=== PATIENT | female | born 2000 | race Caucasian/White ===

== ENCOUNTER 2022-03-31 11:09 | Outpatient (CLI) | payer OTHER, MEDICAID, SELFPAY ==
--- OUTSIDE RECORDS SUMMARY | 2022-04-05 15:39 | XMS_ITS | Encounter Summary ---
:2000 Author Organization [facility] Address [address] [place] [address] Care Team Providers Name Role Phone Elsewhere, Pcp Primary Care Provider Unavailable Reason for Visit Reason Onset Date Comments Outpatient COVID-19 Testing 12/17/2020 Encounter Details Date Type Department Care Team Description 12/17/2020 External Outreach Department of Family Ancelmo Juan Contact With And MedicineRick D.O. (Suspected) Exposure Building, in [address] ([place], [place] Dx) [address] [facility] [address] [place], [place] [phone] [address] (Work) [phone] 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 Tobacco Use Types Packs/Day Years Used Date Smoking Tobacco: Never Sex Assigned at Date Recorded Not on file documented as of this encounter Progress Notes Zoraiad See, R.N. - 12/17/2020 1:19 PM CDT [...] RNA, V Asymptomatic (12/18/2020 10:44 AM CDT) [facility] Method Time Signature SARS-CoV-2 Swab, 12/19/2020 [...] pe rformed using the Aptima SARS-CoV-2 assay ([employer] on the [employer] tem under emergency use authorization (EUA) by the U.S. Food and Drug Administ ration. Fact sheets for this EUA assay can be fo und at the following links: For Healthcare Providers: https://www.emere a.gov/media/486229/download For Patients: https://www.fda.gov/media/ 094385/download Specimen Anatomical Collection Method Collection Time Receive d Time (Source) Location / / Volume Laterality Varies 12/18/2020 10:44 12/18/2020 3:01 (Nasopharynx) AM CDT PM CDT Juan Ag D.O. LAB MICROBIOLOGY - GENERAL O [facility]AV[facility]ERAGENEVA Performing Organization Address City/State/ZIP Code Phon e Number [facility]- [address] [place] [address] [place] [address] [address] documented in this encounter Visit Diagnoses Diagnosis Contact With And (Suspected) Exposure To COVID-19 - Primary documented in this encounter Additional Health Concerns Infection Onset Date Last Indicated Resolved Time COVID19 Pending 12/17/2020 12/18/2020 12/19/2020 12:13 AM CDT documented as of this encounter Care Teams Needle Control Cheniller Relationship Specialty Start Date End Date Elsewhere, Pcp PCP - General 03/07/20 documented as of this encounter
--- OUTSIDE RECORDS SUMMARY | 2022-04-05 15:39 | XMS_ITS | Encounter Summary ---
:2000 Author Organization [facility] Address [address] [place] [address] Care Team Providers Name Role Phone Unavailable [...] (129 lb 10.1 oz) 08/19/2016 6:27 PM EXECUTIVE MEETING MANAGER Height - - Body Mass Index - - documented in this encounter Progress Notes Ne Grissom - 08/19/2016 5:51 PM CST [id number] CHIEF COMPLAINT/REASON FOR VISIT Abdominal pain. HISTORY [...] concerns or complaints. MEDICATIONS Please see today's [facility] EMR dated 08/19/2016. No changes. ALLERGIES Please see today's [facility] EMR dated 08/19/2016. No changes. VITAL SIGNS Please see today's [facility] EMR dated 08/19/2016. No changes. PHYSICAL EXAMINATION [...] GRISSOM NP On: 08/22/2016 09:03 AM Source: [facility] Document Id: [id number] UTIVE MEETING MANAGER documented in this encounter Miscellaneous Notes Miscellaneous - Yasmani Cole M.D. - 08/20/2016 7:29 AM CST Custom Result Letter August 20, 2016 AMAIRANI MARTINEZ [address] [facility] [id number] Dear AMAIRANI MARTINEZ, I am pleased to report that your results from the following diagnostic test(s) are benign. If you have questions or concerns, please do not hesitate to call our office. Result Name Current Result XR Abdomen 2 Views 08/19/2016 Sincerely, YASMANI COLE [address] [place] [address] [id number] Electronic Signature Electronically Signed By: YASMANI COLE MD On: August 20, 2016 This document has images extracted. Source: [facility] POWERCHART Document Id: [id number] Electronically signed by Anastasia [facility] Band Instrument Maker [id number] at 01/17/2017 9:47 PM CDT Miscellaneous - Solomon Hanson L.P.N. - 08/19/2016 6:27 PM CST Pediatric Manager College Intake/History Pediatric Manager College Intake/History Entered On: 08/19/2016 18:30 EXECUTIVE MEETING MANAGER Performed On: 08/19/2016 18:27 EXECUTIVE MEETING MANAGER by SOLOMON HANSON LPN Intake Chief Complaint [...] oz) Dosing Weight Clinic : 58.8 kg SOLOOMN HANSON LPN - 08/19/2016 18:27 EXECUTIVE MEETING MANAGER General Info Information Given By : Patient, Mother Preferred Communication Mode : Verbal Languages : Japanese Is Patient Female and 13-50 no hysterectomy : Yes Status : Patient denies Are you ? : No SOLOMON HANSON LPN - 08/19/2016 18:27 EXECUTIVE MEETING MANAGER Subjective Pain Symptoms : Yes SOLOMON HANSON LPN - 08/19/2016 18:27 EXECUTIVE MEETING MANAGER Pain Scale Pain Scale Verbal 0-10 : Open SOLOMON HANSON LPN - 08/19/2016 18:27 EXECUTIVE MEETING MANAGER Pain Pain Assessment Grid Pain 1 Location : Abdomen SOLOMON HANSON LPN - 08/19/2016 18:27 EXECUTIVE MEETING MANAGER Dependent Habits Exposure to Tobacco Smoke : Care provider denies smoking in home Smoking Status : Never smoker Tobacco 2A : No Tobacco Use/Currently Using : No Tobacco Use/Last 30 Days : No Tobacco Use/Last 12 months : No SOLOMON HANSON LPN - 08/19/2016 18:27 EXECUTIVE MEETING MANAGER Source: [facility] POWERCHART Document Id: [id number] EXECUTIVE MEETING MANAGER!36 UTIVE MEETING MANAGER documented in this encounter Plan of Treatment Not on filedocumented as of this encounter Procedures Procedure Name Priority Date/Time Associated Diagnosis Comme nts DX ABDOMEN SUPINE Routine 08/19/2016 7:13 PM Resu lts for this WITH UPRIGHT OR EXECUTIVE MEETING MANAGER procedure ar e in DECUBITUS 2 VIEWS the result s section. documented in this encounter Results DX Abdomen Supine with Upright or Decubitus 2 Views (08/19/2016 7:13 PM EXECUTIVE MEETING MANAGER) Anatomical Region Laterality Modality Abdomen Right Radiographic Imaging Specimen (Source) Anatomical Collection Method Collection Time Re ceived Time Location / / Volume Laterality 08/19/2016 7:13 PM EXECUTIVE MEETING MANAGER Addenda Addendum by Provider, Bob Taylor 08/19/2016 7:13 PM EXECUTIVE MEETING MANAGER RAD^^^OW XR Abdomen 2 Views 08/19/2016 19:13:46 Impressions 08/20/2016 7:08 AM EXECUTIVE MEETING MANAGER 1. ??No acute findings. Please see above dictation. Narrative 08/20/2016 7:08 AM EXECUTIVE MEETING MANAGER EXAM: ??XR Abdomen 2 Views. DEMOGRAPHICS: ??15 [...]
--- OUTSIDE RECORDS SUMMARY | 2022-04-05 15:39 | XMS_ITS | Encounter Summary ---
:2000 Author Organization [facility] Address [address] [place] [address] Care Team Providers Name Role Phone Mary Farr M.D. Primary Care Provider Encounter Details Date Type Department Care Team Description 01/28/2017 Hospital Encounter HX [facility] Mer Encarnacion A PRN, C.N.P. [address] [place], [place] [phone] (Wo rk) 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 Tobacco Use Types Packs/Day Years Used Date Smoking Tobacco: Never Sex Assigned at Date Recorded Not on file documented as of this encounter Nursing Notes Melissa Carlton L.P.N. - 01/31/2017 3:06 PM CDT lab results 01/31/17 Results card sent, per Dr. Diallo. Electronically Signed By: MELISSA CARLTON LPN On: 01/31/2017 03:07 PM Source: [facility] POWERCHART Document Id: [id number] documented in this encounter Plan of Treatment [...] Component Value [facility] Method Time Signature HXChlamydia by POWERCHART [...] Component Value Ref Test Analysis Performed At [facility] REMOTV Range Method Time Signature HX GC by [...] on filedocumented in this encounter Care Teams Project Scheduler Relationship Specialty Start Date End Date Mary Farr M.D. PCP - General 01/20/17 02/03/17 documented as of this encounter
--- OUTSIDE RECORDS SUMMARY | 2022-04-05 15:39 | XMS_ITS | Encounter Summary ---
:2000 Author Organization [facility] Address [address] [place] [address] Care Team Providers Name Role Phone Mer Encarnacion APRN C.N.PRodney Primary Care Provider [phone] Encounter Details Date Type Department Care Team Description 03/03/2017 Hospital Encounter HX FBCV FAMILYPRA Isai Collins, P.ARodney-CRodney [address] [facility] [place] [phone] (Wo rk) 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 [...] Johnson, P.A.-C. - 03/03/2017 2:44 PM CDT [id number] CHIEF COMPLAINT/REASON FOR VISIT Possible UTI. HISTORY [...] JOHNSON PA-C On: 04/27/2017 09:41 PM Source: [facility] MHSDOLBEYNKAYLASYS Document Id: [id number] documented in this encounter Miscellaneous Notes Miscellaneous - Dickson Johnson - 03/09/2017 9:46 PM CDT Results Notification Document Contains Addenda Addendum by TAMARA FONTANA LPN on March 10, 2017 15:33:22 CDT Spoke with: ( _ ) Patient ( X Lilo ) Parent ( _ ) Spouse ( _ ) Child ( ) Other: _ Call back telephone number: [phone] Reason for Call: -lab results Chief Complaint: Patient's mom informed of message below. She states that their insurnace has changed and now they will need to be seen in [place]. She will talk with patient and find someone in [place] to followup with. Patient/Caller response to Education/Information [...] day Callers preferred language for Healthcare discussion: latvian Was an management specialist used for this call? no Other ( --_ ) Addendum by TAMARA FONTANA LPN on March 10, 2017 15:26:46 CDT Left message for patient's mom to return call. Addendum by VANE ALEXANDER on March 10, 2017 12:33:49 CDT Lilo Ramirez (mom) called back again - she will be off work at 1:45 so call back after that please. [phone] Addendum by VANE ALEXANDER on March 10, 2017 10:07:55 CDT Lilo Ramirez (mom) returned call - best time to reach her today is 12:30 - 1:00 (during her lunch break) - otherwise leave a message and she will try back again when she can. [phone] Addendum by TAMARA FONTANA LPN on March [...] Result Name MBO Review Culture Urine Source: [facility] POWERCHART Document Id: [id number] Miscellaneous - Tamara Fontana, LRodneyP.N. - 03/03/2017 2:54 PM CDT Pediatric Manager Truck Intake/History Pediatric Manager Truck Intake/History Entered On: 03/03/2017 14:57 CDT Performed [...] Given By : Patient, Mother Languages : Romanian Is Patient Female and 13-50 no hysterectomy : Yes Status : Patient denies Are you ? : No TAMARA FONTANA HEALTH PHYSICS TECHNICIAN - 03/03/2017 14:54 CDT Subjective Pain Symptoms : No TAMARA FONTANA HEALTH PHYSICS TECHNICIAN - 03/03/2017 14:54 CDT Dependent Habits Exposure to Tobacco Smoke : Care provider denies smoking in home Smoking Status : Never smoker Tobacco 2A : No Tobacco Use/Currently Using : No Tobacco Use/Last 30 Days : No Tobacco Use/Last 12 months : No TAMARA FONTANA HEALTH PHYSICS TECHNICIAN - 03/03/2017 14:54 CDT Source: [facility] POWERCHART Document Id: [id number] CDT!28 documented in this encounter Plan of [...] Aerobic, Urine (03/03/2017 3:45 PM CDT) [facility] gist Method Time Signature Bacterial POWERCHART Culture, Aerobic, Urine HXFinal Mixed ranjan. No POWERCHART further studies unless notified. [facility] Microbiology laboratory [phone]. Specimen Anatomical Collection Method Collection Time Receive [...] Color Yellow Colorless POWERCHART Specific <=1.005 POWERCHART [place], POCT, U Comment: Reference Range Specific [place]: 1.000-1.035 pH, POCT, Urine 6.0 <5.0 POWERCHART [...] on filedocumented in this encounter Care Teams Machine Turner Relationship Specialty Start Date End Date Mer Encarnacion, DUSTY, C.N.P. PCP - General 02/04/17 03/06/[address] [place] [phone] documented as of this encounter
--- OUTSIDE RECORDS SUMMARY | 2022-04-05 15:39 | XMS_ITS | Encounter Summary ---
:2000 Author Organization [facility] Address [address] [place] [address] Care Team Providers Name Role Phone Unavailable Primary Care Provider Unavailable Encounter Details Date Type Department Care Team Description 07/23/2016 Hospital Encounter HX NO MAPPING Mireya Baugh M.D. [address] [place], [place] [phone] (Wo rk) 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 Tobacco Use Types Packs/Day Years Used Date Smoking Tobacco: Never Assessed Sex Assigned at Date Recorded Not on file documented as of this encounter Miscellaneous Notes Miscellaneous - Conversion, Historical Provider Ser - 07/23/2016 11:59 PM EMPLOYMENT MANAGER Coding Summary-Paper Based CODING DATE: 08/04/2016 FINAL [facility] STATUS: * Discharged to Home or Self Care [facility] AD[facility] DX: REASON FOR VISIT DX: FINAL DX: PRINCIPAL: R35.0 Frequency of micturition SECONDARY: PROCEDURES DOCTOR NAME DATE NOTE: The code number assigned matches the documented diagnosis and / or procedure in the patient's chart. However, the narrative phrase printed from the coding software may appear abbreviated, or result in slightly different terminology. Coded By: ORIANA RAMOS Date Saved: 08/04/2016 04:34 pm [facility] Document Id: [id number] documented in this encounter Plan of Treatment Not on filedocumented as of this encounter Visit Diagnoses Not on filedocumented in this encounter Additional Health Concerns Assessment Noted Time PHQ-9 Depression Total Score: 1 04/22/2014 12:46 PM CD T documented as of this encounter
--- OUTSIDE RECORDS SUMMARY | 2022-04-05 15:39 | XMS_ITS | Encounter Summary ---
:2000 Author Organization [facility] Address [address] [place] [address] Care Team Providers Name Role Phone Unavailable Primary Care Provider Unavailable Encounter Details Date Type Department Care Team Description 07/23/2016 Hospital Encounter HX FBCV FAMILYPRA Marley Solorzano M.D. [address] [place], [place] [phone] (Wo rk) 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 [...] (127 lb 10.3 oz) 07/23/2016 3:13 PM NURSERY HAND Height 161.5 cm (5' 3.58) 07/23/2016 3:13 PM NURSERY HAND Body Mass Index 22.2 07/23/2016 3:13 PM NURSERY HAND Body Mass Index Percentile 70.10 % 07/23/2016 3:13 PM CS T Growth Chart: CDC (Girls, 2-20 Years) documented in this encounter Progress Notes Marley Hendricks M.D. - 07/23/2016 2:45 PM CST [id number] CHIEF COMPLAINT/ REASON FOR VISIT Dysuria. HISTORY [...] behalf by Shayy Tipton, a trained medical research assistant. The creation of this record is based on the scribe's personal observations and the provider's statements to them. This document has been thomas cked and approved by the attending provider. Marley Roberson M.D./niko Electronically Signed By: MARLEY HENDRICKS MD On: 08/07/2016 08:26 PM Source: [facility] MHSDOLBEYNONRADSYS Document Id: [id number] ERY HAND documented in this encounter Miscellaneous Notes Miscellaneous - Marley Hendricks M.D. - 07/28/2016 9:10 AM NURSERY HAND Custom Result Letter July 28, 2016 AMAIRANI MARTINEZ [facility] [id number] Dear AMAIRANI MARTINEZ, Chlamydia test is negative Result Name Current Result Chlamydia DNA Probe Review 07/23/2016 GC by Nucleic Acid Amplification 07/23/2016 Sincerely, MARLEY ROBERSON [address] [place] [address] Electronic Signature Electronically Signed By: MARLEY HENDRICKS MD On: July 28, 2016 This document has images extracted. Source: [facility] POWERCHART Document Id: [id number] Electronically signed by Anastasia, [facility] Bush Regenerator [id number] at 01/02/2017 10:58 AM CDT Miscellaneous - Marley Hendricks M.D. - 07/23/2016 7:46 PM NURSERY HAND Ambulatory Patient Summary [address] [id number] Visit Information Name: AMAIRANI MARTINEZ [facility] Number: [id number] Current Date: 07/23/2016 19:46:28 Physicians [...] day x 7 day(s) New Routed to [address] [address] sulfamethoxazole-trimethoprim (Bactrim DS 800 mg-160 mg oral tablet) 1 Tablet(s), Oral, two times a day x 5 day(s) New Routed to [address] [address] Stop Taking the Following Medications: [...] if you dont have one. Go to [email or web address] and click on Create Your Account. Then, follow the directions to complete the online form. Youll be asked for your [facility] number which you can find at the top of this document. Your Goals/Additional instructions: Source: [facility] POWERCHART Document Id: [id number] ERY HAND Miscellaneous - Marley Hendricks M.D. - 07/23/2016 7:46 PM NURSERY HAND Ambulatory Discharge Medication List [address] [id number] Visit Information Name: DONYA AMAIRANICHESTER MOBLEY [facility] Number: [id number] Current Date: 07/23/2016 19:46:27 Attending [...] day x 7 day(s) New Routed to [facility] [address] [place] [address] sulfamethoxazole-trimethoprim (Bactrim DS 800 mg-160 mg oral tablet) 1 Tablet(s), Oral, two times a day x 5 day(s) New Routed to [facility] [address] [place] [address] Stop Taking the Following Medications: [...] MD Signed On:23-JUL-2016 19:46:15 Additional Information: [facility] Document Id: [id number] ERY HAND Miscellaneous - Marley Hendricks M.D. - 07/23/2016 7:42 PM NURSERY HAND Addendum by RUBIO SYLVESTER CMA on July 26, 2016 10:46:32 NURSERY HAND Spoke with: ( _ ) Patient ( [...] language for Healthcare discussion: _ Was an investigations consultant used for this call? _ Other ( --_ ) From: MARLEY HENDRICKS MD To: FADI Gaona Nurse; Sent: 07/23/2016 19:42:24 NURSERY HAND Please notify Amairani that she has a vaginal infection. I sent rx for metronidazole to the pharmacy.One pill twice daily for seven days. No alcohol. Source: [facility] POWERCHART Document Id: [id number] Electronically signed by Anastasia, [facility] [place] Regenerator [id number] at 01/02/2017 10:58 AM CDT Miscellaneous - Araceli Troy L.P.N. - 07/23/2016 3:13 PM CST Pediatric Trauma Surgeon Intake/History Pediatric Trauma Surgeon Intake/History Entered On: 07/23/2016 15:35 NURSERY HAND Performed On: 07/23/2016 15:13 NURSERY HAND by ARACELI TROY REAL ESTATE APPRAISER Intake Chief Complaint : burning with urination [...] Mass Index : 22.2 kg/m2 ARACELI TROY REAL ESTATE APPRAISER - 07/23/2016 15:13 NURSERY HAND General Info Mode of Arrival : Ambulatory Present in Room During Exam/Procedure : Alone Information Given By : Patient Languages : Macanese Is Patient Female and 13-50 no hysterectomy : Yes Status : Patient denies Are you ? : No ARACELI TROY LPN - 07/23/2016 15:13 NURSERY HAND Subjective Pain Symptoms : No ARACELI TROY LPN - 07/23/2016 15:13 NURSERY HAND Dependent Habits Exposure to Tobacco Smoke : Care provider denies smoking in home Smoking Status : Never smoker Tobacco 2A : No Tobacco Use/Currently Using : No Tobacco Use/Last 30 Days : No Tobacco Use/Last 12 months : No ARACELI TROY LPN - 07/23/2016 15:13 NURSERY HAND Source: [facility] POWERCHART Document Id: [id number] NURSERY HAND!36 ERY HAND documented in this encounter Plan of Treatment Not on filedocumented as of this encounter Procedures Procedure Name Priority Date/Time Associated Comments Diagnosis URINALYSIS WITH Routine 07/23/2016 4:10 PM Result s for this MICROSCOPIC NURSERY HAND procedure are i n the results section. BACTERIAL CULTURE, Routine 07/23/2016 4:10 PM Res ults for this AEROBIC, URINE NURSERY HAND procedure are in the results section. TEST, U Routine 07/23/2016 4:10 PM Resu lts for this NURSERY HAND procedure are i n the results section. VAGINITIS BATTERY, Routine 07/23/2016 3:54 PM Res ults for this DNA (GENITAL) NURSERY HAND procedure are in the results section. CHLAMYDIA/GONORRHOEAE Routine 07/23/2016 3:54 PM Results for this AMPLIFIED RNA NURSERY HAND procedure are in the results section. CHLAMYDIA TRACHOMATIS Routine 07/23/2016 3:54 PM Results for this AMPLIFIED RNA NURSERY HAND procedure are in the results section. documented in this encounter Results (ABNORMAL) Urinalysis, Complete, Includes Microscopic (07/23/2016 4:10 PM NURSERY HAND) [facility] Method Time Signature Clarity Cloudy (A) Clear POWERCHART HXUr Color Yellow Colorless POWERCHART Specific 1.020 POWERCHART [place], POCT, U Comment: Reference Range Specific [place]: 1.000-1.035 pH, POCT, Urine 7.5 <5.0 POWERCHART [...] Laterality Urine, First 07/23/2016 4:10 PM Voided NURSERY HAND Marley Baugh M.D. LAB URINE ORDERABLES Performing Organization Address City/State/ZIP Code Phon e Number POWERCHART (ABNORMAL) Bacterial Culture, Aerobic, Urine (07/23/2016 4:10 PM NURSERY HAND) Analysis Performed At Patho logist Time Signature Bacterial SA <=0.5 POWERCHART Culture, (POSITIVE) Aerobic, Urine HXPre [facility] POWERCHART Comment: >100,000 cfu/mL Gram Positive Cocci Presumptive Staphylococcus aureus HXFinal SA POWERCHART Comment: >100,000 cfu/mL Staphylococcus aureus Specimen (Source) Anatomical Collection Method Collection Time Re ceived Time Location / / Volume Laterality Urine, First 07/23/2016 4:10 PM Voided NURSERY HAND Organism Antibiotic Method Susceptibility Staphylococcus aureus Ciprofloxacin [...] POWERCHART Test, Qualitative, Urine (07/23/2016 4:10 PM NURSERY HAND) [facility] Method Time Signature HXBeta-hCG Negative POWERCHART Qualitative Urine Specimen Anatomical Collection Method Collection Time Receive d Time (Source) Location / / Volume Laterality Urine 07/23/2016 4:10 PM 6 4:28 NURSERY HAND PM NURSERY HAND Marley Baugh M.D. LAB URINE ORDERABLES Performing Organization Address City/[facility] Code Phon e Number POWERCHART Chlamydia / Gonorrhoeae Amplified RNA (07/23/2016 3:54 PM NURSERY HAND) Component Value Ref Test Analysis Performed At [facility] [place] Range Method Time Signature HX GC by Nucleic POWERCHART Acid Amplification HXFinal Negative for POWERCHART Neisseria gonorrhea by RNA amplification . HXFinal Reference: POWERCHART Negative HXFinal If you POWERCHART submitted a female urine sample, please note it is a Laboratory Developed Test. Specimen (Source) Anatomical Collection Method Collection Time Re ceived Time Location / / Volume Laterality Vagina 07/23/2016 3:54 PM NURSERY HAND Marley Baugh M.D. LAB MICROBIOLOGY - GEN ERAL ORDERABLES Performing Organization Address City/[facility]/ZIP Code Phon e Number POWERCHART Chlamydia Trachomatis Amplified RNA (07/23/2016 3:54 PM NURSERY HAND) Component Value Ref Test Analysis Performed At [facility] Method Time Signature HXChlamydia by POWERCHART Nucleic Acid Amplification HXFinal Negative for POWERCHART Chlamydia trachomatis by RNA amplification. HXFinal Reference: POWERCHART Negative HXFinal If you POWERCHART submitted a female urine sample, please note it is a Laboratory Developed Test. Specimen (Source) Anatomical Collection Method Collection Time Re ceived Time Location / / Volume Laterality Vagina 07/23/2016 3:54 PM NURSERY HAND Marley Baugh M.D. LAB MICROBIOLOGY - GEN ERAL ORDERABLES Performing Organization Address City/State/ZIP Code Phon e Number POWERCHART (ABNORMAL) VAGINITIS BATTERY, DNA (GENITAL) (07/23/2016 3:54 PM NURSERY HAND) Component Value Ref Test Analysis Performed At [facility] [place] Method Time Signature HXVaginitis (POSITIVE) POWERCHART Battery, DNA (Genital) HXFinal Trichomonas POWERCHART vaginalis DNA negative HXFinal Gardnerella POWERCHART vaginalis DNA positive HXFinal Paige species POWERCHART DNA negative HXFinal Reference: POWERCHART Negative Specimen (Source) Anatomical Collection Method Collection Time Re ceived Time Location / / Volume Laterality Vagina 07/23/2016 3:54 PM NURSERY HAND Marley Baugh M.D. LAB HISTORICAL ORDERS Performing Organization Address City/State/ZIP Code Phon e Number POWERCHART documented in this encounter Visit Diagnoses Not on filedocumented in this encounter Additional Health Concerns Assessment Noted Time PHQ-9 Depression Total Score: 1 04/22/2014 12:46 PM CD T documented as of this encounter
--- OUTSIDE RECORDS SUMMARY | 2022-04-05 15:39 | XMS_ITS | Clinical Summary ---
:2000 Author Organization [facility] Address [address] [place] [address] Care Team Providers Name Role Phone Elsewhere, Pcp Primary Care Provider Unavailable Source Comments Patient records contain information from all sites at [facility]. For routine questions regarding patient records, call [phone] during business hours, M-F 8:00 AM - 5:00 PM Central Time. Record requests for emergency care only can be directed to [phone] at any time.[facility] Immunizations Name Administration Dates Next Due 4vHPV [...] Address T ype Group Dates PREFERREDONE PREFERREDONE [id number] 2019-Pre [phone] PPO ADMINISTRATIVE ADMINISTRATIVE sent [phone] SERVICES SERVICES [place] [phone] Care Teams Last Dipper Relationship Specialty Start Date End Date Elsewhere, Pcp PCP - General 03/07/20
--- OUTSIDE RECORDS SUMMARY | 2022-04-05 15:39 | XMS_ITS | Encounter Summary ---
:2000 Author Organization [facility] Address [address] [place] [address] Care Team Providers Name Role Phone Elsewhere, Pcp Primary Care Provider Unavailable Encounter Details Date Type Department Care Team Description 12/18/2020 Admin Visit Department of Family Medicine, [address] [address] [facility] [phone] 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 Tobacco Use Types Packs/Day Years [...] documented as of this encounter Care Teams Process Automation Engineer Relationship Specialty Start Date End Date Elsewhere, Pcp PCP - General 03/07/20 documented as of this encounter
--- OUTSIDE RECORDS SUMMARY | 2022-04-05 15:39 | XMS_ITS | Encounter Summary ---
:2000 Author Organization [facility] Address [address] [place] [address] Care Team Providers Name Role Phone Unavailable Primary Care Provider Unavailable Encounter Details Date Type Department Care Team Description 11/16/2016 Hospital Encounter HX [facility] Jef Bonilla M.D. [address] [place] [address] ( effie) 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 Tobacco [...] Bonilla M.D. - 11/16/2016 3:40 PM CDT [id number] Patient presents initially with her mom and [...] out whether she should see a thoracic source water protection specialist or a chest surgeon. With the [...] BONILLA MD On: 11/18/2016 04:34 PM Source: [facility] MHSDOLBEYNONRADSYS Document Id: [id number] documented in this encounter Miscellaneous Notes Miscellaneous - Amelie Christie, LRodneyP.N. - 11/18/2016 4:02 PM CDT *General Message From: AMELIE CHRISTIE LPN ( Pediatric Nurse) Sent: 11/18/2016 16:02:57 CDT Subject: *General Message referral submitted to [facility], and to 's insurance Source: [facility] POWERCHART Document Id: [id number] Electronically signed by Anastasia [facility] Cheesemaker Helper [id number] at 01/18/2017 7:36 AM CDT Miscellaneous - Caballero, Lesley S, L.P.N. - 11/16/2016 3:58 PM CDT Pediatric Metal Control Coordinator Intake/History Pediatric Metal Control Coordinator Intake/History Entered On: 11/16/2016 16:00 CDT Performed On: 11/16/2016 15:58 CDT by LESLEY CABALLERO EXPERIMENTAL OUTBOARD MOTORS MECHANIC Intake Peripheral Pulse Rate : 77 /min [...] 11/16/2016 15:58 CDT General Info Languages : Cuban Is Patient Female and 13-50 no hysterectomy [...] CABALLERO LPN - 11/16/2016 15:58 CDT Source: [facility] POWERCHART Document Id: [id number] CDT!34 documented in this encounter Plan of [...]
--- OUTSIDE RECORDS SUMMARY | 2022-04-05 15:39 | XMS_ITS | Encounter Summary ---
:2000 Author Organization [facility] Address [address] [place] [address] Care Team Providers Name Role Phone Unavailable Primary Care Provider Unavailable Encounter Details Date Type Department Care Team Description 09/15/2016 Hospital Encounter HX FBCV FAMILYPRA Mireya Solorzano M.D. [address] [place], [place] [phone] (Wo rk) 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 [...] (128 lb 4.9 oz) 09/15/2016 2:20 PM AUTOMATIC LUMP MAKING MACHINE TENDER Height - - Body Mass Index - - documented in this encounter Progress Notes Mireya Hendricks M.D. - 09/15/2016 2:10 PM CST [id number] CHIEF COMPLAINT/ REASON FOR VISIT Sore throat [...] behalf by Mary Tipton, a trained medical assistant supervisor. The creation of this record is based on the scribe's personal observations and the provider's statements to them. This document has been thomas cked and approved by the attending provider. Mireya Roberson M.D./niko Electronically Signed By: MIREYA HENDRICKS MD On: 10/14/2016 08:15 AM Source: [facility] MHSDOLBEYNONRADSYS Document Id: [id number] MATIC LUMP MAKING MACHINE TENDER documented in this encounter Miscellaneous Notes Miscellaneous - Mireya Hendricks M.D. - 09/16/2016 10:21 PM AUTOMATIC LUMP MAKING MACHINE TENDER Ambulatory Patient Summary [address] [id number] Visit Information Name: AMAIRANI MARTINEZ [facility] Number: [id number] Current Date: 09/16/2016 22:21:07 [...] if you dont have one. Go to [email or web address] and click on Create Your Account. Then, follow the directions to complete the online form. Youll be asked for your [facility] number which you can find at the top of this document. Your Goals/Additional instructions: Source: [facility] Zumbl Document Id: [id number] MATIC LUMP MAKING MACHINE TENDER Miscellaneous - Mireya Hendricks M.D. - 09/16/2016 10:21 PM AUTOMATIC LUMP MAKING MACHINE TENDER Ambulatory Discharge Medication List [address] [id number] Visit Information Name: AMAIRANI MARTINEZ [facility] Number: [id number] Current Date: 09/16/2016 22:21:06 [...] MD Signed On:16-SEP-2016 22:21:00 Additional Information: Source: [facility] POWERCHART Document Id: [id number] MATIC LUMP MAKING MACHINE TENDER Miscellaneous - Amelie Christie L.P.N. - 09/15/2016 2:20 PM CST Pediatric Oncology Radiation Physician Intake/History Pediatric Oncology Radiation Physician Intake/History Entered On: 09/15/2016 14:24 AUTOMATIC LUMP MAKING MACHINE TENDER Performed On: 09/15/2016 14:20 AUTOMATIC LUMP MAKING MACHINE TENDER by AMELIE CHRISTIE MILITARY TECHNOLOGY MANAGER Intake Chief Complaint : c/o ST for [...] Weight Clinic : 58.2 kg AMELIE CHRISTIE MILITARY TECHNOLOGY MANAGER - 09/15/2016 14:20 AUTOMATIC LUMP MAKING MACHINE TENDER General Info Languages : Bengali Is Patient Female and 13-50 no hysterectomy : Yes Status : Patient denies Are you ? : No AMELIE CHRISTIE LPN - 09/15/2016 14:20 AUTOMATIC LUMP MAKING MACHINE TENDER Subjective Pain Symptoms : No AMELIE CHRISTIE LPN - 09/15/2016 14:20 AUTOMATIC LUMP MAKING MACHINE TENDER Dependent Habits Exposure to Tobacco Smoke : Care provider denies smoking in home Smoking Status : Never smoker Tobacco 2A : No Tobacco Use/Currently Using : No Tobacco Use/Last 30 Days : No Tobacco Use/Last 12 months : No AMELIE CHRISTIE LPN - 09/15/2016 14:20 AUTOMATIC LUMP MAKING MACHINE TENDER Source: [facility] POWERCHART Document Id: [id number] AUTOMATIC LUMP MAKING MACHINE TENDER!30 MATIC LUMP MAKING MACHINE TENDER documented in this encounter Plan of Treatment Not on filedocumented as of this encounter Procedures Procedure Name Priority Date/Time Associated Diagnosis Comme nts RAPID STREP A Routine 09/15/2016 2:25 PM Results for this SCREEN AUTOMATIC LUMP MAKING MACHINE TENDER procedure are i n the results section. RAPID STREP A Routine 09/15/2016 2:25 PM Results for this SCREEN AUTOMATIC LUMP MAKING MACHINE TENDER procedure are i n the results section. documented in this encounter Results Rapid Strep A Screen (09/15/2016 2:25 PM AUTOMATIC LUMP MAKING MACHINE TENDER) [facility] Method Time Signature HXRapid Strep POWERCHART Confirmation HXPre Negative for POWERCHART Group A Strep by culture. HXFinal Negative for POWERCHART Group A Strep by culture. Specimen Anatomical Collection Method Collection Time Receive d Time (Source) Location / / Volume Laterality Throat 09/15/2016 2:25 PM 7 2:25 AUTOMATIC LUMP MAKING MACHINE TENDER PM AUTOMATIC LUMP MAKING MACHINE TENDER Mireya Baugh M.D. LAB MICROBIOLOGY - GEN ERAL ORDERABLES Performing Organization Address [facility] Code Phon e Number POWERCHART Rapid Strep A Screen (09/15/2016 2:25 PM AUTOMATIC LUMP MAKING MACHINE TENDER) [facility] Method Time Signature HXStrep A POWERCHART Screen Rapid HXFinal Negative for POWERCHART Strep Group A by rapid screen. HXFinal Culture POWERCHART confirmation to follow. Specimen (Source) Anatomical Collection Method Collection Time Re ceived Time Location / / Volume Laterality Throat 09/15/2016 2:25 PM AUTOMATIC LUMP MAKING MACHINE TENDER Mireya Baugh M.D. LAB MICROBIOLOGY - GEN ERAL ORDERABLES Performing Organization Address City/[facility] Code Phon e Number POWERCHART documented in this encounter Visit Diagnoses Not on filedocumented in this encounter Additional Health Concerns Assessment Noted Time PHQ-9 Depression Total Score: 1 04/22/2014 12:46 PM CD T documented as of this encounter
--- OUTSIDE RECORDS SUMMARY | 2022-04-05 15:39 | XMS_ITS | Encounter Summary ---
:[address] [facility] Address [address] [place] [address] Care Team Providers Name Role Phone Unavailable Primary Care Provider Unavailable Encounter Details Date Type Department Care Team Description 06/15/2016 Hospital Encounter HX FBCV FAMILYPRA Kecia Garcia APRN, C.N.P. [address] [place], [place] [phone] (Wo rk) 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 [...] (132 lb 2.7 oz) 06/15/2016 3:14 PM WEBSPHERE COMMERCE ARCHITECT Height 162 cm (5' 3.78) 06/15/2016 3:14 PM WEBSPHERE COMMERCE ARCHITECT Body Mass Index 22.84 06/15/2016 3:14 PM WEBSPHERE COMMERCE ARCHITECT Body Mass Index Percentile 75.63 % 06/15/2016 [...] APRN, CNP On: 06/15/2016 03:53 PM Source: [facility] POWERCHART Document Id: [id number] PHERE COMMERCE ARCHITECT documented in this encounter Nursing Notes Kecia [...] ?? Muffled voice ?? New rash ?? [phone] [facility], [address] [place] [address], [place] [address]. All rights reserved. This information is not intended as a substitute for professional medical care. Always follow your healthcare professional's instructions. This document has images extracted. Please consider using [employer] for all your patient education needs. Source: [facility] POWERCHART Document Id: [id number] PHERE COMMERCE ARCHITECT documented in this encounter Miscellaneous Notes Miscellaneous - Kecia Garcia APRN, C.N.P. - 06/15/2016 3:52 PM CST Ambulatory Discharge Medication List [address] [id number] Visit Information Name: AMAIRANI NAQVI [facility] Number: [id number] Current Date: 06/15/2016 15:52:51 Attending Provider: KECIA GARCIA APRN [facility] Primary Care Provider: SHAYY HERNANDEZ MD AMAIRANI [...] CNP Signed On:15-JUN-2016 15:52:43 Additional Information: Source: [facility] POWERCHART Document Id: [id number] PHERE COMMERCE ARCHITECT Miscellaneous - Kecia Garcia APRN, C.N.P. - 06/15/2016 3:52 PM CST Ambulatory Patient Summary [address] [id number] Visit Information Name: AMAIRANI NAQVI [facility] Number: [id number] Current Date: 06/15/2016 15:52:52 Physicians [...] are not improving over the next week. [id number] Prompt Medical Attention if any of the [...] ?? Muffled voice ?? New rash ?? [phone] [facility], [address] [place] [address], [place] [address]. All rights reserved. This information is not [...] dont have one. Go to [email or web address] and click on Create Your Account. Then, follow the directions to complete the online form. Youll be asked for your [facility] number which you can find at the top of this document. Your Goals/Additional instructions: This document has images extracted. Please consider using [employer] for all your patient education needs. Source: [facility] POWERCHART Document Id: [id number] PHERE COMMERCE ARCHITECT Miscellaneous - Ara Lange L.P.NRodney - 06/15/2016 3:14 PM CST Pediatric Mottler Operator Intake/History Pediatric Mottler Operator Intake/History Entered On: 06/15/2016 15:16 WEBSPHERE COMMERCE ARCHITECT Performed On: 06/15/2016 15:14 WEBSPHERE COMMERCE ARCHITECT by ARA LANGE LPN Intake Chief Complaint [...] kg/m2 ARA LANGE MOIZ - 06/15/2016 15:14 WEBSPHERE COMMERCE ARCHITECT General Info Present in Room During Exam/Procedure : Mother Information Given By : Patient, Mother Preferred Communication Mode : Verbal Languages : Croatian Is Patient Female and 13-50 no hysterectomy : Yes Status : Patient denies Are you ? : No ARA LANGE MOIZ - 06/15/2016 15:14 WEBSPHERE COMMERCE ARCHITECT Subjective Pain Symptoms : Yes ARA LANGE MOIZ - 06/15/2016 15:14 WEBSPHERE COMMERCE ARCHITECT Pain Scale Pain Scale Verbal 0-10 : Open ARA LANGE MOIZ - 06/15/2016 15:14 WEBSPHERE COMMERCE ARCHITECT Pain Pain Assessment Grid Pain 1 Location : Throat Intensity : 7 Time Pattern : Intermittent ARA LANGE MOIZ - 06/15/2016 15:14 WEBSPHERE COMMERCE ARCHITECT Dependent Habits Exposure to Tobacco Smoke : Care provider denies smoking in home Smoking Status : Never smoker Tobacco 2A : No Tobacco Use/Currently Using : No Tobacco Use/Last 30 Days : No Tobacco Use/Last 12 months : No ARA LANGE MOIZ - 06/15/2016 15:14 WEBSPHERE COMMERCE ARCHITECT Source: [facility] POWERCHART Document Id: [id number] WEBSPHERE COMMERCE ARCHITECT!45 PHERE COMMERCE ARCHITECT documented in this encounter Plan of Treatment Not on filedocumented as of this encounter Procedures Procedure Name Priority Date/Time Associated Diagnosis Comme nts RAPID STREP A Routine 06/15/2016 3:51 PM Results for this SCREEN WEBSPHERE COMMERCE ARCHITECT procedure are i n the results section. RAPID STREP A Routine 06/15/2016 3:51 PM Results for this SCREEN WEBSPHERE COMMERCE ARCHITECT procedure are i n the results section. documented in this encounter Results Rapid Strep A Screen (06/15/2016 3:51 PM WEBSPHERE COMMERCE ARCHITECT) [facility] Method Time Signature HXRapid Strep POWERCHART Confirmation HXPre Negative for POWERCHART Group A Strep by culture. HXFinal Negative for POWERCHART Group A Strep by culture. Specimen Anatomical Collection Method Collection Time Receive d Time (Source) Location / / Volume Laterality Throat 06/15/2016 3:51 PM 6 3:51 WEBSPHERE COMMERCE ARCHITECT PM WEBSPHERE COMMERCE ARCHITECT Kecia J Myrom BOAT LOADER HELPER, C.N.P. LAB MICROBIOLOGY - GENERAL ORDERABLES Performing Organization Address City/State/ZIP Code Phon e Number POWERCHART Rapid Strep A Screen (06/15/2016 3:51 PM WEBSPHERE COMMERCE ARCHITECT) [facility] Method Time Signature HXStrep A POWERCHART Screen Rapid HXFinal Negative for POWERCHART Strep Group A by rapid screen. HXFinal Culture POWERCHART confirmation to follow. Specimen (Source) Anatomical Collection Method Collection Time Re ceived Time Location / / Volume Laterality Throat 06/15/2016 3:51 PM WEBSPHERE COMMERCE ARCHITECT Kecia Garcia APRN, C.N.P. LAB MICROBIOLOGY - GENERAL ORDERABLES Performing Organization Address City/State/[facility] Code Phon e Number POWERCHART documented in this encounter Visit Diagnoses Not on filedocumented in this encounter Additional Health Concerns Assessment Noted Time PHQ-9 Depression Total Score: 1 04/22/2014 12:46 PM CD T documented as of this encounter
--- OUTSIDE RECORDS SUMMARY | 2022-04-05 15:39 | XMS_ITS | Encounter Summary ---
:2000 Author Organization [facility] Address [address] [place] [address] Care Team Providers Name Role Phone Elsewhere, Pcp Primary Care Provider Unavailable Reason for Visit Reason Onset Date Comments Outpatient COVID-19 Testing 06/15/2020 Encounter Details Date Type Department Care Team Description 06/15/2020 External Outreach Department of Juan Ag Infect ion Upper Internal Medicine in J, D.O. Respiratory (Primary [place], [place] [address] Dx) [address] [place] [phone] 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 Tobacco Use Types Packs/Day Years Used Date Smoking Tobacco: Never Sex Assigned at Date Recorded Not on file documented as of this encounter Progress Notes Areli Li CRodneyMRodneyARodney - 06/15/2020 8:42 AM CST Encounter created for the drive-through COVID-19 testing. TOR FUELING SUPERVISOR documented in this encounter Plan of Treatment Not on filedocumented as of this encounter Procedures Procedure Name Priority Date/Time Associated Diagnosis Comme nts SARS CORONAVIRUS-2 Routine 06/15/2020 1:04 PM Infection Upper Results for this RNA, V REACTOR FUELING SUPERVISOR Respiratory procedure are i n the results section. documented in this encounter Results SARS Coronavirus-2 RNA, V Symptomatic (06/15/2020 1:04 PM REACTOR FUELING SUPERVISOR) [facility] Method Time Signature SARS-CoV-2 Swab, 06/16/2020 MKTO Specimen Nasopharynx 2:04 PM REACTOR FUELING SUPERVISOR Source SARS CoV-2 Undetected Undetected 06/16/2020 MKTO RNA, TMA 2:04 PM REACTOR FUELING SUPERVISOR Comment: SARS-CoV-2 RNA absent. This result does not rule out COVID-19 in the patient, as the sensitivity of the test depends o n the timing of the specimen collection and the quality of the specim en. Result should be correlated with patient's history and clinical presentat ion. ----ADDITIONAL INFORMATION---- This test is performed using the Aptima SARS-CoV-2 assay ([employer] which has received Emergency Use Authori zation (EUA) by the U.S. Food and Drug Administration. Fact sheets for this Emergency Use Autho rization (EUA) assay can be found at the following links: For Healthcare Providers: https://www.[facility] a.gov/media/811343/download For Patients: https://www.fda.gov/media/ 564436/download Specimen Anatomical Collection Method Collection Time Receive d Time (Source) Location / / Volume Laterality Varies 06/15/2020 1:04 PM 0 (Nasopharynx) REACTOR FUELING SUPERVISOR 11:28 PM REACTOR FUELING SUPERVISOR Juan Ag D.O. LAB MICROBIOLOGY - GENERAL O DEJAN Performing Organization Address City/State/ZIP Code Phon e Number [facility]- [address] [place] [address] [place] [address] [address] documented in this encounter Visit Diagnoses Diagnosis Infection Upper Respiratory - Primary documented in this encounter Additional Health Concerns Infection Onset Date Last Indicated Resolved Time COVID19 Pending 06/15/2020 06/15/2020 06/16/2020 2:04 PM REACTOR FUELING SUPERVISOR documented as of this encounter Care Teams Campus Aide Relationship Specialty Start Date End Date Elsewhere, Pcp PCP - General 03/07/20 documented as of this encounter
--- OUTSIDE RECORDS SUMMARY | 2022-04-05 15:39 | XMS_ITS | Encounter Summary ---
:2000 Author Organization [facility] Address [address] [place] [address] Care Team Providers Name Role Phone Elsewhere, Pcp Primary Care Provider Unavailable Encounter Details Date Type Department Care Team Description 06/15/2020 Admin Visit Department of Family Medicine, [address] [address] [facility] [phone] 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 Tobacco Use Types Packs/Day Years Used Date Smoking Tobacco: Never Sex Assigned at Date Recorded Not on file documented as of this encounter Plan of Treatment Not on filedocumented as of this encounter Visit Diagnoses Not on filedocumented in this encounter Additional Health Concerns Infection Onset Date Last Indicated Resolved Time COVID19 Pending 06/15/2020 06/15/2020 06/16/2020 2:04 PM TOOL MACHINIST documented as of this encounter Care Teams Custom Feed Mill Operator Relationship Specialty Start Date End Date Elsewhere, Pcp PCP - General 03/07/20 documented as of this encounter
--- OUTSIDE RECORDS SUMMARY | 2022-04-05 15:39 | XMS_ITS | Encounter Summary ---
:2000 Author Organization [facility] Address [address] [place] [address] Care Team Providers Name Role Phone Unavailable Primary Care Provider Unavailable Encounter Details Date Type Department Care Team Description 06/15/2016 Hospital Encounter HX NO MAPPING Mer Encarnacion, DUSTY, C.N.P. [address] [place], [place] [phone] (Wo rk) 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 Tobacco Use Types Packs/Day Years Used Date Smoking Tobacco: Never Assessed Sex Assigned at Date Recorded Not on file documented as of this encounter Miscellaneous Notes Miscellaneous - Conversion, Historical Provider Ser - 06/15/2016 11:59 PM BUSINESS DATA ANALYST Coding Summary-Paper Based CODING DATE: 06/24/2016 FINAL [facility] STATUS: * Discharged to Home or Self Care [facility]: REASON FOR VISIT DX: [...] MOSS Date Saved: 06/24/2016 11:23 am Source: [employer] Document Id: [id number] documented in this encounter Plan of Treatment Not on filedocumented as of this encounter Visit Diagnoses Not on filedocumented in this encounter Additional Health Concerns Assessment Noted Time PHQ-9 Depression Total Score: 1 04/22/2014 12:46 PM CD T documented as of this encounter
--- OUTSIDE RECORDS SUMMARY | 2022-04-05 15:39 | XMS_ITS | Encounter Summary ---
:2000 Author Organization [facility] Address [address] [place] [address] Care Team Providers Name Role Phone Unavailable Primary Care Provider Unavailable Encounter Details Date Type Department Care Team Description 09/15/2016 Hospital Encounter HX NO MAPPING Mireya Baugh M.D. [address] [place], [place] [phone] (Wo rk) 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 Tobacco Use Types Packs/Day Years Used Date Smoking Tobacco: Never Sex Assigned at Date Recorded Not on file documented as of this encounter Miscellaneous Notes Miscellaneous - Anastasia, Claudia Provider Ser - 09/15/2016 11:59 PM ORNAMENTAL MACHINE OPERATOR Coding Summary-Paper Based CODING DATE: 09/27/[address] [facility] STATUS: * Discharged to Home or Self Care [facility] DX: REASON FOR VISIT DX: FINAL DX: PRINCIPAL: J02.9 Acute pharyngitis, unspecified SECONDARY: PROCEDURES DOCTOR NAME DATE NOTE: The code number assigned matches the documented diagnosis and / or procedure in the patient's chart. However, the narrative phrase printed from the coding software may appear abbreviated, or result in slightly different terminology. Coded By: NIKHIL MARINO Date Saved: 09/27/2016 10:22 am Source: [employer] Document Id: [id number] documented in this encounter Plan of Treatment Not on filedocumented as of this encounter Visit Diagnoses Not on filedocumented in this encounter Additional Health Concerns Assessment Noted Time PHQ-9 Depression Total Score: 1 04/22/2014 12:46 PM CD T documented as of this encounter
--- OUTSIDE RECORDS SUMMARY | 2022-04-05 15:39 | XMS_ITS | Encounter Summary ---
:2000 Author Organization [facility] Address [address] [place] [address] Care Team Providers Name Role Phone Elsewhere, Pcp Primary Care Provider Unavailable Reason for Visit Reason Comments COVID Inquiry Encounter Details Date Type Department Care Team Description 12/17/2020 Clinical Communication Department of [facility], Pcp COVID Inquiry [facility], [facility], in [place], [place] [address] [place] [address] 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 Tobacco Use Types Packs/Day Years Used Date Smoking Tobacco: Never Sex Assigned at Date Recorded Not on file documented as of this encounter Miscellaneous Notes Telephone Encounter - Kasia Ayala - 12/17/2020 12:26 PM CDT What is the purpose of the call?: Symptomatic (Calling PCP Office) Calling [place] [facility] What region is the patient calling from? : [place] Have you tested positive for COVID-19 in [...] sending patient for testing in [facility] or [facility], route encounter to the correct testing pool. documented in this encounter Plan of Treatment Not on filedocumented as of this encounter Visit Diagnoses Not on filedocumented in this encounter Care Teams Radio Program Checker Relationship Specialty Start Date End Date Elsewhere, Pcp PCP - General 03/07/20 documented as of this encounter
--- OUTSIDE RECORDS SUMMARY | 2022-04-05 15:39 | XMS_ITS | Clinical Summary ---
:2000 Author Organization [facility] [place] [address] Care Team Providers Name Role Phone Tamara Wei MD Primary Care Provider [phone] Allergies No known active allergies Medications [...] Comments Blood Pressure 118/60 07/17/2021 9:18 AM BUSINESS PLANNING DIRECTOR Pulse 109 07/17/2021 9:18 AM BUSINESS PLANNING DIRECTOR Temperature 36.4 ??C (97.5 ??F) 02/03/2021 3:05 PM CDT Respiratory Rate 14 02/03/2021 3:05 PM CDT Oxygen Saturation 99% 02/03/2021 3:05 PM CDT Inhaled Oxygen Concentration - - Weight 74.7 kg (164 lb 11.2 oz) 07/17/2021 9:18 AM BUSINESS PLANNING DIRECTOR Height 166 cm (5' 5.35) 07/17/2021 9:18 AM BUSINESS PLANNING DIRECTOR Body Mass Index 27.11 07/17/2021 9:18 AM BUSINESS PLANNING DIRECTOR Plan of Treatment Health Maintenance Due Date [...] ss Type Group PREFERRED ONE PREFERRED ONE [id number] 2017-Present [address] [place] [address] [place] [id number] 2021-Presen [address] [address] [place] [address] Care Teams Wireless Sales Manager Relationship Specialty Start Date End Date Tamara Wei MD PCP - General Family Practice 04/12/171999 [place] [address]
--- OUTSIDE RECORDS SUMMARY | 2022-04-05 15:39 | XMS_ITS | Encounter Summary ---
:2000 Author Organization [facility] Address [address] [place] [address] Care Team Providers Name Role Phone Alysha Mer Alba APRN C.N.PRodney Primary Care Provider [phone] Encounter Details Date Type Department Care Team Description 03/03/2017 Hospital Encounter HX NO MAPPING Arturo Collins, P.ARodney-CRodney [address] [facility] [place], [place] [phone] (Wo rk) 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 Tobacco Use Types Packs/Day Years Used Date Smoking Tobacco: Never Sex Assigned at Date Recorded Not on file documented as of this encounter Miscellaneous Notes Miscellaneous - Conversion, Historical Provider Ser - 03/03/2017 11:59 PM CDT Coding Summary-Paper Based CODING DATE: 03/14/2017 FINAL [facility] STATUS: * Discharged to Home or Self Care [facility] DX: REASON FOR VISIT DX: FINAL DX: PRINCIPAL: R30.0 Dysuria SECONDARY: PROCEDURES DOCTOR NAME DATE NOTE: The code number assigned matches the documented diagnosis and / or procedure in the patient's chart. However, the narrative phrase printed from the coding software may appear abbreviated, or result in slightly different terminology. Coded By: NIKHIL MARINO Date Saved: 03/14/2017 09:42 am [facility] Document Id: [id number] documented in this encounter Plan of Treatment Not on filedocumented as of this encounter Visit Diagnoses Not on filedocumented in this encounter Care Teams Weaving Teacher Relationship Specialty Start Date End Date Mer Encarnacion, DUSTY, C.N.P. PCP - General 02/04/17 03/06/[address] [phone] documented as of this encounter
--- OUTSIDE RECORDS SUMMARY | 2022-04-05 15:39 | XMS_ITS | Encounter Summary ---
:2000 Author Organization [facility] Address [address] [place] [address] Care Team Providers Name Role Phone Mary Farr M.D. Primary Care Provider Encounter Details Date Type Department Care Team Description 01/27/2017 Hospital Encounter HX [facility] Kecia Garcia APRN, C.N.P. [address] [place], [place] [phone] (Wo rk) Social [...] go to college. 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 MEDICATIONS No active medications [...] Child & Teen Checkup Charge Developmental Testing ([place]) Charge - 72303 OV Est Pt Prev Svc [id number] Encounter [...] # 84 tab(s), 3 Refill(s), Maintenance, Pharmacy: [id number] Electronically Signed By: KECIA GARCIA APRN, CNP On: 01/27/2017 04:39 PM Source: [facility] POWERCHART Document Id: [id number] documented in this encounter Procedure Notes Ara Lange L.P.N. - 01/27/2017 4:16 PM CDT Vision Testing Vision Testing Entered On: 01/27/2017 16:16 CDT Performed On: 01/27/2017 16:16 CDT by ARA LANGE LPN Vision Testing Eye, Right with Correction : 20/25 Eye, Left w/Correction : 20/20 ARA LANGE LPN - 01/27/2017 16:16 CDT Source: [facility] Document Id: [id number] CDT!4 Ara Lange L.P.N. - 01/27/2017 4:14 [...] LANGE LPN - 01/27/2017 16:14 CDT Source: [facility] Document Id: [id number] CDT!16 documented in this encounter Nursing Notes [...] whole grains every day. Less healthy foods-like cymraes fries, candy, and chips-should be eaten rarely. [...] this visit. Based on recommendations from the [employer], at this visit your [...] away. Next checkup at: PARENT NOTES: ?? [phone] Alyssa Hammond, [address] [place] [address], [place] [address]. All rights reserved. This information is not intended as a substitute for professional medical care. Always follow your healthcare professional's instructions. This document has images extracted. Please consider using [employer] for all your patient education needs. Source: [facility] [employer] Document Id: [id number] documented in this encounter Miscellaneous Notes Miscellaneous - Debbie Orta, MICHAEL([facility]) - 01/27/2017 5:13 PM CDT *General Message [...] Please send new order to queue. [facility] Document Id: [id number] Miscellaneous - Ara Lange L.P.N. - 01/27/2017 [...] LANGE LPN - 01/27/2017 16:44 CDT Source: [facility] Document Id: [id number] CDT!16 Miscellaneous - Kecia Garcia APRN, C.N.P. - 01/27/2017 4:28 PM CDT Ambulatory Patient Summary [facility] [address] [place] [phone] Visit Information Name: AMAIRANI NAQVI [facility] Number: [id number] Current Date: 01/27/2017 16:28:23 Physicians Attending Provider: KECIA GARCIA APRN CLAIMS CUSTOMER SERVICE REPRESENTATIVE Primary Care Provider: KECIA GARCIA APRN CLAIMS CUSTOMER SERVICE REPRESENTATIVE AMAIRANI NAQVI has been given the following [...] Oral, once a day New Routed to [address] [address] Stop Taking the Following Medications: Medication list [...] whole grains every day. Less healthy foods--like cymraes fries, candy, and chips--should be eaten rarely. [...] this visit. Based on recommendations from the [employer], at this visit your [...] away. Next checkup at: PARENT NOTES: ?? [phone] [facility], [address] [place] [address]. All rights reserved. This information is not [...] if you dont have one. Go to [email or web address] and click on Create Your Account. Then, follow the directions to complete the online form. Youll be asked for your [facility] number which you can find at the top of this document. Your Goals/Additional instructions: This document has images extracted. Please consider using [employer] for all your patient education needs. Source: [facility] POWERCHART Document Id: [id number] Miscellaneous - Kecia Garcia APRN, C.N.P. - 01/27/2017 4:28 PM CDT Ambulatory Discharge Medication List [address] [id number] Visit Information Name: AMAIRANI NAQVI [facility] Number: [id number] Current Date: 01/27/2017 16:28:23 Attending [...] Oral, once a day New Routed to [address] [address] Stop Taking the Following Medications: Medication list [...] CNP Signed On:27-JAN-2017 16:28:05 Additional Information: Source: [facility] POWERCHART Document Id: [id number] Miscellaneous - Ara Lange L.P.N. - 01/27/2017 3:58 PM CDT Pediatric Mortar Maker Intake/History Pediatric Mortar Maker Intake/History Entered On: 01/27/2017 16:01 CDT Performed [...] Preferred Communication Mode : Verbal Languages : Mozambican Is Patient Female and 13-50 no hysterectomy [...] LANGE LPN - 01/27/2017 15:58 CDT Source: [facility] POWERCHART Document Id: [id number] CDT!36 documented in this encounter Plan of Treatment Not on filedocumented as of this encounter Visit Diagnoses Not on filedocumented in this encounter Care Teams Sleep Medicine Physician Relationship Specialty Start Date End Date Mary Farr M.D. PCP - General 01/20/17 02/03/17 documented as of this encounter
--- OUTSIDE RECORDS SUMMARY | 2022-04-05 15:40 | XMS_ITS | Encounter Summary ---
:2000 Author Organization [facility] Address [address] [place] [address] Care Team Providers Name Role Phone Unavailable Primary Care Provider Unavailable Encounter Details Date Type Department Care Team Description 08/24/2012 Hospital Encounter HX [facility] Tom Peoples M.D. [address] [place], [place] [address] (Wo rk) 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 Tobacco Use Types Packs/Day Years Used Date Smoking Tobacco: Never Assessed Sex Assigned at Date Recorded Not on file documented as of this encounter Progress Notes Venus Peoples M.D. - 08/24/2012 11:15 AM CST [id number] CHIEF COMPLAINT/REASON FOR VISIT Sore throat. HISTORY OF PRESENT ILLNESS Amairani is 11 years old and here with her mother. Also seen along with [employer] student, Christine Corado. Amairani began this morning [...] PEOPLES MD On: 08/29/2012 08:22 AM Source: [facility] MHSDOLBEYNONRADSYS Document Id: [id number] TH INFORMATION TECHNOLOGIST documented in this encounter Miscellaneous Notes Miscellaneous - Venus Peoples M.D. - 08/24/2012 11:44 AM CST Ambulatory Depart Summary [address] [address] Visit Information Name: AMAIRANI MARTINEZ [facility] Number: [id number] Visit Date: 08/24/2012 11:44:18 Attending [...] your provider for clarification. Additional Information: Source: [facility] POWERCHART Document Id: [id number] RTO Boland - Venus Peoples M.D. - 08/24/2012 11:44 AM CST Ambulatory Patient Summary [address] [address] Visit Information Name: AMAIRANI MARTINEZ [facility] Number: [id number] Current Date: 08/24/2012 11:44:19 Physicians [...] No Appointments found Your Goals/Additional instructions: Source: [facility] POWERCHART Document Id: [id number] RTO Boland - Chantell Pisano 08/24/2012 11:22 AM CST Pediatric Infection Control Coordinator Intake/History Pediatric Infection Control Coordinator Intake/History Entered On: 08/24/2012 11:24 HEALTH INFORMATION TECHNOLOGIST Performed On: 08/24/2012 11:22 HEALTH INFORMATION TECHNOLOGIST by CHANTELL PISANO Intake Chief Complaint : throat hurt, fever, headache, runny nose, cough Temperature Core : 38C(Converted to: 100.4DegF) Apical Heart Rate : 82/min Respiratory Rate : 20/min Systolic Blood Pressure : 100mmHg Diastolic Blood Pressure : 56mmHg NIBP Mean : 71mmHg BP Location : Left upper extremity Blood Pressure Cuff Size : Pediatric CHANTELL PISANO - 08/24/2012 11:22 HEALTH INFORMATION TECHNOLOGIST Subjective Pain Symptoms : No CHANTELL PISANO - 08/24/2012 11:22 HEALTH INFORMATION TECHNOLOGIST Dependent Habits Tobacco Use/Currently Using : No Smoking Status : Never smoker CHANTELL PISANO - 08/24/2012 11:22 HEALTH INFORMATION TECHNOLOGIST Allergy Allergies (Active) NKA Estimated Onset Date: Unspecified ; Created By: CHANTELL UMANA; Reaction Status: Active ; Category: Drug ; Substance: NKA ; Type: Allergy ; Updated By: CHANTELL UMANA; Reviewed Date: 08/24/201211:22 HEALTH INFORMATION TECHNOLOGIST Source: [facility] POWERCHART Document Id: [id number] TH INFORMATION TECHNOLOGIST documented in this encounter Plan of Treatment Not on filedocumented as of this encounter Procedures Procedure Name Priority Date/Time Associated Diagnosis Comme nts RAPID STREP A Routine 08/24/2012 11:35 AM Results for this SCREEN HEALTH INFORMATION TECHNOLOGIST procedure are i n the results section. RAPID STREP A Routine 08/24/2012 11:35 AM Results for this SCREEN HEALTH INFORMATION TECHNOLOGIST procedure are i n the results section. documented in this encounter Results Rapid Strep A Screen (08/24/2012 11:35 AM HEALTH INFORMATION TECHNOLOGIST) [facility] Method Time Signature HXRapid Strep POWERCHART Confirmation HXFinal Negative POWERCHART Specimen Anatomical Collection Method Collection Time Receive d Time (Source) Location / / Volume Laterality Throat 08/24/2012 11:35 08/24/2012 AM HEALTH INFORMATION TECHNOLOGIST 11:35 AM HEALTH INFORMATION TECHNOLOGIST Venus Peoples M.D. LAB MICROBIOLOGY - GENERAL O DEJAN Performing Organization Address City/[facility] Code Phon e Number POWERCHART Rapid Strep A Screen (08/24/2012 11:35 AM HEALTH INFORMATION TECHNOLOGIST) [facility] Method Time Signature HXStrep A POWERCHART Screen Rapid HXFinal Negative for POWERCHART Strep Group A by rapid screen. HXFinal Culture POWERCHART confirmation to follow. Specimen (Source) Anatomical Collection Method Collection Time Re ceived Time Location / / Volume Laterality Throat 08/24/2012 11:35 AM HEALTH INFORMATION TECHNOLOGIST Venus Peoples M.D. LAB MICROBIOLOGY - GENERAL O DEJAN Performing Organization Address City/[facility] Code Phon e Number POWERCHART documented in this encounter Visit Diagnoses Not on filedocumented in this encounter
--- OUTSIDE RECORDS SUMMARY | 2022-04-05 15:40 | XMS_ITS | Encounter Summary ---
:2000 Author Organization [facility] Address [address] [place] [address] Care Team Providers Name Role Phone Unavailable Primary Care Provider Unavailable Encounter Details Date Type Department Care Team Description 09/28/2010 Hospital Encounter HX [facility] Tom Peoples M.D. [address] [place], [place] [address] (Wo rk) 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 Tobacco [...] (77 lb 9.6 oz) 09/28/2010 11:18 AM AIR TRAFFIC CONTROL MANAGER Height - - Body Mass Index - - documented in this encounter Progress Notes Venus Peoples M.D. - 09/28/2010 12:00 AM CST [id number] CHIEF COMPLAINT/ REASON FOR VISIT Fevers. HISTORY [...] difficulty breathing. KSL/sks Signed Venus Peoples M.D. Support Staff Electronically Signed By: VENUS PEOPLES MD On: 10/02/2010 04:21 Source: [facility] MHSDOLBEYNONRADSYS Document Id: [id number] TRAFFIC CONTROL MANAGER documented in this encounter Miscellaneous Notes Miscellaneous - Venus Peoples M.D. - 09/28/2010 11:34 AM CST Ambulatory Patient Summary [address] [address] Visit Information Name: AMAIRANI MARTINEZ Current Date: 09/28/2010 11:34:05 Primary Care Provider: VENUS PEOPLES MD [phone] Your Medications Here is a list of [...] No Appointments found Your Goals/Additional instructions: Source: [employer] Document Id: [id number] Kya - Venus Peoples M.D. - 09/28/2010 11:34 AM CST [place] [address] Visit Information Name: AMAIRANI MARTINEZ Current Date: 09/28/2010 11:34:05 Primary Care Provider: VENUS PEOPLES MD [id number] AMAIRANI MARTINEZ has been given the following [...] to the patient and/or family, guardian/caregiver. Source: [employer] Document Id: [id number] arima Boland - Chantell Sandoval - 09/28/2010 11:18 AM CST Pediatric Steelworker Intake/History Pediatric Steelworker Intake/History Entered On: 09/28/2010 11:20 AIR TRAFFIC CONTROL MANAGER Performed On: 09/28/2010 11:18 AIR TRAFFIC CONTROL MANAGER by CHANTELL UMANA Intake Ambulatory Intake Additional Information: started Thurs. Temps 102, ibuprofen and cough med at night. last night emesis after coughing. scarred tms, ow nml exam VENUS PEOPLES MD - 09/28/2010 11:33 AIR TRAFFIC CONTROL MANAGER Chief Complaint: fever, cough x 4 days Temperature Core: 37.8C(Converted to: 100.0DegF) Apical Heart Rate: 96/min (HI) Respiratory Rate: 22/min Systolic Blood Pressure: 96mmHg Diastolic Blood Pressure: 54mmHg NIBP Mean: 68mmHg BP Location: Right upper extremity Actual Weight: 35.200kg(Converted to: 77lb 10oz) Dosing Weight Clinic: 35.20kg CHANETLL UMANA - 09/28/2010 11:18 AIR TRAFFIC CONTROL MANAGER Subjective Pain Symptoms: No CHANTELL UMANA - 09/28/2010 11:18 AIR TRAFFIC CONTROL MANAGER Dependent Habits Tobacco Use/Currently Using: No CHANTELL UMANA - 09/28/2010 11:18 AIR TRAFFIC CONTROL MANAGER Allergy Allergies (Active) NKA Estimated Onset Date: Unspecified ; Created By: CHANTELL UMANA; Reaction Status: Active ; Category: Drug ; Substance: NKA ; Type: Allergy ; Updated By: CHANTELL UMANA; Reviewed Date: 09/28/201011:18 AIR TRAFFIC CONTROL MANAGER Source: [facility] POWERCHART Document Id: [id number] AIR TRAFFIC CONTROL MANAGER!3 TRAFFIC CONTROL MANAGER documented in this encounter Plan of Treatment Not on filedocumented as of this encounter Visit Diagnoses Not on filedocumented in this encounter
--- OUTSIDE RECORDS SUMMARY | 2022-04-05 15:40 | XMS_ITS | Encounter Summary ---
:2000 Author Organization [facility] Address [address] [place] [address] Care Team Providers Name Role Phone Unavailable Primary Care Provider Unavailable Encounter Details Date Type Department Care Team Description 07/06/2011 Hospital Encounter HX [facility] Tom Peoples M.D. [address] [place], [place] [address] (Wo rk) 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 Tobacco [...] (91 lb 0.8 oz) 07/06/2011 1:40 PM FIELD MARKETING MANAGER Height 148.6 cm (4' 10.5) 07/06/2011 1:40 PM FIELD MARKETING MANAGER Body Mass Index 18.7 07/06/2011 1:40 PM FIELD MARKETING MANAGER Body Mass Index Percentile 68.89 % 07/06/2011 1:40 PM CS T Growth Chart: CDC (Girls, 2-20 Years) documented in this encounter Progress Notes Venus Peoples M.D. - 07/06/2011 12:00 AM CST [id number] CHIEF COMPLAINT/ REASON FOR VISIT Fever and [...] more time. KSL/glt Signed Venus Peoples M.D. Resistance Machine Welder Setter Electronically Signed By: VENUS PEOPLES MD On: 07/08/2011 01:55 PM Source: [facility] MHSDOLBEYNONRADSYS Document Id: [id number] D MARKETING MANAGER documented in this encounter Miscellaneous Notes Miscellaneous - Venus Peoples M.D. - 07/06/2011 1:59 PM CST Ambulatory Patient Summary [address] [address] Visit Information Name: AMAIRANI MARTINEZ Current Date: [...] No Appointments found Your Goals/Additional instructions: Source: [employer] Document Id: [id number] D MARKETING MANAGER Miscellaneous - Venus Peoples M.D. - 07/06/2011 1:59 PM CST Ambulatory Depart Summary [address] [address] Visit Information Name: DONYA AMAIRANICHESTER NICOLELENNIE Current [...] Oral once a day Additional Information: Source: [employer] Document Id: [id number] D MARKETING MANAGER Miscellaneous - Chantell Sandoval - 07/06/2011 1:40 PM CST Pediatric Tongue Stitcher Intake/History Pediatric Tongue Stitcher Intake/History Entered On: 07/06/2011 13:43 FIELD MARKETING MANAGER Performed On: 07/06/2011 13:40 FIELD MARKETING MANAGER by CHANTELL UMANA Intake Chief Complaint : [...] : 18.70kg/m2 CHANTELL UMANA - 07/06/2011 13:40 FIELD MARKETING MANAGER Subjective Pain Symptoms : No CHANTELL UMANA - 07/06/2011 13:40 FIELD MARKETING MANAGER Dependent Habits Tobacco Use/Currently Using : No Smoking Status : Never smoker CHANTELL UMANA - 07/06/2011 13:40 FIELD MARKETING MANAGER Allergy Allergies (Active) NKA Estimated Onset Date: Unspecified ; Created By: CHANTELL UMANA; Reaction Status: Active ; Category: Drug ; Substance: NKA ; Type: Allergy ; Updated By: CHANTELL UMANA; Reviewed Date: 07/06/201113:39 FIELD MARKETING MANAGER Source: [facility] POWERCHART Document Id: [id number] FIELD MARKETING MANAGER!21 D MARKETING MANAGER documented in this encounter Plan of Treatment Not on filedocumented as of this encounter Visit Diagnoses Not on filedocumented in this encounter
--- OUTSIDE RECORDS SUMMARY | 2022-04-05 15:40 | XMS_ITS | Encounter Summary ---
:2000 Author Organization [facility] Address [address] [place] [address] Care Team Providers Name Role Phone Unavailable Primary Care Provider Unavailable Encounter Details Date Type Department Care Team Description 09/22/2012 Hospital Encounter HX [facility] David Campuzano M.D. [address] [place], [place] [phone] (Wo rk) 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 Tobacco Use Types Packs/Day Years Used Date Smoking Tobacco: Never Assessed Sex Assigned at Date Recorded Not on file documented as of this encounter Progress Notes Nneka Mcnair - 09/22/2012 10:22 AM CST [facility] Exam [facility] Exam Entered On: 09/22/2012 10:45 RAILROAD SIGNAL AND SWITCH OPERATOR Performed On: 09/22/2012 10:22 RAILROAD SIGNAL AND SWITCH OPERATOR by NNEKA MCNAIR Chief Complaint and History Chief Complaint : Routine exam (Comment: NEW CE. [NNEKA MCNAIR - 09/22/2012 10:22 RAILROAD SIGNAL AND SWITCH OPERATOR] ) Pain Symptoms : No Smoking Status : Never smoker Comment : HERE WITH MOTHER. STATES ---- 3 MOS HX OF H/A'S. 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 GOOD GEN HEALTH. ROS--WNL. NNEKA MCNAIR - 09/22/2012 10:22 RAILROAD SIGNAL AND SWITCH OPERATOR Vision Testing Right Eye Vision Testing : With glasses - primary, 20/25, -1 Left Eye Vision Testing : With glasses - primary, 20/30 (Comment: PH25 [NNEKA MCNAIR - 09/22/2012 10:22 RAILROAD SIGNAL AND SWITCH OPERATOR] ) Near Vision Right Eye : With glasses - primary, J-3 (Comment: -2 [NATALIYA MCNAIRNA Tom - 09/22/2012 10:22 RAILROAD SIGNAL AND SWITCH OPERATOR] ) Near Vision Left Eye : With glasses - primary, J-1 NATALIYA MCNAIRNA Tom - 09/22/2012 10:22 RAILROAD SIGNAL AND SWITCH OPERATOR Refraction Current Glasses Rx Grid Glasses/RE Glasses/LE Sphere : -3.00 -3.00 Prism : 1/2 BASE UP XUNATALIYAMARYELLEN Santos - 09/22/2012 10:22 RAILROAD SIGNAL AND SWITCH OPERATOR XUNATALIYANA Tom - 09/22/2012 10:22 RAILROAD SIGNAL AND SWITCH OPERATOR Right Eye Manifest Grid Date : 09/22/2012 RAILROAD SIGNAL AND SWITCH OPERATOR Performed by : [employer] Sphere : -3.50 Visual Acuity Distance : 20/20 Visual Acuity Near : 20/20 XUNATALIYAMARYELLEN Santos - 09/22/2012 10:22 RAILROAD SIGNAL AND SWITCH OPERATOR Left Eye Manifest Grid Date : 09/22/2012 RAILROAD SIGNAL AND SWITCH OPERATOR Performed by : [employer] Sphere : -3.50 Visual Acuity Distance : 20/20 Visual Acuity Near : 20/20 XUNATALIYAMARYELLEN Santos - 09/22/2012 10:22 RAILROAD SIGNAL AND SWITCH OPERATOR Ocular Testing EOMS : Normal Comment : 6 TO 3 6 TO 3 -MG Pupils : PERRLA Confrontation Lea : RE Normal, LE Normal NATALIYA MCNAIRNA Tom - 09/22/2012 10:22 RAILROAD SIGNAL AND SWITCH OPERATOR Eye Drops Exam Date of Last Eye Exam : 09/22/2012 RAILROAD SIGNAL AND SWITCH OPERATOR Child Mix Eye Drop Eye : Both eyes Child Mix Eye Drop Amount : One drop Child Mix Eye Drop Time : 10:43 RAILROAD SIGNAL AND SWITCH OPERATOR Child Mix Eye Drop Comment : PERMISSION GIVEN BY MOTHER. NATALIYA MCNAIRNA Tom - 09/22/2012 10:22 RAILROAD SIGNAL AND SWITCH OPERATOR Source: [facility] POWERCHART Document Id: [id number] ROAD SIGNAL AND SWITCH OPERATOR documented in this encounter H&P Notes Ping Rosario M.D. - 09/22/2012 10:01 AM CST [id number] Very pleasant patient who comes in today with myopia and hyperopia with headache. IMPRESSION / REPORT / PLAN We will see her back in 1 year, sooner if there are difficulties or problems. Everything appears to be doing very, very good. We will see her sooner if there are any difficulties or problems. Ping Rosario M.D./arnold DOCID: [id number] Electronically Signed By: PING ROSARIO MD On: 09/27/2012 07:52 AM Source: [facility] MHSDOLBEYNKAYLASYS Document Id: [id number] ROAD SIGNAL AND SWITCH OPERATOR documented in this encounter Miscellaneous Notes Miscellaneous - Ping Rosario M.D. - 09/22/2012 11:20 AM CST Ambulatory Patient Summary [facility] [address] [place] [address] Visit Information Name: AMAIRANI MARTINEZ [facility] Number: [id number] Current Date: 09/22/2012 11:20:46 [...] No Appointments found Your Goals/Additional instructions: Source: [facility] POWERCHART Document Id: [id number] ROAD SIGNAL AND SWITCH OPERATOR Miscellaneous - Ping Rosario M.D. - 09/22/2012 11:20 AM CST Ambulatory Depart Summary [facility] [address] [place] [address] Visit Information Name: AMAIRANI MARTINEZ [facility] Number: [id number] Visit Date: 09/22/2012 11:20:45 [...] clarification. Additional Information: Yes - . Source: [facility] POWERCHART Document Id: [id number] ROAD SIGNAL AND SWITCH OPERATOR documented in this encounter Plan of Treatment Not on filedocumented as of this encounter Visit Diagnoses Not on filedocumented in this encounter
--- OUTSIDE RECORDS SUMMARY | 2022-04-05 15:40 | XMS_ITS | Encounter Summary ---
:[address] [facility] Address [address] [place] [address] Care Team Providers Name Role Phone Unavailable Primary Care Provider Unavailable Encounter Details Date Type Department Care Team Description 12/10/2015 Hospital Encounter HX [facility] PEDIATRIC Sa manolo Farr M.D. [phone] (Wo rk) 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 Tobacco Use Types [...] tired for a week, concerned about mono, ACSTILLO's every other day HISTORY OF PRESENT ILLNESS [...] Absolute: 4.58 12/10/15 Lymph Absolute: 2.88 12/10/15 [place] Absolute: 0.81 High 12/10/15 Eos Absolute: 0.08 [...] FARR MD On: 12/13/2015 12:23 PM Source: [facility] POWERCHART Document Id: [id number] documented in this encounter Miscellaneous Notes Miscellaneous - Mary Farr M.D. - 12/13/2015 12:25 PM CDT Normal Results Letter December 13, 2015 AMAIRANI MARTINEZ [address] [facility] [id number] Dear AMAIRANI MARTINEZ, I am pleased to [...] Absolute (x10(9)/L) 2.88 12/10/2015 1.20 - 5.20 [place] Absolute (x10(9)/L) (H) 0.81 12/10/2015 0.00 - 0.80 Eos Absolute (x10(9)/L) 0.08 12/10/2015 0.00 - 0.50 Baso Absolute (x10(9)/L) 0.02 12/10/2015 0.00 - 0.20 tFerritin Lvl (ng/mL) 37.0 12/10/2015 11.0 - 307.0 Sincerely, MARY FARR 4 [facility] [place] [address] Electronic Signature Electronically Signed By: MARY FARR MD On: December 13, 2015 This document has images extracted. Source: [facility] POWERCHART Document Id: [id number] Electronically signed by Conversion, [facility] [place] Man [id number] at 01/01/2017 1:11 PM CDT Miscellaneous - Mary Farr M.D. - 12/10/2015 5:16 PM CDT Ambulatory Patient Summary [address] [facility] [place]OTHY [place] [id number] Visit Information Name: AMAIRANI MARTINEZ [facility] Number: [id number] Current Date: 12/10/2015 17:16:18 Physicians [...] if you dont have one. Go to [email or web address] and click on Create Your Account. Then, follow the directions to complete the online form. Youll be asked for your [facility] number which you can find at [...] one or two doses per week. Source: [facility] [employer] Document Id: [id number] Miscellaneous - Mary Farr M.D. - 12/10/2015 5:16 PM CDT Ambulatory Discharge Medication List [address] [id number] Visit Information Name: DONYA, AMAIRANICHESTER MOBLEY [facility] Number: [id number] Visit Date: 12/10/2015 17:16:17 Attending [...] MD Signed On:10-DEC-2015 17:13:52 Additional Information: Source: [facility] [employer] Management[employer]ART Document Id: [id number] Miscellaneous - Amelie Christie L.P.N. - 12/10/2015 4:30 PM CDT Pediatric Fixed Interest Dealer Intake/History Pediatric Fixed Interest Dealer Intake/History Entered On: 12/10/2015 16:34 CDT Performed [...] 12/10/2015 16:30 CDT General Info Languages : Eritrean Is Patient Female and 13-50 no hysterectomy [...] CHRISTIE LPN - 12/10/2015 16:30 CDT [facility] P[facility] Document Id: [id number] CDT!32 documented in this encounter Plan of [...] Mononucleosis Screen, POCT (12/10/2015 5:09 PM CDT) [facility] Method Time Signature Infectious POWERCHART [place] Test, S HXFinal Negative POWERCHART HXFinal Reference: POWERCHART Negative Specimen (Source) Anatomical Collection Method Collection Time Re ceived Time Location / / Volume Laterality Blood 12/10/2015 5:09 PM CDT Mary Farr M.D. LAB POCT ORDERABLES-MANUAL Performing Organization Address City/State/ZIP Code Phon e Number POWERCHART (ABNORMAL) Automated Differential (12/10/2015 5:02 PM CDT) [facility] gist Method Time Signature Absolute 4.58 1.80 [...] X109L Erythrocytes 4.58 4.10 - 5.20 POWERCHART E3621P Hemoglobin 13.6 12.2 - 14.8 POWERCHART GDL [...]
--- OUTSIDE RECORDS SUMMARY | 2022-04-05 15:40 | XMS_ITS | Encounter Summary ---
:2000 Author Organization [facility] Address [address] [place] [address] Care Team Providers Name Role Phone Mary Farr M.D. Primary Care Provider Encounter Details Date Type Department Care Team Description 09/23/2014 Historical Ophthalmology [facility] Gentry Russell M.D. [address] [place], [place] [phone] (Wo rk) 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 [...] Plan: Trial contacts. F/u one week. jayne [facility] Reports - EYECL Id: [id number] Status: Fnl documented in this encounter Plan of Treatment Not on filedocumented as of this encounter Visit Diagnoses Not on filedocumented in this encounter Additional Health Concerns Assessment Noted Time PHQ-9 Depression Total Score: 1 04/22/2014 12:46 PM CD T documented as of this encounter Care Teams [employer] Professional Relationship Specialty Start Date End Date Mary Farr M.D. PCP - General 01/20/17 02/03/17 documented as of this encounter
--- OUTSIDE RECORDS SUMMARY | 2022-04-05 15:40 | XMS_ITS | Encounter Summary ---
:2000 Author Organization [facility] Address [address] [place] [address] Care Team Providers Name Role Phone Unavailable Primary Care Provider Unavailable Encounter Details Date Type Department Care Team Description 09/23/2014 Hospital Encounter [facility]X [facility] Tha Mccrary M.D. [address] [place] [phone] (Wo rk) 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 Tobacco Use Types Packs/Day Years Used Date Smoking Tobacco: Never Assessed Sex Assigned at Date Recorded Not on file documented as of this encounter Miscellaneous Notes Miscellaneous - Gentry Cruz M.D. - 09/23/2014 9:47 AM CST Ambulatory Patient Summary [facility] [address] [place] [id number] Visit Information Name: AMAIRANI MARTINEZ [facility] Number: [id number] Current Date: 09/23/2014 09:47:59 Physicians [...] appointment detail needed. Your Goals/Additional instructions: Source: [facility] POWERI [employer] Document Id: [id number] UNICATION ARTS LECTURER Miscellaneous - Gentry Cruz M.D. - 09/23/2014 9:47 AM CST Ambulatory Discharge Medication List [address] [id number] Visit Information Name: AMAIRANI MARTINEZ [facility] Number: [id number] Visit Date: 09/23/2014 09:47:58 Attending [...] MD Signed On:23-SEP-2014 09:47:56 Additional Information: Source: [facility] POWERCHART Document Id: [id number] UNICATION ARTS LECTURER documented in this encounter Plan of Treatment Not on filedocumented as of this encounter Visit Diagnoses Not on filedocumented in this encounter Additional Health Concerns Assessment Noted Time PHQ-9 Depression Total Score: 1 04/22/2014 12:46 PM CD T documented as of this encounter
--- OUTSIDE RECORDS SUMMARY | 2022-04-05 15:40 | XMS_ITS | Encounter Summary ---
:2000 Author Organization [facility] Address [address] [place] [address] Care Team Providers Name Role Phone Unavailable Primary Care Provider Unavailable Encounter Details Date Type Department Care Team Description 02/15/2012 Hospital Encounter [facility] PEDI[facility]RIC Tom Wellington M.D. [address] [place], [place] [address] (Wo rk) 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 Tobacco [...] Wellington M.D. - 02/15/2012 12:00 AM CDT [id number] CHIEF COMPLAINT/REASON FOR VISIT Ear pain HISTORY [...] WELLINGTON MD On: 02/17/2012 08:47 AM Source: [facility] MHSDOLBEYNONRADSYS Document Id: [id number] documented in this encounter Miscellaneous Notes Miscellaneous - Venus Wellington M.D. - 02/15/2012 10:41 AM CDT Ambulatory Patient Summary [address] [phone] Visit Information Name: AMAIRANI MARTINEZ Current Date: [...] Appointments found Your Goals/Additional instructions: Source: [facility] POWERCHART Document Id: [id number] Miscellaneous - Venus Wellington M.D. - 02/15/2012 10:41 AM CDT Ambulatory Depart Summary [place] [address] [facility] [address] Visit Information Name: AMAIRANI MARTINEZ Visit Date: [...] your provider for clarification. Additional Information: [facility] Document Id: [id number] Miscellaneous - Nikki Pisano - 02/15/2012 10:29 AM CDT Pediatric Counter Pocket Trimmer Intake/History Pediatric Counter Pocket Trimmer Intake/History Entered On: 02/15/2012 10:31 CDT Performed [...] NIKKI UMANA; Reviewed Date: 02/15/201210:28 CDT [facility] Document Id: [id number] documented in this encounter Plan of Treatment Not on filedocumented as of this encounter Visit Diagnoses Not on filedocumented in this encounter
--- OUTSIDE RECORDS SUMMARY | 2022-04-05 15:40 | XMS_ITS | Encounter Summary ---
:2000 Author Organization [facility] Address [address] [place] [address] Care Team Providers Name Role Phone Unavailable Primary Care Provider Unavailable Encounter Details Date Type Department Care Team Description 01/28/2012 Hospital Encounter [facility]ED[facility]IC Tom Peoples M.D. [address] [place], [place] [address] (Wo rk) 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 Tobacco [...] Peoples M.D. - 01/28/2012 12:00 AM CDT [id number] CHIEF COMPLAINT/REASON FOR VISIT 11-year-old well-child visit [...] PEOPLES MD On: 02/03/2012 03:20 PM Source: [facility] MHSDOLBEYNONRADSYS Document Id: [id number] documented in this encounter Procedure Notes Chantell [...] CHANTELL PISANO - 01/28/2012 15:27 CDT Source: [employer] Document Id: [id number] Chantell Pisano - 01/28/2012 3:22 PM CDT Vision Testing Vision Testing Entered On: 01/28/2012 15:23 CDT Performed On: 01/28/2012 15:22 CDT by CHANTELL PISANO Vision Testing Corrective Lenses : Glasses Eye, Right with Correction : 20/25 Eye, Left w/Correction : 20/30 CHANTELL PISANO - 01/28/2012 15:22 CDT Source: [employer] Document Id: [id number] documented in this encounter Miscellaneous Notes Miscellaneous - Venus Peoples M.D. - 01/28/2012 3:48 PM CDT Ambulatory Patient Summary [address] [address] Visit Information Name: AMAIRANI MARTINEZ Current Date: [...] No Appointments found Your Goals/Additional instructions: Source: [facility] POWERCHART Document Id: [id number] Miscellaneous - Venus Peoples M.D. - 01/28/2012 3:48 PM CDT Ambulatory Depart Summary [place] [address] [place] [address] Visit Information Name: AMAIRANI MARTINEZ Visit Date: [...] your provider for clarification. Additional Information: Source: [facility] POWERCHART Document Id: [id number] Miscellaneous - Chantell Pisano - 01/28/2012 3:20 PM CDT Pediatric Aircraft Delivery Checker Intake/History Pediatric Aircraft Delivery Checker Intake/History Entered On: 01/28/2012 15:22 CDT Performed [...] CHANTELL UMANA; Reviewed Date: 01/28/201215:20 CDT Source: [facility] POWERCHART Document Id: [id number] documented in this encounter Plan of Treatment Not on filedocumented as of this encounter Visit Diagnoses Not on filedocumented in this encounter
--- OUTSIDE RECORDS SUMMARY | 2022-04-05 15:40 | XMS_ITS | Encounter Summary ---
:2000 Author Organization [facility] Address [address] [place] [address] Care Team Providers Name Role Phone Unavailable Primary Care Provider Unavailable Encounter Details Date Type Department Care Team Description 07/14/2010 Hospital Encounter [facility]X [facility]EDIATRIC Tom Peoples M.D. [address] [place], [place] [address] (Wo rk) 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 Tobacco [...] (78 lb 14.8 oz) 07/14/2010 8:35 AM CLOTH FINISHING RANGE OPERATOR CHIEF Height - - Body Mass Index - - documented in this encounter Progress Notes Venus Peoples M.D. - 07/14/2010 12:00 AM CST [id number] CHIEF COMPLAINT/ REASON FOR VISIT Ear pain [...] Dr. Andrade. KSL/glt Signed Venus Peoples M.D. Wastewater Treatment Engineer Electronically Signed By:VENUS PEOPLES MD On 07/16/2010 03:34 pm Source: [facility] MHSDOLBEYNONRADSYS Document Id: [id number] H FINISHING RANGE OPERATOR CHIEF documented in this encounter Miscellaneous Notes Miscellaneous - Venus Peoples M.D. - 07/14/2010 8:45 AM CST Ambulatory Patient Summary [address] [address] Visit Information Name: AMAIRANI MARTINEZ Current Date: 07/14/2010 08:45:00 Primary Care Provider: VENUS PEOPLES MD [phone] Your Medications Here is a list of [...] No Appointments found Your Goals/Additional instructions: Source: [facility] POWERCHART Document Id: [id number] Miscellaneous - Venus Peoples M.D. - 07/14/2010 8:45 AM CST Ambulatory Depart Summary [address] [address] Visit Information Name: DONYA AMAIRANICHESTER NICOLELENNIE Current Date: 07/14/2010 08:45:00 Primary Care Provider: VENUS PEOPLES MD [phone] AMAIRANI MARTINEZ has been given the following [...] to the patient and/or family, guardian/caregiver. Source: [facility] POWERCHART Document Id: [id number] Electronically signed by Anastasia [facility] System[facility] Wafer Cleaner [id number] at 01/10/2017 4:58 AM CDT Miscellaneous - Chantell Sandoval - 07/14/2010 8:35 AM CST Pediatric Book Critic Intake/History Pediatric Book Critic Intake/History Entered On: 07/14/2010 8:37 CLOTH FINISHING RANGE OPERATOR CHIEF Performed On: 07/14/2010 8:35 CLOTH FINISHING RANGE OPERATOR CHIEF by CHANTELL UMANA Intake Ambulatory Intake Additional Information: 2 large bullous lesions. no fevers VENUS PEOPLES MD - 07/14/2010 8:44 CLOTH FINISHING RANGE OPERATOR CHIEF Chief Complaint: c/o left ear hurting, x 1 day; cold x 1 week Temperature Core: 37.1C(Converted to: 98.8DegF) Apical Heart Rate: 80/min Respiratory Rate: 22/min Systolic Blood Pressure: 102mmHg Diastolic Blood Pressure: 60mmHg NIBP Mean: 74mmHg BP Location: Right upper extremity Actual Weight: 35.800kg(Converted to: 78lb 15oz) Dosing Weight Clinic: 35.80kg CHANTELL UMANA - 07/14/2010 8:35 CLOTH FINISHING RANGE OPERATOR CHIEF Subjective Pain Symptoms: No CHANTELL UMANA - 07/14/2010 8:35 CLOTH FINISHING RANGE OPERATOR CHIEF Dependent Habits Tobacco Use/Currently Using: No CHANTELL UMANA - 07/14/2010 8:35 CLOTH FINISHING RANGE OPERATOR CHIEF Allergy Allergies (Active) NKA Estimated Onset Date: Unspecified ; Created By: CHANTELL UMANA; Reaction Status: Active ; Category: Drug ; Substance: NKA ; Type: Allergy ; Updated By: CHANTELL UMANA; Reviewed Date: 07/14/20108:34 CLOTH FINISHING RANGE OPERATOR CHIEF Source: [facility] POWERCHART Document Id: [id number] CLOTH FINISHING RANGE OPERATOR CHIEF!3 H FINISHING RANGE OPERATOR CHIEF documented in this encounter Plan of Treatment Not on filedocumented as of this encounter Visit Diagnoses Not on filedocumented in this encounter
--- OUTSIDE RECORDS SUMMARY | 2022-04-05 15:40 | XMS_ITS | Encounter Summary ---
:2000 Author Organization [facility] Address [address] [place] [address] Care Team Providers Name Role Phone Unavailable [...] Provider Ser - 06/05/2010 12:00 AM CDT [id number] IMPRESSION/REPORT/PLAN 1. Resolving perforation of the tympanic [...] II, MD On 06/13/2010 09:48 pm Source: [facility] MHSDOLBEYNONRADSYS Document Id: [id number] documented in this encounter Miscellaneous Notes Miscellaneous - Conversion, Historical Provider Ser - 06/05/2010 10:42 AM CDT Pediatric Financial Analyst Accountant Intake/History Pediatric Financial Analyst Accountant Intake/History Entered On: 06/05/2010 10:43 CDT Performed [...] CHANTELL UMANA; Reviewed Date: 06/05/201010:42 CDT Source: [facility] [employer] Document Id: [id number] CDT!14 documented in this encounter Plan of Treatment Not on filedocumented as of this encounter Visit Diagnoses Not on filedocumented in this encounter
--- OUTSIDE RECORDS SUMMARY | 2022-04-05 15:40 | XMS_ITS | Encounter Summary ---
:2000 Author Organization [facility] Address [address] [place] [address] Care Team Providers Name Role Phone Unavailable Primary Care Provider Unavailable Encounter Details Date Type Department Care Team Description 09/22/2012 Hospital Encounter HX [facility] David Cortez M.D. [address], [place] [phone] (Wo rk) 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 Tobacco Use Types Packs/Day Years Used Date Smoking Tobacco: Never Assessed Sex Assigned at Date Recorded Not on file documented as of this encounter Plan of Treatment Not on filedocumented as of this encounter Visit Diagnoses Not on filedocumented in this encounter
--- OUTSIDE RECORDS SUMMARY | 2022-04-05 15:40 | XMS_ITS | Encounter Summary ---
:2000 Author Organization [facility] Address [address] [place] [address] Care Team Providers Name Role Phone Unavailable Primary Care Provider Unavailable Encounter Details Date Type Department Care Team Description 11/11/2014 Hospital Encounter HX [facility]ILY[facility] Vincenzo Ware P.A.-C. [address] [place] [phone] (Wo rk) 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 Tobacco Use [...] Ware P.A.-C. - 11/11/2014 3:13 PM CDT [id number] CHIEF COMPLAINT/REASON FOR VISIT Sports history and [...] have her follow up as needed. Kyle Ware PA-C/ladan Electronically Signed By: KYLE WARE PA-C On: 11/13/2014 10:23 AM Source: [facility] MHSDOLBEYNONRADSYS Document Id: [id number] documented in this encounter Miscellaneous Notes Miscellaneous - Kyle Ware P.A.-C. - 11/11/2014 5:17 PM CDT Ambulatory Patient Summary [address] [id number] Visit Information Name: AMAIRANI MARTINEZ [facility] Number: [id number] Current Date: 11/11/2014 17:17:08 Physicians [...] appointment detail needed. Your Goals/Additional instructions: Source: [facility] POWERCHART Document Id: [id number] Miscellaneous - Kyle Ware P.A.-C. - 11/11/2014 5:17 PM CDT Ambulatory Discharge Medication List [address] [id number] Visit Information Name: AMAIRANI MARTINEZ [facility] Number: [id number] Visit Date: 11/11/2014 17:17:07 Attending [...] PA-C Signed On:11-NOV-2014 17:17:04 Additional Information: Source: [facility] POWERCHART Document Id: [id number] Miscellaneous - Flores Ngo L.P.N. - 11/11/2014 3:34 PM CDT Pediatric Overnight Cashier Intake/History Pediatric Overnight Cashier Intake/History Entered On: 11/11/2014 15:39 CDT Performed [...] Given By : Patient, Mother Languages : Latvian Is Patient Female and 13-50 no hysterectomy [...] FLORES NGO - 11/11/2014 15:34 CDT Source: [facility] [employer] Document Id: [id number] CDT!32 documented in this encounter Plan of Treatment Not on filedocumented as of this encounter Visit Diagnoses Not on filedocumented in this encounter Additional Health Concerns Assessment Noted Time PHQ-9 Depression Total Score: 1 04/22/2014 12:46 PM CD T documented as of this encounter
--- OUTSIDE RECORDS SUMMARY | 2022-04-05 15:40 | XMS_ITS | Encounter Summary ---
:2000 Author Organization [facility] Address [address] [place] [address] Care Team Providers Name Role Phone Unavailable Primary Care Provider Unavailable Encounter Details Date Type Department Care Team Description 06/18/2010 Hospital Encounter [facility] AUDIOLOGY Mojgan Felix am, Au.D. 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 Tobacco Use Types Packs/Day Years Used Date Smoking Tobacco: Never Assessed Sex Assigned at Date Recorded Not on file documented as of this encounter Progress Notes Stas Felix - 06/18/2010 12:00 AM CST [id number] IMPRESSION / REPORT / PLAN She is following with Dr. Andrade. CHIEF COMPLAINT / REASON FOR VISIT Seen for an audiologic evaluation following tube removal. PHYSICAL EXAM AREA EXAM TEXT ENT Tympanograms are normal in both ears. Puretone testing results are consistent with normal hearing bilaterally. MOA/sks Signed Amari Forrest. Audiology Electronically Signed By:STAS FELIX On 06/22/2010 01:08 PM Source: [facility] MHSDOLBEYNONRADSYS Document Id: [id number] RANS' COORDINATOR documented in this encounter Plan of Treatment Not on filedocumented as of this encounter Visit Diagnoses Not on filedocumented in this encounter
--- OUTSIDE RECORDS SUMMARY | 2022-04-05 15:40 | XMS_ITS | Encounter Summary ---
:2000 Author Organization [facility] Address [address] [place] [address] Care Team Providers Name Role Phone Unavailable Primary Care Provider Unavailable Encounter Details Date Type Department Care Team Description 09/05/[address] [facility] Sa manolo Farr M.D. [phone] (Wo rk) 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 Tobacco Use Types [...] (130 lb 1.1 oz) 09/05/2013 8:24 AM RAW SILK GRADER Height - - Body Mass Index - - documented in this encounter Progress Notes Mary Farr M.D. - 09/05/2013 8:21 AM CST [id number] CHIEF COMPLAINT/REASON FOR VISIT Sore throat, cough, [...] test negative. IMPRESSION/REPORT/PLAN Viral illness. Last fever warning analyst was 5 hours prior to the visit. May use ibuprofen or acetaminophenfor fever and discomfort. Best not to use true aspirin. The illness should run its course. Mary Farr M.D./ayaan Electronically Signed By: MARY FARR MD On: 09/06/2013 11:02 AM Source: [facility] MHSDOLBEYNONRADSYS Document Id: [id number] SILK GRADER documented in this encounter Miscellaneous Notes Miscellaneous - Mary Farr M.D. - 09/05/2013 10:18 AM CST Ambulatory Patient Summary [address] [address] Visit Information Name: AMAIRANI MARTINEZ [facility] Number: [id number] Current Date: 09/05/2013 10:18:56 Physicians [...] appointment detail needed. Your Goals/Additional instructions: Source: [facility] POWERCHART Document Id: [id number] SILK GRADER Miscellaneous - Mary Farr M.D. - 09/05/2013 10:18 AM CST Ambulatory Depart Summary [address] [address] Visit Information Name: AMAIRANI MARTINEZ [facility] Number: [id number] Visit Date: 09/05/2013 10:18:55 Attending [...] in case of emergency. Additional Information: Source: [facility] POWERCHART Document Id: [id number] SILK GRADER Kya - Mary Farr M.D. - 09/05/2013 8:52 AM CST School Excuse 05 September 2013 AMAIRANI MARTINEZ [address] [facility] [id number] Dear AMAIRANI MARTINEZ, You were examined in [...] for 24 hours. Sincerely, MARY FARR [address] [place] [address] Electronic Signature Electronically Signed By: MARY FARR MD On: 05 September 2013 This document has images extracted. Source: [facility] POWERCHART Document Id: [id number] Kya - Amelie Christie L.P.NRodney - 09/05/2013 8:24 AM CST Pediatric Manager [place] Intake/History Pediatric Manager China Intake/History Entered On: 09/05/2013 8:28 RAW SILK GRADER Performed On: 09/05/2013 8:24 RAW SILK GRADER by AMELIE CHRISTIE Intake Chief Complaint : [...] kg PRATIK, AMELIE TRUJILLO - 09/05/2013 8:24 RAW SILK GRADER General Info Languages : Croatian PRATIK AMELIE RONNIE - 09/05/2013 8:24 RAW SILK GRADER Subjective Pain Symptoms : No PRATIKAMELIE RONNIE - 09/05/2013 8:24 RAW SILK GRADER Dependent Habits Tobacco Use/Currently Using : No Exposure to Tobacco Smoke : Care provider denies smoking in home Smoking Status : Never smoker PRATIKAMELIE - 09/05/2013 8:24 RAW SILK GRADER Source: [facility] POWERCHART Document Id: [id number] RAW SILK GRADER!23 SILK GRADER documented in this encounter Plan of Treatment Not on filedocumented as of this encounter Procedures Procedure Name Priority Date/Time Associated Diagnosis Comme nts RAPID STREP A Routine 09/05/2013 8:31 AM Results for this SCREEN RAW SILK GRADER procedure are i n the results section. RAPID STREP A Routine 09/05/2013 8:31 AM Results for this SCREEN RAW SILK GRADER procedure are i n the results section. documented in this encounter Results Rapid Strep A Screen (09/05/2013 8:31 AM RAW SILK GRADER) [facility] gist Method Time Signature HXRapid Strep POWERCHART Confirmation HXFinal Negative POWERCHART Specimen Anatomical Collection Method Collection Time Receive d Time (Source) Location / / Volume Laterality Throat 09/05/2013 8:31 AM 4 8:31 RAW SILK GRADER AM RAW SILK GRADER Mary Farr M.D. LAB MICROBIOLOGY - GENERAL O RDERABLES Performing Organization Address City/State/ZIP Code Phon e Number POWERCHART Rapid Strep A Screen (09/05/2013 8:31 AM RAW SILK GRADER) [facility] gist Method Time Signature HXStrep A POWERCHART Screen Rapid HXFinal Negative for POWERCHART Strep Group A by rapid screen. HXFinal Culture POWERCHART confirmation to follow. Specimen (Source) Anatomical Collection Method Collection Time Re ceived Time Location / / Volume Laterality Throat 09/05/2013 8:31 AM RAW SILK GRADER Mary Farr M.D. LAB MICROBIOLOGY - GENERAL O RDERABLES Performing Organization Address City/State/ZIP Code Phon e Number POWERCHART documented in this encounter Visit Diagnoses Not on filedocumented in this encounter
--- OUTSIDE RECORDS SUMMARY | 2022-04-05 15:40 | XMS_ITS | Encounter Summary ---
:2000 Author Organization [facility] Address [address] [place] [address] Care Team Providers Name Role Phone Mary Farr M.D. Primary Care Provider Encounter Details Date Type Department Care Team Description 09/04/2014 Historical Ophthalmology [facility] Gentry Russell M.D. [address] [place], [place] [phone] (Wo rk) 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 [...] both eyes. CDM Reports - EYEGEN Id: [id number] Status: Fnl documented in this encounter Plan of Treatment Not on filedocumented as of this encounter Visit Diagnoses Not on filedocumented in this encounter Additional Health Concerns Assessment Noted Time PHQ-9 Depression Total Score: 1 04/22/2014 12:46 PM CD T documented as of this encounter Care Teams Exchange Teller Relationship Specialty Start Date End Date Mary Farr M.D. PCP - General 01/20/17 02/03/17 documented as of this encounter
--- OUTSIDE RECORDS SUMMARY | 2022-04-05 15:40 | XMS_ITS | Encounter Summary ---
:2000 Author Organization [facility] Address [address] [place] [address] Care Team Providers Name Role Phone Unavailable Primary Care Provider Unavailable Encounter Details Date Type Department Care Team Description 04/22/2014 Hospital Encounter HX [facility] Sa manolo Farr M.D. [phone] (Wo rk) 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 Tobacco Use Types [...] Farr M.D. - 04/22/2014 7:43 AM CDT [id number] CHIEF COMPLAINT/REASON FOR VISIT This 13-1/2-year-old girl is seen for a well-child check. 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 Her academic performance is appropriate, according to [...] has some facial acne. She has an zyjx-ily-kjknlli benzoyl peroxide product for that and is [...] all four extremities. Babinski response negative bilaterally. Gforfg-ry-tnvo testing normal. Romberg negative. Normal tone. IMPRESSION/REPORT/PLAN [...] FARR MD On: 04/23/2014 12:48 PM Source: [facility] MHSDOLBEYNONRADSYS Document Id: [id number] documented in this encounter Miscellaneous Notes Miscellaneous [...] FARR MD - 05/04/2014 12:46 CDT Source: [employer] Document Id: [id number] CDT!15 Loricellaneous - Mary Farr M.D. - 04/22/2014 9:46 AM CDT Ambulatory Patient Summary [address] [id number] Visit Information Name: DONYA AMAIRANICHESTER MOBLEY [facility] Number: [id number] Current Date: 04/22/2014 09:46:04 Physicians [...] appointment detail needed. Your Goals/Additional instructions: Source: [facility] POWERCHART Document Id: [id number] Miscellaneous - Mary Farr M.D. - 04/22/2014 9:46 AM CDT Ambulatory Discharge Medication List [address] [id number] Visit Information Name: AMAIRANI MARTINEZ [facility] Number: [id number] Visit Date: 04/22/2014 09:46:03 Attending [...] MD Signed On:22-APR-2014 09:45:57 Additional Information: Source: [facility] POWERCHART Document Id: [id number] Miscellaneous - Vy Maya L.P.N. - 04/22/2014 8:03 AM CDT Pediatric Apartment Rental Clerk Intake/History Pediatric Apartment Rental Clerk Intake/History Entered On: 04/22/2014 8:06 CDT Performed [...] Information Given By : Mother Languages : Turkish Is Patient Female and 13-50 no hysterectomy [...] MAYA LPN - 04/22/2014 8:03 CDT Source: [facility] [employer] Document Id: [id number] CDT!31 documented in this encounter Plan of Treatment Not on filedocumented as of this encounter Visit Diagnoses Not on filedocumented in this encounter Additional Health Concerns Assessment Noted Time PHQ-9 Depression Total Score: 1 04/22/2014 12:46 PM CD T documented as of this encounter
--- OUTSIDE RECORDS SUMMARY | 2022-04-05 15:40 | XMS_ITS | Encounter Summary ---
:2000 Author Organization [facility] Address [address] [place] [address] Care Team Providers Name Role Phone Unavailable Primary Care Provider Unavailable Encounter Details Date Type Department Care Team Description 01/09/2014 Hospital Encounter [facility]X [facility] Fred Hill M.D. [address] [place] [address] (Wo rk) 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 Tobacco [...] Hill M.D. - 01/09/2014 6:35 PM CDT [id number] CHIEF COMPLAINT/REASON FOR VISIT A 13-year-old female [...] HILL MD On: 01/11/2014 11:26 AM Source: [facility] MHSDOLBEYNONRADSYS Document Id: [id number] documented in this encounter Miscellaneous Notes Miscellaneous - Bean Kohler L.PRodneyNRodney - 01/09/2014 7:09 PM CDT Pediatric Paper Control Clerk Intake/History Pediatric Paper Control Clerk Intake/History Entered On: 01/09/2014 19:13 CDT Performed [...] Given By : Patient, Father Languages : Ivorian BEAN KOHLER - 01/09/2014 19:09 CDT Subjective [...] BEAN KOHLER - 01/09/2014 19:09 CDT Source: [facility] POWERCHART Document Id: [id number] CDT!29 documented in this encounter Plan of Treatment Not on filedocumented as of this encounter Visit Diagnoses Not on filedocumented in this encounter
--- OUTSIDE RECORDS SUMMARY | 2022-04-05 15:40 | XMS_ITS | Encounter Summary ---
:2000 Author Organization [facility] Address [address] [place] [address] Care Team Providers Name Role Phone Unavailable Primary Care Provider Unavailable Encounter Details Date Type Department Care Team Description 11/15/2013 Hospital Encounter HX [facility] M.[facility]. [address] [place], [place] [phone] (Wo rk) 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 Tobacco Use Types Packs/Day Years Used Date Smoking Tobacco: Never Assessed Sex Assigned at Date Recorded Not on file documented as of this encounter Plan of Treatment Not on filedocumented as of this encounter Visit Diagnoses Not on filedocumented in this encounter
--- OUTSIDE RECORDS SUMMARY | 2022-04-05 15:40 | XMS_ITS | Encounter Summary ---
:2000 Author Organization [facility] Address [address] [place] [address] Care Team Providers Name Role Phone Unavailable Primary Care Provider Unavailable Encounter Details Date Type Department Care Team Description 11/14/2013 Hospital Encounter HX [facility] Tha Hanley M.D. [address] [place], [place] [phone] (Wo rk) 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 [...] Right Eye Manifest Grid Date : 09/22/2012 ADVERTISING TEACHER 11/14/2013 CDT Performed by : Anni Sphere : -3.50 -3.75 Visual Acuity Distance : 20/20 20/20 Visual Acuity Near : 20/20 WINDY UGTIERREZ RIKKI - 11/14/2013 16:22 CDT BILLY GUTIERREZYSTAL RIKKI - 11/14/2013 16:22 CDT Left Eye Manifest Grid Date : 09/22/2012 ADVERTISING TEACHER 11/14/2013 CDT Performed by : Anni Sphere [...] Child Mix Eye Drop Time : 16:27 ADVERTISING TEACHER Child Mix Eye Drop Comment : vco WINDY GUTIERREZ RIKKI - 11/14/2013 16:22 CDT Source: [facility] POWERCHART Document Id: [id number] CDT!41 documented in this encounter H&P Notes Gentry Cruz M.D. - 11/14/2013 4:09 PM CDT [id number] CHIEF COMPLAINT/REASON FOR VISIT Routine ophthalmic exam. IMPRESSION/REPORT/PLAN Increased myopia, both eyes. PLAN: Update glasses prescription. Follow up in 1 year. Gentry Cruz M.D./ladan Electronically Signed By: GENTRY CRUZ MD On: 11/15/2013 08:00 AM Source: [facility] MHSDOLBEYNONRADSYS Document Id: [id number] documented in this encounter Miscellaneous Notes Miscellaneous - Gentry Cruz M.D. - 11/14/2013 4:45 PM CDT Ambulatory Patient Summary [facility] [address] [place] [id number] Visit Information Name: AMAIRANI MARTINEZ [facility] Number: [id number] Current Date: 11/14/2013 16:45:19 Physicians [...] appointment detail needed. Your Goals/Additional instructions: Source: [facility] POWERCHART Document Id: [id number] Miscellaneous - Gentry Cruz M.D. - 11/14/2013 4:45 PM CDT Ambulatory Discharge Medication List [facility] [address] [place], [place] [address], [place] [phone] Visit Information Name: AMAIRANI MARTINEZ [facility] Number: [id number] Visit Date: 11/14/2013 16:45:18 Attending [...] MD Signed On:14-NOV-2013 16:45:17 Additional Information: Source: [facility] POWERCHART Document Id: [id number] documented in this encounter Plan of Treatment Not on filedocumented as of this encounter Visit Diagnoses Not on filedocumented in this encounter
--- OUTSIDE RECORDS SUMMARY | 2022-04-05 15:40 | XMS_ITS | Encounter Summary ---
:2000 Author Organization [facility] Address [address] [place] [address] Care Team Providers Name Role Phone Unavailable Primary Care Provider Unavailable Encounter Details Date Type Department Care Team Description 09/04/2014 Hospital Encounter HX [facility] Tha Mccrary M.D. [address] [place], [place] [phone] (Wo rk) 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 Tobacco Use Types Packs/Day Years Used Date Smoking Tobacco: Never Assessed Sex Assigned at Date Recorded Not on file documented as of this encounter Progress Notes Gentry Cruz M.D. - 09/04/2014 3:46 PM CST [id number] The documentation for this visit is available in Synthesis IMPRESSION/REPORT/PLAN #1 Myopia both eyes. Increased from previous exam. Plan: Update glasses. F/u six months. INT Gentry Cruz M.D./tarun Electronically Signed By: GENTRY CRUZ MD On: 09/10/2014 08:04 AM Source: [facility] MHSDOLBEYNONRADSYS Document Id: [id number] ORK SYSTEMS OPERATOR documented in this encounter Miscellaneous Notes Miscellaneous - Gentry Cruz M.D. - 09/04/2014 4:28 PM CST Ambulatory Patient Summary [place] [id number] Visit Information Name: AMAIRANI MARTINEZ [facility] Number: [id number] Current Date: 09/04/2014 16:28:55 [...] appointment detail needed. Your Goals/Additional instructions: Source: [facility] POWERCHART Document Id: [id number] ORK SYSTEMS OPERATOR Miscellaneous - Gentry Cruz M.D. - 09/04/2014 4:28 PM CST Ambulatory Discharge Medication List [facility] [address] [place] [id number] Visit Information Name: AMAIRANI MARTINEZ [facility] Number: [id number] Visit Date: 09/04/2014 16:28:54 [...] MD Signed On:04-SEP-2014 16:28:53 Additional Information: Source: [facility] POWERCHART Document Id: [id number] ORK SYSTEMS OPERATOR documented in this encounter Plan of Treatment Not on filedocumented as of this encounter Visit Diagnoses Not on filedocumented in this encounter Additional Health Concerns Assessment Noted Time PHQ-9 Depression Total Score: 1 04/22/2014 12:46 PM CD T documented as of this encounter
--- OUTSIDE RECORDS SUMMARY | 2022-04-05 15:40 | XMS_ITS | Encounter Summary ---
:2000 Author Organization [facility] Address [address] [place] [address] Care Team Providers Name Role Phone Unavailable Primary Care Provider Unavailable Encounter Details Date Type Department Care Team Description 03/15/2013 Hospital Encounter [facility] Tom Peoples M.D. [address] [place], [place] [address] (Wo rk) 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 Tobacco [...] Peoples M.D. - 03/15/2013 12:34 PM CDT [id number] CHIEF COMPLAINT/REASON FOR VISIT A 12-year-old well-child [...] annual eye exams for her. Venus Peoples M.D./karthik Electronically Signed By: VENUS PEOPLES MD On: 03/19/2013 04:50 PM Source: [facility] MHSDOLBEYNONRADSYS Document Id: [id number] documented in this encounter Procedure Notes Conversion, Historical Provider Ser - 03/15/2013 1:29 PM CDT Vision Testing Vision Testing Entered On: 03/15/2013 13:29 CDT Performed On: 03/15/2013 13:29 CDT by JENN BOLIVAR LPN Vision Testing Corrective Lenses : Glasses Color Vision : Pass Eye, Right with Correction : 20/20 Eye, Left w/Correction : 20/25 JENN BOLIVAR LPN - 03/15/2013 13:29 CDT Source: [facility] [employer] Document Id: [id number] CDT!6 Conversion, Historical Provider Ser - 03/15/2013 [...] BOLIVAR LPN - 03/15/2013 13:29 CDT Source: [facility] [employer] Document Id: [id number] CDT!44 documented in this encounter Miscellaneous Notes Miscellaneous - Venus Peoples M.D. - 03/15/2013 1:49 PM CDT Ambulatory Depart Summary [address] [address] Visit Information Name: AMAIRANI MARTINEZ [facility] Number: [id number] Visit Date: 03/15/2013 13:49:04 Attending [...] your provider for clarification. Additional Information: Source: [employer] Document Id: [id number] Miscellaneous - Venus Peoples M.D. - 03/15/2013 1:49 PM CDT Ambulatory Patient Summary [address] [address] Visit Information Name: AMAIRANI MARTINEZ [facility] Number: [id number] Current Date: 03/15/2013 13:49:04 Physicians [...] No Appointments found Your Goals/Additional instructions: Source: [employer] Document Id: [id number] Miscellaneous - Conversion, Historical Provider Ser - 03/15/2013 1:14 PM CDT Pediatric Oil Scout Intake/History Pediatric Oil Scout Intake/History Entered On: 03/15/2013 13:15 CDT Performed [...] Info Preferred Name : Amairani Languages : German JENN BOLIVAR LPN - 03/15/2013 13:14 CDT Subjective Pain Symptoms : No JENN BOLIVAR LPN - 03/15/2013 13:14 CDT Dependent Habits Tobacco Use/Currently Using : No Exposure to Tobacco Smoke : Care provider denies smoking in home Smoking Status : Never smoker JENN BOLIVAR LPN - 03/15/2013 13:14 CDT Source: [facility] POWERCHART Document Id: [id number] CDT!26 documented in this encounter Plan of Treatment Not on filedocumented as of this encounter Visit Diagnoses Not on filedocumented in this encounter
--- OUTSIDE RECORDS SUMMARY | 2022-04-05 15:40 | XMS_ITS | Encounter Summary ---
:2000 Author Organization [facility] Address [address] [place] [address] Care Team Providers Name Role Phone Unavailable [...] (80 lb 0.4 oz) 06/18/2010 3:28 PM HORSE WRANGLER Height - - Body Mass Index - - documented in this encounter Progress Notes Conversion, Historical Provider Ser - 06/18/2010 12:00 AM CST [id number] IMPRESSION/REPORT/PLAN 1. Resolving otitis media of the [...] II, M.D. ENT CC: Amanda Peoples M.D. Optics Test Technician [address] [place] [id number] Electronically Signed By:JORDYN KNIGHT II, MD On 06/23/2010 02:53 pm Modified by:JORDYN KNIGHT II, MD On 06/23/2010 02:53 pm Source: [facility] MHSDOLBEYNONRADSYS Document Id: [id number] documented in this encounter Miscellaneous Notes Miscellaneous - Conversion, Historical Provider Ser - 06/18/2010 3:28 PM HORSE WRANGLER Pediatric Catering Assistant Intake/History Pediatric Catering Assistant Intake/History Entered On: 06/18/2010 15:29 HORSE WRANGLER Performed On: 06/18/2010 15:28 HORSE WRANGLER by MIESHA ALLISON LPN Intake Chief Complaint: Post-op Temperature Core: 36.4C(Converted to: 97.5DegF) (LOW) Systolic Blood Pressure: 110mmHg Diastolic Blood Pressure: 60mmHg NIBP Mean: 77mmHg BP Location: Right upper extremity Actual Weight: 36.300kg(Converted to: 80lb 0oz) Dosing Weight Clinic: 36.30kg MIESHA ALLISON LPN - 06/18/2010 15:28 HORSE WRANGLER Subjective Pain Symptoms: No MIESHA ALLISON LPN - 06/18/2010 15:28 HORSE WRANGLER Dependent Habits Tobacco Use/Currently Using: No MIESHA ALLISON LPN - 06/18/2010 15:28 HORSE WRANGLER Allergy Allergies (Active) NKA Estimated Onset Date: Unspecified ; Created By: CHANTELL UMANA; Reaction Status: Active ; Category: Drug ; Substance: NKA ; Type: Allergy ; Updated By: CHANTELL UMANA; Reviewed Date: 06/18/201015:27 HORSE WRANGLER Source: [facility] POWERCHART Document Id: [id number] HORSE WRANGLER!14 documented in this encounter Plan of Treatment Not on filedocumented as of this encounter Visit Diagnoses Not on filedocumented in this encounter
--- OUTSIDE RECORDS SUMMARY | 2022-04-05 15:41 | XMS_ITS | Encounter Summary ---
:2000 Author Organization [facility] Address [address] [place] [address] Care Team Providers Name Role Phone Unavailable Primary Care Provider Unavailable Encounter Details Date Type Department Care Team Description 05/14/2010 Hospital Encounter HX [facility] Mojgan Felix am, Au.D. 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 Tobacco Use Types Packs/Day Years Used Date Smoking Tobacco: Never Assessed Sex Assigned at Date Recorded Not on file documented as of this encounter Progress Notes Stas Felix - 05/14/2010 12:00 AM CDT [id number] IMPRESSION / REPORT / PLAN She is [...] By:STAS FELIX On 05/18/2010 05:05 PM Source: [facility] MHSDOLBEYNONRADSYS Document Id: [id number] documented in this encounter Plan of Treatment Not on filedocumented as of this encounter Visit Diagnoses Not on filedocumented in this encounter
--- OUTSIDE RECORDS SUMMARY | 2022-04-05 15:41 | XMS_ITS | Encounter Summary ---
:2000 Author Organization [facility] Address [address] [place] [address] Care Team Providers Name Role Phone Unavailable Primary Care Provider Unavailable Encounter Details Date Type Department Care Team Description 05/21/2010 Hospital Encounter [facility]X [facility] Tom Peoples M.D. [address] [place], [place] [address] (Wo rk) 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 Tobacco [...] Peoples M.D. - 05/21/2010 12:00 AM CDT [id number] CHIEF COMPLAINT/ REASON FOR VISIT Preanesthesia medical [...] surgery date. KSL/glt Signed Venus Peoples M.D. Welding Machine Operator Submerged Arc Electronically Signed By:VENUS PEOPLES MD On 05/26/2010 02:41 pm Source: [facility] MHSDOLBEYNONRADSYS Document Id: [id number] documented in this encounter Miscellaneous Notes Miscellaneous - Chantell Sandoval - 05/21/2010 3:51 PM CDT Pediatric Ordering Machine Operator Intake/History Pediatric Ordering Machine Operator Intake/History Entered On: 05/21/2010 15:52 CDT Performed [...] CHANTELL UMANA; Reviewed Date: 05/14/201014:19 CDT Source: [facility] [employer] Document Id: [id number] CDT!20 documented in this encounter Plan of Treatment Not on filedocumented as of this encounter Visit Diagnoses Not on filedocumented in this encounter
--- OUTSIDE RECORDS SUMMARY | 2022-04-05 15:41 | XMS_ITS | Encounter Summary ---
:2000 Author Organization [facility] Address [address] [place] [address] Care Team Providers Name Role Phone Unavailable [...] Provider Ser - 05/14/2010 12:00 AM CDT [id number] IMPRESSION/REPORT/PLAN 1. Chronic suppurative otitis media of [...] of the hearing and gross clinical speech office coordinator receptionist thresholds are at least close to being [...] limits. The tongue is within normal limits. [place]'s and Stensen's ducts are within normal limits [...] II, M.D. ENT CC: Amanda Peoples M.D. Passenger Car Inspector [address] [place] [address] Electronically Signed By:JORDYN KNIGHT On 05/19/2010 11:26 am Modified by:JORYDN KNIGHT On 05/19/2010 11:26 am Source: [facility] MHSDOLBEYNONRADSYS Document Id: [id number] documented in this encounter Nursing Notes Conversion, Historical Provider Ser - 05/19/2010 10:57 AM CDT ENT Surgery Examine and clean ears, and removal (L) ear tube scheduled for 05/28/10 at [facility] with Dr. Knight. Insurance referral completed. No prior authorization is required per [facility] policy. Electronically Signed By:MIESHA ALLISON LPN On 05/19/2010 10:59 am Source: [facility] [employer] Document Id: [id number] documented in this encounter Miscellaneous Notes Miscellaneous - Conversion, Historical Provider Ser - 05/14/2010 2:20 PM CDT Pediatric Learning And Development Consultant Intake/History Pediatric Learning And Development Consultant Intake/History Entered On: 05/14/2010 14:22 CDT Performed [...] CHANTELL UMANA; Reviewed Date: 05/14/201014:19 CDT Source: [facility] [employer] Document Id: [id number] CDT!14 documented in this encounter Plan of Treatment Not on filedocumented as of this encounter Visit Diagnoses Not on filedocumented in this encounter
--- OUTSIDE RECORDS SUMMARY | 2022-04-05 15:41 | XMS_ITS | Encounter Summary ---
:2000 Author Organization [facility] Address [address] [place] [address] Care Team Providers Name Role Phone Unavailable Primary Care Provider Unavailable Encounter Details Date Type Department Care Team Description 04/10/2010 Hospital Encounter HX [facility] Tom Peoples M.D. [address] [place], [place] [address] (Wo rk) 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 Tobacco [...] Peoples M.D. - 04/10/2010 12:00 AM CDT [id number] CHIEF COMPLAINT/REASON FOR VISIT Left ear pain. [...] her Claritin. KSL/glt Signed Venus Peoples M.D. Automobile Contract Clerk Electronically Signed By:VENUS PEOPLES MD On 04/17/2010 02:47 pm Source: [facility] MHSDOLBEYNONRADSYS Document Id: [id number] documented in this encounter Miscellaneous Notes Miscellaneous - Larish, Lacy M - 04/10/2010 4:12 PM CDT Pediatric Park Warden Intake/History Pediatric Park Warden Intake/History Entered On: 04/10/2010 16:12 CDT Performed [...] CHANTELL UMANA; Reviewed Date: 04/10/201016:11 CDT Source: [facility] POWERCHART Document Id: [id number] CDT!3 Miscellaneous - Chantell Sandoval - 03/03/2009 4:32 PM CDT Pediatric Growth Pediatric Growth Entered On: 04/10/2010 16:33 CDT Performed On: 03/03/2009 16:32 CDT by CHANTELL UMANA Pediatric Growth Height: 132.50cm(Converted to: 4ft 4in, 4.35ft, 52.17in) Actual Weight: 29.100kg(Converted to: 64lb 2oz, 64.155lb, 1,026.472oz) Body Mass Index: 17kg/m2 CHANTELL UMANA - 04/10/2010 16:32 CDT Source: [employer] Document Id: [id number] CDT!5 Miscellaneous - Chantell Sandoval - 03/25/2008 4:33 PM CDT Pediatric Growth Pediatric Growth Entered On: 04/10/2010 16:33 CDT Performed On: 03/25/2008 16:33 CDT by CHANTELL UMANA Pediatric Growth Height: 126.50cm(Converted to: 4ft 2in, 4.15ft, 49.80in) Actual Weight: 25.800kg(Converted to: 56lb 14oz, 56.879lb, 910.068oz) Body Mass Index: 16kg/m2 CHANTELL UMANA - 04/10/2010 16:33 CDT Source: [employer] Document Id: [id number] CDT!5 documented in this encounter Plan of Treatment Not on filedocumented as of this encounter Visit Diagnoses Not on filedocumented in this encounter
--- OUTSIDE RECORDS SUMMARY | 2022-04-05 15:41 | XMS_ITS | Encounter Summary ---
:2000 Author Organization [facility] Address [address] [place] [address] Care Team Providers Name Role Phone Unavailable [...] 05/22/2010 11:24 AM C DT Growth Chart: [facility] (Girls, 2-20 Years) documented in this encounter Progress Notes Conversion, Historical Provider Ser - 05/22/2010 12:00 AM CDT [id number] IMPRESSION/REPORT/PLAN 1. Chronic otitis media. 2. Chronic [...] limits. The tongue is within normal limits. [place]'s and Stensen's ducts are within normal limits [...] by:JORDYN KNIGHT On 05/26/2010 02:00 am Source: [facility] MHSDOLBEYNONRADSYS Document Id: [id number] documented in this encounter Miscellaneous Notes Miscellaneous - Conversion, Historical Provider Ser - 05/22/2010 11:24 AM CDT Adult Senior Functional Analyst Intake/History Adult Senior Functional Analyst Intake/History Entered On: 05/22/2010 11:33 CDT Performed [...] Habits Tobacco Use/Currently Using: Terese MIESHA ALLISON [facility] - 05/22/2010 11:24 CDT Allergies Allergies (Active) NKA Estimated Onset Date: Unspecified ; Created By: CHANTELL UMANA; Reaction Status: Active ; Category: Drug ; Substance: NKA ; Type: Allergy ; Updated By: CHANTELL UMANA; Reviewed Date: 05/22/201011:21 CDT Source: [facility] Document Id: [id number] CDT!14 documented in this encounter Plan of Treatment Not on filedocumented as of this encounter Visit Diagnoses Not on filedocumented in this encounter
--- OUTSIDE RECORDS SUMMARY | 2022-04-05 15:41 | XMS_ITS | Encounter Summary ---
:2000 Author Organization [facility] Address [address] [place] [address] Care Team Providers Name Role Phone Unavailable Primary Care Provider Unavailable Encounter Details Date Type Department Care Team Description 04/21/2010 Hospital Encounter HX [facility] Tom Peoples M.D. [address] [place], [place] [address] (Wo rk) 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 Tobacco [...] Peoples M.D. - 04/21/2010 12:00 AM CDT [id number] CHIEF COMPLAINT/REASON FOR VISIT Persistent ear infection. [...] prescribed Claritin, but insurance does not cover quia-npz-rublwaz medications and they have not been able to get that yet. CURRENT MEDICATIONS Post-visit Medication Reconciliation 1. Cefdinir 250 mg per 5 ml, 10 ml p.o. once daily x10 days. 2. Lovn-wcg-npwqfcx Loratadine or Cetirizine p.o. p.r.n. allergies. ALLERGIES [...] otic drops. KSL/glt Signed Venus Peoples M.D. Digital Learning Platforms Manager Electronically Signed By:VENUS PEOPLES MD On 04/27/2010 11:37 am Source: [facility] MHSDOLBEYNONRADSYS Document Id: [id number] documented in this encounter Miscellaneous Notes Miscellaneous - Chantell Sandoval - 04/21/2010 3:33 PM CDT Pediatric Charge Account Clerk Intake/History Pediatric Charge Account Clerk Intake/History Entered On: 04/21/2010 15:36 CDT Performed [...] CHANTELL UMANA; Reviewed Date: 04/21/201015:33 CDT Source: [facility] Document Id: [id number] CDT!16 documented in this encounter Plan of Treatment Not on filedocumented as of this encounter Visit Diagnoses Not on filedocumented in this encounter
--- OUTSIDE RECORDS SUMMARY | 2022-04-05 15:41 | XMS_ITS | Encounter Summary ---
:2000 Author Organization [facility] Address [address] [place] [address] Care Team Providers Name Role Phone Unavailable Primary Care Provider Unavailable Encounter Details Date Type Department Care Team Description 05/04/2010 Hospital Encounter HX [facility] Tom Peoples M.D. [address] [employer], [place] [address] (Wo rk) 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 Tobacco [...] Peoples M.D. - 05/04/2010 12:00 AM CDT [id number] CHIEF COMPLAINT/REASON FOR VISIT Continued ear drainage. [...] for 05/14/2010. KSL/sks Signed Venus Peoples M.D. Shuttler Electronically Signed By:VENUS PEOPLES MD On 05/07/2010 04:01 pm Source: [facility] MHSDOLBEYNONRADSYS Document Id: [id number] documented in this encounter Miscellaneous Notes Miscellaneous - Chantell Sandoval - 05/04/2010 10:42 AM CDT Pediatric Installation Drafter Intake/History Pediatric Installation Drafter Intake/History Entered On: 05/04/2010 10:44 CDT Performed [...] CHANTELL UMANA; Reviewed Date: 04/21/201015:33 CDT Source: [employer] Document Id: [id number] CDT!16 documented in this encounter Plan of Treatment Not on filedocumented as of this encounter Visit Diagnoses Not on filedocumented in this encounter
== END 2022-03-31 11:10 | disposition home or self-care (01) ==
LOC: NFLDREF 04-05 15:38
PROVIDERS: PCP Family Medicine; Visit Provider Physician Assistant
DX: Z34.91 Encounter for supervision of normal pregnancy, unspecified, first trimester (principal)
CPT/HCPCS: 87086; 87186

== ENCOUNTER 2022-04-05 09:02 | Outpatient (CLI) | payer OTHER, MEDICAID, SELFPAY ==
[2022-04-05 10:33] LABS: HCG Quantitative* 12.87 mIU/mL
== END 2022-04-05 09:03 | disposition home or self-care (01) ==
PROVIDERS: PCP Family Medicine; Visit Provider Advanced Practice Midwife
DX: Z34.90 Encounter for supervision of normal pregnancy, unspecified, unspecified trimester (principal); N96 Recurrent pregnancy loss
CPT/HCPCS: 84702

== ENCOUNTER 2022-04-05 12:27 | Emergency (ER) | payer OTHER, MEDICAID, SELFPAY ==
[2022-04-05 13:10] VITALS: BP 117/78; PULSE 98; RESP 18; TEMP 37.1; O2SAT 99; BMI 27.5
--- NOTE | 2022-04-05 14:05 | ED.GENADULT ---
HPI - General Adult General Time Seen by Provider: 14:05 Date Seen: 04/05/22 Chief complaint: Urogenital Problems, Female Stated complaint: 5 weeks /severe cramps Time Seen by Provider: 04/05/22 14:03 History of Present Illness HPI narrative: Molly is a 21-year-old female at around 5 weeks gestation by LMP 03/03 currently on progesterone then being treated for urinary tract infection presents emerged department with abdominal cramping. Patient states over the last 2 days she has had increased right lower quadrant abdominal cramping that has been persistent, she denies any urinary complaints, she denies any vaginal bleeding, she has had normal bowel movements. She has not had any nausea or vomiting. Patient has had a history of appendectomy. Pain has been constant, crampy in nature, patient has had history of small follicular cysts in the past. She was seen in clinic with a blood draw today her beta HCG was low at 12. She is scheduled for an ultrasound on 04/19 and to see a provider. Patient has had 2 miscarriages in the past. No other concerns at this time. Related Data Previous Rx's Medication Instructions Recorded fosfomycin tromethamine 3 gram 3 g PO ONCE #1 ea 03/15/22 oral packet norelgestromin 150 mcg-e.estradiol 1 patch transdermal QWEEK #3 ea 03/23/22 35 mcg/24 hr weekly transderm patch (Xulane) cephalexin 500 mg capsule 500 mg PO QID #30 caps 04/02/22 progesterone micronized 100 mg 100 mg vaginal QDAY 8 weeks #56 04/02/22 capsule caps Allergies Allergy/AdvReac Type Severity Reaction Status Date / Time No Known Allergies Allergy Unverified 02/25/22 14:51 Review of Systems Status of ROS: Reports: 10 or more systems reviewed and unremarkable except as noted in History and below [facility] Medical History History of heavy vaginal bleeding Previous recurrent miscarriages affecting , antepartum Surgical History History of tonsillectomy (2004) History of tympanostomy (2003) History of umbilical hernia repair (2004) Status post laparoscopic appendectomy Family History Paternal Grandfather Family history of CABG, Onset Age: 50 Maternal Grandmother Diabetes Pancreatic cancer 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 (Updated 02/25/22 @ 14:54 by Kyler Ramsey) Narrative: does not drink alcohol does not exercise non-smoker Exam Const: Vital Signs, click to edit/add: Vital Signs - 24 hr 04/05/22 13:10 Temperature 98.7 F Pulse Rate [Right Pulse Oximeter] 98 Respiratory Rate 18 Blood Pressure [Ri ght Upper Arm] 117/78 Pulse Oximetry 99 Oxygen Delivery Me thod Room Air Common normals: no apparent distress General appearance: cooperative HENMT: Common normals: normocephalic Head and scalp: normocephalic Eye: Common normals: PERRL and EOMs intact bilaterally Pupil: PERRL Neck & C-Spine: Common normals: full ROM and supple Resp: Common normals: normal respiratory effort and clear to auscultation bilaterally Auscultation: clear to auscultation bilaterally GI: Common normals: soft to palpation Auscultation: normoactive bowel sounds Palpation: soft and tender Details: RLQ : Common normals: no CVA tenderness Bladder/kidney exam: no CVA tenderness Back & Pelvis: Common normals: no CVA tenderness Extremity: Common normals: normal to inspection Course Course Hospital Course: Work up will include, TA and TV ultrasound, to repeat labs including, cbc, beta hcg and cmp. tylenol 1 gram for pain. Differential diagnosis include pyelonephritis, urinary tract infection, ovarian torsion, ectopic , ovarian cyst as well as all etiologies. To rule out any ovarian torsion versus ovarian cyst versus less likely ectopic . Patient was in agreement. Reevaluation(s) Reevaluation #1: Patient was updated on her CBC, metabolic panel, imaging and urinalysis results. CBC showed no leukocytosis, urinalysis showed improvement from previous, she is currently on Keflex, urine culture showed le sensitivity to E.coli, patient has just started the keflex, she is feeling better in regards to her urinary symptoms, transvaginal and transabdominal ultrasound showed of unknown location. No identifiable intrauterine gestational sac. No adnexal mass lesions. Per Dr. London Devries. Serum beta hCG 11.48. Recommended to have her recheck serum beta hCG level in 2-3 days, she is feeling better after above care given, plan would be to discharge to follow up with a primary care provider in clinic over. Reasons to return given. Time: 16:24 Vital Signs Vital signs: Initial Vital Signs Temperature 98.7 F 04/05/22 13:10 Temperature Source Temporal Artery Scan 04/05/22 13:10 Pulse Rate 98 04/05/22 13:10 Respiratory Rate 18 04/05/22 13:10 Blood Pressure 117/78 04/05/22 13:10 Blood Pressure Mean 91 04/05/22 13:10 Blood Pressure Position Sitting 04/05/22 13:10 Pulse Oximetry 99 04/05/22 13:10 Oxygen Delivery Method 04/05/22 13:10 Vital Signs Temperature 98.7 F 04/05/22 13:10 Pulse Rate 98 04/05/22 13:10 Respiratory Rate 18 04/05/22 13:10 Blood Pressure 117/78 04/05/22 13:10 Pulse Oximetry 99 04/05/22 13:10 Oxygen Delivery Method 04/05/22 13:10 Temperature 98.7 F 04/05/22 13:10 Pulse Rate 98 04/05/22 13:10 Respiratory Rate 18 04/05/22 13:10 Blood Pressure 117/78 04/05/22 13:10 Pulse Oximetry 99 04/05/22 13:10 Oxygen Delivery Method 04/05/22 13:10 Medical Decision Making Lab Data Labs: Lab Results 04/05/22 04/05/22 04/05/22 Range/Units 14:21 14:21 14:21 WBC 7.03 (4.50-11.00) K/uL RBC 4.56 (4.00-5.20) m/uL Hgb 13.3 (12.0-16.0) gm/dL Hct 39.9 (33.0-51.0) % MCV 88 (80-100) fL MCH 29 (26-34) pg MCHC 33 (32-36) gm/dL RDW Coeff of Roland 12.5 (11.5-15.5) % Plt Count 340 (140-440) K/uL Neut % (Auto) 58.0 (42.0-72.0) % Lymph % (Auto) 26.2 (20-44) % Shelby % (Auto) 14.5 H (0.0-11.0) % Eos % (Auto) 0.6 (0.0-7.0) % Baso % (Auto) 0.6 (0.0-3.0) % Neut # (Auto) 4.08 (1.7-7.0) K/uL Lymph # (Auto) 1.84 (0.90-2.90) K/uL Shelby # (Auto) 1.00 H (0.00-0.90) K/UL Eos # (Auto) 0.04 (0.00-0.50) K/uL Baso # (Auto) 0.04 (0.00-0.30) K/uL Abs Immat Gran (auto) 0.01 (0.00-0.30) K/uL Sodium 138 (135-149) mmol/L Potassium 4.0 (3.6-5.1) mmol/L Chloride 101 (96-114) mmol/L Carbon Dioxide 24 (20-32) mmol/L BUN 7 (5-24) mg/dL Creatinine 0.6 (0.5-1.5) mg/dL Estimated Creat Clear 128.08 Estimated GFR 131 ml/min Glucose 93 (60-115) mg/dL Calcium 9.8 (8.4-10.6) mg/dL Total Bilirubin 0.5 (0.1-1.5) mg/dL AST 21 (12-35) U/L ALT 13 (4-35) U/L Alkaline Phosphatase 128 (40-150) U/L Total Protein 8.2 (6.0-8.3) g/dL Albumin 4.7 (3.3-5.0) g/dL HCG, Quant 11.48 mIU/mL Urine Color Yellow (Yellow) Urine Appearance Clear (Clear) Urine pH 6.0 (5.0-8.5) Ur Specific [place] 1.020 (1.000-1.030) Urine Protein Negative (Negative) Urine Glucose (UA) Negative (Negative) Urine Ketones Negative (Negative) Urine Blood 1+ A (Negative) Urine Nitrite Negative (Negative) Urine Bilirubin Negative (Negative) Urine Urobilinogen 0.2 (0.2-1.0) Ur Leukocyte Esterase Negative (Negative) Urine RBC 2-5 A (0-2) Urine WBC 5-10 A (0-5) Ur Squamous Epith Cells Moderate A (None-Few) Urine Bacteria Moderate A (None) Discharge Plan Discharge Clinical Impression: Urinary tract infection, First trimester , Acute right lower quadrant pain Patient Disposition: Home, Self-Care Condition: Improved Instructions: (ED) Additional Instructions: To follow up with a provider [facility] to recheck serum beta HCG level in the next 2-3 days. Return if worsening symptoms. Prescriptions: No Action fosfomycin tromethamine 3 gram packet 3 g PO ONCE Qty: 1 0RF Xulane 150-35 mcg/24 hr patch weekly 1 patch transdermal QWEEK Qty: 3 3RF Rx Instructions: apply once weekly for 3 weeks of a 4-week cycle progesterone micronized 100 mg capsule 100 mg vaginal QDAY 56 Days Qty: 56 0RF Rx Instructions: Continue daily for 8 weeks or until the 12th week of . cephalexin 500 mg capsule 500 mg PO QID Qty: 30 1RF Rx Instructions: Take 1 tab every every 6 hours x 5 days. After completion of 5 days, take 1 (500 mg) capsule post-intercourse. Follow Up/Referrals: Tim Shane MD [Primary Care Provider] - Stand Alone Forms: Caption Data Info Instructions
--- NOTE | 2022-04-05 14:11 | CRLHL7_ITS ---
For Patients: As a result of the Century Cures Act, medical imaging exams and procedure reports are released immediately into your electronic medical record. You may view this report before your referring provider. If you have questions, please contact your health care provider. INDICATION: , 4 week 5 day, beta HCG 12, right lower quadrant pain. TECHNIQUE: Ultrasound OB pelvis transabdominal and transvaginal. Real-time ross-scale imaging of the pelvis was performed. COMPARISON: None. FINDINGS: Endometrium measures 11 mm. No identifiable intrauterine gestational sac. No adnexal lesions. Right ovary measures 2.3 x 1.9 x 1.4 cm. Normal color flow. Left ovary measures 2.8 x 1.5 x 2.0 cm. Normal color flow. Trace fluid in the cul-de-sac. IMPRESSION: of unknown location. No identifiable intrauterine gestational sac. No adnexal lesions. Dictated by London Devries MD @ 04/05/2022 3:41:08 PM (Electronically Signed)
--- OUTSIDE RECORDS SUMMARY | 2022-04-05 14:30 | XMS_ITS | Encounter Summary ---
:2000 Author Organization [facility] Address [address] [place] [address] Care Team Providers Name Role Phone Elsewhere, Pcp Primary Care Provider Unavailable Reason for Visit Reason Onset Date Comments Outpatient COVID-19 Testing 12/17/2020 Encounter Details Date Type Department Care Team Description 12/17/2020 External Outreach Department of Family Ancelmo Juan Contact With And MedicineRick D.O. (Suspected) Exposure Building, in [address] ([place], [place] Dx) [address] [facility] [address] [place], [place] [phone] [address] (Work) [phone] 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 Tobacco Use Types Packs/Day Years Used Date Smoking Tobacco: Never Sex Assigned at Date Recorded Not on file documented as of this encounter Progress Notes Zoraida See, R.N. - 12/17/2020 1:19 PM CDT Encounter created for COVID-19 screening. documented in this encounter Plan of Treatment Not on filedocumented as of this encounter Procedures Procedure Name Priority Date/Time Associated Diagnosis Comme nts SARS CORONAVIRUS-2 Routine 12/18/2020 10:44 AM Contact With An d Results for this RNA, V CDT (Suspected) Exposure procedu re are in To COVID-19 the results section. documented in this encounter Results SARS Coronavirus-2 RNA, V Asymptomatic (12/18/2020 10:44 AM CDT) [facility] Method Time Signature SARS-CoV-2 Swab, 12/19/2020 MKTO Specimen Nasopharynx 12:12 AM Source CDT SARS CoV-2 Undetected Undetected 12/19/2020 MKTO RNA, TMA 12:12 AM CDT Comment: SARS-CoV-2 RNA absent. This result does not rule out COVID-19 in the patient, as the sensitivity of the test depends o n the timing of the specimen collection and the quality of the specim en. Result should be correlated with patient's history and clinical presentat ion. ----ADDITIONAL INFORMATION---- This molecular amplification test was pe rformed using the Aptima SARS-CoV-2 assay ([employer] on the [employer] tem under emergency use authorization (EUA) by the U.S. Food and Drug Administ ration. Fact sheets for this EUA assay can be fo und at the following links: For Healthcare Providers: https://www.[employer] a.gov/media/817663/download For Patients: https://www.fda.gov/media/ 360504/download Specimen Anatomical Collection Method Collection Time Receive d Time (Source) Location / / Volume Laterality Varies 12/18/2020 10:44 12/18/2020 3:01 (Nasopharynx) AM CDT PM CDT Juan Ag D.O. LAB MICROBIOLOGY - GENERAL O GAVIOTAERAGENEVA Performing Organization Address City/State/ZIP Code Phon e Number [facility]- [address] [place] [address] [place] [address] System in [address] documented in this encounter Visit Diagnoses Diagnosis Contact With And (Suspected) Exposure To COVID-19 - Primary documented in this encounter Additional Health Concerns Infection Onset Date Last Indicated Resolved Time COVID19 Pending 12/17/2020 12/18/2020 12/19/2020 12:13 AM CDT documented as of this encounter Care Teams Marketing Editor Relationship Specialty Start Date End Date Elsewhere, Pcp PCP - General 03/07/20 documented as of this encounter
--- OUTSIDE RECORDS SUMMARY | 2022-04-05 14:30 | XMS_ITS | Encounter Summary ---
:2000 Author Organization [facility] Address [address] [place] [address] Care Team Providers Name Role Phone Unavailable Primary Care Provider Unavailable Encounter Details Date Type Department Care Team Description 08/19/2016 Hospital Encounter [facility] Wang Grissom, DUSTY, C.N.P. 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 Tobacco Use Types Packs/Day Years Used Date Smoking Tobacco: Never Sex Assigned at Date Recorded Not on file documented as of this encounter Last Filed Vital Signs Vital Sign Reading Time Taken Comments Blood Pressure - - Pulse - - Temperature - - Respiratory Rate - - Oxygen Saturation - - Inhaled Oxygen Concentration - - Weight 58.8 kg (129 lb 10.1 oz) 08/19/2016 6:27 PM CASEWORK SPECIALIST Height - - Body Mass Index - - documented in this encounter Progress Notes Ne Grissom - 08/19/2016 5:51 PM CST [id number] CHIEF COMPLAINT/REASON FOR VISIT Abdominal pain. HISTORY OF PRESENT ILLNESS Patient states that she has had a 3-day history of abdominal pain around her belly button. She has had some nausea but not vomited, and she has had some soft stools but no diarrhea. Last menstrual period was last week. The pain is on and off. She has gone to school, been eating and drinking normally. No other concerns or complaints. MEDICATIONS Please see today's [facility] EMR dated 08/19/2016. No changes. ALLERGIES Please see today's [facility] EMR dated 08/19/2016. No changes. VITAL SIGNS Please see today's [facility] EMR dated 08/19/2016. No changes. PHYSICAL EXAMINATION GENERAL: This is a well-nourished, well-developed 15-year-old female whom is non-ill appearing in no acute distress here with her parents. ABDOMEN: Abdominal pain is soft. minimally tender, centralized. There is no rigidity, rebound tenderness, hepatosplenomegaly. Bowel sounds present and active in all quadrants. DIAGNOSTICS X-ray shows significant stool. IMPRESSION/REPORT/PLAN Constipation. PLAN: Encouraged increasing fluids, fiber, and having bowel movement when she feels urge. Return to clinic as symptoms warrant. Ne Grissom N.P./ladan Electronically Signed By: NE GRISSOM NP On: 08/22/2016 09:03 AM Source: [facility] SANDRITASDOLBEYNZABRINA Document Id: [id number] WORK SPECIALIST documented in this encounter Miscellaneous Notes Miscellaneous - Yasmani Cole M.D. - 08/20/2016 7:29 AM CST Custom Result Letter August 20, 2016 AMAIRANI MARTINEZ [address] [facility] [id number] Dear AMAIRANI MARTINEZ, I am pleased to report that your results from the following diagnostic test(s) are benign. If you have questions or concerns, please do not hesitate to call our office. Result Name Current Result XR Abdomen 2 Views 08/19/2016 Sincerely, YASMANI COLE [address] [place] [address] [id number] Electronic Signature Electronically Signed By: YASMANI COLE MD On: August 20, 2016 This document has images extracted. Source: [facility] POWERCHART Document Id: [id number] Electronically signed by Anastasia [facility] Spiritual Minister [id number] at 01/17/2017 9:47 PM CDT Miscellaneous - Solomon Hanson L.P.N. - 08/19/2016 6:27 PM CST Pediatric Ab Initio Etl Developer Intake/History Pediatric Ab Initio Etl Developer Intake/History Entered On: 08/19/2016 18:30 CASEWORK SPECIALIST Performed On: 08/19/2016 18:27 CASEWORK SPECIALIST by SOLOMON HANSON LPN Intake Chief Complaint : Pt has abd pain near belly button, soft stools yesterday, nausea but has not vomitted Onset of Symptoms : x 3 days Temperature Oral : 36.8 DegC(Converted to: 98.2 DegF) Peripheral Pulse Rate : 90 /min Respiratory Rate : 16 /min Systolic Blood Pressure : 119 mmHg Diastolic Blood Pressure : 62 mmHg NIBP Mean : 81 mmHg BP Location : Right upper extremity Blood Pressure Cuff Size : Regular Actual Weight : 58.8 kg(Converted to: 129 lb 10 oz) Dosing Weight Clinic : 58.8 kg SOLOMON HANSON LPN - 08/19/2016 18:27 CASEWORK SPECIALIST General Info Information Given By : Patient, Mother Preferred Communication Mode : Verbal Languages : Japanese Is Patient Female and 13-50 no hysterectomy : Yes Status : Patient denies Are you ? : No SOLOMON HANSON LPN - 08/19/2016 18:27 CASEWORK SPECIALIST Subjective Pain Symptoms : Yes SOLOMON HANSON LPN - 08/19/2016 18:27 CASEWORK SPECIALIST Pain Scale Pain Scale Verbal 0-10 : Open SOLOMON HANSON LPN - 08/19/2016 18:27 CASEWORK SPECIALIST Pain Pain Assessment Grid Pain 1 Location : Abdomen SOLOMON HANSON LPN - 08/19/2016 18:27 CASEWORK SPECIALIST Dependent Habits Exposure to Tobacco Smoke : Care provider denies smoking in home Smoking Status : Never smoker Tobacco 2A : No Tobacco Use/Currently Using : No Tobacco Use/Last 30 Days : No Tobacco Use/Last 12 months : No SOLOMON HANSON LPN - 08/19/2016 18:27 CASEWORK SPECIALIST Source: [facility] POWERCHART Document Id: [id number] CASEWORK SPECIALIST!36 WORK SPECIALIST documented in this encounter Plan of Treatment Not on filedocumented as of this encounter Procedures Procedure Name Priority Date/Time Associated Diagnosis Comme nts DX ABDOMEN SUPINE Routine 08/19/2016 7:13 PM Resu lts for this WITH UPRIGHT OR CASEWORK SPECIALIST procedure ar e in DECUBITUS 2 VIEWS the result s section. documented in this encounter Results DX Abdomen Supine with Upright or Decubitus 2 Views (08/19/2016 7:13 PM CASEWORK SPECIALIST) Anatomical Region Laterality Modality Abdomen Right Radiographic Imaging Specimen (Source) Anatomical Collection Method Collection Time Re ceived Time Location / / Volume Laterality 08/19/2016 7:13 PM CASEWORK SPECIALIST Addenda Addendum by Provider, Bob Taylor 08/19/2016 7:13 PM CASEWORK SPECIALIST RAD^^^OW XR Abdomen 2 Views 08/19/2016 19:13:46 Impressions 08/20/2016 7:08 AM CASEWORK SPECIALIST 1. ??No acute findings. Please see above dictation. Narrative 08/20/2016 7:08 AM CASEWORK SPECIALIST EXAM: ??XR Abdomen 2 Views. DEMOGRAPHICS: ??15 years Female. INDICATION: ??umbilicus pain. ??Not othe rwise specified. COMPARISON: ??None available FINDINGS: ??Nonspecific bowel gas patter n. Moderate quantity of stool within the distal colon, rectal vault. N o appreciable free intraperitoneal air. Mild/moderate prominent lower thoracic/u pper lumbar curve convex left; correlation with physical exam fea tures recommended. Procedure Note Karlos Santa M.D. / Provider, Jean lemons M.D. - 01/24/2017 EXAM: XR Abdomen 2 Views. DEMOGRAPHICS: 15 years Female. INDICATION: umbilicus pain. Not otherwis e specified. COMPARISON: None available FINDINGS: Nonspecific bowel gas pattern. Moderate quantity of stool within the distal colon, rectal vault. N o appreciable free intraperitoneal air. Mild/moderate prominent lower thoracic/u pper lumbar curve convex left; correlation with physical exam fea tures recommended. IMPRESSION: 1. No acute findings. Please see above d ictation. Rachelle Malcolm R.TRodney(R)(CT), R.TRodney(R) IMG DIAGNOSTIC IMAG ING PROCEDURES documented in this encounter Visit Diagnoses Not on filedocumented in this encounter Additional Health Concerns Assessment Noted Time PHQ-9 Depression Total Score: 1 04/22/2014 12:46 PM CD T documented as of this encounter
--- OUTSIDE RECORDS SUMMARY | 2022-04-05 14:30 | XMS_ITS | Encounter Summary ---
:2000 Author Organization [facility] Address [address] [place] [address] Care Team Providers Name Role Phone Mary Farr M.D. Primary Care Provider Encounter Details Date Type Department Care Team Description 01/28/2017 Hospital Encounter HX [facility] Mer Encarnacion A PRN, C.N.P. [address] [place], [place] [phone] (Wo rk) 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 Tobacco Use Types Packs/Day Years Used Date Smoking Tobacco: Never Sex Assigned at Date Recorded Not on file documented as of this encounter Nursing Notes Melissa Carlton L.P.N. - 01/31/2017 3:06 PM CDT lab results 01/31/17 Results card sent, per Dr. Diallo. Electronically Signed By: MELISSA CARLTON LPN On: 01/31/2017 03:07 PM Source: [facility] POWERCHART Document Id: [id number] documented in this encounter Plan of Treatment Not on filedocumented as of this encounter Procedures Procedure Name Priority Date/Time Associated Comments Diagnosis CHLAMYDIA/GONORRHOEAE Routine 01/28/2017 4:33 PM Results for this AMPLIFIED RNA CDT procedure are in the results section. CHLAMYDIA TRACHOMATIS Routine 01/28/2017 4:33 PM Results for this AMPLIFIED RNA CDT procedure are in the results section. documented in this encounter Results Chlamydia trachomatis Amplified RNA (01/28/2017 4:33 PM CDT) Component Value Ref [facility] Method Time Signature HXChlamydia by POWERCHART Nucleic Acid Amplification HXFinal Negative for POWERCHART Chlamydia trachomatis by RNA amplification. HXFinal Reference: POWERCHART Negative HXFinal If you POWERCHART submitted a female urine sample, please note it is a Laboratory Developed Test. Specimen (Source) Anatomical Collection Method Collection Time Re ceived Time Location / / Volume Laterality Urine 01/28/2017 4:33 PM CDT Mer Encarnacion APRN, C.N.P. LAB MICROBIOLOGY - GENERAL ORDERABLES Performing Organization Address City/State/ZIP Code Phon e Number POWERCHART Chlamydia / gonorrhoeae Amplified RNA (01/28/2017 4:33 PM CDT) Component Value Ref Test Analysis Performed At [facility] Range Method Time Signature HX GC by Nucleic POWERCHART Acid Amplification HXFinal Negative for POWERCHART Neisseria gonorrhea by RNA amplification . HXFinal Reference: POWERCHART Negative HXFinal If you POWERCHART submitted a female urine sample, please note it is a Laboratory Developed Test. Specimen (Source) Anatomical Collection Method Collection Time Re ceived Time Location / / Volume Laterality Urine 01/28/2017 4:33 PM CDT Mer Encarnacion APRN, C.N.P. LAB MICROBIOLOGY - GENERAL ORDERABLES Performing Organization Address City/State/ZIP Code Phon e Number POWERCHART documented in this encounter Visit Diagnoses Not on filedocumented in this encounter Care Teams Hydraulic Oil Tool Operator Relationship Specialty Start Date End Date Mary Farr M.D. PCP - General 01/20/17 02/03/17 documented as of this encounter
--- OUTSIDE RECORDS SUMMARY | 2022-04-05 14:30 | XMS_ITS | Encounter Summary ---
:2000 Author Organization [facility] Address [address] [place] [address] Care Team Providers Name Role Phone Unavailable Primary Care Provider Unavailable Encounter Details Date Type Department Care Team Description 11/16/2016 Hospital Encounter [facility]X [facility] Jef Bonilla M.D. [address] [place] [address] ( effie) 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 Tobacco Use Types Packs/Day Years Used Date Smoking Tobacco: Never Sex Assigned at Date Recorded Not on file documented as of this encounter Last Filed Vital Signs Vital Sign Reading Time Taken Comments Blood Pressure - - Pulse - - Temperature - - Respiratory Rate - - Oxygen Saturation - - Inhaled Oxygen Concentration - - Weight 63.2 kg (139 lb 5.3 oz) 11/16/2016 3:58 PM CDT Height - - Body Mass Index - - documented in this encounter Progress Notes Jacobo Bonilla M.D. - 11/16/2016 3:40 PM CDT [id number] Patient presents initially with her mom and then her dad came in after she came back from x-ray. Over many months now she has been having pain in her chest area. It can be when she is even sitting. Shesays it is in her sternum and it is superficial. It does not seem to be worsened by activity and shehas no chest pain with activity otherwise. Family history is negative for any problems although mom has a mild case of scoliosis. She is currently having her period. There has been no trauma. She has just switched schools and that has been mildly stressful but she said the pain was there before she switched schools. She is not in any sports at this time. No history of asthma. We reviewed her medicatio n. We reviewed her allergies. VITAL SIGNS Per EMR. PHYSICAL EXAMINATION LUNGS: Generally clear. HEART: Regular rate, rhythm. ABDOMEN: Negative. CHEST: There is a pectus deformity but it is mild in the lower sternal area. No pain in the xiphoid area. DIAGNOSTICS X-ray reveals mild thoracic scoliosis and a mild pectus defect. IMPRESSION/REPORT/PLAN Chest wall pain with pectus excavatum, seems to be increasing in pain. PLAN: At this point recommend ibuprofen and we discussed proper dosage. I would recommend she followup with her primary provider to sort out whether she should see a thoracic histology specialist or a chest surgeon. With the pain and pectus, one might consider further evaluation. Could consider other possibilities as well. Recommended no heavy lifting or excessive activity that could exacerbate this in the meantime. She is not having any urinary symptoms and declined a urinalysis as she says that has not resolved. Jacobo Bonilla M.D./ladan Electronically Signed By: JACOBO BONILLA MD On: 11/18/2016 04:34 PM Source: [facility] MHSDOLBEYNONRADSYS Document Id: [id number] documented in this encounter Miscellaneous Notes Miscellaneous - Amelie Christie, LRodneyP.N. - 11/18/2016 4:02 PM CDT *General Message From: AMELIE CHRISTIE LPN ( Pediatric Nurse) Sent: 11/18/2016 16:02:57 CDT Subject: *General Message referral submitted to [facility], and to 's insurance Source: [facility] POWERCHART Document Id: [id number] Electronically signed by Anastasia [facility] Weekend Anchor [id number] at 01/18/2017 7:36 AM CDT Miscellaneous - Caballero, Lesley S, L.P.N. - 11/16/2016 3:[address] Light Mechanic Intake/History Pediatric Street Light Mechanic Intake/History Entered On: 11/16/2016 16:00 CDT Performed On: 11/16/2016 15:58 CDT by LESLEY CABALLERO GANG TAILER Intake Peripheral Pulse Rate : 77 /min Systolic Blood Pressure : 120 mmHg Diastolic Blood Pressure : 66 mmHg NIBP Mean : 84 mmHg LESLEY CABALLERO LPN - 11/16/2016 16:01 CDT Chief Complaint : pt has a defect in chest/sternum and pain is in that area, intermittent, Onset of Symptoms : off and on for months Temperature Core : 36.7 DegC(Converted to: 98.1 DegF) BP Location : Right upper extremity Blood Pressure Cuff Size : Regular Actual Weight : 63.2 kg(Converted to: 139 lb 5 oz) Dosing Weight Clinic : 63.2 kg LESLEY CABALLERO LPN - 11/16/2016 15:58 CDT General Info Languages : Austrian Is Patient Female and 13-50 no hysterectomy : Yes Status : Patient denies Are you ? : No LESLEY CABALLERO LPN - 11/16/2016 15:58 CDT Subjective Pain Symptoms : Yes LESLEY CABALLERO LPN - 11/16/2016 15:58 CDT Pain Scale Pain Scale Verbal 0-10 : Open LESLEY CABALLERO LPN - 11/16/2016 15:58 CDT Pain Pain Assessment Grid Pain 1 Location : Chest Time Pattern : Intermittent LESLEY CABALLERO LPN - 11/16/2016 15:58 CDT Dependent Habits Exposure to Tobacco Smoke : Care provider denies smoking in home Smoking Status : Never smoker Tobacco 2A : No Tobacco Use/Currently Using : No Tobacco Use/Last 30 Days : No Tobacco Use/Last 12 months : No LESLEY CABALLERO LPN - 11/16/2016 15:58 CDT Source: [facility] POWERCHART Document Id: [id number] documented in this encounter Plan of Treatment Not on filedocumented as of this encounter Procedures Procedure Name Priority Date/Time Associated Diagnosis Comme nts DX CHEST AP OR PA Routine 11/16/2016 4:21 PM Resu lts for this AND LATERAL 2 VIEWS CDT procedur e are in the results section. documented in this encounter Results DX Chest AP or PA and Lateral 2 Views (11/16/2016 4:21 PM CDT) Anatomical Region Laterality Modality Chest N/A Radiographic Imaging Specimen (Source) Anatomical Collection Method Collection Time Re ceived Time Location / / Volume Laterality 11/16/2016 4:21 PM CDT Addenda Addendum by ProviderClaudia M.D. o matti 11/16/2016 4:21 PM CDT RAD^^^OW XR Chest 2 Views 11/16/2016 16:21:00 Narrative 11/16/2016 4:31 PM CDT EXAM: XR Chest 2 Views INDICATION: pectus now with random pain AGE: 16 years-old COMPARISON: None. ?? Impression: Normal heart size. ??Lungs a re clear. Mild pectus deformity. Thoracic dextroscoliosis. Procedure Note Vasyl Butt M.D. / ProviderClaudia M.D. - 01/24/2017 EXAM: XR Chest 2 Views INDICATION: pectus now with random pain AGE: 16 years-old COMPARISON: None. Impression: Normal heart size. Lungs are clear. Mild pectus deformity. Thoracic dextroscoliosis. Ani RoperT.(R), R.TRodney(R)(M) IMG DIAGNOSTIC IM AGING PROCEDURES documented in this encounter Visit Diagnoses Not on filedocumented in this encounter Additional Health Concerns Assessment Noted Time PHQ-9 Depression Total Score: 1 04/22/2014 12:46 PM CD T documented as of this encounter
--- OUTSIDE RECORDS SUMMARY | 2022-04-05 14:30 | XMS_ITS | Encounter Summary ---
:[address] [facility] Address [address] [place] [address] Care Team Providers Name Role Phone Elsewhere, Pcp Primary Care Provider Unavailable Encounter Details Date Type Department Care Team Description 06/15/2020 Admin Visit Department of Family Medicine, [address] [address] [facility] [phone] 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 Tobacco Use Types Packs/Day Years Used Date Smoking Tobacco: Never Sex Assigned at Date Recorded Not on file documented as of this encounter Plan of Treatment Not on filedocumented as of this encounter Visit Diagnoses Not on filedocumented in this encounter Additional Health Concerns Infection Onset Date Last Indicated Resolved Time COVID19 Pending 06/15/2020 06/15/2020 06/16/2020 2:[address] JUSTICE documented as of this encounter Care Teams Retail Field Supervisor Relationship Specialty Start Date End Date Elsewhere, Pcp PCP - General 03/07/20 documented as of this encounter
--- OUTSIDE RECORDS SUMMARY | 2022-04-05 14:30 | XMS_ITS | Encounter Summary ---
:2000 Author Organization [facility] Address [address] [place] [address] Care Team Providers Name Role Phone Elsewhere, Pcp Primary Care Provider Unavailable Reason for Visit Reason Comments COVID Inquiry Encounter Details Date Type Department Care Team Description 12/17/2020 Clinical Communication Department of [facility], Pcp COVID Inquiry [facility], [facility], in [place], [place] [address] [place] [address] 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 Tobacco Use Types Packs/Day Years Used Date Smoking Tobacco: Never Sex Assigned at Date Recorded Not on file documented as of this encounter Miscellaneous Notes Telephone Encounter - Kasia Ayala - 12/17/2020 12:26 PM CDT What is the purpose of the call?: Symptomatic (Calling PCP Office) Calling [facility] [facility] What region is the patient calling from? : [place] Have you tested positive for COVID-19 in the last 20 days? : No In the past 14 days are any of the following symptoms new to you and not related to an existing health condition?: No symptoms noted In the past 14 days have you had close contact* with a person who has a LABORATORY CONFIRMED case ofCOVID-19?: No exposure noted, follow local process (End Screening) Testing Recommendation Endpoint Is testing recommended? : Recommended to test Plan: Endpoint recommendation: Followed regional OTG *Reminder if sending patient for testing in [facility] or [facility], route encounter to the correct testing pool. documented in this encounter Plan of Treatment Not on filedocumented as of this encounter Visit Diagnoses Not on filedocumented in this encounter Care Teams Parking Attendant Relationship Specialty Start Date End Date Elsewhere, Pcp PCP - General 03/07/20 documented as of this encounter
--- OUTSIDE RECORDS SUMMARY | 2022-04-05 14:30 | XMS_ITS | Encounter Summary ---
:2000 Author Organization [facility] Address [address] [place] [address] Care Team Providers Name Role Phone Alysha Mer Alba APRN C.N.PRodney Primary Care Provider [phone] Encounter Details Date Type Department Care Team Description 03/03/2017 Hospital Encounter HX NO MAPPING Arturo Collins, P.ARodney-CRodney [address] [facility] [place], [place] [phone] (Wo rk) 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 Tobacco Use Types Packs/Day Years Used Date Smoking Tobacco: Never Sex Assigned at Date Recorded Not on file documented as of this encounter Miscellaneous Notes Miscellaneous - Conversion, Historical Provider Ser - 03/03/2017 11:59 PM CDT Coding Summary-Paper Based CODING DATE: 03/14/2017 FINAL [facility] STATUS: * Discharged to Home or Self Care [facility] DX: REASON FOR VISIT DX: FINAL DX: PRINCIPAL: R30.0 Dysuria SECONDARY: PROCEDURES DOCTOR NAME DATE NOTE: The code number assigned matches the documented diagnosis and / or procedure in the patient's chart. However, the narrative phrase printed from the coding software may appear abbreviated, or result in slightly different terminology. Coded By: NIKHIL MARINO Date Saved: 03/14/2017 09:42 am Source: [facility] Document Id: [id number] documented in this encounter Plan of Treatment Not on filedocumented as of this encounter Visit Diagnoses Not on filedocumented in this encounter Care Teams Poultry Packer Relationship Specialty Start Date End Date Mer Encarnacion, DUSTY, C.N.P. PCP - General 02/04/17 03/06/[address] [phone] documented as of this encounter
--- OUTSIDE RECORDS SUMMARY | 2022-04-05 14:30 | XMS_ITS | Clinical Summary ---
:2000 Author Organization [facility] Address [address] [place] [address] Care Team Providers Name Role Phone Elsewhere, Pcp Primary Care Provider Unavailable Source Comments Patient records contain information from all sites at [facility]. For routine questions regarding patient records, call [phone] during business hours, M-F 8:00 AM - 5:00 PM Central Time. Record requests for emergency care only can be directed to [phone] at any time.[facility] Immunizations Name Administration Dates Next Due 4vHPV (discontinued) 04/22/2014, 03/15/2013, 01/28/2012 DTaP (Infanrix, Tripedia) 03/04/2006, 03/15/2002, 03/13/2001 , 01/11/2001, 2000 HepA Pediatric/Adolescent 03/15/2013, 01/28/2012 HepB, Unspecified 12/15/2001, 01/11/2001, 2000 Hib (PRP-T) (ACTHIB, HIBERIX) 12/15/2001, 01/11/2001, 2000 IPV 03/04/2006, 03/13/2001, 01/11/2001, 09/2000 MCV4 (Menactra) 01/28/2012 MMR 03/04/2006, 2001 PCV7 (discontinued) 12/15/2001, 01/11/2001, 2000 Tdap 01/28/2012 JUDI 03/23/2007, 09/11/2003 Family History Medical History Relation Name Comments Coronary artery disease Grandfather Dyslexia Mother Relation Name Status Comments Grandfather Mother 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 Tobacco Use Types Packs/Day Years Used Date Smoking Tobacco: Never Sex Assigned at Date Recorded Not on file Last Filed Vital Signs Vital Sign Reading Time Taken Comments Blood Pressure - - Pulse - - Temperature - - Respiratory Rate - - Oxygen Saturation - - Inhaled Oxygen Concentration - - Weight 65.5 kg (144 lb 6.4 oz) 03/03/2017 2:54 PM CDT Height 164.5 cm (5' 4.76) 01/27/2017 3:58 PM CDT Body Mass Index - - Plan of Treatment Health Maintenance Due Date Last Done Comments Cervical Cancer Screening 2000 Chlamydia and Gonorrhea 2000 Screening HIV Screening 2000 Hearing Screening during 2000 Well Child Visit Hepatitis C Screening 2000 1 week Well Child Check-Up 2000 1 month Well Child Check-Up 2000 2 month Well Child Check-Up 2000 4 month Well Child Check-Up 2000 6 month Well Child / 02/05/2001 Alternative Check-Up 9 month Well Child Check-Up 05/08/2001 12 month Well Child / 08/08/2001 Alternative Check-Up 15 month Well Child Check-Up 11/06/2001 18 month Well Child 02/05/2002 2 year Well Child Check-Up 08/08/2002 30 month Well Child Check-Up 02/05/2003 3 year Well Child Check-Up 08/08/2003 4 year Well Child Check-Up 08/08/2004 5 year Well Child Check-Up 08/08/2005 6 year Well Child Check-Up 08/08/2006 7 year Well Child / 08/08/2007 Alternative Check-Up 8 year Well Child Check-Up 08/08/2008 9 year Well Child / 08/08/2009 Alternative Check-Up 10 year Well Child Check-Up 08/08/2010 11 year Well Child Check-Up 08/08/2011 12 year Well Child Check-Up 08/08/2012 13 year Well Child Check-Up 08/08/2013 14 year Well Child Check-Up 08/08/2014 15 year Well Child Check-Up 08/08/2015 16 year Well Child Check-Up 08/08/2016 17 year Well Child Check-Up 08/08/2017 18 year Well Child Check-Up 08/08/2018 19 year Well Child Check-Up 08/08/2019 20 year Well Child Check-Up 08/08/2020 21 year Well Child Check-Up 08/08/2021 Depression Screening (Annual 08/08/2021 PHQ-2) Well Child Check-Up ([facility]) 08/08/2021 DTaP,Tdap,and Td Vaccines (7 01/27/2022 01/28/2012, 006, - Td or Tdap) 03/15/2002, Additional history exists Influenza Vaccine (#1) 2022 09/15/2020, 05/17/2019, 05/23/2018, Additional history exists Hepatitis B Vaccines Completed 12/15/2001, 12/15/2001, 01/11/2001, Additional history exists Pneumococcal vaccine (0-64 Aged Out 12/15/2001, 2, No longer eligible years) 01/11/2001, Additional based on patient's age history exists to complete this topic Meningococcal Vaccine Aged Out 01/28/2012 No longer eligible based on patient 's age to complete this topic HPV Vaccines Completed 11/16/2017, 04/22/2014, 03/15/2013, Additional history exists COVID-19 Vaccine Completed 10/16/2021, 2020, 08/11/2020 Insurance Payer Benefit Plan / Subscriber ID Effective Phone Address T ype Group Dates PREFERREDONE PREFERREDONE [id number] 2019-Pre [phone] PPO ADMINISTRATIVE ADMINISTRATIVE sent [phone] SERVICES [employer] [place] [phone] Care Teams Outside Medical Sales Representative Relationship Specialty Start Date End Date Elsewhere, Pcp PCP - General 03/07/20
--- OUTSIDE RECORDS SUMMARY | 2022-04-05 14:30 | XMS_ITS | Encounter Summary ---
:2000 Author Organization [facility] Address [address] [place] [address] Care Team Providers Name Role Phone Elsewhere, Pcp Primary Care Provider Unavailable Reason for Visit Reason Onset Date Comments Outpatient COVID-19 Testing 06/15/2020 Encounter Details Date Type Department Care Team Description 06/15/2020 External Outreach Department of Juan Ag Infect ion Upper Internal Medicine in J, D.O. Respiratory (Primary [place], [place] [address] Dx) [address] [place] [phone] 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 Tobacco Use Types Packs/Day Years Used Date Smoking Tobacco: Never Sex Assigned at Date Recorded Not on file documented as of this encounter Progress Notes Areli Li CRodneyMRodneyARodney - 06/15/2020 8:42 AM CST Encounter created for the drive-through COVID-19 testing. [facility] documented in this encounter Plan of Treatment Not on filedocumented as of this encounter Procedures Procedure Name Priority Date/Time Associated Diagnosis Comme nts SARS CORONAVIRUS-2 Routine 06/15/2020 1:04 PM Infection Upper Results for this RNA, V JOCKEY [facility]ET Respiratory procedure are i n the results section. documented in this encounter Results SARS Coronavirus-2 RNA, V Symptomatic (06/15/2020 1:04 PM JOCKEY VALET) [facility] Method Time Signature SARS-CoV-2 Swab, 06/16/2020 MKTO Specimen Nasopharynx 2:04 PM JOCKEY VALET Source SARS CoV-2 Undetected Undetected 06/16/2020 MKTO RNA, TMA 2:04 PM JOCKEY [facility]ET Comment: SARS-CoV-2 RNA absent. This result does not rule out COVID-19 in the patient, as the sensitivity of the test depends o n the timing of the specimen collection and the quality of the specim en. Result should be correlated with patient's history and clinical presentat ion. ----ADDITIONAL INFORMATION---- This test is performed using the Aptima SARS-CoV-2 assay ([employer] which has received Emergency Use Authori zation (EUA) by the U.S. Food and Drug Administration. Fact sheets for this Emergency Use Autho rization (EUA) assay can be found at the following links: For Healthcare Providers: https://www.[employer] a.gov/media/525322/download For Patients: https://www.fda.gov/media/ 007376/download Specimen Anatomical Collection Method Collection Time Receive d Time (Source) Location / / Volume Laterality Varies 06/15/2020 1:04 PM 0 (Nasopharynx) [facility] 11:28 PM [facility]OC[facility] Juan Ag D.O. LAB MICROBIOLOGY - GENERAL O DEJAN Performing Organization Address City/State/ZIP Code Phon e Number [facility]- [address] [place] [address] [place] [address] System [address] documented in this encounter Visit Diagnoses Diagnosis Infection Upper Respiratory - Primary documented in this encounter Additional Health Concerns Infection Onset Date Last Indicated Resolved Time COVID19 Pending 06/15/2020 06/15/2020 06/16/2020 2:04 PM [facility] documented as of this encounter Care Teams Poultry Scalder Relationship Specialty Start Date End Date Elsewhere, Pcp PCP - General 03/07/20 documented as of this encounter
--- OUTSIDE RECORDS SUMMARY | 2022-04-05 14:30 | XMS_ITS | Encounter Summary ---
:2000 Author Organization [facility] Address [address] [place] [address] Care Team Providers Name Role Phone Unavailable Primary Care Provider Unavailable Encounter Details Date Type Department Care Team Description 09/15/2016 Hospital Encounter HX [facility] FAMILYPRA Mireya Solorzano M.D. [address] [place], [place] [phone] (Wo rk) 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 [...] - Inhaled Oxygen Concentration - - Weight 58.2 kg (128 lb 4.9 oz) 09/15/2016 2:20 PM ORACLE APPLICATION CONSULTANT Height - - Body Mass Index - - documented in this encounter Progress Notes Mireya Hendricks M.D. - 09/15/2016 2:10 PM CST [id number] CHIEF COMPLAINT/ REASON FOR VISIT Sore throat and fevers. HISTORY OF PRESENT ILLNESS Amairani is a 16 year old female who presents to the clinic today with her mother for sore throat andfevers. For the last three days she has had a sore throat, fevers, body aches and has been more fatigued than usual. The patient denies any additional questions or concerns at this time. MEDICATIONS Post-visit Medication Reconciliation Reviewed and are as outlined in the EMR dated 09/15/2016. ALLERGIES No known drug allergies. SYSTEMS REVIEW Please see HPI for pertinent positives, otherwise rest of ROS negative. PAST MEDICAL/SURGICAL HISTORY 1. Myopia. 2. Pectus excavatum. 3. Allergic rhinitis. 4. Hearing loss, left ear. PREVENTIVE SERVICES Tobacco use: none, never smoker. VITAL SIGNS WEIGHT: 58.2 kg. TEMP: 37.9 Deg C. PULSE: 104 /min. RESP: 28 /min. SpO2: 98 %. SYSTOLIC: 110 mmHg. DIASTOLIC: 70 mmHg. PHYSICAL EXAMINATION GENERAL: Patient is alert and oriented times three, in no acute distress, good hygiene and is dressed appropriately. ENT: Tympanic membranes are normal bilaterally. Oropharynx is without erythema or exudate. Nasal mucosa is without injection. Neck is without adenopathy. LYMPH NODES: Not palpably enlarged and no nodules are palpated. HEART: Regular rate and rhythm without murmur. LUNGS: Clear to auscultation. ABDOMEN: Soft and nontender with no masses. DIAGNOSTICS: Rapid strep test results: negative, culture is pending. IMPRESSION/REPORT/PLAN 1. Influenza-like illness. Rapid strep test was negative; they will be contacted with culture results and any further recommendations pending results. Symptomatic cares were recommended including rest,fluids and Tylenol or Ibuprofen. She may go to school if she does not have a fever. 2. Follow up. The patient will contact the clinic with any new or worsening symptoms. This document serves as a record of services personally performed by Mireya Gaona MD. It was created on their behalf by Mary Tipton, a trained medical liaison. The creation of this record is based on the scribe's personal observations and the provider's statements to them. This document has been thomas cked and approved by the attending provider. Mireya Roberson M.D./niko Electronically Signed By: MIREYA HENDRICKS MD On: 10/14/2016 08:15 AM Source: [facility] MHSDOLBEYNONRADSYS Document Id: [id number] LE APPLICATION CONSULTANT documented in this encounter Miscellaneous Notes Miscellaneous - Mireya Hendricks M.D. - 09/16/2016 10:21 PM ORACLE APPLICATION CONSULTANT Ambulatory Patient Summary [address] [id number] Visit Information Name: AMAIRANI MARTINEZ [facility] Number: [id number] Current Date: 09/16/2016 22:21:07 Physicians Attending Provider: MIREYA HENDRICKS MD Primary Care Provider: MARY HERNANDEZ MD AMAIRANI MARTINEZ has been given the following list of follow-up instructions, medication list,and patient education materials: Follow-up Instructions Your Medications Here is a list of your medications. It is important to take your medications as directed. Use a pillbox or chart to help remind you to take your medications. Please let your doctor or nurse know if you have problems taking your medications. Medication/Strength How to Take Indications/Special Instructions/Comments/Notes for Patient Medication Changes/Routing No Medications found Stop Taking the Following Medications: Medication list as of 09-16-16 22:21 Attention: If you have any medications at home that are not on this list, DO NOT take them until youcontact your provider for clarification. Give a copy of your medication list to your primary care provider. Update your medication list any time medications or doses are changed and carry your medication list at all times in case of emergency. Electronically Signed By: MIREYA HENDRICKS MD Signed On:16-SEP-2016 22:21:00 Your Allergies & Intolerances Substance Reaction Symptoms Category Comments No Known Allergies Drug Your Problem List Problem Status Onset Comments Allergic Rhinitis, Cause Unspecified Active 04/10/2010 Myopia Active Pectus Excavatum Active Hearing loss L, low tone Active 03/15/2013 Your Upcoming Appointments Date Time Location Provider No Appointments found Attention: Contact your local Clinic if further appointment detail needed. Consider Using Patient Online Services Patient Online Services is a secure online and Mobile application that lets you: ?? View lab and test results ?? View portions of your medical record including clinical notes, immunizations and discharge summaries ?? Request an appointment or medication refill ?? Review your appointment schedule ?? Send secure messages to your care team Its easy to create an account if you dont have one. Go to [email or web address] and click on Create Your Account. Then, follow the directions to complete the online form. Youll be asked for your [facility] number which you can find at the top of this document. Your Goals/Additional instructions: Source: [facility] Jott Document Id: [id number] LE APPLICATION CONSULTANT Miscellaneous - Mireya Hendricks M.D. - 09/16/2016 10:21 PM ORACLE APPLICATION CONSULTANT Ambulatory Discharge Medication List [address] [id number] Visit Information Name: AMAIRANI MARTINEZ [facility] Number: [id number] Current Date: 09/16/2016 22:21:06 Attending Provider: MIREYA HENDRICKS MD Primary Care Provider: MARY HERNANDEZ MD DONYA AMAIRANICHESTER MOBLEY has been given the following list of medications: Your Medications It is important to take your medications as directed. Use a pill box or chart to help remind you to take your medications. Please let your doctor or nurse know if you have problems taking your medications. Medication/Strength How to Take Indications/Special Instructions/Comments/Notes for Patient Medication Changes/Routing No Medications found Stop Taking the Following Medications: Medication list as of 09-16-16 22:21 Attention: If you have any medications at home that are not on this list, DO NOT take them until youcontact your provider for clarification. Give a copy of your medication list to your primary care provider. Update your medication list any time medications or doses are changed and carry your medication list at all times in case of emergency. Electronically Signed By: MIREYA HENDRICKS MD Signed On:16-SEP-2016 22:21:00 Additional Information: Source: [facility] POWERCHART Document Id: [id number] LE APPLICATION CONSULTANT Miscellaneous - Amelie Christie L.P.N. - 09/15/2016 2:20 PM CST Pediatric Implementation Coordinator Intake/History Pediatric Implementation Coordinator Intake/History Entered On: 09/15/2016 14:24 ORACLE APPLICATION CONSULTANT Performed On: 09/15/2016 14:20 ORACLE APPLICATION CONSULTANT by AMELIE CHRISTIE DYE AND CHEMICAL COORDINATOR Intake Chief Complaint : c/o ST for a couple days, fever, interm CASTILLO, no appetite, vomitted once Temperature Core : 37.9 DegC(Converted to: 100.2 DegF) Peripheral Pulse Rate : 104 /min (HI) Respiratory Rate : 28 /min (HI) Heart Rhythm : Regular Systolic Blood Pressure : 110 mmHg Diastolic Blood Pressure : 70 mmHg NIBP Mean : 83 mmHg BP Location : Left upper extremity Blood Pressure Cuff Size : Regular SpO2 : 98 % Actual Weight : 58.2 kg(Converted to: 128 lb 5 oz) Weight Source : Standing scale Dosing Weight Clinic : 58.2 kg AMELIE CHRISTIE DYE AND CHEMICAL COORDINATOR - 09/15/2016 14:20 ORACLE APPLICATION CONSULTANT General Info Languages : Mohawk Is Patient Female and 13-50 no hysterectomy : Yes Status : Patient denies Are you ? : No AMELIE CHRISTIE LPN - 09/15/2016 14:20 ORACLE APPLICATION CONSULTANT Subjective Pain Symptoms : No AMELIE CHRISTIE LPN - 09/15/2016 14:20 ORACLE APPLICATION CONSULTANT Dependent Habits Exposure to Tobacco Smoke : Care provider denies smoking in home Smoking Status : Never smoker Tobacco 2A : No Tobacco Use/Currently Using : No Tobacco Use/Last 30 Days : No Tobacco Use/Last 12 months : No AMELIE CHRISTIE LPN - 09/15/2016 14:20 ORACLE APPLICATION CONSULTANT Source: [facility] POWERCHART Document Id: [id number] ORACLE APPLICATION CONSULTANT!30 LE APPLICATION CONSULTANT documented in this encounter Plan of Treatment Not on filedocumented as of this encounter Procedures Procedure Name Priority Date/Time Associated Diagnosis Comme nts RAPID STREP A Routine 09/15/2016 2:25 PM Results for this SCREEN ORACLE APPLICATION CONSULTANT procedure are i n the results section. RAPID STREP A Routine 09/15/2016 2:25 PM Results for this SCREEN ORACLE APPLICATION CONSULTANT procedure are i n the results section. documented in this encounter Results Rapid Strep A Screen (09/15/2016 2:25 PM ORACLE APPLICATION CONSULTANT) [facility] Method Time Signature HXRapid Strep POWERCHART Confirmation HXPre Negative for POWERCHART Group A Strep by culture. HXFinal Negative for POWERCHART Group A Strep by culture. Specimen Anatomical Collection Method Collection Time Receive d Time (Source) Location / / Volume Laterality Throat 09/15/2016 2:25 PM 7 2:25 ORACLE APPLICATION CONSULTANT PM ORACLE APPLICATION CONSULTANT Mireya Baugh M.D. LAB MICROBIOLOGY - GEN ERAL ORDERABLES Performing Organization Address [facility] Code Phon e Number POWERCHART Rapid Strep A Screen (09/15/2016 2:25 PM ORACLE APPLICATION CONSULTANT) [facility] Method Time Signature HXStrep A POWERCHART Screen Rapid HXFinal Negative for POWERCHART Strep Group A by rapid screen. HXFinal Culture POWERCHART confirmation to follow. Specimen (Source) Anatomical Collection Method Collection Time Re ceived Time Location / / Volume Laterality Throat 09/15/2016 2:25 PM ORACLE APPLICATION CONSULTANT Mireya Baugh M.D. LAB MICROBIOLOGY - GEN ERAL ORDERABLES Performing Organization Address City/[facility] Code Phon e Number POWERCHART documented in this encounter Visit Diagnoses Not on filedocumented in this encounter Additional Health Concerns Assessment Noted Time PHQ-9 Depression Total Score: 1 04/22/2014 12:46 PM CD T documented as of this encounter
--- OUTSIDE RECORDS SUMMARY | 2022-04-05 14:30 | XMS_ITS | Encounter Summary ---
:2000 Author Organization [facility] Address [address] [place] [address] Care Team Providers Name Role Phone Elsewhere, Pcp Primary Care Provider Unavailable Encounter Details Date Type Department Care Team Description 12/18/2020 Admin Visit Department of Family Medicine, [address] [phone] [facility] [phone] 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 Tobacco Use Types Packs/Day Years [...] documented as of this encounter Care Teams Grapple Crew Leader Relationship Specialty Start Date End Date Elsewhere, Pcp PCP - General 03/07/20 documented as of this encounter
--- OUTSIDE RECORDS SUMMARY | 2022-04-05 14:30 | XMS_ITS | Encounter Summary ---
:2000 Author Organization [facility] Address [address] [place] [address] Care Team Providers Name Role Phone Mer Encarnacion APRN C.N.PRodney Primary Care Provider [phone] Encounter Details Date Type Department Care Team Description 03/03/2017 Hospital Encounter HX FBCV FAMILYPRA Isai Collins, P.ARodney-CRodney [address] [facility] [place], [place] [phone] (Wo rk) 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 [...] 6.4 oz) 03/03/2017 2:54 PM CDT Height - - Body Mass Index - - documented in this encounter Progress Notes Dickson Johnson, P.A.-C. - 03/03/2017 2:44 PM CDT [id number] CHIEF COMPLAINT/REASON FOR VISIT Possible UTI. HISTORY OF PRESENT ILLNESS Amairani is a very pleasant 16-year-old female patient who presents with her mother today for evaluation of possible UTI. Patient states that for the past 2 weeks she has had increasing frequency of urination and now it is burning when she goes to the bathroom. She states she has had a UTI in the past and it feels somewhat similar to that time, yet not quite as bad as it did last time yet. She does not have any fevers. She is not having any back pain. She does feel some urgency to go to the bathroom.She denies any known vaginal discharge. Last menstrual period was about 2 weeks ago. She denies any concern for sexually transmitted infections, in fact, she was just started on control a month ago and was screened for gonorrhea and chlamydia then. She states that she has no need for sexually transmitted infection testing today. No abdominal pain. MEDICATIONS Reviewed in EMR. Reclipsen 0.15 mg/0.3 mg oral tablet daily. ALLERGIES No known allergies. SYSTEMS REVIEW Please see HPI. PAST MEDICAL/SURGICAL HISTORY Allergic rhinitis. Myopia. Hearing loss, left low tone. SOCIAL HISTORY No tobacco use. VITAL SIGNS Temperature 37 degrees Celsius. Heart rate 68 beats per minute. Respiratory rate 16. Blood pressure 122/64. Weight 65.5 kg. PHYSICAL EXAMINATION GENERAL: Patient is a well-appearing, well-developed, well-nourished. SKIN: No significant rash or lesion is noted. HEENT: Normocephalic and atraumatic. Pupils are equal, round, and reactive to light. Sclerae are white. Conjunctivae are clear. Extraocular movements are intact. External ears appear normal. Mouth reveals moist mucous membranes. Nares are clear bilaterally. NECK: Supple. No lymphadenopathy noted. ABDOMEN: Nondistended. MUSCULOSKELETAL: No cyanosis, clubbing or edema. NEUROLOGIC: Patient is alert and oriented to person, place, time, and situation. Cranial nerves II through XII are grossly intact. IMPRESSION/REPORT/PLAN Urinary tract infection. UA shows trace blood, trace leukocyte esterase, could be contamination due to 4 to 10 squamous cells. The patient does have 4 to 10 white blood cells as well. Due to the patient's symptoms even with urinalysis not showing nitrites, we did decide to treat today. The patient does not have any antibiotic allergies. She also does have a possibly infected ingrown toenail, so we did decide to do Keflex instead of the Macrobid at this time to try to help with that, although it is not the primary concern. Return if persistent or worsening symptoms. Dickson Johnson P.A.-C./ladan Electronically Signed By: DICKSON JOHNSON PA-C On: 04/27/2017 09:41 PM Source: [facility] MHSDOLBEYNKAYLASYS Document Id: [id number] documented in this encounter Miscellaneous Notes Miscellaneous - Dickson Johnson - 03/09/2017 9:46 PM CDT Results Notification Document Contains Addenda Addendum by TAMARA FONTANA LPN on March 10, 2017 15:33:22 CDT Spoke with: ( _ ) Patient ( X Lilo ) Parent ( _ ) Spouse ( _ ) Child ( ) Other: _ Call back telephone number: [phone] Reason for Call: -lab results Chief Complaint: Patient's mom informed of message below. She states that their insurnace has changed and now they will need to be seen in [place]. She will talk with patient and find someone in [place] to followup with. Patient/Caller response to Education/Information given: ( X ) Verbalizes understanding of instructions ( _ ) Provide intervention per provider instruction ( _ ) Reinforce information already given ( _ ) Reinforce Plan of Care ( _ ) Provide preprinted information by mail (if applicable) Source/Reference used (if applicable): Dickson Johnson OK to leave message on voice mail? NA OK to send message via patient portal? _ Patient told to expect return call: ( _ ) today ( _ ) tomorrow ( _ ) next work day Callers preferred language for Healthcare discussion: citizen of [place] Was an installation technician used for this call? no Other ( --_ ) Addendum by TAMARA FONTANA LPN on March 10, 2017 15:26:46 CDT Left message for patient's mom to return call. Addendum by VANE ALEXANDER on March 10, 2017 12:33:49 CDT Lilo Ramirez (mom) called back again - she will be off work at 1:45 so call back after that please. [phone] Addendum by VANE ALEXANDER on March 10, 2017 10:07:55 CDT Lilo Ramirez (mom) returned call - best time to reach her today is 12:30 - 1:00 (during her lunch break) - otherwise leave a message and she will try back again when she can. [phone] Addendum by TAMARA FONTANA LPN on March 10, 2017 09:54:36 CDT Left message to return call. From: DICKSON JOHNSON PA-C To: FADI Johnson Nurse; Sent: 03/09/2017 21:46:18 CDT Show up: 03/09/2017 21:45:00 CDT Subject: Results Notification Please let the patient know that her culture grew out mixed ranjan which means that the urine abnormalities were more likely due to contamination than from infection. If sheis still having symptoms thenshe may return to consider other testing including vaginal swabs for yeast, overgorwth of vaginal bacteria or other infections Results: Date Result Type Ind Result Name MBO Review Culture Urine Source: [facility] POWERCHART Document Id: [id number] Miscellaneous - Tamara Fontana, LRodneyP.N. - 03/03/2017 2:54 PM CDT Pediatric Product Sales Engineer Intake/History Pediatric Product Sales Engineer Intake/History Entered On: 03/03/2017 14:57 CDT Performed On: 03/03/2017 14:54 CDT by TAMARA FONTANA LPN Intake Chief Complaint : possible UTI, buring during urination and frequency for past 2 weeks, also would like her right great toe looked at Temperature Core : 37 DegC(Converted to: 98.6 DegF) Peripheral Pulse Rate : 68 /min Respiratory Rate : 16 /min Systolic Blood Pressure : 122 mmHg Diastolic Blood Pressure : 64 mmHg NIBP Mean : 83 mmHg BP Location : Left upper extremity Actual Weight : 65.5 kg(Converted to: 144 lb 6 oz) Weight Source : Standing scale Dosing Weight Clinic : 65.5 kg TAMARA FONTANA LPN - 03/03/2017 14:54 CDT General Info Information Given By : Patient, Mother Languages : Hong Konger Is Patient Female and 13-50 no hysterectomy : Yes Status : Patient denies Are you ? : No TAMARA FONTANA MILITARY LOGISTICS SPECIALIST - 03/03/2017 14:54 CDT Subjective Pain Symptoms : No TAMARA FONTANA MILITARY LOGISTICS SPECIALIST - 03/03/2017 14:54 CDT Dependent Habits Exposure to Tobacco Smoke : Care provider denies smoking in home Smoking Status : Never smoker Tobacco 2A : No Tobacco Use/Currently Using : No Tobacco Use/Last 30 Days : No Tobacco Use/Last 12 months : No TAMARA FONTANA MILITARY LOGISTICS SPECIALIST - 03/03/2017 14:54 CDT Source: [facility] POWERCHART Document Id: [id number] CDT!28 documented in this encounter Plan of Treatment Not on filedocumented as of this encounter Procedures Procedure Name Priority Date/Time Associated Diagnosis Comme nts BACTERIAL CULTURE, Routine 03/03/2017 3:45 PM Res ults for this AEROBIC, URINE CDT procedure are in the results section. URINALYSIS, Routine 03/03/2017 3:15 PM Results f or this MIDSTREAM, WITH CDT procedure ar e in CULTURE IF the results INDICATED section. documented in this encounter Results Bacterial Culture, Aerobic, Urine (03/03/2017 3:45 PM CDT) [facility] gist Method Time Signature Bacterial POWERCHART Culture, Aerobic, Urine HXFinal Mixed ranjan. No POWERCHART further studies unless [facility]. [facility] Microbiology laboratory [phone]. Specimen Anatomical Collection Method Collection Time Receive d Time (Source) Location / / Volume Laterality Urine, First 03/03/2017 3:45 PM 7 3:45 Voided CDT PM CDT Dickson Collins P.A.-C. LAB MICROBIOLOGY - GENERAL O RDERABLES Performing Organization Address City/State/ZIP Code Phon e Number POWERCHART POWERCHART NA (ABNORMAL) Urinalysis, Midstream, with culture if indicated (03/03/2017 3:15 PM CDT) athologist Signature Clarity Clear Clear POWERCHART HXUr Color Yellow Colorless POWERCHART Specific <=1.005 POWERCHART [place], POCT, U Comment: Reference Range Specific [place]: 1.000-1.035 pH, POCT, Urine 6.0 <5.0 POWERCHART Comment: Reference Range pH: 5.0-8.0 Protein, Ur, Dip Negative Negative MGDL POWERCHAR T Glucose Negative Negative MGDL POWERCHART Ketones, QL(U) Negative Negative MGDL POWERCHART HXBILIRUBIN Negative Negative POWERCHART HXBLOOD Trace (A) Negative POWERCHART Leukocyte Esterase Trace (A) Negative POWERCHART HXNITRITE Negative Negative POWERCHART Urobilinogen 0.2 0.2 MGDL POWERCHART Comment: Reference Range Urobilinogen: 0.2-1.0 mg/dL HXUR WBC. 4-10 None Seen HPF POWERCHART HXUR RBC. Occ-2 None Seen HPF POWERCHART Squamous Epithelial 4-10 (A) None Seen HPF POWERC THURMAN HXUR Bacteria, Present (A) None Seen POWERCHART Specimen (Source) Anatomical Collection Method Collection Time Re ceived Time Location / / Volume Laterality Urine, First 03/03/2017 3:15 PM Voided CDT Dickson Collins P.A.-C. LAB URINE ORDERABLES Performing Organization Address City/State/ZIP Code Phon e Number POWERCHART POWERCHART NA documented in this encounter Visit Diagnoses Not on filedocumented in this encounter Care Teams Taping Foreman Relationship Specialty Start Date End Date Mer Encarnacion, DUSTY, C.N.P. PCP - General 02/04/17 03/06/[address] [place] [phone] documented as of this encounter
--- OUTSIDE RECORDS SUMMARY | 2022-04-05 14:30 | XMS_ITS | Encounter Summary ---
:2000 Author Organization [facility] Address [address] [place] [address] Care Team Providers Name Role Phone Mary Farr M.D. Primary Care Provider Encounter Details Date Type Department Care Team Description 01/27/2017 Hospital Encounter HX [facility] FAMILYPRA Kecia Garcia APRN, C.N.P. [address] [place], [place] [phone] (Wo rk) 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 [...] - Inhaled Oxygen Concentration - - Weight 64.6 kg (142 lb 6.7 oz) 01/27/2017 3:58 PM CDT Height 164.5 cm (5' 4.76) 01/27/2017 3:58 PM CDT Body Mass Index 23.87 01/27/2017 3:58 PM CDT Body Mass Index Percentile 80.11 % 01/27/2017 3:58 PM CD T Growth Chart: CDC (Girls, 2-20 Years) documented in this encounter H&P Notes Kecia Garcia APRN, C.N.P. - 01/27/2017 4:12 PM CDT 16 year well child exam CHIEF COMPLAINT/REASON FOR VISIT 16 year old well child check. Wants to discuss control options. HISTORY OF PRESENT ILLNESS Amairani is here with her mom for 16 year well-child exam. She is interested in discussing options for control. She has been sexually active in the past. She will do a urine chlamydia screen. [employer] [place] in school, not sure if she wants to go to college. 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 MEDICATIONS No active medications ALLERGIES NKA PAST MEDICAL HISTORY Chronic Allergic Rhinitis, Cause Unspecified Hearing loss L, low tone Myopia Pectus Excavatum Historical No historical problems PROCEDURES/SURGICAL HISTORY Removal impacted cerumen (separate procedure), 1 or both ears (05/28/2010), Ventilating tube removal requiring general anesthesia.. (05/28/2010), Tympanostomy (requiring insertion of ventilating tube), general anesthesia.. (04/18/2008), Repair umbilical hernia, age 5 years or older; reducible.. (2006), Tonsillectomy and adenoidectomy; younger than age 12.. (2006), Tympanostomy (requiring insertion of ventilating tube), general anesthesia.. (2003). SOCIAL HISTORY Date Time: 01/27/2017 15:58 Tobacco: Smoking Status: Never smoker Exposure: Care provider denies smoking in home Alcohol: Use: No Results Found Recreational Drugs: Use: No Results Found Type: No Results Found FAMILY HISTORY Mother:Positive: Dyslexia Grandfather:Positive: Coronary artery disease SYSTEMS REVIEW DENTAL: Up to date in dental care. EYES: Normal vision with corrective lenses. EARS, NOSE, THROAT: No chronic ear or throat problems. Quiet nasal breathing. No snoring. SKIN: No rashes. No large or unusual nevi. RESPIRATORY: No chronic cough or recurrent wheezing. HEART: No murmurs or chest pain. Normal stamina. GASTROINTESTINAL: No recurrent abdominal pain. Regular bowel movements without constipation. GENITOURINARY: No enuresis. No voiding problems. MUSCULOSKELETAL: No weakness or pain in extremities. No joint problems. NEUROLOGIC: No chronic headaches. Normal coordination. ENDOCRINE: No polydipsia or polyuria, normal heat and cold tolerance. SPINE: No back or neck pain. PSYCHIATRIC: Generally p ositive moods and social skills. VITAL SIGNS T: 36.8 ??C (Core) HR: 80 RR: 16 BP: 110 / 68 HT: 164.5 cm WT: 64.60 kg BMI: 23.87 PHYSICAL EXAMINATION GENERAL: Well-developed, well-nourished female in no acute distress. SKIN: Normal color. No birthmarks. HEAD: Normocephalic. ENT: Tympanic membranes are clear bilaterally. Nares clear. Throat clear. Neck is supple. LYMPH NODES: No cervical, axillary or inguinal adenopathy. THYROID: No thyromegaly. BREASTS: No tenderness with breast palpation. No nipple discharge. No retraction. HEART: Regular rate and rhythm. S1 and S2, no murmurs. LUNGS: Clear to auscultation bilaterally. Regular respiratory rate and effort. ABDOMEN: Soft and nontender. No hepatosplenomegaly. GENITALIA: Normal female genitalia. SPINE: Normal range of motion. GAIT: Walks with a normal gait. NEURO: Deep tendon reflexes 2+ and symmetrical. IMPRESSION/REPORT/PLAN Development Age Appropriate (WCC) 29 Day-17 Year Healthy 60 year old with normal growth and development. See Child and Teen Checkup form scanned in the Electronic Health Record. PSC Developmental screening tool utilized. Development appears normal. Screening tool scanned in the Electronic Health Record. Age appropriate anticipatory guidance and safety issues discussed. Immunizations reviewed and up to date. Return for well child exam in one year. Ordered: Child & Teen Checkup Charge Developmental Testing ([place]) Charge - 77801 OV Est Pt Prev Svc [id number] Encounter for screening for infections with a predominantly sexual mode of transmission Ordered: Chlamydia by Nucleic Acid Amp GC by Nucleic Acid Amp Management Contraception Prescription control options reviewed including oral contraceptive pills, Depo Provera injection, Nuva Ring, Mirena IUD and Nexplanon. She is interested in oral contraceptive pills. Prescription provided. She will start them on the first Tuesday after her next period. She will use a back up method for the first month. Advised to use condoms for STI protection. We reviewed what to do if she misses a pill. Risks of smoking discussed. Orders: desogestrel-ethinyl estradiol, 1 tab(s), PO, Daily, # 84 tab(s), 3 Refill(s), Maintenance, Pharmacy: [facility] [id number] Electronically Signed By: KECIA GARCIA APRN, CNP On: 01/27/2017 04:39 PM Source: [facility] POWERCHART Document Id: [id number] documented in this encounter Procedure Notes Ara Lange L.P.N. - 01/27/2017 4:16 PM CDT Vision Testing Vision Testing Entered On: 01/27/2017 16:16 CDT Performed On: 01/27/2017 16:16 CDT by ARA LANGE LPN Vision Testing Eye, Right with Correction : 20/25 Eye, Left w/Correction : 20/20 ARA LANGE LPN - 01/27/2017 16:16 CDT Source: [employer] Document Id: [id number] CDT!4 Ara Lange L.P.N. - 01/27/2017 4:14 PM CDT Hearing Point of Care Testing - Audiometer Hearing Point of Care Testing - Audiometer Entered On: 01/27/2017 16:16 CDT Performed On: 01/27/2017 16:14 CDT by ARA LANGE LPN Hearing Point of Care Testing - Audiometer Left Ear Hearing POC Test Grid Left Ear 20 db Left Ear 25 db 500 Hz : Response 1000 Hz : Response 2000 Hz : Response 4000 Hz : Response ARA LANGE LPN - 01/27/2017 16:14 CDT ARA LANGE LPN - 01/27/2017 16:14 CDT Right Ear Hearing POC Test Grid Right Ear 20 db Right Ear 25 db 500 Hz : Response 1000 Hz : Response 2000 Hz : Response 4000 Hz : Response ARA LANGE LPN - 01/27/2017 16:14 CDT ARA LANGE LPN - 01/27/2017 16:14 CDT Source: [employer] Document Id: [id number] CDT!16 documented in this encounter Nursing Notes Kecia Garcia APRN, C.N.P. - 01/27/2017 4:28 PM CDT Ambulatory Patient Education The following Patient Education Materials have been given to the patient: Patient Education Materials: Pediatrics Well-Child Checkup: 14-18 Years Pediatrics Well-Child Checkup: 14-18 Years During the teen years, its important to keep having yearly checkups. Your teen may be embarrassed about having a checkup. Reassure your teen that the exam is normal and necessary. Also be aware that the healthcare provider may ask to talk with your child without you in the exam room. Stay involved in your teens life. Make sure your teen knows youre always there when he or she needs to talk. School and Social Issues Here are some topics you, your teen, and the healthcare provider may want to discuss during this visit: ?? School performance. How is your child doing in school? Is homework finished on time? Does your child stay organized? These are skills you can help with. Keep in mind that a drop in school performance can be a sign of other problems. ?? Friendships. Do you like your nazia friends? Do the friendships seem healthy? Make sure to talk to your teen about who his or her friends are and how they spend time together. Peer pressure can be a problem among teenagers. ?? Life at home. How is your nazia behavior? Does he or she get along with others in the family? Ishe or she respectful of you, other adults, and authority? Does your child participate in family events, or does he or she withdraw from other family members? ?? Risky behaviors. Many teenagers are curious about drugs, alcohol, smoking, and sex. Talk openly about these issues. Answer your nazia questions, and dont be afraid to ask questions of your own. If youre not sure how to approach these topics, talk to the healthcare provider for advice. Puberty Your teen may still be experiencing some of the changes of puberty, such as: ?? Acne and body odor. Hormones that increase during puberty can cause acne (pimples) on the face and body. Hormones can also increase sweating and cause a stronger body odor. ?? Body changes. The body grows and matures during puberty. Hair will grow in the pubic area and on other parts of the body. Girls grow breasts and menstruate (have monthly periods). A boys voice changes, becoming lower and deeper. As the penis matures, erections and wet dreams will start to happen. Talk to your teen about what to expect, and help him or her deal with these changes when possible. ?? Emotional changes. Along with these physical changes, youll likely notice changes in your teens personality. He or she may develop an interest in dating and becoming more than friends with other kids. Also, its normal for your teen to be linares. Try to be patient and consistent. Encourage conversations, even when he or she doesnt seem to want to talk. No matter how your teen acts, he or she still needs a parent. Nutrition and Exercise Tips Your teenager likely makes his or her own decisions about what to eat and how to spend free time. You cant always have the final say, but you can encourage healthy habits. Your teen should: ?? Get at least 30-60 minutes of activity every day. This time can be broken up throughout the day. After-school sports, dance or martial arts classes, riding a bike, or even walking to school or a friends house counts as activity. ?? Limit screen time to 1-2 hours each day. This includes time spent watching TV, playing video games, using the computer, and texting. If your teen has a TV, computer, or video game console in the bedroom, consider replacing it with a music player. ?? Eat healthy. Your child should eat fruits, vegetables, lean meats, and whole grains every day. Less healthy foods-like english fries, candy, and chips-should be eaten rarely. Some teens fall into thetrap of snacking on junk food and fast food throughout the day. Make sure the kitchen is stocked with healthy options for after-school snacks. If your teen does choose to eat junk food, consider makinghim or her buy it with his or her own money. ?? Eat 3 meals a day. A lot of kids skip breakfast and even lunch. Not only is this unhealthy, it can also hurt school performance. Make sure your teen eats breakfast. Prepare a bag lunch to bring to school (or have your child make it). ?? Have at least one family meal with you each day. Busy schedules often limit time for sitting and talking. Sitting and eating together allows for family time. It also lets you see what and how your child eats. ?? Limit soda and juice drinks. A small soda is okay once in a while. But its no substitute for healthier drinks. Sports and juice drinks are no better. Most of the time, water and low-fat or nonfat milk are the best choices. Hygiene Tips ?? Teenagers should bathe or shower daily and use deodorant. ?? Let the healthcare provider know if you or your teen have questions about hygiene or acne. ?? Bring your teen to the dentist at least twice a year for teeth cleaning and a checkup. ?? Remind your teen to brush and floss his or her teeth before bed. Sleeping Tips During the teen years, sleep patterns may change. Many teenagers have a hard time falling asleep, which can lead to sleeping late the next morning. Here are some tips to help your teen get the rest he or she needs: ?? Encourage your teen to keep a consistent bedtime, even on weekends. Sleeping is easier when the body follows a routine. Dont let your teen stay up too late at night or sleep in too long in the morning. ?? Help your teen wake up, if needed. Go into the bedroom, open the blinds, and get your teen out ofbed-even on weekends or during school vacations. ?? Being active during the day will help your child sleep better at night. ?? Discourage use of the TV, computer, or video games for at least an hour before your teen goes to bed. (This is good advice for parents, too!) ?? Make a rule that cell phones must be turned off at night. Safety Tips ?? Set rules for how your teen can spend time outside of the house. Give your child a nighttime curfew. If your child has a cell phone, check in periodically by calling to ask where he or she is and what he or she is doing. ?? Make sure cell phones and portable music players are used safely and responsibly. Help your teen understand that it is dangerous to talk on the phone, text, or listen to music with headphones while he or she is riding a bike or walking outdoors, especially when crossing the street. ?? Constant loud music can cause hearing damage, so monitor your teens music volume. Many music players let you set a limit for how loud the volume can be turned up. Check the directions for details. ?? When your teen is old enough for a drivers license, encourage safe driving. Teach your teen to always wear a seat belt, drive the speed limit, and follow the rules of the road. Do not allow your teenager to text or talk on a cell phone while driving. (And dont do this yourself! Remember, you set anexample.) ?? Set rules and limits around driving and use of the car. If your teen gets a ticket or has an accident, there should be consequences. Driving is a privilege that can be taken away if your child doesnt follow the rules. ?? Teach your child to make good decisions about drugs, alcohol, sex, and other risky behaviors. Work together to come up with strategies for staying safe and dealing with peer pressure. And make sure your teenager knows he or she can always come to you for help. Tests and Vaccinations 0If you have a strong family history of high cholesterol, your teens blood cholesterol may be testedat this visit. Based on recommendations from the [place] [employer], at this visit your child may receive the following vaccinations: ?? Hepatitis B ?? Meningococcal ?? Tetanus, diphtheria, and pertussis Recognizing Signs of Depression Its normal for teenagers to have extreme mood swings. This is the result of their changing hormones. Its also just a part of growing up. But sometimes a teenagers mood swings are signs of a larger problem. If your teen is always depressed, you should be concerned. Othersigns of depression include: Use of drugs or alcohol Problems in school and at home Frequent episodes of running away Thoughts or talk of or suicide Withdrawal from family and friends Sudden changes in eating or sleeping habits Sexual promiscuity or unplanned Hostile behavior or rage Loss of pleasure in life Depressed teens can be helped with treatment. Talk to your nazia healthcare provider. Or check with your local mental health center, social service agency, or hospital. Assure your teen that his or her pain can be eased. Offer your love and support. And if your teen talks aboutdeath or suicide, seek help right away. Next checkup at: PARENT NOTES: ?? [phone] Alyssa Hammond, [address] [place] [address], [place] [address]. All rights reserved. This information is not intended as a substitute for professional medical care. Always follow your healthcare professional's instructions. This document has images extracted. Please consider using [employer] for all your patient education needs. Source: [facility] [employer] Document Id: [id number] documented in this encounter Miscellaneous Notes Miscellaneous - Debbie Orta, MICHAEL([facility]) - 01/27/2017 5:13 PM CDT *General Message Document Contains Addenda Addendum by KECIA GARCIA APRN, CNP on January 27, 2017 17:15:12 CDT From: KECIA GARCIA APRN, CNP To: DEBBIE ORTA; Sent: 01/27/2017 17:15:12 CDT Subject: RE: *General Message done From: DEBBIE ORTA To: KECIA GARCIA APRN, CNP; Sent: 01/27/2017 17:13:00 CDT Subject: *General Message Patient unable to void. Sent cup home with patient to collect. GC/Chlam canceled. Please send new order to queue. [facility] Document Id: [id number] Miscellaneous - Ara Lange L.P.N. - 01/27/2017 4:44 PM CDT PHQ-9 - Teens PHQ-9 - Teens Entered On: 01/27/2017 16:44 CDT Performed On: 01/27/2017 16:44 CDT by ARA LANGE LPN PHQ-9 - Teens Feeling down, depressed, or hopeless : Not at all Little interest or pleasure in doing things : Not at all Trouble falling or staying asleep, or sleeping too much : Not at all Poor appetite or overeating : Not at all Feeling tired or having little energy : Not at all Feeling bad about yourself or that you are a failure : Not at all Trouble concentrating on things : Not at all Moving or speaking slowly; restless or fidgety : Not at all Thoughts that you would be better off /hurting self : Not at all PHQ-9 Score for Teens : 0 Depressed or sad most days : No Problems make work, home, or dealing with others : Not difficult at all Serious thoughts about ending your life : No Ever try to kill yourself : No ARA LANGE LPN - 01/27/2017 16:44 CDT Source: [employer] Document Id: [id number] CDT!16 Miscellaneous - Kecia Garcia APRN, C.N.P. - 01/27/2017 4:28 PM CDT Ambulatory Patient Summary [facility] [address] [place] [phone] Visit Information Name: AMAIRANI NAQVI [facility] Number: [id number] Current Date: 01/27/2017 16:28:23 Physicians Attending Provider: KECIA GARCIA APRN HYDRAULIC PRESS IN OPERATOR Primary Care Provider: KECIA GARCIA APRN HYDRAULIC PRESS IN OPERATOR AMAIRANI NAQVI has been given the following list of [...] Take Indications/Special Instructions/Comments/Notes for Patient Medication Changes/Routing desogestrel-ethinyl estradiol (Reclipsen 0.15 mg-0.03 mg oral tablet) 1 Tablet(s), Oral, once a day New Routed to [address] [address] Stop Taking the Following Medications: Medication list as of 01-27-17 16:28 Attention: If you have any medications at home that are not on this list, DO NOT take them until youcontact your provider for clarification. Give a copy of your medication list to your primary care provider. Update your medication list any time medications or doses are changed and carry your medication list at all times in case of emergency. Electronically Signed By: KECIA GARCIA APRN, CNP Signed On:27-JAN-2017 16:28:05 Your Allergies & Intolerances Substance Reaction Symptoms Category Comments No Known Allergies Drug Your Problem List Problem Status Onset Comments Allergic Rhinitis, Cause Unspecified Active 04/10/2010 Myopia Active Pectus Excavatum Active Hearing loss L, low tone Active 03/15/2013 Management Contraception Prescription Active Your Upcoming Appointments Date Time Location Provider No Appointments found Attention: Contact your local Clinic if further appointment detail needed. Well-Child Checkup: 14-18 Years During the teen years, its important to keep having yearly checkups. Your teen may be embarrassed about having a checkup. Reassure your teen that the exam is normal and necessary. Also be aware that the healthcare provider may ask to talk with your child without you in the exam room. Stay involved in your teens life. Make sure your teen knows youre always there when he or she needs to talk. School and Social Issues Here are some topics you, your teen, and the healthcare provider may want to discuss during this visit: ?? School performance. How is your child doing in school? Is homework finished on time? Does your child stay organized? These are skills you can help with. Keep in mind that a drop in school performance can be a sign of other problems. ?? Friendships. Do you like your nazia friends? Do the friendships seem healthy? Make sure to talk to your teen about who his or her friends are and how they spend time together. Peer pressure can be a problem among teenagers. ?? Life at home. How is your nazia behavior? Does he or she get along with others in the family? Ishe or she respectful of you, other adults, and authority? Does your child participate in family events, or does he or she withdraw from other family members? ?? Risky behaviors. Many teenagers are curious about drugs, alcohol, smoking, and sex. Talk openly about these issues. Answer your nazia questions, and dont be afraid to ask questions of your own. If youre not sure how to approach these topics, talk to the healthcare provider for advice. Puberty Your teen may still be experiencing some of the changes of puberty, such as: ?? Acne and body odor. Hormones that increase during puberty can cause acne (pimples) on the face and body. Hormones can also increase sweating and cause a stronger body odor. ?? Body changes. The body grows and matures during puberty. Hair will grow in the pubic area and on other parts of the body. Girls grow breasts and menstruate (have monthly periods). A boys voice changes, becoming lower and deeper. As the penis matures, erections and wet dreams will start to happen. Talk to your teen about what to expect, and help him or her deal with these changes when possible. ?? Emotional changes. Along with these physical changes, youll likely notice changes in your teens personality. He or she may develop an interest in dating and becoming more than friends with other kids. Also, its normal for your teen to be linares. Try to be patient and consistent. Encourage conversations, even when he or she doesnt seem to want to talk. No matter how your teen acts, he or she still needs a parent. Nutrition and Exercise Tips Your teenager likely makes his or her own decisions about what to eat and how to spend free time. You cant always have the final say, but you can encourage healthy habits. Your teen should: ?? Get at least 30-60 minutes of activity every day. This time can be broken up throughout the day. After-school sports, dance or martial arts classes, riding a bike, or even walking to school or a friends house counts as activity. ?? Limit screen time to 1-2 hours each day. This includes time spent watching TV, playing video games, using the computer, and texting. If your teen has a TV, computer, or video game console in the bedroom, consider replacing it with a music player. ?? Eat healthy. Your child should eat fruits, vegetables, lean meats, and whole grains every day. Less healthy foods--like english fries, candy, and chips--should be eaten rarely. Some teens fall into the trap of snacking on junk food and fast food throughout the day. Make sure the kitchen is stocked with healthy options for after-school snacks. If your teen does choose to eat junk food, consider making him or her buy it with his or her own money. ?? Eat 3 meals a day. A lot of kids skip breakfast and even lunch. Not only is this unhealthy, it can also hurt school performance. Make sure your teen eats breakfast. Prepare a bag lunch to bring to school (or have your child make it). ?? Have at least one family meal with you each day. Busy schedules often limit time for sitting and talking. Sitting and eating together allows for family time. It also lets you see what and how your child eats. ?? Limit soda and juice drinks. A small soda is okay once in a while. But its no substitute for healthier drinks. Sports and juice drinks are no better. Most of the time, water and low-fat or nonfat milk are the best choices. Hygiene Tips ?? Teenagers should bathe or shower daily and use deodorant. ?? Let the healthcare provider know if you or your teen have questions about hygiene or acne. ?? Bring your teen to the dentist at least twice a year for teeth cleaning and a checkup. ?? Remind your teen to brush and floss his or her teeth before bed. Sleeping Tips During the teen years, sleep patterns may change. Many teenagers have a hard time falling asleep, which can lead to sleeping late the next morning. Here are some tips to help your teen get the rest he or she needs: ?? Encourage your teen to keep a consistent bedtime, even on weekends. Sleeping is easier when the body follows a routine. Dont let your teen stay up too late at night or sleep in too long in the morning. ?? Help your teen wake up, if needed. Go into the bedroom, open the blinds, and get your teen out ofbed--even on weekends or during school vacations. ?? Being active during the day will help your child sleep better at night. ?? Discourage use of the TV, computer, or video games for at least an hour before your teen goes to bed. (This is good advice for parents, too!) ?? Make a rule that cell phones must be turned off at night. Safety Tips ?? Set rules for how your teen can spend time outside of the house. Give your child a nighttime curfew. If your child has a cell phone, check in periodically by calling to ask where he or she is and what he or she is doing. ?? Make sure cell phones and portable music players are used safely and responsibly. Help your teen understand that it is dangerous to talk on the phone, text, or listen to music with headphones while he or she is riding a bike or walking outdoors, especially when crossing the street. ?? Constant loud music can cause hearing damage, so monitor your teens music volume. Many music players let you set a limit for how loud the volume can be turned up. Check the directions for details. ?? When your teen is old enough for a drivers license, encourage safe driving. Teach your teen to always wear a seat belt, drive the speed limit, and follow the rules of the road. Do not allow your teenager to text or talk on a cell phone while driving. (And dont do this yourself! Remember, you set anexample.) ?? Set rules and limits around driving and use of the car. If your teen gets a ticket or has an accident, there should be consequences. Driving is a privilege that can be taken away if your child doesnt follow the rules. ?? Teach your child to make good decisions about drugs, alcohol, sex, and other risky behaviors. Work together to come up with strategies for staying safe and dealing with peer pressure. And make sure your teenager knows he or she can always come to you for help. Tests and Vaccinations If you have a strong family history of high cholesterol, your teens blood cholesterol may be tested at this visit. Based on recommendations from the [place] [employer], at this visit your child may receive the following vaccinations: ?? Hepatitis B ?? Meningococcal ?? Tetanus, diphtheria, and pertussis Recognizing Signs of Depression Its normal for teenagers to have extreme mood swings. This is the result of their changing hormones. Its also just a part of growing up. But sometimes a teenagers mood swings are signs of a larger problem. If your teen is always depressed, you should be concerned. Othersigns of depression include: Use of drugs or alcohol Problems in school and at home Frequent episodes of running away Thoughts or talk of or suicide Withdrawal from family and friends Sudden changes in eating or sleeping habits Sexual promiscuity or unplanned Hostile behavior or rage Loss of pleasure in life Depressed teens can be helped with treatment. Talk to your nazia healthcare provider. Or check with your local mental health center, social service agency, or hospital. Assure your teen that his or her pain can be eased. Offer your love and support. And if your teen talks aboutdeath or suicide, seek help right away. Next checkup at: PARENT NOTES: ?? [phone] [facility], [address] [place] [address]. All rights reserved. This information is not intended as a substitute for professional medical care. Always follow your healthcare professional's instructions. Consider Using Patient Online Services Patient Online [...] if you dont have one. Go to [email or web address] and click on Create Your Account. Then, follow the directions to complete the online form. Youll be asked for your [facility] number which you can find at the top of this document. Your Goals/Additional instructions: This document has images extracted. Please consider using [employer] for all your patient education needs. Source: [facility] POWERCHART Document Id: [id number] Miscellaneous - Kecia Garcia APRN, C.N.P. - 01/27/2017 4:28 PM CDT Ambulatory Discharge Medication List [address] [id number] Visit Information Name: AMAIRANI NAQVI [facility] Number: [id number] Current Date: 01/27/2017 16:28:23 Attending Provider: KECIA GARCIA APRN, CNP Primary Care Provider: KECIA GARCIA APRN, CNP AMAIRANI NAQVI has been given the following list of medications: Your Medications It is important to take your medications as directed. Use a pill box or chart to help remind you to take your medications. Please let your doctor or nurse know if you have problems taking your medications. Medication/Strength How to Take Indications/Special Instructions/Comments/Notes for Patient Medication Changes/Routing desogestrel-ethinyl estradiol (Reclipsen 0.15 mg-0.03 mg oral tablet) 1 Tablet(s), Oral, once a day New Routed to [address] [address] Stop Taking the Following Medications: Medication list as of 01-27-17 16:28 Attention: If you have any medications at home that are not on this list, DO NOT take them until youcontact your provider for clarification. Give a copy of your medication list to your primary care provider. Update your medication list any time medications or doses are changed and carry your medication list at all times in case of emergency. Electronically Signed By: KECIA GARCIA APRN, CNP Signed On:27-JAN-2017 16:28:05 Additional Information: Source: [facility] POWERCHART Document Id: [id number] Miscellaneous - Ara Lange L.P.N. - 01/27/2017 3:58 PM CDT Pediatric Digital Analyst Intake/History Pediatric Digital Analyst Intake/History Entered On: 01/27/2017 16:01 CDT Performed On: 01/27/2017 15:58 CDT by ARA LANGE LPN Intake Chief Complaint : 16 year old well child check. Wants to discuss control options. Temperature Core : 36.8 DegC(Converted to: 98.2 DegF) Peripheral Pulse Rate : 80 /min Respiratory Rate : 16 /min Heart Rhythm : Regular Systolic Blood Pressure : 110 mmHg Diastolic Blood Pressure : 68 mmHg NIBP Mean : 82 mmHg BP Location : Left upper extremity Blood Pressure Cuff Size : Regular Height : 164.5 cm(Converted to: 5 ft 5 inch(es), 65 inch(es)) Actual Weight : 64.60 kg(Converted to: 142 lb 7 oz) Weight Source : Standing scale Dosing Weight Clinic : 64.6 kg Clinic BSA : 1.72 Body Mass Index : 23.87 kg/m2 ARA LANGE LPN - 01/27/2017 15:58 CDT General Info Mode of Arrival : Ambulatory Present in Room During Exam/Procedure : Mother Information Given By : Patient, Mother Preferred Communication Mode : Verbal Languages : Zambian Is Patient Female and 13-50 no hysterectomy : Yes Status : Patient denies Are you ? : No ARA LANGE LPN - 01/27/2017 15:58 CDT Subjective Pain Symptoms : No ARA LANGE LPN - 01/27/2017 15:58 CDT Dependent Habits Exposure to Tobacco Smoke : Care provider denies smoking in home Smoking Status : Never smoker Tobacco 2A : No Tobacco Use/Currently Using : No Tobacco Use/Last 30 Days : No Tobacco Use/Last 12 months : No ARA LANGE LPN - 01/27/2017 15:58 CDT Source: [facility] POWERCHART Document Id: [id number] CDT!36 documented in this encounter Plan of Treatment Not on filedocumented as of this encounter Visit Diagnoses Not on filedocumented in this encounter Care Teams Price Changer Relationship Specialty Start Date End Date Mary Farr M.D. PCP - General 01/20/17 02/03/17 documented as of this encounter
--- OUTSIDE RECORDS SUMMARY | 2022-04-05 14:30 | XMS_ITS | Encounter Summary ---
:2000 Author Organization [facility] Address [address] [place] [address] Care Team Providers Name Role Phone Unavailable Primary Care Provider Unavailable Encounter Details Date Type Department Care Team Description 09/15/2016 Hospital Encounter HX NO MAPPING Mireya Baugh M.D. [address] [place], [place] [phone] (Wo rk) 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 Tobacco Use Types Packs/Day Years Used Date Smoking Tobacco: Never Sex Assigned at Date Recorded Not on file documented as of this encounter Miscellaneous Notes Miscellaneous - Anastasia, Claudia Provider Ser - 09/15/2016 11:59 PM ESTATE PLANNER Coding Summary-Paper Based CODING DATE: 09/27/2016 FINAL [facility] STATUS: * Discharged to Home or Self Care [facility] DX: REASON FOR VISIT DX: FINAL DX: PRINCIPAL: J02.9 Acute pharyngitis, unspecified SECONDARY: PROCEDURES DOCTOR NAME DATE NOTE: The code number assigned matches the documented diagnosis and / or procedure in the patient's chart. However, the narrative phrase printed from the coding software may appear abbreviated, or result in slightly different terminology. Coded By: NIKHIL MARINO Date Saved: 09/27/2016 10:22 am Source: [employer] Document Id: [id number] documented in this encounter Plan of Treatment Not on filedocumented as of this encounter Visit Diagnoses Not on filedocumented in this encounter Additional Health Concerns Assessment Noted Time PHQ-9 Depression Total Score: 1 04/22/2014 12:46 PM CD T documented as of this encounter
--- OUTSIDE RECORDS SUMMARY | 2022-04-05 14:30 | XMS_ITS | Clinical Summary ---
:2000 Author Organization [facility] [place] [address] Care Team Providers Name Role Phone Tamara Wei MD Primary Care Provider [phone] Allergies No known active allergies Medications Medication Sig Dispensed Refills Start Date End Date Status pyridoxine (Vitamin Take 1 Tablet (50 90 Tablet 1 07/17/2021 Active B-6) 50 mg mg) by mouth once tabletIndications: daily. Nausea/vomiting in doxylamine (UNISOM) 25 Take 1-2 Tablets 60 Tablet 0 07/17/2021 Active mg tabletIndications: (25-50 mg) by Nausea/vomiting in mouth at bedtime if needed for Sleep. Active Problems Not on file Immunizations Name Administration Dates Next Due COVID-19 vaccine (Moderna 2020, 08/11/2020 100mcg/0.5mL) PFVICTOR MANUEL DTaP 03/04/2006, 03/15/2002, 03/13/2001, 01/11/2001, 2000 HIB PRP-T (ActHIB,Hiberix) 12/15/2001, 01/11/2001, 1 HIB-HepB (Comvax) 12/15/2001, 01/11/2001, 2000 HPV 9 (Gardasil 9) 11/16/2017 Hepatitis A (Peds) 03/15/2013, 01/28/2012 Hepatitis A, Unspecified 01/28/2012 Hepatitis B, Unspecified 12/15/2001, 01/11/2001, 2000 Hib Conjugate, Unspecified 12/15/2001, 01/11/2001, 1 Human Papilloma Virus Vaccine 04/22/2014, 03/15/2013, 2011 Inactivated Polio Vaccine 03/04/2006, 06/08/2001, 03/13/2001 , 01/11/2001, 2000 Influenza, IIV3 (Age 6-35 mos) 05/23/2018 Influenza, IIV4 09/15/2020, 05/17/2019 Influenza, IIV4 (=>6mos) MDV 09/15/2017 MMR 03/04/2006, 2001 Meningococcal Vaccine (Menactra) 01/28/2012 Pneumococcal Poly,23-Valent 12/15/2001, 01/11/2001, 11/08/19 (Pneumovax) Pneumococcal conj 7-Valent (Prevnar 7) 12/15/2001, 1, 2000 Polio Virus, Unspecified 03/04/2006 Tdap 01/28/2012 Varicella Vaccine 03/23/2007, 09/11/2003 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 Tobacco Use Types Packs/Day Years Used Date Never Smoker Smokeless Tobacco: Never Used Tobacco Cessation: Counseling Given: Yes Alcohol Use Standard Drinks/Week Comments Never 0 (1 standard drink = 0.6 oz pure alcoho l) Alcohol Habits Answer Date Recorded How often do you have a drink containing alcohol? Never 02/03/2021 How many drinks containing alcohol do you have on a typical Not asked day when you are drinking? How often do you have six or more drinks on one occasion? No t asked Comment: Not asked Sex Assigned at Date Recorded Not on file Obstetrics History Para Term AB IAB SAB Ectopic Multiple Living Live Births 1 Date Outcome GA Total Labor/2nd/3rd Weight Sex Delivery Anes PTL Sury A 1 A5 Name Clin Labor Last Filed Vital Signs Vital Sign Reading Time Taken Comments Blood Pressure 118/60 07/17/2021 9:18 AM FAX MACHINE OPERATOR Pulse 109 07/17/2021 9:18 AM FAX MACHINE OPERATOR Temperature 36.4 ??C (97.5 ??F) 02/03/2021 3:05 PM CDT Respiratory Rate 14 02/03/2021 3:05 PM CDT Oxygen Saturation 99% 02/03/2021 3:05 PM CDT Inhaled Oxygen Concentration - - Weight 74.7 kg (164 lb 11.2 oz) 07/17/2021 9:18 AM FAX MACHINE OPERATOR Height 166 cm (5' 5.35) 07/17/2021 9:18 AM FAX MACHINE OPERATOR Body Mass Index 27.11 07/17/2021 9:18 AM FAX MACHINE OPERATOR Plan of Treatment Health Maintenance Due Date Last Done Comments Hepatitis C screening for 2018 age 18-79 COVID-19 vaccine series (3 - 02/05/2021 2020, 021 Booster for Moderna series) Chlamydia for age 16-24 03/19/2021 03/19/2020 Pap test for age 21-65 2021 Tetanus booster 01/27/2022 01/28/2012 Influenza for age 9-49 04/08/2022 09/15/2020, 05/17/2019, 09/15/2017 BMI (ht and wt on same day) 07/17/2022 07/17/2021, 02/04/20 21 for age 18+ Depression screening for age 1207/17/2022 07/17/2021 12+ Meningococcal series for age Aged Out 01/28/2012 No longer eligible 11-21 based on patient 's age to complete this topic Tdap Completed 01/28/2012 HPV series for age 9-26 Completed 11/16/2017, 04/22/2014, 03/15/2013, Additional history exists Results Not on filefrom Last 3 Months Insurance Payer Benefit Plan / Subscriber ID Effective Dates Phone Addre ss Type Group PREFERRED ONE PREFERRED ONE [id number] 2017-Present [address] [place] [address] MEDICAID [place] MEDICAID [id number] 2021-Presen [address] [address] [place] [address] Care Teams Body Artist Relationship Specialty Start Date End Date Tamara Wei MD PCP - General Family Practice 04/12/171999 [place] [address]
--- OUTSIDE RECORDS SUMMARY | 2022-04-05 14:31 | XMS_ITS | Encounter Summary ---
:2000 Author Organization [facility] Address [address] [place] [address] Care Team Providers Name Role Phone Unavailable Primary Care Provider Unavailable Encounter Details Date Type Department Care Team Description 09/05/2013 Hospital Encounter HX [facility] Sa manolo Farr M.D. [phone] (Wo rk) 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 Tobacco Use Types Packs/Day Years Used Date Smoking Tobacco: Never Assessed Sex Assigned at Date Recorded Not on file documented as of this encounter Last Filed Vital Signs Vital Sign Reading Time Taken Comments Blood Pressure - - Pulse - - Temperature - - Respiratory Rate - - Oxygen Saturation - - Inhaled Oxygen Concentration - - Weight 59 kg (130 lb 1.1 oz) 09/05/2013 8:24 AM DIRECTOR FIELD SERVICES Height - - Body Mass Index - - documented in this encounter Progress Notes Mary Farr M.D. - 09/05/2013 8:21 AM CST [id number] CHIEF COMPLAINT/REASON FOR VISIT Sore throat, cough, tactile feet. HISTORY OF PRESENT ILLNESS She got sick yesterday. She went to school but felt ill in the afternoon. She had tactile fever during the night, height not documented. She felt sweaty and chilly with the fever. She has a cough. She is here with her dad who says sometimes Amairani sounds wheezy. She complains of a sore throat and hervoice is mildly hoarse. No vomiting or diarrhea. She is drinking. Current medications, allergies, vital signs see EMR. PHYSICAL EXAMINATION GENERAL: Nose is stuffy and voice is mildly hoarse. SKIN: Numerous small acne me but otherwise free of acute rashes. ENT: Tympanic membranes normal. Nasal mucosa erythematous. Tonsils absent. The pharynx is injected, more so on the left. LYMPH NODES: No anterior or posterior cervical lymph node enlargement. HEART: Normal S1 and physiologically split S2 without murmurs. LUNGS: Clear to auscultation. No wheezes, rales or adventitious sounds. ABDOMEN: Soft and nondistended. No hepatosplenomegaly or masses. LABORATORY: Rapid strep test negative. IMPRESSION/REPORT/PLAN Viral illness. Last fever dispensing and measuring optician was 5 hours prior to the visit. May use ibuprofen or acetaminophenfor fever and discomfort. Best not to use true aspirin. The illness should run its course. Mary Farr M.D./ayaan Electronically Signed By: MARY FARR MD On: 09/06/2013 11:02 AM Source: [facility] [email or web address] Document Id: [id number] CTOR FIELD SERVICES documented in this encounter Miscellaneous Notes Miscellaneous - Mary Farr M.D. - 09/05/2013 10:18 AM CST Ambulatory Patient Summary [address] [address] Visit Information Name: AMAIRANI MARTINEZ [facility] Number: [id number] Current Date: 09/05/2013 10:18:56 Physicians Attending Provider: MARY FARR MD Primary Care Provider: VENUS WELLINGTON MD AMAIRANI MARTINEZ has been given the [...] Take Indications/Special Instructions/Comments/Notes for Patient Medication Changes/Routing Stop Taking the Following Medications: malathion topical (malathion 0.5% topical lotion) Medication list as of 09-05-13 10:18 Attention: If you have any medications at home that are not on this list, DO NOT take them until youcontact your provider for clarification. Give a copy of your medication list to your primary care provider. Update your medication list any time medications or doses are changed and carry your medication list at all times in case of emergency. Your Allergies & Intolerances Substance Reaction Symptoms Category Comments No Known Allergies Drug Your Problem List Problem Status Onset Comments Allergic Rhinitis, Cause Unspecified Active 04/10/2010 Myopia Active Pectus Excavatum Active Hearing loss L, low tone Active 03/15/2013 Your Upcoming Appointments Date Time Location Reason Provider No Appointments found Attention: Contact your local Clinic if further appointment detail needed. Your Goals/Additional instructions: Source: [facility] POWERCHART Document Id: [id number] CTOR FIELD SERVICES Miscellaneous - Mary Farr M.D. - 09/05/2013 10:18 AM CST Ambulatory Depart Summary [address] [address] Visit Information Name: AMAIRANI MARTINEZ [facility] Number: [id number] Visit Date: 09/05/2013 10:18:55 Attending Provider: MARY FARR MD Primary Care Provider: VENUS WELLINGTON MD AMAIRANI MARTINEZ has been given the following list of medications: Your Medications It is important to take your medications as directed. Use a pill box or chart to help remind you to take your medications. Please let your doctor or nurse know if you have problems taking your medications. Medication/Strength How to Take Indications/Special Instructions/Comments/Notes for Patient Medication Changes/Routing Stop Taking the Following Medications: malathion topical (malathion 0.5% topical lotion) Medication list as of 09-05-13 10:18 Attention: If you have any medications at home that are not on this list, DO NOT take them until youcontact your provider for clarification. Give a copy of your medication list to your primary care provider. Update your medication list any time medications or doses are changed and carry your medication list at all times in case of emergency. Additional Information: Source: [facility] POWERCHART Document Id: [id number] CTOR FIELD [employer] Kya - Mary Farr M.D. - 09/05/2013 8:52 AM CST School Excuse 05 September 2013 AMAIRANI MARTINEZ [address] [facility] [id number] Dear AMAIRANI MARTINEZ, You were examined in my office on: 09/05/2013 8:51 To return to school today: ( _ ) Yes ( _x ) No To return to regular activity: ( _ ) Yes ( _ ) No To have modified activity: ( _ ) Yes ( _ ) No As follows: ( _ ) No contact sports ( _ ) May do upper body activities ( _ ) May do lower body activities ( _ ) May do walking program ( _ ) No physical activity ( _ ) Other: _ Duration of activity restriction: ( _ ) Days ( _ ) Weeks ( _ ) Months ( _ ) Other: _ Physical Therapy referral: ( _ ) Yes ( _ ) No School Medication / Procedure Form completed: ( _ ) Yes ( _ ) Not necessary Notes: _ Seen for illness with fever, sore throat, cough. Should stay homr from school until free of fever for 24 hours. Sincerely, MARY FARR [address] [place] [address] Electronic Signature Electronically Signed By: MARY FARR MD On: 05 September 2013 This document has images extracted. Source: [facility] POWERCHART Document Id: [id number] Electronically signed by Anastasia [facility] Fishing Rod Assembler [id number] at 01/04/2017 6:58 AM CDT Kya - Amelie Christie L.P.NRodney - 09/05/2013 8:24 AM CST Pediatric Salon Supervisor Intake/History Pediatric Salon Supervisor Intake/History Entered On: 09/05/2013 8:28 DIRECTOR FIELD SERVICES Performed On: 09/05/2013 8:24 DIRECTOR FIELD SERVICES by AMELIE CHRISTIE Intake Chief Complaint : c/o fever, ST for a couple days Temperature Core : 37.2 DegC(Converted to: 99.0 DegF) Peripheral Pulse Rate : 96 /min (HI) Respiratory Rate : 20 /min Heart Rhythm : Regular Systolic Blood Pressure : 112 mmHg Diastolic Blood Pressure : 60 mmHg NIBP Mean : 77 mmHg BP Location : Left upper extremity Blood Pressure Cuff Size : Regular Actual Weight : 59 kg(Converted to: 130 lb 1 oz) Weight Source : Standing scale Dosing Weight Clinic : 59 kg PRATIK, AMELIE TRUJILLO - 09/05/2013 8:24 DIRECTOR FIELD SERVICES General Info Languages : Tunisian PRATIK AMELIE RONNIE - 09/05/2013 8:24 DIRECTOR FIELD SERVICES Subjective Pain Symptoms : No PRATIKAMELIE RONNIE - 09/05/2013 8:24 DIRECTOR FIELD SERVICES Dependent Habits Tobacco Use/Currently Using : No Exposure to Tobacco Smoke : Care provider denies smoking in home Smoking Status : Never smoker PRATIKAMELIE - 09/05/2013 8:24 DIRECTOR FIELD SERVICES Source: [facility] POWERCHART Document Id: [id number] DIRECTOR FIELD SERVICES!23 [employer] documented in this encounter Plan of Treatment Not on filedocumented as of this encounter Procedures Procedure Name Priority Date/Time Associated Diagnosis Comme nts RAPID STREP A Routine 09/05/2013 8:31 AM Results for this SCREEN DIRECTOR FIELD SERVICES procedure are i n the results section. RAPID STREP A Routine 09/05/2013 8:31 AM Results for this SCREEN DIRECTOR FIELD SERVICES procedure are i n the results section. documented in this encounter Results Rapid Strep A Screen (09/05/2013 8:31 AM DIRECTOR FIELD SERVICES) [facility] gist Method Time Signature HXRapid Strep POWERCHART Confirmation HXFinal Negative POWERCHART Specimen Anatomical Collection Method Collection Time Receive d Time (Source) Location / / Volume Laterality Throat 09/05/2013 8:31 AM 4 8:31 DIRECTOR FIELD SERVICES AM DIRECTOR FIELD SERVICES Mary Farr M.D. LAB MICROBIOLOGY - GENERAL O RDERABLES Performing Organization Address City/State/ZIP Code Phon e Number POWERCHART Rapid Strep A Screen (09/05/2013 8:31 AM DIRECTOR FIELD SERVICES) [facility] gist Method Time Signature HXStrep A POWERCHART Screen Rapid HXFinal Negative for POWERCHART Strep Group A by rapid screen. HXFinal Culture POWERCHART confirmation to follow. Specimen (Source) Anatomical Collection Method Collection Time Re ceived Time Location / / Volume Laterality Throat 09/05/2013 8:31 AM DIRECTOR FIELD SERVICES Mary Farr M.D. LAB MICROBIOLOGY - GENERAL O RDERABLES Performing Organization Address City/State/ZIP Code Phon e Number POWERCHART documented in this encounter Visit Diagnoses Not on filedocumented in this encounter
--- OUTSIDE RECORDS SUMMARY | 2022-04-05 14:31 | XMS_ITS | Encounter Summary ---
:2000 Author Organization [facility] Address [address] [place] [address] Care Team Providers Name Role Phone Unavailable Primary Care Provider Unavailable Encounter Details Date Type Department Care Team Description 07/06/[address] [facility] Tom Peoples M.D. [address] [place], [place] [address] (Wo rk) 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 Tobacco Use Types Packs/Day Years Used Date Smoking Tobacco: Never Assessed Sex Assigned at Date Recorded Not on file documented as of this encounter Last Filed Vital Signs Vital Sign Reading Time Taken Comments Blood Pressure - - Pulse - - Temperature - - Respiratory Rate - - Oxygen Saturation - - Inhaled Oxygen Concentration - - Weight 41.3 kg (91 lb 0.8 oz) 07/06/2011 1:40 PM DOCK LOADER Height 148.6 cm (4' 10.5) 07/06/2011 1:40 PM DOCK LOADER Body Mass Index 18.7 07/06/2011 1:40 PM DOCK LOADER Body Mass Index Percentile 68.89 % 07/06/2011 1:40 PM CS T Growth Chart: CDC (Girls, 2-20 Years) documented in this encounter Progress Notes Venus Peoples M.D. - 07/06/2011 12:00 AM CST [id number] CHIEF COMPLAINT/ REASON FOR VISIT Fever and sore throat HISTORY OF PRESENT ILLNESS Amairani is 10 1/2 years old and here with her mother. She has been sick for 2 days. She has some sore throat, a little bit of runny nose and a cough. She went to the nurse today and was found to have a temperature of 101. She was sent home. No headache or belly pain. No medications given today. CURRENT MEDICATIONS Loratadine tab p.r.n. allergy symptoms, currently not taking. ALLERGIES No known drug allergies. VITAL SIGNS WEIGHT: 41.3 kg TEMPERATURE: 37.5 HEART RATE: 86 RESPIRATORY RATE: 22 BLOOD PRESSURE: 108/56 PHYSICAL EXAM GENERAL: Comfortable, in no distress. SKIN: Evidence of picking at facial lesions. Some open comedones on the nose. No truncal rash. EYES: No injection or drainage. ENT: Ears: Tympanic membranes ross, shiny, pink bilaterally. Scarring seen on the left. Nose is clear. Mouth: Mucous membranes moist. Posterior pharynx with mild erythema. Tonsils are surgically absent. LYMPH NODES: No significant cervical lymphadenopathy. HEART: Regular rate and rhythm, S1-S2, without murmurs. LUNGS: Clear to auscultation bilaterally. IMPRESSION/REPORT/PLAN Acute upper respiratory infection. I think she has a viral respiratory infection associated with sore throat and recommend giving this some more time. KSL/glt Signed Venus Peoples M.D. Land Title Examiner Electronically Signed By: VENUS PEOPLES MD On: 07/08/2011 01:55 PM Source: [facility] MHSDOLBEYNONRADSYS Document Id: [id number] LOADER documented in this encounter Miscellaneous Notes Miscellaneous - Venus Peoples M.D. - 07/06/2011 1:59 PM CST Ambulatory Patient Summary [address] [id number] Visit Information Name: AMAIRANI MARTINEZ Current Date: 07/06/2011 13:59:48 Primary Care Provider: VENUS PEOPLES MD Your Medications Here is a list of your medications. It is important to take your medications as directed. Use a pillbox or chart to help remind you to take your medications. Please let your doctor or nurse know if you have problems taking your medications. Medication/Strength Dose Route Frequency Indications/Special Instructions/Comments loratadine (Loratadine Reditab 10 mg oral tablet, disintegrating) 10 mg Oral once a day Your Allergies & Intolerances Substance Reaction Symptoms Category Comments NKA Drug Your Problem List Problem Status Onset Comments Allergic Rhinitis, Cause Unspecified Active 04/10/2010 Myopia Active Pectus Excavatum Active Your Recommendations We want to make sure you get the tests, immunizations, and guidance you need to stay healthy. Here is a customized list of recommendations, based on information we have in your medical record. Your doctor may have additional recommendations for you, based on your personal medical history and risk factors. You can help us by calling us to make an appointment when you are due for your tests. Additional information regarding recommendations: Test/Treatment Last Done Next Due Additional Information No Health Maintenance records were found Your Upcoming Appointments Date Time Location Reason Provider No Appointments found Your Goals/Additional instructions: Source: [employer] Document Id: [id number] LOADER Miscellaneous - Venus Peoples M.D. - 07/06/2011 1:59 PM CST Ambulatory Depart Summary [address] [address] Visit Information Name: DONYA AMAIRANICHESTER NICOLELENNIE Current Date: 07/06/2011 13:59:47 Primary Care Provider: VENUS PEOPLES MD AMAIRANI MARTINEZ has been given the following list of medications: Your Medications It is important to take your medications as directed. Use a pill box or chart to help remind you to take your medications. Please let your doctor or nurse know if you have problems taking your medications. Medication/Strength Dose Route Frequency Indications/Special Instructions/Comments loratadine (Loratadine Reditab 10 mg oral tablet, disintegrating) 10 mg Oral once a day Additional Information: Source: [employer] Document Id: [id number] LOADER Miscellaneous - Chantell Sandoval - 07/06/2011 1:40 PM CST Pediatric Low Emission Automobile Designer Intake/History Pediatric Low Emission Automobile Designer Intake/History Entered On: 07/06/2011 13:43 DOCK LOADER Performed On: 07/06/2011 13:40 DOCK LOADER by CHANTELL UMANA Intake Chief Complaint : sent home from school, fever, sore throat, cough, runny nose Temperature Core : 37.5C(Converted to: 99.5DegF) Apical Heart Rate : 86/min Respiratory Rate : 22/min Systolic Blood Pressure : 108mmHg Diastolic Blood Pressure : 56mmHg NIBP Mean : 73mmHg BP Location : Left upper extremity Height : 148.6cm(Converted to: 4ft 11inch(es), 58.50inch(es)) Actual Weight : 41.3kg(Converted to: 91lb 1oz) Weight Source : Standing scale Dosing Weight Clinic : 41.30kg Clinic BSA : 1.31 Body Mass Index : 18.70kg/m2 CHANTELL UMANA - 07/06/2011 13:40 DOCK LOADER Subjective Pain Symptoms : No CHANTELL UMANA - 07/06/2011 13:40 DOCK LOADER Dependent Habits Tobacco Use/Currently Using : No Smoking Status : Never smoker CHANTELL UMANA - 07/06/2011 13:40 DOCK LOADER Allergy Allergies (Active) NKA Estimated Onset Date: Unspecified ; Created By: CHANTELL UMANA; Reaction Status: Active ; Category: Drug ; Substance: NKA ; Type: Allergy ; Updated By: CHANTELL UMANA; Reviewed Date: 07/06/201113:39 DOCK LOADER Source: [facility] POWERCHART Document Id: [id number] DOCK LOADER!21 LOADER documented in this encounter Plan of Treatment Not on filedocumented as of this encounter Visit Diagnoses Not on filedocumented in this encounter
--- OUTSIDE RECORDS SUMMARY | 2022-04-05 14:31 | XMS_ITS | Encounter Summary ---
:2000 Author Organization [facility] Address [address] [place] [address] Care Team Providers Name Role Phone Unavailable Primary Care Provider Unavailable Encounter Details Date Type Department Care Team Description 09/23/2014 Hospital Encounter HX [facility] Tha Mccrary M.D. [address] [place] [phone] (Wo rk) 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 Tobacco Use Types Packs/Day Years Used Date Smoking Tobacco: Never Assessed Sex Assigned at Date Recorded Not on file documented as of this encounter Miscellaneous Notes Miscellaneous - Gentry Cruz M.D. - 09/23/2014 9:47 AM CST Ambulatory Patient Summary [facility] [address] [place] [id number] Visit Information Name: AMAIRANI MARTINEZ [facility] Number: [id number] Current Date: 09/23/2014 09:47:59 Physicians Attending Provider: GENTRY CRUZ MD Primary Care Provider: VENUS WELLINGTON MD [...] the Following Medications: Medication list as of 09-23-14 09:47 Attention: If you have any medications at home that are not on this list, DO NOT take them until youcontact your provider for clarification. Give a copy of your medication list to your primary care provider. Update your medication list any time medications or doses are changed and carry your medication list at all times in case of emergency. Electronically Signed By: GENTRY CRUZ MD Signed On:23-SEP-2014 09:47:56 Your Allergies & Intolerances Substance Reaction Symptoms Category Comments No Known Allergies Drug Your Problem List Problem Status Onset Comments Allergic Rhinitis, Cause Unspecified Active 04/10/2010 Myopia Active Pectus Excavatum Active Hearing loss L, low tone Active 03/15/2013 Your Upcoming Appointments Date Time Location Provider No Appointments found Attention: Contact your local Clinic if further appointment detail needed. Your Goals/Additional instructions: Source: [facility] [employer] Document Id: [id number] IALTY DEVELOPMENT CONSULTANT Miscellaneous - Gentry Cruz M.D. - 09/23/2014 9:47 AM CST Ambulatory Discharge Medication List [address] [id number] Visit Information Name: AMAIRANI MARTINEZ [facility] Number: [id number] Visit Date: 09/23/2014 09:47:58 Attending Provider: GENTRY CRUZ MD Primary Care Provider: VENUS WELLINGTON MD [...] the Following Medications: Medication list as of 09-23-14 09:47 Attention: If you have any medications at home that are not on this list, DO NOT take them until youcontact your provider for clarification. Give a copy of your medication list to your primary care provider. Update your medication list any time medications or doses are changed and carry your medication list at all times in case of emergency. Electronically Signed By: GENTRY CRUZ MD Signed On:23-SEP-2014 09:47:56 Additional Information: Source: [facility] POWERCHART Document Id: [id number] IALTY DEVELOPMENT CONSULTANT documented in this encounter Plan of Treatment Not on filedocumented as of this encounter Visit Diagnoses Not on filedocumented in this encounter Additional Health Concerns Assessment Noted Time PHQ-9 Depression Total Score: 1 04/22/2014 12:46 PM CD T documented as of this encounter
--- OUTSIDE RECORDS SUMMARY | 2022-04-05 14:31 | XMS_ITS | Encounter Summary ---
:2000 Author Organization [facility] Address [address] [place] [address] Care Team Providers Name Role Phone Mary Farr M.D. Primary Care Provider Encounter Details Date Type Department Care Team Description 09/23/[address] [facility] Gentry Russell M.D. [address] [place], [place] [phone] (Wo rk) 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 Tobacco Use Types Packs/Day Years Used Date Smoking Tobacco: Never Assessed Sex Assigned at Date Recorded Not on file documented as of this encounter Progress Notes Gentry Russell M.D. - 09/23/2014 10:15 AM CST Contact Lens Exam IMPRESSION / REPORT / PLAN #1 Myopia, both eyes. Good contact lens fit. Plan: Trial contacts. F/u one week. jayne [facility] Reports - EYECL Id: [id number] Status: Fnl Electronically signed by Anastasia [facility] Ophthalmology Notes [id number] at 01/26/2017 12:28 PM CDT documented in this encounter Plan of Treatment Not on filedocumented as of this encounter Visit Diagnoses Not on filedocumented in this encounter Additional Health Concerns Assessment Noted Time PHQ-9 Depression Total Score: 1 04/22/2014 12:46 PM CD T documented as of this encounter Care Teams Air Hammer Operator Relationship Specialty Start Date End Date Mary Farr M.D. PCP - General 01/20/17 02/03/17 documented as of this encounter
--- OUTSIDE RECORDS SUMMARY | 2022-04-05 14:31 | XMS_ITS | Encounter Summary ---
:2000 Author Organization [facility] Address [address] [place] [address] Care Team Providers Name Role Phone Unavailable Primary Care Provider Unavailable Encounter Details Date Type Department Care Team Description 09/22/2012 Hospital Encounter HX [facility] David Campuzano M.D. [address] [place], [place] [phone] (Wo rk) 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 Tobacco Use Types Packs/Day Years Used Date Smoking Tobacco: Never Assessed Sex Assigned at Date Recorded Not on file documented as of this encounter Progress Notes Nneka Mcnair - 09/22/2012 10:22 AM CST Eye Services Clinic Exam [facility] Exam Entered On: 09/22/2012 10:45 RETAIL KEY HOLDER Performed On: 09/22/2012 10:22 RETAIL KEY HOLDER by NNEKA MCNAIR Chief Complaint and History Chief Complaint : Routine exam (Comment: NEW CE. [NNEKA MCNAIR - 09/22/2012 10:22 RETAIL KEY HOLDER] ) Pain Symptoms : No Smoking Status : Never smoker Comment : HERE WITH MOTHER. STATES ---- 3 MOS HX OF H/A'S. 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 GOOD GEN HEALTH. ROS--WNL. NNEKA MCNAIR - 09/22/2012 10:22 RETAIL KEY HOLDER Vision Testing Right Eye Vision Testing : With glasses - primary, 20/25, -1 Left Eye Vision Testing : With glasses - primary, 20/30 (Comment: PH25 [NNEKA MCNAIR - 09/22/2012 10:22 RETAIL KEY HOLDER] ) Near Vision Right Eye : With glasses - primary, J-3 (Comment: -2 [NATALIYA MCNAIRNA Tom - 09/22/2012 10:22 RETAIL KEY HOLDER] ) Near Vision Left Eye : With glasses - primary, J-1 NATALIYA MCNAIRNA Tom - 09/22/2012 10:22 RETAIL KEY HOLDER Refraction Current Glasses Rx Grid Glasses/RE Glasses/LE Sphere : -3.00 -3.00 Prism : 1/2 BASE UP XUNATALIYAMARYELLEN Santos - 09/22/2012 10:22 RETAIL KEY HOLDER XUNATALIYANA Tom - 09/22/2012 10:22 RETAIL KEY HOLDER Right Eye Manifest Grid Date : 09/22/2012 RETAIL KEY HOLDER Performed by : Med fusion Sphere : -3.50 Visual Acuity Distance : 20/20 Visual Acuity Near : 20/20 XUNATALIYAMARYELLEN Santos - 09/22/2012 10:22 RETAIL KEY HOLDER Left Eye Manifest Grid Date : 09/22/2012 RETAIL KEY HOLDER Performed by : Tech Sphere : -3.50 Visual Acuity Distance : 20/20 Visual Acuity Near : 20/20 XUNATALIYAMARYELLEN Santos - 09/22/2012 10:22 RETAIL KEY HOLDER Ocular Testing EOMS : Normal Comment : 6 TO 3 6 TO 3 -MG Pupils : PERRLA Confrontation Lea : RE Normal, LE Normal NATALIYA MCNAIRNA Tom - 09/22/2012 10:22 RETAIL KEY HOLDER Eye Drops Exam Date of Last Eye Exam : 09/22/2012 RETAIL KEY HOLDER Child Mix Eye Drop Eye : Both eyes Child Mix Eye Drop Amount : One drop Child Mix Eye Drop Time : 10:43 RETAIL KEY HOLDER Child Mix Eye Drop Comment : PERMISSION GIVEN BY MOTHER. NATALIYA MCNAIRNA Tom - 09/22/2012 10:22 RETAIL KEY HOLDER Source: [facility] POWERCHART Document Id: [id number] [place] KEY HOLDER documented in this encounter H&P Notes Ping Rosario M.D. - 09/22/2012 10:01 AM CST [id number] Very pleasant patient who comes in today with myopia and hyperopia with headache. IMPRESSION / REPORT / PLAN We will see her back in 1 year, sooner if there are difficulties or problems. Everything appears to be doing very, very good. We will see her sooner if there are any difficulties or problems. Ping Rosario M.D./arnold DOCID: [id number] Electronically Signed By: PING ROSARIO MD On: 09/27/2012 07:52 AM Source: [facility] MHSDOLBEYNKAYLASYS Document Id: [id number] [place] KEY HOLDER documented in this encounter Miscellaneous Notes Miscellaneous - Ping Rosario M.D. - 09/22/2012 11:20 AM CST Ambulatory Patient Summary [facility] [address] [place] [address] Visit Information Name: AMAIRANI MARTINEZ [facility] Number: [id number] Current Date: 09/22/2012 11:20:46 Physicians Attending Provider: PING ROSARIO MD Primary Care Provider: VENUS WELLINGTON MD Your Medications Here is a list of your medications. It is important to take your medications as directed. Use a pillbox or chart to help remind you to take your medications. Please let your doctor or nurse know if you have problems taking your medications. Medication/Strength Dose Route Frequency Indications/Special Instructions/Comments *loratadine (Loratadine Reditab 10 mg oral tablet, disintegrating) 10 mg Oral once a day * You have let us know that you are not taking this medication as listed. Please talk with your primary care provider or the health care provider who prescribed the medication as soon as possible. Attention: If you have any medications at home that are not on this list, DO NOT take them until youcontact your provider for clarification. Your Allergies & Intolerances Substance Reaction Symptoms Category Comments No Known Allergies Drug Your Problem List Problem Status Onset Comments Allergic Rhinitis, Cause Unspecified Active 04/10/2010 Myopia Active Pectus Excavatum Active Your Upcoming Appointments Date Time Location Reason Provider No Appointments found Your Goals/Additional instructions: Source: [facility] POWERCHART Document Id: [id number] [place] KEY HOLDER Miscellaneous - Ping Rosario M.D. - 09/22/2012 11:20 AM CST Ambulatory Depart Summary [facility] [address] [place] [address] Visit Information Name: AMAIRANI MARTINEZ [facility] Number: [id number] Visit Date: 09/22/2012 11:20:45 Attending Provider: PING ROSARIO MD Primary Care Provider: VENUS WELLINGTON MD AMAIRANI MARTINEZ has been given the following list of medications: Your Medications It is important to take your medications as directed. Use a pill box or chart to help remind you to take your medications. Please let your doctor or nurse know if you have problems taking your medications. Medication/Strength Dose Route Frequency Indications/Special Instructions/Comments *loratadine (Loratadine Reditab 10 mg oral tablet, disintegrating) 10 mg Oral once a day * You have let us know that you are not taking this medication as listed. Please talk with your primary care provider or the health care provider who prescribed the medication as soon as possible. Attention: If you have any medications at home that are not on this list, DO NOT take them until youcontact your provider for clarification. Additional Information: Yes - . Source: [facility] POWERCHART Document Id: [id number] [place] KEY HOLDER documented in this encounter Plan of Treatment Not on filedocumented as of this encounter Visit Diagnoses Not on filedocumented in this encounter
--- OUTSIDE RECORDS SUMMARY | 2022-04-05 14:31 | XMS_ITS | Encounter Summary ---
:2000 Author Organization [facility] Address [address] [place] [address] Care Team Providers Name Role Phone Unavailable Primary Care Provider Unavailable Encounter Details Date Type Department Care Team Description 01/09/2014 Hospital Encounter HX [facility] Fred Hill M.D. [address] [place] [phone] (Wo rk) 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 Tobacco Use Types [...] Weight 58.8 kg (129 lb 10.1 oz) 01/09/2014 7:09 PM CDT Height - - Body Mass Index - - documented in this encounter Progress Notes Ankush Hill M.D. - 01/09/2014 6:35 PM CDT [id number] CHIEF COMPLAINT/REASON FOR VISIT A 13-year-old female with an earache and cough over the last few days. No other specific concerns orproblems. VITAL SIGNS Per EMR. PHYSICAL EXAMINATION OROPHARYNX: Clear. EARS: Left side TM erythema, bulging, loss of landmarks. NECK: Negative for mass or nodes of significance. LUNGS: Clear. No accessory muscle use. IMPRESSION/REPORT/PLAN Left otitis media. Amoxicillin. Conservative measures are reviewed. Followup as needed. Ankush Hill M.D./ladan Electronically Signed By: ANKUSH HILL MD On: 01/11/2014 11:26 AM Source: [facility] MHSDOLBEYNONRADSYS Document Id: [id number] documented in this encounter Miscellaneous Notes Miscellaneous - Bean Kohler L.PRodneyNRodney - 01/09/2014 7:09 PM CDT Pediatric Swimming Pool Attendant Intake/History Pediatric Swimming Pool Attendant Intake/History Entered On: 01/09/2014 19:13 CDT Performed On: 01/09/2014 19:09 CDT by BEAN KOHLER Intake Chief Complaint : ear pain and cough Onset of Symptoms : few days Temperature Oral : 36.6 DegC(Converted to: 97.9 DegF) (LOW) Peripheral Pulse Rate : 84 /min Respiratory Rate : 18 /min Systolic Blood Pressure : 102 mmHg Diastolic Blood Pressure : 60 mmHg NIBP Mean : 74 mmHg BP Location : Right upper extremity Blood Pressure Cuff Size : Regular Actual Weight : 58.8 kg(Converted to: 129 lb 10 oz) Dosing Weight Clinic : 58.8 kg BEAN KOHLER - 01/09/2014 19:09 CDT General Info Accompanied By : Father Information Given By : Patient, Father Languages : Turkmen BEAN KOHLER - 01/09/2014 19:09 CDT Subjective Pain Symptoms : Yes BEAN KOHLER - 01/09/2014 19:09 CDT Pain Pain Assessment Grid Pain 1 Location : Ear Laterality : Bilateral BEAN KOHLER - 01/09/2014 19:09 CDT Dependent Habits Tobacco Use/Currently Using : No Exposure to Tobacco Smoke : Care provider denies smoking in home Smoking Status : Never smoker BEAN KOHLER - 01/09/2014 19:09 CDT Source: [facility] POWERCHART Document Id: [id number] CDT!29 documented in this encounter Plan of Treatment Not on filedocumented as of this encounter Visit Diagnoses Not on filedocumented in this encounter
--- OUTSIDE RECORDS SUMMARY | 2022-04-05 14:31 | XMS_ITS | Encounter Summary ---
:[address] [facility] Address [address] [place] [address] Care Team Providers Name Role Phone Unavailable Primary Care Provider Unavailable Encounter Details Date Type Department Care Team Description 08/24/2012 Hospital Encounter HX [facility] Tom Peoples M.D. [address] [place], [place] [address] (Wo rk) 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 Tobacco Use Types Packs/Day Years Used Date Smoking Tobacco: Never Assessed Sex Assigned at Date Recorded Not on file documented as of this encounter Progress Notes Venus Peoples M.D. - 08/24/2012 11:15 AM CST [id number] CHIEF COMPLAINT/REASON FOR VISIT Sore throat. HISTORY OF PRESENT ILLNESS Amairani is 11 years old and here with her mother. Also seen along with BIAS MACHINE OPERATOR student, Christine Corado. Amairani began this morning with sore throat. She did not notice a fever at home but does have low grade fever in the office today. She has had a little bit of cough and runny nose, though very mild. Also, some headaches over the past week attributed to her eyes. She is due for eye checkup and likely needs new corrective lenses. CURRENT MEDICATIONS None. ALLERGIES No known drug allergies. VITAL SIGNS Temperature 38. Please see EMR for other vitals. PHYSICAL EXAMINATION GENERAL: Comfortable, in no distress. EYES: No injection or drainage EARS: Tympanic membranes with mild tympanosclerosis bilaterally. Otherwise normal without fluid or erythema. NOSE: Is clear. MOUTH: Mucous membranes moist. Posterior pharynx is pink. Tonsils are surgically absent. LYMPH: No significant cervical lymphadenopathy. HEART: Regular rate and rhythm S1, S2 without murmurs. LUNGS: Clear to auscultation bilaterally. IMPRESSION/REPORT/PLAN Sore throat. Because of her sore throat we did check rapid strep testing today which was negative. Backup throat culture will be sent and if positive, she should receive antibiotics. Otherwise, this ismore likely a viral illness. I recommend supportive cares. Venus Peoples M.D./cresencio Electronically Signed By: VENUS PEOPLES MD On: 08/29/2012 08:22 AM Modified by and Electronically Signed by: VENUS PEOPLES MD On: 08/29/2012 08:22 AM Source: [facility] [email or web address] Document Id: [id number] ROBE IMAGE CONSULTANT documented in this encounter Miscellaneous Notes Miscellaneous - Venus Peoples M.D. - 08/24/2012 11:44 AM CST Ambulatory Depart Summary [address] [address] Visit Information Name: AMAIRANI MARTINEZ [facility] Number: [id number] Visit Date: 08/24/2012 11:44:18 Attending Provider: VENUS PEOPLES MD Primary Care Provider: VENUS PEOPLES MD AMAIRANI [...] youcontact your provider for clarification. Additional Information: Source: [facility] POWERCHART Document Id: [id number] RTO [place] - Venus Peoples M.D. - 08/24/2012 11:44 AM CST Ambulatory Patient Summary [address] [address] Visit Information Name: AMAIRANI MARTINEZ [facility] Number: [id number] Current Date: 08/24/2012 11:44:19 Physicians Attending Provider: VENUS PEOPLES MD Primary Care Provider: VENUS PEOPLES MD Your [...] No Appointments found Your Goals/Additional instructions: Source: [facility] POWERCHART Document Id: [id number] RTO [place] - Chantell Pisano 08/24/2012 11:22 AM CST Pediatric Coatings Inspector Intake/History Pediatric Coatings Inspector Intake/History Entered On: 08/24/2012 11:24 WARDROBE IMAGE CONSULTANT Performed On: 08/24/2012 11:22 WARDROBE IMAGE CONSULTANT by CHANTELL PISANO Intake Chief Complaint : throat hurt, fever, headache, runny nose, cough Temperature Core : 38C(Converted to: 100.4DegF) Apical Heart Rate : 82/min Respiratory Rate : 20/min Systolic Blood Pressure : 100mmHg Diastolic Blood Pressure : 56mmHg NIBP Mean : 71mmHg BP Location : Left upper extremity Blood Pressure Cuff Size : Pediatric CHANTELL PISANO - 08/24/2012 11:22 WARDROBE IMAGE CONSULTANT Subjective Pain Symptoms : No CHANTELL PISANO - 08/24/2012 11:22 WARDROBE IMAGE CONSULTANT Dependent Habits Tobacco Use/Currently Using : No Smoking Status : Never smoker CHANTELL PISANO - 08/24/2012 11:22 WARDROBE IMAGE CONSULTANT Allergy Allergies (Active) NKA Estimated Onset Date: Unspecified ; Created By: CHANTELL UMANA; Reaction Status: Active ; Category: Drug ; Substance: NKA ; Type: Allergy ; Updated By: CHANTELL UMANA; Reviewed Date: 08/24/201211:22 WARDROBE IMAGE CONSULTANT Source: [facility] POWERCHART Document Id: [id number] ROBE IMAGE CONSULTANT documented in this encounter Plan of Treatment Not on filedocumented as of this encounter Procedures Procedure Name Priority Date/Time Associated Diagnosis Comme nts RAPID STREP A Routine 08/24/2012 11:35 AM Results for this SCREEN WARDROBE IMAGE CONSULTANT procedure are i n the results section. RAPID STREP A Routine 08/24/2012 11:35 AM Results for this SCREEN WARDROBE IMAGE CONSULTANT procedure are i n the results section. documented in this encounter Results Rapid Strep A Screen (08/24/2012 11:35 AM WARDROBE IMAGE CONSULTANT) [facility] Method Time Signature HXRapid Strep POWERCHART Confirmation HXFinal Negative POWERCHART Specimen Anatomical Collection Method Collection Time Receive d Time (Source) Location / / Volume Laterality Throat 08/24/2012 11:35 08/24/2012 AM WARDROBE IMAGE CONSULTANT 11:35 AM WARDROBE IMAGE CONSULTANT Venus Peoples M.D. LAB MICROBIOLOGY - GENERAL O DEJAN Performing Organization Address City/[facility] Code Phon e Number POWERCHART Rapid Strep A Screen (08/24/2012 11:35 AM WARDROBE IMAGE CONSULTANT) [facility] Method Time Signature HXStrep A POWERCHART Screen Rapid HXFinal Negative for POWERCHART Strep Group A by rapid screen. HXFinal Culture POWERCHART confirmation to follow. Specimen (Source) Anatomical Collection Method Collection Time Re ceived Time Location / / Volume Laterality Throat 08/24/2012 11:35 AM WARDROBE IMAGE CONSULTANT Venus Peoples M.D. LAB MICROBIOLOGY - GENERAL O DEJAN Performing Organization Address City/[facility] Code Phon e Number POWERCHART documented in this encounter Visit Diagnoses Not on filedocumented in this encounter
--- OUTSIDE RECORDS SUMMARY | 2022-04-05 14:31 | XMS_ITS | Encounter Summary ---
:2000 Author Organization [facility] Address [address] [place] [address] Care Team Providers Name Role Phone Unavailable Primary Care Provider Unavailable Encounter Details Date Type Department Care Team Description 03/15/2013 Hospital Encounter HX [facility] Tom Peoples M.D. [address] [place], [place] [address] (Wo rk) 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 Tobacco [...] - Inhaled Oxygen Concentration - - Weight 54.3 kg (119 lb 11.4 oz) 03/15/2013 1:14 PM CDT Height 162 cm (5' 3.78) 03/15/2013 1:14 PM CDT Body Mass Index 20.69 03/15/2013 1:14 PM CDT Body Mass Index Percentile 75.77 % 03/15/2013 1:14 PM CD T Growth Chart: CDC (Girls, 2-20 Years) documented in this encounter H&P Notes Venus Peoples M.D. - 03/15/2013 12:34 PM CDT [id number] CHIEF COMPLAINT/REASON FOR VISIT A 12-year-old well-child check HISTORY OF PRESENT ILLNESS Amairani is 12 years old here with her mother and younger sister for a checkup. She has been doing well overall. Still noticing some allergy symptoms in the spring but is otherwise well. She got new eyeglasses recently. Last eye exam was in September. She is trying to eat healthy. She will eat fruits and vegetables. She is a better milk drinker than her sister. Teeth are brushed, and she sees a dentist regularly. CURRENT MEDICATIONS None. ALLERGIES No known drug allergies. REVIEW SYSTEMS Positive for that mentioned in the history of present illness and past medical history. All other systems reviewed and were negative. DEVELOPMENT: Pediatric symptom checklist completed today. This was a low score of 4 which is within the normal range. Amairani had menarche about a year ago. She is having fairly regular periods without any excessive bleeding or cramping. Vision screening with eyeglasses in place: Right eye 20/20; left eye 20/25. Hearing screen: Please see EMR. Left ear she has some low tone hearing loss noted. PAST MEDICAL/SURGICAL HISTORY 1. Tonsilloadenoidectomy and 2007. 2. Several sets of PE tube including removal of PE tube under general anesthesia. 3. Umbilical hernia repair in 2006. 4. Myopia. 5. Seasonal allergies. SOCIAL HISTORY She lives with her mother, stepfather and younger sister in a nonsmoking home. She will be in seventh grade at the [employer] and overall doing well there. She did go to summer school for some extra reading help. FAMILY HISTORY Please see the EMR. VITAL SIGNS Please see EMR. PHYSICAL EXAMINATION GENERAL: A 12-year-old female who appears age appropriate. SKIN: No lesions, rash or jaundice. HEAD: Normocephalic. EYES: Conjunctivae noninjected; sclerae anicteric; lids without ptosis, edema or erythema; extraocular movements intact, pupils equal, round and reactive to light. Symmetric light reflex, normal fundi. ENT: Bilateral TMs flat and shiny. I do not see any fluid. There is some scarring in the left tympanic membrane. Nose clear. Palate is complete. Dentition normal for age. Tonsils small and non-inflamedbilaterally. LYMPH NODES: No significant lymphadenopathy. THYROID: No thyromegaly. BREASTS: Without lesions. [place] 4. PERIPHERAL PULSES: Normal pulses and perfusion. HEART: Regular rate and rhythm. Normal S1 and S2. No murmurs, gallops or rubs. LUNGS: Unlabored respirations; clear breath sounds; no wheezes, crackles, rales, rhonchi or retractions. ABDOMEN: Soft, without organomegaly. Bowel sounds normal. Nontender without rebound. No masses palpable. No distention. GENITALIA: Normal female genitalia. [place] Stage 4 to 5. SPINE: Straight with no lesions. JOINTS: Full range of motion about all joints. EXTREMITIES: No clubbing, cyanosis or edema. Normal upper and lower extremities. GAIT: No limp. Normal gait. MENTAL: Alert and oriented in no distress. Appropriate for age. NEURO: Normal reflexes; normal tone; no focal deficits appreciated. Cranial nerves II - XII intact. IMPRESSION/REPORT/PLAN Normal growth and development. Age-appropriate anticipatory guidance and safety issues were discussed. Amairani received today hepatitis A #2 and HPV #2 which brings immunizations up to date. Next full physical exam is due in a year. She does continue to shows a pattern of some left-sided low-tone hearing loss, likely related to the scarring on her eardrum. I did recommend annual eye exams for her. Venus Peoples M.D./akrthik Electronically Signed By: VENUS PEOPLES MD On: 03/19/2013 04:50 PM Source: [facility] [email or web address] Document Id: [id number] documented in this encounter Procedure Notes Conversion, Historical Provider Ser - 03/15/2013 1:29 PM CDT Vision Testing Vision Testing Entered On: 03/15/2013 13:29 CDT Performed On: 03/15/2013 13:29 CDT by JENN BOLIVAR LPN Vision Testing Corrective Lenses : Glasses Color Vision : Pass Eye, Right with Correction : 20/20 Eye, Left w/Correction : 20/25 JENN BOLIVAR LPN - 03/15/2013 13:29 CDT Source: [facility] POWERMd7 Document Id: [id number] CDT!6 Conversion, Historical Provider Ser - 03/15/2013 1:29 PM CDT Hearing Point of Care Testing - Audiometer Hearing Point of Care Testing - Audiometer Entered On: 03/15/2013 13:32 CDT Performed On: 03/15/2013 13:29 CDT by JENN BOLIVAR LPN Hearing Point of Care Testing - Audiometer Left Ear Hearing POC Test Grid Left Ear 20 db Left Ear 25 db Left Ear 30 db Left Ear 40 db 500 Hz : No response No response Response Response 1000 Hz : Response Response Response Response 2000 Hz : Response Response Response Response 4000 Hz : Response Response Response Response JENN BOLIVAR LPN - 03/15/2013 13:29 CDT JENN BOLIVAR LPN - 03/15/2013 13:29 CDT PRESLEY BOLIVAR LPN - 03/15/2013 13:29 CDT JENN BOLIVAR LPN - 03/15/2013 13:29 CDT Right Ear Hearing POC Test Grid Right Ear 20 db Right Ear 25 db Right Ear 30 db Right Ear 40 db 500 Hz : Response Response Response Response 1000 Hz : Response Response Response Response 2000 Hz : Response Response Response Response 4000 Hz : Response Response Response Response JENN BOLIVAR LPN - 03/15/2013 13:29 CDT JENN BOLIVAR LPN - 03/15/2013 13:29 CDT PRESLEY BOLIVAR LPN - 03/15/2013 13:29 CDT JENN BOLIVAR LPN - 03/15/2013 13:29 CDT Source: [facility] Attune Document Id: [id number] CDT!44 documented in this encounter Miscellaneous Notes Miscellaneous - Venus Peoples M.D. - 03/15/2013 1:49 PM CDT Ambulatory Depart Summary [address] [address] Visit Information Name: AMAIRANI MARTINEZ [facility] Number: [id number] Visit Date: 03/15/2013 13:49:04 Attending Provider: VENUS PEOPLES MD Primary Care [...] your medications. Medication/Strength Dose Route Frequency Indications/Special Instructions/Comments/Notes No Medications found Attention: If you have any medications at home that are not on this list, DO NOT take them until youcontact your provider for clarification. Additional Information: Source: [employer] Document Id: [id number] Miscellaneous - Venus Peoples M.D. - 03/15/2013 1:49 PM CDT Ambulatory Patient Summary [address] [address] Visit Information Name: AMAIRANI MARTINEZ [facility] Number: [id number] Current Date: 03/15/2013 13:49:04 Physicians Attending Provider: VENUS PEOPLES MD Primary Care Provider: VENUS PEOPLES MD Your Medications Here is a list of your medications. It is important to take your medications as directed. Use a pillbox or chart to help remind you to take your medications. Please let your doctor or nurse know if you have problems taking your medications. Medication/Strength Dose Route Frequency Indications/Special Instructions/Comments/Notes No Medications found Attention: If you have any medications at [...] No Appointments found Your Goals/Additional instructions: Source: [employer] Document Id: [id number] Miscellaneous - Conversion, Historical Provider Ser - 03/15/2013 1:14 PM CDT Pediatric Block Saw Operator Intake/History Pediatric Block Saw Operator Intake/History Entered On: 03/15/2013 13:15 CDT Performed On: 03/15/2013 13:14 CDT by JENN BOLIVAR LPN Intake Chief Complaint : 12 year old well child Temperature Core : 37.0 DegC(Converted to: 98.6 DegF) Peripheral Pulse Rate : 82 /min Respiratory Rate : 18 /min Systolic Blood Pressure : 110 mmHg Diastolic Blood Pressure : 76 mmHg NIBP Mean : 87 mmHg BP Location : Left upper extremity Blood Pressure Cuff Size : Regular Height : 162 cm(Converted to: 5 ft 4 inch(es), 63.78 inch(es)) Actual Weight : 54.3 kg(Converted to: 119 lb 11 oz) Weight Source : Standing scale Dosing Weight Clinic : 54.3 kg Clinic BSA : 1.56 Body Mass Index : 20.69 kg/m2 JENN BOLIVAR LPN - 03/15/2013 13:14 CDT General Info Preferred Name : Amairani Languages : Greek JENN BOLIVAR LPN - 03/15/2013 13:14 CDT Subjective Pain Symptoms : No JENN BOLIVAR LPN - 03/15/2013 13:14 CDT Dependent Habits Tobacco Use/Currently Using : No Exposure to Tobacco Smoke : Care provider denies smoking in home Smoking Status : Never smoker JENN BOLIVAR LPN - 03/15/2013 13:14 CDT Source: [facility] POWERCHART Document Id: [id number] CDT!26 documented in this encounter Plan of Treatment Not on filedocumented as of this encounter Visit Diagnoses Not on filedocumented in this encounter
--- OUTSIDE RECORDS SUMMARY | 2022-04-05 14:31 | XMS_ITS | Encounter Summary ---
:2000 Author Organization [facility] Address [address] [place] [address] Care Team Providers Name Role Phone Unavailable Primary Care Provider Unavailable Encounter Details Date Type Department Care Team Description 07/23/2016 Hospital Encounter HX [facility] Marley Solorzano M.D. [address] [place], [place] [phone] (Wo rk) Social [...] - Inhaled Oxygen Concentration - - Weight 57.9 kg (127 lb 10.3 oz) 07/23/2016 3:13 PM VARNISHING UNIT TOOL SETTER Height 161.5 cm (5' 3.58) 07/23/2016 3:13 PM VARNISHING UNIT TOOL SETTER Body Mass Index 22.2 07/23/2016 3:13 PM VARNISHING UNIT TOOL SETTER Body Mass Index Percentile 70.10 % 07/23/2016 3:13 PM CS T Growth Chart: CDC (Girls, 2-20 Years) documented in this encounter Progress Notes Marley Hendricks M.D. - 07/23/2016 2:45 PM CST [id number] CHIEF COMPLAINT/ REASON FOR VISIT Dysuria. HISTORY OF PRESENT ILLNESS Amairani is a 15 year old female who presents to the clinic today for dysuria. For the last couple days she has been having difficulty with burning with urination. It has gotten so bad that Amairani thatshe has tried to avoid urinating. She noticed some blood with wiping once but not in her urine. She has not noticed any sores in her vaginal area. She has not noticed any fevers. Amairani has had some cramping similar to menstrual cramps. She has not noticed any changes in her vaginal discharge. She recently became sexually active and last had sex just before she started her last period. She is not onbirth control but her partner uses a condom. Her last period was last week. The patient denies any additional questions or concerns at this time. MEDICATIONS Post-visit Medication Reconciliation Reviewed and are as outlined in the EMR dated 07/26/2016. ALLERGIES No known drug allergies. SYSTEMS REVIEW Please see HPI for pertinent positives, otherwise rest of ROS negative. PAST MEDICAL/SURGICAL HISTORY 1. Pectus excavatum. 2. Allergic rhinitis. 3. Hearing loss. 4. Tympanostomy x2 in 2003 and 2007. 5. PE tube removal in 2009. 6. Tonsillectomy and adenoidectomy in 2006. 7. Umbilical hernia repair, 2006. PREVENTIVE SERVICES Tobacco use: none, never smoker. VITAL SIGNS HEIGHT: 161.5 cm. WEIGHT: 57.9 kg. BMI: 22.2 kg/m2. TEMP: 37 Deg C. PULSE: 84 /min. RESP: 20 /min. SYSTOLIC: 102 mmHg. DIASTOLIC: 58 mmHg. PHYSICAL EXAMINATION GENERAL: Patient is alert and oriented times three, in no acute distress, good hygiene and is dressed appropriately. HEART: Regular rate and rhythm without murmur. LUNGS: Clear to auscultation. ABDOMEN: Mild suprapubic tenderness. GENITALIA: External genitalia without lesions. Cervix is normal in appearance. Vaginal discharge appears physiologic. Samples taken for vaginitis panel, gonorrhea and chlamydia screening. EXTREMITIES: Within normal limits. DIAGNOSTICS: Vaginitis panel results: pending. Chlamydia screening results: pending. Gonorrhea screening results: pending. UA with culture results: pending. Urine test results: negative. IMPRESSION/REPORT/PLAN 1. Dysuria. Above testing results are pending; further recommendations pending results. 2. Follow up. The patient will contact the clinic with any new or worsening symptoms. This document serves as a record of services personally performed by Marley Gaona MD. It was created on their behalf by Shayy Tipton, a trained medical artist. The creation of this record is based on the scribe's personal observations and the provider's statements to them. This document has been thomas cked and approved by the attending provider. Marley Roberson M.D./niko Electronically Signed By: MARLEY HENDRICKS MD On: 08/07/2016 08:26 PM Source: [facility] MHSDOLBEYNONRADSYS Document Id: [id number] ISHING UNIT TOOL SETTER documented in this encounter Miscellaneous Notes Miscellaneous - Marley Hendricks M.D. - 07/28/2016 9:10 AM VARNISHING UNIT TOOL SETTER Custom Result Letter July 28, 2016 AMAIRANI MARTINEZ [facility] [id number] Dear AMAIRANI MARTINEZ, Chlamydia test is negative Result Name Current Result Chlamydia DNA Probe Review 07/23/2016 GC by Nucleic Acid Amplification 07/23/2016 Sincerely, MARLEY ROBERSON [address] [place] [address] Electronic Signature Electronically Signed By: MARLEY HENDRICKS MD On: July 28, 2016 This document has images extracted. Source: [facility] POWERCHART Document Id: [id number] Electronically signed by Anastasia, [facility] Senior System Operator [id number] at 01/02/2017 10:58 AM CDT Miscellaneous - Marley Hendricks M.D. - 07/23/2016 7:46 PM VARNISHING UNIT TOOL SETTER Ambulatory Patient Summary [address] [id number] Visit Information Name: AMAIRANI MARTINEZ [facility] Number: [id number] Current Date: 07/23/2016 19:46:28 Physicians Attending Provider: MARLEY HENDRICKS MD Primary Care Provider: SHAYY HERNANDEZ MD AMAIRANI MARTINEZ has been given [...] Take Indications/Special Instructions/Comments/Notes for Patient Medication Changes/Routing metroNIDAZOLE (metroNIDAZOLE 500 mg oral tablet) 1 Tablet(s), Oral, two times a day x 7 day(s) New Routed to [address] [address] sulfamethoxazole-trimethoprim (Bactrim DS 800 mg-160 mg oral tablet) 1 Tablet(s), Oral, two times a day x 5 day(s) New Routed to [address] [address] Stop Taking the Following Medications: Medication list as of 07-23-16 19:46 Attention: If you have any medications at home that are not on this list, DO NOT take them until youcontact your provider for clarification. Give a copy of your medication list to your primary care provider. Update your medication list any time medications or doses are changed and carry your medication list at all times in case of emergency. Electronically Signed By: MARLEY HENDRICKS MD Signed On:23-JUL-2016 19:46:15 Your Allergies & Intolerances Substance Reaction Symptoms [...] if you dont have one. Go to [email or web address] and click on Create Your Account. Then, follow the directions to complete the online form. Youll be asked for your [facility] number which you can find at the top of this document. Your Goals/Additional instructions: Source: [facility] POWERCHART Document Id: [id number] ISHING UNIT TOOL SETTER Miscellaneous - Marley Hendricks M.D. - 07/23/2016 7:46 PM VARNISHING UNIT TOOL SETTER Ambulatory Discharge Medication List [address] [id number] Visit Information Name: DONYA AMAIRANICHESTER MOBLEY [facility] Number: [id number] Current Date: 07/23/2016 19:46:27 Attending Provider: MARLEY HENDRICKS MD Primary Care Provider: SHAYY HERNANDEZ MD DONYAAMAIRANI has been given the following list of medications: Your Medications It is important to take your medications as directed. Use a pill box or chart to help remind you to take your medications. Please let your doctor or nurse know if you have problems taking your medications. Medication/Strength How to Take Indications/Special Instructions/Comments/Notes for Patient Medication Changes/Routing metroNIDAZOLE (metroNIDAZOLE 500 mg oral tablet) 1 Tablet(s), Oral, two times a day x 7 day(s) New Routed to [facility] [address] [place] [address] sulfamethoxazole-trimethoprim (Bactrim DS 800 mg-160 mg oral tablet) 1 Tablet(s), Oral, two times a day x 5 day(s) New Routed to [facility] [address] [place] [address] Stop Taking the Following Medications: Medication list as of 07-23-16 19:46 Attention: If you have any medications at home that are not on this list, DO NOT take them until youcontact your provider for clarification. Give a copy of your medication list to your primary care provider. Update your medication list any time medications or doses are changed and carry your medication list at all times in case of emergency. Electronically Signed By: MARLEY HENDRICKS MD Signed On:23-JUL-2016 19:46:15 Additional Information: [facility] Document Id: [id number] ISHING UNIT TOOL SETTER Miscellaneous - Marley Hendricks M.D. - 07/23/2016 7:42 PM VARNISHING UNIT TOOL SETTER Addendum by RUBIO SYLVESTER CMA on July 26, 2016 10:46:32 VARNISHING UNIT TOOL SETTER Spoke with: ( _ ) Patient ( _x ) Parent ( _ ) Spouse ( _ ) Child ( ) Other: _ Call back telephone number: _ Reason for Call: -_ I notified mom of rx. She has already picked it up and started taking it. Chief Complaint: _ Patient/Caller response to Education/Information given: ( _ ) Verbalizes understanding of instructions ( _ ) Provide intervention per provider instruction ( _ ) Reinforce information already given ( _ ) Reinforce Plan of Care ( _ ) Provide preprinted information by mail (if applicable) Source/Reference used (if applicable): _ OK to leave message on voice mail? _ OK to send message via patient portal? _ Patient told to expect return call: ( _ ) today ( _ ) tomorrow ( _ ) next work day Callers preferred language for Healthcare discussion: _ Was an interpreter deaf used for this call? _ Other ( --_ ) From: MARLEY HENDRICKS MD To: FADI Gaona Nurse; Sent: 07/23/2016 19:42:24 VARNISHING UNIT TOOL SETTER Please notify Amairani that she has a vaginal infection. I sent rx for metronidazole to the pharmacy.One pill twice daily for seven days. No alcohol. Source: [facility] POWERCHART Document Id: [id number] Electronically signed by Anastasia, [facility] Senior System Operator [id number] at 01/02/2017 10:58 AM CDT Miscellaneous - Araceli Troy L.P.N. - 07/23/2016 3:13 PM CST Pediatric Tractor Trailer Mechanic Intake/History Pediatric Tractor Trailer Mechanic Intake/History Entered On: 07/23/2016 15:35 VARNISHING UNIT TOOL SETTER Performed On: 07/23/2016 15:13 VARNISHING UNIT TOOL SETTER by ARACELI TROY BREAD PAN GREASER Intake Chief Complaint : burning with urination and blood in urine x1 on 07/21/2016. attempted urine sampleto be obtained and taken to the lab for analysis per pcp instructions with patient unable to void with attempting x 30 min unsucessfully LMP Date : 07/2016 Temperature Core : 37 DegC(Converted to: 98.6 DegF) Peripheral Pulse Rate : 84 /min Respiratory Rate : 20 /min Systolic Blood Pressure : 102 mmHg Diastolic Blood Pressure : 58 mmHg NIBP Mean : 73 mmHg BP Location : Right upper extremity Blood Pressure Cuff Size : Regular Height : 161.5 cm(Converted to: 5 ft 4 inch(es), 64 inch(es)) Actual Weight : 57.90 kg(Converted to: 127 lb 10 oz) Weight Source : Standing scale Dosing Weight Clinic : 57.9 kg Prosthetic device on during patient weight : No Clinic BSA : 1.61 Body Mass Index : 22.2 kg/m2 ARACELI TROY BREAD PAN GREASER - 07/23/2016 15:13 VARNISHING UNIT TOOL SETTER General Info Mode of Arrival : Ambulatory Present in Room During Exam/Procedure : Alone Information Given By : Patient Languages : East Timorese Is Patient Female and 13-50 no hysterectomy : Yes Status : Patient denies Are you ? : No ARACELI TROY LPN - 07/23/2016 15:13 VARNISHING UNIT TOOL SETTER Subjective Pain Symptoms : No ARACELI TROY LPN - 07/23/2016 15:13 VARNISHING UNIT TOOL SETTER Dependent Habits Exposure to Tobacco Smoke : Care provider denies smoking in home Smoking Status : Never smoker Tobacco 2A : No Tobacco Use/Currently Using : No Tobacco Use/Last 30 Days : No Tobacco Use/Last 12 months : No ARACELI TROY LPN - 07/23/2016 15:13 VARNISHING UNIT TOOL SETTER Source: [facility] POWERCHART Document Id: [id number] VARNISHING UNIT TOOL SETTER!36 ISHING UNIT TOOL SETTER documented in this encounter Plan of Treatment Not on filedocumented as of this encounter Procedures Procedure Name Priority Date/Time Associated Comments Diagnosis URINALYSIS WITH Routine 07/23/2016 4:10 PM Result s for this MICROSCOPIC VARNISHING UNIT TOOL SETTER procedure are i n the results section. BACTERIAL CULTURE, Routine 07/23/2016 4:10 PM Res ults for this AEROBIC, URINE VARNISHING UNIT TOOL SETTER procedure are in the results section. TEST, U Routine 07/23/2016 4:10 PM Resu lts for this VARNISHING UNIT TOOL SETTER procedure are i n the results section. VAGINITIS BATTERY, Routine 07/23/2016 3:54 PM Res ults for this DNA (GENITAL) VARNISHING UNIT TOOL SETTER procedure are in the results section. CHLAMYDIA/GONORRHOEAE Routine 07/23/2016 3:54 PM Results for this AMPLIFIED RNA VARNISHING UNIT TOOL SETTER procedure are in the results section. CHLAMYDIA TRACHOMATIS Routine 07/23/2016 3:54 PM Results for this AMPLIFIED RNA VARNISHING UNIT TOOL SETTER procedure are in the results section. documented in this encounter Results (ABNORMAL) Urinalysis, Complete, Includes Microscopic (07/23/2016 4:10 PM VARNISHING UNIT TOOL SETTER) [facility] Method Time Signature Clarity Cloudy (A) Clear POWERCHART HXUr Color Yellow Colorless POWERCHART Specific 1.020 POWERCHART [place], POCT, U Comment: Reference Range Specific [place]: 1.000-1.035 pH, POCT, Urine 7.5 <5.0 POWERCHART Comment: Reference Range pH: 5.0-8.0 Protein, Ur, Dip Trace Negative MGDL POWERCHAR T Glucose Negative Negative MGDL POWERCHART Ketones, QL(U) Negative Negative MGDL POWERCHART HXBILIRUBIN Negative Negative POWERCHART HXBLOOD Trace (A) Negative POWERCHART Leukocyte Esterase Moderate (A) Negative POWERCHA RT HXNITRITE Positive (A) Negative POWERCHART Urobilinogen 1.0 0.2 MGDL POWERCHART Comment: Reference Range Urobilinogen: 0.2-1.0 mg/dL HXUR WBC. 31-40 (A) None Seen HPF POWERCHART HXUR RBC. Occ-2 None Seen HPF POWERCHART Squamous Epithelial Occ-3 (A) None Seen HPF POWERC THURMAN HXUR Bacteria, Present (A) None Seen POWERCHART Crystals Present (A) None Seen POWERCHART Comment: amorphous Specimen (Source) Anatomical Collection Method Collection Time Re ceived Time Location / / Volume Laterality Urine, First 07/23/2016 4:10 PM Voided VARNISHING UNIT TOOL SETTER Marley Baugh M.D. LAB URINE ORDERABLES Performing Organization Address City/State/ZIP Code Phon e Number POWERCHART (ABNORMAL) Bacterial Culture, Aerobic, Urine (07/23/2016 4:10 PM VARNISHING UNIT TOOL SETTER) Analysis Performed At Patho logist Time Signature Bacterial SA <=0.5 POWERCHART Culture, (POSITIVE) Aerobic, Urine HXPre [facility] POWERCHART Comment: >100,000 cfu/mL Gram Positive Cocci Presumptive Staphylococcus aureus HXFinal SA POWERCHART Comment: >100,000 cfu/mL Staphylococcus aureus Specimen (Source) Anatomical Collection Method Collection Time Re ceived Time Location / / Volume Laterality Urine, First 07/23/2016 4:10 PM Voided VARNISHING UNIT TOOL SETTER Organism Antibiotic Method Susceptibility Staphylococcus aureus Ciprofloxacin SUSCEPTIBILITY, <=0.5: Debby ceptible BRITTANEY (MCG/ML) Staphylococcus aureus Daptomycin SUSCEPTIBILITY, 0.25: Susc eptible BRITTANEY (MCG/ML) Staphylococcus aureus Doxycycline SUSCEPTIBILITY, <=0.5: Debby ceptible BRITTANEY (MCG/ML) Staphylococcus aureus Gentamicin SUSCEPTIBILITY, <=0.5: Debby ceptible BRITTANEY (MCG/ML) Staphylococcus aureus Levofloxacin SUSCEPTIBILITY, 0.25: Susc eptible BRITTANEY (MCG/ML) Staphylococcus aureus Linezolid SUSCEPTIBILITY, 2: Suscept ible BRITTANEY (MCG/ML) Staphylococcus aureus Moxifloxacin SUSCEPTIBILITY, <=0.25: [place] sceptible BRITTANEY (MCG/ML) Staphylococcus aureus Oxacillin SUSCEPTIBILITY, 0.5: Susce ptible BRITTANEY (MCG/ML) Staphylococcus aureus Rifampicin SUSCEPTIBILITY, <=0.5: Debby ceptible BRITTANEY (MCG/ML) Staphylococcus aureus Trimethoprim + SUSCEPTIBILITY, <=10: Susc eptible Sulfamethoxazole BRITTANEY (MCG/ML) Staphylococcus aureus Tetracycline SUSCEPTIBILITY, <=1: Susce ptible BRITTANEY (MCG/ML) Staphylococcus aureus Vancomycin SUSCEPTIBILITY, <=0.5: Debby ceptible BRITTANEY (MCG/ML) Marley Baugh M.D. LAB MICROBIOLOGY - GEN ERAL ORDERABLES Performing Organization Address City/State/ZIP Code Phon e Number POWERCHART Test, Qualitative, Urine (07/23/2016 4:10 PM VARNISHING UNIT TOOL SETTER) [facility] Method Time Signature HXBeta-hCG Negative POWERCHART Qualitative Urine Specimen Anatomical Collection Method Collection Time Receive d Time (Source) Location / / Volume Laterality Urine 07/23/2016 4:10 PM 6 4:28 VARNISHING UNIT TOOL SETTER PM VARNISHING UNIT TOOL SETTER Marley Baugh M.D. LAB URINE ORDERABLES Performing Organization Address City/[facility] Code Phon e Number POWERCHART Chlamydia / Gonorrhoeae Amplified RNA (07/23/2016 3:54 PM VARNISHING UNIT TOOL SETTER) Component Value Ref Test Analysis Performed At [facility] [employer] Range Method Time Signature HX GC by Nucleic POWERCHART Acid Amplification HXFinal Negative for POWERCHART Neisseria gonorrhea by RNA amplification . HXFinal Reference: POWERCHART Negative HXFinal If you POWERCHART submitted a female urine sample, please note it is a Laboratory Developed Test. Specimen (Source) Anatomical Collection Method Collection Time Re ceived Time Location / / Volume Laterality Vagina 07/23/2016 3:54 PM VARNISHING UNIT TOOL SETTER Marley Baugh M.D. LAB MICROBIOLOGY - GEN ERAL ORDERABLES Performing Organization Address City/[facility]/ZIP Code Phon e Number POWERCHART Chlamydia Trachomatis Amplified RNA (07/23/2016 3:54 PM VARNISHING UNIT TOOL SETTER) Component Value Ref Test Analysis Performed At [facility] Method Time Signature HXChlamydia by POWERCHART Nucleic Acid Amplification HXFinal Negative for POWERCHART Chlamydia trachomatis by RNA amplification. HXFinal Reference: POWERCHART Negative HXFinal If you POWERCHART submitted a female urine sample, please note it is a Laboratory Developed Test. Specimen (Source) Anatomical Collection Method Collection Time Re ceived Time Location / / Volume Laterality Vagina 07/23/2016 3:54 PM VARNISHING UNIT TOOL SETTER Marley Baugh M.D. LAB MICROBIOLOGY - GEN ERAL ORDERABLES Performing Organization Address City/State/ZIP Code Phon e Number POWERCHART (ABNORMAL) VAGINITIS BATTERY, DNA (GENITAL) (07/23/2016 3:54 PM VARNISHING UNIT TOOL SETTER) Component Value Ref Test Analysis Performed At [facility] [employer] Range Method Time Signature HXVaginitis (POSITIVE) POWERCHART Battery, DNA (Genital) HXFinal Trichomonas POWERCHART vaginalis DNA negative HXFinal Gardnerella POWERCHART vaginalis DNA positive HXFinal Paige species POWERCHART DNA negative HXFinal Reference: POWERCHART Negative Specimen (Source) Anatomical Collection Method Collection Time Re ceived Time Location / / Volume Laterality Vagina 07/23/2016 3:54 PM VARNISHING UNIT TOOL SETTER Marley Baugh M.D. LAB HISTORICAL ORDERS Performing Organization Address City/State/ZIP Code Phon e Number POWERCHART documented in this encounter Visit Diagnoses Not on filedocumented in this encounter Additional Health Concerns Assessment Noted Time PHQ-9 Depression Total Score: 1 04/22/2014 12:46 PM CD T documented as of this encounter
--- OUTSIDE RECORDS SUMMARY | 2022-04-05 14:31 | XMS_ITS | Encounter Summary ---
:2000 Author Organization [facility] Address [address] [place] [address] Care Team Providers Name Role Phone Unavailable Primary Care Provider Unavailable Encounter Details Date Type Department Care Team Description 09/04/2014 Hospital Encounter HX [facility] Tha Mccrary M.D. [address] [place], [place] [phone] (Wo rk) 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 Tobacco Use Types Packs/Day Years Used Date Smoking Tobacco: Never Assessed Sex Assigned at Date Recorded Not on file documented as of this encounter Progress Notes Gentry Cruz M.D. - 09/04/2014 3:46 PM CST [id number] The documentation for this visit is available in Synthesis IMPRESSION/REPORT/PLAN #1 Myopia both eyes. Increased from previous exam. Plan: Update glasses. F/u six months. INT Gentry Cruz M.D./tarun Electronically Signed By: GENTRY CRUZ MD On: 09/10/2014 08:04 AM Source: [facility] MHSDOLBEYNONRADSYS Document Id: [id number] ETIC TRAINER documented in this encounter Miscellaneous Notes Miscellaneous - Gentry Cruz M.D. - 09/04/2014 4:28 PM CST Ambulatory Patient Summary [place] [id number] Visit Information Name: AMAIRANI MARTINEZ [facility] Number: [id number] Current Date: 09/04/2014 16:28:55 Physicians Attending Provider: GENTRY CRUZ MD Primary [...] the Following Medications: Medication list as of 09-04-14 16:28 Attention: If you have any medications [...] Electronically Signed By: GENTRY CRUZ MD Signed On:04-SEP-2014 16:28:53 Your Allergies & Intolerances Substance Reaction Symptoms Category Comments No Known Allergies Drug Your Problem List Problem Status Onset Comments Allergic Rhinitis, Cause Unspecified Active 04/10/2010 Myopia Active Pectus Excavatum Active Hearing loss L, low tone Active 03/15/2013 Your Upcoming Appointments Date Time Location Provider No Appointments found Attention: Contact your local Clinic if further appointment detail needed. Your Goals/Additional instructions: Source: [facility] POWERCHART Document Id: [id number] ETIC TRAINER Miscellaneous - Gentry Cruz M.D. - 09/04/2014 4:28 PM CST Ambulatory Discharge Medication List [facility] [address] [place] [id number] Visit Information Name: AMAIRANI MARTINEZ [facility] Number: [id number] Visit Date: 09/04/2014 16:28:54 Attending Provider: GENTRY CRUZ MD Primary Care [...] the Following Medications: Medication list as of 09-04-14 16:28 Attention: If you have any medications [...] Electronically Signed By: GENTRY CRUZ MD Signed On:04-SEP-2014 16:28:53 Additional Information: Source: [facility] POWERCHART Document Id: [id number] ETIC TRAINER documented in this encounter Plan of Treatment Not on filedocumented as of this encounter Visit Diagnoses Not on filedocumented in this encounter Additional Health Concerns Assessment Noted Time PHQ-9 Depression Total Score: 1 04/22/2014 12:46 PM CD T documented as of this encounter
--- OUTSIDE RECORDS SUMMARY | 2022-04-05 14:31 | XMS_ITS | Encounter Summary ---
:2000 Author Organization [facility] Address [address] [place] [address] Care Team Providers Name Role Phone Unavailable Primary Care Provider Unavailable Encounter Details Date Type Department Care Team Description 04/22/2014 Hospital Encounter HX [facility] Sa manolo Farr M.D. [phone] (Wo rk) 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 Tobacco Use Types Packs/Day Years Used Date Smoking Tobacco: Never Assessed Sex Assigned at Date Recorded Not on file documented as of this encounter Last Filed Vital Signs Vital Sign Reading Time Taken Comments Blood Pressure - - Pulse - - Temperature - - Respiratory Rate - - Oxygen Saturation - - Inhaled Oxygen Concentration - - Weight 59.6 kg (131 lb 6.3 oz) 04/22/2014 8:03 AM CDT Height 163 cm (5' 4.17) 04/22/2014 8:03 AM CDT Body Mass Index 22.43 04/22/2014 8:03 AM CDT Body Mass Index Percentile 81.93 % 04/22/2014 8:03 AM CD T Growth Chart: CDC (Girls, 2-20 Years) documented in this encounter H&P Notes Mary Farr M.D. - 04/22/2014 7:43 AM CDT [id number] CHIEF COMPLAINT/REASON FOR VISIT This 13-1/2-year-old girl is seen for a well-child check. 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 Her academic performance is appropriate, according to MomRodney Bales is known to have pectus excavatum. This has been noted on previous exams and is again noted today. She has a history of hearing loss and on today's testing, she misses the low frequency tones on the left. She is able to hear them adequately on the right. She has some facial acne. She has an mxkw-erb-flwlgch benzoyl peroxide product for that and is not seeking any prescription acne treatment. She wears corrective lenses and vision today with her glasses is normal. She has had several sets of PE tubes and is status post adenotonsillectomy. She has 2 small warts, 1 on the right 3rd finger and a another on one of her toes. Because these aresmall, are not enlarging and because she wishes to treat them at home, I have advised her about that. This is entirely appropriate; she does not need office treatment for these small warts. SYSTEMS REVIEW SKIN: Acne as noted above. EYES: Corrective lenses. DENTAL: Up to date in dental care. ENT: No recurring ear or throat complaints. RESPIRATORY: No history of chronic cough or recurrent wheezing. HEART:No palpitations or chest pain. Normal stamina. GASTROINTESTINAL: Regular bowel movements without pain. No recurrent abdominal pain. GENITOURINARY: Menarche in 2012. No problems with her periods. NEUROLOGIC: No recurrent headache. MUSCULOSKELETAL: No pain or swelling in joints or extremities. SPINE: [place]ack or neck pain. PSYCHIATRIC: Denies marked mood swings or symptoms of depression. PAST MEDICAL/SURGICAL HISTORY 1. Hearing loss, stable. 2. Acne. 3. Pectus excavatum. 4. Status post adenotonsillectomy. 5. History of multiple sets of PE tubes. IMMUNIZATIONS: Reviewed and documented in EMR. SOCIAL HISTORY PHQ-9 for teens completed and reviewed. School attendance and grades discussed. She endorses a normal score of 1 on a PHQ-9. Mother endorses a normal score of 3 on a Pediatric Symptom Checklist with regard to Amairani's mental health and behavior.. FAMILY HISTORY Reviewed and documented in EMR. VITAL SIGNS Reviewed and documented in EMR. PHYSICAL EXAMINATION GENERAL: Well groomed. BMI 22.4 (82nd percentile). SKIN: Small, inflammatory acne papules on the face. Tiny warts, one seen on the right 3rd finger andanother on one of her toes. EYES: She wears eyeglasses. PERRLA. EOM full. Funduscopic exam reveals sharp disk margins and normalvenous pulsations. ENT: Tympanic membranes notable for some otosclerosis. External ears normal. Quiet nasal respirations. Good nasal airway. Pharynx nonerythematous. Tonsils absent. Dentition without obvious deep caries. LYMPH NODES: No lymphadenopathy in cervical or supraclavicular chains. BREASTS: [place] 4 female. THYROID: Normal to visualization and palpation. No enlargement or nodules. PERIPHERAL VESSELS: Normal femoral and pedal pulses. HEART: Quiet precordium. S1 and S2 normal with physiologic splitting of S2. No murmurs or clicks. LUNGS: Pectus excavatum. Lungs are clear to auscultation with effortless breathing movements. ABDOMEN: Soft and nondistended. No hepatosplenomegaly or masses. GENITALIA: Not examined. SPINE: Normal cervical and thoracolumbar spine without scoliosis. Flexibility normal. JOINTS: Full range of motion in extremities. MUSCULOSKELETAL: Normal muscle strength to resistance testing. GAIT: Normal walking gait. Normal heel, toe, and tandem gait. MENTAL: Open and cooperative demeanor. Mood euthymic. Affect appropriate. Speech fluid and goal directed. NEUROLOGIC: Deep tendon reflexes 2+/2+ in all four extremities. Babinski response negative bilaterally. Jpgmsm-du-mljv testing normal. Romberg negative. Normal tone. IMPRESSION/REPORT/PLAN 1. Healthy adolescent with normal growth and development. 2. There are a number of underlying medical issues, which are stable. Her mother does not voice a desire to evaluate Amairani's pectus further. Overall, the pectus excavatum deformity is relatively mild. 3. She does have hearing loss, which is static but which should be monitored regularly, at least every 6 to 12 months. 4. I recommend returning on a yearly basis for a full physical exam. Mary Farr M.D./ladan Electronically Signed By: MARY FARR MD On: 04/23/2014 12:48 PM Source: [facility] MHSDOLBEYNONRADSYS Document Id: [id number] documented in this encounter Miscellaneous Notes Miscellaneous - Mary Farr M.D. - 04/22/2014 12:46 PM CDT PHQ-9 - Teens PHQ-9 - Teens Entered On: 05/04/2014 12:47 CDT Performed On: 04/22/2014 12:46 CDT by MARY FARR MD PHQ-9 - Teens Feeling down, depressed, or [...] at all Trouble concentrating on things : Several days Moving or speaking slowly; restless or fidgety : Not at all Thoughts that you would be better off /hurting self : Not at all PHQ-9 Score for Teens : 1 Depressed or sad most days : No Serious thoughts about ending your life : No Ever try to kill yourself : No MARY FARR MD - 05/04/2014 12:46 CDT Source: [employer] Document Id: [id number] CDT!15 Loricellaneous - Mary Farr M.D. - 04/22/2014 9:46 AM CDT Ambulatory Patient Summary [address] [id number] Visit Information Name: DONYA AMAIRANICHESTER MOBLEY [facility] Number: [id number] Current Date: 04/22/2014 09:46:04 Physicians Attending Provider: MARY FARR MD Primary [...] the Following Medications: Medication list as of 04-22-14 09:46 Attention: If you have any medications at home that are not on this list, DO NOT take them until youcontact your provider for clarification. Give a copy of your medication list to your primary care provider. Update your medication list any time medications or doses are changed and carry your medication list at all times in case of emergency. Electronically Signed By: MARY FARR MD Signed On:22-APR-2014 09:45:57 Your Allergies & Intolerances Substance Reaction Symptoms Category Comments No Known Allergies Drug Your Problem List Problem Status Onset Comments Allergic Rhinitis, Cause Unspecified Active 04/10/2010 Myopia Active Pectus Excavatum Active Hearing loss L, low tone Active 03/15/2013 Your Upcoming Appointments Date Time Location Provider No Appointments found Attention: Contact your local Clinic if further appointment detail needed. Your Goals/Additional instructions: Source: [facility] POWERCHART Document Id: [id number] Miscellaneous - Mary Farr M.D. - 04/22/2014 9:46 AM CDT Ambulatory Discharge Medication List [address] [id number] Visit Information Name: AMAIRANI MARTINEZ [facility] Number: [id number] Visit Date: 04/22/2014 09:46:03 Attending Provider: MARY FARR MD Primary Care [...] the Following Medications: Medication list as of 04-22-14 09:46 Attention: If you have any medications at home that are not on this list, DO NOT take them until youcontact your provider for clarification. Give a copy of your medication list to your primary care provider. Update your medication list any time medications or doses are changed and carry your medication list at all times in case of emergency. Electronically Signed By: MARY FARR MD Signed On:22-APR-2014 09:45:57 Additional Information: Source: [facility] POWERCHART Document Id: [id number] Miscellaneous - Vy Maya L.P.N. - 04/22/2014 8:03 AM CDT Pediatric Motor Checker Intake/History Pediatric Motor Checker Intake/History Entered On: 04/22/2014 8:06 CDT Performed On: 04/22/2014 8:03 CDT by VY MAYA LPN Intake Chief Complaint : well child Temperature Core : 37 DegC(Converted to: 98.6 DegF) Peripheral Pulse Rate : 80 /min Respiratory Rate : 12 /min (<LLOW) Heart Rhythm : Regular Systolic Blood Pressure : 108 mmHg Diastolic Blood Pressure : 72 mmHg NIBP Mean : 84 mmHg BP Location : Left upper extremity Blood Pressure Cuff Size : Regular Height : 163 cm(Converted to: 5 ft 4 inch(es), 64 inch(es)) Actual Weight : 59.6 kg(Converted to: 131 lb 6 oz) Weight Source : Standing scale Dosing Weight Clinic : 59.6 kg Clinic BSA : 1.64 Body Mass Index : 22.43 kg/m2 VY MAYA LPN - 04/22/2014 8:03 CDT General Info Accompanied By : Mother, Sibling Information Given By : Mother Languages : Canadian Is Patient Female and 13-50 no hysterectomy : Yes Status : Patient denies Are you ? : No VY MAYA LPN - 04/22/2014 8:03 CDT Subjective Pain Symptoms : No VY MAYA LPN - 04/22/2014 8:03 CDT Dependent Habits Tobacco Use/Currently Using : No Exposure to Tobacco Smoke : Care provider denies smoking in home Smoking Status : Never smoker VY MAYA LPN - 04/22/2014 8:03 CDT Source: [facility] [employer] Document Id: [id number] CDT!31 documented in this encounter Plan of Treatment Not on filedocumented as of this encounter Visit Diagnoses Not on filedocumented in this encounter Additional Health Concerns Assessment Noted Time PHQ-9 Depression Total Score: 1 04/22/2014 12:46 PM CD T documented as of this encounter
--- OUTSIDE RECORDS SUMMARY | 2022-04-05 14:31 | XMS_ITS | Encounter Summary ---
:2000 Author Organization [facility] Address [address] [place] [address] Care Team Providers Name Role Phone Unavailable Primary Care Provider Unavailable Encounter Details Date Type Department Care Team Description 06/15/2016 Hospital Encounter HX [facility] Kecia Garcia APRN, C.N.P. [address], [phone] (Wo rk) 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 [...] - Inhaled Oxygen Concentration - - Weight 59.9 kg (132 lb 2.7 oz) 06/15/2016 3:14 PM MARINE WATER TENDER Height 162 cm (5' 3.78) 06/15/2016 3:14 PM MARINE WATER TENDER Body Mass Index 22.84 06/15/2016 3:14 PM MARINE WATER TENDER Body Mass Index Percentile 75.63 % 06/15/2016 3:14 PM CS T Growth Chart: CDC (Girls, 2-20 Years) documented in this encounter Progress Notes Kecia Garcia APRN, C.N.P. - 06/15/2016 3:33 PM CST Clinic Full Note CHIEF COMPLAINT/REASON FOR VISIT Sore throat for about a week that comes and goes. No other symtoms. HISTORY OF PRESENT ILLNESS Amairani is here with her mom. She has had intermittent sore throat for the past week. No upper respiratory congestion. No fever. MEDICATIONS No active medications ALLERGIES NKA PAST [...] general anesthesia.. (2003). SOCIAL HISTORY Date Time: 06/15/2016 15:14 Tobacco: Smoking Status: Never smoker Exposure: Care provider denies smoking in home Alcohol: Use: No Results Found Recreational Drugs: Use: No Results Found Type: No Results Found FAMILY HISTORY Mother:Positive: Dyslexia Grandfather:Positive: Coronary artery disease SYSTEMS REVIEW Positive for that mentioned in the History of Present Illness and Past Medical History. All other systems were reviewed and were negative. VITAL SIGNS T: 36.9 ??C (Core) HR: 68 RR: 20 BP: 110 / 68 SpO2: 98% HT: 162 cm WT: 59.95 kg BMI: 22.84 PHYSICAL EXAMINATION GENERAL: Well-developed, well-nourished, in no acute distress. SKIN: Warm and dry. HEENT: TMs clear. Throat erythematous. Nares congested with clear mucus. NECK: Supple. Mild anterior cervical lymphadenopathy. HEART: Regular rate and rhythm. S1, S2. No murmur. LUNGS: Clear to auscultation. No wheezes or rales. ABDOMEN: Soft, nontender. No hepatosplenomegaly. LAB RESULTS Rapid strep is negative. Throat culture is pending. IMPRESSION/REPORT/PLAN Sore Throat (ST) NOS Symptomatic treatment. Encourage fluids, Tylenol for fever and discomfort. Recheck if symptoms do not improve. Ordered: Strep A Screen Rapid Electronically Signed By: KECIA GARCIA APRN, CNP On: 06/15/2016 03:53 PM Source: [facility] POWERCHART Document Id: [id number] NE WATER TENDER documented in this encounter Nursing Notes Kecia Garcia APRN C.N.P. - 06/15/2016 3:52 PM CST Ambulatory Patient Education The following Patient Education Materials have been given to the patient: Patient Education Materials: Ambulatory PHARYNGITIS, Viral Ambulatory Viral Pharyngitis (Sore Throat) Your throat pain is due to an infection called Viral Pharyngitis, commonly known as Sore Throat.This is a contagious illness. It is spread through the air by coughing, kissing or by touching others after touching your mouth or nose. Symptoms include throat pain worse with swallowing, aching all over, headache and fever. Unlike strep throat, which is a bacterial infection, this illness does not require treatment with an antibiotic. Home Care: If your symptoms are severe, rest at home for the first 2-3 days. Children: Use acetaminophen (Tylenol) for fever, fussiness or discomfort. In infants over six monthsof age, you may use ibuprofen (Children's Motrin) instead of Tylenol. [NOTE: If your child has chronic liver or kidney disease or ever had a stomach ulcer or GI bleeding, talk with your nazia doctor before using these medicines.] (Aspirin should never be used in anyone under 18 years of age who is ill with a fever. It may cause severe liver damage.) Adults: You may use acetaminophen (Tylenol) or ibuprofen (Motrin, Advil) to control pain or fever, unless another medicine was prescribed. [NOTE: If you have chronic liver or kidney disease or ever hada stomach ulcer or GI bleeding, talk with your doctor before using these medicines.] Throat lozenges or sprays (Chloraseptic and others) will reduce pain. Gargling with warm salt water will also reduce throat pain. Dissolve 1/2 teaspoon of salt in 1 glass of warm water. This is especially useful just before meals. Follow Up with your doctor or as directed by our staff if you are not improving over the next week. Get Prompt Medical Attention if any of the following occur: ?? Fever over 100.5??F (38.0??C) oral, or over 101.5??F (38.6??C) rectal for more than three days ?? New or worsening ear pain, sinus pain or headache ?? Painful lumps in the back of your neck ?? Unable to swallow liquids or open your mouth wide due to throat pain ?? Trouble breathing or noisy breathing ?? Muffled voice ?? New rash ?? [id number] [facility], [address] [place] [address], [place] [address]. All rights reserved. This information is not intended as a substitute for professional medical care. Always follow your healthcare professional's instructions. This document has images extracted. Please consider using [employer] for all your patient education needs. Source: [facility] POWERCHART Document Id: [id number] NE WATER TENDER documented in this encounter Miscellaneous Notes Miscellaneous - Kecia Garcia APRN, C.N.P. - 06/15/2016 3:52 PM CST Ambulatory Discharge Medication List [address] [id number] Visit Information Name: AMAIRANI NAQVI [facility] Number: [id number] Current Date: 06/15/2016 15:52:51 Attending Provider: KECIA GARCIA APRN [facility] Primary Care Provider: SHAYY HERNANDEZ MD AMAIRANI NAQVI has been given the following [...] the Following Medications: Medication list as of 06-15-16 15:52 Attention: If you have any medications at [...] Signed By: KECIA GARCIA APRN, CNP Signed On:15-JUN-2016 15:52:43 Additional Information: Source: [facility] POWERCHART Document Id: [id number] NE WATER TENDER Miscellaneous - Kecia Garcia APRN, C.N.P. - 06/15/2016 3:52 PM CST Ambulatory Patient Summary [address] [id number] Visit Information Name: AMAIRANI NAQVI [facility] Number: [id number] Current Date: 06/15/2016 15:52:52 Physicians Attending Provider: KECIA GARCIA APRN, CNP Primary Care Provider: SHAYY HERNANDEZ MD AMAIRANI NAQVI has been given the following [...] the Following Medications: Medication list as of 06-15-16 15:52 Attention: If you have any medications at [...] Signed By: KECIA GARCIA APRN, CNP Signed On:15-JUN-2016 15:52:43 Your Allergies & Intolerances Substance Reaction Symptoms Category Comments No Known Allergies Drug Your Problem List Problem Status Onset Comments Allergic Rhinitis, Cause Unspecified Active 04/10/2010 Myopia Active Pectus Excavatum Active Hearing loss L, low tone Active 03/15/2013 Your Upcoming Appointments Date Time Location Provider No Appointments found Attention: Contact your local Clinic if further appointment detail needed. Viral Pharyngitis (Sore Throat) Your throat pain is due to an infection called Viral Pharyngitis, commonly known as Sore Throat.This is a contagious illness. It is spread through the air by coughing, kissing or by touching others after touching your mouth or nose. Symptoms include throat pain worse with swallowing, aching all over, headache and fever. Unlike strep throat, which is a bacterial infection, this illness does not require treatment with an antibiotic. Home Care: If your symptoms are severe, rest at home for the first 2-3 days. Children: Use acetaminophen (Tylenol) for fever, fussiness or discomfort. In infants over six monthsof age, you may use ibuprofen (Children's Motrin) instead of Tylenol. [NOTE: If your child has chronic liver or kidney disease or ever had a stomach ulcer or GI bleeding, talk with your nazia doctor before using these medicines.] (Aspirin should never be used in anyone under 18 years of age who is ill with a fever. It may cause severe liver damage.) Adults: You may use acetaminophen (Tylenol) or ibuprofen (Motrin, Advil) to control pain or fever, unless another medicine was prescribed. [NOTE: If you have chronic liver or kidney disease or ever hada stomach ulcer or GI bleeding, talk with your doctor before using these medicines.] Throat lozenges or sprays (Chloraseptic and others) will reduce pain. Gargling with warm salt water will also reduce throat pain. Dissolve 1/2 teaspoon of salt in 1 glass of warm water. This is especially useful just before meals. Follow Up with your doctor or as directed by our staff if you are not improving over the next week. [id number] Prompt Medical Attention if any of the following occur: ?? Fever over 100.5?F (38.0?C) oral, or over 101.5?F (38.6?C) rectal for more than threedays ?? New or worsening ear pain, sinus pain or headache ?? Painful lumps in the back of your neck ?? Unable to swallow liquids or open your mouth wide due to throat pain ?? Trouble breathing or noisy breathing ?? Muffled voice ?? New rash ?? [id number] [facility], [address] [place] [address], [place] [address]. All rights reserved. This information is not [...] if you dont have one. Go to [email or web address] and click on Create Your Account. Then, follow the directions to complete the online form. Youll be asked for your [facility] number which you can find at the top of this document. Your Goals/Additional instructions: This document has images extracted. Please consider using [employer] for all your patient education needs. Source: [facility] POWERCHART Document Id: [id number] NE WATER TENDER Miscellaneous - Ara Lange L.P.NRodney - 06/15/2016 3:14 PM CST Pediatric Cuprous Chloride Operator Intake/History Pediatric Cuprous Chloride Operator Intake/History Entered On: 06/15/2016 15:16 MARINE WATER TENDER Performed On: 06/15/2016 15:14 MARINE WATER TENDER by ARA LANGE LPN Intake Chief Complaint : Sore throat for about a week that comes and goes. No other symtoms. Temperature Core : 36.9 DegC(Converted to: 98.4 DegF) Peripheral Pulse Rate : 68 /min Respiratory Rate : 20 /min Heart Rhythm : Regular Systolic Blood Pressure : 110 mmHg Diastolic Blood Pressure : 68 mmHg NIBP Mean : 82 mmHg BP Location : Right upper extremity Blood Pressure Cuff Size : Regular SpO2 : 98 % Oxygen Therapy : Room air Height : 162 cm(Converted to: 5 ft 4 inch(es), 64 inch(es)) Actual Weight : 59.95 kg(Converted to: 132 lb 3 oz) Weight Source : Standing scale Dosing Weight Clinic : 59.95 kg Clinic BSA : 1.64 Body Mass Index : 22.84 kg/m2 ARA LANGE MOIZ - 06/15/2016 15:14 MARINE WATER TENDER General Info Present in Room During Exam/Procedure : Mother Information Given By : Patient, Mother Preferred Communication Mode : Verbal Languages : Lithuanian Is Patient Female and 13-50 no hysterectomy : Yes Status : Patient denies Are you ? : No ARA LANGE MOIZ - 06/15/2016 15:14 MARINE WATER TENDER Subjective Pain Symptoms : Yes ARA LANGE MOIZ - 06/15/2016 15:14 MARINE WATER TENDER Pain Scale Pain Scale Verbal 0-10 : Open ARA LANGE MOIZ - 06/15/2016 15:14 MARINE WATER TENDER Pain Pain Assessment Grid Pain 1 Location : Throat Intensity : 7 Time Pattern : Intermittent ARA LANGE MOIZ - 06/15/2016 15:14 MARINE WATER TENDER Dependent Habits Exposure to Tobacco Smoke : Care provider denies smoking in home Smoking Status : Never smoker Tobacco 2A : No Tobacco Use/Currently Using : No Tobacco Use/Last 30 Days : No Tobacco Use/Last 12 months : No ARA LANGE MOIZ - 06/15/2016 15:14 MARINE WATER TENDER Source: [facility] POWERCHART Document Id: [id number] MARINE WATER TENDER!45 NE WATER TENDER documented in this encounter Plan of Treatment Not on filedocumented as of this encounter Procedures Procedure Name Priority Date/Time Associated Diagnosis Comme nts RAPID STREP A Routine 06/15/2016 3:51 PM Results for this SCREEN MARINE WATER TENDER procedure are i n the results section. RAPID STREP A Routine 06/15/2016 3:51 PM Results for this SCREEN MARINE WATER TENDER procedure are i n the results section. documented in this encounter Results Rapid Strep A Screen (06/15/2016 3:51 PM MARINE WATER TENDER) [facility] Method Time Signature HXRapid Strep POWERCHART Confirmation HXPre Negative for POWERCHART Group A Strep by culture. HXFinal Negative for POWERCHART Group A Strep by culture. Specimen Anatomical Collection Method Collection Time Receive d Time (Source) Location / / Volume Laterality Throat 06/15/2016 3:51 PM 6 3:51 MARINE WATER TENDER PM MARINE WATER TENDER Kecia J Myrom WAITER/WAITRESS FIRST CLASS, C.N.P. LAB MICROBIOLOGY - GENERAL ORDERABLES Performing Organization Address City/State/ZIP Code Phon e Number POWERCHART Rapid Strep A Screen (06/15/2016 3:51 PM MARINE WATER TENDER) [facility] Method Time Signature HXStrep A POWERCHART Screen Rapid HXFinal Negative for POWERCHART Strep Group A by rapid screen. HXFinal Culture POWERCHART confirmation to follow. Specimen (Source) Anatomical Collection Method Collection Time Re ceived Time Location / / Volume Laterality Throat 06/15/2016 3:51 PM MARINE WATER TENDER Kecia Garcia APRN, C.N.P. LAB MICROBIOLOGY - GENERAL ORDERABLES Performing Organization Address City/State/[facility] Code Phon e Number POWERCHART documented in this encounter Visit Diagnoses Not on filedocumented in this encounter Additional Health Concerns Assessment Noted Time PHQ-9 Depression Total Score: 1 04/22/2014 12:46 PM CD T documented as of this encounter
--- OUTSIDE RECORDS SUMMARY | 2022-04-05 14:31 | XMS_ITS | Encounter Summary ---
:2000 Author Organization [facility] Address [address] [place] [address] Care Team Providers Name Role Phone Unavailable Primary Care Provider Unavailable Encounter Details Date Type Department Care Team Description 11/15/2013 Hospital Encounter HX [facility] OWTha Marie M.D. [address] [place], [place] [phone] (Wo rk) 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 Tobacco Use Types Packs/Day Years Used Date Smoking Tobacco: Never Assessed Sex Assigned at Date Recorded Not on file documented as of this encounter Plan of Treatment Not on filedocumented as of this encounter Visit Diagnoses Not on filedocumented in this encounter
--- OUTSIDE RECORDS SUMMARY | 2022-04-05 14:31 | XMS_ITS | Encounter Summary ---
:2000 Author Organization [facility] Address [address] [place] [address] Care Team Providers Name Role Phone Unavailable Primary Care Provider Unavailable Encounter Details Date Type Department Care Team Description 07/23/2016 Hospital Encounter HX NO MAPPING Mireya Baugh M.D. [address] [place], [place] [phone] (Wo rk) 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 Tobacco Use Types Packs/Day Years Used Date Smoking Tobacco: Never Assessed Sex Assigned at Date Recorded Not on file documented as of this encounter Miscellaneous Notes Miscellaneous - Conversion, Historical Provider Ser - 07/23/2016 11:59 PM SWAT TEAM MEMBER Coding Summary-Paper Based CODING DATE: 08/04/2016 FINAL [facility] STATUS: * Discharged to Home or Self Care [facility] AD[facility] DX: REASON FOR VISIT DX: FINAL DX: PRINCIPAL: R35.0 Frequency of micturition SECONDARY: PROCEDURES DOCTOR NAME DATE NOTE: The code number assigned matches the documented diagnosis and / or procedure in the patient's chart. However, the narrative phrase printed from the coding software may appear abbreviated, or result in slightly different terminology. Coded By: ORIANA RAMOS Date Saved: 08/04/2016 04:34 pm [facility] Document Id: [id number] documented in this encounter Plan of Treatment Not on filedocumented as of this encounter Visit Diagnoses Not on filedocumented in this encounter Additional Health Concerns Assessment Noted Time PHQ-9 Depression Total Score: 1 04/22/2014 12:46 PM CD T documented as of this encounter
--- OUTSIDE RECORDS SUMMARY | 2022-04-05 14:31 | XMS_ITS | Encounter Summary ---
:2000 Author Organization [facility] Address [address] [place] [address] Care Team Providers Name Role Phone Unavailable Primary Care Provider Unavailable Encounter Details Date Type Department Care Team Description 11/11/2014 Hospital Encounter HX [facility]ILY[facility] Vincenzo Ware P.A.-C. [address] [place] [phone] (Wo rk) 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 Tobacco Use Types [...] Weight 59 kg (130 lb 1.1 oz) 11/11/2014 3:34 PM CDT Height 163 cm (5' 4.17) 11/11/2014 3:34 PM CDT Body Mass Index 22.21 11/11/2014 3:34 PM CDT Body Mass Index Percentile 78.12 % 11/11/2014 3:34 PM CD T Growth Chart: CDC (Girls, 2-20 Years) documented in this encounter H&P Notes Kyle Ware P.A.-C. - 11/11/2014 3:13 PM CDT [id number] CHIEF COMPLAINT/REASON FOR VISIT Sports history and physical. HISTORY OF PRESENT ILLNESS Amairani is a very pleasant 14-year-old girl who comes in today for a sports history and physical. She plans to run track this year. She has no other real concerns. She has had myringotomy tubes in the past. She has had her period; it is irregular. She does not have any problems with that. She has goodfriends. 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 Many of her friends are running track, and she thought that would be fun so she is going to try it as well. She is doing well in school. PHYSICAL EXAMINATION The details of the sports history and physical are documented on the form, which will be scanned into the EMR. IMPRESSION/REPORT/PLAN Sports history and physical. She is up to date on her immunizations. I filled out her sports physical. She is able to participate in sports without any restrictions. If there are any further questions or any problems, she will let us know, and otherwise will have her follow up as needed. Kyle Waer PA-C/ladan Electronically Signed By: KYLE WARE PA-C On: 11/13/2014 10:23 AM Source: [facility] MHSDOLBEYNONRADSYS Document Id: [id number] documented in this encounter Miscellaneous Notes Miscellaneous - Kyle Ware P.A.-C. - 11/11/2014 5:17 PM CDT Ambulatory Patient Summary [address] [id number] Visit Information Name: AMAIRANI MARTINEZ [facility] Number: [id number] Current Date: 11/11/2014 17:17:08 Physicians Attending Provider: KYLE WARE PA-C Primary Care Provider: SHAYY HERNANDEZ MD AMAIRANI [...] the Following Medications: Medication list as of 11-11-14 17:17 Attention: If you have any medications at home that are not on this list, DO NOT take them until youcontact your provider for clarification. Give a copy of your medication list to your primary care provider. Update your medication list any time medications or doses are changed and carry your medication list at all times in case of emergency. Electronically Signed By: KYLE WARE PA-C Signed On:11-NOV-2014 17:17:04 Your Allergies & Intolerances Substance Reaction Symptoms Category Comments No Known Allergies Drug Your Problem List Problem Status Onset Comments Allergic Rhinitis, Cause Unspecified Active 04/10/2010 Myopia Active Pectus Excavatum Active Hearing loss L, low tone Active 03/15/2013 Your Upcoming Appointments Date Time Location Provider No Appointments found Attention: Contact your local Clinic if further appointment detail needed. Your Goals/Additional instructions: Source: [facility] POWERCHART Document Id: [id number] Miscellaneous - Kyle Ware P.A.-C. - 11/11/2014 5:17 PM CDT Ambulatory Discharge Medication List [address] [id number] Visit Information Name: AMAIRANI MARTINEZ [facility] Number: [id number] Visit Date: 11/11/2014 17:17:07 Attending Provider: KYLE WARE PA-C Primary Care Provider: SHAYY HERNANDEZ MD AMAIRANI [...] the Following Medications: Medication list as of 11-11-14 17:17 Attention: If you have any medications at home that are not on this list, DO NOT take them until youcontact your provider for clarification. Give a copy of your medication list to your primary care provider. Update your medication list any time medications or doses are changed and carry your medication list at all times in case of emergency. Electronically Signed By: KYLE WARE PA-C Signed On:11-NOV-2014 17:17:04 Additional Information: Source: [facility] POWERCHART Document Id: [id number] Miscellaneous - Flores Ngo L.P.N. - 11/11/2014 3:34 PM CDT Pediatric Flame Annealing Machine Operator Intake/History Pediatric Flame Annealing Machine Operator Intake/History Entered On: 11/11/2014 15:39 CDT Performed On: 11/11/2014 15:34 CDT by [employer] Intake Chief Complaint : sports physical Temperature Core : 37.0 DegC(Converted to: 98.6 DegF) Peripheral Pulse Rate : 100 /min (HI) Respiratory Rate : 16 /min Systolic Blood Pressure : 108 mmHg Diastolic Blood Pressure : 60 mmHg NIBP Mean : 76 mmHg BP Location : Right upper extremity Blood Pressure Cuff Size : Regular Height : 163 cm(Converted to: 5 ft 4 inch(es), 64 inch(es)) Actual Weight : 59 kg(Converted to: 130 lb 1 oz) Weight Source : Standing scale Dosing Weight Clinic : 59 kg Clinic BSA : 1.63 Body Mass Index : 22.21 kg/m2 [employer] - 11/11/2014 15:34 CDT General Info Information Given By : Patient, Mother Languages : Bengali Is Patient Female and 13-50 no hysterectomy : Yes Status : Patient denies Are you ? : No [employer] - 11/11/2014 15:34 CDT Subjective Pain Symptoms : No [employer] - 11/11/2014 15:34 CDT Dependent Habits Tobacco Use/Currently Using : No Exposure to Tobacco Smoke : Care provider denies smoking in home Smoking Status : Never smoker [employer] - 11/11/2014 15:34 CDT ID Screen Travel Within Last 21 Days : No Contact with someone with Ebola : No [employer] - 11/11/2014 15:34 CDT Source: [facility] [employer] Document Id: [id number]!32 documented in this encounter Plan of Treatment Not on filedocumented as of this encounter Visit Diagnoses Not on filedocumented in this encounter Additional Health Concerns Assessment Noted Time PHQ-9 Depression Total Score: 1 04/22/2014 12:46 PM CD T documented as of this encounter
--- OUTSIDE RECORDS SUMMARY | 2022-04-05 14:31 | XMS_ITS | Encounter Summary ---
:2000 Author Organization [facility] Address [address] [place] [address] Care Team Providers Name Role Phone Unavailable Primary Care Provider Unavailable Encounter Details Date Type Department Care Team Description 09/28/2010 Hospital Encounter HX [facility] Tom Peoples M.D. [address] [place], [place] [address] (Wo rk) 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 Tobacco [...] - Inhaled Oxygen Concentration - - Weight 35.2 kg (77 lb 9.6 oz) 09/28/2010 11:18 AM CORSETS SALESPERSON Height - - Body Mass Index - - documented in this encounter Progress Notes Venus Peoples M.D. - 09/28/2010 12:00 AM CST [id number] CHIEF COMPLAINT/ REASON FOR VISIT Fevers. HISTORY OF PRESENT ILLNESS Amairani is 10 years old and here with her mother. She began with illness on 09/24. She has had fevers, cough and runny nose. Temperature has been as high as 102 degrees. She has been receiving ibuprofen as well as some cough medicine before bed at night to help her sleep. Last night, she was awake. She coughed to point of vomiting. CURRENT MEDICATIONS Ibuprofen and cough medicine p.o. p.r.n.. ALLERGIES No known drug allergies. VITAL SIGNS WEIGHT: 35.2 kg TEMPERATURE: 37.8 HEART RATE: 96 RESPIRATORY RATE: 22 BLOOD PRESSURE: 96/54 PHYSICAL EXAM GENERAL: Tired appearing but otherwise comfortable. SKIN: She has some picked over scabs but no other significant lesions. EYES: No injection or drainage. ENT: Ears: Tympanic membranes with tympanosclerosis bilaterally. Otherwise, flat, shiny ross with good light reflex and no fluid seen. Nose with congestion and rhinorrhea. Mouth mucous membranes moist. Posterior pharynx pink. Tonsils surgically absent. HEART: Regular rate and rhythm without murmurs. LUNGS: Clear to auscultation bilaterally. IMPRESSION/REPORT/PLAN Acute upper respiratory infection. She has a febrile respiratory infection but clear lungs on exam. I recommend continued supportive cares. If she is still having fevers in a few days, I do recommend recheck of this illness. Certainly, she should return for any difficulty breathing. KSL/sks Signed Venus Peoples M.D. Digital Analytics Manager Electronically Signed By: VENUS PEOPLES MD On: 10/02/2010 04:21 Source: [facility] MHSDOLBEYNONRADSYS Document Id: [id number] ETS SALESPERSON documented in this encounter Miscellaneous Notes Miscellaneous - Venus Peoples M.D. - 09/28/2010 11:34 AM CST Ambulatory Patient Summary [address] [id number] Visit Information Name: AMAIRANI MARTINEZ Current Date: 09/28/2010 11:34:05 Primary Care Provider: VENUS PEOPLES MD [phone] Your Medications Here is a list of [...] No Appointments found Your Goals/Additional instructions: Source: [employer] Document Id: [id number] Electronically signed by Conversion, [employer] County Director Welfare [id number] at 01/09/2017 11:05 AM CDT Kya - Venus Peoples M.D. - 09/28/2010 11:34 AM CST [place] [address] Visit Information Name: AMAIRANI MARTINEZ Current Date: 09/28/2010 11:34:05 Primary Care Provider: VENUS PEOPLES MD [id number] AMAIRANI MARTINEZ has been given the following [...] mg Oral once a day Additional Information: Yes - Current list of reconciled medications is provided and explained to the patient and/or family, guardian/caregiver. Source: [employer] Document Id: [id number] Electronically signed by Conversion, [employer] County Director Welfare [id number] at 01/09/2017 11:05 AM CDGarima Boland - Chantell Sandoval - 09/28/2010 11:18 AM CST Pediatric Frame Hand Intake/History Pediatric Frame Hand Intake/History Entered On: 09/28/2010 11:20 CORSETS SALESPERSON Performed On: 09/28/2010 11:18 CORSETS SALESPERSON by CHANTELL UMANA Intake Ambulatory Intake Additional Information: started Thurs. Temps 102, ibuprofen and cough med at night. last night emesis after coughing. scarred tms, ow nml exam VENUS PEOPLES MD - 09/28/2010 11:33 CORSETS SALESPERSON Chief Complaint: fever, cough x 4 days Temperature Core: 37.8C(Converted to: 100.0DegF) Apical Heart Rate: 96/min (HI) Respiratory Rate: 22/min Systolic Blood Pressure: 96mmHg Diastolic Blood Pressure: 54mmHg NIBP Mean: 68mmHg BP Location: Right upper extremity Actual Weight: 35.200kg(Converted to: 77lb 10oz) Dosing Weight Clinic: 35.20kg CHANTELL UMANA - 09/28/2010 11:18 CORSETS SALESPERSON Subjective Pain Symptoms: No CHANTELL UMANA - 09/28/2010 11:18 CORSETS SALESPERSON Dependent Habits Tobacco Use/Currently Using: No CHANTELL UMANA - 09/28/2010 11:18 CORSETS SALESPERSON Allergy Allergies (Active) NKA Estimated Onset Date: Unspecified ; Created By: CHANTELL UMANA; Reaction Status: Active ; Category: Drug ; Substance: NKA ; Type: Allergy ; Updated By: CHANTELL UMANA; Reviewed Date: 09/28/201011:18 CORSETS SALESPERSON Source: [facility] POWERCHART Document Id: [id number] CORSETS SALESPERSON!3 ETS SALESPERSON documented in this encounter Plan of Treatment Not on filedocumented as of this encounter Visit Diagnoses Not on filedocumented in this encounter
--- OUTSIDE RECORDS SUMMARY | 2022-04-05 14:31 | XMS_ITS | Encounter Summary ---
:2000 Author Organization [facility] Address [address] [place] [address] Care Team Providers Name Role Phone Unavailable Primary Care Provider Unavailable Encounter Details Date Type Department Care Team Description 01/28/2012 Hospital Encounter HX [facility] P[facility] Tom Peoples M.D. [address] [place], [place] [address] (Wo rk) 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 Tobacco [...] - Inhaled Oxygen Concentration - - Weight 44.8 kg (98 lb 12.3 oz) 01/28/2012 3:20 PM CDT Height 153.5 cm (5' 0.43) 01/28/2012 3:20 PM CDT Body Mass Index 19.01 01/28/2012 3:20 PM CDT Body Mass Index Percentile 67.77 % 01/28/2012 3:20 PM CD T Growth Chart: CDC (Girls, 2-20 Years) documented in this encounter H&P Notes Venus Peoples M.D. - 01/28/2012 12:00 AM CDT [id number] CHIEF COMPLAINT/REASON FOR VISIT 11-year-old well-child visit HISTORY OF PRESENT ILLNESS Amairani is 11 and 4/12 years old, here with her mother for a checkup. No specific concerns today. Sindy remains somewhat of a picky eater. She drinks some milk. Growth looks appropriate. Amairani brushed teeth once or twice daily. I do recommend twice daily brushing. She has seen a dentist recently. She reports no sleep problems. CURRENT MEDICATIONS: Loratadine Redi-tablets by mouth p.r.n., currently not using. ALLERGIES: No known drug allergies. SYSTEMS REVIEW Positive for that mentioned in the history of present illness and past medical history. All other systems were reviewed and were negative. No menarche yet. VISION SCREENING Right eye 20/25, left eye 20/30 done with eyeglasses in place. HEARING SCREENING Please see EMR. She is showing some hearing loss in the left ear. PAST MEDICAL/SURGICAL HISTORY 1. Seasonal allergies. 2. Myopia, she has had a recent full eye exam. 3. History of mild pectus excavatum. 4. PE tube placement in 2003. 5. Tonsilloadenoidectomy and umbilical hernia repair in 2006. 6. Second set of PE tubes in April 2008. 7. Removal of impacted cerumen and retained PE tubes in May 2010. SOCIAL HISTORY She lives with her mother, stepfather and younger sister in a nonsmoking environment. Amairani will be in 6th grade and will be switching to the [employer] this fall. She does need some extra help with reading. FAMILY HISTORY Paternal grandmother of cancer at age 55. Paternal grandfather has heart disease. Maternal grandfather is of unknown cause. Mother has a history of dyslexia. VITAL SIGNS HEIGHT: 153.5 cm, 80th percentile WEIGHT: 44.8 kg, 75th percentile BMI: 19, 68th percentile TEMPERATURE: 37.4 HEART RATE: 80 RESPIRATORY RATE: 22 BLOOD PRESSURE: 104/60 PHYSICAL EXAM GENERAL: 11-year-old female who appears age appropriate. SKIN: No rash or jaundice. She has multiple picked at sores on her face and arms. Some mild acne over the forehead and nose. HEAD: Normocephalic. EYES: Conjunctivae noninjected; sclerae anicteric; lids without ptosis, edema or erythema; extraocular movements intact, pupils equal, round and reactive to light. Symmetric light reflex, normal fundi. ENT: Tympanic membranes ross, with good light reflex. The left tympanic membrane had significant scarring. Nose clear. Palate is complete. Dentition normal for age. Tonsils small and non-inflamed bilaterally. LYMPH NODES: No significant lymphadenopathy. THYROID: No thyromegaly. BREASTS: Without lesions. [place] three. PERIPHERAL PULSES: Normal pulses and perfusion. HEART: Regular rate and rhythm. Normal S1 and S2. No murmurs, gallops or rubs. LUNGS: Unlabored respirations; clear breath sounds; no wheezes, crackles, rales, rhonchi or retractions. ABDOMEN: Soft, without organomegaly. Bowel sounds normal. Nontender without rebound. No masses palpable. No distention. GENITALIA: Normal female genitalia. [place] three. SPINE: Straight with no lesions. JOINTS: Full range of motion about all joints. EXTREMITIES: No clubbing, cyanosis or edema. Normal upper and lower extremities. GAIT: No limp. Normal gait. MENTAL: Alert and oriented in no distress. Appropriate for age. NEURO: Normal reflexes; normal tone; no focal deficits appreciated. Cranial nerves II - XII intact. IMPRESSION/REPORT/PLAN 1. Normal growth and development. Age appropriate anticipatory guidance and safety issues were discussed. She received today hepatitis A #1, TDaP booster, Menactra and Gardasil #1. Next full physical exam is due in 1 year. Venus Peoples M.D./glt Electronically Signed By: VENUS PEOPLES MD On: 02/03/2012 03:20 PM Modified by and Electronically Signed by: VENUS PEOPLES MD On: 02/03/2012 03:20 PM Source: [facility] MHSDOLBEYNONRADSYS Document Id: [id number] documented in this encounter Procedure Notes Chantell Pisano - 01/28/2012 3:27 PM CDT Hearing Point of Care Testing - Audiometer Hearing Point of Care Testing - Audiometer Entered On: 01/28/2012 15:29 CDT Performed On: 01/28/2012 15:27 CDT by CHANTELL PISANO Hearing Point of Care Testing - Audiometer Left Ear Hearing POC Test Grid Left Ear 20 db Left Ear 25 db Left Ear 30 db Left Ear 40 db 500 Hz : No response Response Response Response 1000 Hz : No response Response Response Response 2000 Hz : Response Response Response Response 4000 Hz : Response Response Response Response CHANTELL PISANO - 01/28/2012 15:27 CDT CHANTELL PISANO - 01/28/2012 15:27 CDT CHANTELL PISANO - 01/28/2012 15:27 CDT CHANTELL PISANO - 01/28/2012 15:27 CDT Right Ear Hearing POC Test Grid Right Ear 20 db Right Ear 25 db Right Ear 30 db Right Ear 40 db 500 Hz : Response Response Response Response 1000 Hz : Response Response Response Response 2000 Hz : Response Response Response Response 4000 Hz : Response Response Response Response CHANTELL PISANO - 01/28/2012 15:27 CDT CHANTELL PISANO - 01/28/2012 15:27 CDT CHANTELL PISANO - 01/28/2012 15:27 CDT CHANTELL PISANO - 01/28/2012 15:27 CDT Source: [employer] Document Id: [id number] Chantell Pisano - 01/28/2012 3:22 PM CDT Vision Testing Vision Testing Entered On: 01/28/2012 15:23 CDT Performed On: 01/28/2012 15:22 CDT by CHANTELL PISANO Vision Testing Corrective Lenses : Glasses Eye, Right with Correction : 20/25 Eye, Left w/Correction : 20/30 CHANTELL PISANO - 01/28/2012 15:22 CDT Source: [employer] Document Id: [id number] documented in this encounter Miscellaneous Notes Miscellaneous - Venus Peoples M.D. - 01/28/2012 3:48 PM CDT Ambulatory Patient Summary [address] [address] Visit Information Name: AMAIRANI MARTINEZ Current Date: 01/28/2012 15:48:51 Physicians Attending Provider: VENUS PEOPLES MD Primary [...] disintegrating) 10 mg Oral once a day Attention: If you have any medications at [...] No Appointments found Your Goals/Additional instructions: Source: [facility] POWERCHART Document Id: [id number] Miscellaneous - Venus Peoples M.D. - 01/28/2012 3:48 PM CDT Ambulatory Depart Summary [id number] [place] [address] Visit Information Name: AMAIRANI MARTINEZ Visit Date: 01/28/2012 15:48:50 Attending Provider: VENUS PEOPLES MD Primary Care Provider: VENUS PEOPLES MD DONYA AMAIRANI ITZ has been given the following list of [...] disintegrating) 10 mg Oral once a day Attention: If you have any medications at home that are not on this list, DO NOT take them until youcontact your provider for clarification. Additional Information: Source: [facility] POWERCHART Document Id: [id number] Miscellaneous - Chantell Pisano - 01/28/2012 3:20 PM CDT Pediatric Special Events Fundraiser Intake/History Pediatric Special Events Fundraiser Intake/History Entered On: 01/28/2012 15:22 CDT Performed On: 01/28/2012 15:20 CDT by CHANTELL PISANO Intake Chief Complaint : well child Temperature Core : 37.4C(Converted to: 99.3DegF) Apical Heart Rate : 80/min Respiratory Rate : 22/min Systolic Blood Pressure : 104mmHg Diastolic Blood Pressure : 60mmHg NIBP Mean : 75mmHg BP Location : Left upper extremity Blood Pressure Cuff Size : Pediatric Height : 153.5cm(Converted to: 5ft 0inch(es), 60.43inch(es)) Actual Weight : 44.8kg(Converted to: 98lb 12oz) Weight Source : Standing scale Dosing Weight Clinic : 44.80kg Clinic BSA : 1.38 Body Mass Index : 19.01kg/m2 CHANTELL PISANO - 01/28/2012 15:20 CDT Subjective Pain Symptoms : No CHANTELL PISANO - 01/28/2012 15:20 CDT Dependent Habits Tobacco Use/Currently Using : No Smoking Status : Never smoker CHANTELL PISANO - 01/28/2012 15:20 CDT Allergy Allergies (Active) NKA Estimated Onset Date: Unspecified ; Created By: CHANTELL UMANA; Reaction Status: Active ; Category: Drug ; Substance: NKA ; Type: Allergy ; Updated By: CHANTELL UMANA; Reviewed Date: 01/28/201215:20 CDT Source: [facility] POWERCHART Document Id: [id number] documented in this encounter Plan of Treatment Not on filedocumented as of this encounter Visit Diagnoses Not on filedocumented in this encounter
--- OUTSIDE RECORDS SUMMARY | 2022-04-05 14:31 | XMS_ITS | Encounter Summary ---
:2000 Author Organization [facility] Address [address] [place] [address] Care Team Providers Name Role Phone Mary Farr M.D. Primary Care Provider Encounter Details Date Type Department Care Team Description 09/04/2014 Historical Ophthalmology [facility] Gentry Russell M.D. [address] [place], [place] [phone] (Wo rk) 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 Tobacco Use Types Packs/Day Years Used Date Smoking Tobacco: Never Assessed Sex Assigned at Date Recorded Not on file documented as of this encounter Progress Notes Gentry Russell M.D. - 09/04/2014 3:56 PM CST Eye General CHIEF COMPLAINT Increased headaches for 2 weeks HISTORY OF PRESENT ILLNESS Pt has had more headaches for the last 2 weeks. Gets them during the afternoon. Has headaches on theweekends, too, but less severe. Prism no longer in the glasses since last visit. IMPRESSION / REPORT / PLAN #1 Myopia both eyes. Increased from previous exam. Plan: Update glasses. F/u six months. INT DIAGNOSIS #1 Myopia both eyes. CDM Reports - EYEGEN Id: [id number] Status: Fnl documented in this encounter Plan of Treatment Not on filedocumented as of this encounter Visit Diagnoses Not on filedocumented in this encounter Additional Health Concerns Assessment Noted Time PHQ-9 Depression Total Score: 1 04/22/2014 12:46 PM CD T documented as of this encounter Care Teams Jacquard Lace Weaver Relationship Specialty Start Date End Date Mary Farr M.D. PCP - General 01/20/17 02/03/17 documented as of this encounter
--- OUTSIDE RECORDS SUMMARY | 2022-04-05 14:31 | XMS_ITS | Encounter Summary ---
:2000 Author Organization [facility] Address [address] [place] [address] Care Team Providers Name Role Phone Unavailable Primary Care Provider Unavailable Encounter Details Date Type Department Care Team Description 09/22/2012 Hospital Encounter HX [facility] David Cortez M.D. [address], [place] [phone] (Wo rk) 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 Tobacco Use Types Packs/Day Years Used Date Smoking Tobacco: Never Assessed Sex Assigned at Date Recorded Not on file documented as of this encounter Plan of Treatment Not on filedocumented as of this encounter Visit Diagnoses Not on filedocumented in this encounter
--- OUTSIDE RECORDS SUMMARY | 2022-04-05 14:31 | XMS_ITS | Encounter Summary ---
:2000 Author Organization [facility] Address [address] [place] [address] Care Team Providers Name Role Phone Unavailable Primary Care Provider Unavailable Encounter Details Date Type Department Care Team Description 06/15/2016 Hospital Encounter HX NO MAPPING Mer Encarnacion, DUSTY, C.N.P. [address] [place], [place] [phone] (Wo rk) 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 Tobacco Use Types Packs/Day Years Used Date Smoking Tobacco: Never Assessed Sex Assigned at Date Recorded Not on file documented as of this encounter Miscellaneous Notes Miscellaneous - Conversion, Historical Provider Ser - 06/15/2016 11:59 PM APPLICATION DEVELOPMENT INTERN Coding Summary-Paper Based CODING DATE: 06/24/2016 FINAL [facility] STATUS: * Discharged to Home or Self Care [facility] AD[facility] DX: REASON FOR VISIT DX: FINAL DX: PRINCIPAL: J02.9 Acute pharyngitis, unspecified SECONDARY: PROCEDURES DOCTOR NAME DATE NOTE: The code number assigned matches the documented diagnosis and / or procedure in the patient's chart. However, the narrative phrase printed from the coding software may appear abbreviated, or result in slightly different terminology. Coded By: NOEL MOSS Date Saved: 06/24/2016 11:23 am Source: Modality Document Id: [id number] documented in this encounter Plan of Treatment Not on filedocumented as of this encounter Visit Diagnoses Not on filedocumented in this encounter Additional Health Concerns Assessment Noted Time PHQ-9 Depression Total Score: 1 04/22/2014 12:46 PM CD T documented as of this encounter
--- OUTSIDE RECORDS SUMMARY | 2022-04-05 14:31 | XMS_ITS | Encounter Summary ---
:2000 Author Organization [facility] Address [address] [place] [address] Care Team Providers Name Role Phone Unavailable Primary Care Provider Unavailable Encounter Details Date Type Department Care Team Description 02/15/2012 Hospital Encounter HX [facility] Tom Wellington M.D. [address] [place], [place] [address] (Wo rk) 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 Tobacco [...] - Inhaled Oxygen Concentration - - Weight 44 kg (97 lb) 02/15/2012 10:29 AM CDT Height - - Body Mass Index - - documented in this encounter Progress Notes Venus Wellington M.D. - 02/15/2012 12:00 AM CDT [id number] CHIEF COMPLAINT/REASON FOR VISIT Ear pain HISTORY OF PRESENT ILLNESS Amairani is 11 years old, here with her sister and I believe her father. Amairani has been swimming quite a bit this past week. She began complaining of left ear pain a couple of days ago and now she has ear pain in both ears. Also, her left jaw has been hurting. She has had no cough or cold symptoms. There have been no fevers. This morning, she has a new problem. She has some belly pain and nausea. No vomiting or diarrhea. She reports no constipation, but says she does not have a bowel movement everyday. CURRENT MEDICATIONS 1. Cortisporin otic 4 drops, both ears, twice daily for 7 days. 2. Loratadine by mouth p.r.n., currently not using. ALLERGIES No known drug allergies. PAST MEDICAL/SURGICAL HISTORY Seasonal allergies. She has had a couple sets of ear tubes, as well as surgical removal of the ear tubes. Status-post umbilical hernia repair and tonsilloadenoidectomy in 2006. VITAL SIGNS Please see EMR for normal vitals. PHYSICAL EXAMINATION GENERAL: She appears mildly uncomfortable. EYES: No injection or drainage. ENT: Ears: Papules and comedonal lesions in the external ears. Left external canal appears wet, erythematous and macerated. Right external canal similar though milder. Eardrums are flat bilaterally without fluid or significant erythema. Mouth: Mucous membranes moist. Posterior pharynx pink. Tonsils surgically absent. LYMPH NODES: No significant cervical lymphadenopathy. HEART: Regular rate and rhythm, S1-S2, without murmurs. LUNGS: Clear to auscultation bilaterally. ABDOMEN: Soft, nontender, nondistended. No hepatosplenomegaly or masses. IMPRESSION/REPORT/PLAN 1. Bilateral acute otitis externa. Prescription sent for Cortisporin otic. Also did recommend to keep her head up above the water until they are feeling better and when she swims again to use ear plugs. 2. Nausea and belly pain. This just started within the last couple of hours and recommend watchful waiting for now. Venus Wellington M.D./markie Electronically Signed By: VENUS WELLINGTON MD On: 02/17/2012 08:47 AM Source: [facility] MHSDOLBEYNONRADSYS Document Id: [id number] documented in this encounter Miscellaneous Notes Miscellaneous - Venus Wellington M.D. - 02/15/2012 10:41 AM CDT Ambulatory Patient Summary [address] [id number] Visit Information Name: AMAIRANI MARTINEZ Current Date: 02/15/2012 10:41:54 Physicians Attending Provider: VENUS WELLINGTON MD Primary Care Provider: VENUS WELLINGTON MD Your Medications Here is a list of your medications. It is important to take your medications as directed. Use a pillbox or chart to help remind you to take your medications. Please let your doctor or nurse know if you have problems taking your medications. Medication/Strength Dose Route Frequency Indications/Special Instructions/Comments neomycin/polymyxin B/hydrocortisone otic (Cortisporin Otic suspension) 4 drop(s) Ears (Both) two times a day for 7 Days loratadine (Loratadine Reditab 10 mg oral tablet, [...] No Appointments found Your Goals/Additional instructions: Source: [facility] POWERCHART Document Id: [id number] Miscellaneous - Venus Wellington M.D. - 02/15/2012 10:41 AM CDT Ambulatory Depart Summary [place] [id number] [facility] [place] [address] Visit Information Name: AMAIRANI MARTINEZ Visit Date: 02/15/2012 10:41:53 Attending Provider: VENUS WELLINGTON MD Primary Care Provider: VENUS WELLINGTON MD AMAIRANI MARTINEZ has been given the following list of medications: Your Medications It is important to take your medications as directed. Use a pill box or chart to help remind you to take your medications. Please let your doctor or nurse know if you have problems taking your medications. Medication/Strength Dose Route Frequency Indications/Special Instructions/Comments neomycin/polymyxin B/hydrocortisone otic (Cortisporin Otic suspension) 4 drop(s) Ears (Both) two times a day for 7 Days loratadine (Loratadine Reditab 10 mg oral tablet, disintegrating) 10 mg Oral once a day Attention: If you have any medications at home that are not on this list, DO NOT take them until youcontact your provider for clarification. Additional Information: [facility] Document Id: [id number] Miscellaneous - Nikki Pisano - 02/15/2012 10:29 AM CDT Pediatric Preparatory Technician Intake/History Pediatric Preparatory Technician Intake/History Entered On: 02/15/2012 10:31 CDT Performed On: 02/15/2012 10:29 CDT by NIKKI PISANO Intake Chief Complaint : c/o ears hurting, now stomach started hurting this morning Temperature Core : 37.6C(Converted to: 99.7DegF) Apical Heart Rate : 80/min Respiratory Rate : 20/min Systolic Blood Pressure : 94mmHg Diastolic Blood Pressure : 52mmHg NIBP Mean : 66mmHg BP Location : Left upper extremity Blood Pressure Cuff Size : Pediatric Actual Weight : 44kg(Converted to: 97lb 0oz) Weight Source : Standing scale Dosing Weight Clinic : 44.00kg NIKKI PISANO - 02/15/2012 10:29 CDT Subjective Pain Symptoms : No NIKKI PISANO - 02/15/2012 10:29 CDT Dependent Habits Tobacco Use/Currently Using : No Smoking Status : Never smoker NIKKI PISANO - 02/15/2012 10:29 CDT Allergy Allergies (Active) NKA Estimated Onset Date: Unspecified ; Created By: NIKKI UMANA; Reaction Status: Active ; Category: Drug ; Substance: NKA ; Type: Allergy ; Updated By: NIKKI UMANA; Reviewed Date: 02/15/201210:28 CDT [facility] Document Id: [id number] documented in this encounter Plan of Treatment Not on filedocumented as of this encounter Visit Diagnoses Not on filedocumented in this encounter
--- OUTSIDE RECORDS SUMMARY | 2022-04-05 14:31 | XMS_ITS | Encounter Summary ---
:2000 Author Organization [facility] Address [address] [place] [address] Care Team Providers Name Role Phone Unavailable Primary Care Provider Unavailable Encounter Details Date Type Department Care Team Description 12/10/2015 Hospital [facility] Sa manolo Farr M.D. [phone] (Wo rk) 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 Tobacco Use Types Packs/Day Years Used Date Smoking Tobacco: Never Assessed Sex Assigned at Date Recorded Not on file documented as of this encounter Last Filed Vital Signs Vital Sign Reading Time Taken Comments Blood Pressure - - Pulse - - Temperature - - Respiratory Rate - - Oxygen Saturation - - Inhaled Oxygen Concentration - - Weight 62 kg (136 lb 11 oz) 12/10/2015 4:30 PM CDT Height 164 cm (5' 4.57) 12/10/2015 4:30 PM CDT Body Mass Index 23.05 12/10/2015 4:30 PM CDT Body Mass Index Percentile 79.05 % 12/10/2015 4:30 PM CD T Growth Chart: CDC (Girls, 2-20 Years) documented in this encounter Progress Notes Mary Farr M.D. - 12/10/2015 12:20 PM CDT Clinic Full Note CHIEF COMPLAINT/REASON FOR VISIT tired for a week, concerned about mono, CASTILLO's every other day HISTORY OF PRESENT ILLNESS Amairani is here with her mother, Lilo. Amairani complains of feeling tired, in spite of going to bed at 9 p.m. and getting up at 6 a.m. So she feels that she's getting enough sleep. She's been complaining that she is too tired to go to school; stayed home from school this morning,feels exhausted. General health: She's not sick too much. Has missed 4-5 days of school, for cramps. Menstrual periods: Regular, about once a month, normal duration. Sometimes uses Midol. Not vomiting. She has reached her maximum height and her weight is stable. No polydipsia or polyphagia. MEDICATIONS No active medications ALLERGIES NKA PAST [...] general anesthesia.. (2003). SOCIAL HISTORY Date Time: 12/10/2015 16:30 Tobacco: Smoking Status: Never smoker Exposure: Care provider denies smoking in home Alcohol: Use: No Results Found Recreational Drugs: Use: No Results Found Type: No Results Found FAMILY HISTORY Mother:Positive: Dyslexia Grandfather:Positive: Coronary artery disease SYSTEMS REVIEW Skin: Has acne, but no other rashes. ENT: No snoring, no recurrent sore throats. Respiratory: No history of chronic cough or wheezing. Heart: No heart murmurs, normal exercise tolerance. GI: States she has regular bowel movements and eats normally. VITAL SIGNS T: 37 ??C (Core) HR: 72 RR: 16 BP: 110 / 60 HT: 164 cm WT: 62 kg BMI: 23.05 PHYSICAL EXAMINATION General: Comfortable and cooperative. Skin: Acne, with a number of primary lesions, no nodules. Eyes: Free of injection or discharge. ENT: Tympanic membranes shiny without middle ear effusion. Normal nasal respirations. Pharynx without erythema. Some malocclusion and gingivitis. Lymph Nodes No cervical or supraclavicular lymphadenopathy. Heart: Normal S1 and S2 without murmurs. S2 splits physiologically. Lungs: Clear to auscultation. Abdomen: Soft and non tender. No hepatosplenomegaly or masses. LAB RESULTS Hgb: 13.6 12/10/15 Hct: 39.4 12/10/15 WBC: 8.4 12/10/15 RBC: 4.58 12/10/15 MCV: 86.0 12/10/15 RDW: 12.9 12/10/15 Platelet: 309 12/10/15 Neutro Absolute: 4.58 12/10/15 Lymph Absolute: 2.88 12/10/15 [place] Absolute: 0.81 High 12/10/15 Eos Absolute: 0.08 12/10/15 Baso Absolute: 0.02 12/10/15 Mononucleosis screen: Negative. Ferritin level: normal at 37. IMPRESSION/REPORT/PLAN Fatigue NOS there are no signs on exam or laboratory testing of a chronic underlying illness or serious medicalcondition. Reassurance. A women's formula vitamin with iron is a good idea but she does not need to take medicinal doses of iron, as her ferritin level is normal. Electronically Signed By: MARY FARR MD On: 12/13/2015 12:23 PM Source: [facility] POWERCHART Document Id: [id number] documented in this encounter Miscellaneous Notes Miscellaneous - Mary Farr M.D. - 12/13/2015 12:25 PM CDT Normal Results Letter December 13, 2015 AMAIRANI MARTINEZ [address] [facility] [id number] Dear AMAIRANI MARTINEZ, I am pleased to report that your results from the following diagnostic test(s) are normal. Please follow up with us as we discussed during your visit or sooner if you have any concerns. If you have questions or concerns, please do not hesitate to call our office. The ferritin level is back now and is normal at 37. This reflects iron stores; you are not iron deficient. However, it is a good idea to take a daily women's formula vitamin with iron. Also, try to drink twofull water bottles daily. Result Name Current Result Normal Range WBC (x10(9)/L) 8.4 12/10/2015 4.1 - 8.9 RBC (x10(12)/L) 4.58 12/10/2015 4.10 - 5.20 Hgb (g/dL) 13.6 12/10/2015 12.2 - 14.8 Hct (%) 39.4 12/10/2015 36.3 - 43.4 MCV (fL) 86.0 12/10/2015 80.0 - 92.0 Platelet (x10(9)/L) 309 12/10/2015 150 - 450 RDW (%) 12.9 12/10/2015 11.2 - 13.5 Neutro Absolute (10(9)/L) 4.58 12/10/2015 1.80 - 8.00 Lymph Absolute (x10(9)/L) 2.88 12/10/2015 1.20 - 5.20 [place] Absolute (x10(9)/L) (H) 0.81 12/10/2015 0.00 - 0.80 Eos Absolute (x10(9)/L) 0.08 12/10/2015 0.00 - 0.50 Baso Absolute (x10(9)/L) 0.02 12/10/2015 0.00 - 0.20 tFerritin Lvl (ng/mL) 37.0 12/10/2015 11.0 - 307.0 Sincerely, MARY FARR [address] [facility] [place] [address] Electronic Signature Electronically Signed By: MARY FARR MD On: December 13, 2015 This document has images extracted. Source: [facility] POWERCHART Document Id: [id number] Electronically signed by Conversion, [facility] Instructional Technologist [id number] at 01/01/2017 1:11 PM CDT Miscellaneous - Mary Farr M.D. - 12/10/2015 5:16 PM CDT Ambulatory Patient Summary [address] [facility] [place] [id number] Visit Information Name: AMAIRANI MARTINEZ [facility] Number: [id number] Current Date: 12/10/2015 17:16:18 Physicians Attending Provider: MARY FARR MD Primary Care Provider: MARY FARR MD AMAIRANI MARTINEZ has been given the [...] the Following Medications: Medication list as of 12-10-15 17:16 Attention: If you have any medications at [...] Electronically Signed By: MARY FARR MD Signed On:10-DEC-2015 17:13:52 Your Allergies & Intolerances Substance Reaction Symptoms [...] dont have one. Go to [email or web address] and click on Create Your Account. Then, follow the directions to complete the online form. Youll be asked for your [facility] number which you can find at the top of this document. Your Goals/Additional instructions: -Your hemoglobin is normal at 13.6 and your mono test is normal.Your ferritin level (which reflects your iron stores) is pending and we will contact you with that. I do recommend a Vitamin D supplement, 400 IU per day, which you can buy over the counter. Usually comes as 400 IU or 1,000 IU and the 400 is fine. Try to drink a full 24 ounce water bottle before goingto school, and another when you get home. Limit Tylenol or ibuprofen to no more than one or two doses per week. Source: [facility] Turbocoating Document Id: [id number] Miscellaneous - Mary Farr M.D. - 12/10/2015 5:16 PM CDT Ambulatory Discharge Medication List [address] [id number] Visit Information Name: DONYA, AMAIRANICHESTER MOBLEY [facility] Number: [id number] Visit Date: 12/10/2015 17:16:17 Attending Provider: MARY FARR MD Primary Care Provider: MARY FARR MD DONYAINESSAAMAIRANICHESTER NICOLELENNIE has been given the following list of [...] the Following Medications: Medication list as of 12-10-15 17:16 Attention: If you have any medications at [...] Electronically Signed By: MARY FARR MD Signed On:10-DEC-2015 17:13:52 Additional Information: Source: [facility] Northern BrewerCHART Document Id: [id number] Miscellaneous - Amelie Christie L.P.N. - 12/10/2015 4:30 PM CDT Pediatric Hand Touch Up Painter Intake/History Pediatric Hand Touch Up Painter Intake/History Entered On: 12/10/2015 16:34 CDT Performed On: 12/10/2015 16:30 CDT by AMELIE CHRISTIE LPN Intake Chief Complaint : tired for a week, concerned about mono, CASTILLO's every other day Temperature Core : 37 DegC(Converted to: 98.6 DegF) Peripheral Pulse Rate : 72 /min Respiratory Rate : 16 /min Heart Rhythm : Regular Systolic Blood Pressure : 110 mmHg Diastolic Blood Pressure : 60 mmHg NIBP Mean : 77 mmHg BP Location : Left upper extremity Blood Pressure Cuff Size : Regular Height : 164 cm(Converted to: 5 ft 5 inch(es), 65 inch(es)) Actual Weight : 62 kg(Converted to: 136 lb 11 oz) Weight Source : Standing scale Dosing Weight Clinic : 62 kg Clinic BSA : 1.68 Body Mass Index : 23.05 kg/m2 AMELIE CHRISTIE LPN - 12/10/2015 16:30 CDT General Info Languages : Prydeinig Is Patient Female and 13-50 no hysterectomy : Yes Status : Patient denies Are you ? : No AMELIE CHRISTIE LPN - 12/10/2015 16:30 CDT Subjective Pain Symptoms : No AMELIE CHRISTIE LPN - 12/10/2015 16:30 CDT Dependent Habits Exposure to Tobacco Smoke : Care provider denies smoking in home Smoking Status : Never smoker Tobacco 2A : No Tobacco Use/Currently Using : No Tobacco Use/Last 30 Days : No Tobacco Use/Last 12 months : No AMELIE CHRISTIE LPN - 12/10/2015 16:30 CDT [facility]: [facility] POWERCHART Document Id: [id number] documented in this encounter Plan of Treatment Not on filedocumented as of this encounter Procedures Procedure Name Priority Date/Time Associated Comments Diagnosis POCT MONONUCLEOSIS Routine 12/10/2015 5:09 PM Res ults for this SCREEN CDT procedure are i n the results section. AUTOMATED Routine 12/10/2015 5:02 PM Results f or this DIFFERENTIAL, B CDT procedure ar e in the results section. CBC WITH DIFFERENTIAL, Routine 12/10/2015 5:02 PM Results for this B CDT procedure are i n the results section. FERRITIN, S Routine 12/10/2015 5:02 PM Results f or this CDT procedure are i n the results section. documented in this encounter Results Mononucleosis Screen, POCT (12/10/2015 5:09 PM CDT) [facility] Time Signature Infectious POWERCHART [place] Test, S HXFinal Negative POWERCHART HXFinal Reference: POWERCHART Negative Specimen (Source) Anatomical Collection Method Collection Time Re ceived Time Location / / Volume Laterality Blood 12/10/2015 5:09 PM CDT Mary Farr M.D. LAB POCT ORDERABLES-MANUAL Performing Organization Address City/State/ZIP Code Phon e Number POWERCHART (ABNORMAL) Automated Differential (12/10/2015 5:02 PM CDT) [facility] gist Method Time Signature Absolute 4.58 1.80 - POWERCHART Neutrophils 8.00 109L Lymphocytes 2.88 1.20 - POWERCHART 5.20 X109L Monocytes 0.81 (H) 0.00 - POWERCHART 0.80 X109L Eosinophils 0.08 0.00 - POWERCHART 0.50 X109L Absolute 0.02 0.00 - POWERCHART Basophil 0.20 X109L Specimen Anatomical Collection Method Collection Time Receive d Time (Source) Location / / Volume Laterality Blood 12/10/2015 5:02 PM 6 5:02 CDT PM CDT Mary Farr M.D. LAB BLOOD ADD-ON Performing Organization Address City/State/ZIP Code Phon e Number POWERCHART CBC with Differential (12/10/2015 5:02 PM CDT) P athologist Signature Leukocytes 8.4 4.1 - 8.9 POWERCHART X109L Erythrocytes 4.58 4.10 - 5.20 POWERCHART [id number] Hemoglobin 13.6 12.2 - 14.8 POWERCHART GDL Hematocrit 39.4 36.3 - 43.4 POWERCHART MCV 86.0 80.0 - 92.0 POWERCHART FL Platelet Count 309 150 - 450 POWERCHART X109L HX RDW 12.9 11.2 - 13.5 POWERCHART Specimen (Source) Anatomical Collection Method Collection Time Re ceived Time Location / / Volume Laterality Blood 12/10/2015 5:02 PM CDT Mary Farr M.D. LAB BLOOD ADD-ON Performing Organization Address City/State/ZIP Code Phon e Number POWERCHART Ferritin (12/10/2015 5:02 PM CDT) P athologist Signature Ferritin, S 37.0 11.0 - POWERCHART 307.0 NGML Specimen (Source) Anatomical Collection Method Collection Time Re ceived Time Location / / Volume Laterality Blood 12/10/2015 5:02 PM CDT Mary Frar M.D. LAB BLOOD ADD-ON Performing Organization Address City/State/ZIP Code Phon e Number POWERCHART documented in this encounter Visit Diagnoses Not on filedocumented in this encounter Additional Health Concerns Assessment Noted Time PHQ-9 Depression Total Score: 1 04/22/2014 12:46 PM CD T documented as of this encounter
--- OUTSIDE RECORDS SUMMARY | 2022-04-05 14:31 | XMS_ITS | Encounter Summary ---
:2000 Author Organization [facility] Address [address] [place] [address] Care Team Providers Name Role Phone Unavailable Primary Care Provider Unavailable Encounter Details Date Type Department Care Team Description 11/14/2013 Hospital Encounter HX [facility] Tha Hanley M.D. [address] [place], [place] [phone] (Wo rk) 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 Tobacco Use Types Packs/Day Years Used Date Smoking Tobacco: Never Assessed Sex Assigned at Date Recorded Not on file documented as of this encounter Progress Notes Windy Gutierrez, C.O.A. - 11/14/2013 4:22 PM CDT [facility] Services [facility] Exam [facility] Exam Entered On: 11/14/2013 16:27 CDT Performed On: 11/14/2013 16:22 CDT by WINDY GUTIERREZ Chief Complaint and History Chief Complaint : Routine exam, Headache Pain Symptoms : No Smoking Status : Never smoker WINDY GUTIERREZ - 11/14/2013 16:22 CDT Vision Testing Right Eye Vision Testing : With glasses - primary, 20/25 Left Eye Vision Testing : With glasses - primary, 20/30, -1 Near Vision Both Eyes : With glasses - primary, J-2 WINDY GUTIERREZ - 11/14/2013 16:22 CDT Refraction Right Eye Manifest Grid Date : 09/22/2012 OYSTER HARVESTER 11/14/2013 CDT Performed by : Anni Sphere : -3.50 -3.75 Visual Acuity Distance : 20/20 20/20 Visual Acuity Near : 20/20 WINDY GUTIERREZ RIKKI - 11/14/2013 16:22 CDT BILLY GUTIERREZYSTAL RIKKI - 11/14/2013 16:22 CDT Left Eye Manifest Grid Date : 09/22/2012 OYSTER HARVESTER 11/14/2013 CDT Performed by : Anni Sphere : -3.50 -3.75 Visual Acuity Distance : 20/20 20/20 Visual Acuity Near : 20/20 WINDY GUTIERREZ RIKKI - 11/14/2013 16:22 CDT WINDY GUTIERREZ RIKKI - 11/14/2013 16:22 CDT Ocular Testing EOMS : Normal Comment : 4-3 4-3 Pupils : PERRLA Confrontation Lea : RE Normal, LE Normal WINDY GUTIERREZ RIKKI - 11/14/2013 16:22 CDT Eye Drops Exam Child Mix Eye Drop Eye : Both eyes Child Mix Eye Drop Time : 16:27 OYSTER HARVESTER Child Mix Eye Drop Comment : vco WINDY GUTIERREZ RIKKI - 11/14/2013 16:22 CDT Source: [facility] POWERCHART Document Id: [id number] CDT!41 documented in this encounter H&P Notes Gentry Cruz M.D. - 11/14/2013 4:09 PM CDT [id number] CHIEF COMPLAINT/REASON FOR VISIT Routine ophthalmic exam. IMPRESSION/REPORT/PLAN Increased myopia, both eyes. PLAN: Update glasses prescription. Follow up in 1 year. Gentry Cruz M.D./ladan Electronically Signed By: GENTRY CRUZ MD On: 11/15/2013 08:00 AM Source: [facility] MHSDOLBEYNONRADSYS Document Id: [id number] documented in this encounter Miscellaneous Notes Miscellaneous - Gentry Cruz M.D. - 11/14/2013 4:45 PM CDT Ambulatory Patient Summary [facility] [address] [place] [id number] Visit Information Name: AMAIRANI MARTINEZ [facility] Number: [id number] Current Date: 11/14/2013 16:45:19 Physicians Attending Provider: GENTRY CRUZ MD Primary [...] the Following Medications: Medication list as of 11-14-13 16:45 Attention: If you have any medications at [...] Electronically Signed By: GENTRY CRUZ MD Signed On:14-NOV-2013 16:45:17 Your Allergies & Intolerances Substance Reaction Symptoms Category Comments No Known Allergies Drug Your Problem List Problem Status Onset Comments Allergic Rhinitis, Cause Unspecified Active 04/10/2010 Myopia Active Pectus Excavatum Active Hearing loss L, low tone Active 03/15/2013 Your Upcoming Appointments Date Time Location Reason Provider No Appointments found Attention: Contact your local Clinic if further appointment detail needed. Your Goals/Additional instructions: Source: [facility] POWERCHART Document Id: [id number] Miscellaneous - Gentry Cruz M.D. - 11/14/2013 4:45 PM CDT Ambulatory Discharge Medication List [facility] [address] [place], [place] [address], [place] [id number] Visit Information Name: AMAIRANI MARTINEZ [facility] Number: [id number] Visit Date: 11/14/2013 16:45:18 Attending Provider: GENTRY CRUZ MD Primary Care Provider: VENUS WELLINGTON MD AMAIRANI AMRTINEZ has been given the following list of [...] the Following Medications: Medication list as of 11-14-13 16:45 Attention: If you have any medications at [...] Electronically Signed By: GENTRY CRUZ MD Signed On:14-NOV-2013 16:45:17 Additional Information: Source: [facility] POWERCHART Document Id: [id number] documented in this encounter Plan of Treatment Not on filedocumented as of this encounter Visit Diagnoses Not on filedocumented in this encounter
--- OUTSIDE RECORDS SUMMARY | 2022-04-05 14:32 | XMS_ITS | Encounter Summary ---
:2000 Author Organization [facility] Address [address] [place] [address] Care Team Providers Name Role Phone Unavailable Primary Care Provider Unavailable Encounter Details Date Type Department Care Team Description 05/14/2010 Hospital Encounter HX [facility] ENT Provider, Historic al 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 Tobacco Use Types Packs/Day Years Used Date Smoking Tobacco: Never Assessed Sex Assigned at Date Recorded Not on file documented as of this encounter Last Filed Vital Signs Vital Sign Reading Time Taken Comments Blood Pressure - - Pulse - - Temperature - - Respiratory Rate - - Oxygen Saturation - - Inhaled Oxygen Concentration - - Weight 35.3 kg (77 lb 13.2 oz) 05/14/2010 2:20 PM CDT Height - - Body Mass Index - - documented in this encounter Consult Notes Conversion, Historical Provider Ser - 05/14/2010 12:00 AM CDT [id number] IMPRESSION/REPORT/PLAN 1. Chronic suppurative otitis media of the left ear. 2. Chronic eustachian tube dysfunction. 3. Conductive hearing los of the left ear which is mild. 4. Hypertrophy of the nasal turbinates. 5. Chronic and recurrent rhinitis and possible allergic rhinitis. DISCUSSION AND PLAN I recommend that the patient go to the operating room to remove the old pressure equalizing tube that is present in the left ear. I discussed with the patient's mother that I could try to remove this in the office but in children of this age sometimes that can be difficult. I told the mother that if there are financial concerns about going to the operating room I could go ahead and attempt to remove the pressure equalizing tube in the office. Frequently removing the pressure equalizing tube in the operating room is more beneficial in that the ear can be thoroughly cleaned and this will help the ear to heal quicker. In the operating room I can thoroughly irrigate the ear and try to remove as much granulation tissue as possible. I can also assess whether there is any evidence of cholesteatoma in the middle ear at the same time. I discussed with the mother that sometimes a cholesteatoma can develop in this clinical situation. I discussed with the patient's mother also that if a perforation remains in the left tympanic membrane that a few months from now the patient may need to have myringoplasty. I don't recommend doing a myringoplasty at this time due to the chronic infection. I discussed with the patient's mother that there is over a 90% chance that the tympanic membrane and middle ear will heal well and that there will not be a residual perforation but I discussed that there is a risk of the perforation remaining in the left tympanic membrane. By definition with the pressure equalizing tube in the tympanic membrane there is a perforation at this time. The patient's mother understands the risks of this procedure and alternative. She understands the risks and alternatives to general anesthesia and she understands why I plan on taking the child to the operating room to do this procedure. The patient's mother and child will also return for one more visit prior to surgery and at that time I will make sure to answer all of her questions once again. I discussed with them at this time that I don't feel that using antibiotic ear drops or oral antibiotic therapy would be of much benefit. The patient and the patient's mother will return to see me sometime within the next few weeks. We will plan on doing the surgery sometime within the next 6-8 weeks. I would appreciate it if Dr. Peoples could do a preoperative history and physical examination on this patient. This is an option but it would be greatly appreciated. CHIEF COMPLAINT/REASON FOR VISIT Requesting physician: Kaylin Peoples M.D. Reason for consultation: Chronic suppurative otitis media. Thank you very much for sending this patient. Chief complaint: Chronic infection of the left ear. HISTORY OF PRESENT ILLNESS The patient is status post bilateral myringotomy and tube surgery in February of 2008. The patient also had a tonsillectomy and probable adenoidectomy at that time. The patient also had bilateral myringotomy and tube surgery in 2003. The patient has been having chronic problems with her left ear for the last several months. She's been having drainage. She's been on multiple courses of antibiotic therapy but the suppurative otitis media persists. The patient has intermittent mild pain. She denies having any severe pain. Her pain has been a level 2 on a level 10 grade of pain. She denies having any tinnitus or popping in the ears. She also denies having any symptoms that would be consistent with vertigo. SYSTEMS REVIEW The patient's past medical history, family medical history, social history and her complete review of systems were all discussed in detail with the patient and the patient's mother. The patient's mother completed a 3-page questionnaire that has now been scanned into the electronic medical record. I've added additional notes to that 3-page questionnaire in a thorough discussion with the patient's mother. PAST MEDICAL/SURGICAL HISTORY The patient's past medical history is documented in the 3-page questionnaire that has now been scanned into the electronic medical record. I've added additional notes to that 3-page questionnaire in a thorough discussion with the patient's mother. SOCIAL HISTORY The patient's social history is documented in the 3-page questionnaire that has now been scanned into the electronic medical record. I've added additional notes to that 3-page questionnaire in a thorough discussion with the patient's mother. FAMILY HISTORY The patient's family medical history is documented in the 3-page questionnaire that has now been scanned into the electronic medical record. I've added additional notes to that 3-page questionnaire in a thorough discussion with the patient's mother. PHYSICAL EXAM AREA EXAM TEXT GENERAL The patient has a normal general appearance with a normal body habitus. The patient seems to have a normal ability to communicate and has a normal quality of voice. SKIN There is no abnormality of the skin of the face or of the neck that can be appreciated. HEAD No scars or lesions can be visualized grossly on examination of the face or neck. With palpation and percussion of the face there is no definite presence of sinus tenderness. Examination of the salivary glands is within normal limits bilaterally. The patient's facial strength is normal bilaterally. EYES The extraocular motility is within normal limits and primary gaze alignment seems to be within normal limits grossly bilaterally. ENT Ears: Examination of the external auditory canals is within normal limits bilaterally. For the left ear there is an old pressure equalizing tube in the inferior tympanic membrane. There is granulation tissue surrounding the pressure equalizing tube and also granulation tissue within the lumen of the pressure equalizing tube. There is no significant purulence seen at this time but I am sure that this ear is having recurrent drainage. There is a possible cholesteatoma in the middle ear space although no cholesteatoma could be seen. The right tympanic membrane shows tympanosclerosis but there is no evidence of otitis media. There is full mobility of the right tympanic membrane with pneumo-otoscopy.. Assessment of the hearing and gross clinical speech service worker helper thresholds are at least close to being normal grossly for both ears. Inspection of the auricles shows each auricle to be within normal limits bilaterally. Nose: The nasal dorsum and tip are without significant gross deviation or deformity. The nasal mucosa is within normal limits. No nasal discharge can be seen on either side of the nose. The turbinates show hypertrophy bilaterally. There is deviation of the nasal septum. No nasal discharge is seen. Oral Cavity: The lips and buccal mucosa are within normal limits. The tongue is within normal limits. [place]'s and Stensen's ducts are within normal limits bilaterally. Oropharynx: The oropharynx shows no erythema. The tonsils are of minimal size or have been removed. The uvula is in the midline and the soft palate is within normal limits. Nasopharynx: Examination of the nasopharynx shows a normal appearance of the mucosa for the portions seen Neck: Examination of the neck shows no masses or asymmetry in tracheal position. Examination of the thyroid shows no enlargement and there is no tenderness in the thyroid. There is no evidence of cervical adenopathy bilaterally. LYMPH NODES Palpation of the neck shows no palpable cervical adenopathy of either side of the neck. HEART Examination of the peripheral vascular system of the neck shows no JVD of the neck vessels. LUNGS Inspection of the chest shows symmetry in expansion of the chest with respiration. EXTREMITIES Musculoskeletal: Examination of the muscles of the neck shows no abnormality. NEURO The cranial nerves show no gross deficit. The patient is oriented to person, place and time. YUNIOR/kristen Signed Jordyn Knight II, M.D. ENT CC: Amanda Peoples M.D. [employer] [address] [place] [address] Electronically Signed By:JORDYN KNIGHT On 05/19/2010 11:26 am Modified by:JORDYN KNIGHT On 05/19/2010 11:26 am Source: [facility] MHSDOLBEYNONRADSYS Document Id: [id number] documented in this encounter Nursing Notes Conversion, Historical Provider Ser - 05/19/2010 10:57 AM CDT ENT Surgery Examine and clean ears, and removal (L) ear tube scheduled for 05/28/10 at [facility] with Dr. Knight. Insurance referral completed. No prior authorization is required per [facility] policy. Electronically Signed By:MIESHA ALLISON LPN On 05/19/2010 10:59 am Source: [facility] POWERPower-One Document Id: [id number] documented in this encounter Miscellaneous Notes Miscellaneous - Conversion, Historical Provider Ser - 05/14/2010 2:20 PM CDT Pediatric Dietitian Assistant Intake/History Pediatric Dietitian Assistant Intake/History Entered On: 05/14/2010 14:22 CDT Performed On: 05/14/2010 14:20 CDT by MIESHA ALLISON LPN Intake Chief Complaint: Chronic (L) ear infection- Hx of bilateral ear tubes Temperature Core: 37.0C(Converted to: 98.6DegF) Systolic Blood Pressure: 100mmHg Diastolic Blood Pressure: 60mmHg NIBP Mean: 73mmHg BP Location: Right upper extremity Actual Weight: 35.300kg(Converted to: 77lb 13oz) Dosing Weight Clinic: 35.30kg MIESHA ALLISON LPN - 05/14/2010 14:20 CDT Subjective Pain Symptoms: No MIESHA ALLISON LPN - 05/14/2010 14:20 CDT Dependent Habits Tobacco Use/Currently Using: No MIESHA ALLISON LPN - 05/14/2010 14:20 CDT Allergy Allergies (Active) NKA Estimated Onset Date: Unspecified ; Created By: CHANTELL UMANA; Reaction Status: Active ; Category: Drug ; Substance: NKA ; Type: Allergy ; Updated By: CHANTELL UMANA; Reviewed Date: 05/14/201014:19 CDT Source: [facility] [employer] Document Id: [id number] CDT!14 documented in this encounter Plan of Treatment Not on filedocumented as of this encounter Visit Diagnoses Not on filedocumented in this encounter
--- OUTSIDE RECORDS SUMMARY | 2022-04-05 14:32 | XMS_ITS | Encounter Summary ---
:2000 Author Organization [facility] Address [address] [place] [address] Care Team Providers Name Role Phone Unavailable Primary Care Provider Unavailable Encounter Details Date Type Department Care Team Description 06/18/2010 Hospital Encounter HX [facility] AUDIOLOGY Mojgan Felix am, Au.D. 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 Tobacco Use Types Packs/Day Years Used Date Smoking Tobacco: Never Assessed Sex Assigned at Date Recorded Not on file documented as of this encounter Progress Notes Stas Felix - 06/18/2010 12:00 AM CST [id number] IMPRESSION / REPORT / PLAN She is following with Dr. Andrade. CHIEF COMPLAINT / REASON FOR VISIT Seen for an audiologic evaluation following tube removal. PHYSICAL EXAM AREA EXAM TEXT ENT Tympanograms are normal in both ears. Puretone testing results are consistent with normal hearing bilaterally. MOA/sks Signed Amari Forrest. Audiology Electronically Signed By:STAS FELIX On 06/22/2010 01:08 PM Source: [facility] MHSDOLBEYNONRADSYS Document Id: [id number] ATOR documented in this encounter Plan of Treatment Not on filedocumented as of this encounter Visit Diagnoses Not on filedocumented in this encounter
--- OUTSIDE RECORDS SUMMARY | 2022-04-05 14:32 | XMS_ITS | Encounter Summary ---
:2000 Author Organization [facility] Address [address] [place] [address] Care Team Providers Name Role Phone Unavailable Primary Care Provider Unavailable Encounter Details Date Type Department Care Team Description 04/10/2010 Hospital Encounter HX [facility] Tom Peoples M.D. [address] [place], [place] [address] (Wo rk) 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 Tobacco [...] - Inhaled Oxygen Concentration - - Weight 34.8 kg (76 lb 11.5 oz) 04/10/2010 4:12 PM CDT Height 132.5 cm (4' 4.17) 03/03/2009 4:32 PM CDT Body Mass Index 16.58 03/03/2009 4:32 PM CDT Body Mass Index Percentile 60.51 % 03/03/2009 4:32 PM CD T Growth Chart: CDC (Girls, 2-20 Years) documented in this encounter Progress Notes Venus Peoples M.D. - 04/10/2010 12:00 AM CDT [id number] CHIEF COMPLAINT/REASON FOR VISIT Left ear pain. HISTORY OF PRESENT ILLNESS 9 1/2 -year-old female here today with her mother and sister. Amairani has been complaining of left ear pain over the last couple of days. She hasn't had a lot of cough or runny nose. There has been no fevers. She hasn't had an ear infection since last fall. At that time, she was having persistent infection which finally grew out resistant bacteria. Ciprofloxacin was used, as that was shown to have sensitivity. The ciprofloxacin finally got rid of her ear infection. Also, she's out of her allergy medication, which Mother requests today for her. Amairani has seasonal allergies. They're mild at the moment. CURRENT MEDICATIONS Post-visit Medication Reconciliation 1. Claritin 10 mg orally once daily. 2. Ciprofloxacin 250 mg tablet, 1 p.o. b.i.d. x10 days. ALLERGIES No known drug allergies. PAST MEDICAL/SURGICAL HISTORY 1. PE tube placement on the left 04/18/2008. 2. Tonsillectomy and umbilical hernia repair at age 6. 3. Bilateral PE tube placement at 3 years of age. 4. Myopia. 5. Pectus excavatum. VITAL SIGNS DATE/TIME 04/10/2010 WEIGHT 34.8 kg TEMPERATURE 37.0 degreesC RESP RATE 20 / min PULSE 80 SYSTOLIC 88 DIASTOLIC 54 PHYSICAL EXAM AREA EXAM TEXT GENERAL Generally comfortable, in no distress. EYES No injection or drainage. ENT Right TM with small white scarring seen. No erythema or fluid. Left tympanic membrane with PE tube in place. There's drainage out the tube. Nose is clear. Mouth: Tonsils surgically absent. Posterior pharynx pink without lesions. LYMPH NODES No significant cervical lymphadenopathy. HEART Regular rate and rhythm. S1 and S2 without murmurs. LUNGS Clear to auscultation bilaterally. No wheezes or crackles. IMPRESSION/REPORT/PLAN 1. Left acute otitis media. Prescription sent for a 10-day course of Ciprofloxacin. 2. Allergies. Also sent the prescription, along with refills, for her Claritin. KSL/glt Signed Venus Peoples M.D. Pinsetter Mechanic Helper Electronically Signed By:VENUS PEOPLES MD On 04/17/2010 02:47 pm Source: [facility] MHSDOLBEYNONRADSYS Document Id: [id number] documented in this encounter Miscellaneous Notes Miscellaneous - Larish, Lacy M - 04/10/2010 4:12 PM CDT Pediatric Paperhanger Pipe Intake/History Pediatric Paperhanger Pipe Intake/History Entered On: 04/10/2010 16:12 CDT Performed On: 04/10/2010 16:12 CDT by CHANTELL UMANA Intake Ambulatory Intake Additional Information: R little scrring. L tube draining VENUS PEOPLES MD - 04/10/2010 16:14 CDT Chief Complaint: c/o ear pain, also out of allergy medication Temperature Core: 37.0DegC(Converted to: 98.6DegF) Apical Heart Rate: 80bpm Respiratory Rate: 20br/min Systolic Blood Pressure: 88mmHg (<LLOW) Diastolic Blood Pressure: 54mmHg NIBP Mean: 65mmHg BP Reading Side: Right upper extremity Actual Weight: 34.800kg(Converted to: 76lb 12oz, 76.721lb, 1,227.534oz) Dosing Weight Clinic: 34.80kg CHANTELL UMANA - 04/10/2010 16:12 CDT Subjective Pain Symptoms: No CHANTELL UMANA - 04/10/2010 16:12 CDT Dependent Habits Tobacco Use/Currently Using: No CHANTELL UMANA - 04/10/2010 16:12 CDT Allergy Allergies (Active) NKA Estimated Onset Date: Unspecified ; Created By: CHANTELL UMANA; Reaction Status: Active ; Category: Drug ; Substance: NKA ; Type: Allergy ; Updated By: CHANTELL UMANA; Reviewed Date: 04/10/201016:11 CDT Source: [facility] POWERCHART Document Id: [id number] CDT!3 Miscellaneous - Chantell Sandoval - 03/03/2009 4:32 PM CDT Pediatric Growth Pediatric Growth Entered On: 04/10/2010 16:33 CDT Performed On: 03/03/2009 16:32 CDT by CHANTELL UMANA Pediatric Growth Height: 132.50cm(Converted to: 4ft 4in, 4.35ft, 52.17in) Actual Weight: 29.100kg(Converted to: 64lb 2oz, 64.155lb, 1,026.472oz) Body Mass Index: 17kg/m2 CHANTELL UMANA - 04/10/2010 16:32 CDT Source: [facility] Document Id: [id number] CDT!5 Miscellaneous - Chantell Sandoval - 03/25/2008 4:33 PM CDT Pediatric Growth Pediatric Growth Entered On: 04/10/2010 16:33 CDT Performed On: 03/25/2008 16:33 CDT by CHANTELL UMANA Pediatric Growth Height: 126.50cm(Converted to: 4ft 2in, 4.15ft, 49.80in) Actual Weight: 25.800kg(Converted to: 56lb 14oz, 56.879lb, 910.068oz) Body Mass Index: 16kg/m2 CHANTELL UMANA - 04/10/2010 16:33 CDT Source: [facility] Document Id: [id number] CDT!5 documented in this encounter Plan of Treatment Not on filedocumented as of this encounter Visit Diagnoses Not on filedocumented in this encounter
--- OUTSIDE RECORDS SUMMARY | 2022-04-05 14:32 | XMS_ITS | Encounter Summary ---
:2000 Author Organization [facility] Address [address] [place] [address] Care Team Providers Name Role Phone Unavailable Primary Care Provider Unavailable Encounter Details Date Type Department Care Team Description 06/18/2010 Hospital Encounter HX [facility] ENT Provider, [...] - Inhaled Oxygen Concentration - - Weight 36.3 kg (80 lb 0.4 oz) 06/18/2010 3:28 PM ELECTRICAL INSTALLATION SUPERVISOR Height - - Body Mass Index - - documented in this encounter Progress Notes Conversion, Historical Provider Ser - 06/18/2010 12:00 AM CST [id number] IMPRESSION/REPORT/PLAN 1. Resolving otitis media of the left ear. 2. Resolving conductive hearing loss of the left ear. 3. Healed left tympanic membrane. 4. Recurrent eustachian tube dysfunction. 5. Turbinate hypertrophy. DISCUSSION AND PLAN I discussed with the patient and with the patient's mother that her tympanic membranes are now healed. The left tympanic membrane has healed well and the patient no longer needs to use dry ear precautions. The patient does not need antibiotic therapy or any other form of therapy at this time. I've asked them to return to see me as needed if she has further problems with her ears or any other ear, nose and throat problems. AUDIOGRAM An audiogram shows that the patient might have a very mild conductive hearing loss in the very lowest frequencies for the left ear but essentially the patient's hearing is within normal limits for most frequencies on the audiogram for both ears. The tympanogram is within normal limits for both ears. CHIEF COMPLAINT/REASON FOR VISIT Mild, intermittent left ear pain. HISTORY OF PRESENT ILLNESS The patient is status post removal of a pressure equalizing tube from the left tympanic membrane. The patient has done well postoperatively. She is not having any ear drainage or any ear pain. All of her ear symptoms are improving. She was having some ear pain last week but this has resolved and this was only very mild pain that resolved very quickly. She denies having any vertigo or any other ear symptoms. SYSTEMS REVIEW The patient's had no change in her past medical history, family medical history, social history, or review of systems except for improvement in her review of systems. PAST MEDICAL/SURGICAL HISTORY The patient's had no change in her past medical history, family medical history, social history, or review of systems except for improvement in her review of systems. SOCIAL HISTORY The patient's had no change in her social history. FAMILY HISTORY The patient's had no change in her family medical history. VITAL SIGNS Reviewed and as per the EMR. PHYSICAL EXAM AREA EXAM TEXT GENERAL The patient has a normal general appearance with a normal body habitus. The patient seems to have a normal ability to communicate and has a normal quality of voice. ENT Ears: Examination of the external auditory canals is within normal limits bilaterally. Both tympanic membranes show tympanosclerosis. There is no evidence of a perforation for either ear. Inspection of the auricles shows each auricle [...] limits. The tongue is within normal limits. Renee's and Stensen's ducts are within normal limits bilaterally. Oropharynx: The oropharynx shows no erythema. The tonsils are of minimal size or have been removed. The uvula is in the midline and the soft palate is within normal limits. Neck: Examination of the neck shows no masses or asymmetry in tracheal position. Examination of the thyroid shows no enlargement and there is no tenderness in the thyroid. There is no evidence of cervical adenopathy bilaterally. RJL/kln Signed Jordyn Knight II, M.D. ENT CC: Amanda Peoples M.D. Director Of Tax Services [address] [place] [id number] Electronically Signed By:JORDYN KNIGHT II, MD On 06/23/2010 02:53 pm Modified by:JORDYN KNIGHT II, MD On 06/23/2010 02:53 pm Source: [facility] MHSDOLBEYNONRADSYS Document Id: [id number] documented in this encounter Miscellaneous Notes Miscellaneous - Conversion, Historical Provider Ser - 06/18/2010 3:28 PM ELECTRICAL INSTALLATION SUPERVISOR Pediatric Notching Machine Operator Intake/History Pediatric Notching Machine Operator Intake/History Entered On: 06/18/2010 15:29 ELECTRICAL INSTALLATION SUPERVISOR Performed On: 06/18/2010 15:28 ELECTRICAL INSTALLATION SUPERVISOR by MIESHA ALLISON LPN Intake Chief Complaint: Post-op Temperature Core: 36.4C(Converted to: 97.5DegF) (LOW) Systolic Blood Pressure: 110mmHg Diastolic Blood Pressure: 60mmHg NIBP Mean: 77mmHg BP Location: Right upper extremity Actual Weight: 36.300kg(Converted to: 80lb 0oz) Dosing Weight Clinic: 36.30kg MIESHA ALLISON LPN - 06/18/2010 15:28 ELECTRICAL INSTALLATION SUPERVISOR Subjective Pain Symptoms: No MIESHA ALLISON LPN - 06/18/2010 15:28 ELECTRICAL INSTALLATION SUPERVISOR Dependent Habits Tobacco Use/Currently Using: No MIESHA ALLISON LPN - 06/18/2010 15:28 ELECTRICAL INSTALLATION SUPERVISOR Allergy Allergies (Active) NKA Estimated Onset Date: Unspecified ; Created By: CHANTELL UMANA; Reaction Status: Active ; Category: Drug ; Substance: NKA ; Type: Allergy ; Updated By: CHANTELL UMANA; Reviewed Date: 06/18/201015:27 ELECTRICAL INSTALLATION SUPERVISOR Source: [facility] POWERCHART Document Id: [id number] ELECTRICAL INSTALLATION SUPERVISOR!14 documented in this encounter Plan of Treatment Not on filedocumented as of this encounter Visit Diagnoses Not on filedocumented in this encounter
--- OUTSIDE RECORDS SUMMARY | 2022-04-05 14:32 | XMS_ITS | Encounter Summary ---
:2000 Author Organization [facility] Address [address] [place] [address] Care Team Providers Name Role Phone Unavailable Primary Care Provider Unavailable Encounter Details Date Type Department Care Team Description 04/21/2010 Hospital Encounter HX [facility] Tom Peoples M.D. [address] [place], [place] [address] (Wo rk) 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 Tobacco [...] Weight 35.3 kg (77 lb 13.2 oz) 04/21/2010 3:33 PM CDT Height - - Body Mass Index - - documented in this encounter Progress Notes Venus Peoples M.D. - 04/21/2010 12:00 AM CDT [id number] CHIEF COMPLAINT/REASON FOR VISIT Persistent ear infection. HISTORY OF PRESENT ILLNESS 9 1/2 -year-old female, here with her mother and younger sister. Amairani was in the Clinic on 04/10, with a draining left ear. She's had trouble with persistent ear infections in the past. Because her last ear infection was treated successfully with ciprofloxacin, based on sensitivities, she was placed on that antibiotic again. It does not seem as though the ear infection ever completely resolved. While she was taking the antibiotics, the ear wasn't draining as much. However, she stopped the medication yesterday and her ear was draining lots today. She's complaining of ear pain today. No fevers. No significant cough or runny nose. There may be a component of allergies. I prescribed Claritin, but insurance does not cover [id number] medications and they have not been able to get that yet. CURRENT MEDICATIONS Post-visit Medication Reconciliation 1. Cefdinir 250 mg per 5 ml, 10 ml p.o. once daily x10 days. 2. Tqii-hoa-yftmogs Loratadine or Cetirizine p.o. p.r.n. allergies. ALLERGIES No known drug allergies. VITAL SIGNS DATE/TIME 04/21/2010 WEIGHT 35.3 kg TEMPERATURE 37.0 degreesC RESP RATE 22 / min PULSE 86 SYSTOLIC 102 DIASTOLIC 58 PHYSICAL EXAM AREA EXAM TEXT GENERAL Comfortable, in no distress. EYES No injection or drainage. ENT Right tympanic membrane is flat, pearly ross, with good light reflex. Left external ear canal with lots of whitish drainage. I do see the ear tube is in place with drainage. Nose is clear. Mouth: Mucous membranes moist. HEART Regular rate and rhythm. S1 and S2 without murmurs. LUNGS Clear to auscultation bilaterally. IMPRESSION/REPORT/PLAN Persistent left acute otitis media. I did take a culture of the ear drainage and will follow up on that. Prescription given to start a course of oral Cefdinir suspension. Amairani does not tolerate otic drops. KSL/glt Signed Venus Peoples M.D. Shirt Finisher Electronically Signed By:VENUS PEOPLES MD On 04/27/2010 11:37 am Source: [facility] MHSDOLBEYNONRADSYS Document Id: [id number] documented in this encounter Miscellaneous Notes Miscellaneous - Chantell Sandoval - 04/21/2010 3:33 PM CDT Pediatric Manager Biologics Intake/History Pediatric Manager Biologics Intake/History Entered On: 04/21/2010 15:36 CDT Performed On: 04/21/2010 15:33 CDT by CHANTELL UMANA Intake Chief Complaint: c/o left ear pain Temperature Core: 37.0C(Converted to: 98.6DegF) Apical Heart Rate: 86bpm Respiratory Rate: 22br/min Systolic Blood Pressure: 102mmHg Diastolic Blood Pressure: 58mmHg NIBP Mean: 73mmHg BP Location: Right upper extremity Actual Weight: 35.300kg(Converted to: 77lb 13oz) Dosing Weight Clinic: 35.30kg CHANTELL UMANA - 04/21/2010 15:33 CDT Subjective Pain Symptoms: No CHANTELL UMANA - 04/21/2010 15:33 CDT Dependent Habits Tobacco Use/Currently Using: No CHANTELL UMANA - 04/21/2010 15:33 CDT Allergy Allergies (Active) NKA Estimated Onset Date: Unspecified ; Created By: CHANTELL UMANA; Reaction Status: Active ; Category: Drug ; Substance: NKA ; Type: Allergy ; Updated By: CHANTELL UMANA; Reviewed Date: 04/21/201015:33 CDT [facility] Document Id: [id number] CDT!16 documented in this encounter Plan of Treatment Not on filedocumented as of this encounter Visit Diagnoses Not on filedocumented in this encounter
--- OUTSIDE RECORDS SUMMARY | 2022-04-05 14:32 | XMS_ITS | Encounter Summary ---
:2000 Author Organization [facility] Address [address] [place] [address] Care Team Providers Name Role Phone Unavailable Primary Care Provider Unavailable Encounter Details Date Type Department Care Team Description 05/21/2010 Hospital Encounter HX [facility] Tom Peoples M.D. [address] [place], [place] [address] (Wo rk) 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 Tobacco [...] - Inhaled Oxygen Concentration - - Weight 34.4 kg (75 lb 13.4 oz) 05/21/2010 3:51 PM CDT Height 140.3 cm (4' 7.24) 05/21/2010 3:51 PM CDT Body Mass Index 17.48 05/21/2010 3:51 PM CDT Body Mass Index Percentile 63.23 % 05/21/2010 3:51 PM CD T Growth Chart: CDC (Girls, 2-20 Years) documented in this encounter Progress Notes Venus Peoples M.D. - 05/21/2010 12:00 AM CDT [id number] CHIEF COMPLAINT/ REASON FOR VISIT Preanesthesia medical evaluation. HISTORY OF PRESENT ILLNESS 9-year-old female accompanied today by her mother and her sister, referred by Dr. Andrade for a preanesthesia medical evaluation. Amairani has a history of recurrent ear infections and currently has persistent left acute otitis media due to retained PE tube. This has been refractory to treatment and she is scheduled to have the PE tube removed, along with cleaning of her ears on 05/28. Otherwise, she has been well. She does not have any significant upper respiratory symptoms. No recent fevers. CURRENT MEDICATIONS None ALLERGIES No known drug allergies. No known allergies to latex, tape, dyes, or anything else. SYSTEMS REVIEW As mentioned in the history of present illness and past medical history. All other systems were reviewed were negative. PAST MEDICAL HISTORY 1. PE tube placement at age 3 2. Left PE tube placement 04/18/2008 3. Tonsilloadenoidectomy and umbilical hernia repair at age 6 4. Myopia 5. Seasonal allergies 6. Mild pectus excavatum SOCIAL HISTORY She lives with her mother and sister. She is in fourth grade. FAMILY HISTORY Maternal grandmother of cancer. Paternal grandfather with heart disease. No known family history of problems with anesthesia or bleeding disorder. VITAL SIGNS HEIGHT:140.3 cm WEIGHT: 34.4 kg TEMPERATURE: 36.8 HEART RATE: 84 RESPIRATORY RATE: 22 BLOOD PRESSURE: 96/60 PHYSICAL EXAM GENERAL: Comfortable, in no distress. SKIN: She has old picked over scabs on her arms and legs. No active rash. HEAD: Normocephalic. EYES: Conjunctivae noninjected with sclerae anicteric. Lids without ptosis, edema or erythema. Extraocular movements are intact and pupils equal, round, reactive to light. Red reflexes present bilaterally and symmetric light reflex. ENT: Left tympanic membrane is mostly obscured by drainage. PE tube is draining fluid. There is an erythematous area on the tympanic membrane. Right tympanic membrane is flat, pearly, with good light reflex. Nose is clear. Mouth: Mucous membranes moist. Tonsils surgically absent. Dentition normal for age. THYROID: No thyromegaly. BREASTS: Mild pectus excavatum noted. HEART: Regular rate and rhythm, S1-S2 without murmurs. LUNGS: Clear to auscultation bilaterally. ABDOMEN: Soft, without organomegaly or other masses. GAIT: Normal and appropriate gait for age. NEURO: Normal reflexes. No focal deficits appreciated. IMPRESSION/REPORT/PLAN 1. Amairani is ASA class I and okay to proceed with the surgery. She should call if she becomes ill prior to the surgery date. KSL/glt Signed Venus Peoples M.D. Nuclear Technician Electronically Signed By:VENUS PEOPLES MD On 05/26/2010 02:41 pm Source: [facility] MHSDOLBEYNONRADSYS Document Id: [id number] documented in this encounter Miscellaneous Notes Miscellaneous - Chantell Sandoval - 05/21/2010 3:51 PM CDT Pediatric Respite Care Provider Intake/History Pediatric Respite Care Provider Intake/History Entered On: 05/21/2010 15:52 CDT Performed On: 05/21/2010 15:51 CDT by CHANTELL UMANA Intake Chief Complaint: pre-op Temperature Core: 36.8C(Converted to: 98.2DegF) Apical Heart Rate: 84/min Respiratory Rate: 22/min Systolic Blood Pressure: 96mmHg Diastolic Blood Pressure: 60mmHg NIBP Mean: 72mmHg BP Location: Right upper extremity SpO2: 98% Height: 140.30cm(Converted to: 4ft 7in, 55.24in) Actual Weight: 34.400kg(Converted to: 75lb 13oz) Dosing Weight Clinic: 34.40kg Clinic BSA: 1.16 Body Mass Index: 17kg/m2 CHANTELL UMANA - 05/21/2010 15:51 CDT Subjective Pain Symptoms: No CHANTELL UMANA - 05/21/2010 15:51 CDT Dependent Habits Tobacco Use/Currently Using: No CHANTELL UMANA - 05/21/2010 15:51 CDT Allergy Allergies (Active) NKA Estimated Onset Date: Unspecified ; Created By: CHANTELL UMANA; Reaction Status: Active ; Category: Drug ; Substance: NKA ; Type: Allergy ; Updated By: CHANTELL UMANA; Reviewed Date: 05/14/201014:19 CDT Source: [facility] [employer] Document Id: [id number] CDT!20 documented in this encounter Plan of Treatment Not on filedocumented as of this encounter Visit Diagnoses Not on filedocumented in this encounter
--- OUTSIDE RECORDS SUMMARY | 2022-04-05 14:32 | XMS_ITS | Encounter Summary ---
:2000 Author Organization [facility] Address [address] [place] [address] Care Team Providers Name Role Phone Unavailable Primary Care Provider Unavailable Encounter Details Date Type Department Care Team Description 07/14/2010 Hospital Encounter HX [facility] Tom Peoples M.D. [address] [place], [place] [address] (Wo rk) 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 Tobacco [...] - Inhaled Oxygen Concentration - - Weight 35.8 kg (78 lb 14.8 oz) 07/14/2010 8:35 AM HEAVY DUTY DIESEL MECHANIC Height - - Body Mass Index - - documented in this encounter Progress Notes Venus Peoples M.D. - 07/14/2010 12:00 AM CST [id number] CHIEF COMPLAINT/ REASON FOR VISIT Ear pain HISTORY OF PRESENT ILLNESS Amairani is [age] years old and here with her father. She has been complaining of ear pain over the past day. She did have some cough and cold symptoms for about a week. No fevers have been noted. No other complaints. CURRENT MEDICATIONS 1. Cefdinir 250 milligrams per 5 ml, 10 ml p.o. daily x10 days ALLERGIES No known drug allergies. PAST MEDICAL/SURGICAL HISTORY Amairani has had lots of troubles with her ears. She has had three sets of ear tubes. She had trouble with chronic otorrhea and had her left PE tube removed under anesthesia on 05/28/2010. She also had an umbilical hernia repair. She has myopia, allergic rhinitis and a mild pectus excavatum. VITAL SIGNS WEIGHT: 35.8 kg TEMPERATURE: 37.1 HEART RATE: 80 RESPIRATORY RATE: 22 BLOOD PRESSURE: 102/60 PHYSICAL EXAM GENERAL: Comfortable, quiet, in no distress. EYES: No injection or drainage. ENT: Ears: Right tympanic membrane is flat and shiny. Left tympanic membrane with cloudy fluid and mild erythema. There are two large blister-like lesions on the eardrum. Nose with mild congestion. Mouth: Mucous membranes moist. Posterior pharynx pink. Tonsils surgically absent. HEART: Regular rate and rhythm, S1-S2 without murmurs. LUNGS: Clear to auscultation bilaterally. IMPRESSION/REPORT/PLAN Left acute otitis media. She is placed on a 10-day course of oral Cefdinir. Discussed that drainage may be noted if she perforates that eardrum. If she begins to have either recurrent ear infections again or we are unable to get rid of this particular ear infection, I would send her back to Dr. Andrade. KSL/glt Signed Venus Peoples M.D. Business Objects Electronically Signed By:VENUS PEOPLES MD On 07/16/2010 03:34 pm Source: [facility] MHSDOLBEYNONRADSYS Document Id: [id number] Y DUTY DIESEL MECHANIC documented in this encounter Miscellaneous Notes Miscellaneous - Venus Peoples M.D. - 07/14/2010 8:45 AM CST Ambulatory Patient Summary [address] [address] Visit Information Name: AMAIRANI MARTINEZ Current Date: 07/14/2010 08:45:00 Primary Care Provider: VENUS PEOPLES MD [id number] Your Medications Here is a list of your medications. It is important to take your medications as directed. Use a pillbox or chart to help remind you to take your medications. Please let your doctor or nurse know if you have problems taking your medications. Medication/Strength Dose Route Frequency Indications/Special Instructions/Comments cefdinir (cefdinir 250 mg/5 mL oral suspension) 500 mg Oral once a day Target Dose: cefdinir 250 mg/5 mL oral suspension 14 mg/kg 07/14/2010 08:43:16 loratadine (Loratadine Reditab 10 mg oral tablet, [...] No Appointments found Your Goals/Additional instructions: Source: [facility] POWERCHART Document Id: [id number] Miscellaneous - Venus Peoples M.D. - 07/14/2010 8:45 AM CST Ambulatory Depart Summary [address] [address] Visit Information Name: DONYA AMAIRANICHESTER NICOLELENNIE Current Date: 07/14/2010 08:45:00 Primary Care Provider: VENUS PEOPLES MD [id number] AMAIRANI MARTINEZ has been given the following list of medications: Your Medications It is important to take your medications as directed. Use a pill box or chart to help remind you to take your medications. Please let your doctor or nurse know if you have problems taking your medications. Medication/Strength Dose Route Frequency Indications/Special Instructions/Comments cefdinir (cefdinir 250 mg/5 mL oral suspension) 500 mg Oral once a day Target Dose: cefdinir 250 mg/5 mL oral suspension 14 mg/kg 07/14/2010 08:43:16 loratadine (Loratadine Reditab 10 mg oral tablet, disintegrating) 10 mg Oral once a day Additional Information: Yes - Current list of reconciled medications is provided and explained to the patient and/or family, guardian/caregiver. Source: [facility] POWERCHART Document Id: [id number] Electronically signed by Anastasia [facility] Gas Maker [id number] at 01/10/2017 4:58 AM CDT Miscellaneous - Chantell Sandoval - 07/14/2010 8:35 AM CST Pediatric Railroad Hand Intake/History Pediatric Railroad Hand Intake/History Entered On: 07/14/2010 8:37 HEAVY DUTY DIESEL MECHANIC Performed On: 07/14/2010 8:35 HEAVY DUTY DIESEL MECHANIC by CHANTELL UMANA Intake Ambulatory Intake Additional Information: 2 large bullous lesions. no fevers VENUS PEOPLES MD - 07/14/2010 8:44 HEAVY DUTY DIESEL MECHANIC Chief Complaint: c/o left ear hurting, x 1 day; cold x 1 week Temperature Core: 37.1C(Converted to: 98.8DegF) Apical Heart Rate: 80/min Respiratory Rate: 22/min Systolic Blood Pressure: 102mmHg Diastolic Blood Pressure: 60mmHg NIBP Mean: 74mmHg BP Location: Right upper extremity Actual Weight: 35.800kg(Converted to: 78lb 15oz) Dosing Weight Clinic: 35.80kg CHANTELL UMANA - 07/14/2010 8:35 HEAVY DUTY DIESEL MECHANIC Subjective Pain Symptoms: No CHANTELL UMANA - 07/14/2010 8:35 HEAVY DUTY DIESEL MECHANIC Dependent Habits Tobacco Use/Currently Using: No CHANTELL UMANA - 07/14/2010 8:35 HEAVY DUTY DIESEL MECHANIC Allergy Allergies (Active) NKA Estimated Onset Date: Unspecified ; Created By: CHANTELL UMANA; Reaction Status: Active ; Category: Drug ; Substance: NKA ; Type: Allergy ; Updated By: CHANTELL UMANA; Reviewed Date: 07/14/20108:34 HEAVY DUTY DIESEL MECHANIC Source: [facility] POWERCHART Document Id: [id number] HEAVY DUTY DIESEL MECHANIC!3 Y DUTY DIESEL MECHANIC documented in this encounter Plan of Treatment Not on filedocumented as of this encounter Visit Diagnoses Not on filedocumented in this encounter
--- OUTSIDE RECORDS SUMMARY | 2022-04-05 14:32 | XMS_ITS | Encounter Summary ---
:2000 Author Organization [facility] Address [address] [place] [address] Care Team Providers Name Role Phone Unavailable Primary Care Provider Unavailable Encounter Details Date Type Department Care Team Description 06/05/2010 Hospital Encounter HX [facility] ENT Provider, [...] - Inhaled Oxygen Concentration - - Weight 35.1 kg (77 lb 6.1 oz) 06/05/2010 10:42 AM CDT Height - - Body Mass Index - - documented in this encounter Progress Notes Conversion, Historical Provider Ser - 06/05/2010 12:00 AM CDT [id number] IMPRESSION/REPORT/PLAN 1. Resolving perforation of the tympanic membrane. 2. Resolving suppurative otitis media. PLAN I have encouraged them to continue using dry ear precautions. I have asked her to return to see me in 13 days. The child no longer needs to use topical antibiotic ear drops. CHIEF COMPLAINT/REASON FOR VISIT Ear HISTORY OF PRESENT ILLNESS The patient has had a retained pressure equalizing tube of the left tympanic membrane. In the operating room, this ear was cultured and it was found to grow staphylococcus aureus. The staphylococcus aureus was sensitive to most antibiotics, although it was resistant to ampicillin and ampicillin with sulbactam. It also only had intermediate sensitivities to certain cephalosporins. Post-operatively the patient was treated with topical drops and has had a very quick resolution of ear symptoms. The child does not complain of having any otalgia. She is also having no symptoms consistent with vertigo. SYSTEMS REVIEW Unchanged. PAST MEDICAL/SURGICAL HISTORY Unchanged. SOCIAL HISTORY Unchanged. FAMILY HISTORY Unchanged. PHYSICAL EXAM AREA EXAM TEXT ENT On exam, the tympanic membrane is healing well on the left ear. There is only a very tiny perforation now, it is less than 2% of the tympanic membrane. The right ear is clean and the tympanic membrane is clear. Nose: No nasal discharge is seen. OC/OP: The oral cavity and oropharynx examinations are each essentially unremarkable. Neck: The neck exam is negative, and there is no cervical adenopathy. RJLatanya/amadous Signed Jordyn Knight II, M.D. ENT Electronically Signed By:JORDYN KNIGHT II, MD On 06/13/2010 09:48 pm Modified by:JORDYN KNIGHT II, MD On 06/13/2010 09:48 pm Source: [facility] MHSDOLBEYNONRADSYS Document Id: [id number] documented in this encounter Miscellaneous Notes Miscellaneous - Conversion, Historical Provider Ser - 06/05/2010 10:42 AM CDT Pediatric Recruiting Specialist Intake/History Pediatric Recruiting Specialist Intake/History Entered On: 06/05/2010 10:43 CDT Performed On: 06/05/2010 10:42 CDT by MIESHA ALLISON LPN Intake Chief Complaint: Post-op Temperature Core: 37.1C(Converted to: 98.8DegF) Systolic Blood Pressure: 90mmHg (<LLOW) Diastolic Blood Pressure: 60mmHg NIBP Mean: 70mmHg BP Location: Right upper extremity Actual Weight: 35.100kg(Converted to: 77lb 6oz) Dosing Weight Clinic: 35.10kg MIESHA ALLISON LPN - 06/05/2010 10:42 CDT Subjective Pain Symptoms: No MIESHA ALLISON LPN - 06/05/2010 10:42 CDT Dependent Habits Tobacco Use/Currently Using: No MIESHA ALLISON LPN - 06/05/2010 10:42 CDT Allergy Allergies (Active) NKA Estimated Onset Date: Unspecified ; Created By: CHANTELL UMANA; Reaction Status: Active ; Category: Drug ; Substance: NKA ; Type: Allergy ; Updated By: CHANTELL UMANA; Reviewed Date: 06/05/201010:42 CDT Source: [facility] [employer] Document Id: [id number] CDT!14 documented in this encounter Plan of Treatment Not on filedocumented as of this encounter Visit Diagnoses Not on filedocumented in this encounter
--- OUTSIDE RECORDS SUMMARY | 2022-04-05 14:32 | XMS_ITS | Encounter Summary ---
:2000 Author Organization [facility] Address [address] [place] [address] Care Team Providers Name Role Phone Unavailable Primary Care Provider Unavailable Encounter Details Date Type Department Care Team Description 05/04/[address] [facility] Tom Peoples M.D. [address] [place], [place] [address] (Wo rk) 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 Tobacco [...] Weight 34.4 kg (75 lb 13.4 oz) 05/04/2010 10:42 AM CDT Height - - Body Mass Index - - documented in this encounter Progress Notes Venus Peoples M.D. - 05/04/2010 12:00 AM CDT [id number] CHIEF COMPLAINT/REASON FOR VISIT Continued ear drainage. HISTORY OF PRESENT ILLNESS Amairani is 9 years old and here with her father. She has had persistent left ear infection for the past several weeks. She was initially placed on Ciprofloxacin because that antibiotic worked on her previous ear infection. She had continued drainage and returned to the clinic on 04/21. Culture was taken and she was placed on Cefdinir. Her culture is yielding staph aureus which is resistant to ampicillin and penicillin, but sensitive to cephalosporins as well as amoxicillin clavulanate, Bactrim and others. Her drainage has never really gone away, it is bothersome. However, she has not had any fevers. CURRENT MEDICATIONS 1. Bactrim Suspension 10 ml. PO b.i.d. times ten days. 2. Loratidine 10 mg. PO once daily p.r.n. ALLERGIES No known drug allergies. VITAL SIGNS WEIGHT 34.4 kg TEMPERATURE 37.0 HEART RATE 90 RESP RATE 22 BLOOD PRESSURE 90/62 PHYSICAL EXAM GENERAL: Comfortable, no distress. EYES: No injection or drainage. ENT: Ears: Right tympanic membrane flat, pearly ross without fluid or erythema. Left external canal with lots of whitish drainage. PE tube appears to be in place with drainage. There is an erythematous papular lesion inferior and posterior to the tube obscured by drainage. Nose is clear. Mouth: Mucous membranes moist with tonsils surgically absent. Posterior pharynx is pink. LYMPH NODES: No significant cervical lymphadenopathy. HEART: Regular rate and rhythm, S1 and S2 without murmurs. LUNGS: Clear to auscultation bilaterally. IMPRESSION/REPORT/PLAN Persistent left acute otitis media. Amairani was placed on a course of Bactrim Suspension today. I am also recommending she follow up with ENT. That appointment has been made for 05/14/2010. KSL/sks Signed Venus Peoples M.D. Repair Clerk Electronically Signed By:VENUS PEOPLES MD On 05/07/2010 04:01 pm Source: [facility] MHSDOLBEYNONRADSYS Document Id: [id number] documented in this encounter Miscellaneous Notes Miscellaneous - Chantell Sandoval - 05/04/2010 10:42 AM CDT Pediatric Bean Roaster Intake/History Pediatric Bean Roaster Intake/History Entered On: 05/04/2010 10:44 CDT Performed On: 05/04/2010 10:42 CDT by CHANTELL UMANA Intake Chief Complaint: c/o ear infections Temperature Core: 37.0C(Converted to: 98.6DegF) Apical Heart Rate: 90/min Respiratory Rate: 22/min Systolic Blood Pressure: 90mmHg (<LLOW) Diastolic Blood Pressure: 62mmHg NIBP Mean: 71mmHg BP Location: Right upper extremity Actual Weight: 34.400kg(Converted to: 75lb 13oz) Dosing Weight Clinic: 34.40kg CHANTELL UMANA - 05/04/2010 10:42 CDT Subjective Pain Symptoms: No CHANTELL UMANA - 05/04/2010 10:42 CDT Dependent Habits Tobacco Use/Currently Using: No CHANTELL UMANA - 05/04/2010 10:42 CDT Allergy Allergies (Active) NKA Estimated Onset Date: Unspecified ; Created By: CHANTELL UMANA; Reaction Status: Active ; Category: Drug ; Substance: NKA ; Type: Allergy ; Updated By: CHANTELL UMANA; Reviewed Date: 04/21/201015:33 CDT Source: [employer] Document Id: [id number] CDT!16 documented in this encounter Plan of Treatment Not on filedocumented as of this encounter Visit Diagnoses Not on filedocumented in this encounter
--- OUTSIDE RECORDS SUMMARY | 2022-04-05 14:32 | XMS_ITS | Encounter Summary ---
:2000 Author Organization [facility] Address [address] [place] [address] Care Team Providers Name Role Phone Unavailable Primary Care Provider Unavailable Encounter Details Date Type Department Care Team Description 05/14/2010 Hospital Encounter HX [facility] AUDIOLOGY Mojgan Felix am, Au.D. 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 Tobacco Use Types Packs/Day Years Used Date Smoking Tobacco: Never Assessed Sex Assigned at Date Recorded Not on file documented as of this encounter Progress Notes Stas Felix - 05/14/2010 12:00 AM CDT [id number] IMPRESSION / REPORT / PLAN She is following with Dr. Andrade. CHIEF COMPLAINT / REASON FOR VISIT Seen for an audiologic evaluation. HISTORY OF PRESENT ILLNESS She has a history of chronic otitis media and tubes. Mom reported otorrhea in the left ear, but not right now. PHYSICAL EXAM AREA EXAM TEXT ENT The right tympanogram is Type A, the left tympanogram is Type B with normal volume. Puretone testing results are consistent with normal hearing bilaterally. Word understanding in quiet is excellent in both ears. MOA/sks Signed Amari Forrest. Audiology Electronically Signed By:STAS FELIX On 05/18/2010 05:05 PM Source: [facility] MHSDOLBEYNONRADSYS Document Id: [id number] documented in this encounter Plan of Treatment Not on filedocumented as of this encounter Visit Diagnoses Not on filedocumented in this encounter
--- OUTSIDE RECORDS SUMMARY | 2022-04-05 14:32 | XMS_ITS | Encounter Summary ---
:2000 Author Organization [facility] Address [address] [place] [address] Care Team Providers Name Role Phone Unavailable Primary Care Provider Unavailable Encounter Details Date Type Department Care Team Description 05/22/2010 Hospital Encounter HX [facility] E[facility] Provider, [...] Weight 35.2 kg (77 lb 9.6 oz) 05/22/2010 11:24 AM CDT Height - - Body Mass Index 17.88 05/21/2010 3:51 PM CDT Body Mass Index Percentile 68.62 % 05/22/2010 11:24 AM C DT Growth Chart: [facility] (Girls, 2-20 Years) documented in this encounter Progress Notes Conversion, Historical Provider Ser - 05/22/2010 12:00 AM CDT [id number] IMPRESSION/REPORT/PLAN 1. Chronic otitis media. 2. Chronic eustachian tube dysfunction. 3. Conductive hearing loss. 4. History of allergic rhinitis and other medical problems as well. DISCUSSION AND PLAN I recommended the patient go to the operating room for an examination of cleaning of her ears under anesthesia and removal of the old pressure equalizing tube. The patient's mother came in with her daughter and after I answered all of her questions, she signed a 2-page consent that has now been scanned into the electronic medical record. This consent discusses the risks and alternatives to the surgery. We have had an extensive discussion of the risks and alternatives. The mother has had an opportunity to answer all the questions that she has and she wants to go ahead with the planned procedure within the next week. CHIEF COMPLAINT/REASON FOR VISIT Ears. HISTORY OF PRESENT ILLNESS The patient has an old pressure equalizing tube that has been in the tympanic membrane for an extended period of time. This has lead to a suppurative otitis media. She has had recurrent and even chronic suppurative otitis media and this is probably secondary to this old pressure equalizing tube. 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 SYSTEMS REVIEW The patient has had no change in her past medical history, family medical history, social history or review of systems. PAST MEDICAL/SURGICAL HISTORY/FMHX/SOHX The patient has had no change in her past medical history, family medical history, social history or review of systems. SOCIAL HISTORY The patient has had no change in her past medical history, family medical history, social history or review of systems. FAMILY HISTORY The patient has had no change in her past medical history, family medical history, social history or review of systems. VITAL SIGNS Please see the electronic medical record. PHYSICAL EXAM AREA EXAM TEXT GENERAL The [...] The patient's facial strength is normal bilaterally. ENT Ears: The patient has an old pressure equalizing tube in contact with the tympanic membrane. There is no purulence in the ears or in the external auditory canal at this time. She also has tympanosclerosis of both tympanic membranes. Inspection of the auricles shows each auricle [...] limits. The tongue is within normal limits. [place]'s and Stensen's ducts are within normal limits bilaterally. Oropharynx: There is no erythema of the oropharynx. The uvula is in the midline and [...] YUNIOR/kristen Signed Jordyn Knight II, M.D. ENT Electronically Signed By:JORDYN KNIGHT On 05/26/2010 02:00 am Modified by:JORDYN KNIGHT On 05/26/2010 02:00 am Source: [facility] MHSDOLBEYNONRADSYS Document Id: [id number] documented in this encounter Miscellaneous Notes Miscellaneous - Conversion, Historical Provider Ser - 05/22/2010 11:24 AM CDT Adult Flash Designer Intake/History Adult Flash Designer Intake/History Entered On: 05/22/2010 11:33 CDT Performed On: 05/22/2010 11:24 CDT by MIESHA ALLISON LPN Intake Chief Complaint: Sign surgical consent Temperature Core: 36.8C(Converted to: 98.2DegF) Systolic Blood Pressure: 100mmHg Diastolic Blood Pressure: 60mmHg NIBP Mean: 73mmHg BP Location: Right upper extremity Actual Weight: 35.200kg(Converted to: 77lb 10oz) Dosing Weight Clinic: 35.20kg MIESHA ALLISON LPN - 05/22/2010 11:24 CDT Subjective Pain Symptoms: No MIESHA ALLISON LPN - 05/22/2010 11:24 CDT Dependent Habits Tobacco Use/Currently Using: Terese MIESHA ALLISON [facility] - 05/22/2010 11:24 CDT Allergies Allergies (Active) NKA Estimated Onset Date: Unspecified ; Created By: CHANTELL UMANA; Reaction Status: Active ; Category: Drug ; Substance: NKA ; Type: Allergy ; Updated By: CHANTELL UMANA; Reviewed Date: 05/22/201011:21 CDT Source: [facility] Document Id: [id number] CDT!14 documented in this encounter Plan of Treatment Not on filedocumented as of this encounter Visit Diagnoses Not on filedocumented in this encounter
[2022-04-05 14:40] LABS: Appearance Urine Clear (Clear); Bilirubin Urine Negative (Negative); Blood Urine 1+ (Negative); Color Urine Yellow (Yellow); Glucose Urine Negative (Negative); Ketones Urine Negative (Negative); Leukocyte Esterase Urine Negative (Negative); Nitrite Urine Negative (Negative); Protein Urine Negative (Negative); Urobilinogen Urine 0.2 (0.2-1.0)
[2022-04-05 14:56] LABS: Bacteria Urine Moderate; Squamous Epithelial Cell Urine Moderate (None-Few)
[2022-04-05 15:13] LABS: Albumin* 4.7 g/dL (3.3-5.0); Chloride* 101 mmol/L (96-114); Sodium* 138 mmol/L (135-149)
[2022-04-05 15:14] LABS: Basophils Absolute Auto 0.04 K/uL (0.00-0.30); Basophils Percent Auto 0.6 % (0.0-3.0); Eosinophils Absolute Auto 0.04 K/uL (0.00-0.50); Eosinophils Percent Auto 0.6 % (0.0-7.0); Hematocrit 39.9 % (33.0-51.0); Hemoglobin* 13.3 gm/dL (12.0-16.0); Immature Granulocytes Abs Auto 0.01 K/uL (0.00-0.30); Lymphocytes Absolute Auto 1.84 K/uL (0.90-2.90); Lymphocytes Percent Auto 26.2 % (20-44); Mean Corpuscular HGB Conc 33 gm/dL (32-36); Mean Corpuscular Hemoglobin 29 pg (26-34); Mean Corpuscular Volume 88 fL (80-100); Monocytes Percent Auto 14.5 % (0.0-11.0); Neutrophils Absolute Auto 4.08 K/uL (1.7-7.0); Platelet Count* 340 K/uL (140-440); RDW Coefficient of Variation % 12.5 % (11.5-15.5); Red Blood Count 4.56 m/uL (4.00-5.20); White Blood Count* 7.03 K/uL (4.50-11.00)
[2022-04-05 15:16] LABS: Alanine Aminotransferase* 13 U/L (4-35); Alkaline Phosphatase* 128 U/L (40-150); Aspartate Amino Transferase* 21 U/L (12-35); Bilirubin Total* 0.5 mg/dL (0.1-1.5); Blood Urea Nitrogen* 7 mg/dL (5-24); Carbon Dioxide* 24 mmol/L (20-32); Creatinine* 0.6 mg/dL (0.5-1.5); Est. Creatinine Clearance* 128.08; Estimated Glomerular Filt Rate 131 ml/min; Glucose* 93 mg/dL (60-115); Total Protein* 8.2 g/dL (6.0-8.3)
[2022-04-05 15:17] LABS: Calcium* 9.8 mg/dL (8.4-10.6)
[2022-04-05 15:28] LABS: Slide Review Reflex No
[2022-04-05 15:32] LABS: HCG Quantitative* 11.48 mIU/mL
== END 2022-04-05 16:43 | disposition home or self-care (01) ==
PROVIDERS: Emergency Provider Student in an Organized Health Care Education/Training Program; PCP Family Medicine
DX: O23.41 Unspecified infection of urinary tract in pregnancy, first trimester (principal); R10.9 Unspecified abdominal pain
CPT/HCPCS: 36415; 76817; 80053; 81003; 81015; 84702; 85025; 87086; 99283; 99284

== ENCOUNTER 2022-04-08 12:40 | Outpatient (CLI) | payer OTHER, MEDICAID, SELFPAY ==
--- OUTSIDE RECORDS SUMMARY | 2022-04-08 09:53 | XMS_ITS | Encounter Summary ---
:2000 Author Organization [facility] Address [address] [place] [address] Care Team Providers Name Role Phone Unavailable Primary Care Provider Unavailable Encounter Details Date Type Department Care Team Description 09/15/2016 Hospital Encounter HX NO MAPPING Mireya Baugh M.D. [address] [place], [place] [phone] (Wo rk) 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 Tobacco Use Types Packs/Day Years Used Date Smoking Tobacco: Never Sex Assigned at Date Recorded Not on file documented as of this encounter Miscellaneous Notes Miscellaneous - Anastasia, Claudia Provider Ser - 09/15/2016 11:59 PM ADJUNCT SOCIOLOGY PROFESSOR Coding Summary-Paper Based CODING DATE: 09/27/2016 FINAL [facility] STATUS: * Discharged to Home or Self Care [facility]: REASON FOR VISIT DX: [...] MARINO Date Saved: 09/27/2016 10:22 am Source: [employer] Document Id: [id number] documented in this encounter Plan of Treatment Not on filedocumented as of this encounter Visit Diagnoses Not on filedocumented in this encounter Additional Health Concerns Assessment Noted Time PHQ-9 Depression Total Score: 1 04/22/2014 12:46 PM CD T documented as of this encounter
--- OUTSIDE RECORDS SUMMARY | 2022-04-08 09:53 | XMS_ITS | Encounter Summary ---
:2000 Author Organization [facility] Address [address] [place] [address] Care Team Providers Name Role Phone Elsewhere, Pcp Primary Care Provider Unavailable Encounter Details Date Type Department Care Team Description 06/15/2020 Admin Visit Department of Family Medicine, [address] [address] [facility] [phone] 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 Tobacco Use Types Packs/Day Years Used Date Smoking Tobacco: Never Sex Assigned at Date Recorded Not on file documented as of this encounter Plan of Treatment Not on filedocumented as of this encounter Visit Diagnoses Not on filedocumented in this encounter Additional Health Concerns Infection Onset Date Last Indicated Resolved Time COVID19 Pending 06/15/2020 06/15/2020 06/16/2020 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
--- OUTSIDE RECORDS SUMMARY | 2022-04-08 09:53 | XMS_ITS | Clinical Summary ---
:2000 Author Organization [facility] Address [address] [place] [address] Care Team Providers Name Role Phone Elsewhere, Pcp Primary Care Provider Unavailable Source Comments Patient records contain information from all sites at [facility]. For routine questions regarding patient records, call [phone] during business hours, M-F 8:00 AM - 5:00 PM Central Time. Record requests for emergency care only can be directed to [phone] at any time.[facility] Immunizations Name Administration Dates Next Due [...] Address T ype Group Dates PREFERREDONE PREFERREDONE [id number] 2019-Pre [phone] PPO ADMINISTRATIVE ADMINISTRATIVE sent [phone] SERVICES SERVICES [place] [phone] Care Teams Legal File Clerk Relationship Specialty Start Date End Date Elsewhere, Pcp PCP - General 03/07/20
--- OUTSIDE RECORDS SUMMARY | 2022-04-08 09:53 | XMS_ITS | Clinical Summary ---
:2000 Author Organization [facility] [place] [address] Care Team Providers Name Role Phone Tamara Wei MD Primary Care Provider [phone] Allergies No known active allergies Medications [...] Comments Blood Pressure 118/60 07/17/2021 9:18 AM DIRECTOR COMMERCIAL SALES Pulse 109 07/17/2021 9:18 AM DIRECTOR COMMERCIAL SALES Temperature 36.4 ??C (97.5 ??F) 02/03/2021 3:05 PM CDT Respiratory Rate 14 02/03/2021 3:05 PM CDT Oxygen Saturation 99% 02/03/2021 3:05 PM CDT Inhaled Oxygen Concentration - - Weight 74.7 kg (164 lb 11.2 oz) 07/17/2021 9:18 AM DIRECTOR COMMERCIAL SALES Height 166 cm (5' 5.35) 07/17/2021 9:18 AM DIRECTOR COMMERCIAL SALES Body Mass Index 27.11 07/17/2021 9:18 AM DIRECTOR COMMERCIAL SALES Plan of Treatment Health Maintenance Due Date [...] ss Type Group PREFERRED ONE PREFERRED ONE [id number] 2017-Present [address] [place] [address] [place]ICA[place]ICA[place] [id number] 2021-Presen [address] [address] [place] [address] Care Teams Phys Asst Relationship Specialty Start Date End Date Tamara Wei MD PCP - General Family Practice 04/12/171999 [place] [address]
--- OUTSIDE RECORDS SUMMARY | 2022-04-08 09:53 | XMS_ITS | Encounter Summary ---
:2000 Author Organization [facility] Address [address] [place] [address] Care Team Providers Name Role Phone Mary Farr M.D. Primary Care Provider Encounter Details Date Type Department Care Team Description 01/27/2017 Hospital Encounter HX [facility] Kecia Garcia APRN, C.N.P. [address] [place], [place] [phone] (Wo rk) 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 [...] go to college. 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 MEDICATIONS No active medications [...] Child & Teen Checkup Charge Developmental Testing ([place]) Charge - 63408 OV Est Pt Prev Svc [id number] Encounter [...] # 84 tab(s), 3 Refill(s), Maintenance, Pharmacy: [id number] Electronically Signed By: KECIA GARCIA APRN, CNP On: 01/27/2017 04:39 PM Source: [facility] POWERCHART Document Id: [id number] documented in this encounter Procedure Notes Ara Lange L.P.N. - 01/27/2017 4:16 PM CDT Vision Testing Vision Testing Entered On: 01/27/2017 16:16 CDT Performed On: 01/27/2017 16:16 CDT by ARA LANGE LPN Vision Testing Eye, Right with Correction : 20/25 Eye, Left w/Correction : 20/20 ARA LANGE LPN - 01/27/2017 16:16 CDT Source: [employer] Document Id: [id number] CDT!4 Ara Lange L.P.N. - 01/27/2017 4:14 [...] LANGE LPN - 01/27/2017 16:14 CDT Source: [employer] Document Id: [id number] CDT!16 documented in this encounter Nursing Notes [...] whole grains every day. Less healthy foods-like micronesian fries, candy, and chips-should be eaten rarely. [...] this visit. Based on recommendations from the [employer] of Pediatric[employer], at this visit your [...] away. Next checkup at: PARENT NOTES: ?? [phone] Alyssa Hammond, [address] [place] [address], [place] [address]. All rights reserved. This information is not intended as a substitute for professional medical care. Always follow your healthcare professional's instructions. This document has images extracted. Please consider using [employer] for all your patient education needs. Source: [facility] [employer] Document Id: [id number] documented in this encounter Miscellaneous Notes Miscellaneous - Debbie Orta, MICHAEL([facility]) - 01/27/2017 5:13 PM CDT *General [...] Please send new order to queue. Source: [facility] Document Id: [id number] Miscellaneous - Ara Lange L.P.N. - 01/27/2017 [...] LANGE LPN - 01/27/2017 16:44 CDT Source: [employer] Document Id: [id number] CDT!16 Miscellaneous - Kecia Garcia APRN, C.N.P. - 01/27/2017 4:28 PM CDT Ambulatory Patient Summary [facility] [address] [place] [id number] Visit Information Name: AMAIRANI NAQVI [facility] Number: [id number] Current Date: 01/27/2017 16:28:23 Physicians Attending Provider: KECIA GARCIA APRN BURR MILL OPERATOR Primary Care Provider: KECIA GARCIA APRN BURR MILL OPERATOR AMAIRANI NAQVI has been given the [...] Oral, once a day New Routed to [address] [address] Stop Taking the Following Medications: Medication list [...] whole grains every day. Less healthy foods--like micronesian fries, candy, and chips--should be eaten rarely. [...] this visit. Based on recommendations from the [employer] Pediatrics, at this visit your [...] away. Next checkup at: PARENT NOTES: ?? [phone] [facility], [address] [place] [address]. All rights reserved. This information is not [...] if you dont have one. Go to [email or web address] and click on Create Your Account. Then, follow the directions to complete the online form. Youll be asked for your [facility] number which you can find at the top of this document. Your Goals/Additional instructions: This document has images extracted. Please consider using [employer] for all your patient education needs. Source: [facility] POWERCHART Document Id: [id number] Miscellaneous - Kecia Garcia APRN, C.N.P. - 01/27/2017 4:28 PM CDT Ambulatory Discharge Medication List [address] [id number] Visit Information Name: AMAIRANI NAQVI [facility] Number: [id number] Current Date: 01/27/2017 16:28:23 [...] Oral, once a day New Routed to [address] [address] Stop Taking the Following Medications: Medication list [...] CNP Signed On:27-JAN-2017 16:28:05 Additional Information: Source: [facility] POWERCHART Document Id: [id number] Miscellaneous - Ara Lange L.P.N. - 01/27/2017 3:58 PM CDT Pediatric Dry House Wheeler Intake/History Pediatric Dry House Wheeler Intake/History Entered On: 01/27/2017 16:01 CDT Performed [...] Preferred Communication Mode : Verbal Languages : Syrian Is Patient Female and 13-50 no hysterectomy [...] LANGE LPN - 01/27/2017 15:58 CDT Source: [facility] Document Id: [id number] CDT!36 documented in this encounter Plan of Treatment Not on filedocumented as of this encounter Visit Diagnoses Not on filedocumented in this encounter Care Teams Zoo Veterinarian Relationship Specialty Start Date End Date Mary Farr M.D. PCP - General 01/20/17 02/03/17 documented as of this encounter
--- OUTSIDE RECORDS SUMMARY | 2022-04-08 09:53 | XMS_ITS | Encounter Summary ---
:2000 Author Organization [facility] Address [address] [place] [address] Care Team Providers Name Role Phone Elsewhere, Pcp Primary Care Provider Unavailable Reason for Visit Reason Comments COVID Inquiry Encounter Details Date Type Department Care Team Description 12/17/2020 Clinical Communication [facility] of [facility], Pcp COVID Inquiry [facility], in [place], [place] [address] [place] [address] 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 Tobacco Use Types Packs/Day Years Used Date Smoking Tobacco: Never Sex Assigned at Date Recorded Not on file documented as of this encounter Miscellaneous Notes Telephone Encounter - Kasia Ayala - 12/17/2020 12:26 PM CDT What is the purpose of the call?: Symptomatic (Calling PCP Office) Calling [place] [facility] What region is the patient calling from? : [place] Have you tested positive for COVID-19 in [...] sending patient for testing in [facility], route encounter to the correct testing pool. documented in this encounter Plan of Treatment Not on filedocumented as of this encounter Visit Diagnoses Not on filedocumented in this encounter Care Teams Critical Care Technician Relationship Specialty Start Date End Date Elsewhere, Pcp PCP - General 03/07/20 documented as of this encounter
--- OUTSIDE RECORDS SUMMARY | 2022-04-08 09:53 | XMS_ITS | Encounter Summary ---
:2000 Author Organization [facility] Address [address] [place] [address] Care Team Providers Name Role Phone Unavailable Primary Care Provider Unavailable Encounter Details Date Type Department Care Team Description 07/23/2016 Hospital Encounter HX FBCV FAMILYPRA Marley Solorzano M.D. [address] [place], [place] [phone] (Wo rk) 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 [...] (127 lb 10.3 oz) 07/23/2016 3:13 PM TITLE CLERK AUTOMOBILE Height 161.5 cm (5' 3.58) 07/23/2016 3:13 PM TITLE CLERK AUTOMOBILE Body Mass Index 22.2 07/23/2016 3:13 PM TITLE CLERK AUTOMOBILE Body Mass Index Percentile 70.10 % 07/23/2016 3:13 PM CS T Growth Chart: CDC (Girls, 2-20 Years) documented in this encounter Progress Notes Marley Hendricks M.D. - 07/23/2016 2:45 PM CST [id number] CHIEF COMPLAINT/ REASON FOR VISIT Dysuria. HISTORY [...] their behalf by Shayy Tipton, a trained administrative medical director. The creation of this record is based on the scribe's personal observations and the provider's statements to them. This document has been thomas cked and approved by the attending provider. Marley Roberson M.D./niko Electronically Signed By: MARLEY HENDRICKS MD On: 08/07/2016 08:26 PM Source: [facility] MHSDOLBEYNONRADSYS Document Id: [id number] E CLERK AUTOMOBILE documented in this encounter Miscellaneous Notes Miscellaneous - Marley Hendricks M.D. - 07/28/2016 9:10 AM TITLE CLERK AUTOMOBILE Custom Result Letter July 28, 2016 AMAIRANI MARTINEZ [facility] [id number] Dear AMAIRANI MARTINEZ, Chlamydia test is negative Result Name Current Result Chlamydia DNA Probe Review 07/23/2016 GC by Nucleic Acid Amplification 07/23/2016 Sincerely, MARLEY ROBERSON [address] [place] [address] Electronic Signature Electronically Signed By: MARLEY HENDRICKS MD On: July 28, 2016 This document has images extracted. Source: [facility] POWERCHART Document Id: [id number] Electronically signed by Anastasia, [facility] Point Of Sale Associate [id number] at 01/02/2017 10:58 AM CDT Miscellaneous - Marley Hendricks M.D. - 07/23/2016 7:46 PM TITLE CLERK AUTOMOBILE Ambulatory Patient Summary [address] [id number] Visit Information Name: AMAIRANI MARTINEZ [facility] Number: [id number] Current Date: 07/23/2016 19:46:28 Physicians [...] day x 7 day(s) New Routed to [address] [address] sulfamethoxazole-trimethoprim (Bactrim DS 800 mg-160 mg oral tablet) 1 Tablet(s), Oral, two times a day x 5 day(s) New Routed to [address] [address] Stop Taking the Following Medications: [...] case of emergency. Electronically Signed By: MARLEY HENDIRCKS MD Signed On:23-JUL-2016 19:46:15 Your Allergies & [...] if you dont have one. Go to [email or web address] and click on Create Your Account. Then, follow the directions to complete the online form. Youll be asked for your [facility] number which you can find at the top of this document. Your Goals/Additional instructions: Source: [facility] POWERCHART Document Id: [id number] E CLERK AUTOMOBILE Miscellaneous - Marley Hendricks M.D. - 07/23/2016 7:46 PM TITLE CLERK AUTOMOBILE Ambulatory Discharge Medication List [address] [id number] Visit Information Name: DONYA AMAIRANICHESTER MOBLEY [facility] Number: [id number] Current Date: 07/23/2016 19:46:27 Attending [...] day x 7 day(s) New Routed to [facility] [address] [place] [address] sulfamethoxazole-trimethoprim (Bactrim DS 800 mg-160 mg oral tablet) 1 Tablet(s), Oral, two times a day x 5 day(s) New Routed to [facility] [address] [place] [address] Stop Taking the Following Medications: [...] MD Signed On:23-JUL-2016 19:46:15 Additional Information: [facility] Document Id: [id number] E CLERK AUTOMOBILE Miscellaneous - Marley Hendricks M.D. - 07/23/2016 7:42 PM TITLE CLERK AUTOMOBILE Addendum by RUBIO SYLVESTER CMA on July 26, 2016 10:46:32 TITLE CLERK AUTOMOBILE Spoke with: ( _ ) Patient ( [...] language for Healthcare discussion: _ Was an agricultural chemicals inspector used for this call? _ Other ( --_ ) From: MARLEY HENDRICKS MD To: FADI Gaona Nurse; Sent: 07/23/2016 19:42:24 TITLE CLERK AUTOMOBILE Please notify Amairani that she has a vaginal infection. I sent rx for metronidazole to the pharmacy.One pill twice daily for seven days. No alcohol. Source: [facility] POWERCHART Document Id: [id number] Electronically signed by Anastasia, [facility] Point Of Sale Associate [id number] at 01/02/2017 10:58 AM CDT Miscellaneous - Araceli Troy L.P.N. - 07/23/2016 3:13 PM CST Pediatric Head Animal Trainer Intake/History Pediatric Head Animal Trainer Intake/History Entered On: 07/23/2016 15:35 TITLE CLERK AUTOMOBILE Performed On: 07/23/2016 15:13 TITLE CLERK AUTOMOBILE by ARACELI TROY BUSINESS TEAM LEADER Intake Chief Complaint : burning with urination [...] Mass Index : 22.2 kg/m2 ARACELI TROY BUSINESS TEAM LEADER - 07/23/2016 15:13 TITLE CLERK AUTOMOBILE General Info Mode of Arrival : Ambulatory Present in Room During Exam/Procedure : Alone Information Given By : Patient Languages : Cymraes Is Patient Female and 13-50 no hysterectomy : Yes Status : Patient denies Are you ? : No ARACELI TROY LPN - 07/23/2016 15:13 TITLE CLERK AUTOMOBILE Subjective Pain Symptoms : No ARACELI TROY LPN - 07/23/2016 15:13 TITLE CLERK AUTOMOBILE Dependent Habits Exposure to Tobacco Smoke : Care provider denies smoking in home Smoking Status : Never smoker Tobacco 2A : No Tobacco Use/Currently Using : No Tobacco Use/Last 30 Days : No Tobacco Use/Last 12 months : No ARACELI TROY LPN - 07/23/2016 15:13 TITLE CLERK AUTOMOBILE Source: [facility] POWERCHART Document Id: [id number] TITLE CLERK AUTOMOBILE!36 E CLERK AUTOMOBILE documented in this encounter Plan of Treatment Not on filedocumented as of this encounter Procedures Procedure Name Priority Date/Time Associated Comments Diagnosis URINALYSIS WITH Routine 07/23/2016 4:10 PM Result s for this MICROSCOPIC TITLE CLERK AUTOMOBILE procedure are i n the results section. BACTERIAL CULTURE, Routine 07/23/2016 4:10 PM Res ults for this AEROBIC, URINE TITLE CLERK AUTOMOBILE procedure are in the results section. TEST, U Routine 07/23/2016 4:10 PM Resu lts for this TITLE CLERK AUTOMOBILE procedure are i n the results section. VAGINITIS BATTERY, Routine 07/23/2016 3:54 PM Res ults for this DNA (GENITAL) TITLE CLERK AUTOMOBILE procedure are in the results section. CHLAMYDIA/GONORRHOEAE Routine 07/23/2016 3:54 PM Results for this AMPLIFIED RNA TITLE CLERK AUTOMOBILE procedure are in the results section. CHLAMYDIA TRACHOMATIS Routine 07/23/2016 3:54 PM Results for this AMPLIFIED RNA TITLE CLERK AUTOMOBILE procedure are in the results section. documented in this encounter Results (ABNORMAL) Urinalysis, Complete, Includes Microscopic (07/23/2016 4:10 PM TITLE CLERK AUTOMOBILE) [facility] Method Time Signature Clarity Cloudy (A) Clear POWERCHART HXUr Color Yellow Colorless POWERCHART Specific 1.020 POWERCHART [place], POCT, U Comment: Reference Range Specific [place]: 1.000-1.035 pH, POCT, Urine 7.5 <5.0 POWERCHART [...] Laterality Urine, First 07/23/2016 4:10 PM Voided TITLE CLERK AUTOMOBILE Marley Baugh M.D. LAB URINE ORDERABLES Performing Organization Address City/State/ZIP Code Phon e Number POWERCHART (ABNORMAL) Bacterial Culture, Aerobic, Urine (07/23/2016 4:10 PM TITLE CLERK AUTOMOBILE) Analysis Performed At Patho logist Time Signature Bacterial SA <=0.5 POWERCHART Culture, (POSITIVE) Aerobic, Urine HXPre [facility] POWERCHART Comment: >100,000 cfu/mL Gram Positive Cocci Presumptive Staphylococcus aureus HXFinal SA POWERCHART Comment: >100,000 cfu/mL Staphylococcus aureus Specimen (Source) Anatomical Collection Method Collection Time Re ceived Time Location / / Volume Laterality Urine, First 07/23/2016 4:10 PM Voided TITLE CLERK AUTOMOBILE Organism Antibiotic Method Susceptibility Staphylococcus aureus Ciprofloxacin [...] POWERCHART Test, Qualitative, Urine (07/23/2016 4:10 PM TITLE CLERK AUTOMOBILE) [facility] Method Time Signature HXBeta-hCG Negative POWERCHART Qualitative Urine Specimen Anatomical Collection Method Collection Time Receive d Time (Source) Location / / Volume Laterality Urine 07/23/2016 4:10 PM 6 4:28 TITLE CLERK AUTOMOBILE PM TITLE CLERK AUTOMOBILE Marley Baugh M.D. LAB URINE ORDERABLES Performing Organization Address City/[facility] Code Phon e Number POWERCHART Chlamydia / Gonorrhoeae Amplified RNA (07/23/2016 3:54 PM TITLE CLERK AUTOMOBILE) Component Value Ref Test Analysis Performed At [facility] Method Time Signature HX GC by Nucleic POWERCHART Acid Amplification HXFinal Negative for POWERCHART Neisseria gonorrhea by RNA amplification . HXFinal Reference: POWERCHART Negative HXFinal If you POWERCHART submitted a female urine sample, please note it is a Laboratory Developed Test. Specimen (Source) Anatomical Collection Method Collection Time Re ceived Time Location / / Volume Laterality Vagina 07/23/2016 3:54 PM TITLE CLERK AUTOMOBILE Marley Baugh M.D. LAB MICROBIOLOGY - GEN ERAL ORDERABLES Performing Organization Address City/[facility]/ZIP Code Phon e Number POWERCHART Chlamydia Trachomatis Amplified RNA (07/23/2016 3:54 PM TITLE CLERK AUTOMOBILE) Component Value Ref Test Analysis Performed At [facility] Method Time Signature HXChlamydia by POWERCHART Nucleic Acid Amplification HXFinal Negative for POWERCHART Chlamydia trachomatis by RNA amplification. HXFinal Reference: POWERCHART Negative HXFinal If you POWERCHART submitted a female urine sample, please note it is a Laboratory Developed Test. Specimen (Source) Anatomical Collection Method Collection Time Re ceived Time Location / / Volume Laterality Vagina 07/23/2016 3:54 PM TITLE CLERK AUTOMOBILE Marley Baugh M.D. LAB MICROBIOLOGY - GEN ERAL ORDERABLES Performing Organization Address City/State/ZIP Code Phon e Number POWERCHART (ABNORMAL) VAGINITIS BATTERY, DNA (GENITAL) (07/23/2016 3:54 PM TITLE CLERK AUTOMOBILE) Component Value Ref Test Analysis Performed At [facility] Method Time Signature HXVaginitis (POSITIVE) POWERCHART Battery, DNA (Genital) HXFinal Trichomonas POWERCHART vaginalis DNA negative HXFinal Gardnerella POWERCHART vaginalis DNA positive HXFinal Paige species POWERCHART DNA negative HXFinal Reference: POWERCHART Negative Specimen (Source) Anatomical Collection Method Collection Time Re ceived Time Location / / Volume Laterality Vagina 07/23/2016 3:54 PM TITLE CLERK AUTOMOBILE Marley Baugh M.D. LAB HISTORICAL ORDERS Performing Organization Address City/State/ZIP Code Phon e Number POWERCHART documented in this encounter Visit Diagnoses Not on filedocumented in this encounter Additional Health Concerns Assessment Noted Time PHQ-9 Depression Total Score: 1 04/22/2014 12:46 PM CD T documented as of this encounter
--- OUTSIDE RECORDS SUMMARY | 2022-04-08 09:53 | XMS_ITS | Encounter Summary ---
:2000 Author Organization [facility] Address [address] [place] [address] Care Team Providers Name Role Phone Mer Encarnacion APRN C.N.PRodney Primary Care Provider [phone] Encounter Details Date Type Department Care Team Description 03/03/2017 Hospital Encounter HX FBCV FAMILYPRA Isai Collins, P.ARodney-CRodney [address] [facility] [place], [place] [phone] (Wo rk) 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 [...] Johnson, P.A.-C. - 03/03/2017 2:44 PM CDT [id number] CHIEF COMPLAINT/REASON FOR VISIT Possible UTI. HISTORY [...] JOHNSON PA-C On: 04/27/2017 09:41 PM Source: [facility] MHSDOLBEYNKAYLASYS Document Id: [id number] documented in this encounter Miscellaneous Notes Miscellaneous - Dickson Johnson - 03/09/2017 9:46 PM CDT Results Notification Document Contains Addenda Addendum by TAMARA FONTANA LPN on March 10, 2017 15:33:22 CDT Spoke with: ( _ ) Patient ( X Lilo ) Parent ( _ ) Spouse ( _ ) Child ( ) Other: _ Call back telephone number: [phone] Reason for Call: -lab results Chief Complaint: Patient's mom informed of message below. She states that their insurnace has changed and now they will need to be seen in [place]. She will talk with patient and find someone in [place] to followup with. Patient/Caller response to Education/Information [...] day Callers preferred language for Healthcare discussion: panamanian Was an acetylene gas compressor used for this call? no Other ( --_ ) Addendum by TAMARA FONTANA LPN on March 10, 2017 15:26:46 CDT Left message for patient's mom to return call. Addendum by VANE ALEXANDER on March 10, 2017 12:33:49 CDT Lilo Ramirez (mom) called back again - she will be off work at 1:45 so call back after that please. [phone] Addendum by VANE ALEXANDER on March 10, 2017 10:07:55 CDT Lilo Ramirez (mom) returned call - best time to reach her today is 12:30 - 1:00 (during her lunch break) - otherwise leave a message and she will try back again when she can. [phone] Addendum by TAMARA FONTANA LPN on March [...] Result Name MBO Review Culture Urine Source: [facility] POWERCHART Document Id: [id number] Miscellaneous - Tamara Fontana, LRodneyP.N. - 03/03/2017 2:54 PM CDT Pediatric Professor Of Apologetics Intake/History Pediatric Professor Of Apologetics Intake/History Entered On: 03/03/2017 14:57 CDT Performed [...] Given By : Patient, Mother Languages : Surinamese Is Patient Female and 13-50 no hysterectomy : Yes Status : Patient denies Are you ? : No TAMARA FONTANA COMPUTER REPAIR ENGINEER - 03/03/2017 14:54 CDT Subjective Pain Symptoms : No TAMARA FONTANA COMPUTER REPAIR ENGINEER - 03/03/2017 14:54 CDT Dependent Habits Exposure to Tobacco Smoke : Care provider denies smoking in home Smoking Status : Never smoker Tobacco 2A : No Tobacco Use/Currently Using : No Tobacco Use/Last 30 Days : No Tobacco Use/Last 12 months : No TAMARA FONTANA COMPUTER REPAIR ENGINEER - 03/03/2017 14:54 CDT Source: [facility] POWERCHART Document Id: [id number] CDT!28 documented in this encounter Plan of [...] Culture, Aerobic, Urine (03/03/2017 3:45 PM CDT) [facility] gist Method Time Signature Bacterial POWERCHART Culture, Aerobic, Urine HXFinal Mixed ranjan. No POWERCHART further studies unless notified. [facility] Microbiology laboratory [phone]. Specimen Anatomical Collection Method Collection Time Receive [...] Color Yellow Colorless POWERCHART Specific <=1.005 POWERCHART [place], POCT, U Comment: Reference Range Specific [place]: 1.000-1.035 pH, POCT, Urine 6.0 <5.0 POWERCHART [...] on filedocumented in this encounter Care Teams Consulting Systems Engineer Relationship Specialty Start Date End Date Mer Encarnacion, DUSTY, C.N.P. PCP - General 02/04/17 03/06/[address] [place] [phone] documented as of this encounter
--- OUTSIDE RECORDS SUMMARY | 2022-04-08 09:53 | XMS_ITS | Encounter Summary ---
:2000 Author Organization [facility] Address [address] [place] [address] Care Team Providers Name Role Phone Elsewhere, Pcp Primary Care Provider Unavailable Reason for Visit Reason Onset Date Comments Outpatient COVID-19 Testing 06/15/2020 Encounter Details Date Type Department Care Team Description 06/15/2020 External Outreach Department of Juan Ag Infect ion Upper Internal Medicine in J, D.O. Respiratory (Primary [place], [place] [address] Dx) [address] [place] [phone] 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 Tobacco Use Types Packs/Day Years Used Date Smoking Tobacco: Never Sex Assigned at Date Recorded Not on file documented as of this encounter Progress Notes Areli Li CRodneyMRodneyARodney - 06/15/2020 8:42 AM CST Encounter created for the drive-through COVID-19 testing. ICAL REGISTERED NURSE documented in this encounter Plan of Treatment Not on filedocumented as of this encounter Procedures Procedure Name Priority Date/Time Associated Diagnosis Comme nts SARS CORONAVIRUS-2 Routine 06/15/2020 1:04 PM Infection Upper Results for this RNA, V CLINICAL REGISTERED NURSE Respiratory procedure are i n the results section. documented in this encounter Results SARS Coronavirus-2 RNA, V Symptomatic (06/15/2020 1:04 PM CLINICAL REGISTERED NURSE) [facility] Method Time Signature SARS-CoV-2 Swab, 06/16/2020 MKTO Specimen Nasopharynx 2:04 PM CLINICAL REGISTERED NURSE Source SARS CoV-2 Undetected Undetected 06/16/2020 MKTO RNA, TMA 2:04 PM CLINICAL REGISTERED NURSE Comment: SARS-CoV-2 RNA absent. This result does not rule out COVID-19 in the patient, as the sensitivity of the test depends o n the timing of the specimen collection and the quality of the specim en. Result should be correlated with patient's history and clinical presentat ion. ----ADDITIONAL INFORMATION---- This test is performed using the Aptima SARS-CoV-2 assay ([employer] which has received Emergency Use Authori zation (EUA) by the U.S. Food and Drug Administration. Fact sheets for this Emergency Use Autho rization (EUA) assay can be found at the following links: For Healthcare Providers: https://www.[employer] a.gov/media/185016/download For Patients: https://www.fda.gov/media/ 987655/download Specimen Anatomical Collection Method Collection Time Receive d Time (Source) Location / / Volume Laterality Varies 06/15/2020 1:04 PM 0 (Nasopharynx) CLINICAL REGISTERED NURSE 11:28 PM CLINICAL REGISTERED NURSE Juan Ag D.O. LAB MICROBIOLOGY - GENERAL O DEJAN Performing Organization Address City/State/ZIP Code Phon e Number [facility]- [address] [place] [address] [place] [address] [address] documented in this encounter Visit Diagnoses Diagnosis Infection Upper Respiratory - Primary documented in this encounter Additional Health Concerns Infection Onset Date Last Indicated Resolved Time COVID19 Pending 06/15/2020 06/15/2020 06/16/2020 2:04 PM CLINICAL REGISTERED NURSE documented as of this encounter Care Teams Chef Saucier Relationship Specialty Start Date End Date Elsewhere, Pcp PCP - General 03/07/20 documented as of this encounter
--- OUTSIDE RECORDS SUMMARY | 2022-04-08 09:53 | XMS_ITS | Encounter Summary ---
:2000 Author Organization [facility] Address [address] [place] [address] Care Team Providers Name Role Phone Unavailable Primary Care Provider Unavailable Encounter Details Date Type Department Care Team Description 09/15/2016 Hospital Encounter HX FBCV FAMILYPRA Mireya Solorzano M.D. [address] [place], [place] [phone] (Wo rk) 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 [...] (128 lb 4.9 oz) 09/15/2016 2:20 PM DIRECTOR OF HEMOPHILIA Height - - Body Mass Index - - documented in this encounter Progress Notes Mireya Hendricks M.D. - 09/15/2016 2:10 PM CST [id number] CHIEF COMPLAINT/ REASON FOR VISIT Sore throat [...] behalf by Mary Tipton, a trained medical terminologist. The creation of this record is based on the scribe's personal observations and the provider's statements to them. This document has been thomas cked and approved by the attending provider. Mireya Roberson M.D./niko Electronically Signed By: MIREYA HENDRICKS MD On: 10/14/2016 08:15 AM Source: [facility] MHSDOLBEYNONRADSYS Document Id: [id number] CTOR OF HEMOPHILIA documented in this encounter Miscellaneous Notes Miscellaneous - Mireya Hendricks M.D. - 09/16/2016 10:21 PM DIRECTOR OF HEMOPHILIA Ambulatory Patient Summary [address] [id number] Visit Information Name: AMAIRANI MARTINEZ [facility] Number: [id number] Current Date: 09/16/2016 22:21:07 Physicians [...] if you dont have one. Go to [email or web address] and click on Create Your Account. Then, follow the directions to complete the online form. Youll be asked for your [facility] number which you can find at the top of this document. Your Goals/Additional instructions: Source: [facility] BLOVES Document Id: [id number] CTOR OF HEMOPHILIA Miscellaneous - Mireya Hendricks M.D. - 09/16/2016 10:21 PM DIRECTOR OF HEMOPHILIA Ambulatory Discharge Medication List [address] [id number] Visit Information Name: AMAIRANI MARTINEZ [facility] Number: [id number] Current Date: 09/16/2016 22:21:06 Attending [...] MD Signed On:16-SEP-2016 22:21:00 Additional Information: Source: [facility] POWERCHART Document Id: [id number] CTOR OF HEMOPHILIA Miscellaneous - Amelie Christie L.P.N. - 09/15/2016 2:20 PM CST Pediatric Game Farm Helper Intake/History Pediatric Game Farm Helper Intake/History Entered On: 09/15/2016 14:24 DIRECTOR OF HEMOPHILIA Performed On: 09/15/2016 14:20 DIRECTOR OF HEMOPHILIA by AMELIE CHRISTIE APPLE PRESS OPERATOR Intake Chief Complaint : c/o ST for [...] Weight Clinic : 58.2 kg AMELIE CHRISTIE APPLE PRESS OPERATOR - 09/15/2016 14:20 DIRECTOR OF HEMOPHILIA General Info Languages : Georgian Is Patient Female and 13-50 no hysterectomy : Yes Status : Patient denies Are you ? : No AMELIE CHRISTIE LPN - 09/15/2016 14:20 DIRECTOR OF HEMOPHILIA Subjective Pain Symptoms : No AMELIE CHRISTIE LPN - 09/15/2016 14:20 DIRECTOR OF HEMOPHILIA Dependent Habits Exposure to Tobacco Smoke : Care provider denies smoking in home Smoking Status : Never smoker Tobacco 2A : No Tobacco Use/Currently Using : No Tobacco Use/Last 30 Days : No Tobacco Use/Last 12 months : No AMELIE CHRISTIE LPN - 09/15/2016 14:20 DIRECTOR OF HEMOPHILIA Source: [facility] POWERCHART Document Id: [id number] DIRECTOR OF HEMOPHILIA!30 CTOR OF HEMOPHILIA documented in this encounter Plan of Treatment Not on filedocumented as of this encounter Procedures Procedure Name Priority Date/Time Associated Diagnosis Comme nts RAPID STREP A Routine 09/15/2016 2:25 PM Results for this SCREEN DIRECTOR OF HEMOPHILIA procedure are i n the results section. RAPID STREP A Routine 09/15/2016 2:25 PM Results for this SCREEN DIRECTOR OF HEMOPHILIA procedure are i n the results section. documented in this encounter Results Rapid Strep A Screen (09/15/2016 2:25 PM DIRECTOR OF HEMOPHILIA) [facility] Method Time Signature HXRapid Strep POWERCHART Confirmation HXPre Negative for POWERCHART Group A Strep by culture. HXFinal Negative for POWERCHART Group A Strep by culture. Specimen Anatomical Collection Method Collection Time Receive d Time (Source) Location / / Volume Laterality Throat 09/15/2016 2:25 PM 7 2:25 DIRECTOR OF HEMOPHILIA PM DIRECTOR OF HEMOPHILIA Mireya Baugh M.D. LAB MICROBIOLOGY - GEN ERAL ORDERABLES Performing Organization Address [facility] Code Phon e Number POWERCHART Rapid Strep A Screen (09/15/2016 2:25 PM DIRECTOR OF HEMOPHILIA) [facility] Method Time Signature HXStrep A POWERCHART Screen Rapid HXFinal Negative for POWERCHART Strep Group A by rapid screen. HXFinal Culture POWERCHART confirmation to follow. Specimen (Source) Anatomical Collection Method Collection Time Re ceived Time Location / / Volume Laterality Throat 09/15/2016 2:25 PM DIRECTOR OF HEMOPHILIA Mireya Baugh M.D. LAB MICROBIOLOGY - GEN ERAL ORDERABLES Performing Organization Address City/[facility] Code Phon e Number POWERCHART documented in this encounter Visit Diagnoses Not on filedocumented in this encounter Additional Health Concerns Assessment Noted Time PHQ-9 Depression Total Score: 1 04/22/2014 12:46 PM CD T documented as of this encounter
--- OUTSIDE RECORDS SUMMARY | 2022-04-08 09:53 | XMS_ITS | Encounter Summary ---
:2000 Author Organization [facility] Address [address] [place] [address] Care Team Providers Name Role Phone Elsewhere, Pcp Primary Care Provider Unavailable Encounter Details Date Type Department Care Team Description 12/18/2020 Admin Visit Department of Family Medicine, [address] [address] [facility] [phone] 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 Tobacco Use Types Packs/Day Years [...] documented as of this encounter Care Teams Compressor Service Technician Relationship Specialty Start Date End Date Elsewhere, Pcp PCP - General 03/07/20 documented as of this encounter
--- OUTSIDE RECORDS SUMMARY | 2022-04-08 09:53 | XMS_ITS | Encounter Summary ---
:2000 Author Organization [facility] Address [address] [place] [address] Care Team Providers Name Role Phone Unavailable Primary Care Provider Unavailable Encounter Details Date Type Department Care Team Description 11/16/2016 Hospital Encounter [facility]X [facility] Jef Bonilla M.D. [address] [place] [address] ( effie) 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 Tobacco [...] Bonilla M.D. - 11/16/2016 3:40 PM CDT [id number] Patient presents initially with her mom and [...] out whether she should see a thoracic health science specialist or a chest surgeon. With the [...] BONILLA MD On: 11/18/2016 04:34 PM Source: [facility] MHSDOLBEYNONRADSYS Document Id: [id number] documented in this encounter Miscellaneous Notes Miscellaneous - Amelie Christie, LRodneyP.N. - 11/18/2016 4:02 PM CDT *General Message From: AMELIE CHRISTIE LPN ( Pediatric Nurse) Sent: 11/18/2016 16:02:57 CDT Subject: *General Message referral submitted to [facility], and to 's insurance Source: [facility] POWERCHART Document Id: [id number] Electronically signed by Anastasia [facility] Marketing Communications Assistant [id number] at 01/18/2017 7:36 AM CDT Miscellaneous - Caballero, Lesley S, L.P.N. - 11/16/2016 3:58 PM CDT Pediatric Yardmaster Intake/History Pediatric Yardmaster Intake/History Entered On: 11/16/2016 16:00 CDT Performed On: 11/16/2016 15:58 CDT by LESLEY CABALLERO COLLAR PADDER BLINDSTITCH Intake Peripheral Pulse Rate : 77 /min [...] 11/16/2016 15:58 CDT General Info Languages : Lao Is Patient Female and 13-50 no hysterectomy : Yes Status : Patient denies Are you ? : No LELSEY CABALLERO LPN - 11/16/2016 15:58 CDT Subjective [...] CABALLERO LPN - 11/16/2016 15:58 CDT Source: [facility] POWERCHART Document Id: [id number] CDT!34 documented in this encounter Plan of [...]
--- OUTSIDE RECORDS SUMMARY | 2022-04-08 09:53 | XMS_ITS | Encounter Summary ---
:2000 Author Organization [facility] Address [address] [place] [address] Care Team Providers Name Role Phone Unavailable Primary Care Provider Unavailable Encounter Details Date Type Department Care Team Description 07/23/2016 Hospital Encounter HX NO MAPPING Mireya Baugh M.D. [address] [place], [place] [phone] (Wo rk) 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 Tobacco Use Types Packs/Day Years Used Date Smoking Tobacco: Never Assessed Sex Assigned at Date Recorded Not on file documented as of this encounter Miscellaneous Notes Miscellaneous - Conversion, Historical Provider Ser - 07/23/2016 11:59 PM SHIPPING INSPECTOR Coding Summary-Paper Based CODING DATE: 08/04/2016 FINAL [facility] STATUS: * Discharged to Home or Self Care [facility]: REASON FOR VISIT DX: [...] RAMOS Date Saved: 08/04/2016 04:34 pm [facility] Document Id: [id number] documented in this encounter Plan of Treatment Not on filedocumented as of this encounter Visit Diagnoses Not on filedocumented in this encounter Additional Health Concerns Assessment Noted Time PHQ-9 Depression Total Score: 1 04/22/2014 12:46 PM CD T documented as of this encounter
--- OUTSIDE RECORDS SUMMARY | 2022-04-08 09:53 | XMS_ITS | Encounter Summary ---
:[address] [facility] Address [address] [place] [address] Care Team Providers Name Role Phone Unavailable [...] (129 lb 10.1 oz) 08/19/2016 6:27 PM MANAGER SUPPLIER Height - - Body Mass Index - - documented in this encounter Progress Notes Ne Grissom - 08/19/2016 5:51 PM CST [id number] CHIEF COMPLAINT/REASON FOR VISIT Abdominal pain. HISTORY [...] concerns or complaints. MEDICATIONS Please see today's [facility] EMR dated 08/19/2016. No changes. ALLERGIES Please see today's [facility] EMR dated 08/19/2016. No changes. VITAL SIGNS Please see today's [facility] EMR dated 08/19/2016. No changes. PHYSICAL EXAMINATION [...] GRISSOM NP On: 08/22/2016 09:03 AM Source: [facility] SAN[facility]IT[facility]OL[facility]ABRINA Document Id: [id number] GER SUPPLIER documented in this encounter Miscellaneous Notes Miscellaneous - Yasmani Cole M.D. - 08/20/2016 7:29 AM CST Custom Result Letter August 20, 2016 AMAIRANI MARTINEZ [address] [facility] [id number] Dear AMAIRANI MARTINEZ, I am pleased to report that your results from the following diagnostic test(s) are benign. If you have questions or concerns, please do not hesitate to call our office. Result Name Current Result XR Abdomen 2 Views 08/19/2016 Sincerely, YASMANI COLE [address] [place] [address] [id number] Electronic Signature Electronically Signed By: YASMANI COLE MD On: August 20, 2016 This document has images extracted. Source: [facility] POWERCHART Document Id: [id number] Electronically signed by Anastasia [facility] Perforator Typist [id number] at 01/17/2017 9:47 PM CDT Miscellaneous - Solomon Hanson L.P.N. - 08/19/2016 6:27 PM CST Pediatric Nipple Threader Intake/History Pediatric Nipple Threader Intake/History Entered On: 08/19/2016 18:30 MANAGER SUPPLIER Performed On: 08/19/2016 18:27 MANAGER SUPPLIER by SOLOMON HANSON LPN Intake Chief Complaint [...] kg SOLOMON HANSON LPN - 08/19/2016 18:27 MANAGER SUPPLIER General Info Information Given By : Patient, Mother Preferred Communication Mode : Verbal Languages : Kazakh Is Patient Female and 13-50 no hysterectomy : Yes Status : Patient denies Are you ? : No SOLOMON HANSON LPN - 08/19/2016 18:27 MANAGER SUPPLIER Subjective Pain Symptoms : Yes SOLOMON HANSON LPN - 08/19/2016 18:27 MANAGER SUPPLIER Pain Scale Pain Scale Verbal 0-10 : Open SOLOMON HANSON LPN - 08/19/2016 18:27 MANAGER SUPPLIER Pain Pain Assessment Grid Pain 1 Location : Abdomen SOLOMON HANSON LPN - 08/19/2016 18:27 MANAGER SUPPLIER Dependent Habits Exposure to Tobacco Smoke : Care provider denies smoking in home Smoking Status : Never smoker Tobacco 2A : No Tobacco Use/Currently Using : No Tobacco Use/Last 30 Days : No Tobacco Use/Last 12 months : No SOLOMON HANSON LPN - 08/19/2016 18:27 MANAGER SUPPLIER Source: [facility] POWERCHART Document Id: [id number] MANAGER SUPPLIER!36 GER SUPPLIER documented in this encounter Plan of Treatment Not on filedocumented as of this encounter Procedures Procedure Name Priority Date/Time Associated Diagnosis Comme nts DX ABDOMEN SUPINE Routine 08/19/2016 7:13 PM Resu lts for this WITH UPRIGHT OR MANAGER SUPPLIER procedure ar e in DECUBITUS 2 VIEWS the result s section. documented in this encounter Results DX Abdomen Supine with Upright or Decubitus 2 Views (08/19/2016 7:13 PM MANAGER SUPPLIER) Anatomical Region Laterality Modality Abdomen Right Radiographic Imaging Specimen (Source) Anatomical Collection Method Collection Time Re ceived Time Location / / Volume Laterality 08/19/2016 7:13 PM MANAGER SUPPLIER Addenda Addendum by Provider, Bob Taylor 08/19/2016 7:13 PM MANAGER SUPPLIER RAD^^^OW XR Abdomen 2 Views 08/19/2016 19:13:46 Impressions 08/20/2016 7:08 AM MANAGER SUPPLIER 1. ??No acute findings. Please see above dictation. Narrative 08/20/2016 7:08 AM MANAGER SUPPLIER EXAM: ??XR Abdomen 2 Views. DEMOGRAPHICS: ??15 [...]
--- OUTSIDE RECORDS SUMMARY | 2022-04-08 09:53 | XMS_ITS | Encounter Summary ---
:2000 Author Organization [facility] Address [address] [place] [address] Care Team Providers Name Role Phone Mary Farr M.D. Primary Care Provider Encounter Details Date Type Department Care Team Description 01/28/2017 Hospital Encounter HX [facility] Mer Encarnacion A PRN, C.N.P. [address] [place], [place] [phone] (Wo rk) 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 Tobacco Use Types Packs/Day Years Used Date Smoking Tobacco: Never Sex Assigned at Date Recorded Not on file documented as of this encounter Nursing Notes Melissa Carlton L.P.N. - 01/31/2017 3:06 PM CDT lab results 01/31/17 Results card sent, per Dr. Diallo. Electronically Signed By: MELISSA CARLTON LPN On: 01/31/2017 03:07 PM Source: [facility] POWERCHART Document Id: [id number] documented in this encounter Plan of Treatment [...] Component Value Ref [facility] Method Time Signature HXChlamydia by POWERCHART [...] Component Value Ref Test Analysis Performed At [facility] Range Method Time Signature HX GC by [...] on filedocumented in this encounter Care Teams Fishing Vessel Mate Relationship Specialty Start Date End Date Mary Farr M.D. PCP - General 01/20/17 02/03/17 documented as of this encounter
--- OUTSIDE RECORDS SUMMARY | 2022-04-08 09:53 | XMS_ITS | Encounter Summary ---
:2000 Author Organization [facility] Address [address] [place] [address] Care Team Providers Name Role Phone Alysha Mer Alba APRN C.N.PRodney Primary Care Provider [phone] Encounter Details Date Type Department Care Team Description 03/03/2017 Hospital Encounter HX NO MAPPING Arturo Collins, P.ARodney-CRodney [address] [facility] [place], [place] [phone] (Wo rk) 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 Tobacco Use Types Packs/Day Years Used Date Smoking Tobacco: Never Sex Assigned at Date Recorded Not on file documented as of this encounter Miscellaneous Notes Miscellaneous - Conversion, Historical Provider Ser - 03/03/2017 11:59 PM CDT Coding Summary-Paper Based CODING DATE: 03/14/2017 FINAL [facility] STATUS: * Discharged to Home or Self Care [facility] AD[facility] DX: REASON FOR VISIT DX: FINAL DX: PRINCIPAL: R30.0 Dysuria SECONDARY: PROCEDURES DOCTOR NAME DATE NOTE: The code number assigned matches the documented diagnosis and / or procedure in the patient's chart. However, the narrative phrase printed from the coding software may appear abbreviated, or result in slightly different terminology. Coded By: NIKHIL MARINO Date Saved: 03/14/2017 09:42 am [facility] Document Id: [id number] documented in this encounter Plan of Treatment Not on filedocumented as of this encounter Visit Diagnoses Not on filedocumented in this encounter Care Teams Top Spotter Relationship Specialty Start Date End Date Mer Encarnacion, DUSTY, C.N.P. PCP - General 02/04/17 03/06/[address] [phone] documented as of this encounter
--- OUTSIDE RECORDS SUMMARY | 2022-04-08 09:54 | XMS_ITS | Encounter Summary ---
:2000 Author Organization [facility] Address [address] [place] [address] Care Team Providers Name Role Phone Unavailable Primary Care Provider Unavailable Encounter Details Date Type Department Care Team Description 07/14/2010 Hospital Encounter HX [facility] Tom Peoples M.D. [address] [place], [place] [address] (Wo rk) 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 [...] (78 lb 14.8 oz) 07/14/2010 8:35 AM BROWN STOCK WASHER Height - - Body Mass Index - - documented in this encounter Progress Notes Venus Peoples M.D. - 07/14/2010 12:00 AM CST [id number] CHIEF COMPLAINT/ REASON FOR VISIT Ear pain [...] Dr. Andrade. KSL/glt Signed Venus Peoples M.D. Fraud Examiner Electronically Signed By:VENUS PEOPLES MD On 07/16/2010 03:34 pm Source: [facility] MHSDOLBEYNONRADSYS Document Id: [id number] N STOCK WASHER documented in this encounter Miscellaneous Notes Miscellaneous - Venus Peoples M.D. - 07/14/2010 8:45 AM CST Ambulatory Patient Summary [address] [address] Visit Information Name: AMAIRANI MARTINEZ Current Date: 07/14/2010 08:45:00 Primary Care Provider: VENUS PEOPLES MD [id number] Your Medications Here is a list of [...] No Appointments found Your Goals/Additional instructions: Source: [facility] POWERCHART Document Id: [id number] Miscellaneous - Venus Peoples M.D. - 07/14/2010 8:45 AM CST Ambulatory Depart Summary [address] [address] Visit Information Name: DONYA AMAIRANICHESTER NICOLELENNIE Current Date: 07/14/2010 08:45:00 Primary Care Provider: VENUS PEOPLES MD [id number] AMAIRANI MARTINEZ has been given the following [...] to the patient and/or family, guardian/caregiver. Source: [facility] POWERCHART Document Id: [id number] Electronically signed by Anastasia [facility] Gear And Spline Grinder [id number] at 01/10/2017 4:58 AM CDT Miscellaneous - Chantell Sandoval - 07/14/2010 8:35 AM CST Pediatric Heat Treat Operator Intake/History Pediatric Heat Treat Operator Intake/History Entered On: 07/14/2010 8:37 BROWN STOCK WASHER Performed On: 07/14/2010 8:35 BROWN STOCK WASHER by CHANTELL UMANA Intake Ambulatory Intake Additional Information: 2 large bullous lesions. no fevers VENUS PEOPLES MD - 07/14/2010 8:44 BROWN STOCK WASHER Chief Complaint: c/o left ear hurting, x 1 day; cold x 1 week Temperature Core: 37.1C(Converted to: 98.8DegF) Apical Heart Rate: 80/min Respiratory Rate: 22/min Systolic Blood Pressure: 102mmHg Diastolic Blood Pressure: 60mmHg NIBP Mean: 74mmHg BP Location: Right upper extremity Actual Weight: 35.800kg(Converted to: 78lb 15oz) Dosing Weight Clinic: 35.80kg CHANTELL UMANA - 07/14/2010 8:35 BROWN STOCK WASHER Subjective Pain Symptoms: No CHANTELL UMANA - 07/14/2010 8:35 BROWN STOCK WASHER Dependent Habits Tobacco Use/Currently Using: No CHANTELL UMANA - 07/14/2010 8:35 BROWN STOCK WASHER Allergy Allergies (Active) NKA Estimated Onset Date: Unspecified ; Created By: CHANTELL UMANA; Reaction Status: Active ; Category: Drug ; Substance: NKA ; Type: Allergy ; Updated By: CHANTELL UMANA; Reviewed Date: 07/14/20108:34 BROWN STOCK WASHER Source: [facility] POWERCHART Document Id: [id number] BROWN STOCK WASHER!3 N STOCK WASHER documented in this encounter Plan of Treatment Not on filedocumented as of this encounter Visit Diagnoses Not on filedocumented in this encounter
--- OUTSIDE RECORDS SUMMARY | 2022-04-08 09:54 | XMS_ITS | Encounter Summary ---
:2000 Author Organization [facility] Address [address] [place] [address] Care Team Providers Name Role Phone Unavailable Primary Care Provider Unavailable Encounter Details Date Type Department Care Team Description 07/06/2011 Hospital Encounter HX [facility] Tom Peoples M.D. [address] [place], [place] [address] (Wo rk) 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 Tobacco [...] (91 lb 0.8 oz) 07/06/2011 1:40 PM DOUBLER HELPER Height 148.6 cm (4' 10.5) 07/06/2011 1:40 PM DOUBLER HELPER Body Mass Index 18.7 07/06/2011 1:40 PM DOUBLER HELPER Body Mass Index Percentile 68.89 % 07/06/2011 1:40 PM CS T Growth Chart: CDC (Girls, 2-20 Years) documented in this encounter Progress Notes Venus Peoples M.D. - 07/06/2011 12:00 AM CST [id number] CHIEF COMPLAINT/ REASON FOR VISIT Fever and [...] more time. KSL/glt Signed Venus Peoples M.D. Title Clerk Automobile Electronically Signed By: VENUS PEOPLES MD On: 07/08/2011 01:55 PM Source: [facility] MHSDOLBEYNONRADSYS Document Id: [id number] LER HELPER documented in this encounter Miscellaneous Notes Miscellaneous - Venus Peoples M.D. - 07/06/2011 1:59 PM CST Ambulatory Patient Summary [address] [address] Visit Information Name: AMAIRANI MARTINEZ Current Date: [...] No Appointments found Your Goals/Additional instructions: Source: [facility] Document Id: [id number] LER HELPER Miscellaneous - Venus Peoples M.D. - 07/06/2011 1:59 PM CST Ambulatory Depart Summary [address] [address] Visit Information Name: DONYA AMAIRANICHESTER NICOLELENNIE Current [...] Oral once a day Additional Information: Source: [facility] Document Id: [id number] LER HELPER Miscellaneous - Chantell Sandoval - 07/06/2011 1:40 PM CST Pediatric Dental Treatment Coordinator Intake/History Pediatric Dental Treatment Coordinator Intake/History Entered On: 07/06/2011 13:43 DOUBLER HELPER Performed On: 07/06/2011 13:40 DOUBLER HELPER by CHANTELL UMANA Intake Chief Complaint : [...] : 18.70kg/m2 CHANTELL UMANA - 07/06/2011 13:40 DOUBLER HELPER Subjective Pain Symptoms : No CHANTELL UMANA - 07/06/2011 13:40 DOUBLER HELPER Dependent Habits Tobacco Use/Currently Using : No Smoking Status : Never smoker CHANTELL UMANA - 07/06/2011 13:40 DOUBLER HELPER Allergy Allergies (Active) NKA Estimated Onset Date: Unspecified ; Created By: CHANTELL UMANA; Reaction Status: Active ; Category: Drug ; Substance: NKA ; Type: Allergy ; Updated By: CHANTELL UMANA; Reviewed Date: 07/06/201113:39 DOUBLER HELPER Source: [facility] POWERCHART Document Id: [id number] DOUBLER HELPER!21 LER HELPER documented in this encounter Plan of Treatment Not on filedocumented as of this encounter Visit Diagnoses Not on filedocumented in this encounter
--- OUTSIDE RECORDS SUMMARY | 2022-04-08 09:54 | XMS_ITS | Encounter Summary ---
:2000 Author Organization [facility] Address [address] [place] [address] Care Team Providers Name Role Phone Mary Farr M.D. Primary Care Provider Encounter Details Date Type Department Care Team Description 09/23/2014 Historical Ophthalmology [facility] Gentry Russell M.D. [address] [place], [place] [phone] (Wo rk) 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 [...] Plan: Trial contacts. F/u one week. jayne [facility] Reports - EYECL Id: [id number] Status: Fnl Electronically signed by Anastasia [facility] Ophthalmology Notes [id number] at 01/26/2017 12:28 PM CDT documented in this encounter Plan of Treatment Not on filedocumented as of this encounter Visit Diagnoses Not on filedocumented in this encounter Additional Health Concerns Assessment Noted Time PHQ-9 Depression Total Score: 1 04/22/2014 12:46 PM CD T documented as of this encounter Care Teams Supervisor Paper Coating Relationship Specialty Start Date End Date Mary Farr M.D. PCP - General 01/20/17 02/03/17 documented as of this encounter
--- OUTSIDE RECORDS SUMMARY | 2022-04-08 09:54 | XMS_ITS | Encounter Summary ---
:[address] [facility] Address [address] [place] [address] Care Team Providers Name Role Phone Unavailable Primary Care Provider Unavailable Encounter Details Date Type Department Care Team Description 08/24/2012 Hospital Encounter [facility]X [facility] Tom Peoples M.D. [address] [place], [place] [address] (Wo rk) 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 Tobacco Use Types Packs/Day Years Used Date Smoking Tobacco: Never Assessed Sex Assigned at Date Recorded Not on file documented as of this encounter Progress Notes Venus Peoples M.D. - 08/24/2012 11:15 AM CST [id number] CHIEF COMPLAINT/REASON FOR VISIT Sore throat. HISTORY OF PRESENT ILLNESS Amairani is 11 years old and here with her mother. Also seen along with CENTRAL SERVICE SUPPLY DISTRIBUTOR student, Christine Corado. Amairani began this morning [...] PEOPLES MD On: 08/29/2012 08:22 AM Source: [facility] MHSDOLBEYNONRADSYS Document Id: [id number] SILK GRADER documented in this encounter Miscellaneous Notes Miscellaneous - Venus Peoples M.D. - 08/24/2012 11:44 AM CST Ambulatory Depart Summary [address] [address] Visit Information Name: AMAIRANI MARTINEZ [facility] Number: [id number] Visit Date: 08/24/2012 11:44:18 Attending [...] your provider for clarification. Additional Information: Source: [facility] POWERCHART Document Id: [id number] RTO [place] - Venus Peoples M.D. - 08/24/2012 11:44 AM CST Ambulatory Patient Summary [address] [address] Visit Information Name: AMAIRANI MARTINEZ [facility] Number: [id number] Current Date: 08/24/2012 11:44:19 Physicians [...] No Appointments found Your Goals/Additional instructions: Source: [facility] POWERCHART Document Id: [id number] RTO [place]and - Chantell Pisano 08/24/2012 11:22 AM CST Pediatric Microphone Boom Operator Intake/History Pediatric Microphone Boom Operator Intake/History Entered On: 08/24/2012 11:24 RAW SILK GRADER Performed On: 08/24/2012 11:22 RAW SILK GRADER by CHANTELL PISANO Intake Chief Complaint : throat hurt, fever, headache, runny nose, cough Temperature Core : 38C(Converted to: 100.4DegF) Apical Heart Rate : 82/min Respiratory Rate : 20/min Systolic Blood Pressure : 100mmHg Diastolic Blood Pressure : 56mmHg NIBP Mean : 71mmHg BP Location : Left upper extremity Blood Pressure Cuff Size : Pediatric CHANTELL PISANO - 08/24/2012 11:22 RAW SILK GRADER Subjective Pain Symptoms : No CHANTELL PISANO - 08/24/2012 11:22 RAW SILK GRADER Dependent Habits Tobacco Use/Currently Using : No Smoking Status : Never smoker CHANTELL PISANO - 08/24/2012 11:22 RAW SILK GRADER Allergy Allergies (Active) NKA Estimated Onset Date: Unspecified ; Created By: CHANTELL UMANA; Reaction Status: Active ; Category: Drug ; Substance: NKA ; Type: Allergy ; Updated By: CHANTELL UMANA; Reviewed Date: 08/24/201211:22 RAW SILK GRADER Source: [facility] POWERCHART Document Id: [id number] SILK GRADER documented in this encounter Plan of Treatment Not on filedocumented as of this encounter Procedures Procedure Name Priority Date/Time Associated Diagnosis Comme nts RAPID STREP A Routine 08/24/2012 11:35 AM Results for this SCREEN RAW SILK GRADER procedure are i n the results section. RAPID STREP A Routine 08/24/2012 11:35 AM Results for this SCREEN RAW SILK GRADER procedure are i n the results section. documented in this encounter Results Rapid Strep A Screen (08/24/2012 11:35 AM RAW SILK GRADER) [facility] Method Time Signature HXRapid Strep POWERCHART Confirmation HXFinal Negative POWERCHART Specimen Anatomical Collection Method Collection Time Receive d Time (Source) Location / / Volume Laterality Throat 08/24/2012 11:35 08/24/2012 AM RAW SILK GRADER 11:35 AM RAW SILK GRADER Venus Peoples M.D. LAB MICROBIOLOGY - GENERAL O DEJAN Performing Organization Address City/[facility] Code Phon e Number POWERCHART Rapid Strep A Screen (08/24/2012 11:35 AM RAW SILK GRADER) [facility] Method Time Signature HXStrep A POWERCHART Screen Rapid HXFinal Negative for POWERCHART Strep Group A by rapid screen. HXFinal Culture POWERCHART confirmation to follow. Specimen (Source) Anatomical Collection Method Collection Time Re ceived Time Location / / Volume Laterality Throat 08/24/2012 11:35 AM RAW SILK GRADER Venus Peoples M.D. LAB MICROBIOLOGY - GENERAL O DEJAN Performing Organization Address City/[facility] Code Phon e Number POWERCHART documented in this encounter Visit Diagnoses Not on filedocumented in this encounter
--- OUTSIDE RECORDS SUMMARY | 2022-04-08 09:54 | XMS_ITS | Encounter Summary ---
:2000 Author Organization [facility] Address [address] [place] [address] Care Team Providers Name Role Phone Unavailable Primary Care Provider Unavailable Encounter Details Date Type Department Care Team Description 05/14/2010 Hospital Encounter HX [facility] FBCV AUDIOLOGY Mojgan Felix am, Au.D. 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 Tobacco Use Types Packs/Day Years Used Date Smoking Tobacco: Never Assessed Sex Assigned at Date Recorded Not on file documented as of this encounter Progress Notes Stas Felix - 05/14/2010 12:00 AM CDT [id number] IMPRESSION / REPORT / PLAN She is [...] By:STAS FELIX On 05/18/2010 05:05 PM Source: [facility] MHSDOLBEYNONRADSYS Document Id: [id number] documented in this encounter Plan of Treatment Not on filedocumented as of this encounter Visit Diagnoses Not on filedocumented in this encounter
--- OUTSIDE RECORDS SUMMARY | 2022-04-08 09:54 | XMS_ITS | Encounter Summary ---
:2000 Author Organization [facility] Address [address] [place] [address] Care Team Providers Name Role Phone Unavailable Primary Care Provider Unavailable Encounter Details Date Type Department Care Team Description 01/09/2014 Hospital Encounter [facility] Fred Hill M.D. [address] [place] [address] (Wo rk) 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 Tobacco [...] Hill M.D. - 01/09/2014 6:35 PM CDT [id number] CHIEF COMPLAINT/REASON FOR VISIT A 13-year-old female [...] HILL MD On: 01/11/2014 11:26 AM Source: [facility] MHSDOLBEYNONRADSYS Document Id: [id number] documented in this encounter Miscellaneous Notes Miscellaneous - Bean Kohler L.PRodneyNRodney - 01/09/2014 7:09 PM CDT Pediatric Ham Smoker Intake/History Pediatric Ham Smoker Intake/History Entered On: 01/09/2014 19:13 CDT Performed [...] Given By : Patient, Father Languages : Paraguayan BEAN KOHLER - 01/09/2014 19:09 CDT Subjective [...] BEAN KOHLER - 01/09/2014 19:09 CDT Source: [facility] POWERCHART Document Id: [id number] CDT!29 documented in this encounter Plan of Treatment Not on filedocumented as of this encounter Visit Diagnoses Not on filedocumented in this encounter
--- OUTSIDE RECORDS SUMMARY | 2022-04-08 09:54 | XMS_ITS | Encounter Summary ---
:2000 Author Organization [facility] Address [address] [place] [address] Care Team Providers Name Role Phone Unavailable Primary Care Provider Unavailable Encounter Details Date Type Department Care Team Description 11/11/2014 Hospital Encounter HX [facility] Vincenzo Ware P.A.-C. [address] [place] [phone] (Wo rk) 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 Tobacco Use [...] Ware P.A.-C. - 11/11/2014 3:13 PM CDT [id number] CHIEF COMPLAINT/REASON FOR VISIT Sports history and [...] WARE PA-C On: 11/13/2014 10:23 AM Source: [facility] MHSDOLBEYNONRADSYS Document Id: [id number] documented in this encounter Miscellaneous Notes Miscellaneous - Kyle Ware P.A.-C. - 11/11/2014 5:17 PM CDT Ambulatory Patient Summary [address] [id number] Visit Information Name: AMAIRANI MARTINEZ [facility] Number: [id number] Current Date: 11/11/2014 17:17:08 Physicians [...] [facility] POWERCHART Document Id: [id number] Miscellaneous - Kyle Ware P.A.-C. - 11/11/2014 5:17 PM CDT Ambulatory Discharge Medication List [address] [id number] Visit Information Name: AMAIRANI MARTINEZ [facility] Number: [id number] Visit Date: 11/11/2014 17:17:07 Attending [...] PA-C Signed On:11-NOV-2014 17:17:04 Additional Information: Source: [facility] POWERCHART Document Id: [id number] Miscellaneous - Flores Ngo L.P.N. - 11/11/2014 3:34 PM CDT Pediatric Household Appliances Service Technician Intake/History Pediatric Household Appliances Service Technician Intake/History Entered On: 11/11/2014 15:39 CDT Performed [...] Given By : Patient, Mother Languages : Swedish Is Patient Female and 13-50 no hysterectomy [...] FLORES NGO - 11/11/2014 15:34 CDT Source: [facility] [employer] Document Id: [id number] CDT!32 documented in this encounter Plan of Treatment Not on filedocumented as of this encounter Visit Diagnoses Not on filedocumented in this encounter Additional Health Concerns Assessment Noted Time PHQ-9 Depression Total Score: 1 04/22/2014 12:46 PM CD T documented as of this encounter
--- OUTSIDE RECORDS SUMMARY | 2022-04-08 09:54 | XMS_ITS | Encounter Summary ---
:2000 Author Organization [facility] Address [address] [place] [address] Care Team Providers Name Role Phone Unavailable [...] (80 lb 0.4 oz) 06/18/2010 3:28 PM CCNP Height - - Body Mass Index - - documented in this encounter Progress Notes Conversion, Historical Provider Ser - 06/18/2010 12:00 AM CST [id number] IMPRESSION/REPORT/PLAN 1. Resolving otitis media of the [...] II, M.D. ENT CC: Amanda Peoples M.D. Volleyball Player [address] [place] [id number] Electronically Signed By:JORDYN KNIGHT II, MD On 06/23/2010 02:53 pm Modified by:JORDYN KNIGHT II, MD On 06/23/2010 02:53 pm Source: [facility] MHSDOLBEYNONRADSYS Document Id: [id number] documented in this encounter Miscellaneous Notes Miscellaneous - Conversion, Historical Provider Ser - 06/18/2010 3:28 PM CCNP Pediatric Batchmaker Intake/History Pediatric Batchmaker Intake/History Entered On: 06/18/2010 15:29 CCNP Performed On: 06/18/2010 15:28 CCNP by MIESHA ALLISON LPN Intake Chief Complaint: Post-op Temperature Core: 36.4C(Converted to: 97.5DegF) (LOW) Systolic Blood Pressure: 110mmHg Diastolic Blood Pressure: 60mmHg NIBP Mean: 77mmHg BP Location: Right upper extremity Actual Weight: 36.300kg(Converted to: 80lb 0oz) Dosing Weight Clinic: 36.30kg MIESHA ALLISON LPN - 06/18/2010 15:28 CCNP Subjective Pain Symptoms: No MIESHA ALLISON LPN - 06/18/2010 15:28 CCNP Dependent Habits Tobacco Use/Currently Using: No MIESHA ALLISON LPN - 06/18/2010 15:28 CCNP Allergy Allergies (Active) NKA Estimated Onset Date: Unspecified ; Created By: CHANTELL UMANA; Reaction Status: Active ; Category: Drug ; Substance: NKA ; Type: Allergy ; Updated By: CHANTELL UMANA; Reviewed Date: 06/18/201015:27 CCNP Source: [facility] POWERCHART Document Id: [id number] CCNP!14 documented in this encounter Plan of Treatment Not on filedocumented as of this encounter Visit Diagnoses Not on filedocumented in this encounter
--- OUTSIDE RECORDS SUMMARY | 2022-04-08 09:54 | XMS_ITS | Encounter Summary ---
:2000 Author Organization [facility] Address [address] [place] [address] Care Team Providers Name Role Phone Unavailable Primary Care Provider Unavailable Encounter Details Date Type Department Care Team Description 09/05/[address] [facility] Sa manolo Farr M.D. [phone] (Wo rk) 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 Tobacco Use Types [...] (130 lb 1.1 oz) 09/05/2013 8:24 AM WOOL HAT HYDRAULICKER Height - - Body Mass Index - - documented in this encounter Progress Notes Mary Farr M.D. - 09/05/2013 8:21 AM CST [id number] CHIEF COMPLAINT/REASON FOR VISIT Sore throat, cough, [...] test negative. IMPRESSION/REPORT/PLAN Viral illness. Last fever market development specialist was 5 hours prior to the visit. May use ibuprofen or acetaminophenfor fever and discomfort. Best not to use true aspirin. The illness should run its course. Mary Farr M.D./ayaan Electronically Signed By: MARY FARR MD On: 09/06/2013 11:02 AM Source: [facility] MHSDOLBEYNONRADSYS Document Id: [id number] HAT HYDRAULICKER documented in this encounter Miscellaneous Notes Miscellaneous - Mary Farr M.D. - 09/05/2013 10:18 AM CST Ambulatory Patient Summary [address] [phone] Visit Information Name: AMAIRANI MARTINEZ [facility] Number: [id number] Current Date: 09/05/2013 10:18:56 Physicians [...] appointment detail needed. Your Goals/Additional instructions: Source: [facility] POWERCHART Document Id: [id number] HAT HYDRAULICKER Miscellaneous - Mary Farr M.D. - 09/05/2013 10:18 AM CST Ambulatory Depart Summary [address] [phone] Visit Information Name: AMAIRANI MARTINEZ [facility] Number: [id number] Visit Date: 09/05/2013 10:18:55 Attending [...] in case of emergency. Additional Information: Source: [facility] POWERCHART Document Id: [id number] HAT HYDRAULICKER Kya - Mary Farr M.D. - 09/05/2013 8:52 AM CST School Excuse 05 September 2013 AMAIRANI MARTINEZ [address] [facility] [id number] Dear AMAIRANI MARTINEZ, You were examined in [...] for 24 hours. Sincerely, MARY FARR [address] [place] [address] Electronic Signature Electronically Signed By: MARY FARR MD On: 05 September 2013 This document has images extracted. Source: [facility] POWERCHART Document Id: [id number] Electronically signed by Anastasia [facility] Laser Technician [id number] at 01/04/2017 6:58 AM CDT Kya - Amelie Christie L.P.NRodney - 09/05/2013 8:24 AM CST Pediatric Airplane Electrical Repairer Intake/History Pediatric Airplane Electrical Repairer Intake/History Entered On: 09/05/2013 8:28 WOOL HAT HYDRAULICKER Performed On: 09/05/2013 8:24 WOOL HAT HYDRAULICKER by AMELIE CHRISTIE Intake Chief Complaint : [...] kg PRATIK, AMELIE TRUJILLO - 09/05/2013 8:24 WOOL HAT HYDRAULICKER General Info Languages : Mozambican PRATIK AMELIE RONNIE - 09/05/2013 8:24 WOOL HAT HYDRAULICKER Subjective Pain Symptoms : No PRATIKAMELIE RONNIE - 09/05/2013 8:24 WOOL HAT HYDRAULICKER Dependent Habits Tobacco Use/Currently Using : No Exposure to Tobacco Smoke : Care provider denies smoking in home Smoking Status : Never smoker PRATIKAMELIE - 09/05/2013 8:24 WOOL HAT HYDRAULICKER Source: [facility] POWERCHART Document Id: [id number] WOOL HAT HYDRAULICKER!23 HAT HYDRAULICKER documented in this encounter Plan of Treatment Not on filedocumented as of this encounter Procedures Procedure Name Priority Date/Time Associated Diagnosis Comme nts RAPID STREP A Routine 09/05/2013 8:31 AM Results for this SCREEN WOOL HAT HYDRAULICKER procedure are i n the results section. RAPID STREP A Routine 09/05/2013 8:31 AM Results for this SCREEN WOOL HAT HYDRAULICKER procedure are i n the results section. documented in this encounter Results Rapid Strep A Screen (09/05/2013 8:31 AM WOOL HAT HYDRAULICKER) [facility] Method Time Signature HXRapid Strep POWERCHART Confirmation HXFinal Negative POWERCHART Specimen Anatomical Collection Method Collection Time Receive d Time (Source) Location / / Volume Laterality Throat 09/05/2013 8:31 AM 4 8:31 WOOL HAT HYDRAULICKER AM WOOL HAT HYDRAULICKER Mary Farr M.D. LAB MICROBIOLOGY - GENERAL O RDERABLES Performing Organization Address City/State/ZIP Code Phon e Number POWERCHART Rapid Strep A Screen (09/05/2013 8:31 AM WOOL HAT HYDRAULICKER) [facility] Method Time Signature HXStrep A POWERCHART Screen Rapid HXFinal Negative for POWERCHART Strep Group A by rapid screen. HXFinal Culture POWERCHART confirmation to follow. Specimen (Source) Anatomical Collection Method Collection Time Re ceived Time Location / / Volume Laterality Throat 09/05/2013 8:31 AM WOOL HAT HYDRAULICKER Mary Farr M.D. LAB MICROBIOLOGY - GENERAL O RDERABLES Performing Organization Address City/State/ZIP Code Phon e Number POWERCHART documented in this encounter Visit Diagnoses Not on filedocumented in this encounter
--- OUTSIDE RECORDS SUMMARY | 2022-04-08 09:54 | XMS_ITS | Encounter Summary ---
:2000 Author Organization [facility] Address [address] [place] [address] Care Team Providers Name Role Phone Unavailable [...] Provider Ser - 06/05/2010 12:00 AM CDT [id number] IMPRESSION/REPORT/PLAN 1. Resolving perforation of the tympanic [...] II, MD On 06/13/2010 09:48 pm Source: [facility] MHSDOLBEYNONRADSYS Document Id: [id number] documented in this encounter Miscellaneous Notes Miscellaneous - Conversion, Historical Provider Ser - 06/05/2010 10:42 AM CDT Pediatric Child Adolescent Care Intake/History Pediatric Child Adolescent Care Intake/History Entered On: 06/05/2010 10:43 CDT Performed [...] CHANTELL UMANA; Reviewed Date: 06/05/201010:42 CDT Source: [facility] [employer] Document Id: [id number] CDT!14 documented in this encounter Plan of Treatment Not on filedocumented as of this encounter Visit Diagnoses Not on filedocumented in this encounter
--- OUTSIDE RECORDS SUMMARY | 2022-04-08 09:54 | XMS_ITS | Encounter Summary ---
:2000 Author Organization [facility] Address [address] [place] [address] Care Team Providers Name Role Phone Unavailable Primary Care Provider Unavailable Encounter Details Date Type Department Care Team Description 04/10/2010 Hospital Encounter HX [facility] Tom Peoples M.D. [address] [place], [place] [address] (Wo rk) 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 Tobacco [...] Peoples M.D. - 04/10/2010 12:00 AM CDT [id number] CHIEF COMPLAINT/REASON FOR VISIT Left ear pain. [...] her Claritin. KSL/glt Signed Venus Peoples M.D. Adult Live In Caregiver Electronically Signed By:VENUS PEOPLES MD On 04/17/2010 02:47 pm Source: [facility] MHSDOLBEYNONRADSYS Document Id: [id number] documented in this encounter Miscellaneous Notes Miscellaneous - Larish, Lacy M - 04/10/2010 4:12 PM CDT Pediatric Churn Tender Intake/History Pediatric Churn Tender Intake/History Entered On: 04/10/2010 16:12 CDT Performed [...] CHANTELL UMANA; Reviewed Date: 04/10/201016:11 CDT Source: [facility] POWERCHART Document Id: [id number] CDT!3 Miscellaneous - Chantell Sandoval - 03/03/2009 4:32 PM CDT Pediatric Growth Pediatric Growth Entered On: 04/10/2010 16:33 CDT Performed On: 03/03/2009 16:32 CDT by CHANTELL UMANA Pediatric Growth Height: 132.50cm(Converted to: 4ft 4in, 4.35ft, 52.17in) Actual Weight: 29.100kg(Converted to: 64lb 2oz, 64.155lb, 1,026.472oz) Body Mass Index: 17kg/m2 CHANTELL UMANA - 04/10/2010 16:32 CDT Source: [employer] Document Id: [id number] CDT!5 Miscellaneous - Chantell Sandoval - 03/25/2008 4:33 PM CDT Pediatric Growth Pediatric Growth Entered On: 04/10/2010 16:33 CDT Performed On: 03/25/2008 16:33 CDT by CHANTELL UMANA Pediatric Growth Height: 126.50cm(Converted to: 4ft 2in, 4.15ft, 49.80in) Actual Weight: 25.800kg(Converted to: 56lb 14oz, 56.879lb, 910.068oz) Body Mass Index: 16kg/m2 CHANTELL UMANA - 04/10/2010 16:33 CDT Source: [employer] Document Id: [id number] CDT!5 documented in this encounter Plan of Treatment Not on filedocumented as of this encounter Visit Diagnoses Not on filedocumented in this encounter
--- OUTSIDE RECORDS SUMMARY | 2022-04-08 09:54 | XMS_ITS | Encounter Summary ---
:2000 Author Organization [facility] Address [address] [place] [address] Care Team Providers Name Role Phone Unavailable Primary Care Provider Unavailable Encounter Details Date Type Department Care Team Description 09/28/2010 Hospital Encounter HX [facility] Tom Peoples M.D. 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 - 09/28/2010 12:00 AM CST [id number] CHIEF COMPLAINT/ REASON FOR VISIT Fevers. HISTORY [...] difficulty breathing. KSL/sks Signed Venus Peoples M.D. Anodizing Line Operator Electronically Signed By: VENUS PEOPLES MD On: 10/02/2010 04:21 Source: [facility] MHSDOLBEYNONRADSYS Document Id: [id number] DIGGER TRUCK DRIVER documented in this encounter Miscellaneous Notes Miscellaneous - Venus Peoples M.D. - 09/28/2010 11:34 AM CST Ambulatory Patient Summary [address] [address] Visit Information Name: AMAIRANI MARTINEZ Current Date: 09/28/2010 11:34:05 Primary Care Provider: VENUS PEOPLES MD [phone] Your Medications Here is a list of [...] No Appointments found Your Goals/Additional instructions: Source: [employer] Document Id: [id number] Kya - Venus Peoples M.D. - 09/28/2010 11:34 AM CST [place] [address] Visit Information Name: AMAIRANI MARTINEZ Current Date: 09/28/2010 11:34:05 Primary Care Provider: VENUS PEOPLES MD [phone] AMAIRANI MARTINEZ has been given the following [...] to the patient and/or family, guardian/caregiver. Source: [employer] Document Id: [id number] arima Boland - Chanetll Sandoval - 09/28/2010 11:18 AM CST Pediatric Mushroom Picker Intake/History Pediatric Mushroom Picker Intake/History Entered On: 09/28/2010 11:20 HOLE DIGGER TRUCK DRIVER Performed On: 09/28/2010 11:18 HOLE DIGGER TRUCK DRIVER by CHANTELL UMANA Intake Ambulatory Intake Additional Information: started Thurs. Temps 102, ibuprofen and cough med at night. last night emesis after coughing. scarred tms, ow nml exam VENUS PEOPLES MD - 09/28/2010 11:33 HOLE DIGGER TRUCK DRIVER Chief Complaint: fever, cough x 4 days Temperature Core: 37.8C(Converted to: 100.0DegF) Apical Heart Rate: 96/min (HI) Respiratory Rate: 22/min Systolic Blood Pressure: 96mmHg Diastolic Blood Pressure: 54mmHg NIBP Mean: 68mmHg BP Location: Right upper extremity Actual Weight: 35.200kg(Converted to: 77lb 10oz) Dosing Weight Clinic: 35.20kg CHANTELL UMANA - 09/28/2010 11:18 HOLE DIGGER TRUCK DRIVER Subjective Pain Symptoms: No CHANTELL UMANA - 09/28/2010 11:18 HOLE DIGGER TRUCK DRIVER Dependent Habits Tobacco Use/Currently Using: No CHANTELL UMANA - 09/28/2010 11:18 HOLE DIGGER TRUCK DRIVER Allergy Allergies (Active) NKA Estimated Onset Date: Unspecified ; Created By: CHANTELL UMANA; Reaction Status: Active ; Category: Drug ; Substance: NKA ; Type: Allergy ; Updated By: CHANTELL UMANA; Reviewed Date: 09/28/201011:18 HOLE DIGGER TRUCK DRIVER Source: [facility] POWERCHART Document Id: [id number] HOLE DIGGER TRUCK DRIVER!3 DIGGER TRUCK DRIVER documented in this encounter Plan of Treatment Not on filedocumented as of this encounter Visit Diagnoses Not on filedocumented in this encounter
--- OUTSIDE RECORDS SUMMARY | 2022-04-08 09:54 | XMS_ITS | Encounter Summary ---
:2000 Author Organization [facility] Address [address] [place] [address] Care Team Providers Name Role Phone Unavailable [...] 05/22/2010 11:24 AM C DT Growth Chart: [facility] (Girls, 2-20 Years) documented in this encounter Progress Notes Conversion, Historical Provider Ser - 05/22/2010 12:00 AM CDT [id number] IMPRESSION/REPORT/PLAN 1. Chronic otitis media. 2. Chronic [...] limits. The tongue is within normal limits. Paton's and Stensen's ducts are within normal limits [...] by:JORDYN KNIGHT On 05/26/2010 02:00 am Source: [facility] MHSDOLBEYNONRADSYS Document Id: [id number] documented in this encounter Miscellaneous Notes Miscellaneous - Conversion, Historical Provider Ser - 05/22/2010 11:24 AM CDT Adult Plate Developer Intake/History Adult Plate Developer Intake/History Entered On: 05/22/2010 11:33 CDT Performed [...] Habits Tobacco Use/Currently Using: Terese MIESHA ALLISON [facility] - 05/22/2010 11:24 CDT Allergies Allergies (Active) NKA Estimated Onset Date: Unspecified ; Created By: CHANTELL UMANA; Reaction Status: Active ; Category: Drug ; Substance: NKA ; Type: Allergy ; Updated By: CHANTELL UMANA; Reviewed Date: 05/22/201011:21 CDT [facility] Document Id: [id number] CDT!14 documented in this encounter Plan of Treatment Not on filedocumented as of this encounter Visit Diagnoses Not on filedocumented in this encounter
--- OUTSIDE RECORDS SUMMARY | 2022-04-08 09:54 | XMS_ITS | Encounter Summary ---
:2000 Author Organization [facility] Address [address] [place] [address] Care Team Providers Name Role Phone Unavailable Primary Care Provider Unavailable Encounter Details Date Type Department Care Team Description 09/04/2014 Hospital Encounter HX [facility] Tha Mccrary M.D. [address] [place], [place] [phone] (Wo rk) 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 Tobacco Use Types Packs/Day Years Used Date Smoking Tobacco: Never Assessed Sex Assigned at Date Recorded Not on file documented as of this encounter Progress Notes Gentry Cruz M.D. - 09/04/2014 3:46 PM CST [id number] The documentation for this visit is available in [employer] IMPRESSION/REPORT/PLAN #1 Myopia both eyes. Increased from previous exam. Plan: Update glasses. F/u six months. INT Gentry Cruz M.D./tarun Electronically Signed By: GENTRY CRUZ MD On: 09/10/2014 08:04 AM Source: [facility] MHSDOLBEYNONRADSYS Document Id: [id number] AL SCIENCES INSTRUCTOR documented in this encounter Miscellaneous Notes Miscellaneous - Gentry Cruz M.D. - 09/04/2014 4:28 PM CST Ambulatory Patient Summary [address] [id number] Visit Information Name: AMAIRANI MARTINEZ [facility] Number: [id number] Current Date: 09/04/2014 16:28:55 [...] appointment detail needed. Your Goals/Additional instructions: Source: [facility] POWERCHART Document Id: [id number] AL SCIENCES INSTRUCTOR Miscellaneous - Gentry Cruz M.D. - 09/04/2014 4:28 PM CST Ambulatory Discharge Medication List [facility] [address] [place] [id number] Visit Information Name: AMAIRANI MARTINEZ [facility] Number: [id number] Visit Date: 09/04/2014 16:28:54 [...] MD Signed On:04-SEP-2014 16:28:53 Additional Information: Source: [facility] POWERCHART Document Id: [id number] AL SCIENCES INSTRUCTOR documented in this encounter Plan of Treatment Not on filedocumented as of this encounter Visit Diagnoses Not on filedocumented in this encounter Additional Health Concerns Assessment Noted Time PHQ-9 Depression Total Score: 1 04/22/2014 12:46 PM CD T documented as of this encounter
--- OUTSIDE RECORDS SUMMARY | 2022-04-08 09:54 | XMS_ITS | Encounter Summary ---
:2000 Author Organization [facility] Address [address] [place] [address] Care Team Providers Name Role Phone Unavailable Primary Care Provider Unavailable Encounter Details Date Type Department Care Team Description 09/22/2012 Hospital Encounter HX [facility] David Cortez M.D. [address], [place] [phone] (Wo rk) 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 Tobacco Use Types Packs/Day Years Used Date Smoking Tobacco: Never Assessed Sex Assigned at Date Recorded Not on file documented as of this encounter Plan of Treatment Not on filedocumented as of this encounter Visit Diagnoses Not on filedocumented in this encounter
--- OUTSIDE RECORDS SUMMARY | 2022-04-08 09:54 | XMS_ITS | Encounter Summary ---
:2000 Author Organization [facility] Address [address] [place] [address] Care Team Providers Name Role Phone Unavailable Primary Care Provider Unavailable Encounter Details Date Type Department Care Team Description 05/21/2010 Hospital Encounter HX [facility] Tom Peoples M.D. [address] [place], [place] [address] (Wo rk) 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 Tobacco [...] Peoples M.D. - 05/21/2010 12:00 AM CDT [id number] CHIEF COMPLAINT/ REASON FOR VISIT Preanesthesia medical [...] surgery date. KSL/glt Signed Venus Peoples M.D. Auto Damage Estimator Electronically Signed By:VENUS PEOPLES MD On 05/26/2010 02:41 pm Source: [facility] MHSDOLBEYNONRADSYS Document Id: [id number] documented in this encounter Miscellaneous Notes Miscellaneous - Chantell Sandoval - 05/21/2010 3:51 PM CDT Pediatric Driller'S Assistant Intake/History Pediatric Driller'S Assistant Intake/History Entered On: 05/21/2010 15:52 CDT Performed [...] CHANTELL UMANA; Reviewed Date: 05/14/201014:19 CDT Source: [facility] [employer] Document Id: [id number] CDT!20 documented in this encounter Plan of Treatment Not on filedocumented as of this encounter Visit Diagnoses Not on filedocumented in this encounter
--- OUTSIDE RECORDS SUMMARY | 2022-04-08 09:54 | XMS_ITS | Encounter Summary ---
:2000 Author Organization [facility] Address [address] [place] [address] Care Team Providers Name Role Phone Unavailable Primary Care Provider Unavailable Encounter Details Date Type Department Care Team Description 06/18/2010 Hospital Encounter HX [facility] AUDIOLOGY Mojgan Felix am, Au.D. 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 Tobacco Use Types Packs/Day Years Used Date Smoking Tobacco: Never Assessed Sex Assigned at Date Recorded Not on file documented as of this encounter Progress Notes Stas Felix - 06/18/2010 12:00 AM CST [id number] IMPRESSION / REPORT / PLAN She is following with Dr. Andrade. CHIEF COMPLAINT / REASON FOR VISIT Seen for an audiologic evaluation following tube removal. PHYSICAL EXAM AREA EXAM TEXT ENT Tympanograms are normal in both ears. Puretone testing results are consistent with normal hearing bilaterally. MOA/sks Signed Amari Forrest. Audiology Electronically Signed By:STAS FELIX On 06/22/2010 01:08 PM Source: [facility] MHSDOLBEYNONRADSYS Document Id: [id number] documented in this encounter Plan of Treatment Not on filedocumented as of this encounter Visit Diagnoses Not on filedocumented in this encounter
--- OUTSIDE RECORDS SUMMARY | 2022-04-08 09:54 | XMS_ITS | Encounter Summary ---
:2000 Author Organization [facility] Address [address] [place] [address] Care Team Providers Name Role Phone Unavailable Primary Care Provider Unavailable Encounter Details Date Type Department Care Team Description 11/15/2013 Hospital Encounter HX [facility] OWTha Marie M.D. [address] [place], [place] [phone] (Wo rk) 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 Tobacco Use Types Packs/Day Years Used Date Smoking Tobacco: Never Assessed Sex Assigned at Date Recorded Not on file documented as of this encounter Plan of Treatment Not on filedocumented as of this encounter Visit Diagnoses Not on filedocumented in this encounter
--- OUTSIDE RECORDS SUMMARY | 2022-04-08 09:54 | XMS_ITS | Encounter Summary ---
:2000 Author Organization [facility] Address [address] [place] [address] Care Team Providers Name Role Phone Unavailable Primary Care Provider Unavailable Encounter Details Date Type Department Care Team Description 02/15/2012 Hospital Encounter HX [facility] PED[facility] Tom Wellington M.D. [address] [place], [place] [address] (Wo rk) 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 Tobacco [...] Wellington M.D. - 02/15/2012 12:00 AM CDT [id number] CHIEF COMPLAINT/REASON FOR VISIT Ear pain HISTORY [...] WELLINGTON MD On: 02/17/2012 08:47 AM Source: [facility] MHSDOLBEYNONRADSYS Document Id: [id number] documented in this encounter Miscellaneous Notes Miscellaneous - Venus Wellington M.D. - 02/15/2012 10:41 AM CDT Ambulatory Patient Summary [address] [address] Visit Information Name: AMAIRANI MARTINEZ Current Date: [...] No Appointments found Your Goals/Additional instructions: Source: [facility] POWERCHART Document Id: [id number] Miscellaneous - Venus Wellington M.D. - 02/15/2012 10:41 AM CDT Ambulatory Depart Summary [place] [id number] [facility] [place] [address] Visit Information Name: AMAIRANI MARTINEZ Visit Date: [...] your provider for clarification. Additional Information: [facility] Document Id: [id number] Miscellaneous - Nikki Pisano - 02/15/2012 10:29 AM CDT Pediatric Data Solutions Architect Intake/History Pediatric Data Solutions Architect Intake/History Entered On: 02/15/2012 10:31 CDT Performed [...] NIKKI UMANA; Reviewed Date: 02/15/201210:28 CDT [facility] Document Id: [id number] documented in this encounter Plan of Treatment Not on filedocumented as of this encounter Visit Diagnoses Not on filedocumented in this encounter
--- OUTSIDE RECORDS SUMMARY | 2022-04-08 09:54 | XMS_ITS | Encounter Summary ---
:2000 Author Organization [facility] Address [address] [place] [address] Care Team Providers Name Role Phone Mary Farr M.D. Primary Care Provider Encounter Details Date Type Department Care Team Description 09/04/2014 Historical Ophthalmology [facility] OPH Gentry Russell M.D. [address] [place], [place] [phone] (Wo rk) 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 [...] both eyes. CDM Reports - EYEGEN Id: [id number] Status: Fnl documented in this encounter Plan of Treatment Not on filedocumented as of this encounter Visit Diagnoses Not on filedocumented in this encounter Additional Health Concerns Assessment Noted Time PHQ-9 Depression Total Score: 1 04/22/2014 12:46 PM CD T documented as of this encounter Care Teams Employment Office Clerk Relationship Specialty Start Date End Date Mary Farr M.D. PCP - General 01/20/17 02/03/17 documented as of this encounter
--- OUTSIDE RECORDS SUMMARY | 2022-04-08 09:54 | XMS_ITS | Encounter Summary ---
:2000 Author Organization [facility] Address [address] [place] [address] Care Team Providers Name Role Phone Unavailable Primary Care Provider Unavailable Encounter Details Date Type Department Care Team Description 11/14/2013 Hospital Encounter HX [facility] Tha Hanley M.D. [address] [place], [place] [phone] (Wo rk) 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 Tobacco Use Types Packs/Day Years Used Date Smoking Tobacco: Never Assessed Sex Assigned at Date Recorded Not on file documented as of this encounter Progress Notes Wnidy Gutierrez, C.O.A. - 11/14/2013 4:22 PM CDT [...] Right Eye Manifest Grid Date : 09/22/2012 SORTING AND FOLDING SUPERVISOR 11/14/2013 CDT Performed by : Anni Sphere : -3.50 -3.75 Visual Acuity Distance : 20/20 20/20 Visual Acuity Near : 20/20 WINDY GUTIERREZ RIKKI - 11/14/2013 16:22 CDT BILLY GUTIERREZYSTAL RIKKI - 11/14/2013 16:22 CDT Left Eye Manifest Grid Date : 09/22/2012 SORTING AND FOLDING SUPERVISOR 11/14/2013 CDT Performed by : Anni Sphere [...] Child Mix Eye Drop Time : 16:27 SORTING AND FOLDING SUPERVISOR Child Mix Eye Drop Comment : vco WINDY GUTIERREZ RIKKI - 11/14/2013 16:22 CDT Source: [facility] POWERCHART Document Id: [id number] CDT!41 documented in this encounter H&P Notes Gentry Cruz M.D. - 11/14/2013 4:09 PM CDT [id number] CHIEF COMPLAINT/REASON FOR VISIT Routine ophthalmic exam. IMPRESSION/REPORT/PLAN Increased myopia, both eyes. PLAN: Update glasses prescription. Follow up in 1 year. Gentry Cruz M.D./ladan Electronically Signed By: GENTRY CRUZ MD On: 11/15/2013 08:00 AM Source: [facility] MHSDOLBEYNONRADSYS Document Id: [id number] documented in this encounter Miscellaneous Notes Miscellaneous - Gentry Cruz M.D. - 11/14/2013 4:45 PM CDT Ambulatory Patient Summary [place] [facility] [address] [place] [id number] Visit Information Name: AMAIRANI MARTINEZ [facility] Number: [id number] Current Date: 11/14/2013 16:45:19 Physicians [...] Source: [facility] POWERCHART Document Id: [id number] Miscellaneous - Gentry Cruz M.D. - 11/14/2013 4:45 PM CDT Ambulatory Discharge Medication List [facility] [address] [place], [place] [address], [place] [phone] Visit Information Name: AMAIRANI MARTINEZ [facility] Number: [id number] Visit Date: 11/14/2013 16:45:18 Attending [...] MD Signed On:14-NOV-2013 16:45:17 Additional Information: Source: [facility] POWERCHART Document Id: [id number] documented in this encounter Plan of Treatment Not on filedocumented as of this encounter Visit Diagnoses Not on filedocumented in this encounter
--- OUTSIDE RECORDS SUMMARY | 2022-04-08 09:54 | XMS_ITS | Encounter Summary ---
:2000 Author Organization [facility] Address [address] [place] [address] Care Team Providers Name Role Phone Unavailable Primary Care Provider Unavailable Encounter Details Date Type Department Care Team Description 06/15/2016 Hospital Encounter HX NO MAPPING Mer Encarnacion, DUSTY, C.N.P. [address] [place], [place] [phone] (Wo rk) 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 Tobacco Use Types Packs/Day Years Used Date Smoking Tobacco: Never Assessed Sex Assigned at Date Recorded Not on file documented as of this encounter Miscellaneous Notes Miscellaneous - Conversion, Historical Provider Ser - 06/15/2016 11:59 PM ADVERTISING PRODUCTION MANAGER Coding Summary-Paper Based CODING DATE: 06/24/2016 FINAL [facility] STATUS: * Discharged to Home or Self Care [facility]: REASON FOR [...] MOSS Date Saved: 06/24/2016 11:23 am Source: [employer] Document Id: [id number] documented in this encounter Plan of Treatment Not on filedocumented as of this encounter Visit Diagnoses Not on filedocumented in this encounter Additional Health Concerns Assessment Noted Time PHQ-9 Depression Total Score: 1 04/22/2014 12:46 PM CD T documented as of this encounter
--- OUTSIDE RECORDS SUMMARY | 2022-04-08 09:54 | XMS_ITS | Encounter Summary ---
:2000 Author Organization [facility] Address [address] [place] [address] Care Team Providers Name Role Phone Unavailable Primary Care Provider Unavailable Encounter Details Date Type Department Care Team Description 01/28/[address] [facility] Tom Peoples M.D. [address] [place], [place] [address] (Wo rk) 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 Tobacco [...] Peoples M.D. - 01/28/2012 12:00 AM CDT [id number] CHIEF COMPLAINT/REASON FOR VISIT 11-year-old well-child visit [...] PEOPLES MD On: 02/03/2012 03:20 PM Source: [facility] MHSDOLBEYNONRADSYS Document Id: [id number] documented in this encounter Procedure Notes Chantell [...] CHANTELL PISANO - 01/28/2012 15:27 CDT CHANTELL PISNAO - 01/28/2012 15:27 CDT CHANTELL PISANO - 01/28/2012 15:27 CDT CHANTELL PISANO - 01/28/2012 15:27 CDT Source: [employer] Document Id: [id number] Chantell Pisano - 01/28/2012 3:22 PM CDT Vision Testing Vision Testing Entered On: 01/28/2012 15:23 CDT Performed On: 01/28/2012 15:22 CDT by CHANTELL PISANO Vision Testing Corrective Lenses : Glasses Eye, Right with Correction : 20/25 Eye, Left w/Correction : 20/30 CHANTELL PISANO - 01/28/2012 15:22 CDT Source: [employer] Document Id: [id number] documented in this encounter Miscellaneous Notes Miscellaneous - Venus Peoples M.D. - 01/28/2012 3:48 PM CDT Ambulatory Patient Summary [address] [address] Visit Information Name: AMAIRANI MARTINEZ Current Date: [...] found Your Goals/Additional instructions: Source: [facility] POWERCHART Document Id: [id number] Miscellaneous - Venus Peoples M.D. - 01/28/2012 3:48 PM CDT Ambulatory Depart Summary [place] [id number] [place] [address] Visit Information Name: AMAIRANI AMRTINEZ Visit Date: 01/28/2012 15:48:50 Attending Provider: VENUS [...] your provider for clarification. Additional Information: Source: [facility] POWERCHART Document Id: [id number] Miscellaneous - Chantell Pisano - 01/28/2012 3:20 PM CDT Pediatric Fixture Designer Intake/History Pediatric Fixture Designer Intake/History Entered On: 01/28/2012 15:22 CDT Performed [...] CHANTELL UMANA; Reviewed Date: 01/28/201215:20 CDT Source: [facility] POWERCHART Document Id: [id number] documented in this encounter Plan of Treatment Not on filedocumented as of this encounter Visit Diagnoses Not on filedocumented in this encounter
--- OUTSIDE RECORDS SUMMARY | 2022-04-08 09:54 | XMS_ITS | Encounter Summary ---
:2000 Author Organization [facility] Address [address] [place] [address] Care Team Providers Name Role Phone Unavailable Primary Care Provider Unavailable Encounter Details Date Type Department Care Team Description 12/10/2015 Hospital En[facility] Sa manolo Farr M.D. [phone] (Wo rk) 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 Tobacco Use Types [...] Absolute: 4.58 12/10/15 Lymph Absolute: 2.88 12/10/15 [place] Absolute: 0.81 High 12/10/15 Eos Absolute: 0.08 [...] FARR MD On: 12/13/2015 12:23 PM Source: [facility] POWERCHART Document Id: [id number] documented in this encounter Miscellaneous Notes Miscellaneous - Mary Farr M.D. - 12/13/2015 12:25 PM CDT Normal Results Letter December 13, 2015 AMAIRANI MARTINEZ [address] [facility] [id number] Dear AMAIRANI MARTINEZ, I am pleased to [...] Absolute (x10(9)/L) 2.88 12/10/2015 1.20 - 5.20 [place] Absolute (x10(9)/L) (H) 0.81 12/10/2015 0.00 - 0.80 Eos Absolute (x10(9)/L) 0.08 12/10/2015 0.00 - 0.50 Baso Absolute (x10(9)/L) 0.02 12/10/2015 0.00 - 0.20 tFerritin Lvl (ng/mL) 37.0 12/10/2015 11.0 - 307.0 Sincerely, MARY FARR [facility] [place] [address] Electronic Signature Electronically Signed By: MARY FARR MD On: December 13, 2015 This document has images extracted. Source: [facility] POWERCHART Document Id: [id number] Electronically signed by Conversion, [facility] Environmental Field Technician [id number] at 01/01/2017 1:11 PM CDT Miscellaneous - Mary Farr M.D. - 12/10/2015 5:16 PM CDT Ambulatory Patient Summary [address] [facility] [place] [phone] Visit Information Name: AMAIRANI MARTINEZ [facility] Number: [id number] Current Date: 12/10/2015 17:16:18 Physicians [...] if you dont have one. Go to [email or web address] and click on Create Your Account. Then, follow the directions to complete the online form. Youll be asked for your [facility] number which you can find at the [...] one or two doses per week. Source: [facility] [employer] Document Id: [id number] Miscellaneous - Mary Farr M.D. - 12/10/2015 5:16 PM CDT Ambulatory Discharge Medication List [address] [id number] Visit Information Name: DONYA, AMAIRANICHESTER MOBLEY [facility] Number: [id number] Visit Date: 12/10/2015 17:16:17 Attending [...] MD Signed On:10-DEC-2015 17:13:52 Additional Information: Source: [facility] LivestageCHART Document Id: [id number] Miscellaneous - Amelie Christie L.P.N. - 12/10/2015 4:30 PM CDT Pediatric Red Cross Worker Intake/History Pediatric Red Cross Worker Intake/History Entered On: 12/10/2015 16:34 CDT Performed [...] 12/10/2015 16:30 CDT General Info Languages : Cypriot Is Patient Female and 13-50 no hysterectomy [...] CHRISTIE LPN - 12/10/2015 16:30 CDT [facility] POWERCHART Document Id: [id number] CDT!32 documented in this encounter Plan of [...] Mononucleosis Screen, POCT (12/10/2015 5:09 PM CDT) [facility]jefferson health gist Method Time Signature Infectious POWERCHART [place] Test, S HXFinal Negative POWERCHART HXFinal Reference: [...] X109L Erythrocytes 4.58 4.10 - 5.20 POWERCHART [id number] Hemoglobin 13.6 12.2 - 14.8 POWERCHART GDL [...]
--- OUTSIDE RECORDS SUMMARY | 2022-04-08 09:54 | XMS_ITS | Encounter Summary ---
:2000 Author Organization [facility] Address [address] [place] [address] Care Team Providers Name Role Phone Unavailable Primary Care Provider Unavailable Encounter Details Date Type Department Care Team Description 04/22/2014 Hospital Encounter [facility] Sa manolo Farr M.D. [phone] (Wo rk) 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 Tobacco Use Types [...] Farr M.D. - 04/22/2014 7:43 AM CDT [id number] CHIEF COMPLAINT/REASON FOR VISIT This 13-1/2-year-old girl is seen for a well-child check. 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 Her academic performance is appropriate, according to [...] has some facial acne. She has an wrcg-lkx-ovyagty benzoyl peroxide product for that and is [...] all four extremities. Babinski response negative bilaterally. Zpfmxs-og-xmhy testing normal. Romberg negative. Normal tone. IMPRESSION/REPORT/PLAN [...] Mary Farr M.D./ladan Electronically Signed By: MARY AFRR MD On: 04/23/2014 12:48 PM Source: [facility] MHSDOLBEYNONRADSYS Document Id: [id number] documented in this encounter Miscellaneous Notes Miscellaneous [...] FARR MD - 05/04/2014 12:46 CDT Source: [employer] Document Id: [id number] CDT!15 Loricellaneous - Mary Farr M.D. - 04/22/2014 9:46 AM CDT Ambulatory Patient Summary [address] [id number] Visit Information Name: DONYA AMAIRANICHESTER MOBLEY [facility] Number: [id number] Current Date: 04/22/2014 09:46:04 Physicians [...] appointment detail needed. Your Goals/Additional instructions: Source: [facility] POWERCHART Document Id: [id number] Miscellaneous - Mary Farr M.D. - 04/22/2014 9:46 AM CDT Ambulatory Discharge Medication List [address] [id number] Visit Information Name: AMAIRANI MARTINEZ [facility] Number: [id number] Visit Date: 04/22/2014 09:46:03 Attending [...] MD Signed On:22-APR-2014 09:45:57 Additional Information: Source: [facility] POWERCHART Document Id: [id number] Miscellaneous - Vy Maya L.P.N. - 04/22/2014 8:03 AM CDT Pediatric Wrapper Sizer Intake/History Pediatric Wrapper Sizer Intake/History Entered On: 04/22/2014 8:06 CDT Performed [...] Information Given By : Mother Languages : Maldivian Is Patient Female and 13-50 no hysterectomy [...] MAYA LPN - 04/22/2014 8:03 CDT Source: [facility] [email or web address] Document Id: [id number] CDT!31 documented in this encounter Plan of Treatment Not on filedocumented as of this encounter Visit Diagnoses Not on filedocumented in this encounter Additional Health Concerns Assessment Noted Time PHQ-9 Depression Total Score: 1 04/22/2014 12:46 PM CD T documented as of this encounter
--- OUTSIDE RECORDS SUMMARY | 2022-04-08 09:54 | XMS_ITS | Encounter Summary ---
:2000 Author Organization [facility] Address [address] [place] [address] Care Team Providers Name Role Phone Unavailable Primary Care Provider Unavailable Encounter Details Date Type Department Care Team Description 06/15/2016 Hospital Encounter HX [facility] FAMILYPRA Kecia Garcia APRN, C.N.P. [address], [place] [phone] (Wo rk) 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 [...] (132 lb 2.7 oz) 06/15/2016 3:14 PM BREASTFEEDING PEER COUNSELOR Height 162 cm (5' 3.78) 06/15/2016 3:14 PM BREASTFEEDING PEER COUNSELOR Body Mass Index 22.84 06/15/2016 3:14 PM BREASTFEEDING PEER COUNSELOR Body Mass Index Percentile 75.63 % 06/15/2016 [...] APRN, CNP On: 06/15/2016 03:53 PM Source: [facility] POWERCHART Document Id: [id number] STFEEDING PEER COUNSELOR documented in this encounter Nursing Notes Kecia [...] ?? Muffled voice ?? New rash ?? [phone] Alyssa [facility], [address] [place] [address], [place] [address]. All rights reserved. This information is not intended as a substitute for professional medical care. Always follow your healthcare professional's instructions. This document has images extracted. Please consider using Source MDx for all your patient education needs. Source: [facility] POWERCHART Document Id: [id number] STFEEDING PEER COUNSELOR documented in this encounter Miscellaneous Notes Miscellaneous - Kecia Garcia APRN, C.N.P. - 06/15/2016 3:52 PM CST Ambulatory Discharge Medication List [address] [id number] Visit Information Name: AMAIRANI NAQVI [facility] Number: [id number] Current Date: 06/15/2016 15:52:51 Attending Provider: KECIA GARCIA APRN [facility] Primary Care Provider: SHAYY HERNANDEZ MD [...] CNP Signed On:15-JUN-2016 15:52:43 Additional Information: Source: [facility] POWERCHART Document Id: [id number] STFEEDING PEER COUNSELOR Miscellaneous - Kecia Garcia APRN, C.N.P. - 06/15/2016 3:52 PM CST Ambulatory Patient Summary [address] [id number] Visit Information Name: AMAIRANI NAQVI [facility] Number: [id number] Current Date: 06/15/2016 [...] are not improving over the next week. [id number] Prompt Medical Attention if any of the [...] ?? Muffled voice ?? New rash ?? [id number] Alyssa [facility], [address] [place] [address], [place] [address]. All rights reserved. This information is not [...] if you dont have one. Go to [email or web address] and click on Create Your Account. Then, follow the directions to complete the online form. Youll be asked for your [facility] number which you can find at the top of this document. Your Goals/Additional instructions: This document has images extracted. Please consider using Source MDx for all your patient education needs. Source: [facility] POWERCHART Document Id: [id number] STFEEDING PEER COUNSELOR Miscellaneous - Ara Lange L.P.NRodney - 06/15/2016 3:14 PM CST Pediatric Emergency Room Nurse Intake/History Pediatric Emergency Room Nurse Intake/History Entered On: 06/15/2016 15:16 BREASTFEEDING PEER COUNSELOR Performed On: 06/15/2016 15:14 BREASTFEEDING PEER COUNSELOR by ARA LANGE LPN Intake Chief Complaint [...] kg/m2 ARA LANGE MOIZ - 06/15/2016 15:14 BREASTFEEDING PEER COUNSELOR General Info Present in Room During Exam/Procedure : Mother Information Given By : Patient, Mother Preferred Communication Mode : Verbal Languages : Turkmen Is Patient Female and 13-50 no hysterectomy : Yes Status : Patient denies Are you ? : No ARA LANGE MOIZ - 06/15/2016 15:14 BREASTFEEDING PEER COUNSELOR Subjective Pain Symptoms : Yes ARA LANGE MOIZ - 06/15/2016 15:14 BREASTFEEDING PEER COUNSELOR Pain Scale Pain Scale Verbal 0-10 : Open ARA LANGE MOIZ - 06/15/2016 15:14 BREASTFEEDING PEER COUNSELOR Pain Pain Assessment Grid Pain 1 Location : Throat Intensity : 7 Time Pattern : Intermittent ARA LANGE MOIZ - 06/15/2016 15:14 BREASTFEEDING PEER COUNSELOR Dependent Habits Exposure to Tobacco Smoke : Care provider denies smoking in home Smoking Status : Never smoker Tobacco 2A : No Tobacco Use/Currently Using : No Tobacco Use/Last 30 Days : No Tobacco Use/Last 12 months : No ARA LANGE MOIZ - 06/15/2016 15:14 BREASTFEEDING PEER COUNSELOR Source: [facility] POWERCHART Document Id: [id number] BREASTFEEDING PEER COUNSELOR!45 STFEEDING PEER COUNSELOR documented in this encounter Plan of Treatment Not on filedocumented as of this encounter Procedures Procedure Name Priority Date/Time Associated Diagnosis Comme nts RAPID STREP A Routine 06/15/2016 3:51 PM Results for this SCREEN BREASTFEEDING PEER COUNSELOR procedure are i n the results section. RAPID STREP A Routine 06/15/2016 3:51 PM Results for this SCREEN BREASTFEEDING PEER COUNSELOR procedure are i n the results section. documented in this encounter Results Rapid Strep A Screen (06/15/2016 3:51 PM BREASTFEEDING PEER COUNSELOR) [facility] Method Time Signature HXRapid Strep POWERCHART Confirmation HXPre Negative for POWERCHART Group A Strep by culture. HXFinal Negative for POWERCHART Group A Strep by culture. Specimen Anatomical Collection Method Collection Time Receive d Time (Source) Location / / Volume Laterality Throat 06/15/2016 3:51 PM 6 3:51 BREASTFEEDING PEER COUNSELOR PM BREASTFEEDING PEER COUNSELOR Kecia J Myrom GERIATRIC PHYSICAL THERAPIST, C.N.P. LAB MICROBIOLOGY - GENERAL ORDERABLES Performing Organization Address City/State/ZIP Code Phon e Number POWERCHART Rapid Strep A Screen (06/15/2016 3:51 PM BREASTFEEDING PEER COUNSELOR) [facility] Method Time Signature HXStrep A POWERCHART Screen Rapid HXFinal Negative for POWERCHART Strep Group A by rapid screen. HXFinal Culture POWERCHART confirmation to follow. Specimen (Source) Anatomical Collection Method Collection Time Re ceived Time Location / / Volume Laterality Throat 06/15/2016 3:51 PM BREASTFEEDING PEER COUNSELOR Kecia Garcia APRN, C.N.P. LAB MICROBIOLOGY - GENERAL ORDERABLES Performing Organization Address City/State/[facility] Code Phon e Number POWERCHART documented in this encounter Visit Diagnoses Not on filedocumented in this encounter Additional Health Concerns Assessment Noted Time PHQ-9 Depression Total Score: 1 04/22/2014 12:46 PM CD T documented as of this encounter
--- OUTSIDE RECORDS SUMMARY | 2022-04-08 09:54 | XMS_ITS | Encounter Summary ---
:2000 Author Organization [facility] Address [address] [place] [address] Care Team Providers Name Role Phone Unavailable Primary Care Provider Unavailable Encounter Details Date Type Department Care Team Description 04/21/2010 Hospital Encounter HX [facility] PEDIATRIC Tom Peoples M.D. [address] [place], [place] [address] (Wo rk) 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 Tobacco [...] Peoples M.D. - 04/21/2010 12:00 AM CDT [id number] CHIEF COMPLAINT/REASON FOR VISIT Persistent ear infection. [...] prescribed Claritin, but insurance does not cover rhlo-hrn-msspxmn medications and they have not been able to get that yet. CURRENT MEDICATIONS Post-visit Medication Reconciliation 1. Cefdinir 250 mg per 5 ml, 10 ml p.o. once daily x10 days. 2. Dbsf-xnm-lwseacn Loratadine or Cetirizine p.o. p.r.n. allergies. ALLERGIES [...] otic drops. KSL/glt Signed Venus Peoples M.D. [employer] Electronically Signed By:VENUS PEOPLES MD On 04/27/2010 11:37 am Source: [facility] MHSDOLBEYNONRADSYS Document Id: [id number] documented in this encounter Miscellaneous Notes Miscellaneous - Chantell Sandoval - 04/21/2010 3:33 PM CDT Pediatric Food Safety Scientist Intake/History Pediatric Food Safety Scientist Intake/History Entered On: 04/21/2010 15:36 CDT Performed [...] CHANTELL UMANA; Reviewed Date: 04/21/201015:33 CDT [facility] Document Id: [id number] CDT!16 documented in this encounter Plan of Treatment Not on filedocumented as of this encounter Visit Diagnoses Not on filedocumented in this encounter
--- OUTSIDE RECORDS SUMMARY | 2022-04-08 09:54 | XMS_ITS | Encounter Summary ---
:2000 Author Organization [facility] Address [address] [place] [address] Care Team Providers Name Role Phone Unavailable Primary Care Provider Unavailable Encounter Details Date Type Department Care Team Description 03/15/2013 Hospital Encounter HX [facility] PEDIATRIC Tom Peoples M.D. [address] [place], [place] [address] (Wo rk) 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 [...] Peoples M.D. - 03/15/2013 12:34 PM CDT [id number] CHIEF COMPLAINT/REASON FOR VISIT A 12-year-old well-child [...] PEOPLES MD On: 03/19/2013 04:50 PM Source: [facility] MHSDOLBEYNONRADSYS Document Id: [id number] documented in this encounter Procedure Notes Conversion, Historical Provider Ser - 03/15/2013 1:29 PM CDT Vision Testing Vision Testing Entered On: 03/15/2013 13:29 CDT Performed On: 03/15/2013 13:29 CDT by JENN BOLIVAR LPN Vision Testing Corrective Lenses : Glasses Color Vision : Pass Eye, Right with Correction : 20/20 Eye, Left w/Correction : 20/25 JENN BOLIVAR LPN - 03/15/2013 13:29 CDT Source: [facility] POWERReocar Document Id: [id number] CDT!6 Conversion, Historical Provider Ser - 03/15/2013 [...] BOLIVAR LPN - 03/15/2013 13:29 CDT Source: [facility] The Invisible Armor Document Id: [id number] CDT!44 documented in this encounter Miscellaneous Notes Miscellaneous - Venus Peoples M.D. - 03/15/2013 1:49 PM CDT Ambulatory Depart Summary [address] [address] Visit Information Name: AMAIRANI MARTINEZ [facility] Number: [id number] Visit Date: 03/15/2013 13:49:04 [...] your provider for clarification. Additional Information: Source: [employer] Document Id: [id number] Miscellaneous - Venus Peoples M.D. - 03/15/2013 1:49 PM CDT Ambulatory Patient Summary [address] [address] Visit Information Name: AMAIRANI MARTINEZ [facility] Number: [id number] Current Date: 03/15/2013 13:49:04 [...] No Appointments found Your Goals/Additional instructions: Source: [employer] Document Id: [id number] Miscellaneous - Conversion, Historical Provider Ser - 03/15/2013 1:14 PM CDT Pediatric Senior Bookkeeper Intake/History Pediatric Senior Bookkeeper Intake/History Entered On: 03/15/2013 13:15 CDT Performed [...] Info Preferred Name : Amairani Languages : Canadian JENN BOLIVAR LPN - 03/15/2013 13:14 CDT Subjective Pain Symptoms : No JENN BOLIVAR LPN - 03/15/2013 13:14 CDT Dependent Habits Tobacco Use/Currently Using : No Exposure to Tobacco Smoke : Care provider denies smoking in home Smoking Status : Never smoker JENN BOLIVAR LPN - 03/15/2013 13:14 CDT Source: [facility] POWERCHART Document Id: [id number] CDT!26 documented in this encounter Plan of Treatment Not on filedocumented as of this encounter Visit Diagnoses Not on filedocumented in this encounter
--- OUTSIDE RECORDS SUMMARY | 2022-04-08 09:54 | XMS_ITS | Encounter Summary ---
:2000 Author Organization [facility] Address [address] [place] [address] Care Team Providers Name Role Phone Unavailable Primary Care Provider Unavailable Encounter Details Date Type Department Care Team Description 09/22/2012 Hospital Encounter HX [facility] David Campuzano M.D. [address] [place], [place] [phone] (Wo rk) 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 Tobacco Use Types Packs/Day Years Used Date Smoking Tobacco: Never Assessed Sex Assigned at Date Recorded Not on file documented as of this encounter Progress Notes Nneka Mcnair - 09/22/2012 10:22 AM CST [facility] Exam [facility] Exam Entered On: 09/22/2012 10:45 TROLLEY CAR OVERHAULER Performed On: 09/22/2012 10:22 TROLLEY CAR OVERHAULER by NNEKA MCNAIR Chief Complaint and History Chief Complaint : Routine exam (Comment: NEW CE. [NNEKA MCNAIR - 09/22/2012 10:22 TROLLEY CAR OVERHAULER] ) Pain Symptoms : No Smoking Status : Never smoker Comment : HERE WITH MOTHER. STATES ---- 3 MOS HX OF H/A'S. 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 GOOD GEN HEALTH. ROS--WNL. NNEKA MCNAIR - 09/22/2012 10:22 TROLLEY CAR OVERHAULER Vision Testing Right Eye Vision Testing : With glasses - primary, 20/25, -1 Left Eye Vision Testing : With glasses - primary, 20/30 (Comment: PH25 [NNEKA MCNAIR - 09/22/2012 10:22 TROLLEY CAR OVERHAULER] ) Near Vision Right Eye : With glasses - primary, J-3 (Comment: -2 [NATALIYA MCNAIRNA Tom - 09/22/2012 10:22 TROLLEY CAR OVERHAULER] ) Near Vision Left Eye : With glasses - primary, J-1 NATALIYA MCNAIRNA Tom - 09/22/2012 10:22 TROLLEY CAR OVERHAULER Refraction Current Glasses Rx Grid Glasses/RE Glasses/LE Sphere : -3.00 -3.00 Prism : 1/2 BASE UP XUNATALIYAMARYELLEN Santos - 09/22/2012 10:22 TROLLEY CAR OVERHAULER XUNATALIYANA Tom - 09/22/2012 10:22 TROLLEY CAR OVERHAULER Right Eye Manifest Grid Date : 09/22/2012 TROLLEY CAR OVERHAULER Performed by : [employer] Sphere : -3.50 Visual Acuity Distance : 20/20 Visual Acuity Near : 20/20 XUNATALIYAMARYELLEN Santos - 09/22/2012 10:22 TROLLEY CAR OVERHAULER Left Eye Manifest Grid Date : 09/22/2012 TROLLEY CAR OVERHAULER Performed by : Tech Sphere : -3.50 Visual Acuity Distance : 20/20 Visual Acuity Near : 20/20 XUNATALIYAMARYELLEN Santos - 09/22/2012 10:22 TROLLEY CAR OVERHAULER Ocular Testing EOMS : Normal Comment : 6 TO 3 6 TO 3 -MG Pupils : PERRLA Confrontation Lea : RE Normal, LE Normal NATALIYA MCNAIRNA Tom - 09/22/2012 10:22 TROLLEY CAR OVERHAULER Eye Drops Exam Date of Last Eye Exam : 09/22/2012 TROLLEY CAR OVERHAULER Child Mix Eye Drop Eye : Both eyes Child Mix Eye Drop Amount : One drop Child Mix Eye Drop Time : 10:43 TROLLEY CAR OVERHAULER Child Mix Eye Drop Comment : PERMISSION GIVEN BY MOTHER. NATALIYA MCNAIRNA Tom - 09/22/2012 10:22 TROLLEY CAR OVERHAULER Source: [facility] POWERCHART Document Id: [id number] LEY CAR OVERHAULER documented in this encounter H&P Notes Ping Rosario M.D. - 09/22/2012 10:01 AM CST [id number] Very pleasant patient who comes in today with myopia and hyperopia with headache. IMPRESSION / REPORT / PLAN We will see her back in 1 year, sooner if there are difficulties or problems. Everything appears to be doing very, very good. We will see her sooner if there are any difficulties or problems. Ping Rosario M.D./arnold DOCID: [id number] Electronically Signed By: PING ROSARIO MD On: 09/27/2012 07:52 AM Source: [facility] MHSDOLBEYNKAYLASYS Document Id: [id number] LEY CAR OVERHAULER documented in this encounter Miscellaneous Notes Miscellaneous - Ping Rosario M.D. - 09/22/2012 11:20 AM CST Ambulatory Patient Summary [facility] [address] [place] [address] Visit Information Name: AMAIRANI MARTINEZ [facility] Number: [id number] Current Date: 09/22/2012 11:20:46 Physicians [...] No Appointments found Your Goals/Additional instructions: Source: [facility] POWERCHART Document Id: [id number] LEY CAR OVERHAULER Miscellaneous - Ping Rosario M.D. - 09/22/2012 11:20 AM CST Ambulatory Depart Summary [facility] [address] [place] [address] Visit Information Name: AMAIRANI MARTINEZ [facility] Number: [id number] Visit Date: 09/22/2012 11:20:45 Attending [...] clarification. Additional Information: Yes - . Source: [facility] POWERCHART Document Id: [id number] LEY CAR OVERHAULER documented in this encounter Plan of Treatment Not on filedocumented as of this encounter Visit Diagnoses Not on filedocumented in this encounter
--- OUTSIDE RECORDS SUMMARY | 2022-04-08 09:54 | XMS_ITS | Encounter Summary ---
:2000 Author Organization [facility] Address [address] [place] [address] Care Team Providers Name Role Phone Unavailable [...] Provider Ser - 05/14/2010 12:00 AM CDT [id number] IMPRESSION/REPORT/PLAN 1. Chronic suppurative otitis media of [...] of the hearing and gross clinical speech hospital receptionist thresholds are at least close to [...] limits. The tongue is within normal limits. [place]'s and Stensen's ducts are within normal limits [...] II, M.D. ENT CC: Amanda Peoples M.D. It Security Specialist [address] [place] [address] Electronically Signed By:JORDYN KNIGHT On 05/19/2010 11:26 am Modified by:JORDYN KNIGHT On 05/19/2010 11:26 am Source: [facility] MHSDOLBEYNONRADSYS Document Id: [id number] documented in this encounter Nursing Notes Conversion, Historical Provider Ser - 05/19/2010 10:57 AM CDT ENT Surgery Examine and clean ears, and removal (L) ear tube scheduled for 05/28/10 at [facility] with Dr. Knight. Insurance referral completed. No prior authorization is required per [facility] policy. Electronically Signed By:MIESHA ALLISON LPN On 05/19/2010 10:59 am Source: [facility] POWERAthletes' Performance Document Id: [id number] documented in this encounter Miscellaneous Notes Miscellaneous - Conversion, Historical Provider Ser - 05/14/2010 2:20 PM CDT Pediatric Behavioral School Counselors Intake/History Pediatric Behavioral School Counselors Intake/History Entered On: 05/14/2010 14:22 CDT Performed [...] CHANTELL UMANA; Reviewed Date: 05/14/201014:19 CDT Source: [facility] Kiptronic Document Id: [id number] CDT!14 documented in this encounter Plan of Treatment Not on filedocumented as of this encounter Visit Diagnoses Not on filedocumented in this encounter
--- OUTSIDE RECORDS SUMMARY | 2022-04-08 09:54 | XMS_ITS | Encounter Summary ---
:2000 Author Organization [facility] Address [address] [place] [address] Care Team Providers Name Role Phone Unavailable Primary Care Provider Unavailable Encounter Details Date Type Department Care Team Description 05/04/2010 Hospital Encounter [facility]X [facility] PEDIATRIC Tom Peoples M.D. [address] [place], [place] [address] (Wo rk) 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 Tobacco [...] Peoples M.D. - 05/04/2010 12:00 AM CDT [id number] CHIEF COMPLAINT/REASON FOR VISIT Continued ear drainage. [...] for 05/14/2010. KSL/sks Signed Venus Peoples M.D. Oracle Sql Developer Electronically Signed By:VENUS PEOPLES MD On 05/07/2010 04:01 pm Source: [facility] MHSDOLBEYNONRADSYS Document Id: [id number] documented in this encounter Miscellaneous Notes Miscellaneous - Chantell Sandoval - 05/04/2010 10:42 AM CDT Pediatric Eastern Philosophy Professor Intake/History Pediatric Eastern Philosophy Professor Intake/History Entered On: 05/04/2010 10:44 CDT Performed [...] CHANTELL UMANA; Reviewed Date: 04/21/201015:33 CDT Source: [employer] Document Id: [id number] CDT!16 documented in this encounter Plan of Treatment Not on filedocumented as of this encounter Visit Diagnoses Not on filedocumented in this encounter
[2022-04-08 18:30] LABS: HCG Quantitative* < 2.39 mIU/mL
== END 2022-04-08 12:41 | disposition home or self-care (01) ==
PROVIDERS: PCP Family Medicine; Visit Provider Advanced Practice Midwife
DX: O26.20 Pregnancy care for patient with recurrent pregnancy loss, unspecified trimester (principal)
CPT/HCPCS: 84702

== ENCOUNTER 2022-05-14 18:25 | Outpatient (CLI) | payer OTHER, MEDICAID, SELFPAY ==
--- OUTSIDE RECORDS SUMMARY | 2022-05-14 18:44 | XMS_ITS | Encounter Summary ---
:2000 Author Organization [facility] Address [address] [place] [address] Care Team Providers Name Role Phone Unavailable [...] (129 lb 10.1 oz) 08/19/2016 6:27 PM EPITAXIAL REACTOR OPERATOR Height - - Body Mass Index - - documented in this encounter Progress Notes Ne Grissom - 08/19/2016 5:51 PM CST [id number] CHIEF COMPLAINT/REASON FOR VISIT Abdominal pain. HISTORY [...] concerns or complaints. MEDICATIONS Please see today's [facility] EMR dated 08/19/2016. No changes. ALLERGIES Please see today's [facility] EMR dated 08/19/2016. No changes. VITAL SIGNS Please see today's [facility] EMR dated 08/19/2016. No changes. PHYSICAL EXAMINATION [...] GRISSOM NP On: 08/22/2016 09:03 AM Source: [facility] SANDRITASDOLBEYNZABRINA Document Id: [id number] AXIAL REACTOR OPERATOR documented in this encounter Miscellaneous Notes Miscellaneous - Yasmani Cole M.D. - 08/20/2016 7:29 AM CST Custom Result Letter August 20, 2016 AMAIRANI MARTINEZ [address] [facility] [id number] Dear AMAIRANI MARTINEZ, I am pleased to report that your results from the following diagnostic test(s) are benign. If you have questions or concerns, please do not hesitate to call our office. Result Name Current Result XR Abdomen 2 Views 08/19/2016 Sincerely, YASMANI COLE [address] [place] [id number] Electronic Signature Electronically Signed By: YASMANI COLE MD On: August 20, 2016 This document has images extracted. Source: [facility] POWERCHART Document Id: [id number] Electronically signed by Anastasia [facility] Division[facility] Carpet Loom Fixer [id number] at 01/17/2017 9:47 PM CDT Miscellaneous - Solomon Hanson L.P.N. - 08/19/2016 6:27 PM CST Pediatric Hot Pipe Gauger Intake/History Pediatric Hot Pipe Gauger Intake/History Entered On: 08/19/2016 18:30 EPITAXIAL REACTOR OPERATOR Performed On: 08/19/2016 18:27 EPITAXIAL REACTOR OPERATOR by SOLOMON HANSON LPN Intake Chief Complaint [...] kg SOLOMON HANSON LPN - 08/19/2016 18:27 EPITAXIAL REACTOR OPERATOR General Info Information Given By : Patient, Mother Preferred Communication Mode : Verbal Languages : German Is Patient Female and 13-50 no hysterectomy : Yes Status : Patient denies Are you ? : No SOLOMON HANSON LPN - 08/19/2016 18:27 EPITAXIAL REACTOR OPERATOR Subjective Pain Symptoms : Yes SOLOMON HANSON LPN - 08/19/2016 18:27 EPITAXIAL REACTOR OPERATOR Pain Scale Pain Scale Verbal 0-10 : Open SOLOMON HANSON LPN - 08/19/2016 18:27 EPITAXIAL REACTOR OPERATOR Pain Pain Assessment Grid Pain 1 Location : Abdomen SOLOMON HANSON LPN - 08/19/2016 18:27 EPITAXIAL REACTOR OPERATOR Dependent Habits Exposure to Tobacco Smoke : Care provider denies smoking in home Smoking Status : Never smoker Tobacco 2A : No Tobacco Use/Currently Using : No Tobacco Use/Last 30 Days : No Tobacco Use/Last 12 months : No SOLOMON HANSON LPN - 08/19/2016 18:27 EPITAXIAL REACTOR OPERATOR Source: [facility] POWERCHART Document Id: [id number] EPITAXIAL REACTOR OPERATOR!36 AXIAL REACTOR OPERATOR documented in this encounter Plan of Treatment Not on filedocumented as of this encounter Procedures Procedure Name Priority Date/Time Associated Diagnosis Comme nts DX ABDOMEN SUPINE Routine 08/19/2016 7:13 PM Resu lts for this WITH UPRIGHT OR EPITAXIAL REACTOR OPERATOR procedure ar e in DECUBITUS 2 VIEWS the result s section. documented in this encounter Results DX Abdomen Supine with Upright or Decubitus 2 Views (08/19/2016 7:13 PM EPITAXIAL REACTOR OPERATOR) Anatomical Region Laterality Modality Abdomen Right Radiographic Imaging Specimen (Source) Anatomical Collection Method Collection Time Re ceived Time Location / / Volume Laterality 08/19/2016 7:13 PM EPITAXIAL REACTOR OPERATOR Addenda Addendum by Provider, Bob Taylor 08/19/2016 7:13 PM EPITAXIAL REACTOR OPERATOR RAD^^^OW XR Abdomen 2 Views 08/19/2016 19:13:46 Impressions 08/20/2016 7:08 AM EPITAXIAL REACTOR OPERATOR 1. ??No acute findings. Please see above dictation. Narrative 08/20/2016 7:08 AM EPITAXIAL REACTOR OPERATOR EXAM: ??XR Abdomen 2 Views. DEMOGRAPHICS: ??15 [...]
--- OUTSIDE RECORDS SUMMARY | 2022-05-14 18:44 | XMS_ITS | Encounter Summary ---
:2000 Author Organization [facility] Address [address] [place] [address] Care Team Providers Name Role Phone Mary Farr M.D. Primary Care Provider Encounter Details Date Type Department Care Team Description 09/04/2014 Historical Ophthalmology [facility] O[facility] Gentry Russell M.D. [address] [place], [place] [phone] (Wo rk) 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 [...] both eyes. CDM Reports - EYEGEN Id: [id number] Status: Fnl documented in this encounter Plan of Treatment Not on filedocumented as of this encounter Visit Diagnoses Not on filedocumented in this encounter Additional Health Concerns Assessment Noted Time PHQ-9 Depression Total Score: 1 04/22/2014 12:46 PM CD T documented as of this encounter Care Teams Meal Room Hand Relationship Specialty Start Date End Date Mary Farr M.D. PCP - General 01/20/17 02/03/17 documented as of this encounter
--- OUTSIDE RECORDS SUMMARY | 2022-05-14 18:44 | XMS_ITS | Encounter Summary ---
:2000 Author Organization [facility] Address [address] [place] [address] Care Team Providers Name Role Phone Elsewhere, Pcp Primary Care Provider Unavailable Encounter Details Date Type Department Care Team Description 12/18/2020 Admin Visit Department of Family Medicine, [address] [address] [facility] [phone] 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 Tobacco Use Types Packs/Day Years [...] documented as of this encounter Care Teams Helicopter Pilot Relationship Specialty Start Date End Date Elsewhere, Pcp PCP - General 03/07/20 documented as of this encounter
--- OUTSIDE RECORDS SUMMARY | 2022-05-14 18:44 | XMS_ITS | Encounter Summary ---
:2000 Author Organization [facility] Address [address] [place] [address] Care Team Providers Name Role Phone Unavailable Primary Care Provider Unavailable Encounter Details Date Type Department Care Team Description 11/11/2014 Hospital Encounter HX [facility] FAMILYPRA Vincenzo Ware P.A.-C. [address] [place] [phone] (Wo rk) 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 Tobacco Use [...] Years) documented in this encounter H&P Notes Kyel Ware P.A.-C. - 11/11/2014 3:13 PM CDT [id number] CHIEF COMPLAINT/REASON FOR VISIT Sports history and [...] WARE PA-C On: 11/13/2014 10:23 AM Source: [facility] MHSDOLBEYNONRADSYS Document Id: [id number] documented in this encounter Miscellaneous Notes Miscellaneous - Kyle Ware P.A.-C. - 11/11/2014 5:17 PM CDT Ambulatory Patient Summary [address] [id number] Visit Information Name: AMAIRANI MARTINEZ [facility] Number: [id number] Current Date: 11/11/2014 [...] appointment detail needed. Your Goals/Additional instructions: Source: [facility] POWERCHART Document Id: [id number] Miscellaneous - Kyle Ware P.A.-C. - 11/11/2014 5:17 PM CDT Ambulatory Discharge Medication List [address] [id number] Visit Information Name: AMAIRANI MARTINEZ [facility] Number: [id number] Visit Date: 11/11/2014 [...] PA-C Signed On:11-NOV-2014 17:17:04 Additional Information: Source: [facility] POWERCHART Document Id: [id number] Miscellaneous - Flores Ngo L.P.N. - 11/11/2014 3:34 PM CDT Pediatric Senior Director Of Strategy Intake/History Pediatric Senior Director Of Strategy Intake/History Entered On: 11/11/2014 15:39 CDT Performed [...] Given By : Patient, Mother Languages : Kyrgyz Is Patient Female and 13-50 no hysterectomy [...] FLORES NGO - 11/11/2014 15:34 CDT Source: [facility] Hotel [employer] Document Id: [id number] CDT!32 documented in this encounter Plan of Treatment Not on filedocumented as of this encounter Visit Diagnoses Not on filedocumented in this encounter Additional Health Concerns Assessment Noted Time PHQ-9 Depression Total Score: 1 04/22/2014 12:46 PM CD T documented as of this encounter
--- OUTSIDE RECORDS SUMMARY | 2022-05-14 18:44 | XMS_ITS | Encounter Summary ---
:2000 Author Organization [facility] Address [address] [place] [address] Care Team Providers Name Role Phone Mary Farr M.D. Primary Care Provider Encounter Details Date Type Department Care Team Description 09/23/2014 Historical Ophthalmology [facility] O[facility] Gentry Russell M.D. [address] [place], [place] [phone] (Wo rk) 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 [...] Plan: Trial contacts. F/u one week. jayne [facility] Reports - EYECL Id: [id number] Status: Fnl Electronically signed by Anastasia [facility] Ophthalmology Notes [id number] at 01/26/2017 12:28 PM CDT documented in this encounter Plan of Treatment Not on filedocumented as of this encounter Visit Diagnoses Not on filedocumented in this encounter Additional Health Concerns Assessment Noted Time PHQ-9 Depression Total Score: 1 04/22/2014 12:46 PM CD T documented as of this encounter Care Teams Facilities Operator Relationship Specialty Start Date End Date Mary Farr M.D. PCP - General 01/20/17 02/03/17 documented as of this encounter
--- OUTSIDE RECORDS SUMMARY | 2022-05-14 18:44 | XMS_ITS | Encounter Summary ---
:2000 Author Organization [facility] Address [address] [place] [address] Care Team Providers Name Role Phone Unavailable Primary Care Provider Unavailable Encounter Details Date Type Department Care Team Description 06/15/2016 Hospital Encounter HX [facility] FAMILYPRA Kecia Garcia APRN, C.N.P. [address], [place] [phone] (Wo rk) 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 [...] (132 lb 2.7 oz) 06/15/2016 3:14 PM PLASTICS FITTER Height 162 cm (5' 3.78) 06/15/2016 3:14 PM PLASTICS FITTER Body Mass Index 22.84 06/15/2016 3:14 PM PLASTICS FITTER Body Mass Index Percentile 75.63 % 06/15/2016 [...] APRN, CNP On: 06/15/2016 03:53 PM Source: [facility] POWERCHART Document Id: [id number] TICS FITTER documented in this encounter Nursing Notes Kecia [...] ?? Muffled voice ?? New rash ?? [phone] Alyssa [facility], [address] [place] [address], [place] [address]. All rights reserved. This information is not intended as a substitute for professional medical care. Always follow your healthcare professional's instructions. This document has images extracted. Please consider using [employer] for all your patient education needs. Source: [facility] POWERCHART Document Id: [id number] TICS FITTER documented in this encounter Miscellaneous Notes Miscellaneous - Kecia Garcia APRN, C.N.P. - 06/15/2016 3:52 PM CST Ambulatory Discharge Medication List [address] [id number] Visit Information Name: AMAIRANI NAQVI [facility] Number: [id number] Current Date: 06/15/2016 15:52:51 Attending Provider: KECIA GARCIA APRN [facility] Primary Care Provider: SHAYY HERNANDEZ MD [...] CNP Signed On:15-JUN-2016 15:52:43 Additional Information: Source: [facility] POWERCHART Document Id: [id number] TICS FITTER Miscellaneous - Kecia Garcia APRN, C.N.P. - 06/15/2016 3:52 PM CST Ambulatory Patient Summary [address] [id number] Visit Information Name: AMAIRANI NAQVI [facility] Number: [id number] Current Date: 06/15/2016 15:52:52 [...] are not improving over the next week. [email or web address] Prompt Medical Attention if any of the [...] ?? Muffled voice ?? New rash ?? [phone] Alyssa Hammond, [address] [place] [address], [place] [address]. All rights reserved. This information is not [...] if you dont have one. Go to [email or web address] and click on Create Your Account. Then, follow the directions to complete the online form. Youll be asked for your [facility] number which you can find at the top of this document. Your Goals/Additional instructions: This document has images extracted. Please consider using [employer] for all your patient education needs. Source: [facility] POWERCHART Document Id: [id number] TICS FITTER Miscellaneous - Ara Lange L.P.NRodney - 06/15/2016 3:14 PM CST Pediatric Shared Services And Outsourcing Manager Intake/History Pediatric Shared Services And Outsourcing Manager Intake/History Entered On: 06/15/2016 15:16 PLASTICS FITTER Performed On: 06/15/2016 15:14 PLASTICS FITTER by ARA LANGE LPN Intake Chief Complaint [...] kg/m2 ARA LANGE MOIZ - 06/15/2016 15:14 PLASTICS FITTER General Info Present in Room During Exam/Procedure : Mother Information Given By : Patient, Mother Preferred Communication Mode : Verbal Languages : Croatian Is Patient Female and 13-50 no hysterectomy : Yes Status : Patient denies Are you ? : No ARA LANGE MOIZ - 06/15/2016 15:14 PLASTICS FITTER Subjective Pain Symptoms : Yes ARA LANGE MOIZ - 06/15/2016 15:14 PLASTICS FITTER Pain Scale Pain Scale Verbal 0-10 : Open ARA LANGE MOIZ - 06/15/2016 15:14 PLASTICS FITTER Pain Pain Assessment Grid Pain 1 Location : Throat Intensity : 7 Time Pattern : Intermittent ARA LANGE MOIZ - 06/15/2016 15:14 PLASTICS FITTER Dependent Habits Exposure to Tobacco Smoke : Care provider denies smoking in home Smoking Status : Never smoker Tobacco 2A : No Tobacco Use/Currently Using : No Tobacco Use/Last 30 Days : No Tobacco Use/Last 12 months : No ARA LANGE MOIZ - 06/15/2016 15:14 PLASTICS FITTER Source: [facility] POWERCHART Document Id: [id number] PLASTICS FITTER!45 TICS FITTER documented in this encounter Plan of Treatment Not on filedocumented as of this encounter Procedures Procedure Name Priority Date/Time Associated Diagnosis Comme nts RAPID STREP A Routine 06/15/2016 3:51 PM Results for this SCREEN PLASTICS FITTER procedure are i n the results section. RAPID STREP A Routine 06/15/2016 3:51 PM Results for this SCREEN PLASTICS FITTER procedure are i n the results section. documented in this encounter Results Rapid Strep A Screen (06/15/2016 3:51 PM PLASTICS FITTER) [facility] Method Time Signature HXRapid Strep POWERCHART Confirmation HXPre Negative for POWERCHART Group A Strep by culture. HXFinal Negative for POWERCHART Group A Strep by culture. Specimen Anatomical Collection Method Collection Time Receive d Time (Source) Location / / Volume Laterality Throat 06/15/2016 3:51 PM 6 3:51 PLASTICS FITTER PM PLASTICS FITTER Kecia J Myrom OVERHEAD CRANE OPERATOR, C.N.P. LAB MICROBIOLOGY - GENERAL ORDERABLES Performing Organization Address City/State/ZIP Code Phon e Number POWERCHART Rapid Strep A Screen (06/15/2016 3:51 PM PLASTICS FITTER) [facility] Method Time Signature HXStrep A POWERCHART Screen Rapid HXFinal Negative for POWERCHART Strep Group A by rapid screen. HXFinal Culture POWERCHART confirmation to follow. Specimen (Source) Anatomical Collection Method Collection Time Re ceived Time Location / / Volume Laterality Throat 06/15/2016 3:51 PM PLASTICS FITTER Kecia Garcia APRN, C.N.P. LAB MICROBIOLOGY - GENERAL ORDERABLES Performing Organization Address City/State/[facility] Code Phon e Number POWERCHART documented in this encounter Visit Diagnoses Not on filedocumented in this encounter Additional Health Concerns Assessment Noted Time PHQ-9 Depression Total Score: 1 04/22/2014 12:46 PM CD T documented as of this encounter
--- OUTSIDE RECORDS SUMMARY | 2022-05-14 18:44 | XMS_ITS | Encounter Summary ---
:2000 Author Organization [facility] Address [address] [place] [address] Care Team Providers Name Role Phone Unavailable Primary Care Provider Unavailable Encounter Details Date Type Department Care Team Description 09/15/2016 Hospital Encounter HX NO MAPPING Mireya Baugh M.D. [address] [place], [place] [phone] (Wo rk) 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 Tobacco Use Types Packs/Day Years Used Date Smoking Tobacco: Never Sex Assigned at Date Recorded Not on file documented as of this encounter Miscellaneous Notes Miscellaneous - Anastasia, Claudia Provider Ser - 09/15/2016 11:59 PM HERBICIDE SERVICE SALES REPRESENTATIVE Coding Summary-Paper Based CODING DATE: 09/27/2016 FINAL [facility] STATUS: * Discharged to Home or Self Care [facility]: REASON FOR VISIT [...] MARINO Date Saved: 09/27/2016 10:22 am Source: [employer] Document Id: [id number] documented in this encounter Plan of Treatment Not on filedocumented as of this encounter Visit Diagnoses Not on filedocumented in this encounter Additional Health Concerns Assessment Noted Time PHQ-9 Depression Total Score: 1 04/22/2014 12:46 PM CD T documented as of this encounter
--- OUTSIDE RECORDS SUMMARY | 2022-05-14 18:44 | XMS_ITS | Encounter Summary ---
:2000 Author Organization [facility] Address [address] [place] [address] Care Team Providers Name Role Phone Elsewhere, Pcp Primary Care Provider Unavailable Reason for Visit Reason Onset Date Comments Outpatient COVID-19 Testing 12/17/2020 Encounter Details Date Type Department Care Team Description 12/17/2020 External Outreach Department of Family Ancelmo Juan Contact With And MedicineRick D.O. (Suspected) Exposure Building, in [address]-19 ([place], [place] Dx) [address] [facility] [address] [place], [place] [phone] [address] (Work) [phone] 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 Tobacco Use Types Packs/Day Years [...] RNA, V Asymptomatic (12/18/2020 10:44 AM CDT) [facility] Method Time Signature SARS-CoV-2 Swab, 12/19/2020 [...] pe rformed using the Aptima SARS-CoV-2 assay ([employer] on the [employer] tem under emergency use authorization (EUA) by the U.S. Food and Drug Administ ration. Fact sheets for this EUA assay can be fo und at the following links: For Healthcare Providers: https://www.Plugaround a.gov/media/161956/download For Patients: https://www.fda.gov/media/ 026531/download Specimen Anatomical Collection Method Collection Time Receive d Time (Source) Location / / Volume Laterality Varies 12/18/2020 10:44 12/18/2020 3:01 (Nasopharynx) AM CDT PM CDT Juan Ag D.O. LAB MICROBIOLOGY - GENERAL O GAVIOTAERAGENEVA Performing Organization Address City/State/ZIP Code Phon e Number [facility]- [address] [place] [address] [place] [address] [address] documented in this encounter Visit Diagnoses Diagnosis Contact With And (Suspected) Exposure To COVID-19 - Primary documented in this encounter Additional Health Concerns Infection Onset Date Last Indicated Resolved Time COVID19 Pending 12/17/2020 12/18/2020 12/19/2020 12:13 AM CDT documented as of this encounter Care Teams Warp Dyeing Vat Tender Relationship Specialty Start Date End Date Elsewhere, Pcp PCP - General 03/07/20 documented as of this encounter
--- OUTSIDE RECORDS SUMMARY | 2022-05-14 18:44 | XMS_ITS | Encounter Summary ---
:2000 Author Organization [facility] Address [address] [place] [address] Care Team Providers Name Role Phone Mary Farr M.D. Primary Care Provider Encounter Details Date Type Department Care Team Description 01/28/2017 Hospital Encounter HX [facility] LAB Mer Encarnacion A PRN, C.N.P. [address] [place], [place] [phone] (Wo rk) 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 Tobacco Use Types Packs/Day Years Used Date Smoking Tobacco: Never Sex Assigned at Date Recorded Not on file documented as of this encounter Nursing Notes Melissa Carlton L.P.N. - 01/31/2017 3:06 PM CDT lab results 01/31/17 Results card sent, per Dr. Diallo. Electronically Signed By: MELISSA CARLTON LPN On: 01/31/2017 03:07 PM Source: [facility] POWERCHART Document Id: [id number] documented in this encounter Plan of Treatment [...] Component Value Ref [facility] Method Time Signature HXChlamydia by POWERCHART [...] Component Value Ref Test Analysis Performed At [facility] Method Time Signature HX GC by [...] on filedocumented in this encounter Care Teams Coordinator Of Genetic Services Relationship Specialty Start Date End Date Mary Farr M.D. PCP - General 01/20/17 02/03/17 documented as of this encounter
--- OUTSIDE RECORDS SUMMARY | 2022-05-14 18:44 | XMS_ITS | Encounter Summary ---
:2000 Author Organization [facility] Address [address] [place] [address] Care Team Providers Name Role Phone Unavailable Primary Care Provider Unavailable Encounter Details Date Type Department Care Team Description 09/23/2014 Hospital Encounter HX [facility] Tha Mccrary M.D. [address] [place] [phone] (Wo rk) 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 Tobacco Use Types Packs/Day Years Used Date Smoking Tobacco: Never Assessed Sex Assigned at Date Recorded Not on file documented as of this encounter Miscellaneous Notes Miscellaneous - Gentry Cruz M.D. - 09/23/2014 9:47 AM CST Ambulatory Patient Summary [facility] [address] [place] [id number] Visit Information Name: AMAIRANI MARTINEZ [facility] Number: [id number] Current Date: 09/23/2014 09:47:59 Physicians [...] appointment detail needed. Your Goals/Additional instructions: Source: [facility] [email or web address] Document Id: [id number] VERY CREW WORKER Miscellaneous - Gentry Cruz M.D. - 09/23/2014 9:47 AM CST Ambulatory Discharge Medication List [address] [id number] Visit Information Name: AMAIRANI MARTINEZ [facility] Number: [id number] Visit Date: 09/23/2014 09:47:58 Attending [...] MD Signed On:23-SEP-2014 09:47:56 Additional Information: Source: [facility] POWERCHART Document Id: [id number] VERY CREW WORKER documented in this encounter Plan of Treatment Not on filedocumented as of this encounter Visit Diagnoses Not on filedocumented in this encounter Additional Health Concerns Assessment Noted Time PHQ-9 Depression Total Score: 1 04/22/2014 12:46 PM CD T documented as of this encounter
--- OUTSIDE RECORDS SUMMARY | 2022-05-14 18:44 | XMS_ITS | Encounter Summary ---
:2000 Author Organization [facility] Address [address] [place] [address] Care Team Providers Name Role Phone Unavailable Primary Care Provider Unavailable Encounter Details Date Type Department Care Team Description 11/16/2016 Hospital Encounter HX [facility]RGENTCAR Jef Bonilla M.D. [address] [place] [phone] ( effie) 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 Tobacco [...] Bonilla M.D. - 11/16/2016 3:40 PM CDT [id number] Patient presents initially with her mom and [...] out whether she should see a thoracic contract law specialist or a chest surgeon. With the [...] BONILLA MD On: 11/18/2016 04:34 PM Source: [facility] MHSDOLBEYNONRADSYS Document Id: [id number] documented in this encounter Miscellaneous Notes Miscellaneous - Amelie Christie, LRodneyP.N. - 11/18/2016 4:02 PM CDT *General Message From: AMELIE CHRISTIE LPN ( Pediatric Nurse) Sent: 11/18/2016 16:02:57 CDT Subject: *General Message referral submitted to [facility], and to 's insurance Source: [facility] POWERCHART Document Id: [id number] Miscellaneous - Caballero, Lesley S, L.P.N. - 11/16/2016 3:58 PM CDT Pediatric Staff Pharmacist Hospital Intake/History Pediatric Staff Pharmacist Hospital Intake/History Entered On: 11/16/2016 16:00 CDT Performed On: 11/16/2016 15:58 CDT by LESLEY CABALLERO MEMOR[facility] DESIGNER Intake Peripheral Pulse Rate : 77 /min [...] 11/16/2016 15:58 CDT General Info Languages : Yemeni Is Patient Female and 13-50 no hysterectomy [...] CABALLERO LPN - 11/16/2016 15:58 CDT Source: [facility] POWERCHART Document Id: [id number] CDT!34 documented in this encounter Plan of [...]
--- OUTSIDE RECORDS SUMMARY | 2022-05-14 18:44 | XMS_ITS | Encounter Summary ---
:2000 Author Organization [facility] Address [address] [place] [address] Care Team Providers Name Role Phone Unavailable Primary Care Provider Unavailable Encounter Details Date Type Department Care Team Description 07/23/2016 Hospital Encounter HX [facility]BCV FAMILYPRA Marley Solorzano M.D. [address] [place], [place] [phone] (Wo rk) 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 [...] (127 lb 10.3 oz) 07/23/2016 3:13 PM CRATE LINER Height 161.5 cm (5' 3.58) 07/23/2016 3:13 PM CRATE LINER Body Mass Index 22.2 07/23/2016 3:13 PM CRATE LINER Body Mass Index Percentile 70.10 % 07/23/2016 3:13 PM CS T Growth Chart: CDC (Girls, 2-20 Years) documented in this encounter Progress Notes Marley Hendricks M.D. - 07/23/2016 2:45 PM CST [id number] CHIEF COMPLAINT/ REASON FOR VISIT Dysuria. HISTORY [...] behalf by Shayy Tipton, a trained medical oncologist. The creation of this record is based on the scribe's personal observations and the provider's statements to them. This document has been thomas cked and approved by the attending provider. Marley Roberson M.D./niko Electronically Signed By: MARLEY HENDRICKS MD On: 08/07/2016 08:26 PM Source: [facility] MHSDOLBEYNONRADSYS Document Id: [id number] E LINER documented in this encounter Miscellaneous Notes Miscellaneous - Marley Hendricks M.D. - 07/28/2016 9:10 AM CRATE LINER Custom Result Letter July 28, 2016 AMAIRANI MARTINEZ [facility] [id number] Dear AMAIRANI MARTINEZ, Chlamydia test is negative Result Name Current Result Chlamydia DNA Probe Review 07/23/2016 GC by Nucleic Acid Amplification 07/23/2016 Sincerely, MARLEY ROBERSON [address] [place] [address] Electronic Signature Electronically Signed By: MARLEY HENDRICKS MD On: July 28, 2016 This document has images extracted. Source: [facility] POWERCHART Document Id: [id number] Miscellaneous - Marley Hendricks M.D. - 07/23/2016 7:46 PM CRATE LINER Ambulatory Patient Summary [address] [id number] Visit Information Name: AMAIRANI MARTINEZ [facility] Number: [id number] Current Date: 07/23/2016 19:46:28 Physicians [...] day x 7 day(s) New Routed to [address] [address] sulfamethoxazole-trimethoprim (Bactrim DS 800 mg-160 mg oral tablet) 1 Tablet(s), Oral, two times a day x 5 day(s) New Routed to [address] [address] Stop Taking the Following Medications: [...] if you dont have one. Go to [email or web address] and click on Create Your Account. Then, follow the directions to complete the online form. Youll be asked for your [facility] number which you can find at the top of this document. Your Goals/Additional instructions: Source: [facility] POWERCHART Document Id: [id number] E LINER Miscellaneous - Marley Hendricks M.D. - 07/23/2016 7:46 PM CRATE [facility]ER Ambulatory Discharge Medication List [address] [id number] Visit Information Name: DONYA AMAIRANICHESTER MOBLEY [facility] Number: [id number] Current Date: 07/23/2016 19:46:27 Attending [...] New Routed to [facility] [address] [place] [address] sulfamethoxazole-trimethoprim (Bactrim DS 800 mg-160 mg oral tablet) 1 Tablet(s), Oral, two times a day x 5 day(s) New Routed to [facility] [address] [place] [address] Stop Taking the Following Medications: [...] MD Signed On:23-JUL-2016 19:46:15 Additional Information: [facility] Document Id: [id number] E LINER Miscellaneous - Marley Hendricks M.D. - 07/23/2016 7:42 PM CRATE [facility]ER Addendum by RUBIO SYLVESTER CMA on July 26, 2016 10:46:32 [facility]ER Spoke with: ( _ ) Patient ( [...] language for Healthcare discussion: _ Was an full time staff interpreter used for this call? _ Other ( --_ ) From: MARLEY HENDRICKS MD To: FADI Gaona Nurse; Sent: 07/23/2016 19:42:24 CRATE LINER Please notify Amairani that she has a vaginal infection. I sent rx for metronidazole to the pharmacy.One pill twice daily for seven days. No alcohol. Source: [facility] POWERCHART Document Id: [id number] Miscellaneous - Araceli Troy L.P.N. - 07/23/2016 3:13 PM CST Pediatric Limb Driver Intake/History Pediatric Limb Driver Intake/History Entered On: 07/23/2016 15:35 CRATE LINER Performed On: 07/23/2016 15:13 [facility]ATE [facility]ER by ARACELI TROY HYDRATOR OPERATOR Intake Chief Complaint : burning with urination [...] Mass Index : 22.2 kg/m2 ARACELI TROY HYDRATOR OPERATOR - 07/23/2016 15:13 CRATE LINER General Info Mode of Arrival : Ambulatory Present in Room During Exam/Procedure : Alone Information Given By : Patient Languages : Georgian Is Patient Female and 13-50 no hysterectomy : Yes Status : Patient denies Are you ? : No ARACLEI TROY LPN - 07/23/2016 15:13 [facility] Subjective Pain Symptoms : No ARACELI TROY LPN - 07/23/2016 15:13 CRATE LINER Dependent Habits Exposure to Tobacco Smoke : Care provider denies smoking in home Smoking Status : Never smoker Tobacco 2A : No Tobacco Use/Currently Using : No Tobacco Use/Last 30 Days : No Tobacco Use/Last 12 months : No ARACELI TROY LPN - 07/23/2016 15:13 CRATE LINER Source: [facility] POWERCHART Document Id: [id number] CRATE LINER!36 E LINER documented in this encounter Plan of Treatment Not on filedocumented as of this encounter Procedures Procedure Name Priority Date/Time Associated Comments Diagnosis URINALYSIS WITH Routine 07/23/2016 4:10 PM Result s for this MICROSCOPIC [facility]ER procedure are i n the results section. BACTERIAL CULTURE, Routine 07/23/2016 4:10 PM Res ults for this AEROBIC, URINE [facility]ER procedure are in the results section. TEST, U Routine 07/23/2016 4:10 PM Resu lts for this [facility]ER procedure are i n the results section. VAGINITIS BATTERY, Routine 07/23/2016 3:54 PM Res ults for this DNA (GENITAL) [facility] procedure are in the results section. CHLAMYDIA/GONORRHOEAE Routine 07/23/2016 3:54 PM Results for this AMPLIFIED RNA [facility]ER procedure are in the results section. CHLAMYDIA TRACHOMATIS Routine 07/23/2016 3:54 PM Results for this AMPLIFIED RNA [facility] procedure are in the results section. documented in this encounter Results (ABNORMAL) Urinalysis, Complete, Includes Microscopic (07/23/2016 4:10 PM CRATE LINER) [facility] Method Time Signature Clarity Cloudy (A) Clear POWERCHART HXUr Color Yellow Colorless POWERCHART Specific 1.020 POWERCHART [place], POCT, U Comment: Reference Range Specific [place]: 1.000-1.035 pH, POCT, Urine 7.5 <5.0 POWERCHART [...] Laterality Urine, First 07/23/2016 4:10 PM Voided [facility]ATE [facility]ER Marley Baugh M.D. LAB URINE ORDERABLES Performing Organization Address City/State/ZIP Code Phon e Number POWERCHART (ABNORMAL) Bacterial Culture, Aerobic, Urine (07/23/2016 4:10 PM CRATE LINER) Analysis Performed At Patho logist Time Signature Bacterial SA <=0.5 POWERCHART Culture, (POSITIVE) Aerobic, Urine HXPre [facility] POWERCHART Comment: >100,000 cfu/mL Gram Positive Cocci Presumptive Staphylococcus aureus HXFinal SA POWERCHART Comment: >100,000 cfu/mL Staphylococcus aureus Specimen (Source) Anatomical Collection Method Collection Time Re ceived Time Location / / Volume Laterality Urine, First 07/23/2016 4:10 PM Voided [facility]ER Organism Antibiotic Method Susceptibility Staphylococcus aureus Ciprofloxacin [...] POWERCHART Test, Qualitative, Urine (07/23/2016 4:10 PM CRATE LINER) [facility] Method Time Signature HXBeta-hCG Negative POWERCHART Qualitative Urine Specimen Anatomical Collection Method Collection Time Receive d Time (Source) Location / / Volume Laterality Urine 07/23/2016 4:10 PM 6 4:28 CRATE LINER PM [facility]ER Marley Baugh M.D. LAB URINE ORDERABLES Performing Organization Address City/[facility] Code Phon e Number POWERCHART Chlamydia / Gonorrhoeae Amplified RNA (07/23/2016 3:54 PM CRATE LINER) Component Value Ref Test Analysis Performed At [facility] [employer] Range Method Time Signature HX GC by Nucleic POWERCHART Acid Amplification HXFinal Negative for POWERCHART Neisseria gonorrhea by RNA amplification . HXFinal Reference: POWERCHART Negative HXFinal If you POWERCHART submitted a female urine sample, please note it is a Laboratory Developed Test. Specimen (Source) Anatomical Collection Method Collection Time Re ceived Time Location / / Volume Laterality Vagina 07/23/2016 3:54 PM [facility]ATE LINER Marley Baugh M.D. LAB MICROBIOLOGY - GEN ERAL ORDERABLES Performing Organization Address City/[facility]/ZIP Code Phon e Number POWERCHART Chlamydia Trachomatis Amplified RNA (07/23/2016 3:54 PM CRATE LINER) Component Value Ref Test Analysis Performed At [facility] Method Time Signature HXChlamydia by POWERCHART Nucleic Acid Amplification HXFinal Negative for POWERCHART Chlamydia trachomatis by RNA amplification. HXFinal Reference: POWERCHART Negative HXFinal If you POWERCHART submitted a female urine sample, please note it is a Laboratory Developed Test. Specimen (Source) Anatomical Collection Method Collection Time Re ceived Time Location / / Volume Laterality Vagina 07/23/2016 3:54 PM [facility]ATE LINER Marley Baugh M.D. LAB MICROBIOLOGY - GEN ERAL ORDERABLES Performing Organization Address City/State/ZIP Code Phon e Number POWERCHART (ABNORMAL) VAGINITIS BATTERY, DNA (GENITAL) (07/23/2016 3:54 PM CRATE LINER) Component Value Ref Test Analysis Performed At [facility] [employer] Range Method Time Signature HXVaginitis (POSITIVE) POWERCHART Battery, DNA (Genital) HXFinal Trichomonas POWERCHART vaginalis DNA negative HXFinal Gardnerella POWERCHART vaginalis DNA positive HXFinal Paige species POWERCHART DNA negative HXFinal Reference: POWERCHART Negative Specimen (Source) Anatomical Collection Method Collection Time Re ceived Time Location / / Volume Laterality Vagina 07/23/2016 3:54 PM CRATE LINER Marley Baugh M.D. LAB HISTORICAL ORDERS Performing Organization Address City/State/ZIP Code Phon e Number POWERCHART documented in this encounter Visit Diagnoses Not on filedocumented in this encounter Additional Health Concerns Assessment Noted Time PHQ-9 Depression Total Score: 1 04/22/2014 12:46 PM CD T documented as of this encounter
--- OUTSIDE RECORDS SUMMARY | 2022-05-14 18:44 | XMS_ITS | Encounter Summary ---
:2000 Author Organization [facility] Address [address] [place] [address] Care Team Providers Name Role Phone Alysha Mer Alba APRN C.N.PRodney Primary Care Provider [phone] Encounter Details Date Type Department Care Team Description 03/03/2017 Hospital Encounter HX NO MAPPING Arturo Collins, P.ARodney-CRodney [address] [facility] [address] [place], [place] [phone] (Wo rk) 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 Tobacco Use Types Packs/Day Years Used Date Smoking Tobacco: Never Sex Assigned at Date Recorded Not on file documented as of this encounter Miscellaneous Notes Miscellaneous - Conversion, Historical Provider Ser - 03/03/2017 11:59 PM CDT Coding Summary-Paper Based CODING DATE: 03/14/2017 FINAL [facility] STATUS: * Discharged to Home or Self Care [facility] DX: REASON FOR VISIT DX: FINAL DX: PRINCIPAL: R30.0 Dysuria SECONDARY: PROCEDURES DOCTOR NAME DATE NOTE: The code number assigned matches the documented diagnosis and / or procedure in the patient's chart. However, the narrative phrase printed from the coding software may appear abbreviated, or result in slightly different terminology. Coded By: NIKHIL MARINO Date Saved: 03/14/2017 09:42 am Source: [facility] NETWORK[facility]uppet Document Id: [id number] documented in this encounter Plan of Treatment Not on filedocumented as of this encounter Visit Diagnoses Not on filedocumented in this encounter Care Teams Oil Burner Mechanic Relationship Specialty Start Date End Date Mer Encarnacion, DUSTY, C.N.P. PCP - General 02/04/17 03/06/[address] [phone] documented as of this encounter
--- OUTSIDE RECORDS SUMMARY | 2022-05-14 18:44 | XMS_ITS | Encounter Summary ---
:2000 Author Organization [facility] Address [address] [place] [address] Care Team Providers Name Role Phone Elsewhere, Pcp Primary Care Provider Unavailable Encounter Details Date Type Department Care Team Description 06/15/2020 Admin Visit Department of Family Medicine, [address] [address] [facility] [place] [phone] 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 Tobacco Use Types Packs/Day Years Used Date Smoking Tobacco: Never Sex Assigned at Date Recorded Not on file documented as of this encounter Plan of Treatment Not on filedocumented as of this encounter Visit Diagnoses Not on filedocumented in this encounter Additional Health Concerns Infection Onset Date Last Indicated Resolved Time COVID19 Pending 06/15/2020 06/15/2020 06/16/2020 2:04 PM BAND DIRECTOR documented as of this encounter Care Teams Radio Despatcher Relationship Specialty Start Date End Date Elsewhere, Pcp PCP - General 03/07/20 documented as of this encounter
--- OUTSIDE RECORDS SUMMARY | 2022-05-14 18:44 | XMS_ITS | Encounter Summary ---
:2000 Author Organization [facility] Address [address] [place] [address] Care Team Providers Name Role Phone Elsewhere, Pcp Primary Care Provider Unavailable Reason for Visit Reason Onset Date Comments Outpatient COVID-19 Testing 06/15/2020 Encounter Details Date Type Department Care Team Description 06/15/2020 External Outreach Department of Juan Ag Infect ion Upper Internal Medicine in J, D.O. Respiratory (Primary [place], [place] [address] Dx) [address] [place] [phone] 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 Tobacco Use Types Packs/Day Years Used Date Smoking Tobacco: Never Sex Assigned at Date Recorded Not on file documented as of this encounter Progress Notes Areli Li CRodneyMRodneyARodney - 06/15/2020 8:42 AM CST Encounter created for the drive-through COVID-19 testing. GHT BRAKEMAN documented in this encounter Plan of Treatment Not on filedocumented as of this encounter Procedures Procedure Name Priority Date/Time Associated Diagnosis Comme nts SARS CORONAVIRUS-2 Routine 06/15/2020 1:04 PM Infection Upper Results for this RNA, V FREIGHT BRAKEMAN Respiratory procedure are i n the results section. documented in this encounter Results SARS Coronavirus-2 RNA, V Symptomatic (06/15/2020 1:04 PM FREIGHT BRAKEMAN) [facility] Method Time Signature SARS-CoV-2 Swab, 06/16/2020 MKTO Specimen Nasopharynx 2:04 PM FREIGHT BRAKEMAN Source SARS CoV-2 Undetected Undetected 06/16/2020 MKTO RNA, TMA 2:04 PM FREIGHT BRAKEMAN Comment: SARS-CoV-2 RNA absent. This result does not rule out COVID-19 in the patient, as the sensitivity of the test depends o n the timing of the specimen collection and the quality of the specim en. Result should be correlated with patient's history and clinical presentat ion. ----ADDITIONAL INFORMATION---- This test is performed using the Aptima SARS-CoV-2 assay ([employer] which has received Emergency Use Authori zation (EUA) by the U.S. Food and Drug Administration. Fact sheets for this Emergency Use Autho rization (EUA) assay can be found at the following links: For Healthcare Providers: https://www.[employer] a.gov/media/255506/download For Patients: https://www.fda.gov/media/ 361473/download Specimen Anatomical Collection Method Collection Time Receive d Time (Source) Location / / Volume Laterality Varies 06/15/2020 1:04 PM 0 (Nasopharynx) FREIGHT BRAKEMAN 11:28 PM FREIGHT BRAKEMAN Juan Ag D.O. LAB MICROBIOLOGY - GENERAL O DEJAN Performing Organization Address City/State/ZIP Code Phon e Number [facility]- [address] [place] [address] [place] [address] [address] documented in this encounter Visit Diagnoses Diagnosis Infection Upper Respiratory - Primary documented in this encounter Additional Health Concerns Infection Onset Date Last Indicated Resolved Time COVID19 Pending 06/15/2020 06/15/2020 06/16/2020 2:04 PM FREIGHT BRAKEMAN documented as of this encounter Care Teams Water Sponger Relationship Specialty Start Date End Date Elsewhere, Pcp PCP - General 03/07/20 documented as of this encounter
--- OUTSIDE RECORDS SUMMARY | 2022-05-14 18:44 | XMS_ITS | Encounter Summary ---
:2000 Author Organization [facility] Address [address] [place] [address] Care Team Providers Name Role Phone Elsewhere, Pcp Primary Care Provider Unavailable Reason for Visit Reason Comments COVID Inquiry Encounter Details Date Type Department Care Team Description 12/17/2020 Clinical Communication Department of [facility], Pcp COVID Inquiry [facility], [facility], in [place], [place] [address] [place] [phone] 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 Tobacco Use Types Packs/Day Years Used Date Smoking Tobacco: Never Sex Assigned at Date Recorded Not on file documented as of this encounter Miscellaneous Notes Telephone Encounter - Kasia Ayala - 12/17/2020 12:26 PM CDT What is the purpose of the call?: Symptomatic (Calling PCP Office) Calling [facility] PCP Office What region is the patient calling from? : [place] Have you tested positive for COVID-19 in [...] sending patient for testing in [facility], route encounter to the correct testing pool. documented in this encounter Plan of Treatment Not on filedocumented as of this encounter Visit Diagnoses Not on filedocumented in this encounter Care Teams Construction Scheduler Relationship Specialty Start Date End Date Elsewhere, Pcp PCP - General 03/07/20 documented as of this encounter
--- OUTSIDE RECORDS SUMMARY | 2022-05-14 18:44 | XMS_ITS | Encounter Summary ---
:2000 Author Organization [facility] Address [address] [place] [address] Care Team Providers Name Role Phone Unavailable Primary Care Provider Unavailable Encounter Details Date Type Department Care Team Description 06/15/2016 Hospital Encounter HX NO MAPPING Mer Encarnacion, DUSTY, C.N.P. [address] [place], [place] [phone] (Wo rk) 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 Tobacco Use Types Packs/Day Years Used Date Smoking Tobacco: Never Assessed Sex Assigned at Date Recorded Not on file documented as of this encounter Miscellaneous Notes Miscellaneous - Conversion, Historical Provider Ser - 06/15/2016 11:59 PM CATTYMAN Coding Summary-Paper Based CODING DATE: 06/24/2016 FINAL [facility] STATUS: * Dis[facility] to Home or Self Care [facility]: REASON FOR VISIT DX: [...] MOSS Date Saved: 06/24/2016 11:23 am Source: [facility] Document Id: [id number] documented in this encounter Plan of Treatment Not on filedocumented as of this encounter Visit Diagnoses Not on filedocumented in this encounter Additional Health Concerns Assessment Noted Time PHQ-9 Depression Total Score: 1 04/22/2014 12:46 PM CD T documented as of this encounter
--- OUTSIDE RECORDS SUMMARY | 2022-05-14 18:44 | XMS_ITS | Encounter Summary ---
:2000 Author Organization [facility] Address [address] [place] [address] Care Team Providers Name Role Phone Mary Farr M.D. Primary Care Provider Encounter Details Date Type Department Care Team Description 01/27/2017 Hospital Encounter HX FBCV FAMILYPRA Kecia Garcia APRN, C.N.P. [address] [place], [place] [phone] (Wo rk) 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 [...] go to college. 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 MEDICATIONS No active medications [...] Child & Teen Checkup Charge Developmental Testing ([place]) Charge - [id number] OV Est Pt Prev Svc [id number] Encounter [...] # 84 tab(s), 3 Refill(s), Maintenance, Pharmacy: [id number] Electronically Signed By: KECIA GARCIA APRN, CNP On: 01/27/2017 04:39 PM Source: [facility] POWERCHART Document Id: [id number] documented in this encounter Procedure Notes Ara Lange L.P.N. - 01/27/2017 4:16 PM CDT Vision Testing Vision Testing Entered On: 01/27/2017 16:16 CDT Performed On: 01/27/2017 16:16 CDT by ARA LANGE LPN Vision Testing Eye, Right with Correction : 20/25 Eye, Left w/Correction : 20/20 ARA LANGE LPN - 01/27/2017 16:16 CDT Source: [employer] Document Id: [id number] CDT!4 Ara Lange L.P.N. - 01/27/2017 4:14 [...] LANGE LPN - 01/27/2017 16:14 CDT Source: [employer] Document Id: [id number] CDT!16 documented in this encounter Nursing Notes [...] whole grains every day. Less healthy foods-like cayman islander fries, candy, and chips-should be eaten rarely. [...] this visit. Based on recommendations from the [place] [employer], at this visit your [...] away. Next checkup at: PARENT NOTES: ?? [phone] Alyssa Hammond, [address] [place] [address], [place] [address]. All rights reserved. This information is not intended as a substitute for professional medical care. Always follow your healthcare professional's instructions. This document has images extracted. Please consider using [employer] for all your patient education needs. Source: [facility] 1o1Media Document Id: [id number] documented in this encounter Miscellaneous Notes Miscellaneous - Debbie Orta, MICHAEL([facility]) - 01/27/2017 5:13 PM CDT *General [...] Please send new order to queue. [facility] Document Id: [id number] Miscellaneous - Ara Lange L.P.N. - 01/27/2017 [...] LANGE LPN - 01/27/2017 16:44 CDT Source: [employer] Document Id: [id number] CDT!16 Miscellaneous - Kecia Garcia APRN, C.N.P. - 01/27/2017 4:28 PM CDT Ambulatory Patient Summary [facility] [address] [place] [id number] Visit Information Name: AMAIRANI NAQVI [facility] Number: [id number] Current Date: 01/27/2017 16:28:23 Physicians Attending Provider: KECIA GARCIA APRN TOP SPOTTER Primary Care Provider: KECIA GARCIA APRN TOP SPOTTER AMAIRANI NAQVI has been given the following [...] Oral, once a day New Routed to [address] [address] Stop Taking the Following Medications: Medication list [...] whole grains every day. Less healthy foods--like cayman islander fries, candy, and chips--should be eaten rarely. [...] this visit. Based on recommendations from the [employer], at this visit your [...] away. Next checkup at: PARENT NOTES: ?? [phone] [facility], [address] [place] [address]. All rights reserved. This information is not [...] if you dont have one. Go to [email or web address] and click on Create Your Account. Then, follow the directions to complete the online form. Youll be asked for your [facility] number which you can find at the top of this document. Your Goals/Additional instructions: This document has images extracted. Please consider using [employer] for all your patient education needs. Source: [facility] POWERCHART Document Id: [id number] Miscellaneous - Kecia Garcia APRN, C.N.P. - 01/27/2017 4:28 PM CDT Ambulatory Discharge Medication List [address] [id number] Visit Information Name: AMAIRANI NAQVI [facility] Number: [id number] Current Date: 01/27/2017 16:28:23 [...] Oral, once a day New Routed to [address] [address] Stop Taking the Following Medications: Medication list [...] CNP Signed On:27-JAN-2017 16:28:05 Additional Information: Source: [facility] POWERCHART Document Id: [id number] Miscellaneous - Ara Lange L.P.N. - 01/27/2017 3:58 PM CDT Pediatric Migratory Worker Intake/History Pediatric Migratory Worker Intake/History Entered On: 01/27/2017 16:01 CDT Performed [...] Preferred Communication Mode : Verbal Languages : Welsh Is Patient Female and 13-50 no hysterectomy [...] LANGE LPN - 01/27/2017 15:58 CDT Source: [facility] POWERCHART Document Id: [id number] CDT!36 documented in this encounter Plan of Treatment Not on filedocumented as of this encounter Visit Diagnoses Not on filedocumented in this encounter Care Teams Launch Operator Relationship Specialty Start Date End Date Mary Farr M.D. PCP - General 01/20/17 02/03/17 documented as of this encounter
--- OUTSIDE RECORDS SUMMARY | 2022-05-14 18:44 | XMS_ITS | Encounter Summary ---
:2000 Author Organization [facility] Address [address] [place] [address] Care Team Providers Name Role Phone Mer Encarnacion APRN C.N.PRodney Primary Care Provider [phone] Encounter Details Date Type Department Care Team Description 03/03/2017 Hospital Encounter HX FBCV FAMILYPRA Isai Collins, P.ARodney-CRodney [address] [facility] [address] [place] [place] [phone] (Wo rk) 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 [...] Johnson, P.A.-C. - 03/03/2017 2:44 PM CDT [id number] CHIEF COMPLAINT/REASON FOR VISIT Possible UTI. HISTORY [...] [facility] MHSDOLBEYNKAYLASYS Document Id: [id number] documented in this encounter Miscellaneous Notes Miscellaneous - Dickson Johnson - 03/09/2017 9:46 PM CDT Results Notification Document Contains Addenda Addendum by TAMARA FONTANA LPN on March 10, 2017 15:33:22 CDT Spoke with: ( _ ) Patient ( X Lilo ) Parent ( _ ) Spouse ( _ ) Child ( ) Other: _ Call back telephone number: [phone] Reason for Call: -lab results Chief Complaint: Patient's mom informed of message below. She states that their insurnace has changed and now they will need to be seen in [place]. She will talk with patient and find someone in [place] to followup with. Patient/Caller response to Education/Information [...] day Callers preferred language for Healthcare discussion: hong konger Was an senior research project manager used for this call? no Other ( --_ ) Addendum by TAMARA FONTANA LPN on March 10, 2017 15:26:46 CDT Left message for patient's mom to return call. Addendum by VANE ALEXANDER on March 10, 2017 12:33:49 CDT Lilo Ramirez (mom) called back again - she will be off work at 1:45 so call back after that please. [phone] Addendum by VANE ALEXANDER on March 10, 2017 10:07:55 CDT Lilo Ramirez (mom) returned call - best time to reach her today is 12:30 - 1:00 (during her lunch break) - otherwise leave a message and she will try back again when she can. [phone] Addendum by TAMARA FONTANA LPN on March [...] [facility] POWER[facility] Document Id: [id number] Miscellaneous - Tamara Fontana, LRodneyP.N. - 03/03/2017 2:54 PM CDT Pediatric Manager Cardiac Intake/History Pediatric Manager Cardiac Intake/History Entered On: 03/03/2017 14:57 CDT Performed [...] Given By : Patient, Mother Languages : Salvadorean Is Patient Female and 13-50 no hysterectomy : Yes Status : Patient denies Are you ? : No TAMARA FONTANA ACADEMIC DIRECTOR - 03/03/2017 14:54 CDT Subjective Pain Symptoms : No TAMARA FONTANA ACADEMIC DIRECTOR - 03/03/2017 14:54 CDT Dependent Habits Exposure to Tobacco Smoke : Care provider denies smoking in home Smoking Status : Never smoker Tobacco 2A : No Tobacco Use/Currently Using : No Tobacco Use/Last 30 Days : No Tobacco Use/Last 12 months : No TAMARA FONTANA ACADEMIC DIRECTOR - 03/03/2017 14:54 CDT Source: [facility] POWERCHART Document Id: [id number] CDT!28 documented in this encounter Plan of [...] Culture, Aerobic, Urine (03/03/2017 3:45 PM CDT) [facility] gist Method Time Signature Bacterial POWERCHART Culture, Aerobic, Urine HXFinal Mixed rajnan. No POWERCHART further studies unless notified. [facility] Microbiology laboratory [phone]. Specimen Anatomical Collection Method Collection Time Receive [...] Color Yellow Colorless POWERCHART Specific <=1.005 POWERCHART [place], POCT, U Comment: Reference Range Specific [place]: 1.000-1.035 pH, POCT, Urine 6.0 <5.0 POWERCHART [...] on filedocumented in this encounter Care Teams Performance Test Engineer Relationship Specialty Start Date End Date Mer Encarnacion, DUSTY, C.N.P. PCP - General 02/04/17 03/06/[address] [place] [phone] documented as of this encounter
--- OUTSIDE RECORDS SUMMARY | 2022-05-14 18:44 | XMS_ITS | Encounter Summary ---
:2000 Author Organization [facility] Address [address] [place] [address] Care Team Providers Name Role Phone Unavailable Primary Care Provider Unavailable Encounter Details Date Type Department Care Team Description 04/22/2014 Hospital Encounter HX [facility] Sa manolo Farr M.D. [phone] (Wo rk) 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 Tobacco Use Types [...] Farr M.D. - 04/22/2014 7:43 AM CDT [id number] CHIEF COMPLAINT/REASON FOR VISIT This 13-1/2-year-old girl is seen for a well-child check. 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 Her academic performance is appropriate, according to [...] has some facial acne. She has an caui-til-jblofpj benzoyl peroxide product for that and is [...] all four extremities. Babinski response negative bilaterally. Evhjkn-ls-efyh testing normal. Romberg negative. Normal tone. IMPRESSION/REPORT/PLAN [...] FARR MD On: 04/23/2014 12:48 PM Source: [facility] MHSDOLBEYNONRADSYS Document Id: [id number] documented in this encounter Miscellaneous Notes Miscellaneous [...] FARR MD - 05/04/2014 12:46 CDT Source: [employer] Document Id: [id number] CDT!15 Loricellaneous - Mary Farr M.D. - 04/22/2014 9:46 AM CDT Ambulatory Patient Summary [address] [id number] Visit Information Name: DONYA AMAIRANICHESTER MOBLEY [facility] Number: [id number] Current Date: 04/22/2014 09:46:04 Physicians [...] appointment detail needed. Your Goals/Additional instructions: Source: [facility] POWERCHART Document Id: [id number] Miscellaneous - Mary Farr M.D. - 04/22/2014 9:46 AM CDT Ambulatory Discharge Medication List [address] [id number] Visit Information Name: AMAIRANI MARTINEZ [facility] Number: [id number] Visit Date: 04/22/2014 09:46:03 Attending [...] MD Signed On:22-APR-2014 09:45:57 Additional Information: Source: [facility] POWERCHART Document Id: [id number] Miscellaneous - Vy Maya L.P.N. - 04/22/2014 8:03 AM CDT Pediatric Crossbow Maker Intake/History Pediatric Crossbow Maker Intake/History Entered On: 04/22/2014 8:06 CDT Performed [...] Information Given By : Mother Languages : German Is Patient Female and [...] MAYA LPN - 04/22/2014 8:03 CDT Source: [facility] [employer] Document Id: [id number] CDT!31 documented in this encounter Plan of Treatment Not on filedocumented as of this encounter Visit Diagnoses Not on filedocumented in this encounter Additional Health Concerns Assessment Noted Time PHQ-9 Depression Total Score: 1 04/22/2014 12:46 PM CD T documented as of this encounter
--- OUTSIDE RECORDS SUMMARY | 2022-05-14 18:44 | XMS_ITS | Clinical Summary ---
:2000 Author Organization [facility] Address [address] [place] [address] Care Team Providers Name Role Phone Elsewhere, Pcp Primary Care Provider Unavailable Source Comments Patient records contain information from all sites at [facility]. For routine questions regarding patient records, call [phone] during business hours, M-F 8:00 AM - 5:00 PM Central Time. Record requests for emergency care only can be directed to [phone] at any time.[facility] Immunizations Name Administration Dates Next [...] Screening (Annual 08/08/2021 PHQ-2) Well Child Check-Up ([facility]) 08/08/2021 COVID-19 Vaccine (4 - 12/11/2021 10/16/2021, 2020, Booster for Moderna series) 08/11/2020 DTaP,Tdap,and Td Vaccines (7 01/27/2022 01/28/2012, 006, [...] Completed 11/16/2017, 04/22/2014, 03/15/2013, Additional history exists Insurance Payer Benefit Plan / Subscriber ID Effective Phone Address T e Group Dates PREFERREDONE PREFERREDONE [id number] 2019-Pre [phone] PPO ADMINISTRATIVE ADMINISTRATIVE sent [phone] SERVICES SERVICES [place] [phone] Care Teams Technical Project Lead Relationship Specialty Start Date End Date Elsewhere, Pcp PCP - General 03/07/20
--- OUTSIDE RECORDS SUMMARY | 2022-05-14 18:44 | XMS_ITS | Encounter Summary ---
:2000 Author Organization [facility] Address [address] [place] [address] Care Team Providers Name Role Phone Unavailable Primary Care Provider Unavailable Encounter Details Date Type Department Care Team Description 07/23/2016 Hospital Encounter HX NO MAPPING Mireya Baugh M.D. [address] [place], [place] [phone] (Wo rk) 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 Tobacco Use Types Packs/Day Years Used Date Smoking Tobacco: Never Assessed Sex Assigned at Date Recorded Not on file documented as of this encounter Miscellaneous Notes Miscellaneous - Conversion, Historical Provider Ser - 07/23/2016 11:59 PM GRAPHIC DESIGN PROFESSOR Coding Summary-Paper Based CODING DATE: 08/04/2016 FINAL [facility] STATUS: * Discharged to Home or Self Care [facility]: REASON FOR VISIT DX: [...] RAMOS Date Saved: 08/04/2016 04:34 pm Source: [facility] [employer] Document Id: [id number] documented in this encounter Plan of Treatment Not on filedocumented as of this encounter Visit Diagnoses Not on filedocumented in this encounter Additional Health Concerns Assessment Noted Time PHQ-9 Depression Total Score: 1 04/22/2014 12:46 PM CD T documented as of this encounter
--- OUTSIDE RECORDS SUMMARY | 2022-05-14 18:44 | XMS_ITS | Clinical Summary ---
:2000 Author Organization [facility] [place] [address] Care Team Providers Name Role Phone Tamara Wei MD Primary Care Provider [phone] Allergies No known active allergies Medications [...] Comments Blood Pressure 118/60 07/17/2021 9:18 AM IMPREGNATING MACHINE OPERATOR Pulse 109 07/17/2021 9:18 AM IMPREGNATING MACHINE OPERATOR Temperature 36.4 ??C (97.5 ??F) 02/03/2021 3:05 PM CDT Respiratory Rate 14 02/03/2021 3:05 PM CDT Oxygen Saturation 99% 02/03/2021 3:05 PM CDT Inhaled Oxygen Concentration - - Weight 74.7 kg (164 lb 11.2 oz) 07/17/2021 9:18 AM IMPREGNATING MACHINE OPERATOR Height 166 cm (5' 5.35) 07/17/2021 9:18 AM IMPREGNATING MACHINE OPERATOR Body Mass Index 27.11 07/17/2021 9:18 AM IMPREGNATING MACHINE OPERATOR Plan of Treatment Health Maintenance [...] ss Type Group PREFERRED ONE PREFERRED ONE [id number] 2017-Present [address] [place] [address] [place]ICAID [place]ICA[place] [id number] 2021-Presen [address] [address] [place] [address] Care Teams Liquefied Natural Gas Plant Operator Relationship Specialty Start Date End Date Tamara Wei MD PCP - General Family Practice 04/12/171999 [place] [address]
--- OUTSIDE RECORDS SUMMARY | 2022-05-14 18:44 | XMS_ITS | Encounter Summary ---
:2000 Author Organization [facility] Address [address] [place] [address] Care Team Providers Name Role Phone Unavailable Primary Care Provider Unavailable Encounter Details Date Type Department Care Team Description 09/04/[address] [facility] hTa Mccrary M.D. [address] [place], [place] [phone] (Wo rk) 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 Tobacco Use Types Packs/Day Years Used Date Smoking Tobacco: Never Assessed Sex Assigned at Date Recorded Not on file documented as of this encounter Progress Notes Gentry Cruz M.D. - 09/04/2014 3:46 PM CST [id number] The documentation for this visit is available in [employer] IMPRESSION/REPORT/PLAN #1 Myopia both eyes. Increased from previous exam. Plan: Update glasses. F/u six months. INT Gentry Cruz M.D./tarun Electronically Signed By: GENTRY CRUZ MD On: 09/10/2014 08:04 AM Source: [facility] MHSDOLBEYNONRADSYS Document Id: [id number] OMIZER documented in this encounter Miscellaneous Notes Miscellaneous - Gentry Cruz M.D. - 09/04/2014 4:28 PM CST Ambulatory Patient Summary [place] [id number] Visit Information Name: AMAIRANI MARTINEZ [facility] Number: [id number] Current Date: 09/04/2014 16:28:55 [...] appointment detail needed. Your Goals/Additional instructions: Source: [facility] POWERCHART Document Id: [id number] OMIZER Miscellaneous - Gentry Cruz M.D. - 09/04/2014 4:28 PM CST Ambulatory Discharge Medication List [facility] [address] [place] [id number] Visit Information Name: AMAIRANI MARTINEZ [facility] Number: [id number] Visit Date: 09/04/2014 16:28:54 [...] MD Signed On:04-SEP-2014 16:28:53 Additional Information: Source: [facility] POWERCHART Document Id: [id number] OMIZER documented in this encounter Plan of Treatment Not on filedocumented as of this encounter Visit Diagnoses Not on filedocumented in this encounter Additional Health Concerns Assessment Noted Time PHQ-9 Depression Total Score: 1 04/22/2014 12:46 PM CD T documented as of this encounter
--- OUTSIDE RECORDS SUMMARY | 2022-05-14 18:44 | XMS_ITS | Encounter Summary ---
:2000 Author Organization [facility] Address [address] [place] [address] Care Team Providers Name Role Phone Unavailable Primary Care Provider Unavailable Encounter Details Date Type Department Care Team Description 09/15/2016 Hospital Encounter HX FBCV FAMILYPRA Mireya Solorzano M.D. [address] [place], [place] [phone] (Wo rk) 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 [...] (128 lb 4.9 oz) 09/15/2016 2:20 PM SUPPORT REPRESENTATIVE Height - - Body Mass Index - - documented in this encounter Progress Notes Mireya Hendricks M.D. - 09/15/2016 2:10 PM CST [id number] CHIEF COMPLAINT/ REASON FOR VISIT Sore throat [...] behalf by Mary Tipton, a trained medical case manager. The creation of this record is based on the scribe's personal observations and the provider's statements to them. This document has been thomas cked and approved by the attending provider. Mireya Roberson M.D./niko Electronically Signed By: MIREYA HENDRICKS MD On: 10/14/2016 08:15 AM Source: [facility] MHSDOLBEYNONRADSYS Document Id: [id number] ORT REPRESENTATIVE documented in this encounter Miscellaneous Notes Miscellaneous - Mireya Hendricks M.D. - 09/16/2016 10:21 PM SUPPORT REPRESENTATIVE Ambulatory Patient Summary [address] [id number] Visit Information Name: AMAIRANI MARTINEZ [facility] Number: [id number] Current Date: 09/16/2016 22:21:07 Physicians [...] if you dont have one. Go to [email or web address] and click on Create Your Account. Then, follow the directions to complete the online form. Youll be asked for your [facility] number which you can find at the top of this document. Your Goals/Additional instructions: Source: [facility] [employer] Document Id: [id number] ORT REPRESENTATIVE Miscellaneous - Mireya Hendricks M.D. - 09/16/2016 10:21 PM SUPPORT REPRESENTATIVE Ambulatory Discharge Medication List [address] [id number] Visit Information Name: AMAIRANI MARTINEZ [facility] Number: [id number] Current Date: 09/16/2016 22:21:06 Attending [...] MD Signed On:16-SEP-2016 22:21:00 Additional Information: Source: [facility] POWERCHART Document Id: [id number] ORT REPRESENTATIVE Miscellaneous - Amelie Christie L.P.N. - 09/15/2016 2:20 PM CST Pediatric Customer Resolution Specialist Intake/History Pediatric Customer Resolution Specialist Intake/History Entered On: 09/15/2016 14:24 SUPPORT REPRESENTATIVE Performed On: 09/15/2016 14:20 SUPPORT REPRESENTATIVE by AMELIE CHRISTIE CHIMNEY BUILDER Intake Chief Complaint : c/o ST for [...] Weight Clinic : 58.2 kg AMELIE CHRISTIE CHIMNEY BUILDER - 09/15/2016 14:20 SUPPORT REPRESENTATIVE General Info Languages : Italian Is Patient Female and 13-50 no hysterectomy : Yes Status : Patient denies Are you ? : No AMELIE CHRISTIE LPN - 09/15/2016 14:20 SUPPORT REPRESENTATIVE Subjective Pain Symptoms : No AMELIE CHRISTIE LPN - 09/15/2016 14:20 SUPPORT REPRESENTATIVE Dependent Habits Exposure to Tobacco Smoke : Care provider denies smoking in home Smoking Status : Never smoker Tobacco 2A : No Tobacco Use/Currently Using : No Tobacco Use/Last 30 Days : No Tobacco Use/Last 12 months : No AMELIE CHRISTIE LPN - 09/15/2016 14:20 SUPPORT REPRESENTATIVE Source: [facility] POWERCHART Document Id: [id number] SUPPORT REPRESENTATIVE!30 ORT REPRESENTATIVE documented in this encounter Plan of Treatment Not on filedocumented as of this encounter Procedures Procedure Name Priority Date/Time Associated Diagnosis Comme nts RAPID STREP A Routine 09/15/2016 2:25 PM Results for this SCREEN SUPPORT REPRESENTATIVE procedure are i n the results section. RAPID STREP A Routine 09/15/2016 2:25 PM Results for this SCREEN SUPPORT REPRESENTATIVE procedure are i n the results section. documented in this encounter Results Rapid Strep A Screen (09/15/2016 2:25 PM SUPPORT REPRESENTATIVE) [facility] Method Time Signature HXRapid Strep POWERCHART Confirmation HXPre Negative for POWERCHART Group A Strep by culture. HXFinal Negative for POWERCHART Group A Strep by culture. Specimen Anatomical Collection Method Collection Time Receive d Time (Source) Location / / Volume Laterality Throat 09/15/2016 2:25 PM 7 2:25 SUPPORT REPRESENTATIVE PM SUPPORT REPRESENTATIVE Mireya Baugh M.D. LAB MICROBIOLOGY - GEN ERAL ORDERABLES Performing Organization Address [facility] Code Phon e Number POWERCHART Rapid Strep A Screen (09/15/2016 2:25 PM SUPPORT REPRESENTATIVE) [facility] Method Time Signature HXStrep A POWERCHART Screen Rapid HXFinal Negative for POWERCHART Strep Group A by rapid screen. HXFinal Culture POWERCHART confirmation to follow. Specimen (Source) Anatomical Collection Method Collection Time Re ceived Time Location / / Volume Laterality Throat 09/15/2016 2:25 PM SUPPORT REPRESENTATIVE Mireya Baugh M.D. LAB MICROBIOLOGY - GEN ERAL ORDERABLES Performing Organization Address City/[facility] Code Phon e Number POWERCHART documented in this encounter Visit Diagnoses Not on filedocumented in this encounter Additional Health Concerns Assessment Noted Time PHQ-9 Depression Total Score: 1 04/22/2014 12:46 PM CD T documented as of this encounter
--- OUTSIDE RECORDS SUMMARY | 2022-05-14 18:44 | XMS_ITS | Encounter Summary ---
:2000 Author Organization [facility] Address [address] [place] [address] Care Team Providers Name Role Phone Unavailable Primary Care Provider Unavailable Encounter Details Date Type Department Care Team Description 12/10/2015 Hospital Encounter HX [facility] PEDIATRIC Sa manolo Farr M.D. [phone] (Wo rk) 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 Tobacco Use Types [...] Absolute: 4.58 12/10/15 Lymph Absolute: 2.88 12/10/15 [place] Absolute: 0.81 High 12/10/15 Eos Absolute: 0.08 [...] FARR MD On: 12/13/2015 12:23 PM Source: [facility] POWERCHART Document Id: [id number] documented in this encounter Miscellaneous Notes Miscellaneous - Mary Farr M.D. - 12/13/2015 12:25 PM CDT Normal Results Letter December 13, 2015 AMAIRANI MARTINEZ [address] [facility] [id number] Dear AMAIRANI MARTINEZ, I am pleased to [...] Absolute (x10(9)/L) 2.88 12/10/2015 1.20 - 5.20 [place] Absolute (x10(9)/L) (H) 0.81 12/10/2015 0.00 - 0.80 Eos Absolute (x10(9)/L) 0.08 12/10/2015 0.00 - 0.50 Baso Absolute (x10(9)/L) 0.02 12/10/2015 0.00 - 0.20 tFerritin Lvl (ng/mL) 37.0 12/10/2015 11.0 - 307.0 Sincerely, MARY FARR [facility] TIMOTHY Marino [address] Electronic Signature Electronically Signed By: MARY FARR MD On: December 13, 2015 This document has images extracted. Source: [facility] POWERCHART Document Id: [id number] Electronically signed by Conversion, [facility] Prototype Model Maker [id number] at 01/01/2017 1:11 PM CDT Miscellaneous - Mary Farr M.D. - 12/10/2015 5:16 PM CDT Ambulatory Patient Summary [address] [facility] TIMOTHY Marino [id number] Visit Information Name: AMAIRANI MARTINEZ [facility] Number: [id number] Current Date: 12/10/2015 17:16:18 Physicians [...] dont have one. Go to [facility] [email or web address] and click on Create Your Account. Then, follow the directions to complete the online form. Youll be asked for your [facility] number which you can find at the [...] one or two doses per week. Source: [facility] [employer] Document Id: [id number] Miscellaneous - Mary Farr M.D. - 12/10/2015 5:16 PM CDT Ambulatory Discharge Medication List [address] [id number] Visit Information Name: DONYA, AMAIRANICHESTER MOBLEY [facility] Number: [id number] Visit Date: 12/10/2015 17:16:17 Attending [...] MD Signed On:10-DEC-2015 17:13:52 Additional Information: Source: [facility] ENDOTRONIXCHART Document Id: [id number] Miscellaneous - Amelie Christie L.P.N. - 12/10/2015 4:30 PM CDT Pediatric Seamer Intake/History Pediatric Seamer Intake/History Entered On: 12/10/2015 16:34 CDT Performed [...] 12/10/2015 16:30 CDT General Info Languages : Belizean Is Patient Female and 13-50 no hysterectomy [...] CHRISTIE LPN - 12/10/2015 16:30 CDT [facility] Document Id: [id number] CDT!32 documented in this encounter Plan of [...] health gist Method Time Signature Infectious POWERCHART [place] Test, S HXFinal Negative POWERCHART HXFinal Reference: POWERCHART Negative Specimen (Source) Anatomical Collection Method Collection Time Re ceived Time Location / / Volume Laterality Blood 12/10/2015 5:09 PM CDT Mary Farr M.D. LAB POCT ORDERABLES-MANUAL Performing Organization Address City/State/ZIP Code Phon e Number POWERCHART (ABNORMAL) Automated Differential (12/10/2015 5:02 PM CDT) [facility] gist Method Time Signature Absolute 4.58 [...] X109L Erythrocytes 4.58 4.10 - 5.20 POWERCHART [id number] Hemoglobin 13.6 12.2 - 14.8 POWERCHART GDL [...]
--- OUTSIDE RECORDS SUMMARY | 2022-05-14 18:45 | XMS_ITS | Encounter Summary ---
:2000 Author Organization [facility] Address [address] [place] [address] Care Team Providers Name Role Phone Unavailable Primary Care Provider Unavailable Encounter Details Date Type Department Care Team Description 11/15/2013 Hospital Encounter HX [facility] OW[facility]a Marie M.D. [address] [place], [place] [phone] (Wo rk) 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 Tobacco Use Types Packs/Day Years Used Date Smoking Tobacco: Never Assessed Sex Assigned at Date Recorded Not on file documented as of this encounter Plan of Treatment Not on filedocumented as of this encounter Visit Diagnoses Not on filedocumented in this encounter
--- OUTSIDE RECORDS SUMMARY | 2022-05-14 18:45 | XMS_ITS | Encounter Summary ---
:2000 Author Organization [facility] Address [address] [place] [address] Care Team Providers Name Role Phone Unavailable Primary Care Provider Unavailable Encounter Details Date Type Department Care Team Description 03/15/2013 Hospital Encounter HX [facility] PEDIATRIC Tom Peoples M.D. [address] [place], [place] [address] (Wo rk) 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 Tobacco [...] Peoples M.D. - 03/15/2013 12:34 PM CDT [id number] CHIEF COMPLAINT/REASON FOR VISIT A 12-year-old well-child [...] PEOPLES MD On: 03/19/2013 04:50 PM Source: [facility] MHSDOLBEYNONRADSYS Document Id: [id number] documented in this encounter Procedure Notes Conversion, Historical Provider Ser - 03/15/2013 1:29 PM CDT Vision Testing Vision Testing Entered On: 03/15/2013 13:29 CDT Performed On: 03/15/2013 13:29 CDT by JENN BOLIVAR LPN Vision Testing Corrective Lenses : Glasses Color Vision : Pass Eye, Right with Correction : 20/20 Eye, Left w/Correction : 20/25 JENN BOLIVAR LPN - 03/15/2013 13:29 CDT Source: [facility] POWERSkipjump Document Id: [id number] CDT!6 Conversion, Historical Provider Ser - 03/15/2013 [...] BOLIVAR LPN - 03/15/2013 13:29 CDT Source: [facility] Combatant Gentlemen Document Id: [id number] CDT!44 documented in this encounter Miscellaneous Notes Miscellaneous - Venus Peolpes M.D. - 03/15/2013 1:49 PM CDT Ambulatory Depart Summary [address] [address] Visit Information Name: AMAIRANI MARTINEZ [facility] Number: [id number] Visit Date: 03/15/2013 13:49:04 Attending [...] your provider for clarification. Additional Information: Source: [employer] Document Id: [id number] Miscellaneous - Venus Peoples M.D. - 03/15/2013 1:49 PM CDT Ambulatory Patient Summary [address] [address] Visit Information Name: AMAIRANI MARTINEZ [facility] Number: [id number] Current Date: 03/15/2013 13:49:04 Physicians [...] No Appointments found Your Goals/Additional instructions: Source: [employer] Document Id: [id number] Miscellaneous - Conversion, Historical Provider Ser - 03/15/2013 1:14 PM CDT Pediatric Ibm Mainframe Developer Intake/History Pediatric Ibm Mainframe Developer Intake/History Entered On: 03/15/2013 13:15 CDT Performed [...] Info Preferred Name : Amairani Languages : Paraguayan JENN BOLIVAR LPN - 03/15/2013 13:14 CDT Subjective Pain Symptoms : No JENN BOLIVAR LPN - 03/15/2013 13:14 CDT Dependent Habits Tobacco Use/Currently Using : No Exposure to Tobacco Smoke : Care provider denies smoking in home Smoking Status : Never smoker JENN BOLIVAR LPN - 03/15/2013 13:14 CDT Source: [facility] POWERCHART Document Id: [id number] CDT!26 documented in this encounter Plan of Treatment Not on filedocumented as of this encounter Visit Diagnoses Not on filedocumented in this encounter
--- OUTSIDE RECORDS SUMMARY | 2022-05-14 18:45 | XMS_ITS | Encounter Summary ---
:2000 Author Organization [facility] Address [address] [place] [address] Care Team Providers Name Role Phone Unavailable Primary Care Provider Unavailable Encounter Details Date Type Department Care Team Description 09/22/2012 Hospital Encounter HX [facility] David Cortez M.D. [address], [place] [phone] (Wo rk) 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 Tobacco Use Types Packs/Day Years Used Date Smoking Tobacco: Never Assessed Sex Assigned at Date Recorded Not on file documented as of this encounter Plan of Treatment Not on filedocumented as of this encounter Visit Diagnoses Not on filedocumented in this encounter
--- OUTSIDE RECORDS SUMMARY | 2022-05-14 18:45 | XMS_ITS | Encounter Summary ---
:2000 Author Organization [facility] Address [address] [place] [address] Care Team Providers Name Role Phone Unavailable Primary Care Provider Unavailable Encounter Details Date Type Department Care Team Description 11/14/2013 Hospital Encounter HX [facility] Tha Hanley M.D. [address] [place], [place] [phone] (Wo rk) 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 [...] Right Eye Manifest Grid Date : 09/22/2012 FLIGHT CONTROL TOWER OPERATOR 11/14/2013 CDT Performed by : Anni Sphere : -3.50 -3.75 Visual Acuity Distance : 20/20 20/20 Visual Acuity Near : 20/20 WINDY GUTIERREZ RIKKI - 11/14/2013 16:22 CDT BILLY GUTIERREZYSTAL RIKKI - 11/14/2013 16:22 CDT Left Eye Manifest Grid Date : 09/22/2012 FLIGHT CONTROL TOWER OPERATOR 11/14/2013 CDT Performed by : Anni Sphere [...] Child Mix Eye Drop Time : 16:27 FLIGHT CONTROL TOWER OPERATOR Child Mix Eye Drop Comment : vco WINDY GUTIERREZ RIKKI - 11/14/2013 16:22 CDT Source: [facility] POWERCHART Document Id: [id number] CDT!41 documented in this encounter H&P Notes Gentry Cruz M.D. - 11/14/2013 4:09 PM CDT [id number] CHIEF COMPLAINT/REASON FOR VISIT Routine ophthalmic exam. IMPRESSION/REPORT/PLAN Increased myopia, both eyes. PLAN: Update glasses prescription. Follow up in 1 year. Gentry Cruz M.D./ladan Electronically Signed By: GENTRY CRUZ MD On: 11/15/2013 08:00 AM Source: [facility] MHSDOLBEYNONRADSYS Document Id: [id number] documented in this encounter Miscellaneous Notes Miscellaneous - Gentry Cruz M.D. - 11/14/2013 4:45 PM CDT Ambulatory Patient Summary [facility] [address] [place] [phone] Visit Information Name: AMAIRANI MARTINEZ [facility] Number: [id number] Current Date: 11/14/2013 16:45:19 Physicians Attending Provider: GENTRY CRUZ MD Primary Care Provider: VENUS WLELINGTON MD AMAIRANI MARTINEZ has been given the [...] appointment detail needed. Your Goals/Additional instructions: Source: [facility] POWERCHART Document Id: [id number] Miscellaneous - Gentry Cruz M.D. - 11/14/2013 4:45 PM CDT Ambulatory Discharge Medication List [facility] [address] [place], [place] [address] [id number] Visit Information Name: AMAIRANI MARTINEZ [facility] Number: [id number] Visit Date: 11/14/2013 16:45:18 Attending [...] MD Signed On:14-NOV-2013 16:45:17 Additional Information: Source: [facility] POWERCHART Document Id: [id number] documented in this encounter Plan of Treatment Not on filedocumented as of this encounter Visit Diagnoses Not on filedocumented in this encounter
--- OUTSIDE RECORDS SUMMARY | 2022-05-14 18:45 | XMS_ITS | Encounter Summary ---
:2000 Author Organization [facility] Address [address] [place] [address] Care Team Providers Name Role Phone Unavailable Primary Care Provider Unavailable Encounter Details Date Type Department Care Team Description 01/09/2014 Hospital Encounter HX [facility] Fred Hill M.D. [address] [place] [address] (Wo rk) 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 [...] Hill M.D. - 01/09/2014 6:35 PM CDT [id number] CHIEF COMPLAINT/REASON FOR VISIT A 13-year-old female [...] HILL MD On: 01/11/2014 11:26 AM Source: [facility] MHSDOLBEYNONRADSYS Document Id: [id number] documented in this encounter Miscellaneous Notes Miscellaneous - Bean Kohler L.PRodneyNRodney - 01/09/2014 7:09 PM CDT Pediatric Early Childhood Lead Teacher Intake/History Pediatric Early Childhood Lead Teacher Intake/History Entered On: 01/09/2014 19:13 CDT Performed [...] Given By : Patient, Father Languages : Equatorial Guinean BEAN KOHLER - 01/09/2014 19:09 CDT Subjective [...] BEAN KOHLER - 01/09/2014 19:09 CDT Source: [facility] POWERCHART Document Id: [id number] CDT!29 documented in this encounter Plan of Treatment Not on filedocumented as of this encounter Visit Diagnoses Not on filedocumented in this encounter
--- OUTSIDE RECORDS SUMMARY | 2022-05-14 18:45 | XMS_ITS | Encounter Summary ---
:2000 Author Organization [facility] Address [address] [place] [address] Care Team Providers Name Role Phone Unavailable Primary Care Provider Unavailable Encounter Details Date Type Department Care Team Description 09/28/2010 Hospital Encounter HX [facility] PEDIATRIC Tom Peoples M.D. [address] [place], [place] [address] (Wo rk) 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 Tobacco [...] (77 lb 9.6 oz) 09/28/2010 11:18 AM GROUP FITNESS INSTRUCTOR Height - - Body Mass Index - - documented in this encounter Progress Notes Venus Peoples M.D. - 09/28/2010 12:00 AM CST [id number] CHIEF COMPLAINT/ REASON FOR VISIT Fevers. HISTORY [...] difficulty breathing. KSL/sks Signed Venus Peoples M.D. Locomotive Driver Electronically Signed By: VENUS PEOPLES MD On: 10/02/2010 04:21 Source: [facility] MHSDOLBEYNONRADSYS Document Id: [id number] P FITNESS INSTRUCTOR documented in this encounter Miscellaneous Notes Miscellaneous - Venus Peoples M.D. - 09/28/2010 11:34 AM CST Ambulatory Patient Summary [address] [address] Visit Information Name: AMAIRANI MARTINEZ Current Date: 09/28/2010 11:34:05 Primary Care Provider: VENUS PEOPLES MD [id number] Your Medications Here is a list of [...] No Appointments found Your Goals/Additional instructions: Source: [employer] Document Id: [id number] Kya - Venus Peoples M.D. - 09/28/2010 11:34 AM CST [place] [address] Visit Information Name: AMAIRANI MARTINEZ Current Date: 09/28/2010 11:34:05 Primary Care Provider: VENUS PEOPLES MD [phone] AMAIRANI MARTINEZ has been given the following [...] to the patient and/or family, guardian/caregiver. Source: [employer] Document Id: [id number] arima Boland - Chantell Sandoval - 09/28/2010 11:18 AM CST Pediatric Search Marketing Analyst Intake/History Pediatric Search Marketing Analyst Intake/History Entered On: 09/28/2010 11:20 GROUP FITNESS INSTRUCTOR Performed On: 09/28/2010 11:18 GROUP FITNESS INSTRUCTOR by CHANTELL UMANA Intake Ambulatory Intake Additional Information: started Thurs. Temps 102, ibuprofen and cough med at night. last night emesis after coughing. scarred tms, ow nml exam VENUS PEOPLES MD - 09/28/2010 11:33 GROUP FITNESS INSTRUCTOR Chief Complaint: fever, cough x 4 days Temperature Core: 37.8C(Converted to: 100.0DegF) Apical Heart Rate: 96/min (HI) Respiratory Rate: 22/min Systolic Blood Pressure: 96mmHg Diastolic Blood Pressure: 54mmHg NIBP Mean: 68mmHg BP Location: Right upper extremity Actual Weight: 35.200kg(Converted to: 77lb 10oz) Dosing Weight Clinic: 35.20kg CHANTELL UMANA - 09/28/2010 11:18 GROUP FITNESS INSTRUCTOR Subjective Pain Symptoms: No CHANTELL UMANA - 09/28/2010 11:18 GROUP FITNESS INSTRUCTOR Dependent Habits Tobacco Use/Currently Using: No CHANTELL UMANA - 09/28/2010 11:18 GROUP FITNESS INSTRUCTOR Allergy Allergies (Active) NKA Estimated Onset Date: Unspecified ; Created By: CHANTELL UMANA; Reaction Status: Active ; Category: Drug ; Substance: NKA ; Type: Allergy ; Updated By: CHANTELL UMANA; Reviewed Date: 09/28/201011:18 GROUP FITNESS INSTRUCTOR Source: [facility] POWERCHART Document Id: [id number] GROUP FITNESS INSTRUCTOR!3 P FITNESS INSTRUCTOR documented in this encounter Plan of Treatment Not on filedocumented as of this encounter Visit Diagnoses Not on filedocumented in this encounter
--- OUTSIDE RECORDS SUMMARY | 2022-05-14 18:45 | XMS_ITS | Encounter Summary ---
:2000 Author Organization [facility] Address [address] [place] [address] Care Team Providers Name Role Phone Unavailable [...] 11:24 AM C DT Growth Chart: [facility] (Girls, 2-20 Years) documented in this encounter Progress Notes Conversion, Historical Provider Ser - 05/22/2010 12:00 AM CDT [id number] IMPRESSION/REPORT/PLAN 1. Chronic otitis media. 2. Chronic [...] limits. The tongue is within normal limits. Rye's and Stensen's ducts are within normal limits [...] by:JORDYN KNIGHT On 05/26/2010 02:00 am Source: [facility] MHSDOLBEYNONRADSYS Document Id: [id number] documented in this encounter Miscellaneous Notes Miscellaneous - Conversion, Historical Provider Ser - 05/22/2010 11:24 AM CDT Adult Printer Technician Intake/History Adult Printer Technician Intake/History Entered On: 05/22/2010 11:33 CDT Performed [...] Habits Tobacco Use/Currently Using: Terese MIESHA ALLISON [facility] - 05/22/2010 11:24 CDT Allergies Allergies (Active) NKA Estimated Onset Date: Unspecified ; Created By: CHANTELL UMANA; Reaction Status: Active ; Category: Drug ; Substance: NKA ; Type: Allergy ; Updated By: CHANTELL UMANA; Reviewed Date: 05/22/201011:21 CDT Source: [facility] Document Id: [id number] CDT!14 documented in this encounter Plan of Treatment Not on filedocumented as of this encounter Visit Diagnoses Not on filedocumented in this encounter
--- OUTSIDE RECORDS SUMMARY | 2022-05-14 18:45 | XMS_ITS | Encounter Summary ---
:2000 Author Organization [facility] Address [address] [place] [address] Care Team Providers Name Role Phone Unavailable Primary Care Provider Unavailable Encounter Details Date Type Department Care Team Description 07/14/2010 Hospital Encounter [facility]X [facility]EDI[facility]RIC Tom Peoples M.D. [address] [place], [place] [address] (Wo rk) 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 Tobacco [...] (78 lb 14.8 oz) 07/14/2010 8:35 AM MALTED MILK MIXER Height - - Body Mass Index - - documented in this encounter Progress Notes Venus Peoples M.D. - 07/14/2010 12:00 AM CST [id number] CHIEF COMPLAINT/ REASON FOR VISIT Ear pain [...] Dr. Andrade. KSL/glt Signed Venus Peoples M.D. Air Bag Stripper Electronically Signed By:VENUS PEOPLES MD On 07/16/2010 03:34 pm Source: [facility] MHSDOLBEYNONRADSYS Document Id: [id number] ED MILK MIXER documented in this encounter Miscellaneous Notes Miscellaneous - Venus Peoples M.D. - 07/14/2010 8:45 AM CST Ambulatory Patient Summary [address] [address] Visit Information Name: AMAIRANI MARTINEZ Current Date: 07/14/2010 08:45:00 Primary Care Provider: VENUS PEOPLES MD [phone] Your Medications Here is a list of [...] No Appointments found Your Goals/Additional instructions: Source: [facility] POWERCHART Document Id: [id number] Miscellaneous - Venus Peoples M.D. - 07/14/2010 8:45 AM CST Ambulatory Depart Summary [address] [address] Visit Information Name: DONYA AMAIRANICHESTER NICOLELENNIE Current Date: 07/14/2010 08:45:00 Primary Care Provider: VENUS PEOPLES MD [phone] AMAIRANI MARTINEZ has been given the following [...] to the patient and/or family, guardian/caregiver. Source: [facility] POWERCHART Document Id: [id number] Electronically signed by Anastasia [facility] Social Security Assessor [id number] at 01/10/2017 4:58 AM CDT Miscellaneous - Chantell Sandoval - 07/14/2010 8:35 AM CST Pediatric Automatic Trimming Sewer Intake/History Pediatric Automatic Trimming Sewer Intake/History Entered On: 07/14/2010 8:37 MALTED MILK MIXER Performed On: 07/14/2010 8:35 MALTED MILK MIXER by CHANTELL UMANA Intake Ambulatory Intake Additional Information: 2 large bullous lesions. no fevers VENUS PEOPLES MD - 07/14/2010 8:44 MALTED MILK MIXER Chief Complaint: c/o left ear hurting, x 1 day; cold x 1 week Temperature Core: 37.1C(Converted to: 98.8DegF) Apical Heart Rate: 80/min Respiratory Rate: 22/min Systolic Blood Pressure: 102mmHg Diastolic Blood Pressure: 60mmHg NIBP Mean: 74mmHg BP Location: Right upper extremity Actual Weight: 35.800kg(Converted to: 78lb 15oz) Dosing Weight Clinic: 35.80kg CHANTELL UMANA - 07/14/2010 8:35 MALTED MILK MIXER Subjective Pain Symptoms: No CHANTELL UMANA - 07/14/2010 8:35 MALTED MILK MIXER Dependent Habits Tobacco Use/Currently Using: No CHANTELL UMANA - 07/14/2010 8:35 MALTED MILK MIXER Allergy Allergies (Active) NKA Estimated Onset Date: Unspecified ; Created By: CHANTELL UMANA; Reaction Status: Active ; Category: Drug ; Substance: NKA ; Type: Allergy ; Updated By: CHANTELL UMANA; Reviewed Date: 07/14/20108:34 MALTED MILK MIXER Source: [facility] POWERCHART Document Id: [id number] MALTED MILK MIXER!3 ED MILK MIXER documented in this encounter Plan of Treatment Not on filedocumented as of this encounter Visit Diagnoses Not on filedocumented in this encounter
--- OUTSIDE RECORDS SUMMARY | 2022-05-14 18:45 | XMS_ITS | Encounter Summary ---
:2000 Author Organization [facility] Address [address] [place] [address] Care Team Providers Name Role Phone Unavailable Primary Care Provider Unavailable Encounter Details Date Type Department Care Team Description 06/18/2010 Hospital Encounter HX [facility] AUDIOLOGY Mojgan Felix am, Au.D. 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 Tobacco Use Types Packs/Day Years Used Date Smoking Tobacco: Never Assessed Sex Assigned at Date Recorded Not on file documented as of this encounter Progress Notes Stas Felix - 06/18/2010 12:00 AM CST [id number] IMPRESSION / REPORT / PLAN She is following with Dr. Andrade. CHIEF COMPLAINT / REASON FOR VISIT Seen for an audiologic evaluation following tube removal. PHYSICAL EXAM AREA EXAM TEXT ENT Tympanograms are normal in both ears. Puretone testing results are consistent with normal hearing bilaterally. MOA/sks Signed Amari Forrest. Audiology Electronically Signed By:STAS FELIX On 06/22/2010 01:08 PM Source: [facility] MHSDOLBEYNONRADSYS Document Id: [id number] [employer] documented in this encounter Plan of Treatment Not on filedocumented as of this encounter Visit Diagnoses Not on filedocumented in this encounter
--- OUTSIDE RECORDS SUMMARY | 2022-05-14 18:45 | XMS_ITS | Encounter Summary ---
:2000 Author Organization [facility] Address [address] [place] [address] Care Team Providers Name Role Phone Unavailable Primary Care Provider Unavailable Encounter Details Date Type Department Care Team Description 04/10/2010 Hospital Encounter [facility] Tom Peoples M.D. [address] [place], [place] [address] (Wo rk) 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 Tobacco [...] Peoples M.D. - 04/10/2010 12:00 AM CDT [id number] CHIEF COMPLAINT/REASON FOR VISIT Left ear pain. [...] her Claritin. KSL/glt Signed Venus Peoples M.D. Director Of Health Education Electronically Signed By:VENUS PEOPLES MD On 04/17/2010 02:47 pm Source: [facility] MHSDOLBEYNONRADSYS Document Id: [id number] documented in this encounter Miscellaneous Notes Miscellaneous - Larish, Lacy M - 04/10/2010 4:12 PM CDT Pediatric Soaker Intake/History Pediatric Soaker Intake/History Entered On: 04/10/2010 16:12 CDT Performed [...] CHANTELL UMANA; Reviewed Date: 04/10/201016:11 CDT Source: [facility] POWERCHART Document Id: [id number] CDT!3 Miscellaneous - Chantell Sandoval - 03/03/2009 4:32 PM CDT Pediatric Growth Pediatric Growth Entered On: 04/10/2010 16:33 CDT Performed On: 03/03/2009 16:32 CDT by CHANTELL UMANA Pediatric Growth Height: 132.50cm(Converted to: 4ft 4in, 4.35ft, 52.17in) Actual Weight: 29.100kg(Converted to: 64lb 2oz, 64.155lb, 1,026.472oz) Body Mass Index: 17kg/m2 CHANTELL UMANA - 04/10/2010 16:32 CDT Source: [employer] Document Id: [id number] CDT!5 Miscellaneous - Chantell Sandoval - 03/25/2008 4:33 PM CDT Pediatric Growth Pediatric Growth Entered On: 04/10/2010 16:33 CDT Performed On: 03/25/2008 16:33 CDT by CHANTELL UMANA Pediatric Growth Height: 126.50cm(Converted to: 4ft 2in, 4.15ft, 49.80in) Actual Weight: 25.800kg(Converted to: 56lb 14oz, 56.879lb, 910.068oz) Body Mass Index: 16kg/m2 CHANTELL UMANA - 04/10/2010 16:33 CDT Source: [employer] Document Id: [id number] CDT!5 documented in this encounter Plan of Treatment Not on filedocumented as of this encounter Visit Diagnoses Not on filedocumented in this encounter
--- OUTSIDE RECORDS SUMMARY | 2022-05-14 18:45 | XMS_ITS | Encounter Summary ---
:2000 Author Organization [facility] Address [address] [place] [address] Care Team Providers Name Role Phone Unavailable Primary Care Provider Unavailable Encounter Details Date Type Department Care Team Description 05/21/2010 Hospital Encounter [facility] Tom Peoples M.D. [address] [place], [place] [address] (Wo rk) 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 Tobacco [...] Peoples M.D. - 05/21/2010 12:00 AM CDT [id number] CHIEF COMPLAINT/ REASON FOR VISIT Preanesthesia medical [...] surgery date. KSL/glt Signed Venus Peoples M.D. Steelworker Electronically Signed By:VENUS PEOPLES MD On 05/26/2010 02:41 pm Source: [facility] MHSDOLBEYNONRADSYS Document Id: [id number] documented in this encounter Miscellaneous Notes Miscellaneous - Chantell Sandoval - 05/21/2010 3:51 PM CDT Pediatric Geoscience Laboratory Technician Intake/History Pediatric Geoscience Laboratory Technician Intake/History Entered On: 05/21/2010 15:52 CDT Performed [...] CHANTELL UMANA; Reviewed Date: 05/14/201014:19 CDT Source: [facility] [employer] Document Id: [id number] CDT!20 documented in this encounter Plan of Treatment Not on filedocumented as of this encounter Visit Diagnoses Not on filedocumented in this encounter
--- OUTSIDE RECORDS SUMMARY | 2022-05-14 18:45 | XMS_ITS | Encounter Summary ---
:2000 Author Organization [facility] Address [address] [place] [address] Care Team Providers Name Role Phone Unavailable Primary Care Provider Unavailable Encounter Details Date Type Department Care Team Description 09/05/2013 Hospital Encounter [facility]X [facility] Sa manolo Farr M.D. [phone] (Wo rk) 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 Tobacco Use Types [...] (130 lb 1.1 oz) 09/05/2013 8:24 AM MEDICAL ASST Height - - Body Mass Index - - documented in this encounter Progress Notes Mary Farr M.D. - 09/05/2013 8:21 AM CST [id number] CHIEF COMPLAINT/REASON FOR VISIT Sore throat, cough, [...] test negative. IMPRESSION/REPORT/PLAN Viral illness. Last fever licensed insurance agent was 5 hours prior to the visit. May use ibuprofen or acetaminophenfor fever and discomfort. Best not to use true aspirin. The illness should run its course. Mary Farr M.D./ayaan Electronically Signed By: MARY FARR MD On: 09/06/2013 11:02 AM Source: [facility] MHSDOLBEYNONRADSYS Document Id: [id number] CAL ASST documented in this encounter Miscellaneous Notes Miscellaneous - Mary Farr M.D. - 09/05/2013 10:18 AM CST Ambulatory Patient Summary [address] [address] Visit Information Name: AMAIRANI MARTINEZ [facility] Number: [id number] Current Date: 09/05/2013 10:18:56 [...] Source: [facility] POWERCHART Document Id: [id number] CAL ASST Miscellaneous - Mary Farr M.D. - 09/05/2013 10:18 AM CST Ambulatory Depart Summary [address] [address] Visit Information Name: AMAIRANI MARTINEZ [facility] Number: [id number] Visit Date: 09/05/2013 10:18:55 [...] in case of emergency. Additional Information: Source: [facility] POWERCHART Document Id: [id number] CAL ASST Kya - Mary Farr M.D. - 09/05/2013 8:52 AM CST School Excuse 05 September 2013 AMAIRANI MARTINEZ [address] [facility] [id number] Dear AMAIRANI MARTINEZ, You were examined in [...] for 24 hours. Sincerely, MARY FARR [address] [place] [address] Electronic Signature Electronically Signed By: MARY FARR MD On: 05 September 2013 This document has images extracted. Source: [facility] POWERCHART Document Id: [id number] Electronically signed by Anastasia [facility] Assessor [id number] at 01/04/2017 6:58 AM CDT Kya - Amelie Christie L.P.NRodney - 09/05/2013 8:24 AM CST Pediatric Banquet Lead Intake/History Pediatric Banquet Lead Intake/History Entered On: 09/05/2013 8:28 MEDICAL ASST Performed On: 09/05/2013 8:24 MEDICAL ASST by AMELIE CHRISTIE Intake Chief Complaint : [...] kg PRATIK, AMELIE TRUJILLO - 09/05/2013 8:24 MEDICAL ASST General Info Languages : Paraguayan PRATIK AMELIE RONNIE - 09/05/2013 8:24 MEDICAL ASST Subjective Pain Symptoms : No PRATIKAMELIE RONNIE - 09/05/2013 8:24 MEDICAL ASST Dependent Habits Tobacco Use/Currently Using : No Exposure to Tobacco Smoke : Care provider denies smoking in home Smoking Status : Never smoker PRATIKAMELIE - 09/05/2013 8:24 MEDICAL ASST Source: [facility] POWERCHART Document Id: [id number] MEDICAL ASST!23 CAL ASST documented in this encounter Plan of Treatment Not on filedocumented as of this encounter Procedures Procedure Name Priority Date/Time Associated Diagnosis Comme nts RAPID STREP A Routine 09/05/2013 8:31 AM Results for this SCREEN MEDICAL ASST procedure are i n the results section. RAPID STREP A Routine 09/05/2013 8:31 AM Results for this SCREEN MEDICAL ASST procedure are i n the results section. documented in this encounter Results Rapid Strep A Screen (09/05/2013 8:31 AM MEDICAL ASST) [facility] gist Method Time Signature HXRapid Strep POWERCHART Confirmation HXFinal Negative POWERCHART Specimen Anatomical Collection Method Collection Time Receive d Time (Source) Location / / Volume Laterality Throat 09/05/2013 8:31 AM 4 8:31 MEDICAL ASST AM MEDICAL ASST Mary Farr M.D. LAB MICROBIOLOGY - GENERAL O RDERABLES Performing Organization Address City/State/ZIP Code Phon e Number POWERCHART Rapid Strep A Screen (09/05/2013 8:31 AM MEDICAL ASST) [facility] gist Method Time Signature HXStrep A POWERCHART Screen Rapid HXFinal Negative for POWERCHART Strep Group A by rapid screen. HXFinal Culture POWERCHART confirmation to follow. Specimen (Source) Anatomical Collection Method Collection Time Re ceived Time Location / / Volume Laterality Throat 09/05/2013 8:31 AM MEDICAL ASST Mary Farr M.D. LAB MICROBIOLOGY - GENERAL O RDERABLES Performing Organization Address City/State/ZIP Code Phon e Number POWERCHART documented in this encounter Visit Diagnoses Not on filedocumented in this encounter
--- OUTSIDE RECORDS SUMMARY | 2022-05-14 18:45 | XMS_ITS | Encounter Summary ---
:2000 Author Organization [facility] Address [address] [place] [address] Care Team Providers Name Role Phone Unavailable Primary Care Provider Unavailable Encounter Details Date Type Department Care Team Description 05/14/2010 Hospital Encounter HX [facility] Mojgan Felix am, Au.D. 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 Tobacco Use Types Packs/Day Years Used Date Smoking Tobacco: Never Assessed Sex Assigned at Date Recorded Not on file documented as of this encounter Progress Notes Stas Felix - 05/14/2010 12:00 AM CDT [id number] IMPRESSION / REPORT / PLAN She is [...] By:STAS FELIX On 05/18/2010 05:05 PM Source: [facility] MHSDOLBEYNONRADSYS Document Id: [id number] documented in this encounter Plan of Treatment Not on filedocumented as of this encounter Visit Diagnoses Not on filedocumented in this encounter
--- OUTSIDE RECORDS SUMMARY | 2022-05-14 18:45 | XMS_ITS | Encounter Summary ---
:2000 Author Organization [facility] Address [address] [place] [address] Care Team Providers Name Role Phone Unavailable [...] Provider Ser - 06/05/2010 12:00 AM CDT [id number] IMPRESSION/REPORT/PLAN 1. Resolving perforation of the tympanic [...] II, MD On 06/13/2010 09:48 pm Source: [facility] MHSDOLBEYNONRADSYS Document Id: [id number] documented in this encounter Miscellaneous Notes Miscellaneous - Conversion, Historical Provider Ser - 06/05/2010 10:42 AM CDT Pediatric Plate Printer Intake/History Pediatric Plate Printer Intake/History Entered On: 06/05/2010 10:43 CDT Performed [...] CHANTELL UMANA; Reviewed Date: 06/05/201010:42 CDT Source: [facility] [employer] Document Id: [id number] CDT!14 documented in this encounter Plan of Treatment Not on filedocumented as of this encounter Visit Diagnoses Not on filedocumented in this encounter
--- OUTSIDE RECORDS SUMMARY | 2022-05-14 18:45 | XMS_ITS | Encounter Summary ---
:2000 Author Organization [facility] Address [address] [place] [address] Care Team Providers Name Role Phone Unavailable Primary Care Provider Unavailable Encounter Details Date Type Department Care Team Description 08/24/2012 Hospital Encounter [facility]X [facility] Tom Peoples M.D. [address] [place], [place] [address] (Wo rk) 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 Tobacco Use Types Packs/Day Years Used Date Smoking Tobacco: Never Assessed Sex Assigned at Date Recorded Not on file documented as of this encounter Progress Notes Venus Peolpes M.D. - 08/24/2012 11:15 AM CST [id number] CHIEF COMPLAINT/REASON FOR VISIT Sore throat. HISTORY OF PRESENT ILLNESS Amairani is 11 years old and here with her mother. Also seen along with SWITCHBOARD MECHANIC student, Christine Corado. Amairani began this morning [...] PEOPLES MD On: 08/29/2012 08:22 AM Source: [facility] MHSDOLBEYNONRADSYS Document Id: [id number] SELF SERVICE STATION ATTENDANT documented in this encounter Miscellaneous Notes Miscellaneous - Venus Peoples M.D. - 08/24/2012 11:44 AM CST Ambulatory Depart Summary [address] [address] Visit Information Name: AMAIRANI MARTINEZ [facility] Number: [id number] Visit Date: 08/24/2012 [...] your provider for clarification. Additional Information: Source: [facility] POWERCHART Document Id: [id number] RTO [place] - Venus Peoples M.D. - 08/24/2012 11:44 AM CST Ambulatory Patient Summary [address] [address] Visit Information Name: AMAIRANI MARTINEZ [facility] Number: [id number] Current Date: 08/24/2012 [...] No Appointments found Your Goals/Additional instructions: Source: [facility] POWERCHART Document Id: [id number] RTO [place] - Chantell Pisano 08/24/2012 11:22 AM CST Pediatric Auto Parts Counter Person Intake/History Pediatric Auto Parts Counter Person Intake/History Entered On: 08/24/2012 11:24 AUTO SELF SERVICE STATION ATTENDANT Performed On: 08/24/2012 11:22 AUTO SELF SERVICE STATION ATTENDANT by CHANTELL PISANO Intake Chief Complaint : throat hurt, fever, headache, runny nose, cough Temperature Core : 38C(Converted to: 100.4DegF) Apical Heart Rate : 82/min Respiratory Rate : 20/min Systolic Blood Pressure : 100mmHg Diastolic Blood Pressure : 56mmHg NIBP Mean : 71mmHg BP Location : Left upper extremity Blood Pressure Cuff Size : Pediatric CHANTELL PISANO - 08/24/2012 11:22 AUTO SELF SERVICE STATION ATTENDANT Subjective Pain Symptoms : No CHANTELL PISANO - 08/24/2012 11:22 AUTO SELF SERVICE STATION ATTENDANT Dependent Habits Tobacco Use/Currently Using : No Smoking Status : Never smoker CHANTELL PISANO - 08/24/2012 11:22 AUTO SELF SERVICE STATION ATTENDANT Allergy Allergies (Active) NKA Estimated Onset Date: Unspecified ; Created By: CHANTELL UMANA; Reaction Status: Active ; Category: Drug ; Substance: NKA ; Type: Allergy ; Updated By: CHANTELL UMANA; Reviewed Date: 08/24/201211:22 AUTO SELF SERVICE STATION ATTENDANT Source: [facility] POWERCHART Document Id: [id number] SELF SERVICE STATION ATTENDANT documented in this encounter Plan of Treatment Not on filedocumented as of this encounter Procedures Procedure Name Priority Date/Time Associated Diagnosis Comme nts RAPID STREP A Routine 08/24/2012 11:35 AM Results for this SCREEN AUTO SELF SERVICE STATION ATTENDANT procedure are i n the results section. RAPID STREP A Routine 08/24/2012 11:35 AM Results for this SCREEN AUTO SELF SERVICE STATION ATTENDANT procedure are i n the results section. documented in this encounter Results Rapid Strep A Screen (08/24/2012 11:35 AM AUTO SELF SERVICE STATION ATTENDANT) [facility] Method Time Signature HXRapid Strep POWERCHART Confirmation HXFinal Negative POWERCHART Specimen Anatomical Collection Method Collection Time Receive d Time (Source) Location / / Volume Laterality Throat 08/24/2012 11:35 08/24/2012 AM AUTO SELF SERVICE STATION ATTENDANT 11:35 AM AUTO SELF SERVICE STATION ATTENDANT Venus Peoples M.D. LAB MICROBIOLOGY - GENERAL O DEJAN Performing Organization Address City/[facility] Code Phon e Number POWERCHART Rapid Strep A Screen (08/24/2012 11:35 AM AUTO SELF SERVICE STATION ATTENDANT) [facility] Method Time Signature HXStrep A POWERCHART Screen Rapid HXFinal Negative for POWERCHART Strep Group A by rapid screen. HXFinal Culture POWERCHART confirmation to follow. Specimen (Source) Anatomical Collection Method Collection Time Re ceived Time Location / / Volume Laterality Throat 08/24/2012 11:35 AM AUTO SELF SERVICE STATION ATTENDANT Venus Peoples M.D. LAB MICROBIOLOGY - GENERAL O DEJAN Performing Organization Address City/[facility] Code Phon e Number POWERCHART documented in this encounter Visit Diagnoses Not on filedocumented in this encounter
--- OUTSIDE RECORDS SUMMARY | 2022-05-14 18:45 | XMS_ITS | Encounter Summary ---
:2000 Author Organization [facility] Address [address] [place] [address] Care Team Providers Name Role Phone Unavailable Primary Care Provider Unavailable Encounter Details Date Type Department Care Team Description 09/22/2012 Hospital Encounter HX [facility] David Campuzano M.D. [address] [place], [place] [phone] (Wo rk) 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 Tobacco Use Types Packs/Day Years Used Date Smoking Tobacco: Never Assessed Sex Assigned at Date Recorded Not on file documented as of this encounter Progress Notes Nneka Mcnair - 09/22/2012 10:22 AM CST [facility] Ex[facility] Exam Entered On: 09/22/2012 10:45 ASSEMBLER INSTALLER STRUCTURES Performed On: 09/22/2012 10:22 ASSEMBLER INSTALLER STRUCTURES by NNEKA MCNAIR Chief Complaint and History Chief Complaint : Routine exam (Comment: NEW CE. [NNEKA MCNAIR - 09/22/2012 10:22 ASSEMBLER INSTALLER STRUCTURES] ) Pain Symptoms : No Smoking Status : Never smoker Comment : HERE WITH MOTHER. STATES ---- 3 MOS HX OF H/A'S. 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 GOOD GEN HEALTH. ROS--WNL. NNEKA MCNAIR - 09/22/2012 10:22 ASSEMBLER INSTALLER STRUCTURES Vision Testing Right Eye Vision Testing : With glasses - primary, 20/25, -1 Left Eye Vision Testing : With glasses - primary, 20/30 (Comment: PH25 [NNEKA MCNAIR - 09/22/2012 10:22 ASSEMBLER INSTALLER STRUCTURES] ) Near Vision Right Eye : With glasses - primary, J-3 (Comment: -2 [NATALIYA MCNAIRNA Tom - 09/22/2012 10:22 ASSEMBLER INSTALLER STRUCTURES] ) Near Vision Left Eye : With glasses - primary, J-1 NATALIYA MCNAIRNA Tom - 09/22/2012 10:22 ASSEMBLER INSTALLER STRUCTURES Refraction Current Glasses Rx Grid Glasses/RE Glasses/LE Sphere : -3.00 -3.00 Prism : 1/2 BASE UP XUNATALIYAMARYELLEN Santos - 09/22/2012 10:22 ASSEMBLER INSTALLER STRUCTURES XUNATALIYANA Tom - 09/22/2012 10:22 ASSEMBLER INSTALLER STRUCTURES Right Eye Manifest Grid Date : 09/22/2012 ASSEMBLER INSTALLER STRUCTURES Performed by : MoveEZ Sphere : -3.50 Visual Acuity Distance : 20/20 Visual Acuity Near : 20/20 XUNATALIYAMARYELLEN Santos - 09/22/2012 10:22 ASSEMBLER INSTALLER STRUCTURES Left Eye Manifest Grid Date : 09/22/2012 ASSEMBLER INSTALLER STRUCTURES Performed by : Tech Sphere : -3.50 Visual Acuity Distance : 20/20 Visual Acuity Near : 20/20 XUNATALIYAMARYELLEN Santos - 09/22/2012 10:22 ASSEMBLER INSTALLER STRUCTURES Ocular Testing EOMS : Normal Comment : 6 TO 3 6 TO 3 -MG Pupils : PERRLA Confrontation Lea : RE Normal, LE Normal NATALIYA MCNAIRNA Tom - 09/22/2012 10:22 ASSEMBLER INSTALLER STRUCTURES Eye Drops Exam Date of Last Eye Exam : 09/22/2012 ASSEMBLER INSTALLER STRUCTURES Child Mix Eye Drop Eye : Both eyes Child Mix Eye Drop Amount : One drop Child Mix Eye Drop Time : 10:43 ASSEMBLER INSTALLER STRUCTURES Child Mix Eye Drop Comment : PERMISSION GIVEN BY MOTHER. NATALIYA MCNAIRNA Tom - 09/22/2012 10:22 ASSEMBLER INSTALLER STRUCTURES Source: [facility] POWERCHART Document Id: [id number] MBLER INSTALLER STRUCTURES documented in this encounter H&P Notes Ping Rosario M.D. - 09/22/2012 10:01 AM CST [id number] Very pleasant patient who comes in today with myopia and hyperopia with headache. IMPRESSION / REPORT / PLAN We will see her back in 1 year, sooner if there are difficulties or problems. Everything appears to be doing very, very good. We will see her sooner if there are any difficulties or problems. Ping Rosario M.D./arnold DOCID: [id number] Electronically Signed By: PING ROSARIO MD On: 09/27/2012 07:52 AM Source: [facility] MHSDOLBEYNKAYLASYS Document Id: [id number] MBLER INSTALLER STRUCTURES documented in this encounter Miscellaneous Notes Miscellaneous - Ping Rosario M.D. - 09/22/2012 11:20 AM CST Ambulatory Patient Summary [facility] [address] [place] [address] Visit Information Name: AMAIRANI MARTINEZ [facility] Number: [id number] Current Date: 09/22/2012 11:20:46 Physicians [...] No Appointments found Your Goals/Additional instructions: Source: [facility] POWERCHART Document Id: [id number] MBLER INSTALLER STRUCTURES Miscellaneous - Ping Rosario M.D. - 09/22/2012 11:20 AM CST Ambulatory Depart Summary [facility] [address] [place] [address] Visit Information Name: AMAIRANI MARTINEZ [facility] Number: [id number] Visit Date: 09/22/2012 11:20:45 Attending [...] clarification. Additional Information: Yes - . Source: [facility] POWERCHART Document Id: [id number] MBLER INSTALLER STRUCTURES documented in this encounter Plan of Treatment Not on filedocumented as of this encounter Visit Diagnoses Not on filedocumented in this encounter
--- OUTSIDE RECORDS SUMMARY | 2022-05-14 18:45 | XMS_ITS | Encounter Summary ---
:2000 Author Organization [facility] Address [address] [place] [address] Care Team Providers Name Role Phone Unavailable Primary Care Provider Unavailable Encounter Details Date Type Department Care Team Description 02/15/2012 Hospital Encounter HX [facility] Tom Wellington M.D. [address] [place], [place] [address] (Wo rk) 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 Tobacco [...] Wellington M.D. - 02/15/2012 12:00 AM CDT [id number] CHIEF COMPLAINT/REASON FOR VISIT Ear pain HISTORY [...] [place] MD On: 02/17/2012 08:47 AM Source: [facility] MHSDOLBEYNONRADSYS Document Id: [id number] documented in this encounter Miscellaneous Notes Miscellaneous - Venus Wellington M.D. - 02/15/2012 10:41 AM CDT Ambulatory Patient Summary [address] [address] Visit Information Name: AMAIRANI MARTINEZ Current Date: [...] No Appointments found Your Goals/Additional instructions: Source: [facility] POWERCHART Document Id: [id number] Miscellaneous - Venus Wellington M.D. - 02/15/2012 10:41 AM CDT Ambulatory Depart Summary [place] [address] [facility] [place] [address] Visit Information Name: AMAIRANI MARTINEZ Visit Date: [...] your provider for clarification. Additional Information: [facility] Document Id: [id number] Miscellaneous - Nikki Pisano - 02/15/2012 10:29 AM CDT Pediatric Security Support Analyst Intake/History Pediatric Security Support Analyst Intake/History Entered On: 02/15/2012 10:31 CDT Performed [...] NIKKI UMANA; Reviewed Date: 02/15/201210:28 CDT [facility] Document Id: [id number] documented in this encounter Plan of Treatment Not on filedocumented as of this encounter Visit Diagnoses Not on filedocumented in this encounter
--- OUTSIDE RECORDS SUMMARY | 2022-05-14 18:45 | XMS_ITS | Encounter Summary ---
:2000 Author Organization [facility] Address [address] [place] [address] Care Team Providers Name Role Phone Unavailable Primary Care Provider Unavailable Encounter Details Date Type Department Care Team Description 04/21/2010 Hospital Encounter [facility] Tom Peoples M.D. [address] [place], [place] [address] (Wo rk) 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 Tobacco [...] Peoples M.D. - 04/21/2010 12:00 AM CDT [id number] CHIEF COMPLAINT/REASON FOR VISIT Persistent ear infection. [...] prescribed Claritin, but insurance does not cover nfza-ydx-mfmimjx medications and they have not been able to get that yet. CURRENT MEDICATIONS Post-visit Medication Reconciliation 1. Cefdinir 250 mg per 5 ml, 10 ml p.o. once daily x10 days. 2. Qamh-zuj-gkmgzzp Loratadine or Cetirizine p.o. p.r.n. allergies. ALLERGIES [...] otic drops. KSL/glt Signed Venus Peoples M.D. Caramel Candy Maker Electronically Signed By:VENUS PEOPLES MD On 04/27/2010 11:37 am Source: [facility] MHSDOLBEYNONRADSYS Document Id: [id number] documented in this encounter Miscellaneous Notes Miscellaneous - Chantell Sandoval - 04/21/2010 3:33 PM CDT Pediatric Pressing Machine Tender Intake/History Pediatric Pressing Machine Tender Intake/History Entered On: 04/21/2010 15:36 CDT Performed [...] CHANTELL UMANA; Reviewed Date: 04/21/201015:33 CDT [facility] Document Id: [id number] CDT!16 documented in this encounter Plan of Treatment Not on filedocumented as of this encounter Visit Diagnoses Not on filedocumented in this encounter
--- OUTSIDE RECORDS SUMMARY | 2022-05-14 18:45 | XMS_ITS | Encounter Summary ---
:2000 Author Organization [facility] Address [address] [place] [address] Care Team Providers Name Role Phone Unavailable Primary Care Provider Unavailable Encounter Details Date Type Department Care Team Description 07/06/2011 Hospital Encounter [facility] Tom Peoples M.D. [address] [place], [place] [address] (Wo rk) 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 Tobacco [...] (91 lb 0.8 oz) 07/06/2011 1:40 PM MEN'S LOCKER ROOM ATTENDANT Height 148.6 cm (4' 10.5) 07/06/2011 1:40 PM MEN'S LOCKER ROOM ATTENDANT Body Mass Index 18.7 07/06/2011 1:40 PM MEN'S LOCKER ROOM ATTENDANT Body Mass Index Percentile 68.89 % 07/06/2011 1:40 PM CS T Growth Chart: CDC (Girls, 2-20 Years) documented in this encounter Progress Notes Venus Peoples M.D. - 07/06/2011 12:00 AM CST [id number] CHIEF COMPLAINT/ REASON FOR VISIT Fever and [...] more time. KSL/glt Signed Venus Peoples M.D. Sql Application Developer Electronically Signed By: VENUS PEOPLES MD On: 07/08/2011 01:55 PM Source: [facility] MHSDOLBEYNONRADSYS Document Id: [id number] 'S LOCKER ROOM ATTENDANT documented in this encounter Miscellaneous Notes Miscellaneous - Venus Peoples M.D. - 07/06/2011 1:59 PM CST Ambulatory Patient Summary [address] [address] Visit Information Name: AMAIRANI MARTINEZ Current Date: [...] No Appointments found Your Goals/Additional instructions: Source: [employer] Document Id: [id number] 'S LOCKER ROOM ATTENDANT Miscellaneous - Venus Peoples M.D. - 07/06/2011 1:59 PM CST Ambulatory Depart Summary [address] [address] Visit Information Name: DONYA AMAIRANICHESTER NICOLELENNIE Current [...] Oral once a day Additional Information: Source: [employer] Document Id: [id number] 'S LOCKER ROOM ATTENDANT Miscellaneous - Chantell Sandoval - 07/06/2011 1:40 PM CST Pediatric Guest Specialist Intake/History Pediatric Guest Specialist Intake/History Entered On: 07/06/2011 13:43 MEN'S LOCKER ROOM ATTENDANT Performed On: 07/06/2011 13:40 MEN'S LOCKER ROOM ATTENDANT by CHANTELL UMANA Intake Chief Complaint : [...] : 18.70kg/m2 CHANTELL UMANA - 07/06/2011 13:40 MEN'S LOCKER ROOM ATTENDANT Subjective Pain Symptoms : No CHANTELL UMANA - 07/06/2011 13:40 MEN'S LOCKER ROOM ATTENDANT Dependent Habits Tobacco Use/Currently Using : No Smoking Status : Never smoker CHANTELL UMANA - 07/06/2011 13:40 MEN'S LOCKER ROOM ATTENDANT Allergy Allergies (Active) NKA Estimated Onset Date: Unspecified ; Created By: CHANTELL UMANA; Reaction Status: Active ; Category: Drug ; Substance: NKA ; Type: Allergy ; Updated By: CHANTELL UMANA; Reviewed Date: 07/06/201113:39 MEN'S LOCKER ROOM ATTENDANT Source: [facility] POWERCHART Document Id: [id number] MEN'S LOCKER ROOM ATTENDANT!21 'S LOCKER ROOM ATTENDANT documented in this encounter Plan of Treatment Not on filedocumented as of this encounter Visit Diagnoses Not on filedocumented in this encounter
--- OUTSIDE RECORDS SUMMARY | 2022-05-14 18:45 | XMS_ITS | Encounter Summary ---
:2000 Author Organization [facility] Address [address] [place] [address] Care Team Providers Name Role Phone Unavailable [...] (80 lb 0.4 oz) 06/18/2010 3:28 PM MISSILE FACILITIES REPAIRER Height - - Body Mass Index - - documented in this encounter Progress Notes Conversion, Historical Provider Ser - 06/18/2010 12:00 AM CST [id number] IMPRESSION/REPORT/PLAN 1. Resolving otitis media of the [...] II, M.D. ENT CC: Amanda Peoples M.D. Bottom Buffer [address] [place] [address] Electronically Signed By:JORDYN KNIGHT II, MD On 06/23/2010 02:53 pm Modified by:JORDYN KNIGHT II, MD On 06/23/2010 02:53 pm Source: [facility] MHSDOLBEYNONRADSYS Document Id: [id number] documented in this encounter Miscellaneous Notes Miscellaneous - Conversion, Historical Provider Ser - 06/18/2010 3:28 PM MISSILE FACILITIES REPAIRER Pediatric Sister Superior Intake/History Pediatric Sister Superior Intake/History Entered On: 06/18/2010 15:29 MISSILE FACILITIES REPAIRER Performed On: 06/18/2010 15:28 MISSILE FACILITIES REPAIRER by MIESHA ALLISON LPN Intake Chief Complaint: Post-op Temperature Core: 36.4C(Converted to: 97.5DegF) (LOW) Systolic Blood Pressure: 110mmHg Diastolic Blood Pressure: 60mmHg NIBP Mean: 77mmHg BP Location: Right upper extremity Actual Weight: 36.300kg(Converted to: 80lb 0oz) Dosing Weight Clinic: 36.30kg MIESHA ALLISON LPN - 06/18/2010 15:28 MISSILE FACILITIES REPAIRER Subjective Pain Symptoms: No MIESHA ALLISON LPN - 06/18/2010 15:28 MISSILE FACILITIES REPAIRER Dependent Habits Tobacco Use/Currently Using: No MIESHA ALLISON LPN - 06/18/2010 15:28 MISSILE FACILITIES REPAIRER Allergy Allergies (Active) NKA Estimated Onset Date: Unspecified ; Created By: CHANTELL UMANA; Reaction Status: Active ; Category: Drug ; Substance: NKA ; Type: Allergy ; Updated By: CHANTELL UMANA; Reviewed Date: 06/18/201015:27 MISSILE FACILITIES REPAIRER Source: [facility] POWERCHART Document Id: [id number] MISSILE FACILITIES REPAIRER!14 documented in this encounter Plan of Treatment Not on filedocumented as of this encounter Visit Diagnoses Not on filedocumented in this encounter
--- OUTSIDE RECORDS SUMMARY | 2022-05-14 18:45 | XMS_ITS | Encounter Summary ---
:2000 Author Organization [facility] Address [address] [place] [address] Care Team Providers Name Role Phone Unavailable Primary Care Provider Unavailable Encounter Details Date Type Department Care Team Description 05/04/2010 Hospital Encounter [facility] Tom Peoples M.D. [address] [place], [place] [address] (Wo rk) 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 Tobacco [...] Peoples M.D. - 05/04/2010 12:00 AM CDT [id number] CHIEF COMPLAINT/REASON FOR VISIT Continued ear drainage. [...] for 05/14/2010. KSL/sks Signed Venus Peoples M.D. Retail General Manager Electronically Signed By:VENUS PEOPLES MD On 05/07/2010 04:01 pm Source: [facility] MHSDOLBEYNONRADSYS Document Id: [id number] documented in this encounter Miscellaneous Notes Miscellaneous - Chantell Sandoval - 05/04/2010 10:42 AM CDT Pediatric Cash Register Balancer Intake/History Pediatric Cash Register Balancer Intake/History Entered On: 05/04/2010 10:44 CDT Performed [...] CHANTELL UMANA; Reviewed Date: 04/21/201015:33 CDT Source: [employer] Document Id: [id number] CDT!16 documented in this encounter Plan of Treatment Not on filedocumented as of this encounter Visit Diagnoses Not on filedocumented in this encounter
--- OUTSIDE RECORDS SUMMARY | 2022-05-14 18:45 | XMS_ITS | Encounter Summary ---
:2000 Author Organization [facility] Address [address] [place] [address] Care Team Providers Name Role Phone Unavailable Primary Care Provider Unavailable Encounter Details Date Type Department Care Team Description 01/28/2012 Hospital Encounter HX [facility]ED[facility] Tom Peoples M.D. [address] [place], [place] [address] (Wo rk) 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 Tobacco [...] Peoples M.D. - 01/28/2012 12:00 AM CDT [id number] CHIEF COMPLAINT/REASON FOR VISIT 11-year-old well-child visit [...] On: 02/03/2012 03:20 PM Source: [facility] MHSDOLBEYNONRADSYS Document Id: [id number] documented in this encounter Procedure Notes Chantell [...] CHANTELL PISANO - 01/28/2012 15:27 CDT Source: [employer] Document Id: [id number] Chantell Pisano - 01/28/2012 3:22 PM CDT Vision Testing Vision Testing Entered On: 01/28/2012 15:23 CDT Performed On: 01/28/2012 15:22 CDT by CHANTELL PISANO Vision Testing Corrective Lenses : Glasses Eye, Right with Correction : 20/25 Eye, Left w/Correction : 20/30 CHANTELL PISANO - 01/28/2012 15:22 CDT Source: [employer] Document Id: [id number] documented in this encounter Miscellaneous Notes Miscellaneous - Venus Peoples M.D. - 01/28/2012 3:48 PM CDT Ambulatory Patient Summary [address] [address] Visit Information Name: AMAIRANI MARTINEZ Current Date: [...] found Your Goals/Additional instructions: Source: [facility] POWERCHART Document Id: [id number] Miscellaneous - Venus Peoples M.D. - 01/28/2012 3:48 PM CDT Ambulatory Depart Summary [id number] [place] [address] Visit Information Name: AMAIRANI MARTINEZ Visit Date: [...] for clarification. Additional Information: Source: [facility] POWERCHART Document Id: [id number] Miscellaneous - Chantell Pisano - 01/28/2012 3:20 PM CDT Pediatric Supervisor Pipeline Maintenance Intake/History Pediatric Supervisor Pipeline Maintenance Intake/History Entered On: 01/28/2012 15:22 CDT Performed [...] Reviewed Date: 01/28/201215:20 CDT Source: [facility] POWERCHART Document Id: [id number] documented in this encounter Plan of Treatment Not on filedocumented as of this encounter Visit Diagnoses Not on filedocumented in this encounter
--- OUTSIDE RECORDS SUMMARY | 2022-05-14 18:45 | XMS_ITS | Encounter Summary ---
:2000 Author Organization [facility] Address [address] [place] [address] Care Team Providers Name Role Phone Unavailable [...] Provider Ser - 05/14/2010 12:00 AM CDT [id number] IMPRESSION/REPORT/PLAN 1. Chronic suppurative otitis media of [...] of the hearing and gross clinical speech reception clerk thresholds are at least close to being [...] limits. The tongue is within normal limits. Lolo's and Stensen's ducts are within normal limits [...] II, M.D. ENT CC: Amanda Peoples M.D. Heel Former [address] [place] [address] Electronically Signed By:JORDYN KNIGHT On 05/19/2010 11:26 am Modified by:JORDYN KNIGHT On 05/19/2010 11:26 am Source: [facility] MHSDOLBEYNONRADSYS Document Id: [id number] documented in this encounter Nursing Notes Conversion, Historical Provider Ser - 05/19/2010 10:57 AM CDT ENT Surgery Examine and clean ears, and removal (L) ear tube scheduled for 05/28/10 at [facility] with Dr. Knight. Insurance referral completed. No prior authorization is required per [facility] policy. Electronically Signed By:MIESHA ALLISON LPN On 05/19/2010 10:59 am Source: [facility] [employer] Document Id: [id number] documented in this encounter Miscellaneous Notes Miscellaneous - Conversion, Historical Provider Ser - 05/14/2010 2:20 PM CDT Pediatric Jumpbasting Collar Baster Intake/History Pediatric Jumpbasting Collar Baster Intake/History Entered On: 05/14/2010 14:22 CDT Performed [...] Onset Date: Unspecified ; Created By: CHANTELL MUANA; Reaction Status: Active ; Category: Drug ; Substance: NKA ; Type: Allergy ; Updated By: CHANTELL UMANA; Reviewed Date: 05/14/201014:19 CDT Source: [facility] [employer] Document Id: [id number] CDT!14 documented in this encounter Plan of Treatment Not on filedocumented as of this encounter Visit Diagnoses Not on filedocumented in this encounter
[2022-05-14 23:08] LABS: Chlamydia DNA Amplified* NOT DETECTED (No Detected); GC DNA Amplified* NOT DETECTED (No Detected)
== END 2022-05-14 18:26 | disposition home or self-care (01) ==
PROVIDERS: PCP Family Medicine; Visit Provider Student in an Organized Health Care Education/Training Program
DX: N76.0 Acute vaginitis (principal)
CPT/HCPCS: 87086; 87491; 87591

== ENCOUNTER 2022-07-19 14:51 | Outpatient (CLI) | payer OTHER, MEDICAID, SELFPAY ==
--- OUTSIDE RECORDS SUMMARY | 2022-07-19 14:54 | XMS_ITS | Encounter Summary ---
:2000 Author Organization [facility] Address [address] [place] [address] Care Team Providers Name Role Phone Unavailable Primary Care Provider Unavailable Encounter Details Date Type Department Care Team Description 07/23/2016 Hospital Encounter HX NO MAPPING Mireya Baugh M.D. [address] [place], [place] [phone] (Wo rk) 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 Tobacco Use Types Packs/Day Years Used Date Smoking Tobacco: Never Assessed Sex Assigned at Date Recorded Not on file documented as of this encounter Miscellaneous Notes Miscellaneous - Conversion, Historical Provider Ser - 07/23/2016 11:59 PM [employer] Coding Summary-Paper Based CODING DATE: 08/04/2016 FINAL [facility] STATUS: * Discharged to Home or Self Care PAYOR: [facility] ADMIT DX: REASON FOR VISIT DX: FINAL DX: PRINCIPAL: R35.0 Frequency of micturition SECONDARY: PROCEDURES DOCTOR NAME DATE NOTE: The code number assigned matches the documented diagnosis and / or procedure in the patient's chart. However, the narrative phrase printed from the coding software may appear abbreviated, or result in slightly different terminology. Coded By: ORIANA RAMOS Date Saved: 08/04/2016 04:34 pm [facility] Document Id: [id number] documented in this encounter Plan of Treatment Not on filedocumented as of this encounter Visit Diagnoses Not on filedocumented in this encounter Additional Health Concerns Assessment Noted Time PHQ-9 Depression Total Score: 1 04/22/2014 12:46 PM CD T documented as of this encounter
--- OUTSIDE RECORDS SUMMARY | 2022-07-19 14:54 | XMS_ITS | Encounter Summary ---
:2000 Author Organization [facility] Address [address] [place] [address] Care Team Providers Name Role Phone Unavailable Primary Care Provider Unavailable Encounter Details Date Type Department Care Team Description 07/23/2016 Hospital Encounter HX [facility] Marley Solorzano M.D. [address] [place], [place] [phone] (Wo rk) 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 [...] (127 lb 10.3 oz) 07/23/2016 3:13 PM CERTIFIED SURGICAL TECHNICIAN Height 161.5 cm (5' 3.58) 07/23/2016 3:13 PM CERTIFIED SURGICAL TECHNICIAN Body Mass Index 22.2 07/23/2016 3:13 PM CERTIFIED SURGICAL TECHNICIAN Body Mass Index Percentile 70.10 % 07/23/2016 3:13 PM CS T Growth Chart: CDC (Girls, 2-20 Years) documented in this encounter Progress Notes Marley Blair M.D. - 07/23/2016 2:45 PM CST [id number] CHIEF COMPLAINT/ REASON FOR VISIT Dysuria. HISTORY OF PRESENT ILLNESS Amairani is a 15 year old female who presents to the clinic today for dysuria. For the last couple days she has been having difficulty with burning with urination. It has gotten so bad that Amairani johnson has tried to avoid urinating. She noticed [...] their behalf by Shayy Tipton, a trained certified medical asst. The creation of this record is based on the scribe's personal observations and the provider's statements to them. This document has been thomas cked and approved by the attending provider. Marley Roberson M.D./niko Electronically Signed By: MARLEY BLAIR MD On: 08/07/2016 08:26 PM Source: [facility] MHSDOLBEYNONRADSYS Document Id: [id number] IFIED SURGICAL TECHNICIAN documented in this encounter Miscellaneous Notes Miscellaneous - Marley Blair M.D. - 07/28/2016 9:10 AM CERTIFIED SURGICAL TECHNICIAN Custom Result Letter July 28, 2016 AMAIRANI MARTINEZ [address] [facility] [id number] Dear AMAIRANI MARTINEZ, Chlamydia test is negative Result Name Current Result Chlamydia DNA Probe Review 07/23/2016 GC by Nucleic Acid Amplification 07/23/2016 Sincerely, MARLEY ROBERSON [address] [place] [address] Electronic Signature Electronically Signed By: MARLEY BLAIR MD On: July 28, 2016 This document has images extracted. Source: [facility] POWERCHART Document Id: [id number] Electronically signed by [facility]ast[facility] Religious Education Director [id number] at 01/02/2017 10:58 AM CDT Miscellaneous - Marley Blair M.D. - 07/23/2016 7:46 PM CERTIFIED SURGICAL TECHNICIAN Ambulatory Patient Summary [address] [id number] Visit Information Name: AMAIRANI MARTINEZ [facility] Number: [id number] Current Date: 07/23/2016 19:46:28 Physicians Attending Provider: MARLEY BLAIR MD Primary Care Provider: SHAYY HERNANDEZ MD [...] day x 7 day(s) New Routed to [address] [address] sulfamethoxazole-trimethoprim (Bactrim DS 800 mg-160 mg oral tablet) 1 Tablet(s), Oral, two times a day x 5 day(s) New Routed to [address] [address] Stop Taking the Following Medications: [...] case of emergency. Electronically Signed By: MARLEY BLAIR MD Signed On:23-JUL-2016 19:46:15 Your Allergies & [...] if you dont have one. Go to [email or web address] and click on Create Your Account. Then, follow the directions to complete the online form. Youll be asked for your [facility] number which you can find at the top of this document. Your Goals/Additional instructions: Source: [facility] POWERCHART Document Id: [id number] IFIED SURGICAL TECHNICIAN Miscellaneous - Marley Blair M.D. - 07/23/2016 7:46 PM CERTIFIED SURGICAL TECHNICIAN Ambulatory Discharge Medication List [address] [id number] Visit Information Name: DONYA AMAIRANICHESTER MOBLEY [facility] Number: [id number] Current Date: 07/23/2016 19:46:27 Attending Provider: MARLEY BLAIR MD Primary Care Provider: SHAYY HERNANDEZ MD DONYAINESSAAMAIRANICHESTER MOBLEY has been given the following list [...] day x 7 day(s) New Routed to [facility] [address] [place] [address] sulfamethoxazole-trimethoprim (Bactrim DS 800 mg-160 mg oral tablet) 1 Tablet(s), Oral, two times a day x 5 day(s) New Routed to [facility] [address] [place], [place] [id number] Stop Taking the Following Medications: Medication list [...] case of emergency. Electronically Signed By: MARLEY BLAIR MD Signed On:23-JUL-2016 19:46:15 Additional Information: Source: [facility] Stampsy Document Id: [id number] IFIED SURGICAL TECHNICIAN Miscellaneous - Marley Blair M.D. - 07/23/2016 7:42 PM CERTIFIED SURGICAL TECHNICIAN Addendum by RUBIO SYLVESTER CMA on July 26, 2016 10:46:32 CERTIFIED SURGICAL TECHNICIAN Spoke with: ( _ ) Patient ( [...] language for Healthcare discussion: _ Was an director behavioral health used for this call? _ Other ( --_ ) From: MARLEY BLAIR MD To: FADI Gaona Nurse; Sent: 07/23/2016 19:42:24 CERTIFIED SURGICAL TECHNICIAN Please notify Amairani that she has a vaginal infection. I sent rx for metronidazole to the pharmacy.One pill twice daily for seven days. No alcohol. Source: [facility] POWERCHART Document Id: [id number] Electronically signed by Anastasia [facility] Religious Education Director [id number] at 01/02/2017 10:58 AM CDT Miscellaneous - Araceli Montana L.P.N. - 07/23/2016 3:13 PM CST Pediatric Construction Job Cost Estimator Intake/History Pediatric Construction Job Cost Estimator Intake/History Entered On: 07/23/2016 15:35 CERTIFIED SURGICAL TECHNICIAN Performed On: 07/23/2016 15:13 CERTIFIED SURGICAL TECHNICIAN by ARACELI MONTANA SPOOLER OPERATOR Intake Chief Complaint : burning with [...] Body Mass Index : 22.2 kg/m2 ARACELI MONTANA [facility] - 07/23/2016 15:13 CERTIFIED SURGICAL TECHNICIAN General Info Mode of Arrival : Ambulatory Present in Room During Exam/Procedure : Alone Information Given By : Patient Languages : Turkish Is Patient Female and 13-50 no hysterectomy : Yes Status : Patient denies Are you ? : No ARACELI MONTANA SPOOLER OPERATOR - 07/23/2016 15:13 CERTIFIED SURGICAL TECHNICIAN Subjective Pain Symptoms : No ARACELI MONTANA LPN - 07/23/2016 15:13 CERTIFIED SURGICAL TECHNICIAN Dependent Habits Exposure to Tobacco Smoke : Care provider denies smoking in home Smoking Status : Never smoker Tobacco 2A : No Tobacco Use/Currently Using : No Tobacco Use/Last 30 Days : No Tobacco Use/Last 12 months : No ARACELI MONTANA LPN - 07/23/2016 15:13 CERTIFIED SURGICAL TECHNICIAN Source: [facility] POWERCHART Document Id: [id number] CERTIFIED SURGICAL TECHNICIAN!36 IFIED SURGICAL TECHNICIAN documented in this encounter Plan of Treatment Not on filedocumented as of this encounter Procedures Procedure Name Priority Date/Time Associated Comments Diagnosis URINALYSIS WITH Routine 07/23/2016 4:10 PM Result s for this MICROSCOPIC CERTIFIED SURGICAL TECHNICIAN procedure are i n the results section. BACTERIAL CULTURE, Routine 07/23/2016 4:10 PM Res ults for this AEROBIC, URINE CERTIFIED SURGICAL TECHNICIAN procedure are in the results section. TEST, U Routine 07/23/2016 4:10 PM Resu lts for this CERTIFIED SURGICAL TECHNICIAN procedure are i n the results section. VAGINITIS BATTERY, Routine 07/23/2016 3:54 PM Res ults for this DNA (GENITAL) CERTIFIED SURGICAL TECHNICIAN procedure are in the results section. CHLAMYDIA/GONORRHOEAE Routine 07/23/2016 3:54 PM Results for this AMPLIFIED RNA CERTIFIED SURGICAL TECHNICIAN procedure are in the results section. CHLAMYDIA TRACHOMATIS Routine 07/23/2016 3:54 PM Results for this AMPLIFIED RNA CERTIFIED SURGICAL TECHNICIAN procedure are in the results section. documented in this encounter Results (ABNORMAL) Urinalysis, Complete, Includes Microscopic (07/23/2016 4:10 PM CERTIFIED SURGICAL TECHNICIAN) [facility] Method Time Signature Clarity Cloudy (A) Clear POWERCHART HXUr Color Yellow Colorless POWERCHART Specific 1.020 POWERCHART [place], POCT, U Comment: Reference Range Specific [place]: 1.000-1.035 pH, POCT, Urine 7.5 <5.0 POWERCHART [...] Laterality Urine, First 07/23/2016 4:10 PM Voided CERTIFIED SURGICAL TECHNICIAN Marley Baugh M.D. LAB URINE ORDERABLES Performing Organization Address City/[facility]/ZIP Code Phon e Number POWERCHART (ABNORMAL) Bacterial Culture, Aerobic, Urine (07/23/2016 4:10 PM CERTIFIED SURGICAL TECHNICIAN) Analysis Performed At Patho logist Time Signature Bacterial SA <=0.5 POWERCHART Culture, (POSITIVE) Aerobic, Urine HXPre [facility] POWERCHART Comment: >100,000 cfu/mL Gram Positive Cocci Presumptive Staphylococcus aureus HXFinal SA POWERCHART Comment: >100,000 cfu/mL Staphylococcus aureus Specimen (Source) Anatomical Collection Method Collection Time Re ceived Time Location / / Volume Laterality Urine, First 07/23/2016 4:10 PM Voided CERTIFIED SURGICAL TECHNICIAN Organism Antibiotic Method Susceptibility Staphylococcus aureus Ciprofloxacin [...] POWERCHART Test, Qualitative, Urine (07/23/2016 4:10 PM CERTIFIED SURGICAL TECHNICIAN) [facility] Method Time Signature HXBeta-hCG Negative POWERCHART Qualitative Urine Specimen Anatomical Collection Method Collection Time Receive d Time (Source) Location / / Volume Laterality Urine 07/23/2016 4:10 PM 6 4:28 CERTIFIED SURGICAL TECHNICIAN PM CERTIFIED SURGICAL TECHNICIAN Marley Baugh M.D. LAB URINE ORDERABLES Performing Organization Address City/State/ZIP Code Phon e Number POWERCHART Chlamydia / Gonorrhoeae Amplified RNA (07/23/2016 3:54 PM CERTIFIED SURGICAL TECHNICIAN) Component Value Ref Test Analysis Performed At [facility] Range Method Time Signature HX GC by Nucleic POWERCHART Acid Amplification HXFinal Negative for POWERCHART Neisseria gonorrhea by RNA amplification . HXFinal Reference: POWERCHART Negative HXFinal If you POWERCHART submitted a female urine sample, please note it is a Laboratory Developed Test. Specimen (Source) Anatomical Collection Method Collection Time Re ceived Time Location / / Volume Laterality Vagina 07/23/2016 3:54 PM CERTIFIED SURGICAL TECHNICIAN Marley Baugh M.D. LAB MICROBIOLOGY - GEN ERAL ORDERABLES Performing Organization Address [facility] Code Phon e Number POWERCHART Chlamydia Trachomatis Amplified RNA (07/23/2016 3:54 PM CERTIFIED SURGICAL TECHNICIAN) Component Value Ref Test Analysis Performed At [facility] Method Time Signature HXChlamydia by POWERCHART Nucleic Acid Amplification HXFinal Negative for POWERCHART Chlamydia trachomatis by RNA amplification. HXFinal Reference: POWERCHART Negative HXFinal If you POWERCHART submitted a female urine sample, please note it is a Laboratory Developed Test. Specimen (Source) Anatomical Collection Method Collection Time Re ceived Time Location / / Volume Laterality Vagina 07/23/2016 3:54 PM CERTIFIED SURGICAL TECHNICIAN Marley Baugh M.D. LAB MICROBIOLOGY - GEN ERAL ORDERABLES Performing Organization Address City/State/ZIP Code Phon e Number POWERCHART (ABNORMAL) VAGINITIS BATTERY, DNA (GENITAL) (07/23/2016 3:54 PM CERTIFIED SURGICAL TECHNICIAN) Component Value Ref Test Analysis Performed At [facility] Range Method Time Signature HXVaginitis (POSITIVE) POWERCHART Battery, DNA (Genital) HXFinal Trichomonas POWERCHART vaginalis DNA negative HXFinal Gardnerella POWERCHART vaginalis DNA positive HXFinal Paige species POWERCHART DNA negative HXFinal Reference: POWERCHART Negative Specimen (Source) Anatomical Collection Method Collection Time Re ceived Time Location / / Volume Laterality Vagina 07/23/2016 3:54 PM CERTIFIED SURGICAL TECHNICIAN Marley Baugh M.D. LAB HISTORICAL ORDERS Performing Organization Address City/State/ZIP Code Phon e Number POWERCHART documented in this encounter Visit Diagnoses Not on filedocumented in this encounter Additional Health Concerns Assessment Noted Time PHQ-9 Depression Total Score: 1 04/22/2014 12:46 PM CD T documented as of this encounter
--- OUTSIDE RECORDS SUMMARY | 2022-07-19 14:54 | XMS_ITS | Encounter Summary ---
:2000 Author Organization [facility] Address [address] [place] [address] Care Team Providers Name Role Phone Elsewhere, Pcp Primary Care Provider Unavailable Reason for Visit Reason Onset Date Comments Outpatient COVID-19 Testing 12/17/2020 Encounter Details Date Type Department Care Team Description 12/17/2020 External Outreach Department of Family Juan Ag Contact With And Medicine, [facility] Jac Alba D.O. (Suspected) Exposure Building, in [address] COVID-19 (Primary [place], [place] Dx) [address] [facility] [address] [place], [place] [phone] [address] (Work) [phone] 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 Tobacco Use Types Packs/Day Years Used Date Smoking Tobacco: Never Sex Assigned at Date Recorded Not on file documented as of this encounter Progress Notes Zoraida See R.N. - 12/17/2020 1:19 PM CDT Encounter [...] RNA, V Asymptomatic (12/18/2020 10:44 AM CDT) [facility] Method Time Signature SARS-CoV-2 Swab, 12/19/2020 MKTO [...] pe rformed using the Aptima SARS-CoV-2 assay ([employer] on the Guarant[employer]s tem under emergency use authorization (EUA) by the U.S. Food and Drug Administ ration. Fact sheets for this EUA assay can be fo und at the following links: For Healthcare Providers: https://www.fd a.gov/media/429641/download For Patients: https://www.fda.gov/media/ 734223/download Specimen Anatomical Collection Method Collection Time Receive d Time (Source) Location / / Volume Laterality Varies 12/18/2020 10:44 12/18/2020 3:01 (Nasopharynx) AM CDT PM CDT Juan Ag D.O. LAB MICROBIOLOGY - GENERAL O DEJAN Performing Organization Address City/State/ZIP Code Phon e Number [facility]- [address] [place] [phone] [place] [address] [place] [address] System in [address] documented in this encounter Visit Diagnoses Diagnosis Contact With And (Suspected) Exposure To COVID-19 - Primary documented in this encounter Additional Health Concerns Infection Onset Date Last Indicated Resolved Time COVID19 Pending 12/17/2020 12/18/2020 12/19/2020 12:13 AM CDT documented as of this encounter Care Teams Patient Accounts Manager Relationship Specialty Start Date End Date Elsewhere, Pcp PCP - General 03/07/20 documented as of this encounter
--- OUTSIDE RECORDS SUMMARY | 2022-07-19 14:54 | XMS_ITS | Encounter Summary ---
:2000 Author Organization [facility] Address [address] [place] [address] Care Team Providers Name Role Phone Unavailable Primary Care Provider Unavailable Encounter Details Date Type Department Care Team Description 09/23/2014 Hospital Encounter HX [facility] Tha Mccrary M.D. [address] [place] [phone] (wo rk) 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 Tobacco Use Types Packs/Day Years Used Date Smoking Tobacco: Never Assessed Sex Assigned at Date Recorded Not on file documented as of this encounter Miscellaneous Notes Miscellaneous - Gentry Cruz M.D. - 09/23/2014 9:47 AM CST Ambulatory Patient Summary [facility] [address] [place] [id number] Visit Information Name: AMAIRANI MARTINEZ [facility] [...] appointment detail needed. Your Goals/Additional instructions: Source: [facility] POWERSmartBIM Document Id: [id number] RINTENDENT DISTRIBUTION Miscellaneous - Gentry Cruz M.D. - 09/23/2014 9:47 AM CST Ambulatory Discharge Medication List [address] [id number] Visit Information Name: AMAIRANI MARTINEZ [facility] [...] MD Signed On:23-SEP-2014 09:47:56 Additional Information: Source: [facility] POWERCHART Document Id: [id number] RINTENDENT DISTRIBUTION documented in this encounter Plan of Treatment Not on filedocumented as of this encounter Visit Diagnoses Not on filedocumented in this encounter Additional Health Concerns Assessment Noted Time PHQ-9 Depression Total Score: 1 04/22/2014 12:46 PM CD T documented as of this encounter
--- OUTSIDE RECORDS SUMMARY | 2022-07-19 14:54 | XMS_ITS | Clinical Summary ---
:2000 Author Organization [facility] Address [address] [place] [address] Care Team Providers Name Role Phone Elsewhere, Pcp Primary Care Provider Unavailable Source Comments Patient records contain information from all sites at [facility]. For routine questions regarding patient records, call [phone] during business hours, M-F 8:00 AM - 5:00 PM Central Time. Record requests for emergency care only can be directed to [phone] at any time.[facility] Immunizations Name Administration Dates Next [...] Child Check-Up 08/08/2008 9 year Well Child Check-Up 08/08/2009 10 year Well Child Check-Up 08/08/2010 11 [...] Screening (Annual 08/08/2021 PHQ-2) Well Child Check-Up ([facility]) 08/08/2021 COVID-19 Vaccine (4 - 12/11/2021 10/16/2021, 2020, Booster for Moderna series) 08/11/2020 Influenza Vaccine (#1) 2022 09/15/2020, 05/17/2019, 05/23/2018, Additional history exists DTaP,Tdap,and Td Vaccines (8 12/11/2031 12/10/2021, 012, - Td or Tdap) 03/04/2006, Additional history exists Hepatitis B Vaccines Completed [...] Address T e Group Dates PREFERREDONE PREFERREDONE [id number] 2019-Pre [phone] PPO ADMINISTRATIVE ADMINISTRATIVE sent [phone] [employer] [place] [phone] Care Teams Driver Examiner Relationship Specialty Start Date End Date Elsewhere, Pcp PCP - General 03/07/20
--- OUTSIDE RECORDS SUMMARY | 2022-07-19 14:54 | XMS_ITS | Encounter Summary ---
:2000 Author Organization [facility] Address [address] [place] [address] Care Team Providers Name Role Phone Unavailable [...] (129 lb 10.1 oz) 08/19/2016 6:27 PM STARS SPECIALIST Height - - Body Mass Index - - documented in this encounter Progress Notes Ne Grissom - 08/19/2016 5:51 PM CST [id number] CHIEF COMPLAINT/REASON FOR VISIT Abdominal pain. HISTORY [...] concerns or complaints. MEDICATIONS Please see today's [facility] EMR dated 08/19/2016. No changes. ALLERGIES Please see today's [facility] EMR dated 08/19/2016. No changes. VITAL SIGNS Please see today's [facility] EMR dated 08/19/2016. No changes. PHYSICAL [...] to clinic as symptoms warrant. Ne Grissom NLucie/ladan Electronically Signed By: NE GRISSOM NP On: 08/22/2016 09:03 AM Source: [facility] SANDRITASDOLBEYNKAYLASYS Document Id: [id number] S SPECIALIST documented in this encounter Miscellaneous Notes Miscellaneous - Yasmani Cole M.D. - 08/20/2016 7:29 AM CST Custom Result Letter August 20, 2016 AMAIRANI MARTINEZ [address] [facility] [id number] Dear AMAIRANI MARTINEZ, I am pleased to report that your results from the following diagnostic test(s) are benign. If you have questions or concerns, please do not hesitate to call our office. Result Name Current Result XR Abdomen 2 Views 08/19/2016 Sincerely, YASMANI COLE [address] [place] [address] Electronic Signature Electronically Signed By: YASMANI COLE MD On: August 20, 2016 This document has images extracted. Source: [facility] POWERCHART Document Id: [id number] Electronically signed by Anastasia, [facility] Production Planning Supervisor [id number] at 01/17/2017 9:47 PM CDT Miscellaneous - Solomon Hanson L.P.N. - 08/19/2016 6:27 PM CST Pediatric Guide Dog Trainer Intake/History Pediatric Guide Dog Trainer Intake/History Entered On: 08/19/2016 18:30 STARS SPECIALIST Performed On: 08/19/2016 18:27 STARS SPECIALIST by SOLOMON HANSON LPN Intake Chief [...] kg SOLOMON HANSON LPN - 08/19/2016 18:27 STARS SPECIALIST General Info Information Given By : Patient, Mother Preferred Communication Mode : Verbal Languages : Azeri Is Patient Female and 13-50 no hysterectomy : Yes Status : Patient denies Are you ? : No SOLOMON HANSON LPN - 08/19/2016 18:27 STARS SPECIALIST Subjective Pain Symptoms : Yes SOLOMON HANSON LPN - 08/19/2016 18:27 STARS SPECIALIST Pain Scale Pain Scale Verbal 0-10 : Open SOLOMON HANSON LPN - 08/19/2016 18:27 STARS SPECIALIST Pain Pain Assessment Grid Pain 1 Location : Abdomen SOLOMON HANSON LPN - 08/19/2016 18:27 STARS SPECIALIST Dependent Habits Exposure to Tobacco Smoke : Care provider denies smoking in home Smoking Status : Never smoker Tobacco 2A : No Tobacco Use/Currently Using : No Tobacco Use/Last 30 Days : No Tobacco Use/Last 12 months : No SOLOMON HANSON LPN - 08/19/2016 18:27 STARS SPECIALIST Source: [facility] POWERCHART Document Id: [id number] STARS SPECIALIST!36 S SPECIALIST documented in this encounter Plan of Treatment Not on filedocumented as of this encounter Procedures Procedure Name Priority Date/Time Associated Diagnosis Comme nts DX ABDOMEN SUPINE Routine 08/19/2016 7:13 PM Resu lts for this WITH UPRIGHT OR STARS SPECIALIST procedure ar e in DECUBITUS 2 VIEWS the result s section. documented in this encounter Results DX Abdomen Supine with Upright or Decubitus 2 Views (08/19/2016 7:13 PM STARS SPECIALIST) Anatomical Region Laterality Modality Abdomen Right Radiographic Imaging Specimen (Source) Anatomical Collection Method Collection Time Re ceived Time Location / / Volume Laterality 08/19/2016 7:13 PM STARS SPECIALIST Addenda Addendum by Provider, Bob Taylor o matti 08/19/2016 7:13 PM STARS SPECIALIST RAD^^^OW XR Abdomen 2 Views 08/19/2016 19:13:46 Impressions 08/20/2016 7:08 AM STARS SPECIALIST 1. ??No acute findings. Please see above dictation. Narrative 08/20/2016 7:08 AM STARS SPECIALIST EXAM: ??XR Abdomen 2 Views. DEMOGRAPHICS: [...] Please see above d ictation. Rachelle Malcolm R.T.(R)(CT), R.T.(R) IMG DIAGNOSTIC IMAG ING PROCEDURES documented in this encounter Visit Diagnoses Not on filedocumented in this encounter Additional Health Concerns Assessment Noted Time PHQ-9 Depression Total Score: 1 04/22/2014 12:46 PM CD T documented as of this encounter
--- OUTSIDE RECORDS SUMMARY | 2022-07-19 14:54 | XMS_ITS | Encounter Summary ---
:2000 Author Organization [facility] Address [address] [place] [address] Care Team Providers Name Role Phone Mary Farr M.D. Primary Care Provider Encounter Details Date Type Department Care Team Description 09/04/2014 Historical Ophthalmology [facility] Gentry Russell M.D. [address] [place], [place] [phone] (Wo rk) 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 [...] both eyes. CDM Reports - EYEGEN Id: [id number] Status: Fnl Electronically signed by Anastasia [facility] Op[facility] Notes [id number] at 01/26/2017 11:48 AM CDT documented in this encounter Plan of Treatment Not on filedocumented as of this encounter Visit Diagnoses Not on filedocumented in this encounter Additional Health Concerns Assessment Noted Time PHQ-9 Depression Total Score: 1 04/22/2014 12:46 PM CD T documented as of this encounter Care Teams Chemical Strength Tester Relationship Specialty Start Date End Date Mary Farr M.D. PCP - General 01/20/17 02/03/17 documented as of this encounter
--- OUTSIDE RECORDS SUMMARY | 2022-07-19 14:54 | XMS_ITS | Encounter Summary ---
:2000 Author Organization [facility] Address [address] [place] [address] Care Team Providers Name Role Phone Unavailable Primary Care Provider Unavailable Encounter Details Date Type Department Care Team Description 11/11/2014 Hospital Encounter HX [facility] FAMILYPR[facility] Vincenzo Ware P.A.-C. [address] [place] [phone] (Wo rk) 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 Tobacco Use [...] Ware P.A.-C. - 11/11/2014 3:13 PM CDT [id number] CHIEF COMPLAINT/REASON FOR VISIT Sports history and [...] WARE PA-C On: 11/13/2014 10:23 AM Source: [facility] MHSDOLBEYNONRADSYS Document Id: [id number] documented in this encounter Miscellaneous Notes Miscellaneous - Kyle Ware P.A.-C. - 11/11/2014 5:17 PM CDT Ambulatory Patient Summary [address] [id number] Visit Information Name: AMAIRANI MARTINEZ [facility] Number: [id number] Current Date: 11/11/2014 17:17:08 Physicians [...] appointment detail needed. Your Goals/Additional instructions: Source: [facility] POWERCHART Document Id: [id number] Miscellaneous - Kyle Ware P.A.-C. - 11/11/2014 5:17 PM CDT Ambulatory Discharge Medication List [address] [id number] Visit Information Name: AMAIRANI MARTINEZ [facility] Number: [id number] Visit Date: 11/11/2014 17:17:07 Attending [...] PA-C Signed On:11-NOV-2014 17:17:04 Additional Information: Source: [facility] POWERCHART Document Id: [id number] Miscellaneous - Flores Ngo L.P.N. - 11/11/2014 3:34 PM CDT Pediatric Rn Gastroenterology Intake/History Pediatric Rn Gastroenterology Intake/History Entered On: 11/11/2014 15:39 CDT Performed [...] Given By : Patient, Mother Languages : Iranian Is Patient Female and 13-50 no hysterectomy [...] FLORES NGO - 11/11/2014 15:34 CDT Source: [facility] POWERCHART Document Id: [id number] CDT!32 documented in this encounter Plan of Treatment Not on filedocumented as of this encounter Visit Diagnoses Not on filedocumented in this encounter Additional Health Concerns Assessment Noted Time PHQ-9 Depression Total Score: 1 04/22/2014 12:46 PM CD T documented as of this encounter
--- OUTSIDE RECORDS SUMMARY | 2022-07-19 14:54 | XMS_ITS | Encounter Summary ---
:2000 Author Organization [facility] Address [address] [place] [address] Care Team Providers Name Role Phone Mary Farr M.D. Primary Care Provider Encounter Details Date Type Department Care Team Description 01/28/2017 Hospital Encounter HX [facility] Mer Encarnacion, Nicholas PRN, C.N.P. [address] [place], [place] [phone] (Wo rk) 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 Tobacco Use Types Packs/Day Years Used Date Smoking Tobacco: Never Sex Assigned at Date Recorded Not on file documented as of this encounter Nursing Notes Melissa Carlton, L.P.N. - 01/31/2017 3:06 PM CDT lab results 01/31/17 Results card sent, per Dr. Diallo. Electronically Signed By: MELISSA CARLTON LPN On: 01/31/2017 03:07 PM Source: [facility] POWERCHART Document Id: [id number] documented in this encounter Plan of Treatment [...] Component Value Ref Test Analysis Performed At [facility] [employer] Method Time Signature HXChlamydia by POWERCHART [...] Component Value Ref Test Analysis Performed At [facility] [employer] Method Time Signature HX GC by [...] on filedocumented in this encounter Care Teams Cable Dispatcher Relationship Specialty Start Date End Date Mary Farr M.D. PCP - General 01/20/17 02/03/17 documented as of this encounter
--- OUTSIDE RECORDS SUMMARY | 2022-07-19 14:54 | XMS_ITS | Encounter Summary ---
:2000 Author Organization [facility] Address [address] [place] [address] Care Team Providers Name Role Phone Elsewhere, Pcp Primary Care Provider Unavailable Encounter Details Date Type Department Care Team Description 12/18/2020 Admin Visit Department of Family Medicine, [address] [phone] [facility] [phone] 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 Tobacco Use Types Packs/Day Years [...] documented as of this encounter Care Teams Security Administrator Relationship Specialty Start Date End Date Elsewhere, Pcp PCP - General 03/07/20 documented as of this encounter
--- OUTSIDE RECORDS SUMMARY | 2022-07-19 14:54 | XMS_ITS | Encounter Summary ---
:2000 Author Organization [facility] Address [address] [place] [address] Care Team Providers Name Role Phone Mary Farr M.D. Primary Care Provider Encounter Details Date Type Department Care Team Description 01/27/2017 Hospital Encounter HX [facility] FAMILYPRA Kecia Garcia, DUSTY, C.N.P. [address] [place], [place] [phone] (Wo rk) 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 [...] go to college. She is applying for retirement jobs forthe summer. MEDICATIONS No active medications [...] Child & Teen Checkup Charge Developmental Testing ([place]) Charge - [id number] OV Est Pt Prev Svc [id number] Encounter [...] Refill(s), Maintenance, Pharmacy: [id number] Electronically Signed By: KECIA GARCIA APRN, CNP On: 01/27/2017 04:39 PM Source: [facility] [employer] Document Id: [id number] documented in this encounter Procedure Notes Ara Lange L.P.N. - 01/27/2017 4:16 PM CDT Vision Testing Vision Testing Entered On: 01/27/2017 16:16 CDT Performed On: 01/27/2017 16:16 CDT by ARA LANGE LPN Vision Testing Eye, Right with Correction : 20/25 Eye, Left w/Correction : 20/20 ARA LANGE LPN - 01/27/2017 16:16 CDT Source: [employer] Document Id: [id number] CDT!4 Ara Lange L.P.N. - 01/27/2017 4:14 [...] LANGE LPN - 01/27/2017 16:14 CDT Source: [employer] Document Id: [id number] CDT!16 documented in this encounter Nursing Notes [...] whole grains every day. Less healthy foods-like swiss fries, candy, and chips-should be eaten rarely. [...] this visit. Based on recommendations from the [employer], at this visit your [...] away. Next checkup at: PARENT NOTES: ?? [phone] Alyssa Hammond, [address] [place] [address], [place] [address]. All rights reserved. This information is not intended as a substitute for professional medical care. Always follow your healthcare professional's instructions. This document has images extracted. Please consider using [employer] for all your patient education needs. [facility] Document Id: [id number] documented in this encounter Miscellaneous Notes Miscellaneous - Debbie Orta, MICHAEL([facility]) - 01/27/2017 5:13 PM CDT [...] Please send new order to queue. [facility] Document Id: [id number] Miscellaneous - Ara Lange L.P.N. - 01/27/2017 [...] LANGE LPN - 01/27/2017 16:44 CDT Source: [employer] Document Id: [id number] CDT!16 Miscellaneous - Kecia Garcia APRN, C.N.P. - 01/27/2017 4:28 PM CDT Ambulatory Patient Summary [facility] [place] [facility] [address] [place] [id number] Visit Information Name: AMAIRANI NAQVI [facility] Number: [id number] Current Date: 01/27/2017 16:28:23 Physicians Attending Provider: KECIA GARCIA APRN SCHOOL COUNSELOR Primary Care Provider: KECIA GARCIA APRN SCHOOL COUNSELOR AMAIRANI NAQVI has been given the following [...] Oral, once a day New Routed to [place] [id number] Stop Taking the Following Medications: Medication list [...] whole grains every day. Less healthy foods--like swiss fries, candy, and chips--should be eaten rarely. [...] this visit. Based on recommendations from the [employer], at this visit your [...] away. Next checkup at: [facility] NOT[facility]: ?? [facility], [address] [place] [address]. All rights reserved. This information is not [...] if you dont have one. Go to [email or web address] and click on Create Your Account. Then, follow the directions to complete the online form. Youll be asked for your [facility] number which you can find at the top of this document. Your Goals/Additional instructions: This document has images extracted. Please consider using [employer] for all your patient education needs. Source: [facility] POWERCHART Document Id: [id number] Miscellaneous - Kecia Garcia APRN, C.N.P. - 01/27/2017 4:28 PM CDT Ambulatory Discharge Medication List [facility] [address] [place], [place] [id number] Visit Information Name: AMAIRANI NAQVI [facility] Number: [id number] Current Date: 01/27/2017 16:28:23 Attending Provider: KECIA GARCIA APRN, CNP Primary Care Provider: KECIA GARICA APRN, CNP AMAIRANI NAQVI has been given [...] once a day New Routed to [address] [address] Stop Taking the Following Medications: Medication list [...] On:27-JAN-2017 16:28:05 Additional Information: Source: [facility] POWERCHART Document Id: [id number] Miscellaneous - Ara Lange L.P.N. - 01/27/2017 3:58 PM CDT Pediatric Kiln Fireman Intake/History Pediatric Kiln Fireman Intake/History Entered On: 01/27/2017 16:01 CDT Performed [...] Preferred Communication Mode : Verbal Languages : Macedonian Is Patient Female and 13-50 no hysterectomy [...] LANGE LPN - 01/27/2017 15:58 CDT Source: [facility] POWERCHART Document Id: [id number] CDT!36 documented in this encounter Plan of Treatment Not on filedocumented as of this encounter Visit Diagnoses Not on filedocumented in this encounter Care Teams Meter Installer And Remover Relationship Specialty Start Date End Date Mary Farr M.D. PCP - General 01/20/17 02/03/17 documented as of this encounter
--- OUTSIDE RECORDS SUMMARY | 2022-07-19 14:54 | XMS_ITS | Encounter Summary ---
:2000 Author Organization [facility] Address [address] [place] [address] Care Team Providers Name Role Phone Elsewhere, Pcp Primary Care Provider Unavailable Reason for Visit Reason Comments COVID Inquiry Encounter Details Date Type Department Care Team Description 12/17/2020 Clinical Communication Department of [facility], Pcp COVID Inquiry [facility], [facility], in [place], [place] [address] [place] [phone] 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 Tobacco Use Types Packs/Day Years Used Date Smoking Tobacco: Never Sex Assigned at Date Recorded Not on file documented as of this encounter Miscellaneous Notes Telephone Encounter - Kasia Ayala - 12/17/2020 12:26 PM CDT What is the purpose of the call?: Symptomatic (Calling PCP Office) Calling [place] PCP Office What region is the patient calling from? : [place] Have you tested positive for COVID-19 in [...] sending patient for testing in [facility] or [facility], route encounter to the correct testing pool. documented in this encounter Plan of Treatment Not on filedocumented as of this encounter Visit Diagnoses Not on filedocumented in this encounter Care Teams Down Filler Relationship Specialty Start Date End Date Elsewhere, Pcp PCP - General 03/07/20 documented as of this encounter
--- OUTSIDE RECORDS SUMMARY | 2022-07-19 14:54 | XMS_ITS | Encounter Summary ---
:2000 Author Organization [facility] Address [address] [place] [address] Care Team Providers Name Role Phone Unavailable Primary Care Provider Unavailable Encounter Details Date Type Department Care Team Description 09/15/2016 Hospital Encounter HX NO MAPPING Mireya Baugh M.D. [address] [place], [place] [phone] (Wo rk) 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 Tobacco Use Types Packs/Day Years Used Date Smoking Tobacco: Never Sex Assigned at Date Recorded Not on file documented as of this encounter Miscellaneous Notes Miscellaneous - Conversion, Historical Provider Ser - 09/15/2016 11:59 PM [employer] OFFICER Coding Summary-Paper Based CODING DATE: 09/27/2016 [facility] STATUS: * Discharged to Home or Self Care PAYOR: [facility] ADMIT DX: REASON FOR VISIT DX: [...] MARINO Date Saved: 09/27/2016 10:22 am [facility] Document Id: [id number] documented in this encounter Plan of Treatment Not on filedocumented as of this encounter Visit Diagnoses Not on filedocumented in this encounter Additional Health Concerns Assessment Noted Time PHQ-9 Depression Total Score: 1 04/22/2014 12:46 PM CD T documented as of this encounter
--- OUTSIDE RECORDS SUMMARY | 2022-07-19 14:54 | XMS_ITS | Encounter Summary ---
:2000 Author Organization [facility] Address [address] [place] [address] Care Team Providers Name Role Phone Unavailable Primary Care Provider Unavailable Encounter Details Date Type Department Care Team Description 09/15/2016 Hospital Encounter HX [facility] FAMILYPRA Mireya Solorzano M.D. [address] [place], [place] [phone] (Wo rk) 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 [...] (128 lb 4.9 oz) 09/15/2016 2:20 PM TURN DOWN MAN Height - - Body Mass Index - - documented in this encounter Progress Notes Mireya Hendricks M.D. - 09/15/2016 2:10 PM CST [id number] CHIEF COMPLAINT/ REASON FOR VISIT Sore throat [...] behalf by Mary Tipton, a trained medical planner. The creation of this record is based on the scribe's personal observations and the provider's statements to them. This document has been thomas cked and approved by the attending provider. Mireya Roberson M.D./niko Electronically Signed By: MIREYA HENDRICKS MD On: 10/14/2016 08:15 AM Source: [facility] MHSDOLBEYNONRADSYS Document Id: [id number] DOWN MAN documented in this encounter Miscellaneous Notes Miscellaneous - Mireya Hendricks M.D. - 09/16/2016 10:21 PM TURN DOWN MAN Ambulatory Patient Summary [address] [id number] Visit Information Name: AMAIRANI MARTINEZ [facility] Number: [id number] Current Date: 09/16/2016 22:21:07 [...] if you dont have one. Go to [email or web address] and click on Create Your Account. Then, follow the directions to complete the online form. Youll be asked for your [facility] number which you can find at the top of this document. Your Goals/Additional instructions: Source: [facility] [employer] Document Id: [id number] DOWN MAN Miscellaneous - Mireya Hendricks M.D. - 09/16/2016 10:21 PM TURN DOWN MAN Ambulatory Discharge Medication List [address] [id number] Visit Information Name: AMAIRANI MARTINEZ [facility] Number: [id number] Current Date: 09/16/2016 22:21:06 [...] MD Signed On:16-SEP-2016 22:21:00 Additional Information: Source: [facility] POWERCHART Document Id: [id number] DOWN MAN Miscellaneous - Amelie Christie L.P.NRodney - 09/15/2016 2:20 PM CST Pediatric Fairground Operator Intake/History Pediatric Fairground Operator Intake/History Entered On: 09/15/2016 14:24 TURN DOWN MAN Performed On: 09/15/2016 14:20 TURN DOWN MAN by AMELIE CHRISTIE LPN Intake Chief Complaint : c/o ST for [...] Weight Clinic : 58.2 kg AMELIE CHRISTIE [facility] - 09/15/2016 14:20 TURN DOWN MAN General Info Languages : Italian Is Patient Female and 13-50 no hysterectomy : Yes Status : Patient denies Are you ? : No AMELIE CHRISTIE LPN - 09/15/2016 14:20 TURN DOWN MAN Subjective Pain Symptoms : No AMELIE CHRISTIE LPN - 09/15/2016 14:20 TURN DOWN MAN Dependent Habits Exposure to Tobacco Smoke : Care provider denies smoking in home Smoking Status : Never smoker Tobacco 2A : No Tobacco Use/Currently Using : No Tobacco Use/Last 30 Days : No Tobacco Use/Last 12 months : No AMELIE CHRISTIE LPN - 09/15/2016 14:20 TURN DOWN MAN Source: [facility] POWERCHART Document Id: [id number] TURN DOWN MAN!30 DOWN MAN documented in this encounter Plan of Treatment Not on filedocumented as of this encounter Procedures Procedure Name Priority Date/Time Associated Diagnosis Comme nts RAPID STREP A Routine 09/15/2016 2:25 PM Results for this SCREEN TURN DOWN MAN procedure are i n the results section. RAPID STREP A Routine 09/15/2016 2:25 PM Results for this SCREEN TURN DOWN MAN procedure are i n the results section. documented in this encounter Results Rapid Strep A Screen (09/15/2016 2:25 PM TURN DOWN MAN) [facility] [employer] Method Time Signature HXRapid Strep POWERCHART Confirmation HXPre Negative for POWERCHART Group A Strep by culture. HXFinal Negative for POWERCHART Group A Strep by culture. Specimen Anatomical Collection Method Collection Time Receive d Time (Source) Location / / Volume Laterality Throat 09/15/2016 2:25 PM 7 2:25 TURN DOWN MAN PM TURN DOWN MAN Mireya Baugh M.D. LAB MICROBIOLOGY - GEN ERAL ORDERABLES Performing Organization Address [facility] Code Phon e Number POWERCHART Rapid Strep A Screen (09/15/2016 2:25 PM TURN DOWN MAN) [facility] [employer] Method Time Signature HXStrep A POWERCHART Screen Rapid HXFinal Negative for POWERCHART Strep Group A by rapid screen. HXFinal Culture POWERCHART confirmation to follow. Specimen (Source) Anatomical Collection Method Collection Time Re ceived Time Location / / Volume Laterality Throat 09/15/2016 2:25 PM TURN DOWN MAN Mireya Baugh M.D. LAB MICROBIOLOGY - GEN ERAL ORDERABLES Performing Organization Address City/State/[facility] Code Phon e Number POWERCHART documented in this encounter Visit Diagnoses Not on filedocumented in this encounter Additional Health Concerns Assessment Noted Time PHQ-9 Depression Total Score: 1 04/22/2014 12:46 PM CD T documented as of this encounter
--- OUTSIDE RECORDS SUMMARY | 2022-07-19 14:54 | XMS_ITS | Encounter Summary ---
:2000 Author Organization [facility] Address [address] [place] [address] Care Team Providers Name Role Phone Unavailable Primary Care Provider Unavailable Encounter Details Date Type Department Care Team Description 12/10/2015 Hospital Encounter HX [facility] Sa manolo Farr M.D. [phone] (Wo rk) 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 Tobacco Use Types [...] Absolute: 4.58 12/10/15 Lymph Absolute: 2.88 12/10/15 [place] Absolute: 0.81 High 12/10/15 Eos Absolute: 0.08 [...] FARR MD On: 12/13/2015 12:23 PM Source: [facility] POWERCHART Document Id: [id number] documented in this encounter Miscellaneous Notes Miscellaneous - Mary Farr M.D. - 12/13/2015 12:25 PM CDT Normal Results Letter December 13, 2015 AMAIRANI MARTINEZ [facility] [id number] Dear MAAIRANI MARTINEZ, I am pleased to report that [...] Absolute (x10(9)/L) 2.88 12/10/2015 1.20 - 5.20 [place] Absolute (x10(9)/L) (H) 0.81 12/10/2015 0.00 - 0.80 Eos Absolute (x10(9)/L) 0.08 12/10/2015 0.00 - 0.50 Baso Absolute (x10(9)/L) 0.02 12/10/2015 0.00 - 0.20 tFerritin Lvl (ng/mL) 37.0 12/10/2015 11.0 - 307.0 Sincerely, MARY FARR 4 [facility] [place]HY [place] [address] Electronic Signature Electronically Signed By: MARY FARR MD On: December 13, 2015 This document has images extracted. Source: [facility] POWERCHART Document Id: [id number] Electronically signed by Conversion, [facility] Community Product Specialist [id number] at 01/01/2017 1:11 PM CDT Miscellaneous - Mary Farr M.D. - 12/10/2015 5:16 PM CDT Ambulatory Patient Summary [address] [facility] [place] [id number] Visit Information Name: AMAIRANI MARTINEZ [facility] Number: [id number] Current Date: 12/10/2015 17:16:18 Physicians [...] if you dont have one. Go to [email or web address] and click on Create Your Account. Then, follow the directions to complete the online form. Youll be asked for your [facility] number which you can find at the [...] one or two doses per week. Source: [facility] Document Id: [id number] Miscellaneous - Mary Farr M.D. - 12/10/2015 5:16 PM CDT Ambulatory Discharge Medication List [address] [id number] Visit Information Name: DONYA, AMAIRANICHESTER MOBLEY [facility] Number: [id number] Visit Date: 12/10/2015 17:16:17 Attending Provider: MARY FARR MD Primary Care Provider: MARY FARR MD DONYAINESSAAMAIRANICHESTER MOBLEY has been given the [...] MD Signed On:10-DEC-2015 17:13:52 Additional Information: [facility] Document Id: [id number] Miscellaneous - Amelie Christie L.P.N. - 12/10/2015 4:30 PM CDT Pediatric A P Mechanic Intake/History Pediatric A P Mechanic Intake/History Entered On: 12/10/2015 16:34 CDT Performed [...] CHRISTIE LPN - 12/10/2015 16:30 CDT Source: [employer] POWERCHART Document Id: [id number] CDT!32 documented in this encounter Plan of [...] Mononucleosis Screen, POCT (12/10/2015 5:09 PM CDT) Patholo gist Method Time Signature Infectious POWERCHART [place] Test, S HXFinal Negative POWERCHART HXFinal Reference: POWERCHART Negative Specimen (Source) Anatomical Collection Method Collection Time Re ceived Time Location / / Volume Laterality Blood 12/10/2015 5:09 PM CDT Mary Farr M.D. LAB POCT ORDERABLES-MANUAL Performing Organization Address City/State/ZIP Code Phon e Number POWERCHART (ABNORMAL) Automated Differential (12/10/2015 5:02 PM CDT) Patholo gist Method Time Signature Absolute 4.58 1.80 [...] X109L Erythrocytes 4.58 4.10 - 5.20 POWERCHART T2888K Hemoglobin 13.6 12.2 - 14.8 POWERCHART GDL [...]
--- OUTSIDE RECORDS SUMMARY | 2022-07-19 14:54 | XMS_ITS | Encounter Summary ---
:2000 Author Organization [facility] Address [address] [place] [address] Care Team Providers Name Role Phone Mer Encarnacion APRN C.N.PRodney Primary Care Provider [phone] Encounter Details Date Type Department Care Team Description 03/03/2017 Hospital Encounter HX [facility] FAMILYPRA Isai Collins PBryce [address] [place], [place] [phone] (Wo rk) 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 [...] in this encounter Progress Notes Dickson Johnson, PPool.-Joe - 03/03/2017 2:44 PM CDT [id number] CHIEF COMPLAINT/REASON FOR VISIT Possible UTI. HISTORY [...] JOHNSON PA-C On: 04/27/2017 09:41 PM Source: [facility] SANDRITASDBRAIN Document Id: [id number] documented in this encounter Miscellaneous Notes Miscellaneous - Dickson Johnson - 03/09/2017 9:46 PM CDT Results Notification Document Contains Addenda Addendum by HAYLEY FONTANA LPN on March 10, 2017 15:33:22 CDT Spoke with: ( _ ) Patient ( Charlette Nagy ) Parent ( _ ) Spouse ( _ ) Child ( ) Other: _ Call back telephone number: [phone] Reason for Call: -lab results Chief Complaint: Patient's mom informed of message below. She states that their insurnace has changed and now they will need to be seen in [place]. She will talk with patient and find someone in [place] to followup with. Patient/Caller response to Education/Information [...] day Callers preferred language for Healthcare discussion: maldivian Was an language interpreter used for this call? no Other ( --_ ) Addendum by HAYLEY FONTANA LPN on March 10, 2017 15:26:46 CDT Left message for patient's mom to return call. Addendum by VANE ALEXANDER on March 10, 2017 12:33:49 CDT Lilo Ramirez (mom) called back again - she will be off work at 1:45 so call back after that please. [phone] Addendum by VANE ALEXANDER on March 10, 2017 10:07:55 CDT Lilo Ramirez (mom) returned call - best time to reach her today is 12:30 - 1:00 (during her lunch break) - otherwise leave a message and she will try back again when she can. [phone] Addendum by HAYLEY FONTANA LPN on March 10, 2017 09:54:36 [...] Result Name MBO Review Culture Urine Source: [facility] POWERCHART Document Id: [id number] Miscellaneous - Hayley Fontana, L.P.N. - 03/03/2017 2:54 PM CDT Pediatric Global Logistics Manager Intake/History Pediatric Global Logistics Manager Intake/History Entered On: 03/03/2017 14:57 CDT Performed On: 03/03/2017 14:54 CDT by HAYLEY FONTANA LPN Intake Chief Complaint : possible [...] scale Dosing Weight Clinic : 65.5 kg HAYLEY FONTANA LPN - 03/03/2017 14:54 CDT General Info Information Given By : Patient, Mother Languages : Sami Is Patient Female and 13-50 no hysterectomy : Yes Status : Patient denies Are you ? : No ELZARHONDAHAYLEY S RADIOLOGIC TECHNOLOGY TEACHER - 03/03/2017 14:54 CDT Subjective Pain Symptoms : No HAYLEY FONTANA Hema ROCKWELL - 03/03/2017 14:54 CDT Dependent Habits Exposure to Tobacco Smoke : Care provider denies smoking in home Smoking Status : Never smoker Tobacco 2A : No Tobacco Use/Currently Using : No Tobacco Use/Last 30 Days : No Tobacco Use/Last 12 months : No FELICIANAIMARHONDAHAYLEYISSAC Garrido LPN - 03/03/2017 14:54 CDT Source: [facility] POWERCHART Document Id: [id number] CDT!28 documented in this encounter Plan of [...] Culture, Aerobic, Urine (03/03/2017 3:45 PM CDT) [facility] Method Time Signature Bacterial POWERCHART Culture, Aerobic, Urine HXFinal Mixed ranjan. No POWERCHART further studies unless notified. [facility] [place] POWERCHART Microbiology laboratory [phone]. Specimen Anatomical Collection Method Collection Time Receive [...] Color Yellow Colorless POWERCHART Specific <=1.005 POWERCHART [place], POCT, U Comment: Reference Range Specific [place]: 1.000-1.035 pH, POCT, Urine 6.0 <5.0 POWERCHART [...] on filedocumented in this encounter Care Teams Line Assembly Utility Worker Relationship Specialty Start Date End Date Mer Encarnacion, DUSTY, C.N.P. PCP - General 02/04/17 03/06/[address] [place] [phone] documented as of this encounter
--- OUTSIDE RECORDS SUMMARY | 2022-07-19 14:54 | XMS_ITS | Encounter Summary ---
:2000 Author Organization [facility] Address [address] [place] [address] Care Team Providers Name Role Phone Unavailable Primary Care Provider Unavailable Encounter Details Date Type Department Care Team Description 04/22/2014 Hospital Encounter HX [facility] Sa manolo Farr M.D. [phone] (Wo rk) 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 Tobacco Use Types [...] Farr M.D. - 04/22/2014 7:43 AM CDT [id number] CHIEF COMPLAINT/REASON FOR VISIT This 13-1/2-year-old girl is seen for a well-child check. 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 Her academic performance is appropriate, according to [...] has some facial acne. She has an xzvz-utt-jqitwgf benzoyl peroxide product for that and is [...] all four extremities. Babinski response negative bilaterally. Ibniqu-up-kolf testing normal. Romberg negative. Normal tone. IMPRESSION/REPORT/PLAN [...] FARR MD On: 04/23/2014 12:48 PM Source: [facility] MHSDOLBEYNONRADSYS Document Id: [id number] documented in this encounter Miscellaneous Notes Miscellaneous [...] FARR MD - 05/04/2014 12:46 CDT Source: [employer] Document Id: [id number] CDT!15 Miscellaneous - Mary Farr M.D. - 04/22/2014 9:46 AM CDT Ambulatory Patient Summary [address] [id number] Visit Information Name: DONYAINESSA DarbyAMAIRANI ITZ [facility] Number: [id number] Current Date: 04/22/2014 09:46:04 Physicians [...] appointment detail needed. Your Goals/Additional instructions: Source: [facility] POWERCHART Document Id: [id number] Miscellaneous - Mary Farr M.D. - 04/22/2014 9:46 AM CDT Ambulatory Discharge Medication List [address] [id number] Visit Information Name: AMAIRANI MARTINEZ [facility] Number: [id number] Visit Date: 04/22/2014 09:46:03 Attending [...] MD Signed On:22-APR-2014 09:45:57 Additional Information: Source: [facility] POWERCHART Document Id: [id number] Miscellaneous - Vy Maya L.PRodneyNRodney - 04/22/2014 8:03 AM CDT Pediatric Gasoline Attendant Intake/History Pediatric Gasoline Attendant Intake/History Entered On: 04/22/2014 8:06 CDT Performed [...] Information Given By : Mother Languages : [place] Islander Is Patient Female and 13-50 no hysterectomy [...] MAYA LPN - 04/22/2014 8:03 CDT Source: [facility] AppMakr Document Id: [id number] CDT!31 documented in this encounter Plan of Treatment Not on filedocumented as of this encounter Visit Diagnoses Not on filedocumented in this encounter Additional Health Concerns Assessment Noted Time PHQ-9 Depression Total Score: 1 04/22/2014 12:46 PM CD T documented as of this encounter
--- OUTSIDE RECORDS SUMMARY | 2022-07-19 14:54 | XMS_ITS | Encounter Summary ---
:2000 Author Organization [facility] Address [address] [place] [address] Care Team Providers Name Role Phone Unavailable Primary Care Provider Unavailable Encounter Details Date Type Department Care Team Description 09/04/2014 Hospital Encounter HX [facility] Tha Mccrary M.D. [address] [place], [place] [phone] (Wo rk) 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 Tobacco Use Types Packs/Day Years Used Date Smoking Tobacco: Never Assessed Sex Assigned at Date Recorded Not on file documented as of this encounter Progress Notes Gentry Cruz M.D. - 09/04/2014 3:46 PM CST [id number] The documentation for this visit is available in Synthesis IMPRESSION/REPORT/PLAN #1 Myopia both eyes. Increased from previous exam. Plan: Update glasses. F/u six months. INT Gentry Cruz M.D./tarun Electronically Signed By: GENTRY CRUZ MD On: 09/10/2014 08:04 AM Source: [facility] MHSDOLBEYNONRADSYS Document Id: [id number] HT ENGINEER HELICOPTER documented in this encounter Miscellaneous Notes Miscellaneous - Gentry Cruz M.D. - 09/04/2014 4:28 PM CST Ambulatory Patient Summary [facility] [address] [facility] [place] [id number] Visit Information Name: AMAIRANI MARTINEZ [facility] Number: [id number] Current Date: 09/04/2014 16:28:55 Physicians [...] appointment detail needed. Your Goals/Additional instructions: Source: [facility] POWERCHART Document Id: [id number] HT ENGINEER HELICOPTER Miscellaneous - Gentry Cruz M.D. - 09/04/2014 4:28 PM CST Ambulatory Discharge Medication List [facility] [address] [facility] [place] [id number] Visit Information Name: AMAIRANI MARTINEZ [facility] Number: [id number] Visit Date: 09/04/2014 16:28:54 Attending [...] MD Signed On:04-SEP-2014 16:28:53 Additional Information: Source: [facility] POWERCHART Document Id: [id number] HT ENGINEER HELICOPTER documented in this encounter Plan of Treatment Not on filedocumented as of this encounter Visit Diagnoses Not on filedocumented in this encounter Additional Health Concerns Assessment Noted Time PHQ-9 Depression Total Score: 1 04/22/2014 12:46 PM CD T documented as of this encounter
--- OUTSIDE RECORDS SUMMARY | 2022-07-19 14:54 | XMS_ITS | Encounter Summary ---
:2000 Author Organization [facility] Address [address] [place] [address] Care Team Providers Name Role Phone Unavailable Primary Care Provider Unavailable Encounter Details Date Type Department Care Team Description 11/16/2016 Hospital Encounter HX [facility] Jef Bonilla M.D. [address] [place] [phone] (Christa chou) 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 Tobacco Use Types Packs/Day Years [...] Bonilla M.D. - 11/16/2016 3:40 PM CDT [id number] Patient presents initially with her mom and [...] out whether she should see a thoracic physical medicine specialist or a chest surgeon. With the [...] BONILLA MD On: 11/18/2016 04:34 PM Source: [facility] MHSDOLBEYNONRADSYS Document Id: [id number] documented in this encounter Miscellaneous Notes Miscellaneous - Willow Christie LRodneyPRodneyN. - 11/18/2016 4:02 PM CDT *General Message From: WILLOW CHRISTIE LPN ( Pediatric Nurse) Sent: 11/18/2016 16:02:57 CDT Subject: *General Message referral submitted to [facility], and to 's insurance Source: [facility] POWERCHART Document Id: [id number] Miscellaneous - Ki Caballero L.PRodneyN. - 11/16/2016 3:58 PM CDT Pediatric Refinery Operator Light Ends Recovery Intake/History Pediatric Refinery Operator Light Ends Recovery Intake/History Entered On: 11/16/2016 16:00 CDT Performed On: 11/16/2016 15:58 CDT by KI CABALLERO LPN Intake Peripheral Pulse Rate : 77 /min Systolic Blood Pressure : 120 mmHg Diastolic Blood Pressure : 66 mmHg NIBP Mean : 84 mmHg KI CABALLERO LPN - 11/16/2016 16:01 CDT Chief [...] oz) Dosing Weight Clinic : 63.2 kg KI CABALLERO LPN - 11/16/2016 15:58 CDT General Info Languages : Kinyarwanda Is Patient Female and 13-50 no hysterectomy : Yes Status : Patient denies Are you ? : No KI CABALLERO LPN - 11/16/2016 15:58 CDT Subjective Pain Symptoms : Yes KI CABALLERO LPN - 11/16/2016 15:58 CDT Pain Scale Pain Scale Verbal 0-10 : Open KI CABALLERO LPN - 11/16/2016 15:58 CDT Pain Pain Assessment Grid Pain 1 Location : Chest Time Pattern : Intermittent KI CABALLERO LPN - 11/16/2016 15:58 CDT Dependent Habits Exposure to Tobacco Smoke : Care provider denies smoking in home Smoking Status : Never smoker Tobacco 2A : No Tobacco Use/Currently Using : No Tobacco Use/Last 30 Days : No Tobacco Use/Last 12 months : No KI CABALLERO LPN - 11/16/2016 15:58 CDT Source: [facility] POWERCHART Document Id: [id number] CDT!34 documented in this encounter Plan of [...] 11/16/2016 4:21 PM CDT Addenda Addendum by Provider, Bob Taylor o matti 11/16/2016 4:21 PM CDT RAD^^^OW [...] clear. Mild pectus deformity. Thoracic dextroscoliosis. Ani Tucker(R), R.TRodney(R)(M) IMG DIAGNOSTIC IM AGING PROCEDURES documented in this encounter Visit Diagnoses Not on filedocumented in this encounter Additional Health Concerns Assessment Noted Time PHQ-9 Depression Total Score: 1 04/22/2014 12:46 PM CD T documented as of this encounter
--- OUTSIDE RECORDS SUMMARY | 2022-07-19 14:54 | XMS_ITS | Encounter Summary ---
:2000 Author Organization [facility] Address [address] [place] [address] Care Team Providers Name Role Phone Unavailable Primary Care Provider Unavailable Encounter Details Date Type Department Care Team Description 06/15/2016 Hospital Encounter HX [facility] FAMILYPRA Kecia Garcia APRN, C.N.P. [address], [place] [phone] (Wo rk) 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 [...] (132 lb 2.7 oz) 06/15/2016 3:14 PM LABORER ADJUSTABLE STEEL JOIST Height 162 cm (5' 3.78) 06/15/2016 3:14 PM LABORER ADJUSTABLE STEEL JOIST Body Mass Index 22.84 06/15/2016 3:14 PM LABORER ADJUSTABLE STEEL JOIST Body Mass Index Percentile 75.63 % 06/15/2016 [...] APRN, CNP On: 06/15/2016 03:53 PM Source: [facility] POWERCHART Document Id: [id number] RER ADJUSTABLE STEEL JOIST documented in this encounter Nursing Notes Kecia [...] ?? Muffled voice ?? New rash ?? [id number], [place] [address]. All rights reserved. This information is not intended as a substitute for professional medical care. Always follow your healthcare professional's instructions. This document has images extracted. Please consider using [employer] for all your patient education needs. Source: [facility] POWERCHART Document Id: [id number] RER ADJUSTABLE STEEL JOIST documented in this encounter Miscellaneous Notes Miscellaneous - Kecia Garcia APRN, C.N.P. - 06/15/2016 3:52 PM CST Ambulatory Discharge Medication List [address] [id number] Visit Information Name: AMAIRANI NAQVI [facility] Number: [id number] Current Date: 06/15/2016 15:52:51 Attending Provider: KECIA GARCIA APRN [facility] Primary Care Provider: SHAYY HERNANDEZ MD [...] CNP Signed On:15-JUN-2016 15:52:43 Additional Information: Source: [facility] POWERCHART Document Id: [id number] RER ADJUSTABLE STEEL JOIST Miscellaneous - Kecia Garcia APRN, C.N.P. - 06/15/2016 3:52 PM CST Ambulatory Patient Summary [address] [id number] Visit Information Name: AMAIRANI NAQVI [facility] Number: [id number] Current Date: 06/15/2016 15:52:52 [...] are not improving over the next week. [id number] Prompt Medical Attention if any of the [...] ?? Muffled voice ?? New rash ?? [id number] [facility], [address] [place] [address], [place] [address]. All rights reserved. This information is not [...] dont have one. Go to [facility] [email or web address] and click on Create Your Account. Then, follow the directions to complete the online form. Youll be asked for your [facility] number which you can find at the top of this document. Your Goals/Additional instructions: This document has images extracted. Please consider using [employer] for all your patient education needs. Source: [facility] POWERCHART Document Id: [id number] RER ADJUSTABLE STEEL JOIST Miscellaneous - Ara Lange L.P.N. - 06/15/2016 3:14 PM CST Pediatric Sales And Marketing Intern Intake/History Pediatric Sales And Marketing Intern Intake/History Entered On: 06/15/2016 15:16 LABORER ADJUSTABLE STEEL JOIST Performed On: 06/15/2016 15:14 LABORER ADJUSTABLE STEEL JOIST by ARA LANGE LPN Intake Chief Complaint [...] kg/m2 ARA LANGE MOIZ - 06/15/2016 15:14 LABORER ADJUSTABLE STEEL JOIST General Info Present in Room During Exam/Procedure : Mother Information Given By : Patient, Mother Preferred Communication Mode : Verbal Languages : Malay Is Patient Female and 13-50 no hysterectomy : Yes Status : Patient denies Are you ? : No BEATRIZTELLYARA Bergeron MOIZ - 06/15/2016 15:14 LABORER ADJUSTABLE STEEL JOIST Subjective Pain Symptoms : Yes ARA LANGE MOIZ - 06/15/2016 15:14 LABORER ADJUSTABLE STEEL JOIST Pain Scale Pain Scale Verbal 0-10 : Open ARA LANGE MOIZ - 06/15/2016 15:14 LABORER ADJUSTABLE STEEL JOIST Pain Pain Assessment Grid Pain 1 Location : Throat Intensity : 7 Time Pattern : Intermittent ARA LANGE MOIZ - 06/15/2016 15:14 LABORER ADJUSTABLE STEEL JOIST Dependent Habits Exposure to Tobacco Smoke : Care provider denies smoking in home Smoking Status : Never smoker Tobacco 2A : No Tobacco Use/Currently Using : No Tobacco Use/Last 30 Days : No Tobacco Use/Last 12 months : No NAZARIOARAWilner ROCKWELL - 06/15/2016 15:14 LABORER ADJUSTABLE STEEL JOIST Source: [facility] POWERCHART Document Id: [id number] LABORER ADJUSTABLE STEEL JOIST!45 RER ADJUSTABLE STEEL JOIST documented in this encounter Plan of Treatment Not on filedocumented as of this encounter Procedures Procedure Name Priority Date/Time Associated Diagnosis Comme nts RAPID STREP A Routine 06/15/2016 3:51 PM Results for this SCREEN LABORER ADJUSTABLE STEEL JOIST procedure are i n the results section. RAPID STREP A Routine 06/15/2016 3:51 PM Results for this SCREEN LABORER ADJUSTABLE STEEL JOIST procedure are i n the results section. documented in this encounter Results Rapid Strep A Screen (06/15/2016 3:51 PM LABORER ADJUSTABLE STEEL JOIST) [facility] Method Time Signature HXRapid Strep POWERCHART Confirmation HXPre Negative for POWERCHART Group A Strep by culture. HXFinal Negative for POWERCHART Group A Strep by culture. Specimen Anatomical Collection Method Collection Time Receive d Time (Source) Location / / Volume Laterality Throat 06/15/2016 3:51 PM 11/08/201 6 3:51 LABORER ADJUSTABLE STEEL JOIST PM LABORER ADJUSTABLE STEEL JOIST Kecia Garcia APRN, C.N.P. LAB MICROBIOLOGY - GENERAL ORDERABLES Performing Organization Address City/State/ZIP Code Phon e Number POWERCHART Rapid Strep A Screen (06/15/2016 3:51 PM LABORER ADJUSTABLE STEEL JOIST) [facility] Method Time Signature HXStrep A POWERCHART Screen Rapid HXFinal Negative for POWERCHART Strep Group A by rapid screen. HXFinal Culture POWERCHART confirmation to follow. Specimen (Source) Anatomical Collection Method Collection Time Re ceived Time Location / / Volume Laterality Throat 06/15/2016 3:51 PM LABORER ADJUSTABLE STEEL JOIST Kecia Garcia APRN, C.N.P. LAB MICROBIOLOGY - GENERAL ORDERABLES Performing Organization Address City/State/[facility] Code Phon e Number POWERCHART documented in this encounter Visit Diagnoses Not on filedocumented in this encounter Additional Health Concerns Assessment Noted Time PHQ-9 Depression Total Score: 1 04/22/2014 12:46 PM CD T documented as of this encounter
--- OUTSIDE RECORDS SUMMARY | 2022-07-19 14:54 | XMS_ITS | Encounter Summary ---
:2000 Author Organization [facility] Address [address] [place] [address] Care Team Providers Name Role Phone Elsewhere, Pcp Primary Care Provider Unavailable Reason for Visit Reason Onset Date Comments Outpatient COVID-19 Testing 06/15/2020 Encounter Details Date Type Department Care Team Description 06/15/2020 External Outreach Department of Juan Ag Infect ion Upper Internal Medicine in J, D.O. Respiratory (Primary [place], [place] [address] Dx) [address] [place] [phone] 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 Tobacco Use Types Packs/Day Years Used Date Smoking Tobacco: Never Sex Assigned at Date Recorded Not on file documented as of this encounter Progress Notes Areil Li, CRodneyMRodneyA. - 06/15/2020 8:42 AM CST Encounter created for the drive-through COVID-19 testing. OF ADVERTISING documented in this encounter Plan of Treatment Not on filedocumented as of this encounter Procedures Procedure Name Priority Date/Time Associated Diagnosis Comme nts SARS CORONAVIRUS-2 Routine 06/15/2020 1:04 PM Infection Upper Results for this RNA, V HEAD OF ADVERTISING Respiratory procedure are i n the results section. documented in this encounter Results SARS Coronavirus-2 RNA, V Symptomatic (06/15/2020 1:04 PM HEAD OF ADVERTISING) [facility] Method Time Signature SARS-CoV-2 Swab, 06/16/2020 MKTO Specimen Nasopharynx 2:04 PM HEAD OF ADVERTISING Source SARS CoV-2 Undetected Undetected 06/16/2020 MKTO RNA, TMA 2:04 PM HEAD OF ADVERTISING Comment: SARS-CoV-2 RNA absent. This result does not rule out COVID-19 in the patient, as the sensitivity of the test depends o n the timing of the specimen collection and the quality of the specim en. Result should be correlated with patient's history and clinical presentat ion. ----ADDITIONAL INFORMATION---- This test is performed using the Aptima SARS-CoV-2 assay ([employer] which has received Emergency Use Authori zation (EUA) by the U.S. Food and Drug Administration. Fact sheets for this Emergency Use Autho rization (EUA) assay can be found at the following links: For Healthcare Providers: https://www.SocialCom a.gov/media/282018/download For Patients: https://www.fda.gov/media/ 684519/download Specimen Anatomical Collection Method Collection Time Receive d Time (Source) Location / / Volume Laterality Varies 06/15/2020 1:04 PM 0 (Nasopharynx) HEAD OF ADVERTISING 11:28 PM HEAD OF ADVERTISING Juan Ag D.O. LAB MICROBIOLOGY - GENERAL O RDERABLES Performing Organization Address City/State/ZIP Code Phon e Number [facility]- [address] [place] [address] [place] [address] [address] documented in this encounter Visit Diagnoses Diagnosis Infection Upper Respiratory - Primary documented in this encounter Additional Health Concerns Infection Onset Date Last Indicated Resolved Time COVID19 Pending 06/15/2020 06/15/2020 06/16/2020 2:04 PM HEAD OF ADVERTISING documented as of this encounter Care Teams Seismographer Relationship Specialty Start Date End Date Elsewhere, Pcp PCP - General 03/07/20 documented as of this encounter
--- OUTSIDE RECORDS SUMMARY | 2022-07-19 14:54 | XMS_ITS | Encounter Summary ---
:2000 Author Organization [facility] Address [address] [place] [address] Care Team Providers Name Role Phone Mer Encarnacion APRN C.N.P. Primary Care Provider [phone] Encounter Details Date Type Department Care Team Description 03/03/2017 Hospital Encounter HX NO MAPPING Arturo Collins, PRodneyARodney-CRodney [address] [place], [place] [phone] (Wo rk) 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 Tobacco Use Types Packs/Day Years Used Date Smoking Tobacco: Never Sex Assigned at Date Recorded Not on file documented as of this encounter Miscellaneous Notes Miscellaneous - Anastasia, Claudia Provider Ser - 03/03/2017 11:59 PM CDT Coding Summary-Paper Based CODING DATE: 03/14/2017 FINAL [facility] STATUS: * Discharged to Home or Self Care [facility] DX: REASON FOR VISIT DX: FINAL DX: PRINCIPAL: R30.0 Dysuria SECONDARY: PROCEDURES DOCTOR NAME DATE NOTE: The code number assigned matches the documented diagnosis and / or procedure in the patient's chart. However, the narrative phrase printed from the coding software may appear abbreviated, or result in slightly different terminology. Coded By: NIKHIL MARINO Date Saved: 03/14/2017 09:42 am Source: [facility] Document Id: [id number] documented in this encounter Plan of Treatment Not on filedocumented as of this encounter Visit Diagnoses Not on filedocumented in this encounter Care Teams Sales Merchandise Associate Relationship Specialty Start Date End Date Mer Encarnacion, DUSTY, C.N.P. PCP - General 02/04/17 03/06/20 [address] [place] [phone] documented as of this encounter
--- OUTSIDE RECORDS SUMMARY | 2022-07-19 14:54 | XMS_ITS | Encounter Summary ---
:2000 Author Organization [facility] Address [address] [place] [address] Care Team Providers Name Role Phone Elsewhere, Pcp Primary Care Provider Unavailable Encounter Details Date Type Department Care Team Description 06/15/2020 Admin Visit Department of Family Medicine, [address] [address] [facility] [phone] 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 Tobacco Use Types Packs/Day Years Used Date Smoking Tobacco: Never Sex Assigned at Date Recorded Not on file documented as of this encounter Plan of Treatment Not on filedocumented as of this encounter Visit Diagnoses Not on filedocumented in this encounter Additional Health Concerns Infection Onset Date Last Indicated Resolved Time COVID19 Pending 06/15/2020 06/15/2020 06/16/2020 2:04 PM APPRENTICE MACHINIST OUTSIDE documented as of this encounter Care Teams Environmental Lead Relationship Specialty Start Date End Date Elsewhere, Pcp PCP - General 03/07/20 documented as of this encounter
--- OUTSIDE RECORDS SUMMARY | 2022-07-19 14:54 | XMS_ITS | Encounter Summary ---
:2000 Author Organization [facility] Address [address] [place] [address] Care Team Providers Name Role Phone Unavailable Primary Care Provider Unavailable Encounter Details Date Type Department Care Team Description 01/09/2014 Hospital Encounter [facility] Fred Hill M.D. [address] [place] [address] (Wo rk) 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 Tobacco [...] Hill M.D. - 01/09/2014 6:35 PM CDT [id number] CHIEF COMPLAINT/REASON FOR VISIT A 13-year-old female [...] HILL MD On: 01/11/2014 11:26 AM Source: [facility] MHSDOLBEYNONRADSYS Document Id: [id number] documented in this encounter Miscellaneous Notes Miscellaneous - Bean Kohler L.P.NRodney - 01/09/2014 7:09 PM CDT Pediatric Medical Leader Intake/History Pediatric Medical Leader Intake/History Entered On: 01/09/2014 19:13 CDT Performed [...] Given By : Patient, Father Languages : Telugu BEAN KOHLER - 01/09/2014 19:09 CDT Subjective [...] BEAN KOHLER - 01/09/2014 19:09 CDT Source: [facility] POWERCHART Document Id: [id number] CDT!29 documented in this encounter Plan of Treatment Not on filedocumented as of this encounter Visit Diagnoses Not on filedocumented in this encounter
--- OUTSIDE RECORDS SUMMARY | 2022-07-19 14:54 | XMS_ITS | Encounter Summary ---
:2000 Author Organization [facility] Address [address] [place] [address] Care Team Providers Name Role Phone Unavailable Primary Care Provider Unavailable Encounter Details Date Type Department Care Team Description 06/15/2016 Hospital Encounter HX NO MAPPING Mer Ecnarnacion, CYBER INTEL PLANNER, C.N.P. [address] [place], [place] [address] (Wo rk) 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 Tobacco Use Types Packs/Day Years Used Date Smoking Tobacco: Never Assessed Sex Assigned at Date Recorded Not on file documented as of this encounter Miscellaneous Notes Miscellaneous - Conversion, Historical Provider Ser - 06/15/2016 11:59 PM ASSOCIATE PROFESSOR OF ECONOMICS Coding Summary-Paper Based CODING DATE: 06/24/2016 FINAL [facility] STATUS: * Discharged to Home or Self Care PAYOR: [facility] ADMIT DX: REASON FOR VISIT DX: [...] MOSS Date Saved: 06/24/2016 11:23 am [facility] Document Id: [id number] documented in this encounter Plan of Treatment Not on filedocumented as of this encounter Visit Diagnoses Not on filedocumented in this encounter Additional Health Concerns Assessment Noted Time PHQ-9 Depression Total Score: 1 04/22/2014 12:46 PM CD T documented as of this encounter
--- OUTSIDE RECORDS SUMMARY | 2022-07-19 14:55 | XMS_ITS | Encounter Summary ---
:2000 Author Organization [facility] Address [address] [place] [address] Care Team Providers Name Role Phone Unavailable Primary Care Provider Unavailable Encounter Details Date Type Department Care Team Description 04/21/2010 Hospital Encounter HX [facility] Tom Peoples M.D. [address] [place], [place] [address] (Wo rk) 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 Tobacco [...] Peoples M.D. - 04/21/2010 12:00 AM CDT [id number] CHIEF COMPLAINT/REASON FOR VISIT Persistent ear infection. [...] prescribed Claritin, but insurance does not cover mwlf-puy-czqajud medications and they have not been able to get that yet. CURRENT MEDICATIONS Post-visit Medication Reconciliation 1. Cefdinir 250 mg per 5 ml, 10 ml p.o. once daily x10 days. 2. Bbhs-lyl-ipxjdse Loratadine or Cetirizine p.o. p.r.n. allergies. ALLERGIES [...] otic drops. KSL/glt Signed Venus Peoples M.D. X Ray Operator Electronically Signed By:VENUS PEOPLES MD On 04/27/2010 11:37 am Source: [facility] MHSDOLBEYNONRADSYS Document Id: [id number] documented in this encounter Miscellaneous Notes Miscellaneous - Chantell Sandoval - 04/21/2010 3:33 PM CDT Pediatric Horticulture/Floriculture Teacher Intake/History Pediatric Horticulture/Floriculture Teacher Intake/History Entered On: 04/21/2010 15:36 CDT Performed [...] CHANTELL UMANA; Reviewed Date: 04/21/201015:33 CDT Source: [facility] POWERCHART Document Id: [id number] CDT!16 documented in this encounter Plan of Treatment Not on filedocumented as of this encounter Visit Diagnoses Not on filedocumented in this encounter
--- OUTSIDE RECORDS SUMMARY | 2022-07-19 14:55 | XMS_ITS | Encounter Summary ---
:2000 Author Organization [facility] Address [address] [place] [address] Care Team Providers Name Role Phone Unavailable Primary Care Provider Unavailable Encounter Details Date Type Department Care Team Description 07/06/2011 Hospital Encounter HX [facility] Tom Peoples M.D. [address] [place], [...] (91 lb 0.8 oz) 07/06/2011 1:40 PM LEGAL BILLING SPECIALIST Height 148.6 cm (4' 10.5) 07/06/2011 1:40 PM LEGAL BILLING SPECIALIST Body Mass Index 18.7 07/06/2011 1:40 PM LEGAL BILLING SPECIALIST Body Mass Index Percentile 68.89 % 07/06/2011 1:40 PM CS T Growth Chart: CDC (Girls, 2-20 Years) documented in this encounter Progress Notes Venus Peoples M.D. - 07/06/2011 12:00 AM CST [id number] CHIEF COMPLAINT/ REASON FOR VISIT Fever and [...] more time. KSL/glt Signed Venus Peoples M.D. Optical Sales Associate Electronically Signed By: VENUS PEOPLES MD On: 07/08/2011 01:55 PM Source: [facility] MHSDOLBEYNONRADSYS Document Id: [id number] L BILLING SPECIALIST documented in this encounter Miscellaneous Notes Miscellaneous - Venus Peoples M.D. - 07/06/2011 1:59 PM CST Ambulatory Patient Summary [address] [address] Visit Information Name: AMAIRANI MARTINEZ Current Date: [...] No Appointments found Your Goals/Additional instructions: Source: [employer] Document Id: [id number] L BILLING SPECIALIST Miscellaneous - Venus Peoples M.D. - 07/06/2011 1:59 PM CST Ambulatory Depart Summary [address] [address] Visit Information Name: DONYA AMAIRANICHESTER NICOLELENNIE Current [...] Oral once a day Additional Information: Source: [employer] Document Id: [id number] L BILLING SPECIALIST Miscellaneous - Chantell Sandoval - 07/06/2011 1:40 PM CST Pediatric Chief Projectionist Intake/History Pediatric Chief Projectionist Intake/History Entered On: 07/06/2011 13:43 LEGAL BILLING SPECIALIST Performed On: 07/06/2011 13:40 LEGAL BILLING SPECIALIST by CHANTELL UMANA Intake Chief Complaint : [...] : 18.70kg/m2 CHANTELL UMANA - 07/06/2011 13:40 LEGAL BILLING SPECIALIST Subjective Pain Symptoms : No CHANTELL UMANA - 07/06/2011 13:40 LEGAL BILLING SPECIALIST Dependent Habits Tobacco Use/Currently Using : No Smoking Status : Never smoker CHANTELL UMANA - 07/06/2011 13:40 LEGAL BILLING SPECIALIST Allergy Allergies (Active) NKA Estimated Onset Date: Unspecified ; Created By: CHANTELL UMANA; Reaction Status: Active ; Category: Drug ; Substance: NKA ; Type: Allergy ; Updated By: CHANTELL UMANA; Reviewed Date: 07/06/201113:39 LEGAL BILLING SPECIALIST Source: [facility] POWERCHART Document Id: [id number] LEGAL BILLING SPECIALIST!21 L BILLING SPECIALIST documented in this encounter Plan of Treatment Not on filedocumented as of this encounter Visit Diagnoses Not on filedocumented in this encounter
--- OUTSIDE RECORDS SUMMARY | 2022-07-19 14:55 | XMS_ITS | Encounter Summary ---
:2000 Author Organization [facility] Address [address] [place] [address] Care Team Providers Name Role Phone Unavailable Primary Care Provider Unavailable Encounter Details Date Type Department Care Team Description 07/14/2010 Hospital Encounter HX [facility] Tom Peoples M.D. [address] [place], [place] [address] (Wo rk) 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 Tobacco [...] (78 lb 14.8 oz) 07/14/2010 8:35 AM SWITCHBOARD MANAGER Height - - Body Mass Index - - documented in this encounter Progress Notes Venus Peoples M.D. - 07/14/2010 12:00 AM CST [id number] CHIEF COMPLAINT/ REASON FOR VISIT Ear pain [...] Dr. Andrade. KSL/glt Signed Venus Peoples M.D. Base Manager Electronically Signed By:VENUS PEOPLES MD On 07/16/2010 03:34 pm Source: [facility] MHSDOLBEYNONRADSYS Document Id: [id number] CHBOARD MANAGER documented in this encounter Miscellaneous Notes Miscellaneous - Venus Peoples M.D. - 07/14/2010 8:45 AM CST Ambulatory Patient Summary [address] [address] Visit Information Name: AMAIRANI MARTINEZ Current Date: 07/14/2010 08:45:00 Primary Care Provider: VENUS PEOPLES MD [id number] Your Medications Here is a list of [...] No Appointments found Your Goals/Additional instructions: Source: [facility] POWERCHART Document Id: [id number] Electronically signed by Anastasia [facility] [employer] [id number] at 01/10/2017 4:58 AM CDT Miscellaneous - Venus Peoples M.D. - 07/14/2010 8:45 AM CST Ambulatory Depart Summary [address] [address] Visit Information Name: AMAIRANI MARTINEZ Current Date: 07/14/2010 08:45:00 Primary Care Provider: VENUS PEOPLES MD [id number] DONYA, AMAIRANI ITZ has been given the following [...] to the patient and/or family, guardian/caregiver. Source: [facility] TrueVaultCHART Document Id: [id number] Electronically signed by Anastasia [facility] Sifter And Miller [id number] at 01/10/2017 4:58 AM CDT Miscellaneous - Chantell Sandoval - 07/14/2010 8:35 AM CST Pediatric Oceanography Teacher Intake/History Pediatric Oceanography Teacher Intake/History Entered On: 07/14/2010 8:37 SWITCHBOARD MANAGER Performed On: 07/14/2010 8:35 SWITCHBOARD MANAGER by CHANTELL UMANA Intake Ambulatory Intake Additional Information: 2 large bullous lesions. no fevers VENUS PEOPLES MD - 07/14/2010 8:44 SWITCHBOARD MANAGER Chief Complaint: c/o left ear hurting, x 1 day; cold x 1 week Temperature Core: 37.1C(Converted to: 98.8DegF) Apical Heart Rate: 80/min Respiratory Rate: 22/min Systolic Blood Pressure: 102mmHg Diastolic Blood Pressure: 60mmHg NIBP Mean: 74mmHg BP Location: Right upper extremity Actual Weight: 35.800kg(Converted to: 78lb 15oz) Dosing Weight Clinic: 35.80kg CHANTELL UMANA - 07/14/2010 8:35 SWITCHBOARD MANAGER Subjective Pain Symptoms: No CHANTELL UMANA - 07/14/2010 8:35 SWITCHBOARD MANAGER Dependent Habits Tobacco Use/Currently Using: No CHANTELL UMANA - 07/14/2010 8:35 SWITCHBOARD MANAGER Allergy Allergies (Active) NKA Estimated Onset Date: Unspecified ; Created By: CHANTELL UMANA; Reaction Status: Active ; Category: Drug ; Substance: NKA ; Type: Allergy ; Updated By: CHANTELL UMANA; Reviewed Date: 07/14/20108:34 SWITCHBOARD MANAGER Source: [facility] TrueVaultCHART Document Id: [id number] SWITCHBOARD MANAGER!3 CHBOARD MANAGER documented in this encounter Plan of Treatment Not on filedocumented as of this encounter Visit Diagnoses Not on filedocumented in this encounter
--- OUTSIDE RECORDS SUMMARY | 2022-07-19 14:55 | XMS_ITS | Encounter Summary ---
:2000 Author Organization [facility] Address [address] [place] [address] Care Team Providers Name Role Phone Unavailable [...] Provider Ser - 06/05/2010 12:00 AM CDT [id number] IMPRESSION/REPORT/PLAN 1. Resolving perforation of the tympanic [...] negative, and there is no cervical adenopathy. YUNIOR/ayaan Signed Jordyn Knight II, M.D. ENT Electronically Signed By:JORDYN KNIGHT II, MD On 06/13/2010 09:48 pm Modified by:JORDYN KNIGHT II, MD On 06/13/2010 09:48 pm Source: [facility] MHSDOLBEYNONRADSYS Document Id: [id number] documented in this encounter Miscellaneous Notes Miscellaneous - Conversion, Historical Provider Ser - 06/05/2010 10:42 AM CDT Pediatric Mental Health Clinician Intake/History Pediatric Mental Health Clinician Intake/History Entered On: 06/05/2010 10:43 CDT Performed [...] CHANTELL UMANA; Reviewed Date: 06/05/201010:42 CDT Source: [facility] [employer] Document Id: [id number] CDT!14 documented in this encounter Plan of Treatment Not on filedocumented as of this encounter Visit Diagnoses Not on filedocumented in this encounter
--- OUTSIDE RECORDS SUMMARY | 2022-07-19 14:55 | XMS_ITS | Encounter Summary ---
:2000 Author Organization [facility] Address [address] [place] [address] Care Team Providers Name Role Phone Unavailable Primary Care Provider Unavailable Encounter Details Date Type Department Care Team Description 11/14/2013 Hospital Encounter HX [facility] Tha Hanley M.D. [address] [place], [place] [address] (Wo rk) 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 [...] Right Eye Manifest Grid Date : 09/22/2012 CREDENTIALER 11/14/2013 CDT Performed by : Anni Sphere : -3.50 -3.75 Visual Acuity Distance : 20/20 20/20 Visual Acuity Near : 20/20 WINDY GUTIERREZ RIKKI - 11/14/2013 16:22 CDT WILLIAMBILLY GarridoWINDY RIKKI - 11/14/2013 16:22 CDT Left Eye Manifest Grid Date : 09/22/2012 CREDENTIALER 11/14/2013 CDT Performed by : Anni Sphere [...] Child Mix Eye Drop Time : 16:27 CREDENTIALER Child Mix Eye Drop Comment : vco WINDY GUTIERREZ - 11/14/2013 16:22 CDT Source: [facility] POWERCHART Document Id: [id number] CDT!41 documented in this encounter H&P Notes Gentry Cruz M.D. - 11/14/2013 4:09 PM CDT [id number] CHIEF COMPLAINT/REASON FOR VISIT Routine ophthalmic exam. IMPRESSION/REPORT/PLAN Increased myopia, both eyes. PLAN: Update glasses prescription. Follow up in 1 year. Gentry Cruz M.D./ladan Electronically Signed By: GENTRY CRUZ MD On: 11/15/2013 08:00 AM Source: [facility] MHSDOLBEYNONRADSYS Document Id: [id number] documented in this encounter Miscellaneous Notes Miscellaneous - Gentry Cruz M.D. - 11/14/2013 4:45 PM CDT Ambulatory Patient Summary [facility] [address] [place] [id number] Visit Information Name: AMAIRANI MARTINEZ [facility] Number: [id number] Current Date: 11/14/2013 16:45:19 [...] appointment detail needed. Your Goals/Additional instructions: Source: [facility] POWERCHART Document Id: [id number] Miscellaneous - Gentry Cruz M.D. - 11/14/2013 4:45 PM CDT Ambulatory Discharge Medication List [facility] [address] [place], [place] [address] [phone] Visit Information Name: AMAIRANI MARTINEZ [facility] Number: [id number] Visit Date: 11/14/2013 16:45:18 [...] MD Signed On:14-NOV-2013 16:45:17 Additional Information: Source: [facility] POWERCHART Document Id: [id number] documented in this encounter Plan of Treatment Not on filedocumented as of this encounter Visit Diagnoses Not on filedocumented in this encounter
--- OUTSIDE RECORDS SUMMARY | 2022-07-19 14:55 | XMS_ITS | Encounter Summary ---
:2000 Author Organization [facility] Address [address] [place] [address] Care Team Providers Name Role Phone Unavailable Primary Care Provider Unavailable Encounter Details Date Type Department Care Team Description 09/22/2012 Hospital Encounter HX [facility] David Cortez M.D. [address] [place], [place] [phone] (Wo rk) 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 Tobacco Use Types Packs/Day Years Used Date Smoking Tobacco: Never Assessed Sex Assigned at Date Recorded Not on file documented as of this encounter Plan of Treatment Not on filedocumented as of this encounter Visit Diagnoses Not on filedocumented in this encounter
--- OUTSIDE RECORDS SUMMARY | 2022-07-19 14:55 | XMS_ITS | Encounter Summary ---
:2000 Author Organization [facility] Address [address] [place] [address] Care Team Providers Name Role Phone Unavailable [...] (80 lb 0.4 oz) 06/18/2010 3:28 PM DATA SCIENCES DIRECTOR Height - - Body Mass Index - - documented in this encounter Progress Notes Conversion, Historical Provider Ser - 06/18/2010 12:00 AM CST [id number] IMPRESSION/REPORT/PLAN 1. Resolving otitis media of the [...] is no evidence of cervical adenopathy bilaterally. RJL/adamn Signed Jordyn Knight II, M.D. ENT CC: Amanda Peoples M.D. Natural Gas Basis Trader [address] [place] [id number] Electronically Signed By:JORDYN KNIGHT II, MD On 06/23/2010 02:53 pm Modified by:JORDYN KNIGHT II, MD On 06/23/2010 02:53 pm Source: [facility] MHSDOLBEYNONRADSY Document Id: [id number] documented in this encounter Miscellaneous Notes Miscellaneous - Conversion, Historical Provider Ser - 06/18/2010 3:28 PM DATA SCIENCES DIRECTOR Pediatric Asphalt Tamper Intake/History Pediatric Asphalt Tamper Intake/History Entered On: 06/18/2010 15:29 DATA SCIENCES DIRECTOR Performed On: 06/18/2010 15:28 DATA SCIENCES DIRECTOR by MIESHA ALLISON LPN Intake Chief Complaint: Post-op Temperature Core: 36.4C(Converted to: 97.5DegF) (LOW) Systolic Blood Pressure: 110mmHg Diastolic Blood Pressure: 60mmHg NIBP Mean: 77mmHg BP Location: Right upper extremity Actual Weight: 36.300kg(Converted to: 80lb 0oz) Dosing Weight Clinic: 36.30kg MIESHA ALLISON LPN - 06/18/2010 15:28 DATA SCIENCES DIRECTOR Subjective Pain Symptoms: No MIESHA ALLISON LPN - 06/18/2010 15:28 DATA SCIENCES DIRECTOR Dependent Habits Tobacco Use/Currently Using: No MIESHA ALLISON LPN - 06/18/2010 15:28 DATA SCIENCES DIRECTOR Allergy Allergies (Active) NKA Estimated Onset Date: Unspecified ; Created By: CHANTELL UMANA; Reaction Status: Active ; Category: Drug ; Substance: NKA ; Type: Allergy ; Updated By: CHANTELL UMANA; Reviewed Date: 06/18/201015:27 DATA SCIENCES DIRECTOR Source: [facility] POWERCHART Document Id: [id number] DATA SCIENCES DIRECTOR!14 documented in this encounter Plan of Treatment Not on filedocumented as of this encounter Visit Diagnoses Not on filedocumented in this encounter
--- OUTSIDE RECORDS SUMMARY | 2022-07-19 14:55 | XMS_ITS | Encounter Summary ---
:2000 Author Organization [facility] Address [address] [place] [address] Care Team Providers Name Role Phone Unavailable [...] 05/22/2010 11:24 AM C DT Growth Chart: CDC (Girls, 2-20 Years) documented in this encounter Progress Notes Conversion, Historical Provider Ser - 05/22/2010 12:00 AM CDT [id number] IMPRESSION/REPORT/PLAN 1. Chronic otitis media. 2. Chronic [...] by:JORDYN KNIGHT On 05/26/2010 02:00 am Source: [facility] MHSDOLBEYNONRADSYS Document Id: [id number] documented in this encounter Miscellaneous Notes Miscellaneous - Conversion, Historical Provider Ser - 05/22/2010 11:24 AM CDT Adult Vending Service Technician Intake/History Adult Vending Service Technician Intake/History Entered On: 05/22/2010 11:33 CDT [...] 05/22/2010 11:24 CDT Subjective Pain Symptoms: No MEISHA ALLISON LPN - 05/22/2010 11:24 CDT Dependent Habits Tobacco Use/Currently Using: Terese GOODMANMIESHA MCBRIDE NICKEL PLATER - 05/22/2010 11:24 CDT Allergies Allergies (Active) NKA Estimated Onset Date: Unspecified ; Created By: CHANTELL UMANA; Reaction Status: Active ; Category: Drug ; Substance: NKA ; Type: Allergy ; Updated By: CHANTELL UMANA; Reviewed Date: 05/22/201011:21 CDT Source: [facility] [employer] Document Id: [id number] CDT!14 documented in this encounter Plan of Treatment Not on filedocumented as of this encounter Visit Diagnoses Not on filedocumented in this encounter
--- OUTSIDE RECORDS SUMMARY | 2022-07-19 14:55 | XMS_ITS | Encounter Summary ---
:2000 Author Organization [facility] Address [address] [place] [address] Care Team Providers Name Role Phone Unavailable Primary Care Provider Unavailable Encounter Details Date Type Department Care Team Description 05/21/[address] [facility] Tom Peoples M.D. [address] [place], [place] [address] (Wo rk) 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 [...] Peoples M.D. - 05/21/2010 12:00 AM CDT [id number] CHIEF COMPLAINT/ REASON FOR VISIT Preanesthesia medical [...] surgery date. KSL/glt Signed Venus Peoples M.D. Oil Pit Attendant Electronically Signed By:VENUS PEOPLES MD On 05/26/2010 02:41 pm Source: [facility] MHSDOLBEYNONRADSYS Document Id: [id number] documented in this encounter Miscellaneous Notes Miscellaneous - Chantell Sandoval - 05/21/2010 3:51 PM CDT Pediatric Tax Compliance Agent Intake/History Pediatric Tax Compliance Agent Intake/History Entered On: 05/21/2010 15:52 CDT Performed [...] UMANA; Reviewed Date: 05/14/201014:19 CDT Source: [facility] [employer] Document Id: [id number] CDT!20 documented in this encounter Plan of Treatment Not on filedocumented as of this encounter Visit Diagnoses Not on filedocumented in this encounter
--- OUTSIDE RECORDS SUMMARY | 2022-07-19 14:55 | XMS_ITS | Encounter Summary ---
:2000 Author Organization [facility] Address [address] [place] [address] Care Team Providers Name Role Phone Unavailable Primary Care Provider Unavailable Encounter Details Date Type Department Care Team Description 03/15/2013 Hospital Encounter HX [facility] PEDI[facility]IC Tom Peoples M.D. [address] [place], [place] [address] (Wo rk) 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 Tobacco [...] Peoples M.D. - 03/15/2013 12:34 PM CDT [id number] CHIEF COMPLAINT/REASON FOR VISIT A 12-year-old well-child [...] PEOPLES MD On: 03/19/2013 04:50 PM Source: [facility] MHSDOLBEYNONRADSYS Document Id: [id number] documented in this encounter Procedure Notes Conversion, Historical Provider Ser - 03/15/2013 1:29 PM CDT Vision Testing Vision Testing Entered On: 03/15/2013 13:29 CDT Performed On: 03/15/2013 13:29 CDT by JENN BOLIVAR LPN Vision Testing Corrective Lenses : Glasses Color Vision : Pass Eye, Right with Correction : 20/20 Eye, Left w/Correction : 20/25 JENN BOLIVAR LPN - 03/15/2013 13:29 CDT Source: [facility] POWERCHART Document Id: [id number] CDT!6 Conversion, Historical Provider Ser - 03/15/2013 [...] BOLIVAR LPN - 03/15/2013 13:29 CDT Source: [facility] [facility] Document Id: [id number] CDT!44 documented in this encounter Miscellaneous Notes Miscellaneous - Venus Peoples M.D. - 03/15/2013 1:49 PM CDT Ambulatory Depart Summary [address] [address] Visit Information Name: AMAIRANI MARTINEZ [facility] Number: [phone] Visit Date: 03/15/2013 13:49:04 Attending [...] your provider for clarification. Additional Information: Source: [employer] ([employer] Document Id: [id number] Miscellaneous - Venus Peoples M.D. - 03/15/2013 1:49 PM CDT Ambulatory Patient Summary [address] [address] Visit Information Name: AMAIRANI MARTINEZ [facility] Number: [id number] Current Date: 03/15/2013 13:49:04 Physicians [...] No Appointments found Your Goals/Additional instructions: Source: [employer] ([employer] Document Id: [id number] Miscellaneous - Conversion, Historical Provider Ser - 03/15/2013 1:14 PM CDT Pediatric Sole Seamer Intake/History Pediatric Sole Seamer Intake/History Entered On: 03/15/2013 13:15 CDT Performed [...] Info Preferred Name : Amairani Languages : Upper Sorbian JENN BOLIVAR LPN - 03/15/2013 13:14 CDT Subjective Pain Symptoms : No JENN BOLIVAR LPN - 03/15/2013 13:14 CDT Dependent Habits Tobacco Use/Currently Using : No Exposure to Tobacco Smoke : Care provider denies smoking in home Smoking Status : Never smoker JENN BOLIVAR LPN - 03/15/2013 13:14 CDT Source: [facility] POWERCHART Document Id: [id number] CDT!26 documented in this encounter Plan of Treatment Not on filedocumented as of this encounter Visit Diagnoses Not on filedocumented in this encounter
--- OUTSIDE RECORDS SUMMARY | 2022-07-19 14:55 | XMS_ITS | Encounter Summary ---
:2000 Author Organization [facility] Address [address] [place] [address] Care Team Providers Name Role Phone Unavailable Primary Care Provider Unavailable Encounter Details Date Type Department Care Team Description 04/10/2010 Hospital Encounter [facility]X [facility] PEDIATRIC Tom Peoples M.D. [address] [place], [place] [address] (Wo rk) 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 Tobacco [...] Peoples M.D. - 04/10/2010 12:00 AM CDT [id number] CHIEF COMPLAINT/REASON FOR VISIT Left ear pain. [...] her Claritin. KSL/glt Signed Venus Peoples M.D. Hotel Registration Clerk Electronically Signed By:VENUS PEOPLES MD On 04/17/2010 02:47 pm Source: [facility] MHSDOLBEYNONRADSYS Document Id: [id number] documented in this encounter Miscellaneous Notes Miscellaneous - Chantell Sandoval - 04/10/2010 4:12 PM CDT Pediatric Pararescue Craftsman Intake/History Pediatric Pararescue Craftsman Intake/History Entered On: 04/10/2010 16:12 CDT Performed [...] CHANTELL UMANA; Reviewed Date: 04/10/201016:11 CDT Source: [facility] POWERCHART Document Id: [id number] CDT!3 Miscellaneous - Chantell Sandoval - 03/03/2009 4:32 PM CDT Pediatric Growth Pediatric Growth Entered On: 04/10/2010 16:33 CDT Performed On: 03/03/2009 16:32 CDT by CHANTELL UMANA Pediatric Growth Height: 132.50cm(Converted to: 4ft 4in, 4.35ft, 52.17in) Actual Weight: 29.100kg(Converted to: 64lb 2oz, 64.155lb, 1,026.472oz) Body Mass Index: 17kg/m2 CHANTELL UMANA - 04/10/2010 16:32 CDT Source: [employer] Document Id: [id number] CDT!5 Miscellaneous - Chantell Sandoval - 03/25/2008 4:33 PM CDT Pediatric Growth Pediatric Growth Entered On: 04/10/2010 16:33 CDT Performed On: 03/25/2008 16:33 CDT by CHANTELL UMANA Pediatric Growth Height: 126.50cm(Converted to: 4ft 2in, 4.15ft, 49.80in) Actual Weight: 25.800kg(Converted to: 56lb 14oz, 56.879lb, 910.068oz) Body Mass Index: 16kg/m2 CHANTELL UMANA - 04/10/2010 16:33 CDT Source: [employer] Document Id: [id number] CDT!5 documented in this encounter Plan of Treatment Not on filedocumented as of this encounter Visit Diagnoses Not on filedocumented in this encounter
--- OUTSIDE RECORDS SUMMARY | 2022-07-19 14:55 | XMS_ITS | Encounter Summary ---
:2000 Author Organization [facility] Address [address] [place] [address] Care Team Providers Name Role Phone Unavailable Primary Care Provider Unavailable Encounter Details Date Type Department Care Team Description 06/18/2010 Hospital Encounter HX [facility] AUDIOLOGY Mojgan Felix am, Au.D. 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 Tobacco Use Types Packs/Day Years Used Date Smoking Tobacco: Never Assessed Sex Assigned at Date Recorded Not on file documented as of this encounter Progress Notes Stas Felix - 06/18/2010 12:00 AM CST [id number] IMPRESSION / REPORT / PLAN She is following with Dr. Andrade. CHIEF COMPLAINT / REASON FOR VISIT Seen for an audiologic evaluation following tube removal. PHYSICAL EXAM AREA EXAM TEXT ENT Tympanograms are normal in both ears. Puretone testing results are consistent with normal hearing bilaterally. MOA/sks Signed Amari Forrset. Audiology Electronically Signed By:STAS FELIX On 06/22/2010 01:08 PM Source: [facility] MHSDOLBEYNONRADSYS Document Id: [id number] H MIXER documented in this encounter Plan of Treatment Not on filedocumented as of this encounter Visit Diagnoses Not on filedocumented in this encounter
--- OUTSIDE RECORDS SUMMARY | 2022-07-19 14:55 | XMS_ITS | Encounter Summary ---
:2000 Author Organization [facility] Address [address] [place] [address] Care Team Providers Name Role Phone Unavailable Primary Care Provider Unavailable Encounter Details Date Type Department Care Team Description 01/28/2012 Hospital Encounter HX [facility] PEDIATRIC Tom Peoples M.D. [address] [place], [place] [address] (Wo rk) Social History Tobacco [...] Peoples M.D. - 01/28/2012 12:00 AM CDT [id number] CHIEF COMPLAINT/REASON FOR VISIT 11-year-old well-child visit [...] is due in 1 year. Venus Peoples M.D./lesly Electronically Signed By: VENUS PEOPLES MD On: 02/03/2012 03:20 PM Modified by and Electronically Signed by: VENUS PEOPLES MD On: 02/03/2012 03:20 PM Source: [facility] MHSDOLBEYNONRADSYS Document Id: [id number] documented in this encounter Procedure Notes Chantell [...] CHANTELL PISANO - 01/28/2012 15:27 CDT Source: [employer] Document Id: [id number] Chantell Pisano - 01/28/2012 3:22 PM CDT Vision Testing Vision Testing Entered On: 01/28/2012 15:23 CDT Performed On: 01/28/2012 15:22 CDT by CHANTELL PISANO Vision Testing Corrective Lenses : Glasses Eye, Right with Correction : 20/25 Eye, Left w/Correction : 20/30 CHANTELL PISANO - 01/28/2012 15:22 CDT Source: [employer] Document Id: [id number] documented in this encounter Miscellaneous Notes Miscellaneous - Venus Peoples M.D. - 01/28/2012 3:48 PM CDT Ambulatory Patient Summary [address] [place] [address] Visit Information Name: AMAIRANI MARTINEZ Current Date: [...] No Appointments found Your Goals/Additional instructions: Source: [facility] POWERCHART Document Id: [id number] Miscellaneous - Venus Peoples M.D. - 01/28/2012 3:48 PM CDT Ambulatory Depart Summary [address] [address] Visit Information Name: AMAIRANI MARTINEZ Visit Date: [...] your provider for clarification. Additional Information: Source: [facility] POWERCHART Document Id: [id number] Miscellaneous - Chantell Pisano - 01/28/2012 3:20 PM CDT Pediatric Buffing Wheel Former Automatic Intake/History Pediatric Buffing Wheel Former Automatic Intake/History Entered On: 01/28/2012 15:22 CDT Performed [...] CHANTELL UMANA; Reviewed Date: 01/28/201215:20 CDT Source: [facility] POWERCHART Document Id: [id number] documented in this encounter Plan of Treatment Not on filedocumented as of this encounter Visit Diagnoses Not on filedocumented in this encounter
--- OUTSIDE RECORDS SUMMARY | 2022-07-19 14:55 | XMS_ITS | Encounter Summary ---
:2000 Author Organization [facility] Address [address] [place] [address] Care Team Providers Name Role Phone Unavailable Primary Care Provider Unavailable Encounter Details Date Type Department Care Team Description 11/15/2013 Hospital Encounter HX [facility] Tha Ching M.D. [address] [place], [place] [phone] (Wo rk) Social History Tobacco Use Types Packs/Day Years Used Date Smoking Tobacco: Never Assessed Sex Assigned at Date Recorded Not on file documented as of this encounter Plan of Treatment Not on filedocumented as of this encounter Visit Diagnoses Not on filedocumented in this encounter
--- OUTSIDE RECORDS SUMMARY | 2022-07-19 14:55 | XMS_ITS | Encounter Summary ---
:2000 Author Organization [facility] Address [address] [place] [address] Care Team Providers Name Role Phone Unavailable Primary Care Provider Unavailable Encounter Details Date Type Department Care Team Description 05/14/2010 Hospital Encounter HX [facility] AUDIOLOGY Mojgan Felix am, Au.D. Social History Tobacco Use Types Packs/Day Years Used Date Smoking Tobacco: Never Assessed Sex Assigned at Date Recorded Not on file documented as of this encounter Progress Notes Stas Felix - 05/14/2010 12:00 AM CDT [id number] IMPRESSION / REPORT / PLAN She is [...] By:STAS FELIX On 05/18/2010 05:05 PM Source: [facility] MHSDOLBEYNONRADSYS Document Id: [id number] documented in this encounter Plan of Treatment Not on filedocumented as of this encounter Visit Diagnoses Not on filedocumented in this encounter
--- OUTSIDE RECORDS SUMMARY | 2022-07-19 14:55 | XMS_ITS | Encounter Summary ---
:2000 Author Organization [facility] Address [address] [place] [address] Care Team Providers Name Role Phone Unavailable Primary Care Provider Unavailable Encounter Details Date Type Department Care Team Description 05/04/2010 Hospital Encounter HX [facility] PEDIATRIC Tom Peoples M.D. [address] [place], [place] [address] (Wo rk) Social History Tobacco [...] Peoples M.D. - 05/04/2010 12:00 AM CDT [id number] CHIEF COMPLAINT/REASON FOR VISIT Continued ear drainage. [...] for 05/14/2010. KSL/sks Signed Venus Peoples M.D. Physical Geographer Electronically Signed By:VENUS PEOPLES MD On 05/07/2010 04:01 pm Source: [facility] MHSDOLBEYNONRADSYS Document Id: [id number] documented in this encounter Miscellaneous Notes Miscellaneous - Chantell Sandoval - 05/04/2010 10:42 AM CDT Pediatric Core Drill Operator Helper Intake/History Pediatric Core Drill Operator Helper Intake/History Entered On: 05/04/2010 10:44 CDT Performed [...] CHANTELL UMANA; Reviewed Date: 04/21/201015:33 CDT [facility] Document Id: [id number] CDT!16 documented in this encounter Plan of Treatment Not on filedocumented as of this encounter Visit Diagnoses Not on filedocumented in this encounter
--- OUTSIDE RECORDS SUMMARY | 2022-07-19 14:55 | XMS_ITS | Encounter Summary ---
:2000 Author Organization [facility] Address [address] [place] [address] Care Team Providers Name Role Phone Unavailable Primary Care Provider Unavailable Encounter Details Date Type Department Care Team Description 09/28/2010 Hospital Encounter [facility]X [facility] PEDIATRIC Tom Peoples M.D. [address] [place], [place] [address] (Wo rk) Social History Tobacco [...] (77 lb 9.6 oz) 09/28/2010 11:18 AM TOMATO PASTE MAKER Height - - Body Mass Index - - documented in this encounter Progress Notes Venus Peoples M.D. - 09/28/2010 12:00 AM CST [id number] CHIEF COMPLAINT/ REASON FOR VISIT Fevers. HISTORY [...] difficulty breathing. KSL/sks Signed Venus Peoples M.D. Disintegrator Feeder Electronically Signed By: VENUS PEOPLES MD On: 10/02/2010 04:21 Source: [facility] MHSDOLBEYNONRADSYS Document Id: [id number] TO PASTE MAKER documented in this encounter Miscellaneous Notes Miscellaneous - Venus Peoples M.D. - 09/28/2010 11:34 AM CST Ambulatory Patient Summary [address] [address] Visit Information Name: AMAIRANI MARTINEZ Current Date: 09/28/2010 11:34:05 Primary Care Provider: VENUS PEOPLES MD [phone] Your Medications Here is a list of [...] No Appointments found Your Goals/Additional instructions: Source: [employer] Document Id: [id number] Venus Woodson M.D. - 09/28/2010 11:34 AM CST Ambulatory Depart Summary [address] [address] Visit Information Name: DONYA AMAIRANICHESTER MOBLEY Current Date: 09/28/2010 11:34:05 Primary Care Provider: VENUS PEOPLES MD [phone] AMAIRANI MARTINEZ has been given the following [...] to the patient and/or family, guardian/caregiver. Source: [employer] Document Id: [id number] Chantell Sanders - 09/28/2010 11:18 AM CST Pediatric Slot Floor Supervisor Intake/History Pediatric Slot Floor Supervisor Intake/History Entered On: 09/28/2010 11:20 TOMATO PASTE MAKER Performed On: 09/28/2010 11:18 TOMATO PASTE MAKER by CHANTELL UMANA Intake Ambulatory Intake Additional Information: started Thurs. Temps 102, ibuprofen and cough med at night. last night emesis after coughing. scarred tms, ow nml exam VENUS PEOPLES MD - 09/28/2010 11:33 TOMATO PASTE MAKER Chief Complaint: fever, cough x 4 days Temperature Core: 37.8C(Converted to: 100.0DegF) Apical Heart Rate: 96/min (HI) Respiratory Rate: 22/min Systolic Blood Pressure: 96mmHg Diastolic Blood Pressure: 54mmHg NIBP Mean: 68mmHg BP Location: Right upper extremity Actual Weight: 35.200kg(Converted to: 77lb 10oz) Dosing Weight Clinic: 35.20kg CHANTELL UMANA - 09/28/2010 11:18 TOMATO PASTE MAKER Subjective Pain Symptoms: No CHANTELL UMANA - 09/28/2010 11:18 TOMATO PASTE MAKER Dependent Habits Tobacco Use/Currently Using: No CHANTELL UMANA - 09/28/2010 11:18 TOMATO PASTE MAKER Allergy Allergies (Active) NKA Estimated Onset Date: Unspecified ; Created By: CHANTELL UMANA; Reaction Status: Active ; Category: Drug ; Substance: NKA ; Type: Allergy ; Updated By: CHANTELL UMANA; Reviewed Date: 09/28/201011:18 TOMATO PASTE MAKER Source: [facility] POWERCHART Document Id: [id number] TOMATO PASTE MAKER!3 TO PASTE MAKER documented in this encounter Plan of Treatment Not on filedocumented as of this encounter Visit Diagnoses Not on filedocumented in this encounter
--- OUTSIDE RECORDS SUMMARY | 2022-07-19 14:55 | XMS_ITS | Encounter Summary ---
:2000 Author Organization [facility] Address [address] [place] [address] Care Team Providers Name Role Phone Unavailable Primary Care Provider Unavailable Encounter Details Date Type Department Care Team Description 02/15/2012 Hospital Encounter HX [facility] PEDIATRIC Tom Wellington M.D. [address] [place], [place] [address] (Wo rk) Social History Tobacco [...] Wellington M.D. - 02/15/2012 12:00 AM CDT [id number] CHIEF COMPLAINT/REASON FOR VISIT Ear pain HISTORY [...] MD On: 02/17/2012 08:47 AM Source: [facility] MHSDOLBEYNONRADSYS Document Id: [id number] documented in this encounter Miscellaneous Notes Miscellaneous - Venus Wellington M.D. - 02/15/2012 10:41 AM CDT Ambulatory Patient Summary [address] [address] Visit Information Name: AMAIRANI MARTINEZ Current Date: [...] Appointments found Your Goals/Additional instructions: Source: [facility] POWERCHART Document Id: [id number] Miscellaneous - Venus Wellington M.D. - 02/15/2012 10:41 AM CDT Ambulatory Depart Summary [address] [place] [address] Visit Information Name: AMAIRANI MARTINEZ Visit Date: 02/15/2012 10:41:53 Attending Provider: VEUNS WELLINGTON MD Primary Care Provider: VENUS WELLINGTON [...] your provider for clarification. Additional Information: Source: [facility] [employer] Document Id: [id number] Miscellaneous - Nikki Pisano - 02/15/2012 10:29 AM CDT Pediatric Landscape Architecture Teacher Intake/History Pediatric Landscape Architecture Teacher Intake/History Entered On: 02/15/2012 10:31 CDT Performed [...] NIKKI UMANA; Reviewed Date: 02/15/201210:28 CDT Source: [facility] [employer] Document Id: [id number] documented in this encounter Plan of Treatment Not on filedocumented as of this encounter Visit Diagnoses Not on filedocumented in this encounter
--- OUTSIDE RECORDS SUMMARY | 2022-07-19 14:55 | XMS_ITS | Encounter Summary ---
:2000 Author Organization [facility] Address [address] [place] [address] Care Team Providers Name Role Phone Unavailable Primary Care Provider Unavailable Encounter Details Date Type Department Care Team Description 09/05/2013 Hospital Encounter HX [facility] Sa manolo Farr M.D. [phone] (Wo rk) Social History Tobacco Use Types [...] (130 lb 1.1 oz) 09/05/2013 8:24 AM CHIEF HYDROELECTRIC STATION OPERATOR Height - - Body Mass Index - - documented in this encounter Progress Notes Shayy Farr M.D. - 09/05/2013 8:21 AM CST [id number] CHIEF COMPLAINT/REASON FOR VISIT Sore throat, cough, [...] test negative. IMPRESSION/REPORT/PLAN Viral illness. Last fever manager qa was 5 hours prior to the visit. May use ibuprofen or acetaminophenfor fever and discomfort. Best not to use true aspirin. The illness should run its course. Shayy Farr M.D./ayaan Electronically Signed By: SHAYY FARR MD On: 09/06/2013 11:02 AM Source: [facility] MHSDOLBEYNONRADSYS Document Id: [id number] F HYDROELECTRIC STATION OPERATOR documented in this encounter Miscellaneous Notes Miscellaneous - Shayy Farr M.D. - 09/05/2013 10:18 AM CST Ambulatory Patient Summary [address] [address] Visit Information Name: AMAIRANI MARTINEZ [facility] Number: [id number] Current Date: 09/05/2013 10:18:56 Physicians Attending Provider: SHAYY FARR MD Primary Care Provider: VENUS WELLINGTON MD DONYAINESSAAMAIRANI ITZ has been given the following list [...] appointment detail needed. Your Goals/Additional instructions: Source: [facility] POWERCHART Document Id: [id number] F HYDROELECTRIC STATION OPERATOR Miscellaneous - Shayy Farr M.D. - 09/05/2013 10:18 AM CST Ambulatory Depart Summary [address] [address] Visit Information Name: AMAIRANI MARTINEZ [facility] Number: [id number] Visit Date: 09/05/2013 10:18:55 Attending Provider: SHAYY FARR MD Primary Care Provider: VENUS WELLINGTON [...] in case of emergency. Additional Information: Source: [facility] [employer] Document Id: [id number] F HYDROELECTRIC STATION OPERATOR Kya - Shayy Farr M.D. - 09/05/2013 8:52 AM CST School Excuse 05 September 2013 AMAIRANI MARTINEZ [address] [facility] [id number] Dear AMAIRANI MARTINEZ, You were examined in [...] free of fever for 24 hours. Sincerely, SHAYY FARR [address] [place] [address] Electronic Signature Electronically Signed By: SHAYY FARR MD On: 05 September 2013 This document has images extracted. Source: [facility] POWERCHART Document Id: [id number] Kya - Willow Christie L.P.NRodney - 09/05/2013 8:24 AM CST Pediatric Telecommunications Switch Technician Intake/History Pediatric Telecommunications Switch Technician Intake/History Entered On: 09/05/2013 8:28 CHIEF HYDROELECTRIC STATION OPERATOR Performed On: 09/05/2013 8:24 CHIEF HYDROELECTRIC STATION OPERATOR by WILLOW CHRISTIE Intake Chief Complaint : c/o fever, [...] scale Dosing Weight Clinic : 59 kg WILLOW CHRISTIEE - 09/05/2013 8:24 CHIEF HYDROELECTRIC STATION OPERATOR General Info Languages : Comoran WILLOW CHRISTIEE - 09/05/2013 8:24 CHIEF HYDROELECTRIC STATION OPERATOR Subjective Pain Symptoms : No WILLOW CHRISTIEE - 09/05/2013 8:24 CHIEF HYDROELECTRIC STATION OPERATOR Dependent Habits Tobacco Use/Currently Using : No Exposure to Tobacco Smoke : Care provider denies smoking in home Smoking Status : Never smoker PRATIK, WILLOW TRUJILLO - 09/05/2013 8:24 CHIEF HYDROELECTRIC STATION OPERATOR Source: [facility] POWERCHART Document Id: [id number] CHIEF HYDROELECTRIC STATION OPERATOR!23 F HYDROELECTRIC STATION OPERATOR documented in this encounter Plan of Treatment Not on filedocumented as of this encounter Procedures Procedure Name Priority Date/Time Associated Diagnosis Comme nts RAPID STREP A Routine 09/05/2013 8:31 AM Results for this SCREEN CHIEF HYDROELECTRIC STATION OPERATOR procedure are i n the results section. RAPID STREP A Routine 09/05/2013 8:31 AM Results for this SCREEN CHIEF HYDROELECTRIC STATION OPERATOR procedure are i n the results section. documented in this encounter Results Rapid Strep A Screen (09/05/2013 8:31 AM CHIEF HYDROELECTRIC STATION OPERATOR) [facility] gist Method Time Signature HXRapid Strep POWERCHART Confirmation HXFinal Negative POWERCHART Specimen Anatomical Collection Method Collection Time Receive d Time (Source) Location / / Volume Laterality Throat 09/05/2013 8:31 AM 4 8:31 CHIEF HYDROELECTRIC STATION OPERATOR AM CHIEF HYDROELECTRIC STATION OPERATOR Shayy Farr M.D. LAB MICROBIOLOGY - GENERAL O RDERABLES Performing Organization Address City/State/ZIP Code Phon e Number POWERCHART Rapid Strep A Screen (09/05/2013 8:31 AM CHIEF HYDROELECTRIC STATION OPERATOR) [facility] gist Method Time Signature HXStrep A POWERCHART Screen Rapid HXFinal Negative for POWERCHART Strep Group A by rapid screen. HXFinal Culture POWERCHART confirmation to follow. Specimen (Source) Anatomical Collection Method Collection Time Re ceived Time Location / / Volume Laterality Throat 09/05/2013 8:31 AM CHIEF HYDROELECTRIC STATION OPERATOR Shayy Farr M.D. LAB MICROBIOLOGY - GENERAL O RDERABLES Performing Organization Address City/State/ZIP Code Phon e Number POWERCHART documented in this encounter Visit Diagnoses Not on filedocumented in this encounter
--- OUTSIDE RECORDS SUMMARY | 2022-07-19 14:55 | XMS_ITS | Encounter Summary ---
:2000 Author Organization [facility] Address [address] [place] [address] Care Team Providers Name Role Phone Unavailable [...] Provider Ser - 05/14/2010 12:00 AM CDT [id number] IMPRESSION/REPORT/PLAN 1. Chronic suppurative otitis media of [...] of the hearing and gross clinical speech studio receptionist thresholds are at least close to [...] limits. The tongue is within normal limits. Campbell's and Stensen's ducts are within normal limits [...] II, M.D. ENT CC: Amanda Peoples M.D. Software Educator [address] [place] [address] Electronically Signed By:JORDYN KNIGHT On 05/19/2010 11:26 am Modified by:JORDYN KNIGHT On 05/19/2010 11:26 am Source: [id number] Document Id: [id number] documented in this encounter Nursing Notes Conversion, Historical Provider Ser - 05/19/2010 10:57 AM CDT ENT Surgery Examine and clean ears, and removal (L) ear tube scheduled for 05/28/10 at [facility] with Dr. Knight. Insurance referral completed. No prior authorization is required per [facility] policy. Electronically Signed By:MIESHA ALLISON LPN On 05/19/2010 10:59 am Source: [facility] [employer] Document Id: [id number] documented in this encounter Miscellaneous Notes Miscellaneous - Conversion, Historical Provider Ser - 05/14/2010 2:20 PM CDT Pediatric Clinical Advisor Intake/History Pediatric Clinical Advisor Intake/History Entered On: 05/14/2010 14:22 CDT Performed [...] CHANTELL UMANA; Reviewed Date: 05/14/201014:19 CDT Source: [facility] [employer] Document Id: [id number] CDT!14 documented in this encounter Plan of Treatment Not on filedocumented as of this encounter Visit Diagnoses Not on filedocumented in this encounter
--- NOTE | 2022-07-19 15:00 | CRLHL7_ITS ---
For Patients: As a result of the Century Cures Act, medical imaging exams and procedure reports are released immediately into your electronic medical record. You may view this report before your referring provider. If you have questions, please contact your health care provider. INDICATION: Pelvic pain TECHNIQUE: Ultrasound pelvis vaginal only COMPARISON: None FINDINGS: Uterus: 0.6 centimeter x 3.0 centimeter x 3.8 centimeter. Normal echotexture of the myometrium. No masses. Endometrium: Transvaginal imaging was performed to better evaluate the endometrium. Millimeters in thickness. No sign of endometrial mass or fluid. Right ovary: 3.6 centimeter x 2.1 centimeter x 2.0 centimeter. No ovarian or adnexal masses. Normal arterial and venous blood flow. Left ovary: 0.9 centimeter x 1.2 centimeter x 1.8 centimeter. No ovarian or adnexal masses. Normal arterial and venous blood flow. 1.6 centimeter right paraovarian cyst. Cul-de-sac: No significant free fluid. IMPRESSION: 1.6 centimeter right paraovarian cyst, otherwise unremarkable pelvic ultrasound. Dictated by Vasyl Heck MD @ 07/19/2022 6:58:00 PM (Electronically Signed)
== END 2022-07-19 14:52 | disposition home or self-care (01) ==
LOC: US 14:52
PROVIDERS: PCP Family Medicine; Visit Provider Obstetrics & Gynecology
DX: R10.2 Pelvic and perineal pain (principal); N83.201 Unspecified ovarian cyst, right side
CPT/HCPCS: 76830

== ENCOUNTER 2022-08-27 15:22 | Outpatient (CLI) | payer OTHER, MEDICAID, SELFPAY ==
[2022-08-29 22:32] LABS: Prolactin 7.7 ng/mL (2.8-29.2)
[2022-08-30 00:54] LABS: Beta-2-Microglob Serum/Plasma 1.4 mg/L (0.8-2.4)
[2022-08-30 01:00] LABS: Cardiolipin Antibody IgA <10 APL (<=11); Cardiolipin Antibody IgG <10 GPL (<=14); Cardiolipin Antibody IgM <10 MPL (<=12)
[2022-09-04 17:19] LABS: Prothrombin Time 13.1 sec (12.0-15.5); dRVVT Screen 38 sec (33-44)
== END 2022-08-27 15:23 | disposition home or self-care (01) ==
PROVIDERS: PCP Family Medicine; Visit Provider Obstetrics & Gynecology
DX: N39.0 Urinary tract infection, site not specified (principal); N89.8 Other specified noninflammatory disorders of vagina; N96 Recurrent pregnancy loss; R30.0 Dysuria
CPT/HCPCS: 82232; 84146; 84443; 85610; 85613; 85730; 86147; 87086; 87491; 87591; 88262

== ENCOUNTER 2022-09-15 11:45 | Outpatient (CLI) | payer OTHER, MEDICAID, SELFPAY ==
[2022-09-15 15:24] LABS: HCG Quantitative* < 2.39 mIU/mL
== END 2022-09-15 11:46 | disposition home or self-care (01) ==
LOC: NFLDREF 11:45
PROVIDERS: PCP Family Medicine; Visit Provider Obstetrics & Gynecology
DX: Z87.59 Personal history of other complications of pregnancy, childbirth and the puerperium (principal)
CPT/HCPCS: 84702

== ENCOUNTER 2022-11-09 05:35 | Emergency (ER) | payer OTHER, MEDICAID, SELFPAY ==
[2022-11-09 05:40] VITALS: BP 134/80; PULSE 106; RESP 20; TEMP 36.6; O2SAT 98; BMI 27.5
--- NOTE | 2022-11-09 05:45 | ED_ITS ---
HPI - General Adult General Time Seen by Provider: 05:45 Date Seen: 11/09/22 Chief complaint: Cough Stated complaint: Cold symptoms/chest pain Time Seen by Provider: 11/09/22 05:44 Source: patient, RN notes reviewed and old records reviewed Mode of arrival: ambulatory Limitations: no limitations History of Present Illness HPI narrative: Molly is a very pleasant 22-year-old female who currently denies any who comes to the emergency room with 8 days of sore throat cough and worsening symptoms. Patient states initially she had the onset of a sore throat 1 week ago associated with lymph node swelling on the right. She notes that has improved somewhat but now she has had chest pain for the past 2 days. While it is associated with breathing it is always present. She states that the shortness of breath is new within the last 48 hours as well. Patient notes that she has been able to eat or drink but it has not been a lot of sustenance. She denies a fever but stated her boyfriend felt that she was warm 1 night. She notes no vomiting or diarrhea. She states her nose is running constantly. She was seen in urgent care yesterday at which time a COVID and influenza were negative. She had no further tests at that time. She denies lower extremity calf pain edema or history of DVT. Related Data Previous Rx's Medication Instructions Recorded norgestimate 0.25 mg-ethinyl 1 tab PO QDAY #84 tabs 08/27/22 estradiol 35 mcg tablet (Sprintec (28)) Allergies Allergy/AdvReac Type Severity Reaction Status Date / Time No Known Allergies Allergy Verified 11/05/22 15:11 Review of Systems Status of ROS: Reports: 10 or more systems reviewed and unremarkable except as noted in History and below Const: Reports: fatigue; Denies: fever or chills Eyes: Denies: change in vision ENMT: Reports: throat pain, neck pain (On the right) and difficulty swallowing; Denies: hoarseness Cardio: Reports: chest pain and shortness of breath with exertion; Denies: palpitations, swelling of feet/ankles or lightheadedness Resp: Reports: shortness of breath and cough GI: Reports: difficulty swallowing; Denies: abdominal pain, nausea, vomiting or diarrhea : Denies: painful urination or urinary frequency Musculo: Reports: neck pain (On the right); Denies: extremity pain Neuro: Denies: headache or numbness in extremities Endo: Reports: fatigue [facility] Medical History History of heavy vaginal bleeding ?Z87.42 - Personal history of other diseases of the female genital tract (ICD-10) Previous recurrent miscarriages affecting , antepartum ?O26.20 - care for patient with recurrent loss, unspecified trimester (ICD-10) URI (upper respiratory infection) ?J06.9 - Acute upper respiratory infection, unspecified (ICD-10) Surgical History History of tonsillectomy (2004) ?Z90.89 - Acquired absence of other organs (ICD-10) History of tympanostomy (2003) ?Z98.890 - Other specified postprocedural states (ICD-10) History of umbilical hernia repair (2004) ?Z98.890 - Other specified postprocedural states (ICD-10) ?Z87.19 - Personal history of other diseases of the digestive system (ICD-10) Status post laparoscopic appendectomy ?Z90.49 - Acquired absence of other specified parts of digestive tract (ICD- 10) Family History Paternal Grandfather Family history of CABG, Onset Age: 50 Maternal Grandmother Diabetes Pancreatic cancer Social History Narrative: does not drink alcohol does not exercise non-smoker Smoking Status: Never smoker Do you use any of these nicotine containing products: None How often do you have a drink containing alcohol: never How often do you have six or more drinks on one occasion: Never AUDIT-C Alcohol total score: 0 Non-prescribed substance use: denies use service: No Exam Narrative: Exam Narrative: Molly is alert and oriented. She has a mildly ?hot potato? type voice. She is protecting her airway and there is no drooling or spitting up saliva. Eyes are clear. Oral cavity with moist mucous membranes. Posterior oropharynx is visualized. She has a 2 cm mobile and slightly tender swelling on the right mid anterior cervical chain. Heart is with a tachycardic rate but normal rhythm. Lungs are clear in all lung degroot. Pressing of the chest wall healed slight tenderness. No crepitus noted no subcutaneous emphysema noted Abdomen is soft nontender. Lower extremity show no calf tenderness negative Homans sign and no swelling. Const: Vital Signs, click to edit/add: Vital Signs - 24 hr 11/09/22 05:40 11/09/22 06:47 Temperature 98 F Pulse Rate [Left P ulse Oximeter] 106 H 93 Respiratory Rate 20 20 Blood Pressure [Le ft Upper Arm] 134/80 Pulse Oximetry 98 98 Oxygen Delivery Me thod Room Air Room Air Documenting provider has reviewed patient's vital signs: yes Course Course Hospital Course: Differential diagnosis includes but is not limited to viral syndrome, mono, pneumonia, PE, bronchitis, pericarditis. We will obtain EKG and troponin, chest x-ray, place an IV and obtain blood work to include a CBC, comprehensive, CRP, mono and urinalysis. Will give patient 1 L of normal saline and 15 mg of IV Toradol. Reevaluation(s) Reevaluation #1: Patient noted to be feeling improved. Strep is negative. Vital Signs Vital signs: Initial Vital Signs Temperature 98 F 11/09/22 05:40 Temperature Source Temporal Artery Scan 11/09/22 05:40 Pulse Rate 106 H 11/09/22 05:40 Pulse Rhythm Regular 11/09/22 05:40 Respiratory Rate 20 11/09/22 05:40 Blood Pressure 134/80 11/09/22 05:40 Blood Pressure Mean 98 11/09/22 05:40 Blood Pressure Position Supine 11/09/22 05:40 Pulse Oximetry 98 11/09/22 05:40 Oxygen Delivery Method Room Air 11/09/22 05:40 Vital Signs Temperature 98 F 11/09/22 05:40 Pulse Rate 106 H 11/09/22 05:40 Respiratory Rate 20 11/09/22 05:40 Blood Pressure 134/80 11/09/22 05:40 Pulse Oximetry 98 11/09/22 05:40 Oxygen Delivery Method Room Air 11/09/22 05:40 Temperature 98 F 11/09/22 05:40 Pulse Rate 93 11/09/22 06:47 Respiratory Rate 20 11/09/22 06:47 Blood Pressure 134/80 11/09/22 05:40 Pulse Oximetry 98 11/09/22 06:47 Oxygen Delivery Method Room Air 11/09/22 06:47 Medical Decision Making MDM Narrative Medical decision making narrative: 1. Pharyngitis-patient does have mild cough but clear lungs and chest x-ray. She has tested negative for COVID again and is negative for strep. Well this most likely represents viral illness, she has persisting symptoms and definite right-sided anterior cervical lymphadenopathy. At this time she has no difficul ty with swallowing and she states that it is actually improved somewhat. I would like to start her on Augmentin at this time and have her follow up with her primary MD tomorrow. If she has continued or worsening symptoms we may need to consider CT soft tissue neck. 2. Dehydration-patient's heart rate has improved to 80s with 1 L of normal saline. 3. Disposition-patient feeling better at this time after Toradol 15 mg IV. Will discharge patient home. Patient has not had fever during her stay here. I would ask her to return for worsening symptoms. Patient noted to have normal heart rate and no hypoxia. I do not think that this was potential PE given patient's vital signs at this time after hydration. EKG also reassuring and troponin is negative. Medical Records Medical records reviewed: Yes I reviewed the patient's medical records Lab Data Lab results reviewed: Yes I reviewed the patient's lab results Labs: Lab Results 11/09/22 11/09/22 11/09/22 Range/Units 06:00 06:05 07:00 WBC 7.89 (4.50-11.00) K/uL RBC 4.54 (4.00-5.20) m/uL Hgb 12.8 (12.0-16.0) gm/dL Hct 38.0 (33.0-51.0) % MCV 84 (80-100) fL MCH 28 (26-34) pg MCHC 34 (32-36) gm/dL RDW Coeff of Roland 12.3 (11.5-15.5) % Plt Count 299 (140-440) K/uL Neut % (Auto) 62.1 (42.0-72.0) % Lymph % (Auto) 25.6 (20-44) % [place] % (Auto) 10.6 (0.0-11.0) % Eos % (Auto) 0.4 (0.0-7.0) % Baso % (Auto) 0.4 (0.0-3.0) % Neut # (Auto) 4.90 (1.7-7.0) K/uL Lymph # (Auto) 2.02 (0.90-2.90) K/uL [place] # (Auto) 0.80 (0.00-0.90) K/UL Eos # (Auto) 0.03 (0.00-0.50) K/uL Baso # (Auto) 0.03 (0.00-0.30) K/uL Sodium 136 (135-149) mmol/L Potassium 3.3 L (3.6-5.1) mmol/L Chloride 103 (96-114) mmol/L Carbon Dioxide 23 (20-32) mmol/L BUN 6 (5-24) mg/dL Creatinine 0.5 (0.5-1.5) mg/dL Estimated Creat Clear 152.40 Estimated GFR 136 ml/min Glucose 136 H (60-115) mg/dL Calcium 9.2 (8.4-10.6) mg/dL Total Bilirubin 0.4 (0.1-1.5) mg/dL AST 24 (12-35) U/L ALT 20 (4-35) U/L Alkaline Phosphatase 90 (40-150) U/L C-Reactive Protein 3.7 H (0.5-1.0) mg/dL Total Protein 7.8 (6.0-8.3) g/dL Albumin 4.4 (3.3-5.0) g/dL HCG, Qual Negative (Negative) Urine Color Yellow (Yellow) Urine Appearance Clear (Clear) Urine pH 6.0 (5.0-8.5) Ur Specific [place] 1.025 (1.000-1.030) Urine Protein Negative (Negative) Urine Glucose (UA) Negative (Negative) Urine Ketones 1+ A (Negative) Urine Blood 1+ A (Negative) Urine Nitrite Negative (Negative) Urine Bilirubin Negative (Negative) Urine Urobilinogen 0.2 (0.2-1.0) Ur Leukocyte Esterase Negative (Negative) Urine RBC 0-2 (0-2) Urine WBC 0-2 (0-5) Ur Squamous Epith Cells Few (None-Few) Amorphous Sediment Few A (None) Urine Bacteria Moderate A (None) Urine Mucus Few A (None) SARS-CoV-2 (PCR) Negative SARS-CoV-2 (Negative) Monoscreen Negative (Negative) Influenza Type A (PCR) Negative PCR FLU A (Negative) Influenza Type B (PCR) Negative PCR FLU B (Negative) RSV (PCR) Negative PCR RSV (Negative) Group A Strep DNA (Not Detectd) POC Troponin I 0.00 L (0.01-0.04) ng/ml 11/09/22 Range/Units 07:25 WBC (4.50-11.00) K/uL RBC (4.00-5.20) m/uL Hgb (12.0-16.0) gm/dL Hct (33.0-51.0) % MCV (80-100) fL MCH (26-34) pg MCHC (32-36) gm/dL RDW Coeff of Roland (11.5-15.5) % Plt Count (140-440) K/uL Neut % (Auto) (42.0-72.0) % Lymph % (Auto) (20-44) % [place] % (Auto) (0.0-11.0) % Eos % (Auto) (0.0-7.0) % Baso % (Auto) (0.0-3.0) % Neut # (Auto) (1.7-7.0) K/uL Lymph # (Auto) (0.90-2.90) K/uL [place] # (Auto) (0.00-0.90) K/UL Eos # (Auto) (0.00-0.50) K/uL Baso # (Auto) (0.00-0.30) K/uL Sodium (135-149) mmol/L Potassium (3.6-5.1) mmol/L Chloride (96-114) mmol/L Carbon Dioxide (20-32) mmol/L BUN (5-24) mg/dL Creatinine (0.5-1.5) mg/dL Estimated Creat Clear Estimated GFR ml/min Glucose (60-115) mg/dL Calcium (8.4-10.6) mg/dL Total Bilirubin (0.1-1.5) mg/dL AST (12-35) U/L ALT (4-35) U/L Alkaline Phosphatase (40-150) U/L C-Reactive Protein (0.5-1.0) mg/dL Total Protein (6.0-8.3) g/dL Albumin (3.3-5.0) g/dL HCG, Qual (Negative) Urine Color (Yellow) Urine Appearance (Clear) Urine pH (5.0-8.5) Ur Specific [place] (1.000-1.030) Urine Protein (Negative) Urine Glucose (UA) (Negative) Urine Ketones (Negative) Urine Blood (Negative) Urine Nitrite (Negative) Urine Bilirubin (Negative) Urine Urobilinogen (0.2-1.0) Ur Leukocyte Esterase (Negative) Urine RBC (0-2) Urine WBC (0-5) Ur Squamous Epith Cells (None-Few) Amorphous Sediment (None) Urine Bacteria (None) Urine Mucus (None) SARS-CoV-2 (PCR) (Negative) Monoscreen (Negative) Influenza Type A (PCR) (Negative) Influenza Type B (PCR) (Negative) RSV (PCR) (Negative) Group A Strep DNA NOT DETECTED (Not Detectd) POC Troponin I (0.01-0.04) ng/ml Imaging Data Chest x-ray: Attestation: I have reviewed the pertinent imaging results. My impression: No obvious infiltrates Radiologist's impression: ardiovasculature and mediastinum:? Heart size and vasculature are normal in caliber and appearance.? Lungs and pleural spaces:? Lungs are clear.? No sign of infiltrate or mass. ?No sign of pleural effusion.? No pneumothorax.? Bones and soft tissues:? No significant findings. IMPRESSION: No acute findings and no significant changes from the prior exam. ECG Data Attestation: I personally reviewed and interpreted this ECG as follows: Prior ECG tracings: not available for review Interpretation: EKG by my read shows sinus tachycardia at a rate of 103. T-wave inversion noted in 3 AVF and V3. QT is within normal limits. Discharge Plan Discharge Clinical Impression: Pharyngitis Patient Disposition: Home, Self-Care Condition: Improved Additional Instructions: Augmentin 875 mg twice daily for 10 days. Please follow-up with primary MD tomorrow for a recheck. Return to the emergency room if you have increased swelling of the neck, difficulty swallowing or actually have worsening symptoms. Prescriptions: No Action norgestimate-ethinyl estradiol [Sprintec (28)] 0.25-35 mg-mcg tablet 1 tab PO QDAY Qty: 84 4RF Follow Up/Referrals: Tim Shane MD [Primary Care Provider] - Stand Alone Forms: [employer] Info Instructions
--- NOTE | 2022-11-09 05:58 | CRLHL7_ITS ---
For Patients: As a result of the Century Cures Act, medical imaging exams and procedure reports are released immediately into your electronic medical record. You may view this report before your referring provider. If you have questions, please contact your health care provider. INDICATION: Chest pain and cough. TECHNIQUE: Chest 1 views. COMPARISON: 08/13/2021. FINDINGS: Cardiovasculature and mediastinum: Heart size and vasculature are normal in caliber and appearance. Lungs and pleural spaces: Lungs are clear. No sign of infiltrate or mass. No sign of pleural effusion. No pneumothorax. Bones and soft tissues: No significant findings. IMPRESSION: No acute findings and no significant changes from the prior exam. Dictated by Juaquin Canales MD @ 11/09/2022 8:06:24 AM (Electronically Signed)
[2022-11-09] MEDS: KETOROLAC 15 MG/ML inj IVP (06:13)
[2022-11-09] MEDS: 0.9 % SODIUM CHLORIDE 1000 ml 1,000 ML IV (06:13)
[2022-11-09 06:15] LABS: Basophils Absolute Auto 0.03 K/uL (0.00-0.30); Basophils Percent Auto 0.4 % (0.0-3.0); Eosinophils Absolute Auto 0.03 K/uL (0.00-0.50); Eosinophils Percent Auto 0.4 % (0.0-7.0); Hemoglobin* 12.8 gm/dL (12.0-16.0); Immature Granulocytes Abs Auto 0.07 K/uL (0.00-0.30); Immature Granulocytes Pct Auto 0.9 %; Lymphocytes Absolute Auto 2.02 K/uL (0.90-2.90); Lymphocytes Percent Auto 25.6 % (20-44); Mean Corpuscular HGB Conc 34 gm/dL (32-36); Mean Corpuscular Hemoglobin 28 pg (26-34); Mean Corpuscular Volume 84 fL (80-100); Monocytes Percent Auto 10.6 % (0.0-11.0); Neutrophils Percent Auto 62.1 % (42.0-72.0); Platelet Count* 299 K/uL (140-440); RDW Coefficient of Variation % 12.3 % (11.5-15.5); Red Blood Count 4.54 m/uL (4.00-5.20); White Blood Count* 7.89 K/uL (4.50-11.00)
[2022-11-09 06:17] LABS: Slide Review Reflex No
[2022-11-09 06:24] LABS: Mono Screen* Negative (Negative)
[2022-11-09 06:26] LABS: Albumin* 4.4 g/dL (3.3-5.0); Chloride* 103 mmol/L (96-114); Sodium* 136 mmol/L (135-149)
[2022-11-09 06:27] LABS: Potassium* 3.3 mmol/L (3.6-5.1)
[2022-11-09 06:28] LABS: Creatinine* 0.5 mg/dL (0.5-1.5); Estimated Glomerular Filt Rate 136 ml/min
[2022-11-09 06:29] LABS: Alanine Aminotransferase* 20 U/L (4-35); Alkaline Phosphatase* 90 U/L (40-150); Aspartate Amino Transferase* 24 U/L (12-35); Bilirubin Total* 0.4 mg/dL (0.1-1.5); Blood Urea Nitrogen* 6 mg/dL (5-24); Carbon Dioxide* 23 mmol/L (20-32); Total Protein* 7.8 g/dL (6.0-8.3)
[2022-11-09 06:30] LABS: Calcium* 9.2 mg/dL (8.4-10.6); Glucose* 136 mg/dL (60-115)
[2022-11-09 06:32] LABS: C Reactive Protein* 3.7 mg/dL (0.5-1.0)
[2022-11-09 06:37] LABS: HCG Qualitative Serum* Negative (Negative)
[2022-11-09 06:47] VITALS: PULSE 93; RESP 20; O2SAT 98
[2022-11-09 06:51] LABS: PCR FLU A Negative PCR FLU A (Negative); PCR FLU B Negative PCR FLU B (Negative); PCR RSV Negative PCR RSV (Negative)
[2022-11-09 06:59] LABS: SARS PCR* Negative SARS-CoV-2 (Negative)
[2022-11-09 07:25] LABS: Appearance Urine Clear (Clear); Bilirubin Urine Negative (Negative); Blood Urine 1+ (Negative); Color Urine Yellow (Yellow); Glucose Urine Negative (Negative); Ketones Urine 1+ (Negative); Leukocyte Esterase Urine Negative (Negative); Nitrite Urine Negative (Negative); Protein Urine Negative (Negative); Specific Gravity Urine 1.025 (1.000-1.030); Urobilinogen Urine 0.2 (0.2-1.0)
[2022-11-09 07:33] LABS: Amorphous Sediment Urine Few; Bacteria Urine Moderate; RBC Urine 0-2 (0-2); Squamous Epithelial Cell Urine Few (None-Few); WBC Urine 0-2 (0-5)
[2022-11-09 07:34] LABS: Mucus Urine Few
[2022-11-09 08:04] LABS: Strep A DNA Probe* NOT DETECTED (Not Detectd)
[2022-11-09 09:02] VITALS: BP 128/78; PULSE 78; RESP 18; TEMP 37.1; O2SAT 98
== END 2022-11-09 09:04 | disposition home or self-care (01) ==
PROVIDERS: Emergency Provider Family Medicine; PCP Family Medicine
DX: J02.9 Acute pharyngitis, unspecified (principal); E86.0 Dehydration
CPT/HCPCS: 36415; 71045; 80053; 81001; 84484; 84703; 85025; 86140; 86308; 87086; 87631; 87651; 93005; 96374; 99284; 99285; J1885; J7030

== ENCOUNTER 2023-01-27 06:19 | Emergency (ER) | payer OTHER, MEDICAID, SELFPAY ==
[2023-01-27 06:29] VITALS: BP 124/77; PULSE 90; RESP 18; TEMP 36.6; O2SAT 100; BMI 26.9
--- NOTE | 2023-01-27 06:42 | ED.GENADULT ---
HPI - General Adult General Chief complaint: Nausea/Vomiting Stated complaint: Vomiting Time Seen by Provider: 01/27/23 06:26 Source: patient Mode of arrival: ambulatory Limitations: no limitations History of Present Illness HPI narrative: 22-year-old female with a 3 day history of nausea and vomiting, 2 week history of intermittent diarrhea. Last night, had a little bit of blood streaking in her vomit. Denies that she has been able to hold down solid food for the last couple days. Has not tried anti nausea medicine, Pepto or other stomach acid medications. Has not tried Imodium for the diarrhea. No antibiotic use, no known illness exposures, no pertinent travel. History of prior appendectomy, no other abdominal surgeries. No prior history of similar symptoms. No fevers. No blood in her stools. No abdominal pain. Scissor past medical history is benign, no major long-term health problems. Denies long-term medications, no allergies. No tobacco use. ROS notable for the GI symptoms and a little bit of sore throat and irritation which she attributes to vomiting, otherwise denies times 12 systems. Clinic note from 3 days ago reviewed, no red flags, was not vomiting at that time. Related Data Previous Rx's Medication Instructions Recorded norgestimate 0.25 mg-ethinyl 1 tab PO QDAY #84 tabs 08/27/22 estradiol 35 mcg tablet (Sprintec (28)) triamcinolone acetonide 0.1 % 1 applic topical BID PRN eczema 01/25/23 topical cream #30 grams Allergies Allergy/AdvReac Type Severity Reaction Status Date / Time No Known Allergies Allergy Verified 01/27/23 06:29 [facility] Medical History Rash ?R21 - Rash and other nonspecific skin eruption (ICD-10) Diarrhea ?R19.7 - Diarrhea, unspecified (ICD-10) URI (upper respiratory infection) ?J06.9 - Acute upper respiratory infection, unspecified (ICD-10) History of heavy vaginal bleeding ?Z87.42 - Personal history of other diseases of the female genital tract (ICD-10) Previous recurrent miscarriages affecting , antepartum ?O26.20 - care for patient with recurrent loss, unspecified trimester (ICD-10) Surgical History Status post laparoscopic appendectomy ?Z90.49 - Acquired absence of other specified parts of digestive tract (ICD-10) History of umbilical hernia repair (2004) ?Z98.890 - Other specified postprocedural states (ICD-10) ?Z87.19 - Personal history of other diseases of the digestive system (ICD-10) History of tympanostomy (2003) ?Z98.890 - Other specified postprocedural states (ICD-10) History of tonsillectomy (2004) ?Z90.89 - Acquired absence of other organs (ICD-10) Family History Paternal Grandfather Family history of CABG, Onset Age: 50 Maternal Grandmother Diabetes Pancreatic cancer Social History Narrative: does not drink alcohol does not exercise non-smoker Smoking Status: Never smoker Do you use any of these nicotine containing products: None How often do you have a drink containing alcohol: monthly or less How often do you have six or more drinks on one occasion: Never AUDIT-C Alcohol total score: 1 Non-prescribed substance use: denies use service: No Exam Const: Vital Signs, click to edit/add: Vital Signs - 24 hr 01/27/23 06:29 Temperature 97.8 F Pulse Rate [Pulse Oximeter] 90 Respiratory Rate 18 Blood Pressure [Le ft Upper Arm] 124/77 Pulse Oximetry 100 Oxygen Delivery Me thod Room Air Documenting provider has reviewed patient's vital signs: yes Common normals: no apparent distress General appearance: cooperative, comfortable and well kempt Other: Does not appear acutely ill HENMT: Common normals: normocephalic and head/scalp atraumatic Head and scalp: normocephalic and atraumatic Mouth: oral and palatal mucosa normal Throat: posterior oropharynx normal Eye: Common normals: conjunctivae normal General eye: normal appearance of both eyes Conjunctiva: conjunctiva(e) normal Neck & C-Spine: Common normals: full ROM and no lymphadenopathy Resp: Common normals: normal respiratory effort, no use of accessory muscles and clear to auscultation bilaterally Effort & inspection: able to speak in complete sentences Auscultation: clear to auscultation bilaterally Cardio: Common normals: regular rate, regular rhythm, S1 normal heart sound, S2 normal heart sound and no murmurs Rate: regular rate Rhythm: regular rhythm Heart sounds: S1 normal and S2 normal GI: Common normals: Normal to inspection, nondistended, normoactive bowel sounds present, soft to palpation, no hepatosplenomegaly and no masses Palpation: soft and no hepatosplenomegaly Other: Mild tenderness to left lower quadrant only, certainly no rebound tenderness or guarding Extremity: Common normals: normal to inspection and no pedal edema Neuro: Speech: speech normal Motor exam: strength 5/5 throughout and no movement abnormalities noted Psych: Appearance: well kempt Attitude: calm Mood and affect: euthymic mood Skin: Common normals: no rashes or lesions noted General skin exam: no rashes or lesions noted Course Course Hospital Course: Differential diagnosis including gastroenteritis, pancreatitis, colitis, gallbladder disease, gynecological issues, among others. Possible Maliha-Mills tear, gastritis. Recommended basic labs, looking for pancreatitis, electrolyte abnormalities. Will start 1 L of LR, 20 mg of famotidine, 8 mg of IV Zofran. Will give Imodium once the Zofran has kicked in. Suspect gastroenteritis is most likely. Will re-evaluate after interventions. Reevaluation(s) Time of Reevaluation #1: 07:58 Reevaluation #1: Patient reports improvement in her nausea, feeling better. Will give Imodium p.o. x1. Counseled on home management. Recommended PPI or Pepcid once daily for the next week, will give prescription for Zofran as needed. Continue p.r.n. Imodium. Alarm symptoms reviewed as indications to come back to ED. Patient verbalizes understanding and agreement. Labs reassuring. Reviewed with patient. Vital Signs Vital signs: Initial Vital Signs Temperature 97.8 F 01/27/23 06:29 Temperature Source Temporal Artery Scan 01/27/23 06:29 Pulse Rate 90 01/27/23 06:29 Respiratory Rate 18 01/27/23 06:29 Blood Pressure 124/77 01/27/23 06:29 Blood Pressure Mean 92 01/27/23 06:29 Pulse Oximetry 100 01/27/23 06:29 Oxygen Delivery Method Room Air 01/27/23 06:29 Vital Signs Temperature 97.8 F 01/27/23 06:29 Pulse Rate 90 01/27/23 06:29 Respiratory Rate 18 01/27/23 06:29 Blood Pressure 124/77 01/27/23 06:29 Pulse Oximetry 100 01/27/23 06:29 Oxygen Delivery Method Room Air 01/27/23 06:29 Temperature 97.8 F 01/27/23 06:29 Pulse Rate 90 01/27/23 06:29 Respiratory Rate 18 01/27/23 06:29 Blood Pressure 124/77 01/27/23 06:29 Pulse Oximetry 100 01/27/23 06:29 Oxygen Delivery Method Room Air 01/27/23 06:29 Medical Decision Making Lab Data Lab results reviewed: Yes I reviewed the patient's lab results Lab results narrative: Reassuring. Labs: Lab Results 01/27/23 Range/Units 06:50 Sodium 137 (135-149) mmol/L Potassium 3.5 L (3.6-5.1) mmol/L Chloride 103 (96-114) mmol/L Carbon Dioxide 20 (20-32) mmol/L BUN 10 (5-24) mg/dL Creatinine 0.6 (0.5-1.5) mg/dL Estimated Creat Clear 127.00 Estimated GFR 130 ml/min Glucose 85 (60-115) mg/dL Calcium 9.2 (8.4-10.6) mg/dL Total Bilirubin 0.7 (0.1-1.5) mg/dL AST 22 (12-35) U/L ALT 18 (4-35) U/L Alkaline Phosphatase 91 (40-150) U/L C-Reactive Protein 2.4 H (0.5-1.0) mg/dL Total Protein 7.3 (6.0-8.3) g/dL Albumin 4.4 (3.3-5.0) g/dL Lipase 39 (23-300) U/L Discharge Plan Discharge Clinical Impression: Gastroenteritis Patient Disposition: Home, Self-Care Condition: Improved Instructions: Gastroenteritis (DC) Additional Instructions: As we discussed, labs look great. No signs of any severe illness. I recommend that you take [id number] famotidine or omeprazole, these are sold as Pepcid and Prilosec respectively. Take these once daily for the next week. This will help with stomach irritation. You may continue using the Zofran, also known as ondansetron. This is the anti nausea medicine that I gave you in the emergency department. He will pick this up from the vending machine in the lobby. You may take 1 tablet every 6 hours as needed. Drink plenty of fluids. You were given a single dose of Imodium for diarrhea. You may continue using this up to 6 times daily as needed for diarrhea. Come back to the emergency department if you have severe pain, loss of blood in her stools, fevers over 100.4 or are severely weak. If not improving by Tuesday, make a follow-up appointment in the clinic. May return to work tomorrow if improved. Activity Level: Activity as Tolerated Discharge Diet: Regular Prescriptions: No Action norgestimate-ethinyl estradiol [Sprintec (28)] 0.25-35 mg-mcg tablet 1 tab PO QDAY Qty: 84 4RF triamcinolone acetonide 0.1 % cream 1 applic topical BID PRN (Reason: eczema) Qty: 30 1RF Follow Up/Referrals: Tim Shane MD [Primary Care Provider] - Stand Alone Forms: [employer] Info Instructions
[2023-01-27] MEDS: LACTATED RINGERS 1000 ML 1,000 ML IV (06:58)
[2023-01-27] MEDS: FAMOTIDINE 10 MG/ML inj 20 MG IVP (06:59)
[2023-01-27] MEDS: ONDANSETRON 2 MG/ML inj 8 MG IVP (06:59)
[2023-01-27 07:13] LABS: Albumin* 4.4 g/dL (3.3-5.0); Chloride* 103 mmol/L (96-114)
[2023-01-27 07:14] LABS: Potassium* 3.5 mmol/L (3.6-5.1); Sodium* 137 mmol/L (135-149)
[2023-01-27 07:16] LABS: Alkaline Phosphatase* 91 U/L (40-150); Aspartate Amino Transferase* 22 U/L (12-35); Bilirubin Total* 0.7 mg/dL (0.1-1.5); Carbon Dioxide* 20 mmol/L (20-32); Creatinine* 0.6 mg/dL (0.5-1.5); Estimated Glomerular Filt Rate 130 ml/min; Total Protein* 7.3 g/dL (6.0-8.3)
[2023-01-27 07:17] LABS: Alanine Aminotransferase* 18 U/L (4-35); Blood Urea Nitrogen* 10 mg/dL (5-24); Calcium* 9.2 mg/dL (8.4-10.6); Lipase* 39 U/L (23-300)
[2023-01-27 07:19] LABS: C Reactive Protein* 2.4 mg/dL (0.5-1.0)
[2023-01-27 07:39] LABS: Glucose* 85 mg/dL (60-115)
[2023-01-27] MEDS: LOPERAMIDE HCL 2 MG CAPSULE 4 MG PO (07:57)
[2023-01-27 08:12] VITALS: BP 120/70; PULSE 82; RESP 18; O2SAT 98
[2023-01-27 15:39] LABS: Basophils Absolute Auto 0.03 K/uL (0.00-0.30); Basophils Percent Auto 0.3 % (0.0-3.0); Eosinophils Absolute Auto 0.12 K/uL (0.00-0.50); Eosinophils Percent Auto 1.3 % (0.0-7.0); Hemoglobin* 12.7 gm/dL (12.0-16.0); Immature Granulocytes Abs Auto 0.08 K/uL (0.00-0.30); Immature Granulocytes Pct Auto 0.9 %; Lymphocytes Percent Auto 15.9 % (20-44); Mean Corpuscular HGB Conc 33 gm/dL (32-36); Mean Corpuscular Hemoglobin 29 pg (26-34); Mean Corpuscular Volume 88 fL (80-100); Monocytes Percent Auto 6.1 % (0.0-11.0); Neutrophils Percent Auto 75.5 % (42.0-72.0); Platelet Count* 265 K/uL (140-440); RDW Coefficient of Variation % 12.7 % (11.5-15.5); Red Blood Count 4.41 m/uL (4.00-5.20); White Blood Count* 9.01 K/uL (4.50-11.00)
[2023-01-27 15:49] LABS: Slide Review Reflex No
== END 2023-01-27 08:12 | disposition home or self-care (01) ==
PROVIDERS: Emergency Provider Family Medicine; PCP Family Medicine
DX: K52.9 Noninfective gastroenteritis and colitis, unspecified (principal)
CPT/HCPCS: 36415; 80053; 83690; 85025; 86140; 96374; 99284; A9270; J2405; J7120; S0028

== ENCOUNTER 2023-03-06 20:30 | Emergency (ER) | payer OTHER, MEDICAID, SELFPAY ==
--- NOTE | 2023-03-06 20:42 | CRLHL7_ITS ---
For Patients: As a result of the Cures Act, medical imaging exams and procedure reports are released immediately into your electronic medical record. You may view this report before your referring provider. If you have questions, please contact your health care provider. Indication: Power tool injury Technique: Three views of the left 2nd finger Comparison: None Findings and Impression: Acute, comminuted, predominantly transverse, extra-articular fracture of the 2nd distal phalanx with overlying soft tissue swelling and soft tissue defect. No dislocation. Joint spaces are maintained. No radiopaque foreign body. Dictated by Nohemi Woodward MD @ 03/06/2023 9:58:24 PM (Electronically Signed)
[2023-03-06 20:44] VITALS: BP 139/84; PULSE 95; RESP 18; TEMP 36.7; O2SAT 99; BMI 28.2
--- NOTE | 2023-03-06 20:59 | ED.NURSE ---
pt arrives with finger in gauze and pressure wrap, wrap removed, finger laceration exposed, pulsating blood flow out of finger, medium finger tourniquet applied at 2031, bleeding stopped, MD miguel at bedside, MD placed injection block, 2039 tourniquet removed, bleeding to minimal drip. pt states pain relief post block. 1L NS irrigation to wound, pt tolerated without pain, felt pressure.
--- NOTE | 2023-03-06 21:47 | ED.UPPEXIN ---
HPI - Extremity Injury (Upper) General Chief Complaint: Extremity Pain/Injury, Upper Stated Complaint: Finger cut in farm equipment Time Seen by Provider: 03/06/23 20:33 History of Present Illness HPI narrative: This 22-year-old female comes in with the injury to her left index finger that occurred just prior to arrival. 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 They were working with this and she got her finger caught in that process. She has a laceration over the distal portion of the finger with a deviation of the finger tip suggesting fracture or dislocation. She does not report any other injury. Related Data Previous Rx's Medication Instructions Recorded norgestimate 0.25 mg-ethinyl 1 tab PO QDAY #84 tabs 08/27/22 estradiol 35 mcg tablet (Sprintec (28)) Allergies Allergy/AdvReac Type Severity Reaction Status Date / Time No Known Allergies Allergy Verified 03/06/23 20:46 Review of Systems Status of ROS: Reports: 10 or more systems reviewed and unremarkable except as noted in History and below Narrative: Constitutional: No fevers, no weight gain or loss. Eyes: No discharge. No vision changes. HENT: No congestion, no sore throat, no ear pain. Cardiovascular: No chest pain, no palpitations. Respiratory: No shortness of breath, no wheezes, no cough. Gastrointestinal: No abdominal pain, no vomiting, no diarrhea. Genitourinary: No dysuria, no hematuria. Musculoskeletal: Left index finger injury as described above. Skin: No rashes, no pruritis. Neurological: No dizziness, weakness, sensory change, speech change. Endo/Heme/Allergies: No bruising or bleeding. No polydipsia. Pysch: no suicidality, no anxiety, no insomnia. All other systems reviewed and are negative. [facility] Medical History Rash ?R21 - Rash and other nonspecific skin eruption (ICD-10) Diarrhea ?R19.7 - Diarrhea, unspecified (ICD-10) URI (upper respiratory infection) ?J06.9 - Acute upper respiratory infection, unspecified (ICD-10) History of heavy vaginal bleeding ?Z87.42 - Personal history of other diseases of the female genital tract (ICD-10) Previous recurrent miscarriages affecting , antepartum ?O26.20 - care for patient with recurrent loss, unspecified trimester (ICD-10) Surgical History Status post laparoscopic appendectomy ?Z90.49 - Acquired absence of other specified parts of digestive tract (ICD-10) History of umbilical hernia repair (2004) ?Z98.890 - Other specified postprocedural states (ICD-10) ?Z87.19 - Personal history of other diseases of the digestive system (ICD-10) History of tympanostomy (2003) ?Z98.890 - Other specified postprocedural states (ICD-10) History of tonsillectomy (2004) ?Z90.89 - Acquired absence of other organs (ICD-10) Family History Paternal Grandfather Family history of CABG, Onset Age: 50 Maternal Grandmother Diabetes Pancreatic cancer Social History Narrative: does not drink alcohol does not exercise non-smoker Smoking Status: Never smoker Do you use any of these nicotine containing products: None How often do you have a drink containing alcohol: monthly or less How often do you have six or more drinks on one occasion: Never AUDIT-C Alcohol total score: 1 Non-prescribed substance use: denies use service: No Exam Narrative: Exam Narrative: Constitutional: Well-developed, well-nourished, no acute distress. HEENT: Normocephalic, atraumatic. Neck: Normal range of motion. Nontender. Supple. Heart: Intact distal pulses. Lungs: No chest discomfort. No wheezes, rhonchi, or rales. Abdomen: Nontender. Back: Normal range of motion. Extremities: Left index finger laceration with deviation of the tip of the finger toward the middle finger. The length of the laceration is approximately 5 cm. Skin: Intact. No rash. Warm. No erythema or pallor. Neurologic: No altered sensation. No weakness. Alert and oriented. Psychiatric: No suicidality. No anxiety or depression. No insomnia. Nursing notes and vitals signs are reviewed. Const: Vital Signs, click to edit/add: Vital Signs - 24 hr 03/06/23 20:44 Temperature 98.0 F Pulse Rate [Right Pulse Oximeter] 95 Respiratory Rate 18 Blood Pressure [Ri ght Upper Arm] 139/84 Pulse Oximetry 99 Oxygen Delivery Me thod Room Air Course Vital Signs Vital signs: Initial Vital Signs Temperature 98.0 F 03/06/23 20:44 Temperature Source Temporal Artery Scan 03/06/23 20:44 Pulse Rate 95 03/06/23 20:44 Respiratory Rate 18 03/06/23 20:44 Blood Pressure 139/84 03/06/23 20:44 Blood Pressure Mean 102 03/06/23 20:44 Blood Pressure Position Sitting 03/06/23 20:44 Pulse Oximetry 99 03/06/23 20:44 Oxygen Delivery Method Room Air 03/06/23 20:44 Vital Signs Temperature 98.0 F 03/06/23 20:44 Pulse Rate 95 03/06/23 20:44 Respiratory Rate 18 03/06/23 20:44 Blood Pressure 139/84 03/06/23 20:44 Pulse Oximetry 99 03/06/23 20:44 Oxygen Delivery Method Room Air 03/06/23 20:44 Temperature 98.0 F 03/06/23 20:44 Pulse Rate 95 03/06/23 20:44 Respiratory Rate 18 03/06/23 20:44 Blood Pressure 139/84 03/06/23 20:44 Pulse Oximetry 99 03/06/23 20:44 Oxygen Delivery Method Room Air 03/06/23 20:44 MDM - Extremity Injury (Upper) MDM Narrative Medical decision making narrative: This patient comes in with an injury to her left index finger. She has some ongoing oozing of blood. A ring exsanguinated her was placed by the nurse temporarily to stop bleeding. She is not bleeding of excessively. I did have this removed and examined the wound. She also received a digital block using Marcaine 0.25%. She also had some of this same medicine injected into the wound site. This brought complete relief to her pain. X-ray imaging of the finger shows a fracture of the distal portion of her finger. The wound was cleansed with normal saline. I repaired the laceration using 4.0 Ethilon suture. This brought proper alignment of her finger. A total of 7 sutures were placed in interrupted fashion. The patient was then placed in a splint and instructions were given regarding wound care and the need for suture removal in 7-10 days. This is an open fracture of the distal portion of her finger so she did receive a prescription for Keflex and Tramadol from the [employer] machine. Discharge Plan Discharge Clinical Impression: Finger laceration, Finger fracture, left Patient Disposition: Home, Self-Care Condition: Improved Additional Instructions: Take medication as needed and indicated. Keflex 500 mg, 21 tablets, is to be taken 3 times a day. Tramadol, 15 tablets, can also be taken as needed and directed for pain relief. Follow up with MD or urgent care in 7-10 days for suture removal. Return if worsening. Prescriptions: No Action norgestimate-ethinyl estradiol [Sprintec (28)] 0.25-35 mg-mcg tablet 1 tab PO QDAY Qty: 84 4RF Follow Up/Referrals: Tim Shane MD [Primary Care Provider] - Stand Alone Forms: [employer] Info Instructions
[2023-03-06 22:19] VITALS: BP 122/71; PULSE 71; RESP 16; TEMP 36.9
--- NOTE | 2023-03-06 22:19 | ED.NURSE ---
bandage over stitches, finger splint and coban wrapped per md request.
== END 2023-03-06 22:20 | disposition home or self-care (01) ==
PROVIDERS: Emergency Provider Emergency Medicine Emergency Medical Services; PCP Family Medicine
DX: S62.631B Displaced fracture of distal phalanx of left index finger, initial encounter for open fracture (principal); W30.9XXA Contact with unspecified agricultural machinery, initial encounter; Y92.79 Other farm location as the place of occurrence of the external cause
CPT/HCPCS: 12002; 29130; 73140; 99283; 99284

== ENCOUNTER 2023-03-26 23:59 | Emergency (ER) | payer OTHER, MEDICAID, SELFPAY ==
[2023-03-27 00:06] VITALS: BP 124/83; PULSE 90; RESP 18; TEMP 36.2; O2SAT 98
--- NOTE | 2023-03-27 00:12 | ED_ITS ---
HPI - General Adult General Chief complaint: Skin/Abscess/Foreign Body Stated complaint: L pointer finger red and infected Time Seen by Provider: 03/27/23 00:05 History of Present Illness HPI narrative: left hand pointer finger is not getting any better. Pain rated 7/10 . Started new antibiotic 2 days ago, SMZ/ TMP DS 180-160 tab, if did not get any, should be seen by MD. PT reports feeling lightheaded today, finger looks infected. 22-year-old young woman presenting to the emergency department for re-evaluation concern of infection of the left index finger. Had a distal phalangeal fracture and associated laceration seen here nearly 3 weeks ago. Treated with Keflex. With concern of potential infection was initiated on Bactrim 2 days ago. Now not draining any purulence and feels that it overall looks better. No fever. Has been splinted. Related Data Previous Rx's Medication Instructions Recorded norgestimate 0.25 mg-ethinyl 1 tab PO QDAY #84 tabs 08/27/22 estradiol 35 mcg tablet (Sprintec (28)) Allergies Allergy/AdvReac Type Severity Reaction Status Date / Time No Known Allergies Allergy Verified 03/15/23 11:08 Review of Systems Status of ROS: Reports: 6 or more systems reviewed and unremarkable except as noted in History and below [facility] Medical History Rash ?R21 - Rash and other nonspecific skin eruption (ICD-10) Diarrhea ?R19.7 - Diarrhea, unspecified (ICD-10) URI (upper respiratory infection) ?J06.9 - Acute upper respiratory infection, unspecified (ICD-10) History of heavy vaginal bleeding ?Z87.42 - Personal history of other diseases of the female genital tract (ICD-10) Previous recurrent miscarriages affecting , antepartum ?O26.20 - care for patient with recurrent loss, unspec ified trimester (ICD-10) Surgical History Status post laparoscopic appendectomy ?Z90.49 - Acquired absence of other specified parts of digestive tract (ICD- 10) History of umbilical hernia repair (2004) ?Z98.890 - Other specified postprocedural states (ICD-10) ?Z87.19 - Personal history of other diseases of the digestive system (ICD-10) History of tympanostomy (2003) ?Z98.890 - Other specified postprocedural states (ICD-10) History of tonsillectomy (2004) ?Z90.89 - Acquired absence of other organs (ICD-10) Family History Paternal Grandfather Family history of CABG, Onset Age: 50 Maternal Grandmother Diabetes Pancreatic cancer Social History Narrative: does not drink alcohol does not exercise non-smoker Smoking Status: Never smoker Do you use any of these nicotine containing products: None How often do you have a drink containing alcohol: monthly or less How often do you have six or more drinks on one occasion: Never AUDIT-C Alcohol total score: 1 Non-prescribed substance use: denies use service: No Exam Narrative: Exam Narrative: NAD. Clearly favoring this left index finger. Removing entire finger clamshell style splint. Generally finger is deformed from this. Does not appear to be any notable calor or erythema. Crusting wound edge with what looks to have been an area of recent purulence. Not particularly more tender to palpation. Const: Vital Signs, click to edit/add: Vital Signs - 24 hr 03/27/23 00:06 Temperature 97.1 F L Pulse Rate [Left P ulse Oximeter] 90 Respiratory Rate 18 Blood Pressure [Ri ght Upper Arm] 124/83 Pulse Oximetry 98 Oxygen Delivery Me thod Room Air Documenting provider has reviewed patient's vital signs: yes Course Vital Signs Vital signs: Initial Vital Signs Temperature 97.1 F L 03/27/23 00:06 Temperature Source Temporal Artery Scan 03/27/23 00:06 Pulse Rate 90 03/27/23 00:06 Pulse Rhythm Regular 03/27/23 00:06 Respiratory Rate 18 03/27/23 00:06 Blood Pressure 124/83 03/27/23 00:06 Blood Pressure Mean 96 03/27/23 00:06 Blood Pressure Position Sitting 03/27/23 00:06 Pulse Oximetry 98 03/27/23 00:06 Oxygen Delivery Method Room Air 03/27/23 00:06 Vital Signs Temperature 97.1 F L 03/27/23 00:06 Pulse Rate 90 03/27/23 00:06 Respiratory Rate 18 03/27/23 00:06 Blood Pressure 124/83 03/27/23 00:06 Pulse Oximetry 98 03/27/23 00:06 Oxygen Delivery Method Room Air 03/27/23 00:06 Temperature 97.1 F L 03/27/23 00:06 Pulse Rate 88 03/27/23 01:53 Respiratory Rate 18 03/27/23 01:53 Blood Pressure 122/62 03/27/23 01:53 Pulse Oximetry 98 03/27/23 01:53 Oxygen Delivery Method Room Air 03/27/23 01:53 Medical Decision Making MDM Narrative Medical decision making narrative: At this point might be a good idea to assess bony healing. I do not see evidence of a cellulitis or other extensive infect at the moment. X-rays done and by my read fracture line is still clearly visible in the distal phalanx. I would like to transition to a different splint. I think a finger stack splint will offer better and more comfortable protection in this case. Was was applied. Tolerating well. Has already initiated another course of antibiotics. I was not able to view this finger couple of days ago. I would just continue the course. See patient discharge plan Discharge Plan Discharge Clinical Impression: Finger fracture, Wound infection Patient Disposition: Home, Self-Care Condition: Stable Additional Instructions: I would switch over to this finger Stax splint for the remaining 3 weeks to encompass a total of 6 weeks of splinting. Be seen for re-evaluation at that point. Over the next week might be good to keep covered with a Band-Aid as well. Over the next 3 days I would soak your finger 1-2 times daily in warm Epsom salt water. Reasons for re-evaluation are marked increase in pain, swelling, redness and heat. Keep taking your Bactrim at this point to finish the course. Prescriptions: No Action norgestimate-ethinyl estradiol [Sprintec (28)] 0.25-35 mg-mcg tablet 1 tab PO QDAY Qty: 84 4RF Follow Up/Referrals: Tim Shane MD [Primary Care Provider] - Stand Alone Forms: [facility] Info Instructions
--- NOTE | 2023-03-27 00:35 | CRLHL7_ITS ---
For Patients: As a result of the Century Cures Act, medical imaging exams and procedure reports are released immediately into your electronic medical record. You may view this report before your referring provider. If you have questions, please contact your health care provider. Indication: Fracture of the distal phalanx the left 2nd finger Technique: Three views left 2nd finger Comparison: March 06, 2023 Findings: Bones: There is a mildly displaced fracture through the proximal to mid portion of the left 2nd distal phalanx. The fracture line is still clearly seen. Joint spaces: Unremarkable. Soft tissues: Unremarkable. Impression: Mildly displaced fracture through the proximal to mid portion of the left 2nd distal phalanx. The fracture line is still clearly seen. Dictated by Ashley Coburn MD @ 03/27/2023 1:39:17 AM (Electronically Signed)
[2023-03-27 01:53] VITALS: BP 122/62; PULSE 88; RESP 18; O2SAT 98
== END 2023-03-27 01:57 | disposition home or self-care (01) ==
PROVIDERS: Emergency Provider Family Medicine; PCP Family Medicine
DX: S68.111A Complete traumatic metacarpophalangeal amputation of left index finger, initial encounter (principal); L08.89 Other specified local infections of the skin and subcutaneous tissue
CPT/HCPCS: 73140; 99282; 99283; 99284

== ENCOUNTER 2023-10-11 11:48 | Outpatient (CLI) | payer OTHER, SELFPAY ==
[2023-10-11 22:35] LABS: Chlamydia DNA Amplified* NOT DETECTED (No Detected); GC DNA Amplified* NOT DETECTED (No Detected)
== END 2023-10-11 11:49 | disposition home or self-care (01) ==
LOC: NFLDREF 11:49
PROVIDERS: PCP Family Medicine; Visit Provider Physician Assistant
DX: N89.8 Other specified noninflammatory disorders of vagina (principal); R30.0 Dysuria
CPT/HCPCS: 87086; 87491; 87591

== ENCOUNTER 2024-04-11 10:57 | Outpatient (CLI) | payer OTHER, SELFPAY ==
--- OUTSIDE RECORDS SUMMARY | 2024-04-11 10:59 | XMS_ITS | Clinical Summary ---
Author Organization [employer] [facility] Address [place], [place] [address] Care Team Providers Care Steamer Gum Candy Name Role Phone Tamara Wei MD Primary Care Provider + Allergies No known active allergies Medications Medication Sig Dispensed Refills Start Date End Date Status pyridoxine (Vitamin B-6) 50 mg tabletIndications:Denny sea/vomiting in Take 1 Tablet (50 mg) by mouth once daily. 90 Tablet 1 07/17/2021 Active doxylamine (UNISOM) 25 mg tabletIndications:Denny sea/vomiting in Take 1-2 Tablets (25-50 mg) by mouth at bedtime if needed for Sleep. 60 Tablet 07/17/2021 Active Active Problems No known active problems Immunizations Name Administration Dates Next Due COVID-19 vaccine (Moderna 100mcg/0.5mL) VICTOR MANUEL CRUZ 2020,08/11/2020 DTaP 03/04/2006, 2,03/13/2001,01/11,2000 HIB PRP-T (ActHIB,Hiberix) 12/15/2001,01/11/2001 ,2000 HIB-HepB (Comvax) 12/15/2001,01/11/2001,11/08/19 HPV 9 (Gardasil 9) 11/16/2017 Hepatitis A (Peds) 03/15/2013,01/28/2012 Hepatitis A, Unspecified 01/28/2012 Hepatitis B, Unspecified 12/15/2001,01/11/2001,0 2000 Hib Conjugate, Unspecified 12/15/2001,01/11/2001 ,2000 Human Papilloma Virus Vaccine 04/22/2014, 013,01/28/2012 Inactivated Polio Vaccine 03/04/2006,08/2000,03/13/2001,01/11,2000 Influenza, IIV3 (Age 6-35 mos) 05/23/2018 Influenza, IIV4 09/15/2020,05/17/2019 Influenza, IIV4 (=>6mos) MDV 09/15/2017 MMR 03/04/2006,2001 Meningococcal Vaccine (Menactra) 01/28/2012 Pneumococcal Poly,23-Valent (Pneumovax) 12/15/2001,01/11/2001,2000 Pneumococcal conj 7-Valent (Prevnar 7) 2,01/11/2001,2000 Polio Virus, Unspecified 03/04/2006 Tdap 01/28/2012 Varicella Vaccine 03/23/2007,09/11/2003 Social History Tobacco Use Types Packs/Day Years Used Date Smoking Tobacco: Never Smokeless Tobacco: Never Tobacco Cessation:Counseling Given: Yes Alcohol Use Standard Drinks/Week Comments Never 0 (1 standard drink = 0.6 oz pur e alcohol) PHQ-2 Answer Date Recorded PHQ-2 TOTAL SCORE 0 07/17/2021 Social Connections Answer Date Recorded Frequency of Communication with Friends and Fami ly 0 11/22/2022 Financial Resource Strain Answer Date R ecorded Difficulty of Paying Living Expenses 3 11/22/2022 Difficulty of Paying Living Expenses Not on file 11/22/2022 Food Insecurity Answer Date Recorded Worried About Running Out of Food in the Last Ye ar 1 11/22/2022 Transportation Needs Answer Date Record ed Lack of Transportation (Medical) 1 11/22/2022 Housing Stability Answer Date Recorded Unable to Pay for Housing in the Last Year 1 11/22/2022 Sex and Gender Information Value Date Recorded Sex Assigned at Not on file Gender Identity Not on file Sexual Orientation Not on file Obstetrics History Para Term AB IAB SAB Ectopic Multiple Livin g Live Births 1 Date Outcome GA Total Labor Labor/2nd/3rd Weight Sex Type Anes PTL Sury A1 A5 Name Clin Last Filed Vital Signs Vital Sign Reading Time Taken Comments Blood Pressure 122/58 11/22/2022 1:28 PM CDT Pulse 88 11/22/2022 1:28 PM CDT Temperature 36.4 ??C (97.5 ??F) 11/22/2022 1:28 PM CD T Respiratory Rate 12 11/22/2022 1:28 PM CDT Oxygen Saturation 98% 11/22/2022 1:28 PM CDT Inhaled Oxygen Concentration - - Weight 74.8 kg (165 lb) 11/22/2022 1:28 PM CDT Height 166 cm (5' 5.35) 07/17/2021 9:18 AM MATH AND SCIENCE INSTRUCTOR Body Mass Index - - Plan of Treatment Health Maintenance Due Date Last Done Comments HIV for age 15-65 2015 Hepatitis C screening for age 18-79 2018 Chlamydia for age 16-24 03/19/2021 03/19/2020 Tetanus booster 01/27/2022 01/28/2012 BMI (ht and wt on same day) for age 18+ 07/17/2022 07/17/2021, 02/03/2021 Depression screening for age 12+ 07/17/2022 07/17/2021 COVID-19 vaccine series ( season) 2023 10/16/2021, 2020, 08/11/2020 Influenza for age 9-49 04/08/2024 , 05/17/2019, 09/15/2017 Pap test for age 21-65 07/19/2025 07/19/2022 Pneumococcal series for age 6-64 Aged Out 12/15/2001, 12/15/2001, 01/11/2001, Additional history exists No longer eligible based on patient's age to complete this topic Tdap Completed 01/28/2012 HPV series for age 9-26 Completed 11/17/19 18, 04/22/2014, 03/15/2013, Additional history exists Procedures Procedure Name Priority Date/Time Associated Diagnosis Comments TRANSFORMATION ANALYST THIN PREP PAP SCREEN IMAGED Routine 07/19/2022 1:10 PM MATH AND SCIENCE INSTRUCTOR GC CHLAMYDIA TRACH PROBE Routine 03/19/2020 2:35 PM CDT from Last 3 Months or Most Recently Relevant to Health Maintenance Results * TRANSFORMATION ANALYST THIN PREP PAP SCREEN IMAGED (07/19/2022 1:10 PM MATH AND SCIENCE INSTRUCTOR) Case Report Gynecologic Cytology Report ? Case: [id number] ? Authorizing Provider: ??Abile, Marlena Yancey MD ?Collected: ? 07/19/2022 1310 ? Ordering Location: ? [facility] ?Received: ?07/21/2022 0955 ? First Screen: ?Vika Nath ? Specimen: ?TRANSFORMATION ANALYST ThinPrep Vial Screening, Cervical/Vaginal ? 08/06/2022 4:20 PM MATH AND SCIENCE INSTRUCTOR [facility] INTERPRETATION/ RESULT NEGATIVE FOR INTRAEPITHELIAL LESION OR MALIGNANCY (NIL) (none) 08/06/2022 4:20 PM MATH AND SCIENCE INSTRUCTOR [facility] IMEN ADEQUACY Satisfactory for evaluation Endocervical component present 08/06/2022 4:20 PM MATH AND SCIENCE INSTRUCTOR [facility] HPV REQUEST HPV if ASCUS 08/06/2022 4:20 PM MATH AND SCIENCE INSTRUCTOR [facility] Date of LMP 07/07/2022 08/06/2022 4:20 PM MATH AND SCIENCE INSTRUCTOR [facility] Last Pap Date 12/10/2021 08/06/2022 4:20 PM MATH AND SCIENCE INSTRUCTOR [facility] Last Pap Result First Pap/Unknown 4:20 PM MATH AND SCIENCE INSTRUCTOR [facility] Abnormal Pap or [place] Bx in last 5 years No 08/06/2022 4:20 PM MATH AND SCIENCE INSTRUCTOR [facility] [place] Bx Done Today No 08/06/2022 4:20 PM MATH AND SCIENCE INSTRUCTOR [facility] Additional Information 08/06/2022 4:20 PM MATH AND SCIENCE INSTRUCTOR [facility] Comment: Interpreted at [facility] - [address], [place] [address] Automated Review Successful 08/06/2022 4:20 PM MATH AND SCIENCE INSTRUCTOR [facility] Comment:Specimen processed s uccessfully by automated strategic business development device, ThinPrep Imaging System, [employer] Note The pap test is a screening technique, not a diagnostic procedure. It is used primarily to screen for squamous cancers and precursor lesions. Published studies have shown that it is subject to both false negative and false positive results. The pap test should not be used as the sole means to diagnose or exclude pre-malignant and malignant lesions. 08/06/2022 4:20 PM MATH AND SCIENCE INSTRUCTOR [facility] Other (Cervical/Vagina l) 07/19/2022 1:10 PM MATH AND SCIENCE INSTRUCTOR 07/21/2022 9:55 AM MATH AND SCIENCE INSTRUCTOR Marlena Naye Beebe MD PATHOLOGY/CYTOLOGY [facility] [address] [place] [address], * GC CHLAMYDIA TRACH PROBE (03/19/2020 2:35 PM CDT) CHLAMYDIA PROBE Negative 0 2:50 PM CDT [facility] N GONORRHOEAE PROBE Negative 03/21/2020 2:50 PM CDT [facility] Other VAGINAL SWAB / Unknown Client Collect / Unknown 03/19/2020 2:35 PM CDT 03/20/2020 4:57 PM CDT Amy Grande MD MICROBIOLOGY [facility] [address] [place] [address], [place] from Last 3 Months or Most Recently Relevant to Health Maintenance Care Teams Steamer Gum Candy Relationship Specialty Start Date End Date Tamara Wei MD [address] [place] [address] PCP - General Family Practice 04/12/17
--- OUTSIDE RECORDS SUMMARY | 2024-04-11 10:59 | XMS_ITS | Clinical Summary ---
Author Organization [facility] Address [address], [place] [address] Care Team Providers Care Fur Finisher Seamstress Name Role Phone Unavailable Primary Care Provider Unavailabl e Source Comments You are receiving this document as you are listed as the primary care provider,follow-up provider, or the patient has been referred to you for consultation.This is in compliance with the Medicare and[facility] EHR Incentive Program,which states Providers who transition their patient to another setting of careor provider of care or refers their patient to another provider of care shouldprovide summary care record for each transition of care or referral. [facility] Allergies No known active allergies Medications No known medications Active Problems No known active problems Social History Tobacco Use Types Packs/Day Years Used Date Smoking Tobacco: Never Passive Smoke Exposure: Never Tobacco Cessation:Counseling Given: Not Answered Sex and Gender Information Value Date Recorded Sex Assigned at Not on file Gender Identity Not on file Sexual Orientation Not on file Last Filed Vital Signs Vital Sign Reading Time Taken Comments Blood Pressure 137/77 06/10/2023 5:41 PM CDT Pulse 89 06/10/2023 5:41 PM CDT Temperature 37.1 ??C (98.8 ??F) 06/10/2023 5:41 PM CD T Respiratory Rate 14 06/10/2023 5:41 PM CDT Oxygen Saturation 100% 06/10/2023 5:41 PM CDT Inhaled Oxygen Concentration - - Weight - - Height - - Body Mass Index - - Plan of Treatment Health Maintenance Due Date Last Done Comments Cervical Cancer Screening Due 2000 Chlamydia 2000 Hep C Screening (Preventive Services) 2000 HIV Screening (Preventive Services) 2016 Adult Preventive Visit 2018 HepB (1) 2019 COVID-19 Vaccine ( season) 2024 10/16/2021, 2020, 08/11/2020 Influenza (#1) 2024 09/15/2020, 05/08, 05/23/2018, Additional history exists DTaP/Tdap/Td (8 - Tdap) 12/11/2031 12/11/19, 01/28/2012, 03/04/2006, Additional history exists Zoster/Shingles (1 of 2) 2050 Hib Completed 12/15/2001, 12/06, 12/15/2001, Additional history exists Pneumococcal Aged Out 12/15/2001, 12/06, 01/11/2001, Additional history exists No longer eligible based on patient's age to complete this topic IPV (Polio) Completed 03/04/2006, 02/06, 06/08/2001, Additional history exists MCV4 Aged Out 01/28/2012 No longer eligi ble based on patient's age to complete this topic HepA Completed 03/15/2013, 01/07, 01/28/2012, Additional history exists HPV Vaccine Completed 11/16/2017, 04/08, 03/15/2013, Additional history exists
== END 2024-04-11 10:58 | disposition home or self-care (01) ==
PROVIDERS: PCP Family Medicine; Visit Provider Obstetrics & Gynecology
DX: R82.90 Unspecified abnormal findings in urine (principal)
CPT/HCPCS: 87086

== ENCOUNTER 2024-05-02 13:45 | Emergency (ER) | payer OTHER, SELFPAY ==
[2024-05-02 14:03] VITALS: BP 119/76; PULSE 92; RESP 18; TEMP 36.9; O2SAT 97; BMI 30.9
[2024-05-02 14:26] LABS: Appearance Urine Slightly Cloudy (Clear); Bilirubin Urine Negative (Negative); Blood Urine 1+ (Negative); Color Urine Yellow (Yellow); Glucose Urine Negative (Negative); Ketones Urine Negative (Negative); Leukocyte Esterase Urine 1+ (Negative); Nitrite Urine Positive (Negative); Protein Urine Negative (Negative); Specific Gravity Urine 1.015 (1.000-1.030); Urobilinogen Urine 0.2 (0.2-1.0); pH Urine 6.5 (5.0-8.5)
[2024-05-02 14:37] LABS: Bacteria Urine Many; Squamous Epithelial Cell Urine Few (None-Few); WBC Clumps Urine Few; WBC Urine 25-50 (0-5)
[2024-05-02 14:58] LABS: Ur HCG Qualitative* Negative (Negative)
--- NOTE | 2024-05-02 15:12 | ED.GENADULT ---
HPI - General Adult General Date Seen: 05/02/24 Chief complaint: Back Injury/Pain Stated complaint: middle back pain after UTI Time Seen by Provider: 05/02/24 14:36 History of Present Illness HPI narrative: Pleasant 23-year-old female with a past medical history of frequent UTIs, previous loss, and recent bladder infection presenting to the ER today for evaluation of flank pain and dysuria. She notes that she had UTI symptoms about 2 weeks or so ago. [facility] [place]. She had a mildly abnormal urinalysis but was put on antibiotics anyway. (UA 04/11 showed 1+ blood, negative nitrite, 2-5 red cells, 0-2 white cells. Few bacteria. Urine culture from 04/11 had no growth. She was put on an antibiotic (does not noted the name, not listed in her medical record) that she took twice daily for 5 days and seems like her urinary symptoms got better. She was doing fairly good for about a week or so. Beginning on Tuesday she started having bad bilateral flank pain. That got better by Tuesday morning. She has been relatively good for a few days with some mild dysuria. Beginning this morning she is now having more significant dysuria, suprapubic pain, cloudy looking, fall smelling, urine. She is also having flank pain in both of her flanks today. No fever chills. Mild nausea but no vomiting. Bowel movements have been normal. Menstrual cycle normal. Does not think she is . No known back injuries. No radiation of the pain down her legs. Related Data Previous Rx's ?Medication ?Instructions ?Recorded cefdinir 300 mg capsule 300 mg PO BID 10 days #20 caps 05/02/24 fluconazole 150 mg tablet 150 mg PO Q3D PRN #2 tabs 05/02/24 hydrocodone 5 mg-acetaminophen 325 1 tab PO Q4-6H PRN pain #10 tabs 05/02/24 mg tablet Allergies Allergy/AdvReac Type Severity Reaction Status Date / Time No Known Allergies Allergy Verified 05/02/24 14:02 [facility] Medical History (Updated 05/02/24 @ 15:16 by Rolf Yi MD) History of heavy vaginal bleeding ?Z87.42 - Personal history of other diseases of the female genital tract (ICD-10) Surgical History (Updated 10/11/23 @ 12:36 by Karen Fu PA-C) History of endoscopy (12/08/18) ?Z98.890 - Other specified postprocedural states (ICD-10) Status post laparoscopic appendectomy ?Z90.49 - Acquired absence of other specified parts of digestive tract (ICD-10) History of umbilical hernia repair (2004) ?Z98.890 - Other specified postprocedural states (ICD-10) ?Z87.19 - Personal history of other diseases of the digestive system (ICD-10) History of tympanostomy (2003) ?Z98.890 - Other specified postprocedural states (ICD-10) History of tonsillectomy (2004) ?Z90.89 - Acquired absence of other organs (ICD-10) Family History Paternal Grandfather Family history of CABG, Onset Age: 50 Maternal Grandmother Diabetes Pancreatic cancer Social History (Updated 10/11/23 @ 12:37 by Karen Fu PA-C) 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 Alert. Conversant. Non toxic. Sitting up with her knees up against her torso on the bed because it is more comfortable for her flanks in that position. HENT: Head: Atraumatic. Nose: Nose normal. Mouth/Throat: Oral mucosa is clear and moist. no trismus. Pharynx normal. Tonsils symmetric. No tonsillar enlargement, erythema, or exudate. Eyes: Conjunctivae normal. EOM normal. Pupils equal, round, and reactive to light. No scleral icterus. Neck: Normal range of motion. Neck supple. No tracheal deviation present. Cardiovascular: Normal rate, regular rhythm. No gallop. No friction rub. No murmur heard. Symmetric radial artery pulses Pulmonary/Chest: Effort normal. No stridor. No respiratory distress. No wheezes. No rales. No rhonchi . No tenderness. Abdominal: Soft. Bowel sounds normal. No distension. No mass. No tenderness. No rebound. No guarding. Bilateral flank tenderness. Musculoskeletal: RUE: Normal range of motion. No tenderness. No deformity LUE: Normal range of motion. No tenderness. No deformity RLE: Normal range of motion. No edema. No tenderness. No deformity LLE: Normal range of motion. No edema. No tenderness. No deformity Neurological: Alert and oriented to person, place, and time. Normal strength. CN II-VII intact. No sensory deficit. GCS eye subscore is 4. GCS verbal subscore is 5. GCS motor subscore is 6. Normal coordination Skin: Skin is warm and dry. No rash noted. No pallor. Normal capillary refill. Psychiatric: Normal mood. Normal affect. Const: Vital Signs, click to edit/add: Vital Signs - 24 hr 05/02/24 14:03 05/02/24 15:30 Temperature 98.4 F Pulse Rate [Pulse Oximeter] 92 83 Respiratory Rate 18 16 [facility] 119/76 117/71 Pulse Oximetry 97 99 Oxygen Delivery Me thod Room Air Room Air Course Vital Signs Vital signs: Initial Vital Signs Temperature 98.4 F 05/02/24 14:03 Temperature Source Temporal Artery Scan 05/02/24 14:03 Pulse Rate 92 05/02/24 14:03 Respiratory Rate 18 05/02/24 14:03 Blood Pressure 119/76 05/02/24 14:03 Blood Pressure Mean 90 05/02/24 14:03 Blood Pressure Position Sitting 05/02/24 14:03 Pulse Oximetry 97 05/02/24 14:03 Oxygen Delivery Method Room Air 05/02/24 14:03 Vital Signs Temperature 98.4 F 05/02/24 14:03 Pulse Rate 92 05/02/24 14:03 Respiratory Rate 18 05/02/24 14:03 Blood Pressure 119/76 05/02/24 14:03 Pulse Oximetry 97 05/02/24 14:03 Oxygen Delivery Method Room Air 05/02/24 14:03 Temperature 98.4 F 05/02/24 14:03 Pulse Rate 83 05/02/24 15:30 Respiratory Rate 16 05/02/24 15:30 Blood Pressure 117/71 05/02/24 15:30 Pulse Oximetry 99 05/02/24 15:30 Oxygen Delivery Method Room Air 05/02/24 15:30 Medical Decision Making [facility] Narrative Medical decision making narrative: This patient presents for evaluation of bilateral flank pain associated with urinary urgency, dysuria, suprapubic pain.. This clinically is consistent with a urinary tract infection. Urinalysis confirms the infection. She actually had symptoms of UTI a couple of weeks ago and was treated with a 5 day course of antibiotic, but were not able to determine which antibiotic she was given previously. She has had recurrent symptoms for the past couple of days now associated with flank pain. Based on clinical symptoms I do think she probably has pyelonephritis here. She reports flank pain and some nausea but no fever. She is systemically quite well appearing. She is hemodynamically stable and afebrile here in the ER. No evidence for urosepsis. At this point I think that she is safe to manage with oral antibiotics at home. Will put her on Omnicef which would cover for most urinary pathogens and send urine culture to determine sensitivities for further antibiotic adjustment. There is no clinical evidence of appendicitis, colitis, diverticulitis or any intraabdominal catastrophe. She is not . No vaginal bleeding. Low suspicion for gynecologic or ovarian pathology causing her symptoms. The patient will be started on antibiotics for the infection. Return to ER immediately if increasing pain, vomiting, fever, or inability to tolerate the oral antibiotic. Follow up with primary physician is indicated if not improving in 2-3 days. Lab Data Labs: Lab Results 05/02/24 Range/Units 14:15 Urine Color Yellow (Yellow) Urine Appearance Slightly Cloudy A (Clear) Urine pH 6.5 (5.0-8.5) Ur Specific [place] 1.015 (1.000-1.030) Urine Protein Negative (Negative) Urine Glucose (UA) Negative (Negative) Urine Ketones Negative (Negative) Urine Blood 1+ A (Negative) Urine Nitrite Positive A (Negative) Urine Bilirubin Negative (Negative) Urine Urobilinogen 0.2 (0.2-1.0) Ur Leukocyte Esterase 1+ A (Negative) Urine RBC 2-5 A (0-2) Urine WBC 25-50 A (0-5) Urine WBC Clumps Few A (None) Ur Squamous Epith Cells Few (None-Few) Urine Bacteria Many A (None) Urine HCG, Qual Negative (Negative) Discharge Plan Discharge Clinical Impression: Pyelonephritis Patient Disposition: Home, Self-Care Condition: Stable Instructions: Kidney Infection (ED) Additional Instructions: As we discussed, please come back to the ER right away if you have high fever, uncontrolled nausea vomiting, worsening pain, weakness or dizziness, or if you have any concerns. It will usually take 2-3 days for the antibiotics to help your infection get better. To manage your pain you can use Tylenol (1000 mg per dose) every 6 hours or ibuprofen (600 mg per dose) every 6 hours. Use the prescription pain killer ([place]) if needed for breakthrough pain. Use caution with [place] because it causes dizziness, drowsiness, constipation, and can be addictive. Prescriptions: New hydrocodone-acetaminophen 5-325 mg tablet 1 tab PO Q4-6H PRN (Reason: pain) Qty: 10 0RF cefdinir 300 mg capsule 300 mg PO BID 10 Days Qty: 20 0RF fluconazole 150 mg tablet 150 mg PO Q3D PRNQty: 2 0RF Follow Up/Referrals: Tim Shane MD [Primary Care Provider] - Stand Alone Forms: [employer] Info Instructions
[2024-05-02 15:30] VITALS: BP 117/71; PULSE 83; RESP 16; O2SAT 99
--- OUTSIDE RECORDS SUMMARY | 2024-05-02 15:35 | XMS_ITS | Clinical Summary ---
Author Organization [facility] Address [address], [place] [address] Care Team Providers Care Civilian Technician Name Role Phone Unavailable Primary Care Provider Unavailabl e Source Comments You are receiving this document as you are listed as the primary care provider,follow-up provider, or the patient has been referred to you for consultation.This is in compliance with the Medicare and[facility] EHR Incentive Program,which states Providers who transition [...]
--- OUTSIDE RECORDS SUMMARY | 2024-05-02 15:35 | XMS_ITS | Clinical Summary ---
Author Organization [facility] Address [place], [place] [address] Care Team Providers Care Glue Specialty Supervisor Name Role Phone Tamara Wei MD Primary [...] Births 1 Date Outcome GA Total Labor Labor//3rd Weight Sex Type Anes PTL Sury A1 [...] 166 cm (5' 5.35) 07/17/2021 9:18 AM FOREST FIRE FIGHTERS DISPATCHER Body Mass Index - - Plan of Treatment Health Maintenance Due Date Last Done Comments HIV for age 15-65 2015 Hepatitis C screening for age 18-79 2018 Chlamydia for age 16-24 03/19/2021 03/19/2020 Tetanus booster 01/27/2022 01/28/2012 BMI (ht and wt on same day) for age 18+ 07/17/2022 07/17/2021, 02/03/2021 Depression screening for age 12+ 07/17/2022 07/17/2021 COVID-19 vaccine series ( season) 2024 10/16/2021, 2020, 08/11/2020 Influenza for age 9-49 [...] Procedure Name Priority Date/Time Associated Diagnosis Comments ASSISTANT BOILER OPERATOR THIN PREP PAP SCREEN IMAGED Routine 07/19/2022 1:10 PM FOREST FIRE FIGHTERS DISPATCHER GC CHLAMYDIA TRACH PROBE Routine 03/19/2020 2:35 PM CDT from Last 3 Months or Most Recently Relevant to Health Maintenance Results * ASSISTANT BOILER OPERATOR THIN PREP PAP SCREEN IMAGED (07/19/2022 1:10 PM FOREST FIRE FIGHTERS DISPATCHER) Case Report Gynecologic Cytology Report ? Case: [id number] ? Authorizing Provider: ??Abiel, Marlena Yancey MD ?Collected: ? 07/19/2022 1310 ? Ordering Location: ? [facility] ?Received: ?07/21/2022 0955 ? First Screen: ?Vika Nath ? Specimen: ?ASSISTANT BOILER OPERATOR ThinPrep Vial Screening, Cervical/Vaginal ? 08/06/2022 4:20 PM FOREST FIRE FIGHTERS DISPATCHER [facility] INTERPRETATION/ RESULT NEGATIVE FOR INTRAEPITHELIAL LESION OR MALIGNANCY (NIL) (none) 08/06/2022 4:20 PM FOREST FIRE FIGHTERS DISPATCHER [facility] IMEN ADEQUACY Satisfactory for evaluation Endocervical component present 08/06/2022 4:20 PM FOREST FIRE FIGHTERS DISPATCHER [facility] HPV REQUEST HPV if ASCUS 08/06/2022 4:20 PM FOREST FIRE FIGHTERS DISPATCHER [facility] Date of LMP 07/07/2022 08/06/2022 4:20 PM FOREST FIRE FIGHTERS DISPATCHER [facility] Last Pap Date 12/10/2021 08/06/2022 4:20 PM FOREST FIRE FIGHTERS DISPATCHER [facility] Last Pap Result First Pap/Unknown 4:20 PM FOREST FIRE FIGHTERS DISPATCHER [facility] Abnormal Pap or [place] Bx in last 5 years No 08/06/2022 4:20 PM FOREST FIRE FIGHTERS DISPATCHER [facility] [place] Bx Done Today No 08/06/2022 4:20 PM FOREST FIRE FIGHTERS DISPATCHER [facility] Additional Information 08/06/2022 4:20 PM FOREST FIRE FIGHTERS DISPATCHER [facility] Comment: Interpreted at [facility] - [address], [place] [address] Automated Review Successful 08/06/2022 4:20 PM FOREST FIRE FIGHTERS DISPATCHER [facility] Comment:Specimen processed s uccessfully by automated housing manager device, ThinPrep Imaging System, [employer] Note The pap test is a screening technique, not a diagnostic procedure. It is used primarily to screen for squamous cancers and precursor lesions. Published studies have shown that it is subject to both false negative and false positive results. The pap test should not be used as the sole means to diagnose or exclude pre-malignant and malignant lesions. 08/06/2022 4:20 PM FOREST FIRE FIGHTERS DISPATCHER [facility] Other (Cervical/Vagina l) 07/19/2022 1:10 PM FOREST FIRE FIGHTERS DISPATCHER 07/21/2022 9:55 AM FOREST FIRE FIGHTERS DISPATCHER Marlena Naye Beebe MD PATHOLOGY/CYTOLOGY [facility] [address] [place] [address], [place] * GC CHLAMYDIA TRACH PROBE (03/19/2020 2:35 PM CDT) CHLAMYDIA PROBE Negative 0 2:50 PM CDT [facility] N GONORRHOEAE PROBE Negative 03/21/2020 2:50 PM CDT [facility] Other VAGINAL SWAB / Unknown Client Collect / Unknown 03/19/2020 2:35 PM CDT 03/20/2020 4:57 PM CDT Amy Grande MD MICROBIOLOGY [facility] [address] [place] [address], [place] from Last 3 Months or Most Recently Relevant to Health Maintenance Care Teams Glue Specialty Supervisor Relationship Specialty Start Date End Date Tamara Wei MD [address] [place] [address] PCP - General Family Practice 04/12/17
== END 2024-05-02 16:07 | disposition home or self-care (01) ==
LOC: ED 15:34
PROVIDERS: Emergency Provider Emergency Medicine; PCP Family Medicine
DX: N10 Acute pyelonephritis (principal)
CPT/HCPCS: 81001; 81025; 87086; 87186; 99283

== ENCOUNTER 2025-01-10 09:00 | Outpatient (CLI) | payer OTHER, SELFPAY ==
[2025-01-10 12:28] LABS: Chlamydia DNA Amplified* NOT DETECTED (No Detected); GC DNA Amplified* NOT DETECTED (No Detected)
== END 2025-01-10 09:01 | disposition home or self-care (01) ==
LOC: NFLDREF 09:01
PROVIDERS: Visit Provider Physician Assistant
DX: N89.8 Other specified noninflammatory disorders of vagina (principal); R30.0 Dysuria
CPT/HCPCS: 87086; 87491; 87591

== ENCOUNTER 2025-02-27 17:40 | Outpatient (CLI) | payer OTHER, SELFPAY | END 2025-02-27 17:41 | disposition home or self-care (01) | LOC: NFLDREF 02-28 03:30 | PROVIDERS: Visit Provider Physician Assistant Surgical | DX: N30.01 Acute cystitis with hematuria (principal); B96.20 Unspecified Escherichia coli [E. coli] as the cause of diseases classified elsewhere | CPT/HCPCS: 87086 ==

== ENCOUNTER 2025-06-06 17:05 | Emergency (ER) | payer OTHER, SELFPAY ==
[2025-06-06 17:07] VITALS: BP 134/80; PULSE 89; RESP 20; TEMP 36.8; O2SAT 98; BMI 32.6
--- OUTSIDE RECORDS SUMMARY | 2025-06-06 17:07 | XMS_ITS | Clinical Summary ---
Author Organization [facility] Address [address] [place] [address] Care Team Providers Care Educational Assistant Name Role Phone Unavailable Primary Care Provider Unavailabl e Source Comments You are receiving this document as you are listed as the primary care provider,follow-up provider, or the patient has been referred to you for consultation.This is in compliance with the Medicare and[facility] EHR Incentive Program,which states Providers who transition [...] Exposure: Never Tobacco Cessation:Counseling Given: Not Answered Comments No Sex and Gender Information Value Date Recorded Sex Assigned at Not on file Legal Sex Female 5:13 PM CDT Gender Identity Not on file Sexual Orientation Not on file Last Filed Vital Signs Vital Sign Reading Time Taken Comments Blood Pressure 137/77 06/10/2023 5:41 PM CDT Pulse 89 06/10/2023 5:41 PM CDT Temperature 37.1 C (98.8 F) 06/10/2023 5:41 PM CDT Respiratory Rate 14 06/10/2023 5:41 PM CDT Oxygen Saturation 100% 06/10/2023 5:41 PM CDT Inhaled Oxygen Concentration - - Weight - - Height - - Body Mass Index - - Plan of Treatment Health Maintenance Due Date Last Done Comments Cervical Cancer Screening Due 2000 Chlamydia 2000 Hep C Screening (Preventive Services) 2000 HIV Screening (Preventive Services) 2016 Adult Preventive Visit 2018 HepB Vaccine (1) 2019 COVID-19 Vaccine (4 - 2025-26 season) 2025 10/16/2021, 2020, 08/11/2020 Influenza Vaccine (#1) 2025 , 05/17/2019, 05/23/2018, Additional history exists DTaP/Tdap/Td Vaccine (8 - Tdap) 12/11/2031 12/10/2021, 01/28/2012, 03/04/2006, Additional history exists Zoster/Shingles Vaccine (1 of 2) 2050 Hib Vaccine Completed 12/15/2001, 12/06, 12/15/2001, Additional history exists Pneumococcal Vaccine Aged Out 12/15/2001, 12/15/2001, 01/11/2001, Additional history exists No longer eligible based on patient's age to complete this topic IPV (Polio) Vaccine Completed 03/04/2006, 03/04/2006, 06/08/2001, Additional history exists MCV4 Vaccine Aged Out 01/28/2012 No longer eligi ble based on patient's age to complete this topic HepA Vaccine Completed 03/15/2013, 01/07, 01/28/2012, Additional history exists HPV Vaccine Completed 11/16/2017, 04/08, 03/15/2013, Additional history exists Meningococcal B Vaccine Aged Out No l onger eligible based on patient's age to complete this topic
--- OUTSIDE RECORDS SUMMARY | 2025-06-06 17:07 | XMS_ITS | Clinical Summary ---
Author Organization [facility] Address [address] [place] [address] Care Team Providers Care Greeter Name Role Phone Tamara Wei MD Primary Care Provider + Allergies No known active allergies Medications pyridoxine (Vitamin B-6) 50 mg tabletIndicatio ns:Nausea/vomit ing in (HC) Take 1 Tablet (50 mg) by mouth once daily. 90 Tablet 1 07/17/2021 Active doxylamine (UNISOM) 25 mg tabletIndicatio ns:Nausea/vomit ing in (HC) Take 1-2 Tablets (25-50 mg) by mouth at bedtime if needed for Sleep. 60 Tablet 07/17/2021 Active Active Problems No known active problems Immunizations Immunization Administration Dates Next Due COVID-19 vaccine (Moderna 100mcg/0.5mL) PF MDAlfredo 2020,08/11/2020 DTaP 03/04/2006, 2,03/13/2001,01/11,2000 HIB PRP-T (ActHIB,Hiberix) [...] Housing in the Last Year 1 11/22/2022 Comments No Sex and Gender Information Value Date Recorded Sex Assigned at Not on file Legal Sex Female 7:27 AM APPLICATIONS DEVELOPMENT ANALYST Gender Identity Not on file Sexual Orientation [...] 88 11/22/2022 1:28 PM CDT Temperature 36.4 C (97.5 F) 11/22/2022 1:28 PM CDT Respiratory Rate 12 11/22/2022 1:28 PM CDT Oxygen Saturation 98% 11/22/2022 1:28 PM CDT Inhaled Oxygen Concentration - - Weight 74.8 kg (165 lb) 11/22/2022 1:28 PM CDT Height 166 cm (5' 5.35) 07/17/2021 9:18 AM APPLICATIONS DEVELOPMENT ANALYST Body Mass Index - - Plan of Treatment Health Maintenance Due Date Last Done Comments Depression screening for age 12+ 2012 HIV for age 15-65 2015 Hepatitis C screening for age 18-79 2018 Chlamydia for age 16-24 03/19/2021 03/19/2020 Tetanus booster 01/27/2022 01/28/2012 BMI (ht and wt on same day) for age 18+ 07/17/2022 07/17/2021, 02/03/2021 Influenza Vaccine (#1) 2025 , 05/17/2019, 05/23/2018, Additional history exists Pap test for age 21-65 07/19/2025 07/19/2022 RSV vaccine for adults or (1 - 1-dose 75+ series) 2075 Hepatitis B series for 19+ Completed 12/15, 12/15/2001, 01/11/2001, Additional history exists Pneumococcal series for age 6-49 Aged Out 12/15/2001, 12/15/2001, 01/11/2001, Additional history exists No longer eligible based on patient's age to complete this topic HPV series for age 9-45 Completed 11/17/19 18, 04/22/2014, 03/15/2013, Additional history exists Procedures Procedure Name Priority Date/Time Associated Diagnosis Comments DIRECT MARKETING MANAGER THIN PREP PAP SCREEN IMAGED Routine 07/19/2022 1:10 PM APPLICATIONS DEVELOPMENT ANALYST GC CHLAMYDIA TRACH PROBE Routine 03/19/2020 2:35 PM CDT from Last 3 Months or Most Recently Relevant to Health Maintenance Results * DIRECT MARKETING MANAGER THIN PREP PAP SCREEN IMAGED (07/19/2022 1:10 PM APPLICATIONS DEVELOPMENT ANALYST) Case Report Gynecologic Cytology Report Case: [id number] Authorizing Provider: Marlena Beebe MD Collected: 07/19/2022 1310 Ordering Location: [facility] Received: 07/21/2022 0955 First Screen: Vika Nath Specimen: DIRECT MARKETING MANAGER ThinPrep Vial Screening, Cervical/Vaginal 08/06/2022 4:20 PM APPLICATIONS DEVELOPMENT ANALYST [facility] INTERPRETATION/ RESULT NEGATIVE FOR INTRAEPITHELIAL LESION OR MALIGNANCY (NIL) (none) 08/06/2022 4:20 PM APPLICATIONS DEVELOPMENT ANALYST [facility] at [facility] APPLICATIONS DEVELOPMENT ANALYST SPECIMEN ADEQUACY Satisfactory for evaluation Endocervical component present 08/06/2022 4:20 PM APPLICATIONS DEVELOPMENT ANALYST [facility] HPV REQUEST HPV if ASCUS 08/06/2022 4:20 PM APPLICATIONS DEVELOPMENT ANALYST [facility] Date of LMP 07/07/2022 08/06/2022 4:20 PM APPLICATIONS DEVELOPMENT ANALYST [facility] Last Pap Date 12/10/2021 08/06/2022 4:20 PM APPLICATIONS DEVELOPMENT ANALYST [facility] Last Pap Result First Pap/Unknown 4:20 PM APPLICATIONS DEVELOPMENT ANALYST [facility] Abnormal Pap or [place] Bx in last 5 years No 08/06/2022 4:20 PM APPLICATIONS DEVELOPMENT ANALYST [facility] [place] Bx Done Today No 08/06/2022 4:20 PM APPLICATIONS DEVELOPMENT ANALYST [facility] Additional Information 08/06/2022 4:20 PM APPLICATIONS DEVELOPMENT ANALYST [facility] Comment: Interpreted at [facility] - [address], [place] [address] Automated Review Successful 08/06/2022 4:20 PM APPLICATIONS DEVELOPMENT ANALYST [facility] ENTRAL LABORATORY Comment:Specimen processed s uccessfully by automated chlorine plant operator device, ThinPrep Imaging System, [employer] Note The pap test is a screening technique, not a diagnostic procedure. It is used primarily to screen for squamous cancers and precursor lesions. Published studies have shown that it is subject to both false negative and false positive results. The pap test should not be used as the sole means to diagnose or exclude pre-malignant and malignant lesions. 08/06/2022 4:20 PM APPLICATIONS DEVELOPMENT ANALYST [facility] ENTRAL LABORATORY Other (Cervical/Vagina l) 07/19/2022 1:10 PM APPLICATIONS DEVELOPMENT ANALYST 07/21/2022 9:55 AM APPLICATIONS DEVELOPMENT ANALYST Marlena Beebe MD PATHOLOGY/CYTOLOGY Final Result Performing Organization Address City/[facility]/ZIP Co de Phone Number [facility] [address] [place] [address], * GC CHLAMYDIA TRACH PROBE (03/19/2020 2:35 PM CDT) CHLAMYDIA PROBE Negative 0 2:50 PM CDT [facility] N GONORRHOEAE PROBE Negative 03/21/2020 2:50 PM CDT [facility] Other VAGINAL SWAB / Unknown Client Collect / Unknown 03/19/2020 2:35 PM CDT 03/20/2020 4:57 PM CDT Amy Grande MD MICROBIOLOGY Final Result [facility] [address] [place] [address], from Last 3 Months or Most Recently Relevant to Health Maintenance Insurance [place] [address] Care Teams Greeter Relationship Specialty Start Date End Date Tamara Wei MD [address] [place] [address] PCP - General Family Practice 04/12/17
[2025-06-06 17:25] LABS: Carboxyhemoglobin* 1.5 % (0.0-5.0)
--- NOTE | 2025-06-06 18:09 | ED.GENADULT ---
HPI - General Adult General Date Seen: 06/06/25 Chief complaint: Headache/Migraine Stated complaint: carbon monoxide exposure Time Seen by Provider: 06/06/25 17:18 Source: patient Mode of arrival: ambulatory Limitations: no limitations History of Present Illness HPI narrative: Patient is a 24-year-old female presenting to the emergency department for headache and abdominal pain. She states symptoms started yesterday. She says the headache is typically about a 7/10 and has been persistent since yesterday. Says the headache feels like there is a band around her head. She has not been taking much for her headache has she is also having some abdominal discomfort. States she started having epigastric pain also yesterday but has since developed abdominal pain on her right lower and left lower quadrant of her abdomen. States she has not have an appendix. Does state the abdominal pain seems to have improved since she arrived to the emergency department. She is feeling nauseated but has not had any medicine for the nausea yet. Has been having normal bowel movements. Denies dysuria or polyuria but does states her urine has appeared slightly cloudy. Denies diarrhea constipation. She was told to come in by family friend who is a wide area network systems administrator as she noticed that the gas stove has been on for several days by accident. She states she could smell the gas in the house. Related Data Previous Rx's ?Medication ?Instructions ?Recorded valacyclovir 500 mg tablet 500 mg PO BID 3 days #6 tabs 03/29/25 Allergies Allergy/AdvReac Type Severity Reaction Status Date / Time No Known Allergies Allergy Verified 03/29/25 09:11 Review of Systems Status of ROS: Reports: 10 or more systems reviewed and unremarkable except as noted in History and below [facility] Medical History History of heavy vaginal bleeding ?Z87.42 - Personal history of other diseases of the female genital tract (ICD-10) Surgical History History of endoscopy (12/08/18) ?Z98.890 - Other specified postprocedural states (ICD-10) Status post laparoscopic appendectomy ?Z90.49 - Acquired absence of other specified parts of digestive tract (ICD-10) History of umbilical hernia repair (2004) ?Z98.890 - Other specified postprocedural states (ICD-10) ?Z87.19 - Personal history of other diseases of the digestive system (ICD-10) History of tympanostomy (2003) ?Z98.890 - Other specified postprocedural states (ICD-10) History of tonsillectomy (2004) ?Z90.89 - Acquired absence of other organs (ICD-10) Family History Paternal Grandfather Family history of CABG, Onset Age: 50 Maternal Grandmother Diabetes Pancreatic cancer 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 Moist mucous membranes. Neck: Symmetric, trachea midline, No thyromegaly. CVS: RRR, No murmurs or gallops. Peripheral pulses 2+ and equal in all extremities RESP: Unlabored respiratory effort. Clear to auscultation bilaterally. GI: Epigastric and suprapubic tenderness, Nondistended, No rebound or guarding. MSK:Extremities w/o deformity, Normal Active ROM Skin: Warm, Dry. No rashes or lesions. Neuro: Normal Muscle tone, Cranial nerves 2-12 grossly intact, normal ofuv-lw-yvst, normal lexxah-yd-nlrl, normal gait, normal strength 5/5 upper lower extremities bilaterally, normal sensation upper and lower extremities bilaterally, normal rapid alternating movements. Psych: Awake, Alert, & Oriented x3. Appropriate mood and affect. Const: Vital Signs, click to edit/add: Vital Signs - 24 hr 06/06/25 17:07 Temperature 98.2 F Pulse Rate [Pulse Oximeter] 89 Respiratory Rate 20 Blood Pressure [Ri ght Upper Arm] 134/80 Pulse Oximetry 98 Oxygen Delivery Me thod Room Air Course Vital Signs Vital signs: Initial Vital Signs Temperature 98.2 F 06/06/25 17:07 Temperature Source Temporal Artery Scan 06/06/25 17:07 Pulse Rate 89 06/06/25 17:07 Respiratory Rate 20 06/06/25 17:07 Blood Pressure 134/80 06/06/25 17:07 Blood Pressure Mean 98 06/06/25 17:07 Blood Pressure Position Sitting 06/06/25 17:07 Pulse Oximetry 98 06/06/25 17:07 Oxygen Delivery Method Room Air 06/06/25 17:07 Vital Signs Temperature 98.2 F 06/06/25 17:07 Pulse Rate 89 06/06/25 17:07 Respiratory Rate 20 06/06/25 17:07 Blood Pressure 134/80 06/06/25 17:07 Pulse Oximetry 98 06/06/25 17:07 Oxygen Delivery Method Room Air 06/06/25 17:07 Temperature 98.2 F 06/06/25 17:07 Pulse Rate 89 06/06/25 17:07 Respiratory Rate 20 06/06/25 17:07 Blood Pressure 134/80 06/06/25 17:07 Pulse Oximetry 98 06/06/25 17:07 Oxygen Delivery Method Room Air 06/06/25 17:07 Medications Administered Medications: Discontinued Medications Generic Name Dose Route Start Last Admin Trade Name Freq PRN Reason Stop Dose Admin Diphenhydramine HCl 25 mg 06/06/25 18:07 06/06/25 18:27 Diphenhydramine 50 Mg/Ml Inj IVP 06/06/25 18:08 25 mg ONCE ONE Administration Lactated Ringer's 1,000 mls @ 1,000 mls/hr 06/06/25 18:07 06/06/25 18:25 Lactated Ringers 1000 Ml IV 06/06/25 19:06 1,000 mls/hr .Q1H ONE Administration Ketorolac Tromethamine 15 mg 06/06/25 18:07 06/06/25 18:25 Ketorolac 15 Mg/Ml Inj IVP 06/06/25 18:08 15 mg ONCE ONE Administration Metoclopramide HCl 10 mg 06/06/25 18:07 06/06/25 18:28 Metoclopramide Hcl 5 Mg/Ml Inj IVP 06/06/25 18:08 10 mg ONCE ONE Administration Medical Decision Making MDM Narrative Medical decision making narrative: Patient is a 24-year-old female presenting for headache and abdominal pain. For the headache differential includes migraine, cluster headache, tension headache, intracranial mass, carbon monoxide poisoning. I do not believe a CT scan of her head is necessary at this time I spent concern for intracranial masses very low. Her description of her headache sounds more like a tension headache. It speaking to her about migraine cocktail and this will be ordered. Also checked a carboxyhemoglobin. For her abdominal pain could be gastroenteritis but she is having some cloudy urine and suprapubic pain so will order urinalysis. Also ordered lipase for her epigastric pain. For unlikely to be appendicitis as she has had and a appendectomy and stump appendicitis is very rare. When not do any imaging at this time as I believe will be unnecessary radiation by will check a CBC and CMP. Lab work shows no concerning abnormalities. She is feeling better after the medication. She feels safe for discharge. I will prescribe her Zofran via instymeds. She is agreeable to this plan. Lab Data Labs: Lab Results 06/06/25 06/06/25 Range/Units 17:22 18:45 WBC 9.42 (4.50-11.00) K/uL RBC 4.69 (4.00-5.20) m/uL Hgb 13.5 (12.0-16.0) gm/dL Hct 41.4 (33.0-51.0) % MCV 88 (80-100) fL MCH 29 (26-34) pg MCHC 33 (32-36) gm/dL RDW Coeff of Roland 12.3 (11.5-15.5) % Plt Count 392 (140-440) K/uL Neut % (Auto) 65.3 (42.0-72.0) % Lymph % (Auto) 24.9 (20-44) % [place] % (Auto) 8.1 (0.0-11.0) % Eos % (Auto) 1.0 (0.0-7.0) % Baso % (Auto) 0.5 (0.0-3.0) % Neut # (Auto) 6.15 (1.7-7.0) K/uL Lymph # (Auto) 2.35 (0.90-2.90) K/uL [place] # (Auto) 0.80 (0.00-0.90) K/UL Eos # (Auto) 0.09 (0.00-0.50) K/uL Baso # (Auto) 0.05 (0.00-0.30) K/uL Abs Immat Gran (auto) 0.02 (0.00-0.30) K/uL Imm/Tot Granulo (auto) 0.2 % Carboxyhemoglobin 1.5 (0.0-5.0) % Sodium 136 (135-149) mmol/L Potassium 4.0 (3.6-5.1) mmol/L Chloride 98 (96-114) mmol/L Carbon Dioxide 26 (20-32) mmol/L Anion Gap 12 (7-15) mEq/L BUN 11 (5-24) mg/dL Creatinine 0.6 (0.5-1.5) mg/dL Estimated Creat Clear 124.85 Estimated GFR 128 ml/min Glucose 137 H (60-115) mg/dL Calcium 10.2 (8.4-10.6) mg/dL Total Bilirubin 0.4 (0.1-1.5) mg/dL AST 12 (12-35) U/L ALT 19 (4-35) U/L Alkaline Phosphatase 180 H (40-150) U/L Total Protein 8.1 (6.0-8.3) g/dL Albumin 4.7 (3.3-5.0) g/dL Lipase 120 (23-300) U/L HCG, Qual Negative (Negative) Urine Color Yellow (Yellow) Urine Appearance Cloudy A (Clear) Urine pH 6.0 (5.0-8.5) Ur Specific [place] 1.025 (1.000-1.030) Urine Protein Negative (Negative) Urine Glucose (UA) Negative (Negative) Urine Ketones Negative (Negative) Urine Blood Trace-intact A (Negative) Urine Nitrite Negative (Negative) Urine Bilirubin Negative (Negative) Urine Urobilinogen 2.0 A (0.2-1.0) Ur Leukocyte Esterase Negative (Negative) Urine RBC 0-2 (0-2) Urine WBC 2-5 (0-5) Ur Squamous Epith Cells Moderate A (None-Few) Urine Bacteria Few A (None) Urine Yeast Few A (None) Urine HCG, Qual Negative (Negative) Discharge Plan Discharge Clinical Impression: Tension headache Patient Disposition: Home, Self-Care Condition: Stable Instructions: Tension Headache (ED) Additional Instructions: Take Tylenol ibuprofen for headache. 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 Use it as needed for your nausea. Return to emergency department for new or worsening symptoms. Prescriptions: No Action valacyclovir 500 mg tablet 500 mg PO BID 3 Days Qty: 6 2RF Follow Up/Referrals: Provider,Not a Local [Primary Care Provider, Family Practice] Stand Alone Forms: [email or web address] Info Instructions
[2025-06-06] MEDS: LACTATED RINGERS 1000 ML 1,000 ML IV (18:25)
[2025-06-06 18:28] LABS: Hematocrit* 41.4 % (33.0-51.0); Hemoglobin* 13.5 gm/dL (12.0-16.0); Immature Granulocytes Abs Auto 0.02 K/uL (0.00-0.30); Immature Granulocytes Pct Auto 0.2 %; Lymphocytes Absolute Auto 2.35 K/uL (0.90-2.90); Mean Corpuscular HGB Conc 33 gm/dL (32-36); Mean Corpuscular Hemoglobin 29 pg (26-34); Mean Corpuscular Volume 88 fL (80-100); RDW Coefficient of Variation % 12.3 % (11.5-15.5); Red Blood Count* 4.69 m/uL (4.00-5.20); White Blood Count* 9.42 K/uL (4.50-11.00)
[2025-06-06] MEDS: METOCLOPRAMIDE HCL 5 MG/ML INJ 10 MG IVP (18:28)
[2025-06-06 18:29] LABS: Chloride* 98 mmol/L (96-114); Potassium* 4.0 mmol/L (3.6-5.1); Slide Review Reflex No
[2025-06-06 18:31] LABS: Blood Urea Nitrogen* 11 mg/dL (5-24); Creatinine* 0.6 mg/dL (0.5-1.5); Est. Creatinine Clearance* 124.85; Estimated Glomerular Filt Rate 128 ml/min
[2025-06-06 18:32] LABS: Alkaline Phosphatase* 180 U/L (40-150); Calcium* 10.2 mg/dL (8.4-10.6); Carbon Dioxide* 26 mmol/L (20-32); Glucose* 137 mg/dL (60-115)
[2025-06-06 18:37] LABS: Aspartate Amino Transferase* 12 U/L (12-35)
[2025-06-06 18:39] LABS: Alanine Aminotransferase* 19 U/L (4-35); HCG Qualitative Serum* Negative (Negative)
[2025-06-06 18:45] LABS: Albumin* 4.7 g/dL (3.3-5.0); Anion Gap 12 mEq/L (7-15); Sodium* 136 mmol/L (135-149)
[2025-06-06 18:48] LABS: Bilirubin Total* 0.4 mg/dL (0.1-1.5); Total Protein* 8.1 g/dL (6.0-8.3)
[2025-06-06 18:57] LABS: Appearance Urine Cloudy (Clear)
[2025-06-06 19:12] LABS: Ur HCG Qualitative* Negative (Negative)
[2025-06-06 19:40] VITALS: BP 128/74; PULSE 84; RESP 20; TEMP 36.8; O2SAT 98
[2025-06-06 19:41] VITALS: BP 128/74; PULSE 84; RESP 20; TEMP 36.8
== END 2025-06-06 19:41 | disposition home or self-care (01) ==
PROVIDERS: Emergency Provider Student in an Organized Health Care Education/Training Program
DX: G44.209 Tension-type headache, unspecified, not intractable (principal)
CPT/HCPCS: 36415; 80053; 81001; 81025; 82375; 83690; 84703; 85025; 87086; 96374; 96375; 99284; J1200; J1885; J2765; J7120